=== PATIENT | female | born 1945 | race Caucasian/White ===

== ENCOUNTER → 2017-03-25 | Outpatient (CLI) | payer OTHER ==
[2017-03-25 14:17] LABS: ALB/GLOB RATIO 1.2 (0.9-2); ALT/SGPT 29 U/L (12-78); AST/SGOT 18 U/L (15-37); BLOOD UREA NITROGEN 23 mg/dl (7-18); BUN/CREATININE RATIO 19.1 (10-20); CARBON DIOXIDE 30 mmol/L (21-32); CHLORIDE 103 mmol/L (98-107); CHOLESTEROL 184 mg/dl (0-200); GLUCOSE 128 mg/dl (70-99); MAGNESIUM 2.3 mg/dl (1.8-2.4); SODIUM 141 mmol/L (136-145); TRIGLYCERIDES 92 mg/dl (0-150); VERY LOW DENSITY LIPOPROT CALC 18 mg/dl
[2017-03-25 14:21] LABS: ALKALINE PHOSPHATASE 36 U/L (45-117); CALCIUM 10.7 mg/dl (8.5-10.1); CHOLESTEROL/HDL RATIO 2.7; HDL CHOLESTEROL 68 mg/dl; LDL CHOLESTEROL CALCULATED 98 mg/dl
[2017-03-25 14:25] LABS: ESTIMATED AVERAGE GLUCOSE 140 mg/dl; HA1C FLAG Normal (Normal)
== END | disposition home or self-care (01) ==
LOC: C.LABMFLN 08:35
PROVIDERS: ATTEND Family Medicine
DX: Z00.00 Encounter for general adult medical examination without abnormal findings (principal); E11.9 Type 2 diabetes mellitus without complications; R35.0 Frequency of micturition; E78.5 Hyperlipidemia, unspecified; E55.9 Vitamin D deficiency, unspecified; E83.42 Hypomagnesemia

== ENCOUNTER → 2017-08-18 | Outpatient (CLI) | payer OTHER, MEDICARE ==
--- NOTE | 2017-08-18 13:09 | MAMMOGRAPHY REPORT ---
BILATERAL DIGITAL SCREENING MAMMOGRAM WITH CAD: 08/18/2017 CLINICAL HISTORY: Routine screening examination. TECHNIQUE: Bilateral CC, MLO and repeat right CC view with the nipple in profile were obtained. Cur rent study was also evaluated with a Computer Aided Detection (CAD) system. COMPARISON: Comparison is made to exams dated: 08/14/2015 mammogram, 08/15/2016 mammogram, 08/11/2014 m ammogram - [facility], 01/12/2013 mammogram - [facility], 3 mammogram - [facility], and 12/06/2011 mammogram - [facility]. BREAST COMPOSITION: There are scattered areas of fibroglandular density in both breasts. FINDINGS: A linear scar marker overlies the upper inner quadrant of the left breast, and 3 circular m ole markers project over the right breast. There are a few benign calcifications scattered bilateral ly. No new suspicious mass, architectural distortion or cluster of microcalcifications is seen. IMPRESSION: ACR BI-RADS CATEGORY 1: NEGATIVE There is no mammographic evidence of malignancy. A 1 year screening mammogram is recommended. The pa tient will receive written notification of the results. Approximately 10% of breast cancers are not detected with mammography. A negative mammographic report should not delay biopsy if a clinically suggestive mass is present. Amanda Muhammad M.D. ay/:08/18/2017 10:37:34 Social Research Assistant: Janelle Sinha RT(R)(M), [facility] letter sent: Normal 1/2 BI-RADS Code: ACR BI-RADS Category 1: Negative
== END | disposition home or self-care (01) ==
LOC: C.MAMM 09:20
PROVIDERS: ATTEND Surgery
DX: Z12.31 Encounter for screening mammogram for malignant neoplasm of breast (principal)

== ENCOUNTER → 2017-09-29 | Outpatient (CLI) | payer OTHER, MEDICARE ==
[2017-09-29 13:19] LABS: ESTIMATED AVERAGE GLUCOSE 146 mg/dl; HA1C FLAG Normal (Normal)
[2017-09-29 13:36] LABS: ALT/SGPT 22 U/L (12-78); BLOOD UREA NITROGEN 19 mg/dl (7-18); CALCIUM 9.4 mg/dl (8.5-10.1); CARBON DIOXIDE 28 mmol/L (21-32); CHLORIDE 104 mmol/L (98-107); CHOLESTEROL 172 mg/dl (0-200); CREATININE 1.04 mg/dl (0.60-1.20); GLUCOSE 128 mg/dl (70-99); MAGNESIUM 1.9 mg/dl (1.8-2.4); SODIUM 139 mmol/L (136-145); TRIGLYCERIDES 93 mg/dl (0-150); VERY LOW DENSITY LIPOPROT CALC 19 mg/dl
[2017-09-29 13:44] LABS: ALB/GLOB RATIO 0.9 (0.9-2); ALKALINE PHOSPHATASE 34 U/L (45-117); AST/SGOT 19 U/L (15-37); CHOLESTEROL/HDL RATIO 2.8; HDL CHOLESTEROL 61 mg/dl; LDL CHOLESTEROL CALCULATED 92 mg/dl
== END | disposition home or self-care (01) ==
LOC: C.LABMFLN 07:56
PROVIDERS: ATTEND Family Medicine
DX: E11.9 Type 2 diabetes mellitus without complications (principal); E05.00 Thyrotoxicosis with diffuse goiter without thyrotoxic crisis or storm; F32.9 Major depressive disorder, single episode, unspecified; E78.5 Hyperlipidemia, unspecified; E55.9 Vitamin D deficiency, unspecified; E83.42 Hypomagnesemia

== ENCOUNTER → 2017-10-08 | Outpatient (CLI) | payer OTHER, MEDICARE ==
[2017-10-08 18:22] LABS: THYROID STIMULATING HORMONE 2.14 uIu/ml (0.300-4.500)
== END | disposition home or self-care (01) ==
LOC: C.LABMFLN 10:50
PROVIDERS: ATTEND Family Medicine
DX: E05.00 Thyrotoxicosis with diffuse goiter without thyrotoxic crisis or storm (principal)

== ENCOUNTER → 2017-10-22 | Outpatient (CLI) | payer OTHER ==
--- NOTE | 2017-10-22 12:06 | EXERCISE STRESS ECHO ---
*NOTICE TO RECEIVING REPUBLICAN AGENCY This information is strictly Confidential and protected under [place] law. [place] law prohibits you from making any further disclosure of this information unless further disclosure is expressly permitted by the written consent of the person to whom it pertains or is authorized by law. A general authorization for the release of medical or other information is not sufficient for this purpose. Hospital accepts no responsibility if the information is made available to any other person, INCLUDING THE PATIENT. Interpretation Summary * This was a normal stress echocardiogram. * The stress echocardiogram is negative for inducible ischemia. * The ST segment changes following exercise are suggestive but not diagnostic of myocardial ischemia. Resting echocardiogram with mild concentric left ventricular hypertrophy and class 1 left ventricular diastolic dysfunction. Trace mitral regurgitation. Trace tricuspid regurgitation. Trace pulmonic regurgitation. Small circumferential pericardial effusion without evidence of cardiac tamponade. * -- Conclusions -- * Aortic valve sclerosis mild, without significant aortic valvular stenosis. Procedure Details * ECHOEX, CPT #[id number] * ECHO DOPPLER, CPT #[id number] * ECHO COLOR FLOW, CPT #[id number] * The study was technically difficult with many images being suboptimal in quality. * A contrast injection of Definity was performed to improve assessment of LV function. * Contrast was injected into an intravenous site in the left arm. * One vial of Definity ultrasound contrast was diluted in normal saline to a total volume of 10 ml. A total of '5' ml of solution was administered during imaging. * Lot # [id number] of Definity utilized for procedure. * Expiration date 11/17. * The attending nurse who injected the contrast agent was REYMUNDO GARCIA RN. Left Ventricle * The left ventricle is normal in size. * There is mild concentric left ventricular hypertrophy. * Ejection Fraction = 65-70%. * Left ventricular systolic function is normal. * A full diastolic examination was done with clinical findings of Class I diastolic dysfunction. * Resting wall motion: Normal. Stress wall motion: Appropriate increase in Left ventricular systolic function and decrease in cavity size. No stress induced segmental wall motion abnormalities. * The left ventricular ejection fraction increases normally with stress. The left ventricular end-systolic cavity size reduces post-stress (normal response). The left ventricular wall motion with stress is normal. Right Ventricle * The right ventricle is normal in size and function. Atria * The left atrial size is normal. * Right atrial size is normal. Mitral Valve * There is mild mitral annular calcification. * There is no mitral valve stenosis. * There is trace mitral regurgitation. Tricuspid Valve * The tricuspid valve is not well visualized. * There is no tricuspid stenosis. * There is trace tricuspid regurgitation. * Right ventricular systolic pressure is normal. Aortic Valve * The aortic valve is trileaflet. * The aortic valve opens well. * Aortic valve sclerosis mild, without significant aortic valvular stenosis. * No hemodynamically significant valvular aortic stenosis. * No aortic regurgitation is present. Pulmonic Valve * The pulmonary valve is inadequately visualized, but the Doppler data is adequate for interpretation. * Pulmonic stenosis is absent. * Trace pulmonic valvular regurgitation. Great Vessels * The aortic root is normal size. Pericardium * Small pericardial effusion. * There are no echocardiographic indications of cardiac tamponade. Stress Parameters * The baseline ECG displays normal sinus rhythm. * The baseline ECG displays normal ST segments. * 0.3 - 0.7 mm horizontal to upsloping inferolateral ST depressions. * Rest heart rate was '66' BPM. * Rest blood pressure was '121/70' * Maximum heart rate achieved was 127 bpm. * Maximum heart rate was 85 % of maximum age-predicted heart rate. * Maximum blood pressure was '173/56' * Total exercise time was '4:42' * Maximum exercise MET level achieved was '6.60' METS * Maximum treadmill speed was '2.50' miles per hour. * Maximum treadmill elevation was '12.00'% grade. * Exercise was terminated due to 'SOB' * The patient exhibited dyspnea during exercise. * Normal blood pressure response to exercise. * Exercise was stopped due to dyspnea. MMode 2D Measurements and Calculations IVSd 1.3 cm IVSs 2.5 cm LVIDd 4.3 cm LVIDs 2.8 cm LVPWd 1.3 cm LVPWs 1.5 cm IVS/LVPW 0.98 FS 36.6 % EDV(Teich) 84.8 ml ESV(Teich) 28.3 ml EF(Teich) 66.6 % EDV(cubed) 81.6 ml ESV(cubed) 20.8 ml EF(cubed) 74.5 % % IVS thick 97.1 % % LVPW thick 15.9 % LV mass(C)d 203.9 grams LV mass(C)dI 117.5 grams/m\S\2 LV mass(C)s 235.7 grams LV mass(C)sI 135.8 grams/m\S\2 SV(Teich) 56.5 ml SI(Teich) 32.6 ml/m\S\2 SV(cubed) 60.8 ml SI(cubed) 35.0 ml/m\S\2 Ao root diam 3.7 cm Ao root area 10.6 cm\S\2 ACS 1.5 cm LA dimension 3.3 cm asc Aorta Diam 3.2 cm LA/Ao 0.89 LVOT diam 1.9 cm LVOT area 2.8 cm\S\2 LVAd ap4 20.4 cm\S\2 LVLd ap4 6.9 cm EDV(MOD-sp4) 49.3 ml EDV(sp4-el) 50.9 ml LVAs ap4 10.5 cm\S\2 LVLs ap4 5.4 cm ESV(MOD-sp4) 17.0 ml ESV(sp4-el) 17.2 ml EF(MOD-sp4) 65.4 % EF(sp4-el) 66.3 % LVAd ap2 14.3 cm\S\2 LVLd ap2 6.0 cm EDV(MOD-sp2) 29.6 ml EDV(sp2-el) 28.9 ml LVAs ap2 8.0 cm\S\2 LVLs ap2 5.1 cm ESV(MOD-sp2) 10.3 ml ESV(sp2-el) 10.6 ml EF(MOD-sp2) 65.3 % EF(sp2-el) 63.3 % LVLd %diff -15.36 % EDV(MOD-bp) 40.9 ml LVLs %diff -7.15 % ESV(MOD-bp) 13.8 ml EF(MOD-bp) 66.3 % SV(MOD-sp4) 32.2 ml SI(MOD-sp4) 18.6 ml/m\S\2 SV(MOD-sp2) 19.3 ml SI(MOD-sp2) 11.1 ml/m\S\2 SV(MOD-bp) 27.2 ml SI(MOD-bp) 15.6 ml/m\S\2 SV(sp4-el) 33.8 ml SI(sp4-el) 19.5 ml/m\S\2 SV(sp2-el) 18.3 ml SI(sp2-el) 10.6 ml/m\S\2 Doppler Measurements and Calculations MV E max vance 90.1 cm/sec MV A max vance 104.6 cm/sec MV E/A 0.86 MV dec time 0.37 sec Ao V2 max 160.5 cm/sec Ao max PG 10.3 mmHg Ao max PG (full) 6.8 mmHg EDWARD(V,A) 1.6 cm\S\2 DEWARD(V,D) 1.6 cm\S\2 LV V1 max PG 3.5 mmHg LV V1 max 93.8 cm/sec PA V2 max 89.0 cm/sec PA max PG 3.2 mmHg PI end-d vance 105.3 cm/sec TR max vance 228.6 cm/sec
== END | disposition home or self-care (01) ==
LOC: C.CPL 09:13
PROVIDERS: ATTEND Family Medicine
DX: R06.09 Other forms of dyspnea (principal)

== ENCOUNTER → 2017-11-12 | Outpatient (CLI) | payer OTHER ==
--- NOTE | 2017-11-12 11:00 | DIAGNOSTIC IMAGING REPORT ---
CT SCAN OF THE CHEST WITHOUT IV CONTRAST CLINICAL HISTORY: Pulmonary nodules. COMPARISON STUDY: No priors. TECHNIQUE: CT scan of the thorax was performed from the thoracic inlet to the upper abdomen. Images are reviewed in the axial, sagittal, and coronal planes. IV contrast was not administered for this examination. A dose lowering technique was utilized adhering to the principles of ALARA. CT DOSE: 232.12 mGycm FINDINGS: Thyroid: Imaged portions of the thyroid gland are normal in size and attenuation. Thoracic aorta: There is atherosclerotic calcification of the thoracic aorta, which is normal in caliber and demonstrates 4-vessel variant arch anatomy. Heart: The heart is enlarged and there is a small to moderate pericardial effusion. The coronary arteries are densely calcified. The pulmonary trunk is dilated, measuring 3.6 cm in diameter. This suggests pulmonary artery hypertension. Lungs and pleural spaces: There is no airspace consolidation or pleural effusion. Linear atelectasis versus scarring is present at both lung bases. No concerning pulmonary lesion is seen. A large calcified granuloma is present at the right lung base. The trachea and central airways are clear. Mediastinum: There are scattered subcentimeter mediastinal lymph nodes, some of which contain coarse calcifications. Nicole: Not well assessed without IV contrast. There are small calcified right hilar nodes. Axillae: There is no axillary lymphadenopathy. Upper abdomen: Cholecystectomy clips are noted. Central intrahepatic biliary ductal dilatation is likely on a postoperative basis. There are calcified hepatic and splenic granulomas. A tiny hiatal hernia is observed. Skeletal structures: The skeletal structures are osteopenic. No lytic or blastic bony lesions are seen. IMPRESSION: 1. There is no airspace consolidation or pleural effusion. 2. No concerning pulmonary lesion is seen. 3. Cardiomegaly noting a small to moderate pericardial effusion. 4. There is evidence of remote granulomas infection, including a right lower lobe granuloma, calcification containing mediastinal and hilar lymph nodes, as well as calcified hepatic and splenic granulomas. 5. Additional findings as above. Electronically signed by: Rico Sharp M.D. 11/12/2017 10:59 AM Dictated Date/Time: 11/12/2017 10:53 AM
== END | disposition home or self-care (01) ==
LOC: C.CTS 10:33
PROVIDERS: ATTEND Family Medicine
DX: R91.8 Other nonspecific abnormal finding of lung field (principal)

== ENCOUNTER → 2018-04-01 | Outpatient (CLI) | payer OTHER ==
[2018-04-01 13:13] LABS: BASO % 0.8 %; BASO ABS # 0.04 K/uL (0-0.2); EOS % 3.2 %; EOS ABS # 0.17 K/uL (0-0.5); HEMATOCRIT 40.1 % (37-47); IG# 0.01 K/uL (0.00-0.02); LYMPH % 21.8 %; LYMPH ABS # 1.16 K/uL (1.2-3.4); MEAN CELL VOLUME 94.1 fL (80-100); MEAN CORPUSCULAR HEMOGLOBIN 30.5 pg (25-34); MEAN CORPUSCULAR HGB CONC 32.4 g/dl (32-36); MEAN PLATELET VOLUME 9.5 fL (7.4-10.4); MONO % 10.1 %; MONO ABS # 0.54 K/uL (0.11-0.59); NEUT % 63.9 %; NEUT ABS # 3.41 K/uL (1.4-6.5); PLATELET COUNT 389 K/uL (130-400); RED CELL DISTRIBUTION WIDTH CV 13.6 % (11.5-14.5); RED CELL DISTRIBUTION WIDTH SD 46.8 fL (36.4-46.3); WHITE BLOOD COUNT 5.33 K/uL (4.8-10.8)
[2018-04-01 13:47] LABS: HEMOGLOBIN A1C 6.7 % (4.5-5.6)
[2018-04-01 14:11] LABS: ALBUMIN 3.8 gm/dl (3.4-5.0); ALT/SGPT 29 U/L (12-78); AST/SGOT 30 U/L (15-37); BLOOD UREA NITROGEN 15 mg/dl (7-18); CALCIUM 10.1 mg/dl (8.5-10.1); CARBON DIOXIDE 29 mmol/L (21-32); CREATININE 1.15 mg/dl (0.60-1.20); GLUCOSE 130 mg/dl (70-99); POTASSIUM 3.7 mmol/L (3.5-5.1); SODIUM 137 mmol/L (136-145)
[2018-04-01 14:24] LABS: ALKALINE PHOSPHATASE 38 U/L (45-117); CHOLESTEROL 170 mg/dl (0-200); LDL CHOLESTEROL CALCULATED 97 mg/dl
== END | disposition home or self-care (01) ==
LOC: C.LABMFLN 09:22
PROVIDERS: ATTEND Family Medicine
DX: E11.9 Type 2 diabetes mellitus without complications (principal); J45.909 Unspecified asthma, uncomplicated; E05.00 Thyrotoxicosis with diffuse goiter without thyrotoxic crisis or storm; E78.5 Hyperlipidemia, unspecified; E55.9 Vitamin D deficiency, unspecified; E83.42 Hypomagnesemia; R05 Cough; R06.09 Other forms of dyspnea

== ENCOUNTER → 2018-04-02 | Outpatient (CLI) | payer OTHER ==
[2018-04-02 14:16] LABS: CREATININE RANDOM URINE 89.8 mg/dl
== END | disposition home or self-care (01) ==
LOC: C.LABMFLN 17:53
PROVIDERS: ATTEND Family Medicine
DX: E11.9 Type 2 diabetes mellitus without complications (principal); J45.909 Unspecified asthma, uncomplicated; E05.00 Thyrotoxicosis with diffuse goiter without thyrotoxic crisis or storm; E78.5 Hyperlipidemia, unspecified; E55.9 Vitamin D deficiency, unspecified; E83.42 Hypomagnesemia; R05 Cough

== ENCOUNTER → 2018-04-03 | Outpatient (CLI) | payer OTHER | END | disposition home or self-care (01) | LOC: C.LABMFLN 11:03 | PROVIDERS: ATTEND Family Medicine | DX: R35.0 Frequency of micturition (principal) ==

== ENCOUNTER 2020-06-29 10:43 | Inpatient (IN) ==
[2020-06-29] MEDS ORDERED: MAGNESIUM SULFATE / D5W 1 GM/100 ML BAG IV SCH (12:06)
[2020-06-29] MEDS ORDERED: ALBUTEROL HFA 8 GM INHALER INH ONE (12:06)
[2020-06-29] MEDS ORDERED: SODIUM CHLORIDE 0.9% 1000ML 1,000 ML IV ONE (12:06)
[2020-06-29 12:18] LABS: Basophils # (auto) 0.01 K/uL (0-0.2); Basophils % (auto) 0.1 %; Eosinophils # (auto) 0.03 K/uL (0-0.5); Eosinophils % (auto) 0.4 %; Hematocrit (blood only) 37.5 % (37-47); Hemoglobin 12.4 g/dL (12.0-16.0); Immature Granulocytes # (auto) 0.03 K/uL (0.00-0.02); Immature Granulocytes % (auto) 0.4 %; Lymphocytes # (auto) 0.72 K/uL (1.2-3.4); Lymphocytes % (auto) 9.7 %; Mean Corpuscular Hemoglobin 30.4 pg (25-34); Mean Corpuscular Hgb Conc 33.1 g/dL (32-36); Mean Corpuscular Volume 91.9 fL (80-100); Mean Platelet Volume 10.1 fL (7.4-10.4); Monocytes # (auto) 0.41 K/uL (0.11-0.59); Monocytes % (auto) 5.5 %; Neutrophils # (auto) 6.21 K/uL (1.4-6.5); Neutrophils % (auto) 83.9 %; Platelet Count 399 K/uL (130-400); RDW Standard Deviation 47.7 fL (36.4-46.3); Red Blood Count 4.08 M/uL (4.2-5.4); White Blood Count 7.41 K/uL (4.8-10.8)
[2020-06-29 12:25] LABS: Albumin Level 3.1 gm/dl (3.4-5.0); BUN Creatinine Ratio 18.8 (10-20); C Reactive Protein 16.4 mg/dl (0-0.29); Calcium 9.6 mg/dl (8.5-10.1); Est GFR (African American) 51.4; Est GFR (Non-African American) 44.4; Potassium 3.8 mmol/L (3.5-5.1); Prothrombin Time 10.5 Seconds (9.0-12.0)
[2020-06-29 12:33] LABS: Albumin Globulin Ratio 0.6 (0.9-2); Bilirubin,Total 0.5 mg/dl (0.2-1); Ferritin 385.2 ng/ml (8-388); Total Protein 8.1 gm/dl (6.4-8.2); Troponin I 0.283 ng/ml (0-0.045)
[2020-06-29] MEDS ORDERED: ASPIRIN 81 MG CHEW PO STA (12:35)
[2020-06-29 12:40] LABS: D Dimer 570 ug/L FEU (0-500)
--- NOTE | 2020-06-29 12:45 | Emergency Department Note ---
Impression & Plan Hypoxia, COVID-19, Non-ST elevation [place] (NSTEMI), Weakness ED Provider Note Provider: Santos Farley MD DATE OF SERVICE: 06/29/2020 CHIEF COMPLAINT: Shortness of breath, weakness, fatigue HISTORY OF PRESENT ILLNESS: Patient is a 74-year-old female with a past medical history of well-controlled diabetes, hyperlipidemia, asthma, distant tobacco use, sleep apnea utilizing CPAP at night presenting here today via EMS complaining of weakness fatigue. Patient states she is felt unsteady on her feet but is not really fallen. Denies chest pain. Productive cough reported. Patient states she was seen by her primary doctor on the and tested and was positive for coronavirus. Patient states multi members of her family are positive for coronavirus. Patient denies any recent travel or leg swelling. Patient states that she feels somewhat dehydrated and is thirsty but water tastes bad. Did have a little bit of Cheerios and water today. Denies any nausea or abdominal pain. Some diarrhea is intermittently reported. Hypoxic on room air to the 80s no normal oxygen requirement. Denies feeling significantly wheezy. Patient's 1 relative is hospitalized at [facility] to receive conva lescent plasma. REVIEW OF SYSTEMS: A total of 10 review of systems was obtained and negative except as stated above in the HPI. PAST MEDICAL HISTORY: As noted above MEDICATIONS: Reviewed medication list thanks SOCIAL HISTORY: Lives at home, former smoker, PHYSICAL EXAM: GENERAL: alert and oriented in no acute distress on stretcher Head: normocephalic and atraumatic EYES: No injection, discharge or icterus. NECK: Trachea midline. Supple. ENT: Mucous membranes pink and moist. Pharynx with slight erythema LUNGS: Airway patent. No retractions. HEART: Regular rate and rhythm. No chest wall tenderness ABDOMEN: Soft and non-tender, without guarding or rebound. SKIN: Acyanotic, warm, dry, without rashes EXTREMITIES: Without swelling, tenderness or deformity NEUROLOGICAL: No focal deficits. No aphasia. No facial droop or slurred speech. EK bpm in normal sinus rhythm without PVC or PAC. There is some baseline artifact in V4. No evidence of barring that acute ST elevation or depression. Normal intervals. CONTINUOUS CARDIAC MONITORING: was ordered and showed a heart rate of 62 bpm in normal sinus rhythm Patient's hypertension was referred to the hospitalist HOSPITAL COURSE: 1241 Patient was first seen and H&P performed. 1311 Patient was updated via phone. Discussed plan for admission. Will discuss with the hospitalist. Patient asked I updated her son via phone which was completed. Patient's laboratory studies and imaging reviewed. Differential includes Infection, dehydration, metabolic abnormality, hypo/hyperglycemia, electrolyte disturbance, anemia, hypoxia, cardiac sources, intracerebral event, toxicologic, neurologic, as well as other pathologies. IMPRESSION/MEDICAL DECISION MAKING: Patient presents complaint of weakness. Recent diagnosis of coronavirus. Now hypoxic on room air requiring oxygen. Patient states she is just very very w eak. Basic labs were completed including inflammatory markers associated with coronavirus including d-dimer, ferritin, and LDH. No significant leukocytosis or lymphopenia is noted. No anemia or thrombocytosis or thrombocytopenia is noted. Creatinine fairly similar to baseline. Given some IV fluids here. Slight elevation of AST but no ALT or bilirubin elevation. C-reactive protein is elevated troponin is elevated 0.283. Patient again denies any chest pain. Lipase not elevated. I doubt acute hepatitis or pancreatitis. Doubt acute intra-abdominal surgical process. Lower suspicion this represents acute PE although d-dimer is slightly elevated 570 believe this is likely in the setting of acute coronavirus infection. In any event given the positive troponin patient was given aspirin and discussed with hospitalist team empiric anticoagulation with Lovenox at this time. 1 mg/kg of empiric Lovenox was ordered. A lactate and blood cultures were also ordered. Lactate not significa ntly elevated. Patient given additional aspirin, IV fluids, some magnesium intravenously as well as albuterol for any respiratory support. DIAGNOSIS: Hypoxia, COVID-19 infection, NSTEMI, weakness DISPOSITION: Hospitalist will evaluate Patient was agreeable with this plan. Critical Care I have personally spent 42 minutes of critical care time in the direct managemen t of this patient. This includes bedside care, interpretation of diagnostic studies, and testing, discussion with consultants, patient, and family members, and other required patient management activities. These 42 minutes is in excess of all separately billable procedures. Past Med/Surg History Medical History (Updated 06/29/20 @ 14:59 by Marii Quinn MD) GERD (gastroesophageal reflux disease) (Acute) Graves disease (Acute) Hyperlipidemia (Acute) Hypomagnesemia (Acute) Moderate obstructive sleep apnea (Acute) Multinodular goiter Osteoporosis (Acute) Pulmonary nodules (Acute) Restless legs syndrome (Acute) Type 2 diabetes mellitus (Acute) Urinary urgency (Resolved) Vitamin D deficiency (Acute) Surgical History (Updated 06/29/20 @ 14:59 by Marii Quinn MD) History of cholecystectomy History of corneal transplant No pertinent past surgical history Family History (Updated 10/05/19 @ 07:00 by Dinora Stevens MA) Father Asthma Heart disease Diabetes Hemangioma Glaucoma Mother Stroke Social History (Updated 04/04/20 @ 14:35 by Aria Johnson PA-C) Smoking Status: Former smoker Tobacco Type: Cigarettes Hx Alcohol Use: Yes Hx Substance Use: No Preferred Language: Hebrew Visual Impairment: No Limitations Hearing Ability: Normal marital status: Current Living Situation: Spouse current occupational status: retired Feels Safe at Home: Yes Dental Care, Regularly: Yes Allergies Allergies Allergy/AdvReac Type Severity Reaction Status Date / Time codeine Allergy Verified 06/29/20 11:48 sulfamethoxazole Allergy Verified 06/29/20 11:48 [From Bactrim] trimethoprim [From Bactrim] Allergy Verified 06/29/20 11:48 Home Meds Home Medications Medication Instructions Recorded Confirmed oxygen-air delivery systems #1 10/06/19 10/06/19 acetaminophen [Tylenol Extra 1,000 mg PO Q6H PRN 06/29/20 06/29/20 Strength] bupropion HCl 75 mg PO QAM 06/29/20 06/29/20 cholecalciferol (vitamin D3) 2,000 units PO QAM 06/29/20 06/29/20 clonazepam [Klonopin] 0.5 mg PO TID PRN 06/29/20 06/29/20 escitalopram oxalate [Lexapro] 20 mg PO QAM 06/29/20 06/29/20 fenofibrate 54 mg PO QAM 06/29/20 06/29/20 [id number] 1 puffs INH QAM 06/29/20 06/29/20 [Trelegy Ellipta] loratadine [Allergy Relief 10 mg PO QAM 06/29/20 06/29/20 (loratadine)] magnesium oxide 0 mg PO QAM 06/29/20 06/29/20 meloxicam [Mobic] 15 mg PO QAM 06/29/20 06/29/20 metronidazole [MetroCream] 1 appln TOP DAILY 06/29/20 06/29/20 mirabegron [Myrbetriq] 50 mg PO QAM 06/29/20 06/29/20 montelukast [Singulair] 10 mg PO QPM 06/29/20 06/29/20 oxybutynin chloride 5 mg PO QAM 06/29/20 06/29/20 pantoprazole [Protonix] 40 mg PO QAM 06/29/20 06/29/20 vitamin B complex [B 1 tab PO QAM 06/29/20 06/29/20 Complex-Vitamin B12] Previous Rx's Medication Instructions Recorded albuterol sulfate 90 mcg/actuation 2 puffs INH QID PRN #18 gm 05/24/19 aerosol inhaler metformin 500 mg tablet 500 mg PO BID #180 tab 03/16/20 atorvastatin 80 mg tablet 80 mg PO QPM #90 tab 04/15/20 Results & Data (ED) Vital Signs Vital Signs - 24 hr 06/29/20 11:00 06/29/20 11:08 06/29/20 11:30 Temperature 37.2 C Temperature Source Oral Pulse Rate 60 63 61 Pulse Rate from SpO2 Sensor 63 Pulse Rhythm Regular Respiratory Rate 20 20 28 H Respiratory Effort / Characteristics Non-Labored Spontaneous Respiratory Depth Normal Respiratory Pattern Regular Blood Pressure 123/70 123/70 121/70 Blood Pressure Mean 87 85 83 Pulse Oximetry 96 91 Oxygen Delivery Method Nasal Cannula Oxygen Flow Rate Sepsis Recent Fever Within 48 Hours No Sepsis New/Unexplained Change in Mental Status No Sepsis Action Taken by Nursing No Action Required Oxygen Flow Rate - Titration 5 Pulse Oximetry Post Tiitration 96 06/29/20 12:42 06/29/20 13:30 06/29/20 14:00 Temperature Temperature Source Pulse Rate 64 62 62 Pulse Rate from SpO2 Sensor 64 62 62 Pulse Rhythm Respiratory Rate 24 26 H 24 Respiratory Effort / Characteristics Respiratory Depth Respiratory Pattern Blood Pressure 130/65 115/96 125/69 Blood Pressure Mean 90 102 83 Pulse Oximetry 95 98 96 Oxygen Delivery Method Nasal Cannula Nasal Cannula Nasal Cannula Oxygen Flow Rate 5 5 5 Sepsis Recent Fever Within 48 Hours Sepsis New/Unexplained Change in Mental Status Sepsis Action Taken by Nursing Oxygen Flow Rate - Titration Pulse Oximetry Post Tiitration 06/29/20 14:30 07/30/20 15:00 06/29/20 15:30 Temperature Temperature Source Pulse Rate 66 64 63 Pulse Rate from SpO2 Sensor 66 64 63 Pulse Rhythm Respiratory Rate 31 H 23 31 H Respiratory Effort / Characteristics Respiratory Depth Respiratory Pattern Blood Pressure 116/96 129/76 127/72 Blood Pressure Mean 107 91 94 Pulse Oximetry 97 95 97 Oxygen Delivery Method Nasal Cannula Nasal Cannula Nasal Cannula Oxygen Flow Rate 5 5 5 Sepsis Recent Fever Within 48 Hours Sepsis New/Unexplained Change in Mental Status Sepsis Action Taken by Nursing Oxygen Flow Rate - Titration Pulse Oximetry Post Tiitration 06/29/20 16:00 06/29/20 16:30 06/29/20 17:00 Temperature Temperature Source Pulse Rate 63 64 64 Pulse Rate from SpO2 Sensor 63 64 64 Pulse Rhythm Respiratory Rate 26 H 19 19 Respiratory Effort / Characteristics Respiratory Depth Respiratory Pattern Blood Pressure 124/70 128/76 153/76 H Blood Pressure Mean 94 93 104 Pulse Oximetry 96 97 98 Oxygen Delivery Method Nasal Cannula Nasal Cannula Nasal Cannula Oxygen Flow Rate 5 5 5 Sepsis Recent Fever Within 48 Hours Sepsis New/Unexplained Change in Mental Status Sepsis Action Taken by Nursing Oxygen Flow Rate - Titration Pulse Oximetry Post Tiitration 06/29/20 17:30 06/29/20 17:39 Temperature Temperature Source Pulse Rate 65 65 Pulse Rate from SpO2 Sensor 65 Pulse Rhythm Respiratory Rate 24 24 Respiratory Effort / Characteristics Respiratory Depth Respiratory Pattern Blood Pressure 138/76 138/76 Blood Pressure Mean 96 Pulse Oximetry 98 98 Oxygen Delivery Method Nasal Cannula Room Air Oxygen Flow Rate 5 Sepsis Recent Fever Within 48 Hours Sepsis New/Unexplained Change in Mental Status Sepsis Action Taken by Nursing Oxygen Flow Rate - Titration Pulse Oximetry Post Tiitration Laboratory Data Result diagrams: 06/29/20 11:30 06/29/20 11:30 Lab Results 06/29/20 06/29/20 06/29/20 Range/Units 11:30 11:30 11:30 WBC 7.41 (4.8-10.8) K/uL RBC 4.08 L (4.2-5.4) M/uL Hgb 12.4 (12.0-16.0) g/dL Hct 37.5 (37-47) % MCV 91.9 (80-100) fL MCH 30.4 (25-34) pg MCHC 33.1 (32-36) g/dL RDW Std Deviation 47.7 H (36.4-46.3) fL RDW Coeff of Ambreen 14.0 (11.5-14.5) % Plt Count 399 (130-400) K/uL MPV 10.1 (7.4-10.4) fL Immature Gran % (Auto) 0.4 % Neut % (Auto) 83.9 % Lymph % (Auto) 9.7 % [place] % (Auto) 5.5 % Eos % (Auto) 0.4 % Baso % (Auto) 0.1 % Neut # (Auto) 6.21 (1.4-6.5) K/uL Lymph # (Auto) 0.72 L (1.2-3.4) K/uL [place] # (Auto) 0.41 (0.11-0.59) K/uL Eos # (Auto) 0.03 (0-0.5) K/uL Baso # (Auto) 0.01 (0-0.2) K/uL Immature Gran # (Auto) 0.03 H (0.00-0.02) K/uL PT 10.5 (9.0-12.0) Seconds INR 1.0 (0.9-1.1) D-Dimer 570 H* (0-500) ug/L FEU Sodium 134 L (136-145) mmol/L Potassium 3.8 (3.5-5.1) mmol/L Chloride 103 (98-107) mmol/L Carbon Dioxide 24 (21-32) mmol/L Anion Gap 7.0 (3-11) BUN 23 H (7-18) mg/dl Creatinine 1.21 H (0.6-1.2) mg/dl Est Cr Clr Drug Dosing 41.0 ml/min Est GFR ( Amer) 51.4 Est GFR (Non-Af Amer) 44.4 BUN/Creatinine Ratio 18.8 (10-20) Glucose 109 H (70-99) mg/dl Lactate (0.4-2.0) mmol/L Calcium 9.6 (8.5-10.1) mg/dl Ferritin 385.2 (8-388) ng/ml Total Bilirubin 0.5 (0.2-1) mg/dl AST 64 H (15-37) U/L ALT 46 (12-78) U/L Alkaline Phosphatase 37 L (45-117) U/L Lactate Dehydrogenase (84-246) U/L Troponin I 0.283 H* (0-0.045) ng/ml C-Reactive Protein 16.40 H (0-0.29) mg/dl Total Protein 8.1 (6.4-8.2) gm/dl Albumin 3.1 L (3.4-5.0) gm/dl Globulin 5.0 H (2.5-4.0) gm/dl Albumin/Globulin Ratio 0.6 L (0.9-2) Lipase 149 (73-393) U/L Procalcitonin (0-0.5) ng/ml Urine Color Urine Appearance (Clear) Urine pH (4.5-7.5) Ur Specific [place] (1.000-1.030) Urine Protein (Negative) Urine Glucose (UA) (Negative) Urine Ketones (Negative) Urine Blood (Negative) Urine Nitrite (Negative) Urine Bilirubin (Negative) Urine Urobilinogen (Negative) Ur Leukocyte Esterase (Negative) Urine RBC (0-4) /hpf Urine WBC (0-5) /hpf Ur Epithelial Cells (0-5) /lpf Ur Renal Epithelial Cell (0-5) /lpf Urine Bacteria (Negative) 06/29/20 06/29/20 06/29/20 Range/Units 11:30 11:30 12:30 WBC (4.8-10.8) K/uL RBC (4.2-5.4) M/uL Hgb (12.0-16.0) g/dL Hct (37-47) % MCV (80-100) fL MCH (25-34) pg MCHC (32-36) g/dL RDW Std Deviation (36.4-46.3) fL RDW Coeff of [place]reen (11.5-14.5) % Plt Count (130-400) K/uL MPV (7.4-10.4) fL Immature Gran % (Auto) % Neut % (Auto) % Lymph % (Auto) % [place] % (Auto) % Eos % (Auto) % Baso % (Auto) % Neut # (Auto) (1.4-6.5) K/uL Lymph # (Auto) (1.2-3.4) K/uL [place] # (Auto) (0.11-0.59) K/uL Eos # (Auto) (0-0.5) K/uL Baso # (Auto) (0-0.2) K/uL Immature Gran # (Auto) (0.00-0.02) K/uL PT (9.0-12.0) Seconds INR (0.9-1.1) D-Dimer (0-500) ug/L FEU Sodium (136-145) mmol/L Potassium (3.5-5.1) mmol/L Chloride (98-107) mmol/L Carbon Dioxide (21-32) mmol/L Anion Gap (3-11) BUN (7-18) mg/dl Creatinine (0.6-1.2) mg/dl Est Cr Clr Drug Dosing ml/min Est GFR ( Amer) Est GFR (Non-Af Amer) BUN/Creatinine Ratio (10-20) Glucose (70-99) mg/dl Lactate (0.4-2.0) mmol/L Calcium (8.5-10.1) mg/dl Ferritin (8-388) ng/ml Total Bilirubin (0.2-1) mg/dl AST (15-37) U/L ALT (12-78) U/L Alkaline Phosphatase (45-117) U/L Lactate Dehydrogenase 365 H (84-246) U/L Troponin I (0-0.045) ng/ml C-Reactive Protein (0-0.29) mg/dl Total Protein (6.4-8.2) gm/dl Albumin (3.4-5.0) gm/dl Globulin (2.5-4.0) gm/dl Albumin/Globulin Ratio (0.9-2) Lipase (73-393) U/L Procalcitonin < 0.05 (0-0.5) ng/ml Urine Color Yellow Urine Appearance Clear (Clear) Urine pH 5.5 (4.5-7.5) Ur Specific [place] 1.009 (1.000-1.030) Urine Protein Negative (Negative) Urine Glucose (UA) Negative (Negative) Urine Ketones Negative (Negative) Urine Blood Negative (Negative) Urine Nitrite Negative (Negative) Urine Bilirubin Negative (Negative) Urine Urobilinogen Negative (Negative) Ur Leukocyte Esterase 1+ H (Negative) Urine RBC 0-4 (0-4) /hpf Urine WBC 10-30 H (0-5) /hpf Ur Epithelial Cells 0-5 (0-5) /lpf Ur Renal Epithelial Cell 0-5 (0-5) /lpf Urine Bacteria 4+ H (Negative) 06/29/20 Range/Units 12:40 WBC (4.8-10.8) K/uL RBC (4.2-5.4) M/uL Hgb (12.0-16.0) g/dL Hct (37-47) % MCV (80-100) fL MCH (25-34) pg MCHC (32-36) g/dL RDW Std Deviation (36.4-46.3) fL RDW Coeff of [place] (11.5-14.5) % Plt Count (130-400) K/uL MPV (7.4-10.4) fL Immature Gran % (Auto) % Neut % (Auto) % Lymph % (Auto) % [place] % (Auto) % Eos % (Auto) % Baso % (Auto) % Neut # (Auto) (1.4-6.5) K/uL Lymph # (Auto) (1.2-3.4) K/uL [place] # (Auto) (0.11-0.59) K/uL Eos # (Auto) (0-0.5) K/uL Baso # (Auto) (0-0.2) K/uL Immature Gran # (Auto) (0.00-0.02) K/uL PT (9.0-12.0) Seconds INR (0.9-1.1) D-Dimer (0-500) ug/L FEU Sodium (136-145) mmol/L Potassium (3.5-5.1) mmol/L Chloride (98-107) mmol/L Carbon Dioxide (21-32) mmol/L Anion Gap (3-11) BUN (7-18) mg/dl Creatinine (0.6-1.2) mg/dl Est Cr Clr Drug Dosing ml/min Est GFR ( Amer) Est GFR (Non-Af Amer) BUN/Creatinine Ratio (10-20) Glucose (70-99) mg/dl Lactate 1.8 (0.4-2.0) mmol/L Calcium (8.5-10.1) mg/dl Ferritin (8-388) ng/ml Total Bilirubin (0.2-1) mg/dl AST (15-37) U/L ALT (12-78) U/L Alkaline Phosphatase (45-117) U/L Lactate Dehydrogenase (84-246) U/L Troponin I (0-0.045) ng/ml C-Reactive Protein (0-0.29) mg/dl Total Protein (6.4-8.2) gm/dl Albumin (3.4-5.0) gm/dl Globulin (2.5-4.0) gm/dl Albumin/Globulin Ratio (0.9-2) Lipase (73-393) U/L Procalcitonin (0-0.5) ng/ml Urine Color Urine Appearance (Clear) Urine pH (4.5-7.5) Ur Specific [place] (1.000-1.030) Urine Protein (Negative) Urine Glucose (UA) (Negative) Urine Ketones (Negative) Urine Blood (Negative) Urine Nitrite (Negative) Urine Bilirubin (Negative) Urine Urobilinogen (Negative) Ur Leukocyte Esterase (Negative) Urine RBC (0-4) /hpf Urine WBC (0-5) /hpf Ur Epithelial Cells (0-5) /lpf Ur Renal Epithelial Cell (0-5) /lpf Urine Bacteria (Negative) Administered Medications Dexamethasone (Decadron) 6 mg PO DAILY DONTE Stop: 07/29/20 14:59 Last Admin: 06/29/20 17:15 Dose: 6 mg Documented by: [id number] Enoxaparin Sodium (Lovenox) 80 mg SQ Q12H DONTE; Protocol Stop: 07/29/20 13:59 Last Admin: 06/29/20 14:43 Dose: 80 mg Documented by: [id number] Discontinued Medications Albuterol (Ventolin Hfa) 4 puffs INH NOW ONE Stop: 06/29/20 12:07 Last Admin: 06/29/20 12:25 Dose: 4 puffs Documented by: [id number] Aspirin (Aspirin Chew) 324 mg PO NOW STA Stop: 06/29/20 12:36 Last Admin: 06/29/20 12:56 Dose: 324 mg Documented by: [id number] Sodium Chloride (Nss 1000ml) 1,000 mls @ 999 mls/hr IV .Q1H1M ONE Stop: 06/29/20 13:06 Last Infusion: 06/29/20 13:32 Dose: 0 mls/hr Documented by: [id number] Admin: 06/29/20 12:25 Dose: 999 mls/hr Documented by: [id number] Magnesium Sulfate/Dextrose (Magnesium Sulfate / D5w) 1 gm in 100 mls @ 400 mls/hr IV Q15M DONTE Stop: 06/29/20 12:20 Last Infusion: 06/29/20 12:56 Dose: 0 mls/hr Documented by: [id number] Admin: 06/29/20 12:26 Dose: 400 mls/hr Documented by: [id number] Remdesivir 200 mg/ Sodium (Chloride) 250 mls @ 125 mls/hr IV 1600 ONE; Protocol Stop: 06/29/20 17:59 Last Admin: 06/29/20 17:17 Dose: 125 mls/hr Documented by: [id number] Discharge Plan Visit Data Chief Complaint: Shortness of Breath/Dyspnea ED Provider: Santos Farley Discharge Problem: Hypoxia, COVID-19, Non-ST elevation [place] (NSTEMI), Weakness Patient Disposition: Admitted As Inpatient Condition: Fair Discharge Instructions Interventions: ED Discharge Assessment Last Done: 06/29/20 17:39 Forms Stand Alone Forms: [place] Prescriptions Prescriptions: No Action metformin 500 mg tablet 500 mg PO BID Qty: 180 RF: 3 atorvastatin 80 mg tablet 80 mg PO QPM Qty: 90 RF: 0 (DME) oxygen-air delivery systems device See Dose Instructions .ROUTE .MEDSUPPLY Qty: 1 RF: 0 albuterol sulfate [Ventolin HFA] 90 mcg/actuation HFA aerosol inhaler 2 puffs INH QID PRN (Reason: shortness of breath or wheezing) Qty: 18 RF: 3 magnesium oxide 400 mg magnesium Capsule 0 mg PO QAM RF: 0 meloxicam [Mobic] 15 mg tablet 15 mg PO QAM RF: 0 clonazepam [Klonopin] 0.5 mg tablet 0.5 mg PO TID PRN (Reason: restless leg syndrome) RF: 0 pantoprazole [Protonix] 40 mg tablet,delayed release (DR/EC) 40 mg PO QAM RF: 0 metronidazole [MetroCream] 0.75 % cream 1 appln TOP DAILY RF: 0 bupropion HCl 75 mg tablet 75 mg PO QAM RF: 0 vitamin B complex [B Complex-Vitamin B12] tablet 1 tab PO QAM RF: 0 montelukast [Singulair] 10 mg tablet 10 mg PO QPM RF: 0 oxybutynin chloride 5 mg tablet 5 mg PO QAM RF: 0 loratadine [Allergy Relief (loratadine)] 10 mg tablet 10 mg PO QAM RF: 0 escitalopram oxalate [Lexapro] 20 mg tablet 20 mg PO QAM RF: 0 cholecalciferol (vitamin D3) 2,000 unit capsule 2,000 units PO QAM RF: 0 fenofibrate 54 mg tablet 54 mg PO QAM RF: 0 Myrbetriq 50 mg tablet extended release 24 hr 50 mg PO QAM RF: 0 Trelegy Ellipta 100-62.5-25 mcg blister with device 1 puffs INH QAM RF: 0 acetaminophen [Tylenol Extra Strength] 500 mg Tablet 1,000 mg PO Q6H PRN (Reason: Pain) RF: 0 Referrals Referrals: Rico Arevalo MD [Primary Care Provider] -
--- NOTE | 2020-06-29 12:54 | XRay Report ---
XR chest 1V portable HISTORY: 74 years-old Female sob acute shortness of breath COMPARISON: Chest and rib radiographs 11/28/2018 TECHNIQUE: Portable AP view of the chest FINDINGS: Cardiac silhouette is enlarged. Pulmonary vascular congestion with interstitial coarsening. Trace ple ural effusions. There is no pneumothorax. Minimal bibasilar opacities. Degenerative changes of the [place] and spine. IMPRESSION: 1. Cardiomegaly with pulmonary vascular congestion and bilateral reticular opacities suggestive of pu lmonary edema. Multifocal pneumonitis could appear similarly. 2. Trace pleural effusions. ACT 112: Negative or not required by law. The above report was generated using voice recognition software. It may contain grammatical, syntax o r spelling errors. Electronically signed by: León Diggs M.D. 06/29/2020 12:53 PM
[2020-06-29 13:00] LABS: Appearance Urine Clear (Clear); Bilirubin Urine Negative (Negative); Blood Urine Negative (Negative); Color Urine Yellow; Glucose Urine UA Negative (Negative); Ketones Urine Negative (Negative); Leukocyte Esterase Urine 1+ (Negative); Nitrite Urine Negative (Negative); Protein Urine Negative (Negative); Specific Gravity Urine 1.009 (1.000-1.030); Urobilinogen Urine Negative (Negative); pH Urine 5.5 (4.5-7.5)
[2020-06-29 13:10] LABS: Bacteria Urine 4+ (Negative); Epithelial Cell Urine 0-5 /lpf (0-5)
[2020-06-29 13:11] LABS: RBC Urine 0-4 /hpf (0-4); Renal Epithelial Cells Urine 0-5 /lpf (0-5)
[2020-06-29] MEDS ORDERED: ENOXAPARIN 1 MG/KG SQ ONE (13:52)
--- NOTE | 2020-06-29 14:05 | History & Physical Report ---
Date of Service June 29, 2020 Assessment & Plan (1) COVID-19: Diagnosed with COVID-19 on 06/21 as an outpatient. Now here with development of acute respiratory failure with hypoxia. Markers of inflammation are modestly elevated and troponin is positive which may be a poor prognostic indicator Given that she is requiring 5 L nasal cannula with her respiratory failure, qualifies as having severe COVID -Admit to PCU -Discussed case with pulmonary service-okay to start Remdesivir x5-day course- this may not be as effective as she is at the seventh day of her illness currently, however I feel it is worth the potential benefit -Begin dexamethasone 6 mg p.o. once daily x10-day course -Continue supplemental O2 to keep pulse ox greater than 92%-she is okay with CPAP if needed or high flow nasal cannula, but does not want intubation at any point -Consider IV Lasix in the morning if oxygenation worsens overnight given that she has trace pleural effusions and pulmonary vascular congestion although I feel this is mostly noncardiogenic -Follow chest x-ray in the morning -Follow COVID labs to include CBC, CMP, CRP, LDH, ferritin, d-dimer -Tylenol as needed for fevers or headache (2) Hypoxia: As noted above, secondary to COVID Chest x-ray with bilateral diffuse pulmonary infiltrates, procalcitonin is negative-do not think she has bacterial pneumonia -Supplemental O2 as above and treating with dexamethasone and antiviral as above -Consider IV Lasix as above (3) Elevated troponin: Troponin mildly elevated at 0.28 on admission, she has no chest pain or history of CAD Likely secondary to hypoxia and demand ischemia from COVID ECG is without ischemic changes -Trend serial troponin -Started on Lovenox full therapeutic dosing for now especially as patients with COVID are at increased risk for thrombotic events and she may be having an NSTEMI -If troponin does not go up significantly, would likely decrease Lovenox back to DVT prophylaxis dosing in the setting of COVID -Cannot get an echocardiogram as she is positive for COVID (4) Asthma: With a history of underlying mild intermittent asthma -Make her albuterol inhaler 2 puffs 4 times daily scheduled -Giving dexamethasone -Supplemental O2 -Continue home inhaled corticosteroid/LABA/LAMA (5) Anxiety: Continue home clonazepam, Lexapro, and Wellbutrin (6) Type 2 diabetes mellitus: Patient reports she has prediabetes, however hemoglobin A1c is in the diabetic range -Now getting corticosteroids here which will likely cause hyperglycemia -Accu-Cheks q. before meals and at bedtime Insulin sliding scale -May need to add on Lantus -Check hemoglobin A1c in the morning (7) Moderate obstructive sleep apnea: Ordered her CPAP for at nighttime-she is not clear if her setting at home- we will start with 8 cm H2O (8) Restless legs syndrome: Stable -Continue home clonazepam as needed (9) Multinodular goiter: Is not on thyroid hormone replacement at this point and is being monitored by PCP TSH in 03/2020 was normal at 2.23 (10) Allergic rhinitis: Continue Singulair (11) Depression: Continue Lexapro, Wellbutrin as above (12) GERD (gastroesophageal reflux disease): Continue PPI daily (13) Hyperlipidemia: Continue statin (14) Osteoporosis: Noted Continue vitamin D (15) DVT prophylaxis: Lovenox therapeutic dosing, SCDs Disposition-admit to PCU, expected least a 2 midnight stay History of Present Illness Chief Complaint: Shortness of breath, COVID-19+ Primary Care Provider: Rico Arevalo MD This patient is a 74-year-old female with a history of asthma with COPD, DM 2, GERD,hyperlipidemia, SUDHAKAR on CPAP, RLS, multinodular thyroid goiter, environmental allergies/allergic rhinitis, overactive bladder, osteoporosis, depression/anxiety, and recent diagnosis of COVID-19 on 06/21 who presents to the ER with worsening shortness of breath and noted a pulse ox at home of 87-88%. She began with symptoms of COVID 7 days ago when she developed a frontal headache and thought she had a sinus infection. She then had body aches all over and a few days of diarrhea which is now all resolved. She continues to have low appetite and fatigue, but has been forcing herself to eat despite a loss of taste. Her headaches are now gone. She denies ever having any fevers at home, but did have chills yet her temperature was always normal on 2 different thermometers. She also developed a cough that was minimally productive but did not really feel short of breath. Her daughter is a nurse who encouraged her to come in today when her oxygen levels were getting lower. She denies any chest pain at all. The patient knows that she got COVID from her sister and [id number] whom she was spending a lot of time with lately and then they also are COVID positive. Her daughter is also now testing positive, as well as 3 of the 5 women from her knitting group that she attended last week before she knew that she had COVID. In the ER, she was found to be with a pulse ox of 87% on room air and was placed on 5 L nasal cannula to bring her pulse ox up to the mid high 90s. She felt much improved after this. A chest x-ray demonstrated cardiomegaly with pulmonary vascular congestion and bilateral reticular opacities suggestive of pulmonary edema or multifocal pneumonitis. There was also trace pleural effusions bilaterally. She had some lymphopenia on her CBC, a mildly elevated d-dimer, was mildly hyponatremic with a mildly elevated creatinine at 1.21 above her baseline, AST was slightly elevated at 64, LDH was elevated at 365, CRP was quite elevated at 16.4, and a procalcitonin was normal. Her troponin was mildly elevated at 0.283. Her ECG was without any ischemic changes She will be admitted to the hospital for acute respiratory failure with hypoxia, elevated troponin in the setting of COVID-19. Allergies Allergy/AdvReac Type Severity Reaction Status Date / Time codeine Allergy Verified 06/29/20 11:48 sulfamethoxazole Allergy Verified 06/29/20 11:48 [From Bactrim] trimethoprim [From Bactrim] Allergy Verified 06/29/20 11:48 Home Medications Home Medications Medication Instructions Recorded Confirmed Type albuterol sulfate 90 mcg/actuation 2 puffs INH QID PRN #18 gm 05/24/19 06/29/20 Rx aerosol inhaler oxygen-air delivery systems #1 10/06/19 10/06/19 History metformin 500 mg tablet 500 mg PO BID #180 tab 03/16/20 06/29/20 Rx atorvastatin 80 mg tablet 80 mg PO QPM #90 tab 04/15/20 06/29/20 Rx acetaminophen [Tylenol Extra 1,000 mg PO Q6H PRN 06/29/20 06/29/20 History Strength] bupropion HCl 75 mg PO QAM 06/29/20 06/29/20 History cholecalciferol (vitamin D3) 2,000 units PO QAM 06/29/20 06/29/20 History clonazepam [Klonopin] 0.5 mg PO TID PRN 06/29/20 06/29/20 History escitalopram oxalate [Lexapro] 20 mg PO QAM 06/29/20 06/29/20 History fenofibrate 54 mg PO QAM 06/29/20 06/29/20 History [id number] 1 puffs INH QAM 06/29/20 06/29/20 History [Trelegy Ellipta] loratadine [Allergy Relief 10 mg PO QAM 06/29/20 06/29/20 History (loratadine)] magnesium oxide 0 mg PO QAM 06/29/20 06/29/20 History meloxicam [Mobic] 15 mg PO QAM 06/29/20 06/29/20 History metronidazole [MetroCream] 1 appln TOP DAILY 06/29/20 06/29/20 History mirabegron [Myrbetriq] 50 mg PO QAM 06/29/20 06/29/20 History montelukast [Singulair] 10 mg PO QPM 06/29/20 06/29/20 History oxybutynin chloride 5 mg PO QAM 06/29/20 06/29/20 History pantoprazole [Protonix] 40 mg PO QAM 06/29/20 06/29/20 History vitamin B complex [B 1 tab PO QAM 06/29/20 06/29/20 History Complex-Vitamin B12] Past Med/Surg History Medical History GERD (gastroesophageal reflux disease) (Acute) Graves disease (Acute) Hyperlipidemia (Acute) Hypomagnesemia (Acute) Moderate obstructive sleep apnea (Acute) Multinodular goiter Osteoporosis (Acute) Pulmonary nodules (Acute) Restless legs syndrome (Acute) Type 2 diabetes mellitus (Acute) Urinary urgency (Resolved) Vitamin D deficiency (Acute) Surgical History History of cholecystectomy History of corneal transplant Family History Father Asthma Heart disease Diabetes Hemangioma Glaucoma Mother Stroke Social History (Updated 06/29/20 @ 22:26 by Marii Quinn MD) Smoking Status: Former smoker Tobacco Type: Cigarettes Age Quit Using Tobacco: 51; Years Smoked: 20; Second Hand Exposure: No; Do You Dip or Chew Tobacco: No; Tobacco Cessation Education Requested by Patient: No Hx Alcohol Use: No Hx Substance Use: No Preferred Language: Yi Communication Ability: Effective Visual Impairment: No Limitations Hearing Ability: Normal Beliefs That Will Affect Care: None marital status: Current Living Situation: Spouse current occupational status: retired Other Information That Helps Us Care for You: No Feels Safe at Home: Yes Safety Concerns: Feels Safe At This Time Dental Care, Regularly: Yes Review of Systems Review of Systems: All systems reviewed & are unremarkable except as noted in HPI & below Physical Exam Constitutional: WD/WN, vitals as above Eyes: PERRL, conjunctivae normal, anicteric sclerae ENMT: external ear and nose normal, oropharynx normal Neck: trachea midline, no thyromegaly Respiratory: normal respiratory effort (On 5 L nasal cannula) and + cough (With deep inspiration); no labored breathing and not tachypneic Auscultation: + crackles (Mild at the bases); no rhonchi and no wheezes Cardiovascular: RRR, no murmur, no edema Chest (Breasts): Chest: normal inspection of chest Gastrointestinal (Abdomen): normal bowel sounds, soft, nontender, no hepatosplenomegaly Musculoskeletal: Extremities: extremities normal to inspection; no cyanosis and no clubbing Skin: no rashes, warm and dry Neurologic: moves all extremities and awake; no focal motor deficits Psychiatric: A+Ox3, euthymic affect Lymphatic: no lymphedema Results & Data Results & Data ([facility]) Vital Signs (Past 12 Hours) Vital Signs Temp Pulse Resp BP Pulse Ox 06/29/20 13:30 62 26 H 115/96 98 06/29/20 12:42 64 24 130/65 95 06/29/20 11:30 61 28 H 121/70 06/29/20 11:08 63 20 123/70 91 06/29/20 11:00 37.2 C 60 20 123/70 96 Laboratory Results 06/29/20 06/29/20 06/29/20 Range/Units 12:40 12:30 11:30 WBC (4.8-10.8) K/uL RBC (4.2-5.4) M/uL Hgb (12.0-16.0) g/dL Hct (37-47) % MCV (80-100) fL MCH (25-34) pg MCHC (32-36) g/dL RDW Std Deviation (36.4-46.3) fL RDW Coeff of Ambreen (11.5-14.5) % Plt Count (130-400) K/uL MPV (7.4-10.4) fL Immature Gran % (Auto) % Neut % (Auto) % Lymph % (Auto) % Bond % (Auto) % Eos % (Auto) % Baso % (Auto) % Neut # (Auto) (1.4-6.5) K/uL Lymph # (Auto) (1.2-3.4) K/uL Bond # (Auto) (0.11-0.59) K/uL Eos # (Auto) (0-0.5) K/uL Baso # (Auto) (0-0.2) K/uL Immature Gran # (Auto) (0.00-0.02) K/uL PT (9.0-12.0) Seconds INR (0.9-1.1) D-Dimer (0-500) ug/L FEU Sodium (136-145) mmol/L Potassium (3.5-5.1) mmol/L Chloride (98-107) mmol/L Carbon Dioxide (21-32) mmol/L Anion Gap (3-11) BUN (7-18) mg/dl Creatinine (0.6-1.2) mg/dl Est Cr Clr Drug Dosing ml/min Est GFR ( Amer) Est GFR (Non-Af Amer) BUN/Creatinine Ratio (10-20) Glucose (70-99) mg/dl Lactate 1.8 (0.4-2.0) mmol/L Calcium (8.5-10.1) mg/dl Ferritin (8-388) ng/ml Total Bilirubin (0.2-1) mg/dl AST (15-37) U/L ALT (12-78) U/L Alkaline Phosphatase (45-117) U/L Lactate Dehydrogenase 365 H (84-246) U/L Troponin I (0-0.045) ng/ml C-Reactive Protein (0-0.29) mg/dl Total Protein (6.4-8.2) gm/dl Albumin (3.4-5.0) gm/dl Globulin (2.5-4.0) gm/dl Albumin/Globulin Ratio (0.9-2) Lipase (73-393) U/L Procalcitonin (0-0.5) ng/ml Urine Color Yellow Urine Appearance Clear (Clear) Urine pH 5.5 (4.5-7.5) Ur Specific Adin 1.009 (1.000-1.030) Urine Protein Negative (Negative) Urine Glucose (UA) Negative (Negative) Urine Ketones Negative (Negative) Urine Blood Negative (Negative) Urine Nitrite Negative (Negative) Urine Bilirubin Negative (Negative) Urine Urobilinogen Negative (Negative) Ur Leukocyte Esterase 1+ H (Negative) Urine RBC 0-4 (0-4) /hpf Urine WBC 10-30 H (0-5) /hpf Ur Epithelial Cells 0-5 (0-5) /lpf Ur Renal Epithelial Cell 0-5 (0-5) /lpf Urine Bacteria 4+ H (Negative) 06/29/20 06/29/20 06/29/20 Range/Units 11:30 11:30 11:30 WBC (4.8-10.8) K/uL RBC (4.2-5.4) M/uL Hgb (12.0-16.0) g/dL Hct (37-47) % MCV (80-100) fL MCH (25-34) pg MCHC (32-36) g/dL RDW Std Deviation (36.4-46.3) fL RDW Coeff of Ambreen (11.5-14.5) % Plt Count (130-400) K/uL MPV (7.4-10.4) fL Immature Gran % (Auto) % Neut % (Auto) % Lymph % (Auto) % Bond % (Auto) % Eos % (Auto) % Baso % (Auto) % Neut # (Auto) (1.4-6.5) K/uL Lymph # (Auto) (1.2-3.4) K/uL Bond # (Auto) (0.11-0.59) K/uL Eos # (Auto) (0-0.5) K/uL Baso # (Auto) (0-0.2) K/uL Immature Gran # (Auto) (0.00-0.02) K/uL PT 10.5 (9.0-12.0) Seconds INR 1.0 (0.9-1.1) D-Dimer 570 H* (0-500) ug/L FEU Sodium 134 L (136-145) mmol/L Potassium 3.8 (3.5-5.1) mmol/L Chloride 103 (98-107) mmol/L Carbon Dioxide 24 (21-32) mmol/L Anion Gap 7.0 (3-11) BUN 23 H (7-18) mg/dl Creatinine 1.21 H (0.6-1.2) mg/dl Est Cr Clr Drug Dosing 41.0 ml/min Est GFR ( Amer) 51.4 Est GFR (Non-Af Amer) 44.4 BUN/Creatinine Ratio 18.8 (10-20) Glucose 109 H (70-99) mg/dl Lactate (0.4-2.0) mmol/L Calcium 9.6 (8.5-10.1) mg/dl Ferritin 385.2 (8-388) ng/ml Total Bilirubin 0.5 (0.2-1) mg/dl AST 64 H (15-37) U/L ALT 46 (12-78) U/L Alkaline Phosphatase 37 L (45-117) U/L Lactate Dehydrogenase (84-246) U/L Troponin I 0.283 H* (0-0.045) ng/ml C-Reactive Protein 16.40 H (0-0.29) mg/dl Total Protein 8.1 (6.4-8.2) gm/dl Albumin 3.1 L (3.4-5.0) gm/dl Globulin 5.0 H (2.5-4.0) gm/dl Albumin/Globulin Ratio 0.6 L (0.9-2) Lipase 149 (73-393) U/L Procalcitonin < 0.05 (0-0.5) ng/ml Urine Color Urine Appearance (Clear) Urine pH (4.5-7.5) Ur Specific Adin (1.000-1.030) Urine Protein (Negative) Urine Glucose (UA) (Negative) Urine Ketones (Negative) Urine Blood (Negative) Urine Nitrite (Negative) Urine Bilirubin (Negative) Urine Urobilinogen (Negative) Ur Leukocyte Esterase (Negative) Urine RBC (0-4) /hpf Urine WBC (0-5) /hpf Ur Epithelial Cells (0-5) /lpf Ur Renal Epithelial Cell (0-5) /lpf Urine Bacteria (Negative) 06/29/ Range/Units 11:30 WBC 7.41 (4.8-10.8) K/uL RBC 4.08 L (4.2-5.4) M/uL Hgb 12.4 (12.0-16.0) g/dL Hct 37.5 (37-47) % MCV 91.9 (80-100) fL MCH 30.4 (25-34) pg MCHC 33.1 (32-36) g/dL RDW Std Deviation 47.7 H (36.4-46.3) fL RDW Coeff of Ambreen 14.0 (11.5-14.5) % Plt Count 399 (130-400) K/uL MPV 10.1 (7.4-10.4) fL Immature Gran % (Auto) 0.4 % Neut % (Auto) 83.9 % Lymph % (Auto) 9.7 % Bond % (Auto) 5.5 % Eos % (Auto) 0.4 % Baso % (Auto) 0.1 % Neut # (Auto) 6.21 (1.4-6.5) K/uL Lymph # (Auto) 0.72 L (1.2-3.4) K/uL Bond # (Auto) 0.41 (0.11-0.59) K/uL Eos # (Auto) 0.03 (0-0.5) K/uL Baso # (Auto) 0.01 (0-0.2) K/uL Immature Gran # (Auto) 0.03 H (0.00-0.02) K/uL PT (9.0-12.0) Seconds INR (0.9-1.1) D-Dimer (0-500) ug/L FEU Sodium (136-145) mmol/L Potassium (3.5-5.1) mmol/L Chloride (98-107) mmol/L Carbon Dioxide (21-32) mmol/L Anion Gap (3-11) BUN (7-18) mg/dl Creatinine (0.6-1.2) mg/dl Est Cr Clr Drug Dosing ml/min Est GFR ( Amer) Est GFR (Non-Af Amer) BUN/Creatinine Ratio (10-20) Glucose (70-99) mg/dl Lactate (0.4-2.0) mmol/L Calcium (8.5-10.1) mg/dl Ferritin (8-388) ng/ml Total Bilirubin (0.2-1) mg/dl AST (15-37) U/L ALT (12-78) U/L Alkaline Phosphatase (45-117) U/L Lactate Dehydrogenase (84-246) U/L Troponin I (0-0.045) ng/ml C-Reactive Protein (0-0.29) mg/dl Total Protein (6.4-8.2) gm/dl Albumin (3.4-5.0) gm/dl Globulin (2.5-4.0) gm/dl Albumin/Globulin Ratio (0.9-2) Lipase (73-393) U/L Procalcitonin (0-0.5) ng/ml Urine Color Urine Appearance (Clear) Urine pH (4.5-7.5) Ur Specific Adin (1.000-1.030) Urine Protein (Negative) Urine Glucose (UA) (Negative) Urine Ketones (Negative) Urine Blood (Negative) Urine Nitrite (Negative) Urine Bilirubin (Negative) Urine Urobilinogen (Negative) Ur Leukocyte Esterase (Negative) Urine RBC (0-4) /hpf Urine WBC (0-5) /hpf Ur Epithelial Cells (0-5) /lpf Ur Renal Epithelial Cell (0-5) /lpf Urine Bacteria (Negative) Diagnostic Findings Chest x-ray image personally reviewed by me and agree with the following report: XR chest 1V portable HISTORY: 74 years-old Female sob acute shortness of breath COMPARISON: Chest and rib radiographs 11/28/2018 TECHNIQUE: Portable AP view of the chest FINDINGS: Cardiac silhouette is enlarged. Pulmonary vascular congestion with interstitial coarsening. Trace pleural effusions. There is no pneumothorax. Minimal bibasilar opacities. Degenerative changes of the shoulders and spine. IMPRESSION: 1. Cardiomegaly with pulmonary vascular congestion and bilateral reticular opacities suggestive of pulmonary edema. Multifocal pneumonitis could appear similarly. 2. Trace pleural effusions. ECG Additional Comments: ECG with normal sinus rhythm with left axis deviation, no ischemic changes Code Status & VTE Plan Code Status DNR/DNI VTE Prophylaxis Plan VTE Prophylaxis will be ordered: Yes PG Care Time/CCT Total # of Minutes Spent Total Time Spent with Patient: Total time spent is greater than 50% in coordination of care (as documented) at patient's floor/unit and/or counseling patient: Coding Level of Care Code 34544 Initial Inpt Care Lvl 3 Diagnoses COVID-19 U07.1 Hypoxia R09.02 Elevated troponin R79.89 Asthma J45.909 Anxiety F41.9 Type 2 diabetes mellitus E11.9 Moderate obstructive sleep apnea G47.33 Restless legs syndrome G25.81 Multinodular goiter E04.2 Allergic rhinitis J30.9 Depression F32.9 GERD (gastroesophageal reflux disease) K21.9 Hyperlipidemia E78.5 Osteoporosis M81.0 DVT prophylaxis Z29.9
[2020-06-29] MEDS: ENOXAPARIN 80 MG/0.8 ML SYR SQ SCH (14:43)
[2020-06-29] MEDS ORDERED: REMDESIVIR 200 mg: Day 1 IV ONE (16:00)
--- NOTE | 2020-06-29 16:18 | Electrocardiogram Report ---
Test Reason : Blood Pressure : / mmHG Vent. Rate : 061 BPM Atrial Rate : 061 BPM P-R Int : 154 ms QRS Dur : 076 ms QT Int : 396 ms P-R-T Axes : 038 -27 006 degrees QTc Int : 398 ms Poor data quality, interpretation may be adversely affected Normal sinus rhythm Left axis deviation Borderline ECG When compared with ECG of 01-NOV-2019 10:41, No significant change Confirmed by David Pryor ([id number]) on 06/29/2020 4:18:49 PM Referred By: REFERRED SELF Confirmed By:David Pryor
[2020-06-29] MEDS: dexAMETHasone 4 MG TAB PO SCH (17:15)
[2020-06-29] MEDS ORDERED: NSS 30mL Flush, Days 1-5 IV ONE ×2 (18:00→19:15)
[2020-06-29] MEDS ORDERED: CARBOHYDRATES FOR HYPOGLYCEMIA PO PRN (18:44)
[2020-06-29] MEDS ORDERED: ACETAMINOPHEN 500 MG TAB PO PRN (18:44)
[2020-06-29] MEDS ORDERED: ONDANSETRON INJ 2 MG/ML 2 ML VIAL IV PRN (18:44)
[2020-06-29] MEDS ORDERED: DEXTROSE 50% 50 ML SYRINGE IV PRN (18:44)
[2020-06-29] MEDS ORDERED: GLUCOSE 10 TABS/TUBE PO PRN (18:44)
[2020-06-29] MEDS ORDERED: GLUCOSE 40% GEL 15 GM TUBE PO PRN (18:44)
[2020-06-29] MEDS ORDERED: GLUCAGON FOR INJ 1 MG VIAL SQ PRN (18:44)
[2020-06-29] MEDS ORDERED: POLYETHYLENE (MIRALAX) 17 GM PACK PO PRN (18:44)
[2020-06-29] MEDS ORDERED: ACETAMINOPHEN 325 MG TAB PO PRN (18:44)
[2020-06-29] MEDS: ALBUTEROL HFA 8 GM INHALER INH SCH ×2 (19:51→20:20)
[2020-06-29] MEDS: INSULIN ASPART 100 UNITS/ML 3 ML PEN SC SCH ×2 (20:36→20:58)
[2020-06-29] MEDS: ATORVASTATIN 40 MG TAB PO SCH (20:58)
[2020-06-29] MEDS: MONTELUKAST SODIUM 10 MG TABLET PO SCH (20:59)
[2020-06-30] MEDS: FENOFIBRATE - ORDER AWAITING ACTION SCH ×3 (00:44→13:56)
[2020-06-30] MEDS: ENOXAPARIN 80 MG/0.8 ML SYR SQ SCH (04:16)
[2020-06-30 07:02] LABS: Basophils # (auto) 0.01 K/uL (0-0.2); Basophils % (auto) 0.2 %; Hematocrit (blood only) 35.8 % (37-47); Hemoglobin 11.7 g/dL (12.0-16.0); Immature Granulocytes # (auto) 0.02 K/uL (0.00-0.02); Immature Granulocytes % (auto) 0.3 %; Lymphocytes # (auto) 0.46 K/uL (1.2-3.4); Lymphocytes % (auto) 7.1 %; Mean Corpuscular Hemoglobin 29.7 pg (25-34); Mean Corpuscular Hgb Conc 32.7 g/dL (32-36); Mean Corpuscular Volume 90.9 fL (80-100); Mean Platelet Volume 9.4 fL (7.4-10.4); Monocytes # (auto) 0.24 K/uL (0.11-0.59); Monocytes % (auto) 3.7 %; Neutrophils # (auto) 5.74 K/uL (1.4-6.5); Neutrophils % (auto) 88.7 %; Platelet Count 428 K/uL (130-400); RDW Standard Deviation 47.1 fL (36.4-46.3); Red Blood Count 3.94 M/uL (4.2-5.4); White Blood Count 6.47 K/uL (4.8-10.8)
[2020-06-30 07:26] LABS: D Dimer 600 ug/L FEU (0-500)
[2020-06-30] MEDS: ALBUTEROL HFA 8 GM INHALER INH SCH ×4 (07:29→20:10)
[2020-06-30 07:32] LABS: Albumin Globulin Ratio 0.5 (0.9-2); Albumin Level 2.5 gm/dl (3.4-5.0); BUN Creatinine Ratio 22.3 (10-20); Bilirubin,Total 0.5 mg/dl (0.2-1); Calcium 9.1 mg/dl (8.5-10.1); Creatinine Clr Calc Pharmacy 54.5 ml/min; Est GFR (African American) 77.7; Globulin 4.9 gm/dl (2.5-4.0); Potassium 4.2 mmol/L (3.5-5.1); Total Protein 7.4 gm/dl (6.4-8.2)
[2020-06-30 07:37] LABS: C Reactive Protein 20.3 mg/dl (0-0.29); Ferritin 384.8 ng/ml (8-388)
[2020-06-30 08:03] LABS: Estimated Average Glucose 166 mg/dl; Hemoglobin A1C 7.4 % (4.5-5.6)
[2020-06-30] MEDS: UMECLIDINIUM/VILANTEROL 62.5/25MCG 7 PUFFS/INHALER INH SCH (08:05)
[2020-06-30] MEDS: FLUTICASONE FUROATE 100MCG 14 PUFFS/INHALER INH SCH (08:05)
[2020-06-30] MEDS: MAGNESIUM OXIDE 400 MG TAB PO SCH (08:07)
[2020-06-30] MEDS: OXYBUTYNIN CHLORIDE 5 MG TAB PO SCH (08:07)
[2020-06-30] MEDS: VITAMIN B COMPLEX TAB PO SCH (08:07)
[2020-06-30] MEDS: buPROPion HCl 75 MG TABLET PO SCH (08:07)
[2020-06-30] MEDS: MELOXICAM 7.5 MG TAB PO SCH (08:07)
[2020-06-30] MEDS: ESCITALOPRAM OXALATE 20 MG TAB PO SCH (08:07)
[2020-06-30] MEDS: PANTOprazole 40 MG TAB PO SCH (08:07)
[2020-06-30] MEDS: CHOLECALCIFEROL 1,000 UNITS 25 MCG TAB PO SCH (08:07)
[2020-06-30] MEDS: LORATADINE 10 MG TAB PO SCH (08:07)
[2020-06-30] MEDS: MIRABEGRON ER 25 MG TAB PO SCH (08:08)
--- NOTE | 2020-06-30 08:29 | Hospitalist Progress Note ---
Date of Service June 30, 2020 Assessment & Plan (1) COVID-19: Diagnosed with COVID-19 on 06/21 as an outpatient. Now here with development of acute respiratory failure with hypoxia. Markers of inflammation are modestly elevated and troponin is positive which may be a poor prognostic indicator Given that she is requiring 5 L nasal cannula with her respiratory failure, qualifies as having severe COVID -Dr Quinn discussed case with pulmonary service- started Remdesivir x5-day course-(this may not be as effective as she is at the seventh day of her illness) - dexamethasone 6 mg p.o. once daily x10-day course - supplemental O2 to keep pulse ox greater than 92%-she is okay with CPAP if needed or high flow nasal cannula, but does not want intubation at any point -Follow COVID labs to include CBC, CMP, CRP, LDH, ferritin, d-dimer -Tylenol as needed for fevers or headache (2) Hypoxia: acute reiratory failure with hypoxia, secondary to COVID Chest x-ray with bilateral diffuse pulmonary infiltrates, procalcitonin is negative-do not think she has bacterial pneumonia (3) Elevated troponin: Troponin mildly elevated at 0.28-> 0.178, she has no chest pain or history of CAD Likely secondary to hypoxia and demand ischemia plus consider myocardia inflamation from COVID ECG is without ischemic changes -Started on Lovenox full therapeutic dosing for now especially as patients with COVID are at increased risk for thrombotic events and she may be having an NSTEMI -Cannot get an echocardiogram as she is positive for COVID (4) Asthma: With a history of underlying mild intermittent asthma -Make her albuterol inhaler 2 puffs 4 times daily scheduled -Giving dexamethasone -Supplemental O2 -Continue home inhaled corticosteroid/LABA/LAMA (5) Anxiety: Continue home clonazepam, Lexapro, and Wellbutrin (6) Type 2 diabetes mellitus: hemoglobin A1c is in the diabetic range-7.4, typically only on metformin -Accu-Cheks q. before meals and at bedtime Insulin sliding scale - (7) Moderate obstructive sleep apnea: Ordered her CPAP for at nighttime-she is not clear if her setting at home- we will start with 8 cm H2O (8) Restless legs syndrome: Stable -Continue home clonazepam as needed (9) Multinodular goiter: Is not on thyroid hormone replacement at this point and is being monitored by PCP TSH in 03/2020 was normal at 2.23 (10) Allergic rhinitis: Continue Singulair (11) Depression: Continue Lexapro, Wellbutrin as above (12) GERD (gastroesophageal reflux disease): Continue PPI daily (13) Hyperlipidemia: Continue statin (14) Osteoporosis: Noted Continue vitamin D (15) DVT prophylaxis: Lovenox therapeutic dosing, SCDs Disposition-admit to PCU, expected least a 2 midnight stay Admission and Anticipated Discharge Date Admission Date: June 29, 2020 Subjective Patient was seen in airborne isolation room she says she is feeling better than yesterday she still feeling short of breath and has no taste or appetite. Patient denies further diarrhea. Patient is on 2 L of oxygen. She exhibited no coughing during my visit Review of Systems Review of Systems: Mild distress and fatigue no headache, blurry or double vision no speech or swallowing issues complains of loss of taste no chest pain, pressure or palpitations shortness of breath, complains of nonproductive cough no abdominal pain, nausea or vomiting, diarrhea or constipation no dysuria, hematuria or frequency no focal joint pain or swelling no back pain, CVA tenderness or radicular pain no bruising, bleeding or rashes no focal signs of weakness or numbness or altered sensation no complaints or anxiety or depression Physical Exam Physical Exam: The patient appeared well compensated Vital signs as documented. Oxygen supplemented with 2 L Per pulmonary exam she appeared with unlabored breathing talking in full sentences Neurologic exam is alert and oriented, no focal loss of strength or sensation Skin is without bruises or rashes Psychologically is without concerns for anxiety or depression Results & Data Results & Data ([facility]) Vital Signs (Past 12 Hours) Vital Signs Temp Pulse Resp BP Pulse Ox 06/30/20 07:30 61 16 83 L 06/30/20 04:26 97.5 F L 60 20 116/67 93 06/29/20 22:28 98.6 F 74 18 117/66 93 PG Care Time/CCT Total # of Minutes Spent Total Time Spent with Patient: Total time spent is greater than 50% in coordination of care (as documented) at patient's floor/unit and/or counseling patient: Coding Level of Care Code 42966 Subseq Hosp Care Lvl 3 Diagnoses COVID-19 U07.1 Hypoxia R09.02 Elevated troponin R79.89 Asthma J45.909 Anxiety F41.9 Type 2 diabetes mellitus E11.9 Moderate obstructive sleep apnea G47.33 Restless legs syndrome G25.81 Multinodular goiter E04.2 Allergic rhinitis J30.9 Depression F32.9 GERD (gastroesophageal reflux disease) K21.9 Hyperlipidemia E78.5 Osteoporosis M81.0 DVT prophylaxis Z29.9
[2020-06-30] MEDS: INSULIN ASPART 100 UNITS/ML 3 ML PEN SC SCH ×4 (08:42→21:14)
[2020-06-30] MEDS ORDERED: NON-FORMULARY MEDICATION (Fluticasone-Umeclidin-Vilanter [Trelegy Ellipta] 1 PUFFS) INH SCH (09:00)
--- NOTE | 2020-06-30 09:34 | XRay Report ---
XR chest 1V portable CLINICAL HISTORY: f/u PNA,COVID COMPARISON STUDY: 06/29/2020 FINDINGS: No significant change compared to the prior study. Bilateral interstitial infiltrative chandler ges are considered stable. Diaphragms are smooth. Costophrenic angles are sharp. Mild stable cardiome kai. IMPRESSION: Diffuse bilateral stable interstitial change. Mild stable cardiomegaly. ACT 112: Negative or not required by law. The above report was generated using voice recognition software. It may contain grammatical, syntax or spelling errors. Electronically signed by: Javy Salas M.D. 06/30/2020 9:32 AM
[2020-06-30] MEDS: dexAMETHasone 4 MG TAB PO SCH (11:20)
[2020-06-30] MEDS: ENOXAPARIN INJ 30 MG/0.3 ML SYR SQ SCH (17:23)
[2020-06-30] MEDS: REMDESIVIR 100mg: Days 2-5 IV SCH (17:23)
[2020-06-30] MEDS: NSS 30mL Flush, Days 1-5 IV SCH (18:28)
[2020-06-30] MEDS: MONTELUKAST SODIUM 10 MG TABLET PO SCH (20:58)
[2020-06-30] MEDS: ATORVASTATIN 40 MG TAB PO SCH (20:58)
[2020-07-01] MEDS: FENOFIBRATE - ORDER AWAITING ACTION SCH ×3 (01:19→16:44)
[2020-07-01] MEDS: ENOXAPARIN INJ 30 MG/0.3 ML SYR SQ SCH ×2 (05:45→17:13)
[2020-07-01 07:33] LABS: Creatinine Clr Calc Pharmacy 61.2 ml/min; Est GFR (African American) 90.2; Est GFR (Non-African American) 77.8
[2020-07-01] MEDS: ALBUTEROL HFA 8 GM INHALER INH SCH ×4 (07:39→19:32)
[2020-07-01] MEDS: OXYBUTYNIN CHLORIDE 5 MG TAB PO SCH (08:24)
[2020-07-01] MEDS: buPROPion HCl 75 MG TABLET PO SCH (08:24)
[2020-07-01] MEDS: MIRABEGRON ER 25 MG TAB PO SCH (08:24)
[2020-07-01] MEDS: MAGNESIUM OXIDE 400 MG TAB PO SCH (08:24)
[2020-07-01] MEDS: CHOLECALCIFEROL 1,000 UNITS 25 MCG TAB PO SCH (08:24)
[2020-07-01] MEDS: ESCITALOPRAM OXALATE 20 MG TAB PO SCH (08:24)
[2020-07-01] MEDS: LORATADINE 10 MG TAB PO SCH (08:24)
[2020-07-01] MEDS: MELOXICAM 7.5 MG TAB PO SCH (08:24)
[2020-07-01] MEDS: VITAMIN B COMPLEX TAB PO SCH (08:24)
[2020-07-01] MEDS: PANTOprazole 40 MG TAB PO SCH (08:24)
[2020-07-01] MEDS: FLUTICASONE FUROATE 100MCG 14 PUFFS/INHALER INH SCH (08:25)
[2020-07-01] MEDS: UMECLIDINIUM/VILANTEROL 62.5/25MCG 7 PUFFS/INHALER INH SCH (08:25)
[2020-07-01] MEDS: INSULIN ASPART 100 UNITS/ML 3 ML PEN SC SCH ×4 (09:12→21:17)
[2020-07-01] MEDS: dexAMETHasone 4 MG TAB PO SCH (11:56)
[2020-07-01] MEDS: clonazePAM 0.5 MG TAB PO PRN ×2 (11:56→21:49)
[2020-07-01] MEDS: REMDESIVIR 100mg: Days 2-5 IV SCH (17:14)
[2020-07-01] MEDS: NSS 30mL Flush, Days 1-5 IV SCH (17:15)
--- NOTE | 2020-07-01 19:06 | Hospitalist Progress Note ---
Date of Service July 01, 2020 Assessment & Plan (1) COVID-19: Diagnosed with COVID-19 on 06/21 as an outpatient. Now here with development of acute respiratory failure with hypoxia. Markers of inflammation were modestly elevated and troponin was positive she is requiring 4L nasal cannula with her respiratory failure, qualifies as having severe COVID -Dr Quinn discussed case with pulmonary service- started Remdesivir - dexamethasone 6 mg p.o. once daily x10-day course - supplemental O2 to keep pulse ox greater than 92%-she is okay with CPAP if needed or high flow nasal cannula, but does not want intubation at any point -Tylenol as needed for fevers or headache (2) Hypoxia: acute reiratory failure with hypoxia, secondary to COVID Chest x-ray with bilateral diffuse pulmonary infiltrates, procalcitonin is negative- (3) Elevated troponin: Troponin mildly elevated at 0.28-> 0.178, she has no chest pain or history of CAD Likely secondary to hypoxia and demand ischemia plus consider myocardia inflamation from COVID ECG is without ischemic changes -no suspect of nstemi as no trend of troponin, reduced lovenox to bid dose -Cannot get an echocardiogram as she is positive for COVID (4) Asthma: With a history of underlying mild intermittent asthma -Make her albuterol inhaler 2 puffs 4 times daily scheduled -Giving dexamethasone -Supplemental O2 -Continue home inhaled corticosteroid/LABA/LAMA (5) Anxiety: Continue home clonazepam, Lexapro, and Wellbutrin (6) Type 2 diabetes mellitus: hemoglobin A1c is in the diabetic range-7.4, typically only on metformin -Accu-Cheks q. before meals and at bedtime Insulin sliding scale - (7) Moderate obstructive sleep apnea: Ordered her CPAP for at nighttime (8) Restless legs syndrome: Stable -Continue home clonazepam as needed (9) Multinodular goiter: Is not on thyroid hormone replacement at this point and is being monitored by PCP TSH in 03/2020 was normal at 2.23 (10) Allergic rhinitis: Continue Singulair (11) Depression: Continue Lexapro, Wellbutrin as above (12) GERD (gastroesophageal reflux disease): Continue PPI daily (13) Hyperlipidemia: Continue statin (14) Osteoporosis: Noted Continue vitamin D (15) DVT prophylaxis: Lovenox therapeutic dosing, SCDs Disposition-admit to PCU,airborne isolation Admission and Anticipated Discharge Date Admission Date: June 29, 2020 Subjective Patient remains in airborne isolation room she says she continues to feel improved. she remains short of breath and has some return of her taste. Patient denies further diarrhea. Patient is on 4 L of oxygen. She exhibited no coughing during my visit Review of Systems Review of Systems: Mild distress and fatigue no headache, blurry or double vision no speech or swallowing issues complains of loss of taste no chest pain, pressure or palpitations shortness of breath, complains of nonproductive cough no abdominal pain, nausea or vomiting, diarrhea or constipation no dysuria, hematuria or frequency no focal joint pain or swelling no back pain, CVA tenderness or radicular pain no bruising, bleeding or rashes no focal signs of weakness or numbness or altered sensation no complaints or anxiety or depression Physical Exam Physical Exam: The patient appeared well compensated Vital signs as documented. Oxygen supplemented with 2 L Per pulmonary exam she appeared with unlabored breathing talking in full sentences right lung has some rhonchi, left is clear cardiac is regular Neurologic exam is alert and oriented, no focal loss of strength or sensation Skin is without bruises or rashes Psychologically is without concerns for anxiety or depression Results & Data Results & Data ([facility]) Vital Signs (Past 12 Hours) Vital Signs Temp Pulse Resp BP Pulse Ox 07/01/20 16:47 98.8 F 70 14 154/79 H 94 07/01/20 15:29 76 18 94 07/01/20 11:54 98.1 F 65 14 155/78 H 96 07/01/20 11:01 67 18 96 07/01/20 08:32 97.7 F 71 14 131/73 95 07/01/20 07:39 70 18 94 PG Care Time/CCT Total # of Minutes Spent Total Time Spent with Patient: Total time spent is greater than 50% in coordination of care (as documented) at patient's floor/unit and/or counseling patient: Coding Level of Care Code 77354 Subseq Hosp Care Lvl 3 Diagnoses COVID-19 U07.1 Hypoxia R09.02 Elevated troponin R79.89 Asthma J45.909 Anxiety F41.9 Type 2 diabetes mellitus E11.9 Moderate obstructive sleep apnea G47.33 Restless legs syndrome G25.81 Multinodular goiter E04.2 Allergic rhinitis J30.9 Depression F32.9 GERD (gastroesophageal reflux disease) K21.9 Hyperlipidemia E78.5 Osteoporosis M81.0 DVT prophylaxis Z29.9
[2020-07-01] MEDS: MONTELUKAST SODIUM 10 MG TABLET PO SCH (20:59)
[2020-07-01] MEDS: ATORVASTATIN 40 MG TAB PO SCH (20:59)
[2020-07-02] MEDS: FENOFIBRATE - ORDER AWAITING ACTION SCH ×3 (01:37→16:06)
[2020-07-02] MEDS ORDERED: METOPROLOL TARTRATE 1 MG/ML VIAL IV STA ×3 (03:30→03:38)
[2020-07-02] MEDS ORDERED: METOPROLOL TARTRATE 1 MG/ML VIAL IV ONE ×2 (03:32→03:38)
[2020-07-02] MEDS ORDERED: dilTIAZem HCl 5 MG/ML 5 ML VIAL IV STA ×2 (03:49→04:14)
[2020-07-02] MEDS ORDERED: dilTIAZem HCl 5 MG/ML 5 ML VIAL IV ONE (03:54)
[2020-07-02] MEDS ORDERED: dilTIAZem HCL 30 MG TAB PO ONE ×2 (03:55→10:00)
--- NOTE | 2020-07-02 04:55 | Communication Note ---
Date of Service: July 02, 2020 Paged by RN about pt going into Afib overnight around 0330. HR 150s-170s, BP 112/78. Confirmed by EKG. Per chart review this appears to be new onset Afib. IV Lopressor q5min x3 was administered with HR improvement into 130s. IV Diltiazem 10 mg + PO Diltiazem 30mg administered next with an additional IV 10 mg given 15 min later with HR improvement into 90s, rate controlled but still in Afib. Good BP maintained throughout. Pt not on AC. CHADS-VASC calculated at 3pts. HAS-BLED calculated at 1pt for age>65. Decision made to start AC with Lovenox SQ 1mg/kg. Above was discussed with attending, Dr. Hussein. Will continue to monitor overnight. Resident Activity Tracking Resident Involvement: Resident Care Provided Care Provided: Adult Hospital Medicine
[2020-07-02] MEDS: ENOXAPARIN 80 MG/0.8 ML SYR SQ SCH ×2 (05:12→17:47)
[2020-07-02] MEDS: ALBUTEROL HFA 8 GM INHALER INH SCH ×4 (07:12→20:07)
--- NOTE | 2020-07-02 07:41 | Hospitalist Progress Note ---
Date of Service July 02, 2020 Assessment & Plan (1) Atrial fibrillation: pt developed new onset afib overnight early in am 07/02, she was given metoprolol and then diltiazem with good rate control but not return to sinus rhythm, did convert after po metoprolol tartrate and check echo ( once cpovid is treated) and troponin, initially did have minor troponin elevation but was felt secondary to covid will increase metopolol dose in the pm of 07/02 (2) COVID-19: Diagnosed with COVID-19 on 06/21 as an outpatient. Now here with development of acute respiratory failure with hypoxia. Markers of inflammation were modestly elevated and troponin was positive she is requiring 3L nasal cannula with her respiratory failure, qualifies as having severe COVID -Dr Quinn discussed case with pulmonary service- started Remdesivir - dexamethasone 6 mg p.o. once daily x10-day course - supplemental O2 to keep pulse ox greater than 92%-she is okay with CPAP if needed or high flow nasal cannula, but does not want intubation at any point -Tylenol as needed for fevers or headache (3) Hypoxia: acute reiratory failure with hypoxia, secondary to COVID Chest x-ray with bilateral diffuse pulmonary infiltrates, procalcitonin was negative- (4) Elevated troponin: Troponin mildly elevated at 0.28-> 0.178, she has no chest pain or history of CAD Likely secondary to hypoxia and demand ischemia plus consider myocardia inflamation from COVID ECG was without ischemic changes -no suspect of nstemi as no trend of troponin, reduced lovenox to bid dose -Cannot get an echocardiogram as she is positive for COVID (5) Asthma: With a history of underlying mild intermittent asthma -Make her albuterol inhaler 2 puffs 4 times daily scheduled -Giving dexamethasone -Supplemental O2 -Continue home inhaled corticosteroid/LABA/LAMA (6) Anxiety: Continue home clonazepam, Lexapro, and Wellbutrin (7) Type 2 diabetes mellitus: hemoglobin A1c is in the diabetic range-7.4, typically only on metformin -Accu-Cheks q. before meals and at bedtime Insulin sliding scale - (8) Moderate obstructive sleep apnea: Ordered her CPAP for at nighttime (9) Restless legs syndrome: Stable -Continue home clonazepam as needed (10) Multinodular goiter: Is not on thyroid hormone replacement at this point and is being monitored by PCP TSH in 03/2020 was normal at 2.23 (11) Allergic rhinitis: Continue Singulair (12) Depression: Continue Lexapro, Wellbutrin as above (13) GERD (gastroesophageal reflux disease): Continue PPI daily (14) Hyperlipidemia: Continue statin (15) Osteoporosis: Noted Continue vitamin D (16) DVT prophylaxis: Lovenox therapeutic dosing, SCDs Disposition-admit to PCU,airborne isolation Admission and Anticipated Discharge Date Admission Date: June 29, 2020 Subjective Patient remains in airborne isolation room she says she continues to feel improved. she developed afib rvr overnight she was without distress, she did have 5 mg metoprolol iv x 3 without success then diltiazem bolus' and was given metoprolol tartrate 12.5 mg po due to lower blood pressure and eventually converted to nsr mid morning, she has been bradycardic since Review of Systems Review of Systems: Mild distress and fatigue no headache, blurry or double vision no speech or swallowing issues complains of loss of taste no chest pain, pressure or sensation of palpitations shortness of breath, complains of nonproductive cough no abdominal pain, nausea or vomiting, diarrhea or constipation no dysuria, hematuria or frequency no focal joint pain or swelling no back pain, CVA tenderness or radicular pain no bruising, bleeding or rashes no focal signs of weakness or numbness or altered sensation no complaints or anxiety or depression Physical Exam Physical Exam: The patient appeared well compensated Vital signs as documented. Oxygen supplemented with 2 L Per pulmonary exam she appeared with unlabored breathing talking in full sentences right lung has some rhonchi, left is clear cardiac is regular Neurologic exam is alert and oriented, no focal loss of strength or sensation Skin is without bruises or rashes Psychologically is without concerns for anxiety or depression Results & Data Results & Data ([facility]) Vital Signs (Past 12 Hours) Vital Signs Temp Pulse Pulse Resp BP BP Pulse Ox 07/02/20 04:23 95 H 20 102/62 91 07/02/20 04:11 113 H 20 112/73 91 07/02/20 04:05 97 H 20 111/69 91 07/02/20 03:53 144 H 106/55 L 90 07/02/20 03:50 140 H 109/68 07/02/20 03:45 138 H 109/68 07/02/20 03:36 155 H 112/78 07/02/20 03:19 98.4 F 134 H 20 115/58 L 91 07/02/20 03:11 62 16 94 07/02/20 00:32 97.3 F L 57 L 18 117/57 L 93 07/01/20 22:00 64 16 93 07/01/20 19:42 98.4 F 69 20 158/74 H 92 PG Care Time/CCT Total # of Minutes Spent Total Time Spent with Patient: Total time spent is greater than 50% in coordina tion of care (as documented) at patient's floor/unit and/or counseling patient: Coding Level of Care Code 56661 Subseq Hosp Care Lvl 3 Diagnoses Atrial fibrillation I48.91 COVID-19 U07.1 Hypoxia R09.02 Elevated troponin R79.89 Asthma J45.909 Anxiety F41.9 Type 2 diabetes mellitus E11.9 Moderate obstructive sleep apnea G47.33 Restless legs syndrome G25.81 Multinodular goiter E04.2 Allergic rhinitis J30.9 Depression F32.9 GERD (gastroesophageal reflux disease) K21.9 Hyperlipidemia E78.5 Osteoporosis M81.0 DVT prophylaxis Z29.9
[2020-07-02] MEDS: UMECLIDINIUM/VILANTEROL 62.5/25MCG 7 PUFFS/INHALER INH SCH (08:17)
[2020-07-02] MEDS: FLUTICASONE FUROATE 100MCG 14 PUFFS/INHALER INH SCH (08:18)
[2020-07-02] MEDS: OXYBUTYNIN CHLORIDE 5 MG TAB PO SCH (08:19)
[2020-07-02] MEDS: dexAMETHasone 4 MG TAB PO SCH (08:19)
[2020-07-02] MEDS: ESCITALOPRAM OXALATE 20 MG TAB PO SCH (08:19)
[2020-07-02] MEDS: LORATADINE 10 MG TAB PO SCH (08:19)
[2020-07-02] MEDS: VITAMIN B COMPLEX TAB PO SCH (08:20)
[2020-07-02] MEDS: MIRABEGRON ER 25 MG TAB PO SCH (08:20)
[2020-07-02] MEDS: MAGNESIUM OXIDE 400 MG TAB PO SCH (08:20)
[2020-07-02] MEDS: PANTOprazole 40 MG TAB PO SCH (08:20)
[2020-07-02] MEDS: MELOXICAM 7.5 MG TAB PO SCH (08:20)
[2020-07-02] MEDS: CHOLECALCIFEROL 1,000 UNITS 25 MCG TAB PO SCH (08:21)
[2020-07-02] MEDS: buPROPion HCl 75 MG TABLET PO SCH (08:21)
[2020-07-02 08:43] LABS: Albumin Level 2.7 gm/dl (3.4-5.0); BUN Creatinine Ratio 22.3 (10-20); Calcium 9.5 mg/dl (8.5-10.1); Creatinine Clr Calc Pharmacy 45.8 ml/min; Est GFR (African American) 63.2; Est GFR (Non-African American) 54.5; Magnesium 1.9 mg/dl (1.8-2.4); Potassium 4.5 mmol/L (3.5-5.1)
[2020-07-02 08:46] LABS: Albumin Globulin Ratio 0.6 (0.9-2); Bilirubin,Total 0.4 mg/dl (0.2-1); Globulin 4.9 gm/dl (2.5-4.0); Total Protein 7.6 gm/dl (6.4-8.2)
[2020-07-02 08:52] LABS: Echinocytes 1+; Hematocrit (blood only) 37.5 % (37-47); Hemoglobin 12.3 g/dL (12.0-16.0); Immature Granulocytes # (auto) 0.05 K/uL (0.00-0.02); Immature Granulocytes % (auto) 0.4 %; Lymphocytes # (auto) 1.06 K/uL (1.2-3.4); Lymphocytes % (auto) 7.9 %; Mean Corpuscular Hemoglobin 30.1 pg (25-34); Mean Corpuscular Hgb Conc 32.8 g/dL (32-36); Mean Corpuscular Volume 91.7 fL (80-100); Mean Platelet Volume 9.7 fL (7.4-10.4); Monocytes # (auto) 0.67 K/uL (0.11-0.59); Neutrophils # (auto) 11.62 K/uL (1.4-6.5); Neutrophils % (auto) 86.7 %; Ovalocytes 1+; Platelet Count 663 K/uL (130-400); RDW Coefficient of Variation 14.1 % (11.5-14.5); RDW Standard Deviation 47.5 fL (36.4-46.3); Red Blood Count 4.09 M/uL (4.2-5.4)
[2020-07-02] MEDS ORDERED: METOPROLOL TARTRATE 25 MG TAB PO SCH (09:00)
[2020-07-02] MEDS: INSULIN ASPART 100 UNITS/ML 3 ML PEN SC SCH ×4 (09:14→20:16)
--- NOTE | 2020-07-02 13:24 | Electrocardiogram Report ---
Test Reason : Blood Pressure : / mmHG Vent. Rate : 163 BPM Atrial Rate : 174 BPM P-R Int : 000 ms QRS Dur : 074 ms QT Int : 270 ms P-R-T Axes : 000 -42 191 degrees QTc Int : 444 ms Atrial fibrillation with rapid ventricular response with premature ventricular or aberrantly conducte d complexes Left axis deviation Abnormal ECG When compared with ECG of 29-JUN-2020 11:04, Significant changes have occurred Confirmed by Lisandro Gallo ([id number]) on 07/02/2020 1:24:17 PM Referred By: REFERRED SELF Confirmed By:Lisandro Gallo
--- NOTE | 2020-07-02 13:24 | Electrocardiogram Report ---
Test Reason : Blood Pressure : / mmHG Vent. Rate : 109 BPM Atrial Rate : 131 BPM P-R Int : 000 ms QRS Dur : 072 ms QT Int : 350 ms P-R-T Axes : 000 -28 -16 degrees QTc Int : 471 ms Atrial fibrillation with rapid ventricular response with premature ventricular or aberrantly conducte d complexes Nonspecific ST abnormality Abnormal ECG When compared with ECG of 02-JUL-2020 03:14, (unconfirmed) Vent. rate has decreased BY [address] less depressed in Lateral leads T wave inversion no longer evident in Anterolateral leads Confirmed by Lisandro Gallo ([id number]) on 07/02/2020 1:24:29 PM Referred By: REFERRED SELF Confirmed By:Lisandro Gallo
[2020-07-02] MEDS: REMDESIVIR 100mg: Days 2-5 IV SCH (17:48)
[2020-07-02] MEDS: NSS 30mL Flush, Days 1-5 IV SCH (19:55)
[2020-07-02] MEDS: METOPROLOL TARTRATE 25 MG TAB PO SCH (19:56)
[2020-07-02] MEDS: MONTELUKAST SODIUM 10 MG TABLET PO SCH (19:57)
[2020-07-02] MEDS: ATORVASTATIN 40 MG TAB PO SCH (19:57)
[2020-07-02] MEDS: clonazePAM 0.5 MG TAB PO PRN (20:53)
[2020-07-03] MEDS: FENOFIBRATE - ORDER AWAITING ACTION SCH (01:04)
[2020-07-03] MEDS: ENOXAPARIN 80 MG/0.8 ML SYR SQ SCH ×2 (05:33→17:08)
[2020-07-03] MEDS: ALBUTEROL HFA 8 GM INHALER INH SCH (07:20)
[2020-07-03] MEDS: FLUTICASONE FUROATE 100MCG 14 PUFFS/INHALER INH SCH (07:56)
[2020-07-03] MEDS: PANTOprazole 40 MG TAB PO SCH (07:57)
[2020-07-03] MEDS: UMECLIDINIUM/VILANTEROL 62.5/25MCG 7 PUFFS/INHALER INH SCH (07:57)
[2020-07-03] MEDS: MELOXICAM 7.5 MG TAB PO SCH (07:58)
[2020-07-03] MEDS: dexAMETHasone 4 MG TAB PO SCH (07:58)
[2020-07-03] MEDS: LORATADINE 10 MG TAB PO SCH (07:58)
[2020-07-03] MEDS: MAGNESIUM OXIDE 400 MG TAB PO SCH (07:58)
[2020-07-03] MEDS: CHOLECALCIFEROL 1,000 UNITS 25 MCG TAB PO SCH (07:58)
[2020-07-03] MEDS: METOPROLOL TARTRATE 25 MG TAB PO SCH ×2 (07:59→20:23)
[2020-07-03] MEDS: MIRABEGRON ER 25 MG TAB PO SCH (07:59)
[2020-07-03] MEDS: buPROPion HCl 75 MG TABLET PO SCH (07:59)
[2020-07-03] MEDS: VITAMIN B COMPLEX TAB PO SCH (07:59)
[2020-07-03] MEDS: OXYBUTYNIN CHLORIDE 5 MG TAB PO SCH (07:59)
[2020-07-03] MEDS: ESCITALOPRAM OXALATE 20 MG TAB PO SCH (07:59)
[2020-07-03 08:24] LABS: Alanine Aminotransferase 44 U/L (12-78); Aspartate Aminotransferase 35 U/L (15-37)
[2020-07-03] MEDS: INSULIN ASPART 100 UNITS/ML 3 ML PEN SC SCH ×4 (09:46→20:56)
[2020-07-03] MEDS ORDERED: ALBUTEROL HFA 8 GM INHALER INH PRN (10:10)
--- NOTE | 2020-07-03 15:46 | Hospitalist Progress Note ---
Date of Service July 03, 2020 Assessment & Plan (1) COVID-19: Diagnosed with COVID-19 on 06/21 as an outpatient. Now here with development of acute respiratory failure with hypoxia. Markers of inflammation were modestly elevated and troponin was positive she was requiring 4L nasal cannula with her respiratory failure, and qualified as having severe COVID -Dr Quinn discussed case with pulmonary service- started Remdesivir last dose 07/03/20 at 1759 - dexamethasone 6 mg p.o. once daily x10-day course last day 07/08/20 - supplemental O2 to keep pulse ox greater than 92%, I did a trial of room air oxygen while I visited 07/03 and she was no lower than 92% on room air -she typically wears CPAP at night -Tylenol as needed for fevers or headache (2) Atrial fibrillation: pt developed new onset afib overnight early in am 07/02, she was given meto prolol and then diltiazem with good rate control but not return to sinus rhythm, did convert after po metoprolol tartrate , initially did have minor troponin elevation but was felt secondary to covid given bradycardia will decrease metoprolol to 12.5 bid (3) Hypoxia: resolved acute respiratory failure with hypoxia, secondary to COVID Chest x-ray with bilateral diffuse pulmonary infiltrates, procalcitonin was negative- (4) Elevated troponin: Troponin mildly elevated at 0.28-> 0.178, she has no chest pain or history of CAD Likely secondary to hypoxia and demand ischemia plus consider myocardia inflamation from COVID ECG was without ischemic changes -no suspect of nstemi as no trend of troponin, reduced lovenox to bid dose -Cannot get an echocardiogram as she is positive for COVID (5) Asthma: With a history of underlying mild intermittent asthma -Make her albuterol inhaler 2 puffs 4 times daily scheduled -Giving dexamethasone complete 10 day course -Supplemental O2 -Continue home inhaled corticosteroid/LABA/LAMA (6) Anxiety: Continue home clonazepam, Lexapro, and Wellbutrin (7) Type 2 diabetes mellitus: hemoglobin A1c is in the diabetic range-7.4, typically only on metformin -Accu-Cheks q. before meals and at bedtime Insulin sliding scale - (8) Moderate obstructive sleep apnea: Ordered her CPAP for at nighttime (9) Restless legs syndrome: Stable -Continue home clonazepam as needed (10) Multinodular goiter: Is not on thyroid hormone replacement at this point and is being monitored by PCP TSH in 03/2020 was normal at 2.23 (11) Allergic rhinitis: Continue Singulair (12) Depression: Continue Lexapro, Wellbutrin as above (13) GERD (gastroesophageal reflux disease): Continue PPI daily (14) Hyperlipidemia: Continue statin (15) Osteoporosis: Noted Continue vitamin D (16) DVT prophylaxis: Lovenox , SCDs Disposition-admit to PCU,airborne isolation Admission and Anticipated Discharge Date Admission Date: June 29, 2020 Subjective Patient remains in airborne isolation room she says she continues to feel improved. she developed afib rvr overnight 07/01-, she was without distress, she did have 5 mg metoprolol iv x 3 without success then diltiazem bolus' and was given metoprolol tartrate 12.5 mg po due to lower blood pressure and eventually converted to nsr mid morning of 07/02, she has been bradycardic since, will reduce dose of metoprolol 07/03 Review of Systems Review of Systems: Mild distress and fatigue no headache, blurry or double vision no speech or swallowing issues complains of loss of taste no chest pain, pressure or sensation of palpitations shortness of breath, continues with nonproductive cough no abdominal pain, nausea or vomiting, diarrhea or constipation no dysuria, hematuria or frequency no focal joint pain or swelling no back pain, CVA tenderness or radicular pain no bruising, bleeding or rashes no focal signs of weakness or numbness or altered sensation no complaints or anxiety or depression Physical Exam Physical Exam: The patient appeared well compensated Vital signs as documented. Oxygen supplemented with 2 L Per pulmonary exam she appeared with unlabored breathing talking in full sentences right lung continues with some rhonchi, left is clear cardiac is regular Neurologic exam is alert and oriented, no focal loss of strength or sensation Skin is without bruises or rashes Psychologically is without concerns for anxiety or depression Results & Data Results & Data ([facility]) Vital Signs (Past 12 Hours) Vital Signs Temp Pulse Pulse Resp BP Pulse Ox 07/03/20 15:24 99.0 F 67 20 150/70 H 90 07/03/20 12:14 98.1 F 58 L 18 147/76 H 94 07/03/20 08:00 98.2 F 56 L 18 134/67 96 07/03/20 07:21 53 L 20 95 07/03/20 04:00 97.5 F L 65 18 129/78 96 PG Care Time/CCT Total # of Minutes Spent Total Time Spent with Patient: Total time spent is greater than 50% in coordination of care (as documented) at patient's floor/unit and/or counseling patient: Coding Level of Care Code 96780 Subseq Hosp Care Lvl 3 Diagnoses COVID-19 U07.1 Atrial fibrillation I48.91 Hypoxia R09.02 Elevated troponin R79.89 Asthma J45.909 Anxiety F41.9 Type 2 diabetes mellitus E11.9 Moderate obstructive sleep apnea G47.33 Restless legs syndrome G25.81 Multinodular goiter E04.2 Allergic rhinitis J30.9 Depression F32.9 GERD (gastroesophageal reflux disease) K21.9 Hyperlipidemia E78.5 Osteoporosis M81.0 DVT prophylaxis Z29.9
[2020-07-03] MEDS: REMDESIVIR 100mg: Days 2-5 IV SCH ×2 (17:07→17:40)
[2020-07-03] MEDS: NSS 30mL Flush, Days 1-5 IV SCH (18:45)
[2020-07-03] MEDS: ATORVASTATIN 40 MG TAB PO SCH (20:23)
[2020-07-03] MEDS: clonazePAM 0.5 MG TAB PO PRN (20:24)
[2020-07-03] MEDS: MONTELUKAST SODIUM 10 MG TABLET PO SCH (20:26)
[2020-07-04] MEDS: FENOFIBRATE - ORDER AWAITING ACTION SCH ×5 (02:40→23:51)
[2020-07-04] MEDS: ENOXAPARIN 80 MG/0.8 ML SYR SQ SCH ×2 (05:06→20:18)
[2020-07-04] MEDS ORDERED: dilTIAZem HCl 5 MG/ML 5 ML VIAL IV STA (05:22)
[2020-07-04] MEDS ORDERED: dilTIAZem HCL 30 MG TAB PO ONE (05:23)
[2020-07-04] MEDS ORDERED: dilTIAZem HCl 5 MG/ML 5 ML VIAL IV ONE (05:25)
[2020-07-04 07:05] LABS: Alanine Aminotransferase 41 U/L (12-78); Aspartate Aminotransferase 30 U/L (15-37)
[2020-07-04] MEDS: FLUTICASONE FUROATE 100MCG 14 PUFFS/INHALER INH SCH (08:13)
[2020-07-04] MEDS: UMECLIDINIUM/VILANTEROL 62.5/25MCG 7 PUFFS/INHALER INH SCH (08:13)
[2020-07-04] MEDS: dexAMETHasone 4 MG TAB PO SCH (08:14)
[2020-07-04] MEDS: buPROPion HCl 75 MG TABLET PO SCH (08:14)
[2020-07-04] MEDS: ESCITALOPRAM OXALATE 20 MG TAB PO SCH (08:14)
[2020-07-04] MEDS: MIRABEGRON ER 25 MG TAB PO SCH (08:14)
[2020-07-04] MEDS: LORATADINE 10 MG TAB PO SCH (08:15)
[2020-07-04] MEDS: METOPROLOL TARTRATE 25 MG TAB PO SCH ×2 (08:15→20:19)
[2020-07-04] MEDS: MELOXICAM 7.5 MG TAB PO SCH (08:15)
[2020-07-04] MEDS: VITAMIN B COMPLEX TAB PO SCH (08:15)
[2020-07-04] MEDS: PANTOprazole 40 MG TAB PO SCH (08:15)
[2020-07-04] MEDS: MAGNESIUM OXIDE 400 MG TAB PO SCH (08:15)
[2020-07-04] MEDS: OXYBUTYNIN CHLORIDE 5 MG TAB PO SCH (08:15)
[2020-07-04] MEDS: CHOLECALCIFEROL 1,000 UNITS 25 MCG TAB PO SCH (08:16)
[2020-07-04] MEDS: INSULIN ASPART 100 UNITS/ML 3 ML PEN SC SCH ×4 (09:13→20:31)
[2020-07-04 09:24] LABS: BUN Creatinine Ratio 27.4 (10-20); Creatinine Clr Calc Pharmacy 56.1 ml/min; Est GFR (African American) 81.1; Magnesium 1.8 mg/dl (1.8-2.4); Potassium 4.4 mmol/L (3.5-5.1)
[2020-07-04] MEDS ORDERED: MAGNESIUM SULFATE / D5W 1 GM/100 ML BAG IV ONE (10:45)
--- NOTE | 2020-07-04 12:27 | Hospitalist Progress Note ---
Date of Service July 04, 2020 Assessment & Plan (1) COVID-19: Diagnosed with COVID-19 on 06/21 as an outpatient. Now here with development of acute respiratory failure with hypoxia. Markers of inflammation were modestly elevated and troponin was positive she was requiring 4L nasal cannula with her respiratory failure, and qualified as having severe COVID -Dr Quinn discussed case with pulmonary service- has now completed a 5 day course of Remdesivir - continue dexamethasone 6 mg p.o. once daily x10-day course last day 07/08/20 -is now weaned off O2 to RA and much improved, remains afebrile, has good appetite, no N/V/D, surinder po Overall improved (2) Atrial fibrillation: Pt developed new onset afib overnight early in am 07/02, she was given metoprolol and then diltiazem with good rate control and did convert after po metoprolol tartrate initially did have minor troponin elevation but was felt secondary to covid Then, had another 3-4 hours of Rapid Afib in early AM 07/04 with rates 120-200 bpm. Only symptom was chest burning but remained stable. Converted spontaneously back to 50bpm -is currently on metoprolol 25mg po bid -consulted Cardiology-appreciate recs---> Tachy-mary syndrome, start digoxin, continue same metoprolol, may need pacemaker this admission if continues to have paroxysms of A. fib-otherwise, may need one at some point in the future -Continue to monitor on telemetry -Eventually needs an echocardiogram to check for cardiomyopathy, but her COVID- 19 precludes that at this time -Continue therapeutic Lovenox while inpatient in case of need for pacemaker, but her co-pay for Eliquis as an outpatient would be $0 as per therapeutic case manager-patient is agreeable to starting Eliquis as opposed to warfarin (3) Hypoxia: resolved acute respiratory failure with hypoxia, secondary to COVID Chest x-ray with bilateral diffuse pulmonary infiltrates, procalcitonin was negative (4) Elevated troponin: Troponin mildly elevated at 0.28-> 0.178, she has no chest pain or history of CAD Likely secondary to hypoxia and demand ischemia plus consider myocardia inflamation from COVID ECG was without ischemic changes -no suspect of nstemi as no trend of troponin -Cannot get an echocardiogram as she is positive for COVID (5) Asthma: With a history of underlying mild intermittent asthma -Continue albuterol inhaler 2 puffs 4 times daily scheduled -Giving dexamethasone complete 10 day course -Continue home inhaled corticosteroid/LABA/LAMA (6) Anxiety: Continue home clonazepam, Lexapro, and Wellbutrin (7) Type 2 diabetes mellitus: hemoglobin A1c is in the diabetic range-7.4, typically only on metformin -Accu-Cheks q. before meals and at bedtime Insulin sliding scale-using modest amounts of insulin (8) Moderate obstructive sleep apnea: Continue CPAP for at nighttime (9) Restless legs syndrome: Stable -Continue home clonazepam as needed (10) Multinodular goiter: Is not on thyroid hormone replacement at this point and is being monitored by PCP TSH in 03/2020 was normal at 2.23 -Recheck TSH today given onset of rapid A. fib (11) Allergic rhinitis: Continue Singulair (12) Depression: Continue Lexapro, Wellbutrin as above (13) GERD (gastroesophageal reflux disease): Continue PPI daily (14) Hyperlipidemia: Continue statin (15) Osteoporosis: Noted Continue vitamin D (16) DVT prophylaxis: Lovenox , SCDs Disposition-continued stay on PCU for rapid atrial fibrillation, COVID,airborne isolation Admission and Anticipated Discharge Date Admission Date: June 29, 2020 Subjective Pt reports overall feeling much improved today. Denies any SOB or cough, no headaches or fevers. She had rapid atrial fib again overnight from about 0330 to 0700 at times into the 200 bpm range. She reports she was sleeping when it came on and had no idea until the RN came and woke her up to check on her. After she woke up she felt a burning in her chest that then went away when she converted back to NSR. When in sinus rhythm, her HR is consistently 50. ROS: as above, denies N/V, no constipation or diarrhea, has a good appetite Review of Systems Review of Systems: All systems reviewed & are unremarkable except as noted in HPI & below Physical Exam Constitutional: WD/WN, vitals as above Eyes: + anicteric sclerae Neck: trachea midline, no thyromegaly Respiratory: normal respiratory effort (on room air) and + cough (with deep inspiration) Auscultation: + crackles (only at right base); no rhonchi and no wheezes Cardiovascular: Rate/Rhythm: regular rhythm and + bradycardic Heart Sounds: no murmur Extremities: no calf tenderness and no edema Chest (Breasts): Chest: normal inspection of chest Gastrointestinal (Abdomen): normal bowel sounds, soft, nontender, no hepatosplenomegaly Musculoskeletal: Extremities: extremities normal to inspection; no cyanosis and no clubbing Skin: no rashes, warm and dry Neurologic: moves all extremities and awake; no focal motor deficits Psychiatric: A+Ox3, euthymic affect Lymphatic: no lymphedema Results & Data Results & Data ([facility]) Vital Signs (Past 12 Hours) Vital Signs Temp Pulse Pulse Pulse Resp BP Pulse Ox 07/04/20 11:49 36.7 C 54 L 18 129/74 91 07/04/20 07:21 36.6 C 94 H 18 101/64 93 07/04/20 04:00 36.4 C L 117 H 18 127/96 93 07/04/20 03:11 59 L 18 91 Laboratory Results 07/04/20 07/04/20 07/04/20 Range/Units 11:46 07:21 06:12 Sodium (136-145) mmol/L Potassium (3.5-5.1) mmol/L Chloride (98-107) mmol/L Carbon Dioxide (21-32) mmol/L Anion Gap (3-11) BUN (7-18) mg/dl Creatinine (0.6-1.2) mg/dl Est Cr Clr Drug Dosing ml/min Est GFR ( Amer) Est GFR (Non-Af Amer) BUN/Creatinine Ratio (10-20) Glucose (70-99) mg/dl POC Glucose 171 H 143 H (70-99) mg/dl Calcium (8.5-10.1) mg/dl Magnesium (1.8-2.4) mg/dl AST 30 (15-37) U/L ALT 41 (12-78) U/L TSH 07/04/20 07/04/20 07/03/20 Range/Units 06:10 06:10 20:15 Sodium 140 (136-145) mmol/L Potassium 4.4 (3.5-5.1) mmol/L Chloride 105 (98-107) mmol/L Carbon Dioxide 29 (21-32) mmol/L Anion Gap 6.0 (3-11) BUN 23 H (7-18) mg/dl Creatinine 0.83 (0.6-1.2) mg/dl Est Cr Clr Drug Dosing 56.1 ml/min Est GFR ( Amer) 81.1 Est GFR (Non-Af Amer) 70.0 BUN/Creatinine Ratio 27.4 H (10-20) Glucose 165 H (70-99) mg/dl POC Glucose 261 H (70-99) mg/dl Calcium 9.0 (8.5-10.1) mg/dl Magnesium 1.8 (1.8-2.4) mg/dl AST (15-37) U/L ALT (12-78) U/L TSH Pending 07/03/20 Range/Units 16:31 Sodium (136-145) mmol/L Potassium (3.5-5.1) mmol/L Chloride (98-107) mmol/L Carbon Dioxide (21-32) mmol/L Anion Gap (3-11) BUN (7-18) mg/dl Creatinine (0.6-1.2) mg/dl Est Cr Clr Drug Dosing ml/min Est GFR ( Amer) Est GFR (Non-Af Amer) BUN/Creatinine Ratio (10-20) Glucose (70-99) mg/dl POC Glucose 209 H (70-99) mg/dl Calcium (8.5-10.1) mg/dl Magnesium (1.8-2.4) mg/dl AST (15-37) U/L ALT (12-78) U/L TSH PG Care Time/CCT Total # of Minutes Spent Total Time Spent with Patient: Total time spent is greater than 50% in coordination of care (as documented) at patient's floor/unit and/or counseling patient: Coding Level of Care Code 39741 Subseq Hosp Care Lvl 3 Diagnoses COVID-19 U07.1 Atrial fibrillation I48.91 Hypoxia R09.02 Elevated troponin R79.89 Asthma J45.909 Anxiety F41.9 Type 2 diabetes mellitus E11.9 Moderate obstructive sleep apnea G47.33 Restless legs syndrome G25.81 Multinodular goiter E04.2 Allergic rhinitis J30.9 Depression F32.9 GERD (gastroesophageal reflux disease) K21.9 Hyperlipidemia E78.5 Osteoporosis M81.0 DVT prophylaxis Z29.9
[2020-07-04] MEDS ORDERED: DIGOXIN 0.25 MG TAB PO ONE (13:00)
--- NOTE | 2020-07-04 16:31 | Cardiology Consultation ---
Date of Consultation July 04, 2020 Assessment & Plan (1) Atrial fibrillation: The patient's atrial fibrillation likely stems from her advanced age, history of obstructive sleep apnea and current pulmonary infection. I do not have any assessment of her cardiac structure to know if she has concomitant valvular heart disease. Fortunately, she has few symptoms associated with her atrial fibrillation despite high ventricular rates. There is no documented history of prior episodes of atrial fibrillation. She may have less atrial fibrillation once her infection improves. Her case is complicated by high ventricular rates in atrial fibrillation and relative bradycardia in sinus rhythm. There may come a time where pacemaker is indicated for tachy-mary syndrome. Currently, I think adding digoxin to her medical regimen may have some efficacy. I will continue her on beta-blockade. We can monitor her heart rates and symptoms. Hopefully, she will have less atrial fibrillation as her clinical condition improves in any decision regarding a pacemaker may be deferred to the outpatient setting in that situation. She will continue on systemic anticoagulation with Lovenox while an inpatient and transition to Eliquis once discharged. History of Present Illness Reason for Consultation: Atrial fibrillation Requesting Physician: [place] Attending Physician: Marii Quinn MD History of Present Illness the patient is a 74-year-old woman without a known history of cardiovascular disease who was admitted for respiratory failure due to Covid 19. the patient had tested positive for virus on an outpatient basis and was convalescing at home when she began to notice some worsening dyspnea and hypoxia. Her initial assessment suggest an element of respiratory compromise and she did have pulmonary infiltrates on x-ray. She was admitted isolation and started on aggressive therapy. Two nights ago she had an episode of atrial fibrillation with associated high ventricular rates. This resolved spontaneously. She was started on beta-blockade and continued on systemic anticoagulation which initially had been initiated for prevention of thrombosis associated with novel menjivar virus. Patient had another episode of atrial fibrillation last evening lasting a few hours. This also was associated with high ventricular rates. She spontaneously converted again this morning to sinus rhythm. My interview with the patient took place over the telephone in order to reduce additional exposure to Covid 19. the patient was initially unaware of any arrhythmia. She did not report symptoms of palpitations or rapid heartbeat. She has not feel any specific change in her respiratory status or other symptoms. In fact, she was notified by the nursing staff that her rhythm had changed. On the 2nd evening she felt as if she had some slight burning in the chest associated with her atrial fibrillation. Prior to her current infection she was an active individual who did not participate in regular exercise, but did not have limitations associated with activity. She did report some mild chest discomfort while at ascending stairs. This is not appear to be new and seems quite chronic. It is also quite rare and not limiting. She has not repo rt other symptoms of chest discomfort, palpitations, dizziness or lightheadedness or breathing difficulty. Allergies Allergy/AdvReac Type Severity Reaction Status Date / Time codeine Allergy Verified 06/29/20 11:48 sulfamethoxazole Allergy Verified 06/29/20 11:48 [From Bactrim] trimethoprim [From Bactrim] Allergy Verified 06/29/20 11:48 Home Medications Home Medications Medication Instructions Recorded Confirmed Type albuterol sulfate 90 mcg/actuation 2 puffs INH QID PRN #18 gm 05/24/19 06/29/20 Rx aerosol inhaler oxygen-air delivery systems #1 10/06/19 10/06/19 History metformin 500 mg tablet 500 mg PO BID #180 tab 03/16/20 06/29/20 Rx atorvastatin 80 mg tablet 80 mg PO QPM #90 tab 04/15/20 06/29/20 Rx acetaminophen [Tylenol Extra 1,000 mg PO Q6H PRN 06/29/20 06/29/20 History Strength] bupropion HCl 75 mg PO QAM 06/29/20 06/29/20 History cholecalciferol (vitamin D3) 2,000 units PO QAM 06/29/20 06/29/20 History clonazepam [Klonopin] 0.5 mg PO TID PRN 06/29/20 06/29/20 History escitalopram oxalate [Lexapro] 20 mg PO QAM 06/29/20 06/29/20 History fenofibrate 54 mg PO QAM 06/29/20 06/29/20 History ksvxnsvjexh-herrdivqa-nbtqaamu 1 puffs INH QAM 06/29/20 06/29/20 History [Trelegy Ellipta] loratadine [Allergy Relief 10 mg PO QAM 06/29/20 06/29/20 History (loratadine)] magnesium oxide 0 mg PO QAM 06/29/20 06/29/20 History meloxicam [Mobic] 15 mg PO QAM 06/29/20 06/29/20 History metronidazole [MetroCream] 1 appln TOP DAILY 06/29/20 06/29/20 History mirabegron [Myrbetriq] 50 mg PO QAM 06/29/20 06/29/20 History montelukast [Singulair] 10 mg PO QPM 06/29/20 06/29/20 History oxybutynin chloride 5 mg PO QAM 06/29/20 06/29/20 History pantoprazole [Protonix] 40 mg PO QAM 06/29/20 06/29/20 History vitamin B complex [B 1 tab PO QAM 06/29/20 06/29/20 History Complex-Vitamin B12] Patient History Medical History GERD (gastroesophageal reflux disease) (Acute) Graves disease (Acute) Hyperlipidemia (Acute) Hypomagnesemia (Acute) Moderate obstructive sleep apnea (Acute) Multinodular goiter Osteoporosis (Acute) Pulmonary nodules (Acute) Restless legs syndrome (Acute) Type 2 diabetes mellitus (Acute) Urinary urgency (Resolved) Vitamin D deficiency (Acute) Surgical History History of cholecystectomy History of corneal transplant Family History Father Asthma Heart disease Diabetes Hemangioma Glaucoma Mother Stroke Social History Smoking Status: Former smoker Tobacco Type: Cigarettes Age Quit Using Tobacco: 51; Years Smoked: 20; Second Hand Exposure: No; Do You Dip or Chew Tobacco: No; Tobacco Cessation Education Requested by Patient: No Hx Alcohol Use: No Hx Substance Use: No Preferred Language: Bulgarian Communication Ability: Effective Visual Impairment: No Limitations Hearing Ability: Normal Beliefs That Will Affect Care: None marital status: Current Living Situation: Spouse current occupational status: retired Other Information That Helps Us Care for You: No Feels Safe at Home: Yes Safety Concerns: Feels Safe At This Time Dental Care, Regularly: Yes Review of Systems Review of Systems: All systems reviewed & are unremarkable except as noted in HPI & below Physical Exam Physical Exam: Examination was not performed in person as the patient is currently in respiratory isolation. Results & Data ([facility]) Vital Signs (Past 12 Hours) Vital Signs Temp Pulse Pulse Resp BP Pulse Ox 07/04/20 13:38 54 L 07/04/20 11:49 36.7 C 54 L 18 129/74 91 07/04/20 07:21 36.6 C 94 H 18 101/64 93 Laboratory Results Abnormal Lab Results 07/03/20 07/03/20 07/04/20 16:31 20:15 06:10 Sodium 140 Potassium 4.4 Chloride 105 Carbon Dioxide 29 Anion Gap 6.0 BUN 23 H Creatinine 0.83 Est Cr Clr Drug Dosing 56.1 Est GFR ( Amer) 81.1 Est GFR (Non-Af Amer) 70.0 BUN/Creatinine Ratio 27.4 H Glucose 165 H POC Glucose 209 H 261 H Calcium 9.0 Magnesium 1.8 AST ALT TSH 07/04/20 07/04/20 07/04/20 06:10 06:12 07:21 Sodium Potassium Chloride Carbon Dioxide Anion Gap BUN Creatinine Est Cr Clr Drug Dosing Est GFR ( Amer) Est GFR (Non-Af Amer) BUN/Creatinine Ratio Glucose POC Glucose 143 H Calcium Magnesium AST 30 ALT 41 TSH 0.945 07/04/20 11:46 Sodium Potassium Chloride Carbon Dioxide Anion Gap BUN Creatinine Est Cr Clr Drug Dosing Est GFR ( Amer) Est GFR (Non-Af Amer) BUN/Creatinine Ratio Glucose POC Glucose 171 H Calcium Magnesium AST ALT TSH PG Care Time/CCT Total # of Minutes Spent Total Time Spent with Patient: Total time spent is greater than 50% in coordination of care (as documented) at patient's floor/unit and/or counseling patient: Coding Level of Care Code 91727 Initial Inpt Care Lvl 2 Diagnoses Atrial fibrillation I48.91
[2020-07-04] MEDS: clonazePAM 0.5 MG TAB PO PRN (20:15)
[2020-07-04] MEDS: ATORVASTATIN 40 MG TAB PO SCH (20:19)
[2020-07-04] MEDS: MONTELUKAST SODIUM 10 MG TABLET PO SCH (20:19)
[2020-07-05] MEDS ORDERED: dilTIAZem HCL 30 MG TAB PO ONE (06:02)
[2020-07-05] MEDS ORDERED: dilTIAZem HCl 5 MG/ML 5 ML VIAL IV STA (06:02)
[2020-07-05 07:22] LABS: Basophils # (auto) 0.01 K/uL (0-0.2); Basophils % (auto) 0.1 %; Eosinophils # (auto) 0.02 K/uL (0-0.5); Eosinophils % (auto) 0.2 %; Hematocrit (blood only) 37.7 % (37-47); Hemoglobin 12.3 g/dL (12.0-16.0); Immature Granulocytes # (auto) 0.17 K/uL (0.00-0.02); Immature Granulocytes % (auto) 1.5 %; Lymphocytes # (auto) 0.97 K/uL (1.2-3.4); Lymphocytes % (auto) 8.6 %; Mean Corpuscular Hemoglobin 29.4 pg (25-34); Mean Corpuscular Hgb Conc 32.6 g/dL (32-36); Mean Corpuscular Volume 90.2 fL (80-100); Mean Platelet Volume 9.6 fL (7.4-10.4); Monocytes # (auto) 0.95 K/uL (0.11-0.59); Monocytes % (auto) 8.5 %; Neutrophils # (auto) 9.11 K/uL (1.4-6.5); Neutrophils % (auto) 81.1 %; Platelet Count 610 K/uL (130-400); RDW Coefficient of Variation 13.8 % (11.5-14.5); RDW Standard Deviation 45.7 fL (36.4-46.3); Red Blood Count 4.18 M/uL (4.2-5.4); White Blood Count 11.23 K/uL (4.8-10.8)
[2020-07-05 07:38] LABS: D Dimer 560 ug/L FEU (0-500)
[2020-07-05 07:46] LABS: Albumin Level 2.5 gm/dl (3.4-5.0); BUN Creatinine Ratio 25.7 (10-20); Bilirubin Direct 0.2 mg/dl (0-0.2); Calcium 8.8 mg/dl (8.5-10.1); Creatinine Clr Calc Pharmacy 50.7 ml/min; Est GFR (African American) 71.6; Est GFR (Non-African American) 61.8; Magnesium 2.2 mg/dl (1.8-2.4); Potassium 4.8 mmol/L (3.5-5.1)
[2020-07-05 07:49] LABS: Bilirubin,Total 0.6 mg/dl (0.2-1); C Reactive Protein 1.59 mg/dl (0-0.29); Ferritin 243.2 ng/ml (8-388); Total Protein 6.8 gm/dl (6.4-8.2)
[2020-07-05] MEDS: METOPROLOL TARTRATE 25 MG TAB PO SCH (07:52)
[2020-07-05] MEDS: PANTOprazole 40 MG TAB PO SCH (07:52)
[2020-07-05] MEDS: VITAMIN B COMPLEX TAB PO SCH (07:53)
[2020-07-05] MEDS: MELOXICAM 7.5 MG TAB PO SCH (07:53)
[2020-07-05] MEDS: CHOLECALCIFEROL 1,000 UNITS 25 MCG TAB PO SCH (07:53)
[2020-07-05] MEDS: buPROPion HCl 75 MG TABLET PO SCH (07:53)
[2020-07-05] MEDS: LORATADINE 10 MG TAB PO SCH (07:53)
[2020-07-05] MEDS: OXYBUTYNIN CHLORIDE 5 MG TAB PO SCH (07:54)
[2020-07-05] MEDS: ESCITALOPRAM OXALATE 20 MG TAB PO SCH (07:54)
[2020-07-05] MEDS: MIRABEGRON ER 25 MG TAB PO SCH (07:54)
[2020-07-05] MEDS: MAGNESIUM OXIDE 400 MG TAB PO SCH (07:54)
[2020-07-05] MEDS: dexAMETHasone 4 MG TAB PO SCH (07:54)
[2020-07-05] MEDS: FENOFIBRATE - ORDER AWAITING ACTION SCH ×2 (07:55→17:30)
[2020-07-05] MEDS: UMECLIDINIUM/VILANTEROL 62.5/25MCG 7 PUFFS/INHALER INH SCH (07:55)
[2020-07-05] MEDS: ENOXAPARIN 80 MG/0.8 ML SYR SQ SCH ×2 (07:55→22:19)
[2020-07-05] MEDS: FLUTICASONE FUROATE 100MCG 14 PUFFS/INHALER INH SCH (07:55)
[2020-07-05] MEDS: INSULIN ASPART 100 UNITS/ML 3 ML PEN SC SCH ×4 (08:24→22:33)
[2020-07-05] MEDS ORDERED: DIGOXIN 0.125 MG TAB PO ONE (09:05)
[2020-07-05] MEDS ORDERED: METOPROLOL TARTRATE 1 MG/ML VIAL IV STA (09:14)
[2020-07-05] MEDS ORDERED: METOPROLOL TARTRATE 25 MG TAB PO STA (09:14)
[2020-07-05] MEDS: DIGOXIN 0.25 MG TAB PO SCH (17:30)
[2020-07-05] MEDS: clonazePAM 0.5 MG TAB PO PRN (22:19)
[2020-07-05] MEDS: METOPROLOL TARTRATE 50 MG TAB PO SCH (22:19)
[2020-07-05] MEDS: MONTELUKAST SODIUM 10 MG TABLET PO SCH (22:19)
[2020-07-05] MEDS: ATORVASTATIN 40 MG TAB PO SCH (22:20)
--- NOTE | 2020-07-05 22:52 | Hospitalist Progress Note ---
Date of Service July 05, 2020 Assessment & Plan (1) COVID-19: Diagnosed with COVID-19 on 06/21 as an outpatient. Now here with development of acute respiratory failure with hypoxia. Markers of inflammation were modestly elevated and troponin was positive she was requiring 4L nasal cannula with her respiratory failure, and qualified as having severe COVID -Dr Quinn discussed case with pulmonary service- has now completed a 5 day course of Remdesivir - continue dexamethasone 6 mg p.o. once daily x10-day course last day 07/08/20 -is now weaned off O2 to RA and much improved, remains afebrile, has good appetite, no N/V/D, surinder po Overall improved stable for discharge from COVID perspective, keep one more day to monitor HR with paroxysmal afib, sick sinus syndrome (2) Atrial fibrillation: Pt developed new onset afib overnight early in am 07/02, she was given metoprolol and then diltiazem with good rate control and did convert after po metoprolol tartrate initially did have minor troponin elevation but was felt secondary to covid Then, had another 3-4 hours of Rapid Afib in early AM 07/04 with rates 120-200 bpm. Only symptom was chest burning but remained stable. Converted spontaneously back to 50bpm -is currently on metoprolol 25mg po bid -consulted Cardiology-appreciate recs---> Tachy-mary syndrome, start digoxin, continue same metoprolol will need close follow up with Dr Baig, consider pacemaker in near future -Continue to monitor on telemetry -Eventually needs an echocardiogram to check for cardiomyopathy, but her COVID- 19 precludes that at this time -Continue therapeutic Lovenox while inpatient in case of need for pacemaker, but her co-pay for Eliquis as an outpatient would be $0 as per window caser-patient is agreeable to starting Eliquis as opposed to warfarin (3) Hypoxia: resolved acute respiratory failure with hypoxia, secondary to COVID Chest x-ray with bilateral diffuse pulmonary infiltrates, procalcitonin was negative (4) Elevated troponin: Troponin mildly elevated at 0.28-> 0.178, she has no chest pain or history of CAD Likely secondary to hypoxia and demand ischemia plus consider myocardia inflamation from COVID ECG was without ischemic changes -no suspect of nstemi as no trend of troponin -Cannot get an echocardiogram as she is positive for COVID (5) Asthma: With a history of underlying mild intermittent asthma -Continue albuterol inhaler 2 puffs 4 times daily scheduled -Giving dexamethasone complete 10 day course -Continue home inhaled corticosteroid/LABA/LAMA (6) Anxiety: Continue home clonazepam, Lexapro, and Wellbutrin (7) Type 2 diabetes mellitus: hemoglobin A1c is in the diabetic range-7.4, typically only on metformin -Accu-Cheks q. before meals and at bedtime Insulin sliding scale-using modest amounts of insulin (8) Moderate obstructive sleep apnea: Continue CPAP for at nighttime (9) Restless legs syndrome: Stable -Continue home clonazepam as needed (10) Multinodular goiter: Is not on thyroid hormone replacement at this point and is being monitored by PCP TSH in 03/2020 was normal at 2.23 -Recheck TSH today given onset of rapid A. fib (11) Allergic rhinitis: Continue Singulair (12) Depression: Continue Lexapro, Wellbutrin as above (13) GERD (gastroesophageal reflux disease): Continue PPI daily (14) Hyperlipidemia: Continue statin (15) Osteoporosis: Noted Continue vitamin D Admission and Anticipated Discharge Date Admission Date: June 29, 2020 Subjective could not see patient today because negative pressure on room failed and maintenance working on fixing could not even go into the anteroom reviewed chart reviewed labs, D dimer going down d/w Dr. Baig, he is giving another dose of Digoxin for afib she was in afib with RVR this morning then down to 50's when she converted to sinus rhythm per Dr. Baig, can hold on pacemaker during admission, may need to consider as outpatient she is stable on room air per RN who was able to see her this morning, she has been doing well, breathing better, no complaints hope to d/c tomorrow Review of Systems Review of Systems: Other (unable to speak with patient, could not enter the room) Physical Exam Physical Exam: could not examine patient today because negative pressure malfunctioned Results & Data Results & Data ([facility]) Vital Signs (Past 12 Hours) Vital Signs Temp Pulse Pulse Resp BP Pulse Ox 07/05/20 21:00 37.1 C 57 L 16 145/78 H 91 07/05/20 17:42 36.6 C 63 20 141/67 H 89 L 07/05/20 17:30 63 07/05/20 12:00 36.5 C 52 L 18 145/67 H 88 L Laboratory Results Laboratory Results - last 24 hr 07/05/20 07/05/20 07/05/20 07:02 07:02 07:02 WBC 11.23 H RBC 4.18 L Hgb 12.3 Hct 37.7 MCV 90.2 MCH 29.4 MCHC 32.6 RDW Std Deviation 45.7 RDW Coeff of Ambreen 13.8 Plt Count 610 H MPV 9.6 Immature Gran % (Auto) 1.5 Neut % (Auto) 81.1 Lymph % (Auto) 8.6 Lea % (Auto) 8.5 Eos % (Auto) 0.2 Baso % (Auto) 0.1 Neut # (Auto) 9.11 H Lymph # (Auto) 0.97 L Lea # (Auto) 0.95 H Eos # (Auto) 0.02 Baso # (Auto) 0.01 Immature Gran # (Auto) 0.17 H D-Dimer 560 H* Sodium 139 Potassium 4.8 Chloride 104 Carbon Dioxide 30 Anion Gap 5.0 BUN 24 H Creatinine 0.92 Est Cr Clr Drug Dosing 50.7 Est GFR ( Amer) 71.6 Est GFR (Non-Af Amer) 61.8 BUN/Creatinine Ratio 25.7 H Glucose 176 H POC Glucose Calcium 8.8 Magnesium 2.2 Ferritin 243.2 Total Bilirubin 0.6 Direct Bilirubin 0.2 AST 18 ALT 41 Alkaline Phosphatase 37 L Lactate Dehydrogenase Total Creatine Kinase 55 C-Reactive Protein 1.59 H Total Protein 6.8 Albumin 2.5 L 07/05/20 07/05/20 07:02 07:28 WBC RBC Hgb Hct MCV MCH MCHC RDW Std Deviation RDW Coeff of Ambreen Plt Count MPV Immature Gran % (Auto) Neut % (Auto) Lymph % (Auto) Lea % (Auto) Eos % (Auto) Baso % (Auto) Neut # (Auto) Lymph # (Auto) Lea # (Auto) Eos # (Auto) Baso # (Auto) Immature Gran # (Auto) D-Dimer Sodium Potassium Chloride Carbon Dioxide Anion Gap BUN Creatinine Est Cr Clr Drug Dosing Est GFR ( Amer) Est GFR (Non-Af Amer) BUN/Creatinine Ratio Glucose POC Glucose 161 H Calcium Magnesium Ferritin Total Bilirubin Direct Bilirubin AST ALT Alkaline Phosphatase Lactate Dehydrogenase 285 H Total Creatine Kinase C-Reactive Protein Total Protein Albumin Medications Administered Current Inpatient Medications Acetaminophen (Tylenol) 650 mg PO Q4H PRN PRN Reason: Pain or Fever Stop: 07/29/20 18:43 Last Admin: 06/29/20 20:13 Dose: 650 mg Documented by: Albuterol (Ventolin Hfa) 2 puffs INH QIDR PRN PRN Reason: Shortness Of Breath Or Wheezing Stop: 07/30/20 18:59 Atorvastatin Calcium (Lipitor) 80 mg PO QPM DONTE Stop: 07/29/20 20:59 Last Admin: 07/05/20 22:20 Dose: 80 mg Documented by: Bupropion HCl (Wellbutrin) 75 mg PO QAM DONTE Stop: 07/30/20 08:59 Last Admin: 07/05/20 07:53 Dose: 75 mg Documented by: Clonazepam (Klonopin) 0.5 mg PO TID PRN PRN Reason: restless leg syndrome Stop: 07/29/20 18:43 Last Admin: 07/05/20 22:19 Dose: 0.5 mg Documented by: Dexamethasone (Decadron) 6 mg PO DAILY [facility] Stop: 07/29/20 14:59 Last Admin: 07/05/20 07:54 Dose: 6 mg Documented by: Dextrose (Dextrose 50%) 25 - 50 ml IV UD PRN; Protocol PRN Reason: Hypoglycemia Protocol Stop: 07/29/20 18:43 Digoxin (Lanoxin) 0.25 mg PO DAILY@1600 [facility] Stop: 08/04/20 15:59 Last Admin: 07/05/20 17:30 Dose: 0.25 mg Documented by: Enoxaparin Sodium (Lovenox) 70 mg SQ Q12H DONTE Stop: 08/01/20 04:44 Last Admin: 07/05/20 22:19 Dose: 70 mg Documented by: Escitalopram Oxalate (Lexapro Tab) 20 mg PO QAM DONTE Stop: 07/30/20 08:59 Last Admin: 07/05/20 07:54 Dose: 20 mg Documented by: Fluticasone Furoate (Arnuity Ellipta 100mcg) 1 puffs INH DAILY DONTE Stop: 07/30/20 08:59 Last Admin: 07/05/20 07:55 Dose: 1 puffs Documented by: Glucagon (Glucagen) 1 mg SQ UD PRN; Protocol PRN Reason: Hypoglycemia Protocol Stop: 07/29/20 18:43 Glucose (Dex4 Glucose) 4 - 8 tabs PO UD PRN; Protocol PRN Reason: Hypoglycemia Protocol Stop: 07/29/20 18:43 Glucose (Glucose 40%) 15 - 30 gm PO UD PRN; Protocol PRN Reason: Hypoglycemia Protocol Stop: 07/29/20 18:43 Insulin Aspart (Novolog Flexpen) 0 units SC ACHS [facility] Stop: 07/29/20 18:59 Last Admin: 07/05/20 22:33 Dose: 5 units Documented by: Loratadine (Claritin) [facility] [place] Stop: 07/30/20 08:59 Last Admin: 07/05/20 07:53 Dose: 10 mg Documented by: Magnesium Oxide (Mag-Ox) 400 mg PO QAM [facility] Stop: 07/30/20 08:59 Last Admin: 07/05/20 07:54 Dose: 400 mg Documented by: Meloxicam (Mobic) 15 [facility] [place] Stop: 07/30/20 08:59 Last Admin: 07/05/20 07:53 Dose: 15 mg Documented by: Metoprolol Tartrate (Lopressor) 50 mg PO BID [facility] Stop: 08/04/20 20:59 Last Admin: 07/05/20 22:19 Dose: 50 mg Documented by: Mirabegron (Myrbetriq Er) 50 mg PO QAM [facility] Stop: 07/30/20 08:59 Last Admin: 07/05/20 07:54 Dose: 50 mg Documented by: Miscellaneous (Order Awaiting Action) 1 ea N/A QS [facility] Stop: 07/30/20 00:00 Last Admin: 07/05/20 17:30 Dose: Not Given Documented by: Miscellaneous (Order Awaiting Action) 1 ea N/A QS [facility] Stop: 07/30/20 00:00 Last Admin: 07/05/20 17:30 Dose: Not Given Documented by: Miscellaneous (Carbohydrates For Hypoglycemia) 15 - 30 gm PO UD PRN PRN Reason: Hypoglycemia Protocol Stop: 07/29/20 18:43 Montelukast Sodium (Singulair) 10 mg PO QPM [facility] Stop: 07/29/20 20:59 Last Admin: 07/05/20 22:19 Dose: 10 mg Documented by: Ondansetron HCl (Zofran) 4 mg IV Q6H PRN PRN Reason: Nausea Stop: 07/29/20 18:43 Oxybutynin Chloride (Ditropan) 5 mg [facility] [place] Stop: 07/30/20 08:59 Last Admin: 07/05/20 07:54 Dose: 5 mg Documented by: Pantoprazole Sodium (Protonix) 40 mg [facility] [place] Stop: 07/30/20 08:59 Last Admin: 07/05/20 07:52 Dose: 40 mg Documented by: Polyethylene Glycol (Miralax Powder Packet) 17 gm PO DAILY PRN PRN Reason: Constipation Stop: 07/29/20 18:43 Umeclidinium/Vilanterol (Anoro Ellipta 62.5/25 Mcg Inh) 1 puffs INH DAILY [facility] Stop: 07/30/20 08:59 Last Admin: 07/05/20 07:55 Dose: 1 puffs Documented by: Vitamin B Complex (Vitamin B Complex) 1 tab PO [facility] Stop: 07/30/20 08:59 Last Admin: 07/05/20 07:53 Dose: 1 tab Documented by: Vitamin D (Vitamin D3) 2,000 units PO [facility] Stop: 07/30/20 08:59 Last Admin: 07/05/20 07:53 Dose: 2,000 units Documented by: PG Care Time/CCT Total # of Minutes Spent Total Time Spent: 20 Total Time Spent with Patient: Total time spent is greater than 50% in coordination of care (as documented) at patient's floor/unit and/or counseling patient: reviewed chart, discussed with Dr. Baig, reviewed telemetry strips could not examine or talk with patient because negative pressure malfunctioned, not allowed to enter room all afternoon and evening Coding Level of Care Code 44560 Subseq Hosp Care Lvl 1 Diagnoses COVID-19 U07.1 Atrial fibrillation I48.91 Hypoxia R09.02 Elevated troponin R79.89 Asthma J45.909 Anxiety F41.9 Type 2 diabetes mellitus E11.9 Moderate obstructive sleep apnea G47.33 Restless legs syndrome G25.81 Multinodular goiter E04.2 Allergic rhinitis J30.9 Depression F32.9 GERD (gastroesophageal reflux disease) K21.9 Hyperlipidemia E78.5 Osteoporosis M81.0
[2020-07-06 07:36] LABS: Hematocrit (blood only) 37.8 % (37-47); Hemoglobin 12.5 g/dL (12.0-16.0); Mean Corpuscular Hemoglobin 30.2 pg (25-34); Mean Corpuscular Hgb Conc 33.1 g/dL (32-36); Mean Corpuscular Volume 91.3 fL (80-100); Mean Platelet Volume 9.7 fL (7.4-10.4); Platelet Count 631 K/uL (130-400); RDW Coefficient of Variation 13.8 % (11.5-14.5); RDW Standard Deviation 45.9 fL (36.4-46.3); Red Blood Count 4.14 M/uL (4.2-5.4); White Blood Count 12.62 K/uL (4.8-10.8)
[2020-07-06] MEDS: FENOFIBRATE - ORDER AWAITING ACTION SCH ×2 (08:03→17:05)
[2020-07-06] MEDS: ENOXAPARIN 80 MG/0.8 ML SYR SQ SCH (08:04)
[2020-07-06] MEDS: UMECLIDINIUM/VILANTEROL 62.5/25MCG 7 PUFFS/INHALER INH SCH (08:06)
[2020-07-06] MEDS: FLUTICASONE FUROATE 100MCG 14 PUFFS/INHALER INH SCH (08:06)
[2020-07-06] MEDS: LORATADINE 10 MG TAB PO SCH (08:07)
[2020-07-06] MEDS: OXYBUTYNIN CHLORIDE 5 MG TAB PO SCH (08:07)
[2020-07-06] MEDS: METOPROLOL TARTRATE 50 MG TAB PO SCH (08:07)
[2020-07-06] MEDS: MAGNESIUM OXIDE 400 MG TAB PO SCH (08:07)
[2020-07-06] MEDS: PANTOprazole 40 MG TAB PO SCH (08:08)
[2020-07-06] MEDS: CHOLECALCIFEROL 1,000 UNITS 25 MCG TAB PO SCH (08:08)
[2020-07-06] MEDS: ESCITALOPRAM OXALATE 20 MG TAB PO SCH (08:08)
[2020-07-06] MEDS: buPROPion HCl 75 MG TABLET PO SCH (08:08)
[2020-07-06] MEDS: VITAMIN B COMPLEX TAB PO SCH (08:08)
[2020-07-06] MEDS: MELOXICAM 7.5 MG TAB PO SCH (08:08)
[2020-07-06] MEDS: dexAMETHasone 4 MG TAB PO SCH (08:08)
[2020-07-06] MEDS: MIRABEGRON ER 25 MG TAB PO SCH (08:08)
[2020-07-06] MEDS: INSULIN ASPART 100 UNITS/ML 3 ML PEN SC SCH ×3 (08:57→17:05)
--- NOTE | 2020-07-06 16:36 | Discharge Summary ---
Date of Service July 06, 2020 Admission HPI Per Admitting Provider This patient is a 74-year-old female with a history of asthma with COPD, DM 2, GERD,hyperlipidemia, SUDHAKAR on CPAP, RLS, multinodular thyroid goiter, environmental allergies/allergic rhinitis, overactive bladder, osteoporosis, depression/anxiety, and recent diagnosis of COVID-19 on 06/21 who presents to the ER with worsening shortness of breath and noted a pulse ox at home of 87-88%. She began with symptoms of COVID 7 days ago when she developed a frontal headache and thought she had a sinus infection. She then had body aches all over and a few days of diarrhea which is now all resolved. She continues to have low appetite and fatigue, but has been forcing herself to eat despite a loss of taste. Her headaches are now gone. She denies ever having any fevers at home, but did have chills yet her temperature was always normal on 2 different thermometers. She also developed a cough that was minimally productive but did not really feel short of breath. Her daughter is a nurse who encouraged her to come in today when her oxygen levels were getting lower. She denies any chest pain at all. The patient knows that she got COVID from her sister and [id number] whom she was spending a lot of time with lately and then they also are COVID positive. Her daughter is also now testing positive, as well as 3 of the 5 women from her knitting group that she attended last week before she knew that she had COVID. In the ER, she was found to be with a pulse ox of 87% on room air and was placed on 5 L nasal cannula to bring her pulse ox up to the mid high 90s. She felt much improved after this. A chest x-ray demonstrated cardiomegaly with pulmonary vascular congestion and bilateral reticular opacities suggestive of pulmonary edema or multifocal pneumonitis. There was also trace pleural effusions bilaterally. She had some lymphopenia on her CBC, a mildly elevated d-dimer, was mildly hyponatremic with a mildly elevated creatinine at 1.21 above her baseline, AST was slightly elevated at 64, LDH was elevated at 365, CRP was quite elevated at 16.4, and a procalcitonin was normal. Her troponin was mildly elevated at 0.283. Her ECG was without any ischemic changes She will be admitted to the hospital for acute respiratory failure with hypoxia, elevated troponin in the setting of COVID-19. Principal Diagnosis COVID 19 infection with acute hypoxic respiratory failure Discharge Exam Constitutional WD/WN, vitals as above Eyes PERRL, conjunctivae normal, anicteric sclerae ENMT external ear and nose normal, oropharynx normal Neck trachea midline, no thyromegaly Respiratory normal respiratory effort, lungs clear to auscultation Cardiovascular Rate/Rhythm: regular rhythm and + bradycardic (50's) Heart Sounds: normal S1 and normal S2; no murmur Vessels: no JVD Extremities: normal capillary refill; no edema Gastrointestinal (Abdomen) normal bowel sounds, soft, nontender, no hepatosplenomegaly Musculoskeletal no cyanosis or clubbing, extremities motor strength 5/5 Skin no rashes, warm and dry Neurologic patellar DTR's 2+ bilat, sensation intact and PERRL, EOMI, accommodation nl, no face palsy, no dysarthria Psychiatric A+Ox3, euthymic affect Lymphatic no cervical or axillary lymphadenopathy Discharge Data Allergies Allergy/AdvReac Type Severity Reaction Status Date / Time codeine Allergy Verified 06/29/20 11:48 sulfamethoxazole Allergy Verified 06/29/20 11:48 [From Bactrim] trimethoprim [From Bactrim] Allergy Verified 06/29/20 11:48 Consultations 06/29/20 13:35 ED Decision to Admit Stat 07/04/20 08:24 Consult Cardiology Routine Hospital Course (1) COVID-19: Diagnosed with COVID-19 on 06/21 as an outpatient. Now here with development of acute respiratory failure with hypoxia. Markers of inflammation were modestly elevated and troponin was positive she was requiring 4L nasal cannula with her respiratory failure, and qualified as having severe COVID -Dr Quinn discussed case with pulmonary service- has now completed a 5 day course of Remdesivir - continue dexamethasone 6 mg p.o. once daily, 7 days completed here, discharge on 3 more days of 6mg daily -is now weaned off O2 to RA for several days and much improved, remains afebrile, has good appetite, no N/V/D, surinder po Overall improved and stable for discharge to home (2) Atrial fibrillation: Pt developed new onset afib overnight early in am 8/2, she was given metoprolol and then diltiazem with good rate control and did convert after po metoprolol tartrate initially did have minor troponin elevation but was felt secondary to covid Then, had another 3-4 hours of Rapid Afib in early AM 07/04 with rates 120-200 bpm. Only symptom was chest burning but remained stable. Converted spontaneously back to 50bpm -is currently on metoprolol 25mg po bid, will continue this on discharge -consulted Cardiology-appreciate recs---> Tachy-mary syndrome, start digoxin, titrated dose up to 250mcg daily follow up with Dr. Baig in next few weeks for rate/rhythm check, echocardiogram will consider pacemaker in the future for tachy mary syndrome on discharge, Eliquis 5mg BID, Metoprolol tartrate 25mg BID and Digoxin 250mcg daily (3) Hypoxia: resolved acute respiratory failure with hypoxia, secondary to COVID Chest x-ray with bilateral diffuse pulmonary infiltrates, procalcitonin was negative (4) Elevated troponin: Troponin mildly elevated at 0.28-> 0.178, she has no chest pain or history of CAD Likely secondary to hypoxia and demand ischemia plus consider myocardia inflamation from COVID ECG was without ischemic changes -no suspect of nstemi as no trend of troponin -Cannot get an echocardiogram as she is positive for COVID (5) Asthma: With a history of underlying mild intermittent asthma -Continue albuterol inhaler 2 puffs 4 times daily scheduled -Giving dexamethasone complete 10 day course -Continue home inhaled corticosteroid/LABA/LAMA (6) Anxiety: Continue home clonazepam, Lexapro, and Wellbutrin (7) Type 2 diabetes mellitus: hemoglobin A1c is in the diabetic range-7.4, typically only on metformin -Accu-Cheks q. before meals and at bedtime Insulin sliding scale-using modest amounts of insulin (8) Moderate obstructive sleep apnea: Continue CPAP for at nighttime (9) Restless legs syndrome: Stable -Continue home clonazepam as needed (10) Multinodular goiter: Is not on thyroid hormone replacement at this point and is being monitored by PCP TSH in 03/2020 was normal at 2.23 -Recheck TSH today given onset of rapid A. fib (11) Allergic rhinitis: Continue Singulair (12) Depression: Continue Lexapro, Wellbutrin as above (13) GERD (gastroesophageal reflux disease): Continue PPI daily (14) Hyperlipidemia: Continue statin (15) Osteoporosis: Noted Continue vitamin D Total Time Total Time Spent Total Time Spent (In Minutes): 35 minutes Total Time Includes: Examination of the Patient, Discharge Planning, Medication Reconciliation, Communication With Other Providers (Dr. Baig) and Other (long discussion with patient's son about discharge plans) Discharge Plan Discharge Items Patient Disposition: Home - Self-Care Reason For Visit: COVID-19, ACUTE RESP FAILURE Discharge Diagnosis: COVID 19 Acute hypoxia Paroxysmal atrial fibrillation with intermittent bradycardia Condition on Discharge: Fair Goals: complete treatment of COVID 19 with Dexamethasone get rest, stay well hydrated and well nourished follow up with Dr. Baig in 3-4 weeks Activity: Per Instructions section Driving/Machine Use: Resume 3 days after discharge Weightbearing: Full weightbearing Non-emergency contact: Primary Care Provider Call non-emergency contact if: you have any medication questions, your symptoms worsen and you have a fever Follow-up/Referrals: Rico Arevalo MD [Primary Care Provider] - 07/11/20 11:30 am Diet: Carb Consistent or DM2 and Heart Healthy Addtl Attending Provider Instructions: Medications: - ELIQUIS: 5mg twice a day, this is for anticoagulation/stroke prevention with atrial fibrillation - METOPROLOL: 25mg twice a day for rate control with atrial fibrillation - DIGOXIN: 250mcg daily for rate control with atrial fibrillation - DEXAMETHASONE: 6mg daily for three more days to complete treatment for COVID 19 COVID 19 infection with acute hypoxic respiratory failure recovering well, completed 5 days of Rendisvimir, finish 10 days total of Dexamethasone, 3 more days needed recommend that you continue to quarantine in your home for 7 more days Atrial fibrillation paroxysmal, new onset when you are in sinus rhythm your heart rate is slow, in the 50-60 range will treat with Digoxin and lopressor please take Eliquis twice a day for stroke prevention Dr. Baig with [facility] cardiology would like to evaluate you for possible pacemaker in the future, follow up in 3-4 weeks if you have symptoms of afib such as palpitations, burning chest pain, light headedness and your pulse is fast, return to the ED if they don't go away in 1-2 hours would sit down / lay down and wait for symptoms to go away you have had some intermittent runs of atrial fibrillation while here but they resolve spontaneously Pending Studies at Discharge: No Stand-Alone Forms: [facility], Smoking Cessation Medications and DC Order Prescriptions: New digoxin 250 mcg (0.25 mg) Tablet 0.25 mg PO DAILY@1600 30 Days Qty: 30 RF: 1 Eliquis 5 mg tablet 5 mg PO BID Qty: 60 RF: 3 metoprolol tartrate 25 mg tablet 25 mg PO Q12H Qty: 60 RF: 3 Continued metformin 500 mg tablet 500 mg PO BID Qty: 180 RF: 3 atorvastatin 80 mg tablet 80 mg PO QPM Qty: 90 RF: 0 (DME) oxygen-air delivery systems device See Dose Instructions .ROUTE .MEDSUPPLY Qty: 1 RF: 0 albuterol sulfate [Ventolin HFA] 90 mcg/actuation HFA aerosol inhaler 2 puffs INH QID PRN (Reason: shortness of breath or wheezing) Qty: 18 RF: 3 magnesium oxide 400 mg magnesium Capsule 0 mg PO QAM RF: 0 pantoprazole [Protonix] 40 mg tablet,delayed release (DR/EC) 40 mg PO QAM RF: 0 metronidazole [MetroCream] 0.75 % cream 1 appln TOP DAILY RF: 0 vitamin B complex [B Complex-Vitamin B12] tablet 1 tab PO QAM RF: 0 montelukast [Singulair] 10 mg tablet 10 mg PO QPM RF: 0 oxybutynin chloride 5 mg tablet 5 mg PO QAM RF: 0 loratadine [Allergy Relief (loratadine)] 10 mg tablet 10 mg PO QAM RF: 0 escitalopram oxalate [Lexapro] 20 mg tablet 20 mg PO QAM RF: 0 cholecalciferol (vitamin D3) 2,000 unit capsule 2,000 units PO QAM RF: 0 fenofibrate 54 mg tablet 54 mg PO QAM RF: 0 Myrbetriq 50 mg tablet extended release 24 hr 50 mg PO QAM RF: 0 Trelegy Ellipta 100-62.5-25 mcg blister with device 1 puffs INH QAM RF: 0 acetaminophen [Tylenol Extra Strength] 500 mg Tablet 1,000 mg PO Q6H PRN (Reason: Pain) RF: 0 No Action clonazepam [Klonopin] 0.5 mg tablet 0.5 mg PO DAILY PRN (Reason: restless leg syndrome) RF: 0 bupropion HCl 75 mg tablet 75 mg PO QAM Qty: 30 RF: 0 Discharge Orders: Discharge Order (Routine); Ordered 07/06/20 Ordered By: Davin Wilhelm/Other Patient Handouts: Managing Type 2 Diabetes, Managing Diabetes: The A1C Test, Diabetes: Meal Planning, A1C Admission Data Admit Date/Time: 06/29/20 14:56 Attending Provider: Davin Calloway Admit Provider: Marii Quinn Primary Care Provider: Rico Arevalo Other Providers: Marii Quinn ; Haider Baig Other Interventions: Discharge Summary Assessment (RN) Last Done: 07/06/20 14:54 Coding Level of Care Code D/C Day Management >30 mins Diagnoses COVID-19 U07.1 Atrial fibrillation I48.91 Hypoxia R09.02 Elevated troponin R79.89 Asthma J45.909 Anxiety F41.9 Type 2 diabetes mellitus E11.9 Moderate obstructive sleep apnea G47.33 Restless legs syndrome G25.81 Multinodular goiter E04.2 Allergic rhinitis J30.9 Depression F32.9 GERD (gastroesophageal reflux disease) K21.9 Hyperlipidemia E78.5 Osteoporosis M81.0
[2020-07-06] MEDS: DIGOXIN 0.25 MG TAB PO SCH (17:04)
--- NOTE | 2020-07-06 17:44 | Cardiology Progress Note ---
Date of Service July 06, 2020 Assessment & Plan (1) Atrial fibrillation: While she continues to have paroxysmal episodes of atrial fibrillation, the overall duration of her episodes appears to be shortening. She does not have symptoms and appears the most these episodes occur while she is sleeping. I would agree with discharge. I think she may continue to have some episodes of atrial fibrillation but will become more aware of the pattern in frequency over time. She seems to tolerate the arrhythmia quite well despite high heart rates at times. Whether this will continue to improve as her infection improves is also unclear. I will make arrangements to see her in the outpatient setting. We did discuss symptoms of which to be aware and which would require urgent evaluation. I agree with her systemic anticoagulation with Eliquis. Admission and Anticipated Discharge Date Admission Date: June 29, 2020 Subjective I spoke with the patient over the phone due to restrictions regarding her viral infection. She certainly feeling better now and is anticipated to be discharged today. Her breathing has improved. She has not noticed any palpitations. She has not report dizziness or lightheadedness or symptoms of chest pain. Review of Systems Review of Systems: Per HPI Physical Exam Physical Exam: not performed due to her current viral infection. Results & Data ([facility]) Vital Signs (Past 12 Hours) Vital Signs Temp Pulse Pulse Pulse Resp BP Pulse Ox 07/06/20 17:04 65 07/06/20 14:54 36.5 C 117 H 52 L 20 151/75 H 89 L 07/06/20 12:47 36.5 C 52 L 20 151/75 H 89 L 07/06/20 08:00 36.6 C 42 L 20 125/65 88 L Laboratory Results Abnormal Lab Results 07/05/20 07/05/20 07/05/20 11:59 17:28 22:05 WBC RBC Hgb Hct MCV MCH MCHC RDW Std Deviation RDW Coeff of Ambreen Plt Count MPV POC Glucose 175 H 282 H 279 H 07/06/20 07/06/20 07/06/20 07:00 07:58 12:16 WBC 12.62 H RBC 4.14 L Hgb 12.5 Hct 37.8 MCV 91.3 MCH 30.2 MCHC 33.1 RDW Std Deviation 45.9 RDW Coeff of Ambreen 13.8 Plt Count 631 H MPV 9.7 POC Glucose 164 H 201 H 07/06/20 16:51 WBC RBC Hgb Hct MCV MCH MCHC RDW Std Deviation RDW Coeff of Ambreen Plt Count MPV POC Glucose 263 H PG Care Time/CCT Total # of Minutes Spent Total Time Spent with Patient: Total time spent is greater than 50% in coordination of care (as documented) at patient's floor/unit and/or counseling patient: Coding Level of Care Code 96498 Subseq Obs Care Lvl 2 Diagnoses Atrial fibrillation I48.91
== END 2020-07-06 18:28 | disposition home or self-care (01) | DRG 177 ==
LOC: ED 10:43 → 2S 14:56 → SUATTDRO 14:56 → 2S 17:39

== ENCOUNTER 2023-05-15 10:07 | Observation (INO) ==
[2023-05-15] MEDS ORDERED: ASPIRIN 81 MG CHEW ONE (11:56)
--- NOTE | 2023-05-15 12:03 | History & Physical Bridge Note ---
Date of Service May 15, 2023 History & Physical Bridge Note I have examined the patient, reviewed the History & Physical and in the interval since the performance of the History & Physical I have noted the following changes of clinical significance: no changes noted
--- NOTE | 2023-05-15 12:04 | Pre Anesthesia Assessment ---
Date of Service May 15, 2023 Pre Sedation Assessment Vital Signs Temp Pulse Resp BP Pulse Ox O2 Del Method 05/15/23 10:27 36.7 C 53 L 18 137/71 97 Room Air Cardiovascular + regular rhythm and + bradycardic Respiratory + respiratory effort normal Pre-Sedation Airway Assessment Smoking Status: Never smoker Hx Sleep Apnea: Yes (cpap) Hx Difficult Intubation: No Short, Thick Neck: No Thyromental Distance: > or= 3.5 Finger Breadths Oral Cavity: + WNL Mallampati Class: III ASA: ASA3 NPO Status Date of Last Intake of Fluids: 05/15/23 Time of Last Intake of Fluids: 07:00 Date of Last Intake of Solid Food: 05/14/23 Time of Last Intake of Solid Foods: 18:00 Procedure Planning Contraindications for Sedation: none Current Medications Reviewed: Yes Notes The planned sedation has been discussed with the patient. Informed Consent was obtained. I have identified the patient, determined the appropriateness of sedation and have assessed the patient immediately prior to the procedure. All medicine(s) and interventions are by my order.
[2023-05-15] MEDS ORDERED: MIDAZOLAM HCL 1 MG/ML 2ML VIAL ONE (12:14)
[2023-05-15] MEDS ORDERED: niCARdipine HCL INJ 2.5 MG/ML 10 ML AMP ONE (12:14)
[2023-05-15] MEDS ORDERED: NITROGLYCERIN/D5W 100MCG/ML 20ML SYR ONE (12:14)
[2023-05-15] MEDS ORDERED: fentaNYL citrate PF 100 MCG/2 ML VIAL ONE (12:14)
[2023-05-15] MEDS ORDERED: HEPARIN (PORCINE) 1000 UNIT/ML 10 ML (CATH LAB USE ONLY) ONE (12:14)
--- NOTE | 2023-05-15 13:40 | Cardiac Catheterization ---
[facility] Data: Braid Cutter Cardiac Status Clinical evaluation leading to the procedure Diagnostic Physicians Name: Greg Baig MD Closure Device Recommendations: PCI without planned CABG Cardiac Cath Procedure Full Procedure Date May 15, 2023 Pre-Procedure Diagnosis Pre-Procedure Diagnosis: Cardiothoracic Symptom AUC Score AUC Score: 7 Post-Procedure Diagnosis Post-Procedure Diagnosis: Moderate CAD Procedure(s) Performed Procedure(s) Performed: Coronary Angiography, Left Heart Cath and Right Heart Cath Labor Relations Supervisor Greg Baig MD Ore Dryer(s) none Estimated Blood Loss Estimated Blood Loss: 12cc Medication(s) Medication(s): Fentanyl, Heparin, Lidocaine 1%, Nicardipine, Nitroglycerin and Versed Summary of Findings Procedure performed: Right heart catheterization, left heart catheterization, coronary angiography Staff water manager: Greg Baig MD Indication: The patient is a 77-year-old woman with persistent dyspnea on exertion. Noninvasive testing has not been revealing. Based on the persistent and worsening nature of her symptoms she was advised to consider right and left heart catheterization. Procedure in detail: The patient was informed of the risks benefits and alternatives to the intended procedure, he understood such and wished to proceed. She was taken to the cardiac catheterization suite in a fasting state. Conscious sedation was administered per protocol and the patient was monitored electrocardiographically throughout today's procedure. The antecubital vein was initially used for advancement of a balloontipped PA catheter. Pressure measurements were obtained and hemodynamics calculated prior to removal of this catheter. The right wrist area was prepped and draped in usual sterile fashion. This area was anesthetized using subcutaneous administration of a lidocaine solution. The right radial artery was then accessed using Seldinger technique, and a arterial sheath was placed at this site over a guidewire. The sheath was used to facilitate passage of the cardiac catheter for images were obtained in multiple orthogonal views prior to removal of the catheter. Unfortunately, there was an obstruction in the proximal right subclavian artery. A wire and catheter could not be advanced at that site. The site was subsequently abandoned. The left radial artery was subsequently prepped and draped in usual sterile fashion. Left radial artery was then accessed using Seldinger technique and sheath was placed over guidewire at the site. This sheath was used to facilitate passage of the cardiac catheter for coronary angiogram was then obtained in multiple orthogonal views prior to removal of the catheter. At the conclusion of the procedure the sheath was removed and hemostasis was achieved at the access site using manual pressure. The patient tolerated procedure well, there were no immediate complications. Equipment used: 6 Bur[place]ian balloontipped PA catheter, 5 [place] Gilbert 4 Findings Thermodilution cardiac output 4.7 L/min Coronary angiography Left main: Left main was normal in size and caliber. There were luminal irregularities. However it did bifurcated normally into the left anterior descending and left circumflex artery. No obstructive lesions Left anterior descending colon left anterior descending did reach the apex. It produced a large first diagonal branch and several additional diminutive diagonal branches. There were luminal irregularities and approximately 30% narrowing subsequent to D1. However, no obstructive lesions. Left circumflex: Left circumflex was a nondominant vessel. It produced a large first OM system. Had a large ongoing AV groove vessel with some diminutive OM branches. No obstructive lesions in this vessel Right coronary artery: The right coronary artery had luminal irregularities throughout its course. There was a discrete 70% stenosis in its very proximal portion. 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 Normal pulmonary and intracardiac pressures Normal cardiac output Right dominant coronary system Discrete proximal right coronary lesion of unclear severity Plan: Invasive evaluation of the proximal right coronary Hemodynamics Rest Ao:: 120/49 mmHg Final Ao: 112/60 mmHg LV: 117/0 mmHg Left ventricular end-diastolic pressure 4 mmHg RA: Mean 3 mmHg RV: 29/0 mmHg PA: 29/8 mmHg with a mean of 17 mmHg PW: 6 mmHg Recommendations Recommendations: PCI without planned CABG Specimens Specimens: None Contrast (mls) 80 Procedural Complication(s) None Disposition PCU I attest to the content of the Intraoperative Record and any orders documented therein. Any exceptions are noted below. [facility] Card Cath Procedure Codes Cardiac Catheterization Procedure 1: Cardiovascular Cath Procedures: 86940 Coronaries & LHC (+/-LV) & RHC Moderate Sedation Procedure 1: Sedation/Anesthesia: 76444 Mod Sedation by the same physician;Init15 Min Child Age 5 & Up Procedure 2: Sedation/Anesthesia: 70245 Mod Sedation by the same physician; Ea [id number] Minutes PG Care Time/CCT Total # of Minutes Spent Total Time Spent with Patient: Total time spent is greater than 50% in coordination of care (as documented) at patient's floor/unit and/or counseling patient:
[2023-05-15 14:10] LABS: iSTAT Arterial Blood Gas HCO3 27 meg/L (19-24); iSTAT Arterial Blood Gas pCO2 53 mmHg (35-46); iSTAT Arterial Blood Gas pH 7.32 (7.35-7.45); iSTAT Arterial Blood Gas pO2 35 mmHg (80-95); iSTAT Carbon Dioxide 29 mmol/L (24-31); iSTAT Hematocrit 36 % (37-47); iSTAT Hemoglobin 12.2 g/dl (12.0-16.0); iSTAT Potassium 4.1 mmol/L (3.3-5.0); iSTAT Sodium 142 mmol/L (135-144)
[2023-05-15 14:11] LABS: iSTAT Arterial Blood Gas HCO3 26 meg/L (19-24); iSTAT Arterial Blood Gas pCO2 51 mmHg (35-46); iSTAT Arterial Blood Gas pH 7.32 (7.35-7.45); iSTAT Arterial Blood Gas pO2 114 mmHg (80-95); iSTAT Carbon Dioxide 28 mmol/L (24-31); iSTAT Hematocrit 36 % (37-47); iSTAT Hemoglobin 12.2 g/dl (12.0-16.0); iSTAT Potassium 4.1 mmol/L (3.3-5.0); iSTAT Sodium 142 mmol/L (135-144)
[2023-05-15] MEDS ORDERED: LORazepam 0.5 MG TAB PO PRN (16:31)
[2023-05-15] MEDS ORDERED: ALBUTEROL HFA 8 GM INHALER INH PRN (16:31)
[2023-05-15] MEDS ORDERED: Nursing to Pharmacy Communication SCH (18:00)
[2023-05-15] MEDS ORDERED: ACETAMINOPHEN 325 MG TAB ONE (18:19)
[2023-05-15] MEDS: SODIUM CHLORIDE 0.9% 1000ML 1,000 ML IV SCH (20:30)
[2023-05-15] MEDS: FLECAINIDE ACETATE 100 MG TABLET PO SCH (20:33)
[2023-05-15] MEDS: MAGNESIUM OXIDE 400 MG TAB PO SCH (20:35)
[2023-05-15] MEDS: METOPROLOL TARTRATE 25 MG TAB PO SCH (20:35)
[2023-05-15] MEDS ORDERED: ATORVASTATIN 40 MG TAB PO SCH (21:00)
[2023-05-15] MEDS ORDERED: MONTELUKAST SODIUM 10 MG TABLET PO SCH (21:00)
[2023-05-16] MEDS: ACETAMINOPHEN 325 MG TAB PO PRN ×2 (03:30→11:03)
[2023-05-16] MEDS ORDERED: MIDAZOLAM HCL 1 MG/ML 2ML VIAL ONE (08:10)
[2023-05-16] MEDS ORDERED: niCARdipine HCL INJ 2.5 MG/ML 10 ML AMP ONE (08:10)
[2023-05-16] MEDS ORDERED: HEPARIN (PORCINE) 1000 UNIT/ML 10 ML (CATH LAB USE ONLY) ONE (08:10)
[2023-05-16] MEDS ORDERED: NITROGLYCERIN/D5W 100MCG/ML 20ML SYR ONE (08:10)
[2023-05-16] MEDS ORDERED: fentaNYL citrate PF 100 MCG/2 ML VIAL ONE (08:10)
[2023-05-16 08:11] LABS: BUN Creatinine Ratio 18.9 (10-20); Calcium 8.4 mg/dl (8.6-10.3); Creatinine Clr Calc Pharmacy 50.1 ml/min; Est GFR (Non-African American) 62.1 ml/min; Potassium 4.1 mmol/L (3.5-5.1)
[2023-05-16] MEDS ORDERED: buPROPion XL 300 MG TABCR PO SCH (09:00)
[2023-05-16] MEDS ORDERED: LOSARTAN POTASSIUM 50 MG TAB PO SCH (09:00)
[2023-05-16] MEDS ORDERED: buPROPion XL 150 MG TABCR PO SCH (09:00)
[2023-05-16] MEDS ORDERED: PANTOprazole 40 MG TAB PO SCH (09:00)
[2023-05-16] MEDS ORDERED: UMECLIDINIUM/VILANTEROL 62.5/25MCG 7 PUFFS/INHALER INH SCH (09:00)
[2023-05-16] MEDS ORDERED: FLUTICASONE FUROATE 200MCG 14 PUFFS/INHALER INH SCH (09:00)
[2023-05-16] MEDS ORDERED: [UNRECOGNIZED DRUG - REMARK] SCH (09:00)
[2023-05-16] MEDS ORDERED: NON-FORMULARY MEDICATION (Fluticasone-Umeclidin-Vilanter [Trelegy Ellipta] 200-62.5-25 mcg INH SCH (09:00)
[2023-05-16] MEDS ORDERED: ESCITALOPRAM OXALATE 20 MG TAB PO SCH (09:00)
--- NOTE | 2023-05-16 09:50 | Pre Anesthesia Assessment ---
Date of Service May 16, 2023 Pre Sedation Assessment Vital Signs Temp Pulse Pulse Resp BP BP Pulse Ox 05/16/23 07:56 62 16 143/82 H 91 05/16/23 07:00 05/16/23 04:21 57 L 169/67 H 05/16/23 03:10 36.9 C 55 L 18 185/74 H 91 05/15/23 22:45 59 L 05/15/23 22:40 36.9 C 60 16 173/55 H 91 05/15/23 19:15 37.0 C 65 18 173/62 H 92 05/15/23 18:30 65 05/15/23 17:56 36.9 C 65 19 174/97 H 94 05/15/23 17:56 05/15/23 17:15 57 L 14 146/82 H 93 05/15/23 16:44 58 L 14 142/83 H 93 05/15/23 16:30 57 L 14 127/80 93 05/15/23 16:15 59 L 14 145/83 H 93 05/15/23 16:00 56 L 14 143/73 H 93 05/15/23 15:45 57 L 14 152/96 H 93 05/15/23 15:45 56 L 14 151/85 H 93 05/15/23 15:30 57 L 14 152/96 H 93 05/15/23 15:15 55 L 14 113/92 93 05/15/23 15:00 56 L 14 140/82 93 05/15/23 14:45 56 L 14 123/99 93 05/15/23 14:30 55 L 14 141/85 H 91 05/15/23 14:20 54 L 14 141/85 H 91 05/15/23 10:27 36.7 C 53 L 18 137/71 97 Pulse Ox O2 Del Method O2 Del Method 05/16/23 07:56 Room Air 05/16/23 07:00 Room Air 05/16/23 04:21 05/16/23 03:10 Room Air 05/15/23 22:45 05/15/23 22:40 Room Air 05/15/23 19:15 Room Air 05/15/23 18:30 05/15/23 17:56 Room Air 05/15/23 17:56 94 Room Air 05/15/23 17:15 Room Air 05/15/23 16:44 Room Air 06/15/23 16:30 Room Air 05/15/23 16:15 Room Air 05/15/23 16:00 Room Air 05/15/23 15:45 Room Air 05/15/23 15:45 Room Air 05/15/23 15:30 Room Air 05/15/23 15:15 Room Air 05/15/23 15:00 Room Air 05/15/23 14:45 Room Air 05/15/23 14:30 Room Air 05/15/23 14:20 Room Air 05/15/23 10:27 Room Air Cardiovascular RRR, no murmur, no edema Respiratory normal respiratory effort, lungs clear to auscultation Pre-Sedation Airway Assessment Smoking Status: Never smoker Hx Sleep Apnea: Yes Hx Difficult Intubation: No Short, Thick Neck: No Thyromental Distance: < 3.5 Finger Breadths Oral Cavity: + Dental Abnormalities Mallampati Class: III ASA: ASA2 NPO Status Date of Last Intake of Fluids: 05/15/23 Time of Last Intake of Fluids: 21:00 Date of Last Intake of Solid Food: 05/16/23 Time of Last Intake of Solid Foods: 17:00 Notes The planned sedation has been discussed with the patient. Informed Consent was obtained. I have identified the patient, determined the appropriateness of sedation and have assessed the patient immediately prior to the procedure. All medicine(s) and interventions are by my order.
--- NOTE | 2023-05-16 09:54 | Post Anesthesia Assessment ---
Date of Service May 16, 2023 Post Sedation Assessment Vital Signs Temp Pulse Pulse Resp BP BP Pulse Ox 05/16/23 07:56 62 16 143/82 H 91 05/16/23 07:00 05/16/23 04:21 57 L 169/67 H 05/16/23 03:10 36.9 C 55 L 18 185/74 H 91 05/15/23 22:45 59 L 05/15/23 22:40 36.9 C 60 16 173/55 H 91 05/15/23 19:15 37.0 C 65 18 173/62 H 92 05/15/23 18:30 65 05/15/23 17:56 36.9 C 65 19 174/97 H 94 05/15/23 17:56 05/15/23 17:15 57 L 14 146/82 H 93 05/15/23 16:44 58 L 14 142/83 H 93 05/15/23 16:30 57 L 14 127/80 93 05/15/23 16:15 59 L 14 145/83 H 93 05/15/23 16:00 56 L 14 143/73 H 93 05/15/23 15:45 57 L 14 152/96 H 93 05/15/23 15:45 56 L 14 151/85 H 93 05/15/23 15:30 57 L 14 152/96 H 93 05/15/23 15:15 55 L 14 113/92 93 05/15/23 15:00 56 L 14 140/82 93 05/15/23 14:45 56 L 14 123/99 93 05/15/23 14:30 55 L 14 141/85 H 91 05/15/23 14:20 54 L 14 141/85 H 91 05/15/23 10:27 36.7 C 53 L 18 137/71 97 Pulse Ox O2 Del Method O2 Del Method 05/16/23 07:56 Room Air 05/16/23 07:00 Room Air 05/16/23 04:21 05/16/23 03:10 Room Air 05/15/23 22:45 05/15/23 22:40 Room Air 05/15/23 19:15 Room Air 05/15/23 18:30 05/15/23 17:56 Room Air 05/15/23 17:56 94 Room Air 05/15/23 17:15 Room Air 05/15/23 16:44 Room Air 06/15/23 16:30 Room Air 05/15/23 16:15 Room Air 05/15/23 16:00 Room Air 05/15/23 15:45 Room Air 05/15/23 15:45 Room Air 05/15/23 15:30 Room Air 05/15/23 15:15 Room Air 05/15/23 15:00 Room Air 05/15/23 14:45 Room Air 05/15/23 14:30 Room Air 05/15/23 14:20 Room Air 05/15/23 10:27 Room Air Recovery Score Activity: Moves 4 extremities Respiration: Deep Breath/Cough Circulation: +/-20% PreAnes Value Consciousness: Fully Awake Oxygen Saturation: > 92% On Room Air Post Anesthesia Score: 10 Discharge Sedation Level of Care: Fast Track Phase II Post Sedation Plan On clinical assessment, the patient appears to have tolerated the sedation without complications. Patient is recovering as anticipated. Patient will continue to be monitored by nursing and may be discharged when sedation discharge criteria are met per below protocol. Upon Completions of procedure up to 15 minutes continue every 5 minute vital signs and the P.A.R. score; then discharge to a Phase I or Fast Track to Phase II per the following guidelines: * Discharge Patient to appropriate Phase II area if PAR is 8 or greater or return to pre- procedure baseline. The post - procedure orders will be as directed. * If PAR score is less than 8 or not return to pre-procedure baseline then patient will follow Phase I monitoring till PAR is reached for Phase II. The Phase I may be done in procedure room or may call to secure a Phase I area. * If naloxone or flumazenil are used for reversal, hold in Phase I for continued monitoring from when last reversal dose was given for a minimum of 60 minutes or longer pending the nurse and/or physician discretion of patient condition before discharge to Phase II. Please call the Sedation Physician to re-evaluate and complete post-note for discharge to Phase II area. Do NOT discharge from procedure sedation or Phase 1 until post- sedation evaluation note is complete by procedure /sedation MD Sedation Discharge Instructions to be given to the patient at discharge to home. [facility] Procedure Codes (Charges) Indication for Procedure Indication for procedure: SOB angiographically moderate to borderline severe RCA stenosis Sedation/Anesthesia Procedure 1: Sedation/Anesthesia: 75287 Mod Sedation by the same physician;Init15 Min Child Age 5 & Up (initial 15 min. start 0844) Total Sedation Time (minutes): 56 Procedure 2: Sedation/Anesthesia: 91920 Mod Sedation by the same physician; Ea [id number] Minutes (additional 41 min, end 0940) Total Sedation Time (minutes): 56
[2023-05-16] MEDS: METOPROLOL TARTRATE 25 MG TAB PO SCH (11:02)
[2023-05-16] MEDS: MAGNESIUM OXIDE 400 MG TAB PO SCH (11:03)
[2023-05-16] MEDS: FLECAINIDE ACETATE 100 MG TABLET PO SCH (11:04)
[2023-05-16] MEDS: SODIUM CHLORIDE 0.9% 1000ML 1,000 ML IV SCH (11:06)
--- NOTE | 2023-05-16 16:58 | Cardiac Catheterization ---
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 Anginal equivalent)) Anginal Classification: CCS III Heart Failure: No Cardiogenic Shock within 24 Hours: No Cardiac Arrest within 24 Hours: No Imaging Studies Past 6 Months: Yes (Coronary angiography yesterday) Stress Studies Past 6 Months: No Coronary Anatomy Dominant: Right RCA (% Stenosis): Proximal (50 to 70%, moderate calcification) Diagnostic Physicians Name: Migue Ugalde MD, PhD Closure Device Percutaneous Entry Location: Femoral Closure Device: Angio-Seal Recommendations: PCI without planned CABG Cardiac Cath Procedure Full Procedure Date May 16, 2023 Pre-Procedure Diagnosis Pre-Procedure Diagnosis: Cardiothoracic Symptom AUC Score AUC Score: 7 Post-Procedure Diagnosis Post-Procedure Diagnosis: Moderate CAD Procedure(s) Performed Procedure(s) Performed: Ultrasound Guided Vascular Access and Fractional Flow [place] Supervisor Migue Ugalde MD, PhD Federal Appellate Clerk(s) none Estimated Blood Loss Estimated Blood Loss: 5 mL Medication(s) Medication(s): Fentanyl, Heparin, Lidocaine 1% and Versed Summary of Findings Brief description: Patient was brought to the cardiac catheterization suite where she was shaved and prepped in a sterile fashion. Sedated using IV Versed and fentanyl. Soft tissues of the right groin were anesthetized using 10 mils of 1% Xylocaine. Using the ultrasound for guidance (image saved), the right femoral artery was accessed and a 5 Dutch femoral artery sheath was placed. We then advanced a 0.035 J-tip wire but has significant difficulty. Fluoroscopy suggested iliac and distal aortic atherosclerosis. We were able to advance the 035 wire further and exchanged the 5 Dutch femoral sheath for a 6 Dutch Manjula 23 cm sheath. We advanced all catheters over a J-wire. We attempted to cannulate the right coronary artery selectively in order to perform IFR analysis of the RCA. The ostium of the RCA was fairly calcified and there was significant tortuosity in the aorta making cannulation very difficult. We attempted cannulation using a 5 Dutch JR4, 6 Dutch JR 3.5 guide catheter, 6 Dutch 3 DRC guide catheter, 6 Dutch AR-1 guide catheter, and a 6 Dutch multipurpose guide catheter. We also attempted a 6 Dutch right coronary bypass guide catheter. We were best able to approximate the ostium using the 6 Dutch JR 3.5 guide catheter and we advanced a Omni wire for the IFR through this guide catheter and tried to advance it distally in the RCA in order to allow the guide catheter to be advanced over the wire to the ostium. However, the guidewire would go a short distance in the proximal RCA but then we could not advance the guide catheter without the guidewire pulling out of the RCA. A fluoroscopic view from the ROJAS position demonstrated that the right coronary ostium arose anteriorly but immediately took an upward and sharp posterior direction. We did not have any posterior guide catheters available. Given the totality of these findings in combination with yesterday's difficulties it was decided to forego further attempts at this time. Therefore, all catheters were removed. Limited right femoral artery angiography was performed to evaluate for closure. The findings were favorable and therefore the femoral artery sheath was exchanged for a 6 Dutch Angio-Seal closure device. This was deployed in the recommended fashion. We obtained immediate hemostasis and the patient remained hemodynamically stable. This ended the case. Findings: 1. Cine angiography was not performed. Fluoroscopy revealed difficult coronary anatomy with regard to its takeoff and course. Angiographically borderline proximal RCA stenosis with significant calcification is noted. Mechanical difficulties secondary to aortic atherosclerosis and significant calcification at the ostium of the RCA. Summary: 1. Failed attempt at IFR analysis of RCA. Since the patient does not have angina in the RCA lesion is angiographically borderline with significant technical difficulties I would recommend she have stress MPI imaging. If that suggests inferior ischemia then referral to a tertiary center where they have a larger menu of catheters, wires, and adjuvant therapies (atherectomy devices) which would facilitate PCI of this difficult RCA. Would also optimize her medical therapy for secondary prevention of coronary disease and provide significant antianginal regimen which may relieve her symptoms (shortness of breath). If it does not resolve her shortness of breath then it may be that her shortness of breath is not secondary to this borderline lesion. Hemodynamics Rest Ao:: 161/83 mmHg Final Ao: 167/76 mmHg LV: Not performed Recommendations Recommendations: PCI without planned CABG Specimens Specimens: None Radiation Exposure (mGy) 1317 mGy, fluoroscopy time 21.3 minutes Contrast (mls) 90 mL Anesthesia 2 mg IV Versed, 50 mcg IV fentanyl. Start time 0844, stop time 0940 Procedural Complication(s) None Disposition PCU I attest to the content of the Intraoperative Record and any orders documented therein. Any exceptions are noted below. [facility] Card Cath Procedure Codes Cardiac Catheterization Procedure 1: Cardiovascular Cath Procedures: 10476 (Doppler) Pressure Wire Therapeutic Services & Ancillary Procedure 1: Cardiovascular Tx and Anc Procedures: 35668 Ultrasonic Guidance Vascular Access Moderate Sedation Procedure 1: Sedation/Anesthesia: 54072 Mod Sedation by the same physician;Init15 Min Child Age 5 & Up (Initial 15 min, start 0844) Procedure 2: Sedation/Anesthesia: 08422 Mod Sedation by the same physician; Ea [id number] Minutes (Additional 41 min, stop time 0940) PG Care Time/CCT Total # of Minutes Spent Total Time Spent with Patient: Total time spent is greater than 50% in coordination of care (as documented) at patient's floor/unit and/or counseling patient:
--- NOTE | 2023-05-16 17:14 | Discharge Summary ---
Date of Service May 16, 2023 Discharge Data Allergies Allergy/AdvReac Type Severity Reaction Status Date / Time codeine Allergy Intermediate Vomiting & Verified 05/15/23 10:59 hallucinations sulfamethoxazole Allergy Intermediate Rash Verified 05/15/23 10:59 [From Bactrim] trimethoprim [From Bactrim] Allergy Intermediate Rash Verified 05/15/23 10:59 Procedures Performed Operation Date: 05/16/23 08:00 Actual Procedures s Cineradiography w/Routine Exam - Migue Ugalde MD, PhD s Ultrasound Vascular Access - Migue Ugalde MD, PhD p Placement Art Occlusive Device - Migue Ugalde MD, PhD Ordered Studies 05/15/23 06:34 CL Cath Imgs for PACS use only Routine 05/16/23 07:05 CL Cath Imgs for PACS use only Routine Discharge Plan Discharge Items Patient Disposition: Home - Self-Care Reason For Visit: DYSPNEA Discharge Diagnosis: coronary artery disease Condition on Discharge: Good Activity: Per Instructions section Activity Comment: No vigorous use of the wrists/hands for 7 days Lifting: No more than 10 pounds Lifting Comment: No lifting >10# or straining for 7 days Bathing: No limitations Driving/Machine Use: Resume 1 day after discharge Non-emergency contact: Grid Inspector Call non-emergency contact if: you have any medication questions and your symptoms worsen Follow-up/Referrals: Rico Arevalo MD [Primary Care Provider] - Diet: Carb Consistent or DM2 and Heart Healthy Addtl Attending Provider Instructions: Do not resume metformin until Friday 05/18 re-start isisorbit (already have at home) Pending Studies at Discharge: No Stand-Alone Forms: [facility], Smoking Cessation Medications and DC Order Prescriptions: New amlodipine 2.5 mg tablet 2.5 mg PO DAILY Qty: 30 3RF Continued albuterol sulfate [Ventolin HFA] 90 mcg/actuation HFA aerosol inhaler 2 puff INH QID PRN (Reason: shortness of breath or wheezing) Qty: 18 5RF Rx Instructions: Please substitute least expensive albuterol inhaler. metformin 500 mg tablet 500 mg PO BID Qty: 200 3RF escitalopram oxalate [Lexapro] 20 mg tablet 20 mg PO QAM Qty: 90 3RF bupropion HCl 300 mg tablet extended release 24 hr 300 mg PO QAM Qty: 90 3RF atorvastatin 80 mg tablet 80 mg PO QPM Qty: 90 3RF montelukast [Singulair] 10 mg tablet 10 mg PO QPM Qty: 90 3RF (DME) OneTouch Ultra Test Strip See Rx Instructions .Route Qty: 100 4RF Rx Instructions: onetouch ultra in vitro strip; check sugars once a day; DX E11.9 pantoprazole [Protonix] 40 mg tablet,delayed release (DR/EC) 40 mg PO QAM Qty: 90 3RF Eliquis 5 mg tablet 5 mg PO BID Qty: 180 3RF fenofibrate 54 mg tablet 54 mg PO QAM Qty: 90 3RF losartan 50 mg tablet 50 mg PO DAILY Qty: 90 3RF ibandronate 150 mg tablet 150 mg PO MONTHLY Qty: 3 3RF Rx Instructions: as directed. nitroglycerin 0.4 mg tablet, sublingual 0.4 mg sublingual Q5M PRN (Reason: chest pain) Qty: 25 0RF Rx Instructions: do not exceed 3 doses per episode lorazepam 0.5 mg tablet 0.5 mg PO BID PRN (Reason: anxiety or restless legs) Qty: 60 2RF Patient Comments: Per daughter she takes every night at bedtime Rx Instructions: Per daughter she takes evry night at bedtime metoprolol tartrate 25 mg tablet 25 mg PO BID magnesium oxide 400 mg magnesium capsule 400 mg PO BID Rx Instructions: per daughter she takes once a day Trelegy Ellipta 200-62.5-25 mcg blister with device 1 inh inhalation DAILY Qty: 60 5RF Rx Instructions: rinse mouth and gargle after usage flecainide 50 mg tablet 100 mg PO Q12H Qty: 60 2RF vitamin B complex [B Complex-Vitamin B12] tablet 1 tab PO QAM loratadine [Allergy Relief (loratadine)] 10 mg tablet 10 mg PO QAM oxycodone 5 mg tablet 5 mg PO Q8H PRN (Reason: pain) Qty: 29 0RF bupropion HCl 150 mg Tablet Extended Release 24 Hr 150 mg PO QAM Rx Instructions: take with bupropion 300mg Discharge Orders: Discharge Order (Routine); Ordered 05/16/23 Ordered By: Greg Wilhelm/Other Patient Handouts: Coronary Angiography, Having Cardiac Catheterization Admission Data Admit Date/Time: 05/15/23 16:28 Attending Provider: Greg Baig Admit Provider: Greg Baig Primary Care Provider: Rico Arevalo Other Interventions: Discharge Summary Assessment (RN) Last Done: 05/16/23 16:11 Coding Diagnoses
[2023-05-17] MEDS ORDERED: FENOFIBRATE NANOCRYSTALLIZED 48 MG TABLET PO SCH (09:00)
== END 2023-05-16 16:30 | disposition home or self-care (01) ==
LOC: CC 10:07 → 2S 10:07

== ENCOUNTER 2025-01-07 08:54 | Inpatient (IN) ==
--- NOTE | 2025-01-07 09:24 | Emergency Department Note ---
Impression & Plan Fracture of proximal phalanx of digit of left hand, Atrial flutter with rapid ventricular response, Acute hypoxic respiratory failure ED Provider Note NAME: PRANAY HYMAN AGE: 79 SEX: F : 1945 ARRIVES VIA: Walk-In INFORMANT: Patient, ED PROVIDER(S): Dafne Ferrer MD CHIEF COMPLAINT: Ground-level fall, trauma alert HPI: This is a 79-year-old female senting after a fall. Patient is a current trauma alert. She had fallen yesterday morning. She tripped going up the stairs and think she may have fallen into a closet that was wooden. She notes pain in her head, left hand and left rib cage. She notes she does have A-fib and takes Eliquis for this. No LOC is noted. ROS: See above HPI for pertinent positives & negatives. A total of 10 systems reviewed and were otherwise negative. PAST MEDICAL HISTORY: See Below PAST SURGICAL HISTORY: See Below FAMILY HISTORY: See Below SOCIAL HISTORY: See Below HOME MEDICATIONS: See Below ALLERGIES: See Below VITALS: See Below PHYSICAL EXAMINATION: General: resting comfortably in no acute distress Head: Normocephalic, left forehead hematoma/ecchymosis Eyes: Normal inspection, extraocular muscles intact Ear, nose, throat: Normal external exam Neck: Normal range of motion Respiratory: lungs clear to auscultation bilaterally Cardiovascular: Regular rate/rhythm, no murmur, left posterior chest wall tender to palpation GI: soft, nontender, no guarding or rebound, lower right buttock linear abrasion with slight ecchymosis, Extremities: nontender, moves all extremities Neuro: The patient awake and alert, appropriately conversive, no focal deficits, symmetric faces Skin: Warm, dry, and intact MEDICAL DECISION MAKING: This is a 79-year-old female presenting after a fall. Patient is current trauma alert we will do CT of the head, C-spine, chest abdomen pelvis due to numerous injuries. Patient does have significant ecchymosis per the x-ray of the left hand. Will do chest x-ray as well -Primary survey reveals no abnormalities, airway breathing and circulation are all intact, secondary survey does reveal the facial hematoma/ecchymosis as well as left posterior chest wall tenderness and right buttock linear abrasion with slight ecchymosis - chest x-ray read as mild CHF by radiology -Pelvic x-ray reveals no osseous fracture. Hand x-ray does reveal a possible fifth digit proximal phalanx fracture, will splint this -CT of the head, neck, chest abdomen pelvis are all reassuring without large fractures. There is a possible trace hemorrhage in the left groin -Otherwise patient continues to be in A-fib with RVR with slight hypoxia between 86 and 92 percent. -Patient given 2 doses of IV diltiazem without improvement of a flutter -Added on a pressure panel which is positive at this time for coronavirus OC 43. -Bloodwork is reviewed showing no significant leukocytosis, anemia, electrolyte or creatinine abnormality -Patient admitted for A-fib with RVR, hypoxia secondary to upper respiratory infection Differential diagnosis: Intracranial hemorrhage, cervical spine fracture, splenic/liver laceration, bowel perforation, rib fracture, hemothorax Independent History obtained from: [facility] interpreted by me: ECG: ECG independently interpreted by me with atrial flutter at a rate of 104, left axis deviation, normal QRS, normal QTc, no ST segment elevations consistent with STEMI criteria Cardiac Monitoring: An order was placed for continuous cardiac monitoring. The monitor shows a rate of 107 with atrial flutter rhythm. Critical Care Note: I have personally spent 45 minutes of critical care time in the direct management of this patient. This includes bedside care, interpretation of diagnostic studies, and testing, discussion with consultants, patient, and family members, and other required patient management activities. This 45 minutes is in excess of all separately billable procedures. Past Med/Surg History Problem List (Updated 01/07/25 @ 17:22 by Dafne Ferrer MD) Acute hypoxic respiratory failure (Acute) Atrial flutter with rapid ventricular response (Acute) Fracture of proximal phalanx of digit of left hand (Acute) Asymptomatic bacteriuria Fracture of proximal phalanx of digit of left hand Paroxysmal atrial fibrillation with RVR Acute renal insufficiency Prepatellar bursitis Mild cognitive disorder Fatigue Iron deficiency anemia Dysuria Abnormal urine odor Pericardial effusion Lung nodules PAD (peripheral artery disease) Hypertension S/P coronary artery stent placement Blood loss anemia CAD (coronary atherosclerotic disease) Memory loss Hypomagnesemia Paroxysmal atrial fibrillation Osteoporosis Vitamin D deficiency (Acute) Back pain, chronic (Acute) Asthma (Acute) Allergic rhinitis (Acute) Osteoarthritis of right knee Microalbuminuria Depression (Acute) Anxiety (Acute) Atrial fibrillation (Acute) Multinodular goiter Type 2 diabetes mellitus (Acute) NIDDM GERD (gastroesophageal reflux disease) (Acute) Graves disease (Acute) Euthyroid per 01/31/21 thyroid studies -- no medications/issues currently, under surveillance by PCP Hyperlipidemia (Acute) Moderate obstructive sleep apnea (Acute) CPAP Pulmonary nodules (Acute) Restless legs syndrome (Acute) Medical History (Updated 01/07/25 @ 17:22 by Dafne Ferrer MD) Meningioma Pseudoaneurysm of left femoral artery Left groin mass Abdominal distension Diaphoresis Chest discomfort Dyspnea on exertion Abnormal thyroid blood test Cough Close exposure to 2019-nCoV Conjunctivitis Close exposure to 2019-nCoV Cough productive of purulent sputum History of COVID-19 Dx 05/2020 (treated inpatient at [facility]) Asthma Well controlled Closed fracture of right distal fibula Thyroid nodule Osteoporosis Surgical History Hx of cardiac cath 06/05/2023 H/O laminectomy (~1991) cervical laminectomy. full rom S/P right knee arthroscopy History of esophagogastroduodenoscopy (EGD) History of colonoscopy History of cholecystectomy History of corneal transplant R/L Family History Father Diabetes Heart disease Hemangioma Glaucoma Asthma Mother Stroke Other No family history of adverse response to anesthesia Social History Smoking Status: Former smoker Tobacco Type: Cigarettes Age Started Using Tobacco: 16; Age Quit Using Tobacco: 51; packs per day: 1; Second Hand Exposure: No; Do You Dip or Chew Tobacco: No; Hx Alcohol Use: Yes Hx Substance Use: No Preferred Language: Chadian Communication Ability: Effective Visual Impairment: No Limitations Hearing Ability: Normal 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 Beliefs That Will Affect Care: None marital status: Current Living Situation: Spouse current occupational status: retired Feels Safe at Home: Yes Dental Care, Regularly: Yes Seatbelt Use: always Assistive Devices: CPAP Allergies Allergies Allergy/AdvReac Type Severity Reaction Status Date / Time codeine Allergy Intermediate Vomiting & Verified 01/07/25 12:09 hallucinations sulfamethoxazole Allergy Intermediate Rash Verified 01/07/25 12:09 [From Bactrim] trimethoprim [From Bactrim] Allergy Intermediate Rash Verified 01/07/25 12:09 Home Meds Home Medications Medication Instructions Recorded Confirmed loratadine 10 mg tablet (Allergy 10 mg PO QAM 06/29/20 01/07/25 Relief (loratadine)) clopidogrel 75 mg tablet 75 mg PO DAILY 06/09/23 01/07/25 magnesium oxide 400 mg PO DAILY 06/19/23 01/07/25 ferrous sulfate 325 mg (65 mg 650 mg PO DAILY 10/14/23 01/07/25 iron) tablet isosorbide mononitrate 30 mg 0 mg PO QAM 01/07/25 01/07/25 tablet,extended release 24 hr pantoprazole 40 mg tablet,delayed 0 mg PO QAM 01/07/25 01/07/25 release (Protonix) vitamin B complex 1 tab PO QAM 01/07/25 01/07/25 Previous Rx's Medication Instructions Recorded nitroglycerin 0.4 mg sublingual 0.4 mg sublingual Q5M PRN chest 04/29/23 tablet pain #25 tabs amlodipine 2.5 mg tablet 2.5 mg PO DAILY #90 tabs 01/19/24 albuterol sulfate 90 mcg/actuation 2 puff inhalation QID PRN 01/27/24 aerosol inhaler (Ventolin HFA) shortness of breath or wheezing #18 grams apixaban 5 mg tablet (Eliquis) 5 mg PO BID #180 tabs 03/25/24 fenofibrate 54 mg tablet 54 mg PO QAM #90 tabs 03/29/24 mirabegron 50 mg tablet,extended 50 mg PO QAM #90 tabs 05/28/24 release 24 hr (Myrbetriq) rosuvastatin 40 mg tablet (Crestor) 40 mg PO DAILY #90 tabs 07/13/24 escitalopram oxalate 20 mg tablet 20 mg PO QAM #90 tabs 07/16/24 (Lexapro) bupropion HCl 300 mg 24 hr tablet, 300 mg PO QAM #90 tabs 07/19/24 extended release metformin 500 mg tablet 500 mg PO BID #200 tabs 08/04/24 fluticasone fur. 200 mcg-umeclid 1 inh inhalation DAILY #180 ea 08/31/24 62.5 mcg-vilant 25 mcg inhalat.powder (Trelegy Ellipta) losartan 50 mg tablet 50 mg PO DAILY #90 tabs 09/14/24 ibandronate 150 mg tablet 150 mg PO MONTHLY #3 tabs 09/24/24 montelukast 10 mg tablet 10 mg PO QPM #90 tabs 10/27/24 (Singulair) Auto Titrating CPAP #1 ea 11/15/24 metoprolol tartrate 50 mg tablet 50 mg PO BID #180 tabs 11/22/24 lorazepam 0.5 mg tablet 0.5 mg PO TID PRN anxiety or 11/25/24 restless legs #90 tabs blood sugar diagnostic (Accu-Chek #100 ea 12/04/24 Sandy Plus test strips) blood sugar diagnostic (OneTouch #100 ea 12/28/24 Ultra Test strips) Results & Data (ED) Vital Signs Vital Signs - 24 hr 01/07/25 08:55 01/07/25 09:20 01/07/25 09:20 Temperature 36.6 C 37.5 C Temperature Source Temporal Artery Scan Pulse Rate 111 H 134 H Pulse Rate [Right Finger] 124 H Pulse Strength [Right Carotid] Normal Respiratory Rate 18 28 H 24 Respiratory Effort / Characteristics Non-Labored Spontaneous Splinting (from pain) Respiratory Depth Normal Respiratory Pattern Regular Blood Pressure 137/72 110/85 Blood Pressure [Right Arm] 110/85 Blood Pressure Mean 93 Blood Pressure Mean [Right Arm] 93 Blood Pressure Position [Right Arm] Pulse Oximetry 89 L 88 L 90 Oxygen Delivery Method Room Air Room Air Room Air Oxygen Flow Rate 0 Sepsis Recent Fever Within 48 Hours No Sepsis New/Unexplained Change in Mental Status N/A Sepsis Action Taken by Nursing No Action Required Pulse Oximetry Post Tiitration 01/07/25 09:20 01/07/25 09:22 01/07/25 09:44 Temperature Temperature Source Pulse Rate 137 H Pulse Rate [Right Finger] Pulse Strength [Right Carotid] Respiratory Rate Respiratory Effort / Characteristics Respiratory Depth Respiratory Pattern Blood Pressure Blood Pressure [Right Arm] Blood Pressure Mean Blood Pressure Mean [Right Arm] Blood Pressure Position [Right Arm] Pulse Oximetry 88 L 88 L Oxygen Delivery Method Room Air Nasal Cannula Oxygen Flow Rate 2 Sepsis Recent Fever Within 48 Hours Sepsis New/Unexplained Change in Mental Status Sepsis Action Taken by Nursing Pulse Oximetry Post Tiitration 94 01/07/25 09:48 01/07/25 10:08 01/07/25 10:20 Temperature Temperature Source Pulse Rate Pulse Rate [Right Finger] 116 H 112 H 126 H Pulse Strength [Right Carotid] Respiratory Rate 20 24 24 Respiratory Effort / Characteristics Non-Labored Spontaneous Non-Labored Spontaneous Non-Labored Spontaneous Respiratory Depth Normal Normal Normal Respiratory Pattern Regular Regular Regular Blood Pressure Blood Pressure [Right Arm] 135/87 108/82 135/102 H Blood Pressure Mean Blood Pressure Mean [Right Arm] 103 90 113 Blood Pressure Position [Right Arm] Pulse Oximetry 94 94 94 Oxygen Delivery Method Nasal Cannula Nasal Cannula Nasal Cannula Oxygen Flow Rate 2 2 2 Sepsis Recent Fever Within 48 Hours Sepsis New/Unexplained Change in Mental Status Sepsis Action Taken by Nursing Pulse Oximetry Post Tiitration 01/07/25 10:30 01/07/25 12:07 01/07/25 13:17 Temperature Temperature Source Pulse Rate 100 H Pulse Rate [Right Finger] 118 H 106 H Pulse Strength [Right Carotid] Respiratory Rate 30 H 17 Respiratory Effort / Characteristics Non-Labored Spontaneous Respiratory Depth Normal Respiratory Pattern Regular Blood Pressure Blood Pressure [Right Arm] 132/95 118/76 Blood Pressure Mean Blood Pressure Mean [Right Arm] 107 90 Blood Pressure Position [Right Arm] Semi-fowlers Pulse Oximetry 94 91 Oxygen Delivery Method Nasal Cannula Room Air Oxygen Flow Rate 2 Sepsis Recent Fever Within 48 Hours Sepsis New/Unexplained Change in Mental Status Sepsis Action Taken by Nursing Pulse Oximetry Post Tiitration 01/07/25 13:23 01/07/25 14:00 Temperature Temperature Source Pulse Rate Pulse Rate [Right Finger] 103 H 105 H Pulse Strength [Right Carotid] Respiratory Rate 24 18 Respiratory Effort / Characteristics Respiratory Depth Respiratory Pattern Blood Pressure Blood Pressure [Right Arm] 117/83 116/73 Blood Pressure Mean Blood Pressure Mean [Right Arm] 94 87 Blood Pressure Position [Right Arm] Semi-fowlers Semi-fowlers Pulse Oximetry 91 90 Oxygen Delivery Method Nasal Cannula Room Air Oxygen Flow Rate 1 Sepsis Recent Fever Within 48 Hours Sepsis New/Unexplained Change in Mental Status Sepsis Action Taken by Nursing Pulse Oximetry Post Tiitration Laboratory Data 01/07/25 09:26 01/07/25 09:26 Lab Results 01/07/25 01/07/25 01/07/25 Range/Units 09:26 12:19 14:23 WBC 6.97 (4.8-10.8) K/ul RBC 3.55 L (4.20-5.40) M/uL Hgb 10.7 L (12.0-16.0) g/dl Hct 33.0 L (37.0-47.0) % MCV 93.0 (80.0-100.0) fL MCH 30.1 (25.0-34.0) pg MCHC 32.4 (32.0-36.0) g/dL RDW Std Deviation 46.9 H (36.4-46.3) fL RDW Coeff of Ambreen 13.7 (11.5-14.5) % Plt Count 319 (130-400) K/uL MPV 9.5 (9.4-12.4) fL Immature Gran % (Auto) 0.3 % Neut % (Auto) 79.0 % Lymph % (Auto) 12.3 % [place] % (Auto) 6.7 % Eos % (Auto) 1.3 % Baso % (Auto) 0.4 % Neut # (Auto) 5.50 (1.40-6.50) K/uL Lymph # (Auto) 0.86 L (1.20-3.40) K/uL [place] # (Auto) 0.47 (0.11-0.59) K/uL Eos # (Auto) 0.09 (0.00-0.50) K/uL Baso # (Auto) 0.03 (0.00-0.20) K/uL Immature Gran # (Auto) 0.02 (0.01-0.20) K/uL PT 12.2 H (9.0-12.0) Seconds INR 1.1 (0.9-1.1) APTT 30 (21-31) Seconds PTT Ratio 1.1 Sodium 139 (136-145) mmol/L Potassium 3.8 (3.5-5.1) mmol/L Chloride 105 (98-107) mmol/L Carbon Dioxide 27 (21-32) mmol/L Anion Gap 7 (3-11) BUN 21 (6-23) mg/dl Creatinine 1.00 (0.6-1.2) mg/dl Est Cr Clr Drug Dosing 43.2 ml/min eGFR 57.66 BUN/Creatinine Ratio 21.0 H (10-20) Glucose 162 H (70-99(Fasting)) mg/dl Calcium 10.0 (8.6-10.3) mg/dl Magnesium 1.5 L (1.7-2.4) mg/dl Total Bilirubin 0.4 (0.2-1.0) mg/dl AST 11 L (13-39) U/L ALT 9 (7-52) U/L Alkaline Phosphatase 23 L (34-104) U/L Total Protein 6.8 (6.0-8.3) gm/dl Albumin 3.8 (3.4-5.0) gm/dl Globulin 3.0 (2.5-4.0) gm/dl Albumin/Globulin Ratio 1.3 (0.9-2) Lipase 18 (11-82) U/L Urine Color Yellow Urine Appearance Clear (Clear) Urine pH 7.0 (4.5-7.5) Ur Specific [place] 1.029 (1.000-1.030) Urine Protein Negative (Negative) Urine Glucose (UA) Negative (Negative) Urine Ketones Negative (Negative) Urine Blood Negative (Negative) Urine Nitrite Positive A (Negative) Urine Bilirubin Negative (Negative) Urine Urobilinogen Negative (Negative) Ur Leukocyte Esterase 2+ H (Negative) Urine WBC (Auto) 21-50 H (0-5) /hpf Urine RBC (Auto) 0-2 (0-2) /hpf U Hyaline Cast (Auto) 0-2 (0-2) /lpf U Epithel Cells (Auto) 0-2 (0-2) /hpf Urine Bacteria (Auto) 4+ H (None Seen) Adenovirus (PCR) Not Detected (NotDetected) B. pertussis DNA (PCR) Not Detected (NotDetected) B.parapertussis DNA PCR Not Detected (NotDetected) C. pneumoniae DNA (PCR) Not Detected (NotDetected) Coronavirus OC43 (PCR) DETECTED A (NotDetected) Coronavirus HKU1 (PCR) Not Detected (NotDetected) Coronavirus 229E (PCR) Not Detected (NotDetected) SARS-CoV-2 (PCR) Not Detected (NotDetected) Coronavirus NL63 (PCR) Not Detected (NotDetected) Human Metapneumovir PCR Not Detected (NotDetected) Influenza Type A (PCR) Not Detected (NotDetected) Influenza Type B (PCR) Not Detected (NotDetected) M. pneumoniae (PCR) Not Detected (NotDetected) Parainfluenza 1 (PCR) Not Detected (NotDetected) Parainfluenza 2 (PCR) Not Detected (NotDetected) Parainfluenza 3 (PCR) Not Detected (NotDetected) Parainfluenza 4 (PCR) Not Detected (NotDetected) RSV (PCR) Not Detected (NotDetected) Entero/Rhino (PCR) Not Detected (NotDetected) Administered Medications Magnesium Sulfate/Dextrose (Magnesium Sulfate / D5w) 1 gm in 100 mls @ 50 mls/hr IV Q2H DONTE Stop: 01/07/25 18:14 Last Admin: 01/07/25 16:28 Dose: 50 mls/hr Documented By: Infusion: 01/07/25 16:28 Dose: Infused Documented By: Admin: 01/07/25 14:40 Dose: 50 mls/hr Documented By: TABATHA Discontinued Medications Diltiazem HCl (Diltiazem Hcl 5 Mg/Ml 5 Ml Vial) 10 mg IV NOW STA Stop: 01/07/25 12:20 Last Admin: 01/07/25 12:23 Dose: 10 mg Documented By: TABATHA Co-signed By: PAUL Diltiazem HCl (Diltiazem Hcl 5 Mg/Ml 5 Ml Vial) 10 mg IV NOW STA Stop: 01/07/25 13:21 Last Admin: 01/07/25 13:24 Dose: 10 mg Documented By: TABATHA Co-signed By: PAUL Ioversol (Optiray 320 100ml) 94 ml IV ONCE ONE Stop: 01/07/25 10:10 Last Admin: 01/07/25 10:10 Dose: 94 ml Documented By: JEROME Metoprolol Tartrate (Metoprolol Tartrate 1 Mg/Ml Vial) 5 mg IV NOW STA Stop: 01/07/25 15:42 Last Admin: 01/07/25 15:51 Dose: 5 mg Documented By: SAVANA Imaging Data Radiologist's Impression: Chest X-Ray 01/07/25 09:10 XR chest 1V portable CLINICAL HISTORY: Hypoxic . Fall. COMPARISON STUDY: 08/06/2024 FINDINGS: There is stable prominent cardiomegaly with mild pulmonary vascular congestion. There are mitral valvular calcifications. There is mild pulmonary interstitial prominence. No lobar consolidation or pleural effusion. No pneumothorax. No grossly displaced rib fracture seen. IMPRESSION: Mild CHF. ACT 112: Negative or not required by law. Electronically signed by: Pranav Stephenson M.D. 01/07/2025 9:47 AM Pelvis X-Ray 01/07/25 09:10 XR pelvis 1-2V routine CLINICAL HISTORY: fall COMPARISON: CT of the abdomen and pelvis May 10, 2023. FINDINGS: Sacroiliac joints and symphysis pubis are intact. There are no fractures within the pelvis or hips. Hip joint spaces are preserved. There is left hip osteophytosis. There are no osseous lesions. IMPRESSION: No fractures within the pelvis or hips. ACT 112: Negative or not required by law. Electronically signed by: Gorge Penny M.D. 01/07/2025 10:11 AM Abdomen/Pelvis CT 01/07/25 09:19 CT OF THE ABDOMEN AND PELVIS WITH CONTRAST CLINICAL HISTORY: Trauma, R buttocks lac/ecchymosis COMPARISON STUDY: CT of the abdomen and pelvis May 10, 2023. Pelvis radiograph performed earlier today. TECHNIQUE: Following IV administration of 94 mL of Optiray, axial images of the abdomen and pelvis were obtained from the lung bases to the proximal femurs. Images were reviewed in the axial, sagittal, and coronal planes. IV contrast was administered without complication. Automated exposure control was utilized for the study. A dose lowering technique was utilized adhering to the principles of ALARA. FINDINGS: No hemoperitoneum or pneumoperitoneum is present. There is no evidence for traumatic injury to the liver, spleen, adrenal glands, kidneys or pancreas multiple water attenuation renal lesions represent cysts. Several subcentimeter renal lesions are too small to characterize. Biliary ductal dilatation is similar to prior exam and likely related to cholecystectomy. Extensive aortoiliac atherosclerotic plaque is again noted. There is colonic diverticulosis. No evidence for acute diverticulitis. There is no evidence for a bowel obstruction. The bladder is mildly distended. Minimal linear hyperdensity within the left groin on image 212 is present. This may reflect trace hemorrhage. No acute fractures within the lumbar spine, pelvis or hips are identified. Chest CT will be reported separately. Mild cortical irregularity of the S3 vertebral bodies likely chronic. IMPRESSION: 1. No evidence for traumatic injury to the solid abdominal viscera. 2. Small linear hyperdensity within the left groin. This may reflect trace hemorrhage. No active extravasation. No large hematoma. ACT 112: Negative or not required by law. Electronically signed by: Gorge Penny M.D. 01/07/2025 11:[address] 01/07/25 09:19 CT cervical spine wo con CT DOSE: 2966.05 mGy.cm CLINICAL HISTORY: 79 years-old Female with Trauma, L facial trauma. Acute head and neck injury status post trauma COMPARISON: CT chest enhanced exams of same day, chest CT 08/24/2024, CT cervical spine 05/10/2023 TECHNIQUE: Multiple axial CT images of the cervical spine were obtained without contrast. A dose lowering technique was utilized adhering to the principles of ALARA. FINDINGS: Alignment of the cervical spine is anatomic. Vertebral body heights are maintained. No acute cervical spine fracture or subluxation is present. There is no prevertebral edema. Facet joints are intact. A lucent lesion within the C3 vertebral body is unchanged and likely benign. Moderate multilevel degenerative changes within the cervical spine are present. Minimal superior endplate compression of less than 20% with sclerosis involves the T2 vertebral body with similar appearance of the inferior endplate of C7. These findings are unchanged from the 08/24/2024 exam. The cervical soft tissues appear unremarkable. The visualized lung apices appear clear. IMPRESSION: 1. No acute cervical spine fracture or subluxation. 2. Unchanged appearance of the mild chronic C7 and T2 compression deformities. ACT 112: Negative or not required by law. The above report was generated using voice recognition software. It may contain grammatical, syntax or spelling errors. Electronically signed by: Fly Diggs M.D. 01/07/2025 10:[address] 01/07/25 09:[address] WITH CONTRAST HISTORY: Trauma, L rib cage pain TECHNIQUE: Multiaxial CT images of the chest were performed following the IV administration of cc of Optiray. A dose lowering technique was utilized adhering to the principles of ALARA. COMPARISON STUDY: 08/24/2024 FINDINGS: There is no pulmonary contusion, pleural effusion, or pneumothorax. No mediastinal hematoma. No evidence of thoracic aortic injury. No pericardial effusion. There are diffuse coronary artery and aortic calcifications. There are a few stable old bilateral rib fractures. Stable mild height loss at a few upper thoracic vertebral bodies. No acute osseous finding seen. IMPRESSION: No acute injury seen in the chest. Otherwise as described. ACT 112: Negative or not required by law. Electronically signed by: Pranav Stephenson M.D. 01/07/2025 10:[address] 01/07/25 09:19 CT head/brain wo con CLINICAL HISTORY: 79 years-old Female with Trauma, L facial trauma. Acute head trauma status post fall TECHNIQUE: Multiple axial CT images of the head were obtained without contrast. A dose lowering technique was utilized adhering to the principles of ALARA. COMPARISON: CT cervical spine of same day, head CT 05/10/2023 FINDINGS: No acute intracranial hemorrhage, midline shift or mass effect is present. The ventricular system is unremarkable. The basal cisterns are patent. A calcified extra-axial lesion adjacent to the left frontal lobe is unchanged suggesting a benign meningioma measuring 12 mm without significant mass effect. No extra- axial collections are present. There are no findings to suggest acute dural sinus thrombosis or acute territorial infarct. No significant calvarial abnormalities are present. Visualized portions of the sinuses and mastoid air cells are clear. Small left frontal scalp, forehead and supraorbital contusions. IMPRESSION: 1. Unchanged appearance of the brain without acute intracranial abnormality identified. 2. No acute calvarial fracture. 3. Small left scalp/facial contusions. ACT 112: Negative or not required by law. The above report was generated using voice recognition software. It may contain grammatical, syntax or spelling errors. Electronically signed by: Fly Diggs M.D. 01/07/2025 10:25 AM Hand X-Ray 01/07/25 09:25 XR hand LT 2V CLINICAL HISTORY: trauma COMPARISON: None FINDINGS: There are moderate scattered degenerative changes. There is chronic lateral subluxation of the first CMC joint. There is a possible nondisplaced fracture versus artifact base of the fifth proximal phalanx. No other acute fracture or dislocation seen. IMPRESSION: Artifact versus nondisplaced fracture fifth proximal phalanx base. No other acute fracture seen. ACT 112: Negative or not required by law. Electronically signed by: rPanav Stephenson M.D. 01/07/2025 10:25 AM Discharge Plan Visit Data Chief Complaint: Trauma Stated Complaint: FELL, LT RIB PAIN, LT HAND EDEMA/PAIN, [facility] Provider: Dafne Ferrer Discharge Problem: Fracture of proximal phalanx of digit of left hand, Atrial flutter with rapid ventricular response, Acute hypoxic respiratory failure Patient Disposition: Admitted As Inpatient Discharge Instructions Interventions: ED Discharge Assessment Last Done: 01/07/25 17:13
[2025-01-07 09:45] LABS: Basophils # (auto) 0.03 K/uL (0.00-0.20); Basophils % (auto) 0.4 %; Eosinophils # (auto) 0.09 K/uL (0.00-0.50); Eosinophils % (auto) 1.3 %; Hemoglobin 10.7 g/dl (12.0-16.0); Immature Granulocytes # (auto) 0.02 K/uL (0.01-0.20); Immature Granulocytes % (auto) 0.3 %; Lymphocytes # (auto) 0.86 K/uL (1.20-3.40); Lymphocytes % (auto) 12.3 %; Mean Corpuscular Hemoglobin 30.1 pg (25.0-34.0); Mean Corpuscular Hgb Conc 32.4 g/dL (32.0-36.0); Mean Platelet Volume 9.5 fL (9.4-12.4); Monocytes # (auto) 0.47 K/uL (0.11-0.59); Monocytes % (auto) 6.7 %; Platelet Count 319 K/uL (130-400); RDW Coefficient of Variation 13.7 % (11.5-14.5); RDW Standard Deviation 46.9 fL (36.4-46.3); Red Blood Count 3.55 M/uL (4.20-5.40); White Blood Count 6.97 K/ul (4.8-10.8)
--- NOTE | 2025-01-07 09:48 | XRay Report ---
XR chest 1V portable CLINICAL HISTORY: Hypoxic . Fall. COMPARISON STUDY: 08/06/2024 FINDINGS: There is stable prominent cardiomegaly with mild pulmonary vascular congestion. There are m itral valvular calcifications. There is mild pulmonary interstitial prominence. No lobar consolidatio n or pleural effusion. No pneumothorax. No grossly displaced rib fracture seen. IMPRESSION: Mild CHF. ACT 112: Negative or not required by law. Electronically signed by: Pranav Stephenson M.D. 01/07/2025 9:47 AM
[2025-01-07 10:07] LABS: Albumin Globulin Ratio 1.3 (0.9-2); Albumin Level 3.8 gm/dl (3.4-5.0); Bilirubin,Total 0.4 mg/dl (0.2-1.0); Creatinine Clr Calc Pharmacy 43.2 ml/min; Potassium 3.8 mmol/L (3.5-5.1); Total Protein 6.8 gm/dl (6.0-8.3)
--- OUTSIDE RECORDS SUMMARY | 2025-01-07 10:08 | External Medical Summary | Summary of Care ---
Author Name Unknown Organization [facility] Address [address] [place] [address] Phone [phone] Care Team Providers Care Consulting Application Engineer Name Role Phone Rico Arevalo MD Primary Care Provider [phone] Reason for Visit * Reason Onset Date Comments Referral Requested by Specialist 12/30/2024 Podiatry Referral Request Encounter Details Date Type Department Care Team ([facility] st Contact Info) Description 12/30/2024 Telephone Podiatry, [facility] [address] [place] [address] Fabi Nuñez DPM [address] [place] [address] Referral Requested by Specialist (Podiatry... Allergies Active Allergy Reactions Criticality Noted Date Comments Sulfamethoxazole-Trimethopr im 06/05/2023 Codeine 06/05/2023 vomiting and hallucinations Propoxyphene Napsylate 04/12/2003 Sulfamethoxazole High 01/07/2023 Other reaction(s): Rash documented as of this encounter (statuses as of 12/30/2024) Medications MULTIVITAMINS OR CAPS Take 1 Capsule by mouth in the morning. 0 3 Active METFORMIN HCL 500 MG PO TABS Take 1 Tablet by mouth 2 times a day with morning and evening meals. Active ESCITALOPRAM OXALATE 20 MG PO TABS Take 1 Tablet by mouth in the morning. Active PANTOPRAZOLE SODIUM 40 MG PO TBEC Take 1 Tablet by mouth in the morning. Active LORATADINE 10 MG PO TABS Take 1 Tablet by mouth in the morning. Active cholecalciferol (VITAMIN D3) 400 UNIT TABS Take 1 Tablet by mouth in the morning. Active fluticasone (FLONASE) 50 MCG/ACT nasal spray Administer 1 [place] into nostril in the morning. Active Magnesium Oxide 400 (240 Mg) MG Tablet Take 1 Tablet by mouth every evening. Active montelukast (SINGULAIR) 10 MG Tablet Take 1 Tablet by mouth at bedtime. Active Fluticasone-Umec lidin-Vilant 100-62.5-25 MCG/ACT Aerosol Powder Breath Activated Inhale 1 Puff by mouth in the morning. Active Mirabegron ER 50 MG Oral Tablet Extended Release 24 Hour Take 1 Tablet by mouth in the morning. Active Eliquis 5 MG Oral Tablet 2 Active buPROPion HCl ER (XL) 300 MG Oral Tablet Extended Release 24 Hour (Wellbutrin XL) Take 1 Tablet by mouth in the morning. 2 Active Fluorometholone 0.1 % Ophthalmic Suspension Instill 1 Drop into both eyes in the morning. 2 Active Losartan Potassium 50 MG Oral Tablet Take 1 Tablet by mouth in the morning. 2 Active LORazepam 0.5 MG Oral Tablet (Ativan) 1 Tablet 3 times a day as needed for Anxiety, Sleep or Other (restless leg). 3 Active Ibandronate Sodium 150 MG Oral Tablet (Boniva) Take 1 Tablet by mouth every 30 days. 2 Active Nitroglycerin 0.4 MG Sublingual Tablet Sublingual (Nitrostat) Place 1 Tablet under the tongue every 5 minutes as needed for Pain, Chest. 3 Active amLODIPine Besylate 2.5 MG Oral Tablet (Norvasc) Take 1 Tablet by mouth in the morning. Active Acetaminophen 325 MG Oral Tablet Take 1 Tablet by mouth every 6 hours as needed. Active pramipexole 0.0625 MG OR Tablet Take 1 Tablet by mouth at bedtime. Pt started 06/25/2023 for restless leg 0.125mg Active Vitamin B Complex Oral Tablet Take 1 Tablet by mouth in the morning. Active Fenofibrate 54 MG Oral Tablet (Lofibra) Take 1 Tablet by mouth in the morning. Active Isosorbide Mononitrate ER 30 MG Oral Tablet Extended Release 24 Hour (Imdur) Take 1 Tablet by mouth in the morning. Active Albuterol Sulfate HFA 108 (90 Base) MCG/ACT Inhalation Aerosol Solution Inhale 2 Puffs by mouth every 6 hours as needed. Active Rosuvastatin Calcium 40 MG Oral Tablet (Crestor) Take 1 Tablet by mouth every afternoon. 3 Active Clopidogrel Bisulfate 75 MG Oral Tablet (Plavix)Indicati ons:A-fib (HCC) Take 1 Tablet by mouth in the morning. 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 CAD (coronary artery disease) 06/20/2023 Paroxysmal atrial fibrillation 06/20/2023 Type 2 diabetes mellitus 06/20/2023 Status post primary angioplasty with coronary st ent 06/20/2023 Stage 3a chronic kidney disease 06/20/2023 group home current use of anticoagulant therapy 0 06/20/2023 Chronic asthma 06/20/2023 SUDHAKAR on CPAP 11/06/2015 Atypical ductal hyperplasia of breast 09/22/2013 Breast calcification, left 08/30/2013 Rosacea 04/28/2003 Actinic keratosis 04/12/2003 documented as of this encounter (statuses as of 12/30/2024) Resolved Problems Problem Noted Date Diagnosed Date Resolved Date CR (acute kidney injury) 06/20/2023 Encounter for examination fo r normal comparison and control in clinical research program 05/25/2018 07/03/2020 Overview (03/19/2021): DO NOT DELETE [facility] DETECT Study: Project # [id number], Cotton Ginner: Pranav Gray, PhD. SUMMARY: Goal: Establish test characteristics (sensitivity, specificity, PPV, NPV) of a circulating tumor DNA (ctDNA)-based test for cancer. Hypothesis: Circulating tumor DNA (ctDNA) and elevated protein biomarkers (together, the marker panel) can be detected in asymptomatic individuals with early cancer. Specific Aim 1: Determine the prevalence of a positive marker panel test in a prospective clinical cohort of 10,000 asymptomatic women ages 65 to 75 years. Specific Aim 2: Determine the sensitivity, specificity, positive predictive value (PPV) and negative predictive value (NPV) of a marker panel test to identify histologically proven cancers that develop within 5-years of the marker panel evaluation. CONTACTS: During normal business hours, contact study staff at ; after hours Cotton Ginner via the [facility] hospital picking belt operator . Please contact study team before resolving/deleting from patients problem list. Study phone number: [phone]. Diagnosis changed due to Research Module. Go to [employer] for study details. Encounter for examination fo r normal comparison and control in clinical research program 05/25/2018 08/01/2022 Overview (03/19/2021): DO NOT DELETE - [facility] Study: Project # [id number], Cotton Ginner: Ishaan Novoa, MS, MPH. SUMMARY: Goal: Establish test characteristics (sensitivity, specificity, PPV, NPV) of a circulating tumor DNA (ctDNA)-based test for cancer. - Hypothesis: Circulating tumor DNA (ctDNA) and elevated protein biomarkers (together, the marker panel) can be detected in asymptomatic individuals with early cancer. - Specific Aim 1: Determine the prevalence of a positive marker panel test in a prospective clinical cohort of 10,000 asymptomatic women ages 65 to 75 years. - Specific Aim 2: Determine the sensitivity, specificity, positive predictive value (PPV) and negative predictive value (NPV) of a marker panel test to identify histologically proven cancers that develop within 5-years of the marker panel evaluation. - CONTACTS: During normal business hours, contact study staff at ; after hours Cotton Ginner via the [facility] hospital picking belt operator . - Please contact study team before resolving/deleting from patients problem list. Study phone number: [phone]. Diagnosis changed due to Research Module. Go to [employer] for study details. documented as of this encounter (statuses as of 12/30/2024) Immunizations Name Administration Dates Next Due COVID-19 mRNA, LNP-s, No Pre serve, 2-Dose Series (PacketFront) 02/06/2021,01/09/2021 documented as of this encounter Social History Tobacco Use Types Packs/Day Years Used Date Smoking Tobacco: Former Cigarettes 0.5 40 1 - 09/02/1997 Smokeless Tobacco: Never Alcohol Use Standard Drinks/Week Comments Yes 0 (1 standard drink = 0.6 oz pur e alcohol) rarely Comments No Sex and Gender Information Value Date Recorded Sex Assigned at Not on file Legal Sex Female 5:44 AM EST Gender Identity Not on file Sexual Orientation Not on file 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 Answer Date of Assessment Author No 06/05/2023 11:47 PM Zuleyma Rivera RN * Are you blind or do you have serious difficulty seeing, even when wearing glasses? Answer Date of Assessment Author No 06/05/2023 11:47 PM SOPHIAT Zuleyma Obando RN * Do you have serious difficulty walking or climbing stairs? (5 years old or older) Answer Date of Assessment Author No 06/20/2023 1:02 PM EDT Claudia Ford RN * Do you have difficulty dressing or bathing? (5 years old or older) Answer Date of Assessment Author No 06/05/2023 11:47 PM SOPHIAT Zuleyma Obando RN * Because of a physical, mental, or emotional condition, do you have difficulty doing errands alone such as visiting a doctors office or shopping? (15 years old or older) Answer Date of Assessment Author No 06/05/2023 11:47 PM Zuleyma Rivera RN documented as of this encounter Mental Status * Because of a physical, mental, or emotional condition, do you have serious difficulty concentrating, remembering, or making decisions? (5 years old or older) Answer Entry Date Author No 06/05/2023 11:47 PM Zuleyma Rivera RN documented in this encounter Miscellaneous Notes * Telephone Encounter - Neda Barillas OSA - 12/30/2024 9:20 AM EST Podiatry referral request was faxed to PCP. documented in this encounter Plan of Treatment Upcoming Encounters Date Type Department Care Team (Late st Contact Info) Description 03/15/2025 11:00 AM EDT Office Visit Podiatry, [facility] [address] [address] Fabi Nuñez, [place] [address] [id number] Health Maintenance Due Date Last Done Comments Depression Screening 1957 Albumin/Creatinine Ratio 1964 Diabetic Eye Exam 1964 Diabetic Foot Exam 1964 Hepatitis C Screening 1963 DTap/Tdap Vaccines (1 - Tdap) 1965 Hepatitis B Vaccine (2 of 3 - 19+ 3-dose series) 07/08/2011 06/10/2011 DXA Scan 02/11/2023 02/12/2016, 03/03/2002 *SPIROMETRY ONCE FOR ASTHMA-ADULT 06/23/2023 HbA1c 12/21/2023 06/20/2023, 06/06/2023 GFR 02/27/2024 08/29/2023, 06/01, 06/19/2023, Additional history exists CKD PHOS USE SMARTSET 13955 06/05/2024 06/05/2023 COVID-19 Vaccine ( season) 2024 2022, 05/14/2022, 12/03/2021, Additional history exists Influenza Vaccine (FLU shot) (#1) 2024 08/01/2020, 09/10/2019 CKD HGB USE SMARTSET 99380 08/29/202408/29, 08/29/2023, 06/20/2023, Additional history exists Zoster Vaccines Completed 07/28/2020, 0208/2020, 09/20/2010 Pneumococcal Vaccine: 50+ Years Completed 08/01/2023, 04/03/2018, 09/16/2014, Additional history exists HPV (Gardasil) Vaccine Aged Out No lo nger eligible based on patient's age to complete this topic MENINGOCOCCAL (MENACTRA/MENVEO) Aged Out No longer eligible based on patient's age to complete this topic documented as of this encounter Medical Devices Implanted Type [employer] Intern Device Identifier Shelf Expiration Date Model / Serial / Lot Stent Danielle Xd Mr [id number] - [id number] Implanted:Qty: 1 on 06/05/2023 by Pro Abdalla MD at [facility] [employer] [id number] 05/07/2024 [id number] 300 / / [id number] Stent Danielle Xd Mr [id number] - [id number] Implanted:Qty: 1 on 06/05/2023 by Pro Abdalla MD at [facility] [place] [facility] [employer] [id number] 06/09/2024 [id number] 300 / / [id number] documented as of this encounter Advance Directives * Full Code (Latest Code Status on File) Date Activated Date Inactivated Comments 06/19/2023 10:02 PM 06/20/2023 8:04 PM This order reflects the patients wishes and were consensually agreed upon. Question Answer Comments Discussion of Advance Directives occurred with: Patient * Full Code Date Activated Date Inactivated Comments 06/05/2023 2:41 PM 06/06/2023 7:28 PM This order ref lects the patients wishes and were consensually agreed upon. Question Answer Comments Discussion of Advance Direct ana occurred with: Not Discussed due to patient's condition Does the patient have a Living Will? No Does the patient have Health Care Power of [employer] Labourer? No Care Teams Consulting Application Engineer Relationship Specialty Start Date End Date Rico Arevalo MD [address] [place] [address] PCP - General Family Medicine 12/13/24 documented as of this encounter
[2025-01-07] MEDS: OPTIRAY 320 100ml IV ONE (10:10)
--- NOTE | 2025-01-07 10:12 | XRay Report ---
XR pelvis 1-2V routine CLINICAL HISTORY: fall COMPARISON: CT of the abdomen and pelvis May 10, 2023. FINDINGS: Sacroiliac joints and symphysis pubis are intact. There are no fractures within the pelvis or hips. Hip joint spaces are preserved. There is left hip osteophytosis. There are no osseous lesio ns. IMPRESSION: No fractures within the pelvis or hips. ACT 112: Negative or not required by law. Electronically signed by: Gorge Penny M.D. 01/07/2025 10:11 AM
[2025-01-07 10:16] LABS: INR 1.1 (0.9-1.1); Partial Thromboplastin Ratio 1.1; Partial Thromboplastin Time 30 Seconds (21-31); Prothrombin Time 12.2 Seconds (9.0-12.0)
--- NOTE | 2025-01-07 10:25 | CT Scan Report ---
CT cervical spine wo con CT DOSE: 2966.05 mGy.cm CLINICAL HISTORY: 79 years-old Female with Trauma, L facial trauma. Acute head and neck injury statu s post trauma COMPARISON: CT chest enhanced exams of same day, chest CT 08/24/2024, CT cervical spine 05/10/2023 TECHNIQUE: Multiple axial CT images of the cervical spine were obtained without contrast. A dose low ering technique was utilized adhering to the principles of ALARA. FINDINGS: Alignment of the cervical spine is anatomic. Vertebral body heights are maintained. No acut e cervical spine fracture or subluxation is present. There is no prevertebral edema. Facet joints are intact. A lucent lesion within the C3 vertebral body is unchanged and likely benign. Moderate multil evel degenerative changes within the cervical spine are present. Minimal superior endplate compressio n of less than 20% with sclerosis involves the T2 vertebral body with similar appearance of the infer ior endplate of C7. These findings are unchanged from the 08/24/2024 exam. The cervical soft tissues appear unremarkable. The visualized lung apices appear clear. IMPRESSION: 1. No acute cervical spine fracture or subluxation. 2. Unchanged appearance of the mild chronic C7 and T2 compression deformities. ACT 112: Negative or not required by law. The above report was generated using voice recognition software. It may contain grammatical, syntax o r spelling errors. Electronically signed by: Fly Diggs M.D. 01/07/2025 10:22 AM
--- NOTE | 2025-01-07 10:26 | XRay Report ---
XR hand LT 2V CLINICAL HISTORY: trauma COMPARISON: None FINDINGS: There are moderate scattered degenerative changes. There is chronic lateral subluxation of the first CMC joint. There is a possible nondisplaced fracture versus artifact base of the fifth pro ximal phalanx. No other acute fracture or dislocation seen. IMPRESSION: Artifact versus nondisplaced fracture fifth proximal phalanx base. No other acute fractur e seen. ACT 112: Negative or not required by law. Electronically signed by: Pranav Stephenson M.D. 01/07/2025 10:25 AM
--- NOTE | 2025-01-07 10:27 | CT Scan Report ---
CT head/brain wo con CLINICAL HISTORY: 79 years-old Female with Trauma, L facial trauma. Acute head trauma status post fa ll TECHNIQUE: Multiple axial CT images of the head were obtained without contrast. A dose lowering tech nique was utilized adhering to the principles of ALARA. COMPARISON: CT cervical spine of same day, head CT 05/10/2023 FINDINGS: No acute intracranial hemorrhage, midline shift or mass effect is present. The ventricular system is unremarkable. The basal cisterns are patent. A calcified extra-axial lesion adjacent to the left fron joshua lobe is unchanged suggesting a benign meningioma measuring 12 mm without significant mass effect. No extra-axial collections are present. There are no findings to suggest acute dural sinus thrombosi s or acute territorial infarct. No significant calvarial abnormalities are present. Visualized portio ns of the sinuses and mastoid air cells are clear. Small left frontal scalp, forehead and supraorbita l contusions. IMPRESSION: 1. Unchanged appearance of the brain without acute intracranial abnormality identified. 2. No acute calvarial fracture. 3. Small left scalp/facial contusions. ACT 112: Negative or not required by law. The above report was generated using voice recognition software. It may contain grammatical, syntax o r spelling errors. Electronically signed by: Fly Diggs M.D. 01/07/2025 10:25 AM
--- NOTE | 2025-01-07 10:34 | CT Scan Report ---
CHEST CT WITH CONTRAST HISTORY: Trauma, L rib cage pain TECHNIQUE: Multiaxial CT images of the chest were performed following the IV administration of cc of Optiray. A dose lowering technique was utilized adhering to the principles of ALARA. COMPARISON STUDY: 08/24/2024 FINDINGS: There is no pulmonary contusion, pleural effusion, or pneumothorax. No mediastinal hematoma . No evidence of thoracic aortic injury. No pericardial effusion. There are diffuse coronary artery a nd aortic calcifications. There are a few stable old bilateral rib fractures. Stable mild height loss at a few upper thoracic vertebral bodies. No acute osseous finding seen. IMPRESSION: No acute injury seen in the chest. Otherwise as described. ACT 112: Negative or not required by law. Electronically signed by: Pranav Stephenson M.D. 01/07/2025 10:31 AM
--- NOTE | 2025-01-07 11:08 | CT Scan Report ---
CT OF THE ABDOMEN AND PELVIS WITH CONTRAST CLINICAL HISTORY: Trauma, R buttocks lac/ecchymosis COMPARISON STUDY: CT of the abdomen and pelvis May 10, 2023. Pelvis radiograph performed earlier to day. TECHNIQUE: Following IV administration of 94 mL of Optiray, axial images of the abdomen and pelvis we re obtained from the lung bases to the proximal femurs. Images were reviewed in the axial, sagittal, and coronal planes. IV contrast was administered without complication. Automated exposure control wa s utilized for the study. A dose lowering technique was utilized adhering to the principles of ALARA . FINDINGS: No hemoperitoneum or pneumoperitoneum is present. There is no evidence for traumatic injury to the liver, spleen, adrenal glands, kidneys or pancreas multiple water attenuation renal lesions r epresent cysts. Several subcentimeter renal lesions are too small to characterize. Biliary ductal dil atation is similar to prior exam and likely related to cholecystectomy. Extensive aortoiliac atherosc lerotic plaque is again noted. There is colonic diverticulosis. No evidence for acute diverticulitis. There is no evidence for a bowel obstruction. The bladder is mildly distended. Minimal linear hyperd ensity within the left groin on image 212 is present. This may reflect trace hemorrhage. No acute fra ctures within the lumbar spine, pelvis or hips are identified. Chest CT will be reported separately. Mild cortical irregularity of the S3 vertebral bodies likely chronic. IMPRESSION: 1. No evidence for traumatic injury to the solid abdominal viscera. 2. Small linear hyperdensity within the left groin. This may reflect trace hemorrhage. No active extr avasation. No large hematoma. ACT 112: Negative or not required by law. Electronically signed by: Gorge Penny M.D. 01/07/2025 11:07 AM
[2025-01-07] MEDS: dilTIAZem HCl 5 MG/ML 5 ML VIAL IV STA ×2 (12:23→13:24)
[2025-01-07 12:52] LABS: Appearance Urine Clear (Clear); Bacteria Urine Automated 4+ (None Seen); Bilirubin Urine Negative (Negative); Blood Urine Negative (Negative); Cast Urine Automated 0-2 /lpf (0-2); Color Urine Yellow; Epithelial Cell Urine Auto 0-2 /hpf (0-2); Glucose Urine UA Negative (Negative); Ketones Urine Negative (Negative); Leukocyte Esterase Urine 2+ (Negative); Nitrite Urine Positive (Negative); Protein Urine Negative (Negative); RBC Urine Automated 0-2 /hpf (0-2); Specific Gravity Urine 1.029 (1.000-1.030); Urobilinogen Urine Negative (Negative); WBC Urine Automated 21-50 /hpf (0-5)
--- NOTE | 2025-01-07 13:36 | Electrocardiogram Report ---
Test Reason : Blood Pressure : */* mmHG Vent. Rate : 104 BPM Atrial Rate : 277 BPM P-R Int : * ms QRS Dur : 92 ms QT Int : 352 ms P-R-T Axes : * -35 11 degrees QTcB Int : 462 ms Atrial flutter with variable A-V block with premature ventricular or aberrantly conducted complexes Left axis deviation Diffuse Minor Nonspecific T wave abnormality Abnormal ECG When compared with ECG of 10-May-2023 12:35, Atrial flutter has replaced Sinus rhythm Vent. rate has increased by 46 bpm Confirmed by David Pryor ([id number]) on 01/07/2025 1:36:14 PM Referred By: REFERRED SELF Confirmed By: David Pryor
[2025-01-07 13:50] LABS: Magnesium 1.5 mg/dl (1.7-2.4)
[2025-01-07] MEDS: MAGNESIUM SULFATE / D5W 1 GM/100 ML BAG IV SCH (14:40)
--- NOTE | 2025-01-07 15:18 | History & Physical Report ---
Date of Service January 07, 2025 Assessment & Plan (1) Paroxysmal atrial fibrillation with RVR: Plan: Acute/stable - Admit to PCU - Diabetic diet ordered - Vitals per unit protocol - Medicated with diltiazem 10mg IV x2 in ED - Rate up to 118 bpm, BP now 139/91 - Give a dose of IV lopressor 5mg x1 - Resume eliquis 5mg bid - Resume oral lopressor at higher dose of 75mg BID - Monitor rate and BP, may need to titrate dose higher based on response - Replete magnesium as noted below, goal to keep mg >2.0 and k+ >4.0 - Update echo, check TSH with reflex FT4 (2) Hypoxia: Plan: Acute - Suspect multifactorial in setting of rib contusion from fall/mild CHF/?chronic underlying lung disease - CXR and CT reviewed - mild PVC and cardiomegaly noted, may benefit from a small dose of IV lasix - H/o asthma - Resume trelegy inhaler - Continue supplemental O2 with goal pulse ox >90% - Add incentive spirometry use q1 hour while awake (3) Hypomagnesemia: Plan: Acute - Mag level 1.5 - Mag sulfate 2g IV ordered - Repeat Mag level in AM and increase supplementation to Mag Ox 400mg BID (previously taking once daily) (4) Fracture of proximal phalanx of digit of left hand: Plan: Acute/traumatic - Splint to be applied to left 5th digit - Recommend f/u imaging in 4 weeks to reassess healing - APAP as needed for pain (5) Asymptomatic bacteriuria: Plan: - Previously has yielded growth of E. coli - No current symptoms to suggest acute UTI, no fever or leukocytosis, no symptoms - Defer abx therapy Plan Chronic stable medical problems: 1. HTN - chronic, hold amlodipine to allow for increase in lopressor as above. continue losartan 50mg daily 2. CAD s/p RCA PCI x2 - chronic/continue plavix, imdur, and rosuvastatin 3. NIAY - can resume FeSO4, but would reduce dose to 325mg daily given not absorbed at higher dose of 650mg daily 4. Osteoporosis- hold ibandronate as it is NF in hosp. can resume upon d/c 5. NIDDM - Continue metformin. diabetic diet ordered. no need for BSG checks. Last a1c 7.3% 6. GERD - continue pantoprazole 7. SUDHAKAR - continue cpap at hs 8. Depression/anxiety - continue lexapro CBC, BMP and mag has been ordered for tomorrow AM. Above plan of care has been d/w Dr. Frye who has also seen and evaluated this patient. Further orders will be implemented as clinically warranted. History of Present Illness Chief Complaint: Status post fall Primary Care Provider: Rico Arevalo MD Heidi is a 79 yo F with a pmhx of CAD s/p PCI to RCA x2, most recent in May 2023, as well as paroxysmal afib, chronic ASTUDILLO, ?asthma with former h/o smoking 1ppd x15 yrs wtih continued smoke exposure from her who presents to the ER today following a fall that she sustained in her home on 01/06 in AM. She reports that she was coming upstairs from the basement when she heard the phone ring, her shoe got stuck/caught and she fell forward to the left, striking her head off of the corner of a piece of furniture. She also attempted to brace her fall, hit her left hand and left chest wall. She delayed coming in to be evaluated because she stated "I'm that type of person." She denies headache, blurred vision, or neurologic symptoms of focal weakness, numbness or tingling. She has a h/o afib since 2019 that has been paroxysmal. According to cardiology's last note in March 2024, she follows with EP at [facility] and is managed with Lopressor 50mg BID and Eliquis. There has been some consideration for antiarrhythmic therapy versus ablation if her afib burden worsens. She also endorse ASTUDILLO that has been present for many months. She has a h/o [id number] smoking cigarettes and then quit (35 yrs ago), however, her continues to smoke. She also reports some left sided rib pain that is worse with deep breaths. In the ER, she was brought in as a trauma alert. Her panscans came back WNL with exception of a small displaced left pinky fx distal PIP joint. Old rib fx noted but nothing acute. EKG noted afib at 104 bpm but rate is variable and jumps up to 130s at rest. She has been medicated with diltiazem 10mg IV x2 but her rate is still uncontrolled. She took her metoprolol this AM. Her magnesium came back at 1.5, potassium 3.8. Resp biofire is pending. She denies URI sx, but is having hypoxia with sats 88-89% on room air for which she was placed on supplemental O2. She has been referred to hospital medicine team for admission for further care. Allergies Allergy/AdvReac Type Severity Reaction Status Date / Time codeine Allergy Intermediate Vomiting & Verified 01/14/25 09:10 hallucinations sulfamethoxazole Allergy Intermediate Rash Verified 01/14/25 09:10 [From Bactrim] trimethoprim [From Bactrim] Allergy Intermediate Rash Verified 01/14/25 09:10 Home Medications Medication Instructions Recorded Confirmed Type loratadine 10 mg tablet (Allergy 10 mg PO QAM 06/29/20 01/14/25 History Relief (loratadine)) nitroglycerin 0.4 mg sublingual 0.4 mg sublingual Q5M PRN chest 04/29/23 01/14/25 Rx tablet pain #25 tabs clopidogrel 75 mg tablet 75 mg PO DAILY 06/09/23 01/14/25 History albuterol sulfate 90 mcg/actuation 2 puff inhalation QID PRN 01/27/24 01/14/25 Rx aerosol inhaler (Ventolin HFA) shortness of breath or wheezing #18 grams apixaban 5 mg tablet (Eliquis) 5 mg PO BID #180 tabs 03/25/24 01/14/25 Rx fenofibrate 54 mg tablet 54 mg PO QAM #90 tabs 03/29/24 01/14/25 Rx mirabegron 50 mg tablet,extended 50 mg PO QAM #90 tabs 05/28/24 01/14/25 Rx release 24 hr (Myrbetriq) rosuvastatin 40 mg tablet (Crestor) 40 mg PO DAILY #90 tabs 07/13/24 01/14/25 Rx bupropion HCl 300 mg 24 hr tablet, 300 mg PO QAM #90 tabs 07/19/24 01/14/25 Rx extended release metformin 500 mg tablet 500 mg PO BID #200 tabs 08/04/24 01/14/25 Rx fluticasone fur. 200 mcg-umeclid 1 inh inhalation DAILY #180 ea 08/31/24 01/14/25 Rx 62.5 mcg-vilant 25 mcg inhalat.powder (Trelegy Ellipta) losartan 50 mg tablet 50 mg PO DAILY #90 tabs 09/14/24 01/14/25 Rx ibandronate 150 mg tablet 150 mg PO MONTHLY #3 tabs 09/24/24 01/14/25 Rx montelukast 10 mg tablet 10 mg PO QPM #90 tabs 10/27/24 01/14/25 Rx (Singulair) Auto Titrating CPAP #1 ea 11/15/24 01/14/25 Rx metoprolol tartrate 50 mg tablet 50 mg PO BID #180 tabs 11/22/24 01/14/25 Rx lorazepam 0.5 mg tablet 0.5 mg PO TID PRN anxiety or 11/25/24 01/14/25 Rx restless legs #90 tabs blood sugar diagnostic (Accu-Chek #100 ea 12/04/24 01/14/25 Rx Sandy Plus test strips) blood sugar diagnostic (OneTouch #100 ea 12/28/24 01/14/25 Rx Ultra Test strips) isosorbide mononitrate 30 mg 0 mg PO QAM 01/07/25 01/14/25 History tablet,extended release 24 hr pantoprazole 40 mg tablet,delayed 0 mg PO QAM 01/07/25 01/14/25 History release (Protonix) vitamin B complex 1 tab PO QAM 01/07/25 01/14/25 History amlodipine 2.5 mg tablet 2.5 mg PO DAILY #90 tabs 01/10/25 01/14/25 Rx amiodarone 200 mg tablet 200 mg PO BID 30 days #60 tabs 01/11/25 01/14/25 Rx amiodarone 200 mg tablet 400 mg (2 x 200 mg) PO BID #15 tabs 01/11/25 01/14/25 Rx ascorbic acid (vitamin C) 500 mg mg PO 01/14/25 01/14/25 History capsule ferrous sulfate 325 mg (65 mg 325 mg PO DAILY #90 tabs 01/14/25 01/14/25 Rx iron) tablet magnesium glycinate 120 mg (1.0169 x 118 mg magnesium) 01/14/25 01/14/25 Rx PO HS #30 caps pramipexole 0.25 mg tablet 0.25 mg PO QPM #60 tabs 01/14/25 01/14/25 Rx venlafaxine 37.5 mg 37.5 mg PO DAILY #30 caps 01/14/25 01/14/25 Rx capsule,extended release 24 hr (Effexor XR) Past Med/Surg History Problem List Atrial flutter with rapid ventricular response (Acute) Asymptomatic bacteriuria Fracture of proximal phalanx of digit of left hand Paroxysmal atrial fibrillation with RVR Mild cognitive disorder Iron deficiency anemia Pericardial effusion Lung nodules PAD (peripheral artery disease) Hypertension S/P coronary artery stent placement CAD (coronary atherosclerotic disease) Memory loss Hypomagnesemia Paroxysmal atrial fibrillation Osteoporosis Vitamin D deficiency (Acute) Back pain, chronic (Acute) Asthma (Acute) Allergic rhinitis (Acute) Osteoarthritis of right knee Microalbuminuria Depression (Acute) Anxiety (Acute) Multinodular goiter Type 2 diabetes mellitus (Acute) NIDDM GERD (gastroesophageal reflux disease) (Acute) Graves disease (Acute) Euthyroid per 01/31/21 thyroid studies -- no medications/issues currently, under surveillance by PCP Hyperlipidemia (Acute) Moderate obstructive sleep apnea (Acute) CPAP Pulmonary nodules (Acute) Restless legs syndrome (Acute) Medical History Meningioma Pseudoaneurysm of left femoral artery Left groin mass Abdominal distension Diaphoresis Chest discomfort Dyspnea on exertion Abnormal thyroid blood test Cough Close exposure to 2019-nCoV Conjunctivitis Close exposure to 2019-nCoV Cough productive of purulent sputum History of COVID-19 Dx 05/2020 (treated inpatient at [facility]) Asthma Well controlled Closed fracture of right distal fibula Thyroid nodule Osteoporosis Surgical History Hx of cardiac cath 06/05/2023 H/O laminectomy (~1991) cervical laminectomy. full rom S/P right knee arthroscopy History of esophagogastroduodenoscopy (EGD) History of colonoscopy History of cholecystectomy History of corneal transplant R/L Family History Father Diabetes Heart disease Hemangioma Glaucoma Asthma Mother Stroke Other No family history of adverse response to anesthesia Social History Smoking Status: Former smoker Tobacco Type: Cigarettes Age Started Using Tobacco: 16; Age Quit Using Tobacco: 51; packs per day: 1; Second Hand Exposure: No; Do You Dip or Chew Tobacco: No; Hx Alcohol Use: No Hx Substance Use: No Preferred Language: Panamanian Communication Ability: Effective Visual Impairment: No Limitations Hearing Ability: Normal Resaw Carriage Operator Required: No Beliefs That Will Affect Care: None marital status: Current Living Situation: Alone and Spouse current occupational status: retired Feels Safe at Home: Yes Dental Care, Regularly: Yes Seatbelt Use: always Assistive Devices: Cane and Walker Review of Systems 2 Review of Systems: All systems reviewed and are unremarkable except as noted in HPI and below. Denies fever, chills, fatigue, headache, nasal congestion, sore throat, cough, chest pain, palpitations, orthopnea, PND, abdominal pain, n/v/d, constipation, dysuria, hematuria, frequency, back pain, joint pain or swelling, easy bruising or bleeding, skin lesions or rashes. Physical Exam 2 Physical Exam: GENERAL: 79 yo well-nourished elderly WF. Awake, alert and oriented x3. No distress. EYES: EOMI. PERRLA. Anicteric. HENT: Left frontal scalp laceration with surrounding ecchymosis. Moist mucous membranes. LUNGS: Scant crackles RLL otherwise CTA. No accessory muscle use. CARDIOVASCULAR: Irregular rate and rhythm ABDOMEN: Soft, non-tender and non-distended. No palpable masses. Bowel sounds normoactive x 4 quad. EXTREMITIES: Left 5th digit with swelling, ecchymosis and TTP. No b/l LE edema. Non-tender. Peripheral pulses +2/4. NEUROLOGIC: No focal neurological deficits. CN II-XII grossly intact. PSYCHIATRIC: Cooperative. Appropriate mood and affect. SKIN: Warm, dry, intact. No rashes or lesions. Results & Data Results & Data Vital Signs (Past 12 Hours) Vital Signs Temp Pulse Pulse Resp BP BP Pulse Ox 01/07/25 14:00 105 H 18 116/73 90 01/07/25 13:23 103 H 24 117/83 91 01/07/25 13:17 100 H 01/07/25 12:07 106 H 17 118/76 91 01/07/25 10:30 118 H 30 H 132/95 94 01/07/25 10:20 126 H 24 135/102 H 94 01/07/25 10:08 112 H 24 108/82 94 01/07/25 09:48 116 H 20 135/87 94 01/07/25 09:44 88 L 01/07/25 09:22 137 H 01/07/25 09:20 88 L 01/07/25 09:20 124 H 24 110/85 90 01/07/25 09:20 37.5 C 134 H 28 H 110/85 88 L 01/07/25 08:55 36.6 C 111 H 18 137/72 89 L O2 Del Method O2 Flow Rate 01/07/25 14:00 Room Air 01/07/25 13:23 Nasal Cannula 1 01/07/25 13:17 01/07/25 12:07 Room Air 01/07/25 10:30 Nasal Cannula 2 01/07/25 10:20 Nasal Cannula 2 01/07/25 10:08 Nasal Cannula 2 01/07/25 09:48 Nasal Cannula 2 01/07/25 09:44 Nasal Cannula 2 01/07/25 09:22 01/07/25 09:20 Room Air 01/07/25 09:20 Room Air 01/07/25 09:20 Room Air 0 01/07/25 08:55 Room Air Laboratory Results 01/07/25 09:26 01/07/25 09:26 Mag = 1.5 Diagnostic Findings Chest X-Ray 01/07/25 09:10 XR chest 1V portable CLINICAL HISTORY: Hypoxic . Fall. COMPARISON STUDY: 08/06/2024 FINDINGS: There is stable prominent cardiomegaly with mild pulmonary vascular congestion. There are mitral valvular calcifications. There is mild pulmonary interstitial prominence. No lobar consolidation or pleural effusion. No pneumothorax. No grossly displaced rib fracture seen. IMPRESSION: Mild CHF. ACT 112: Negative or not required by law. Electronically signed by: Pranav Stephenson M.D. 01/07/2025 9:47 AM Pelvis X-Ray 01/07/25 09:10 XR pelvis 1-2V routine CLINICAL HISTORY: fall COMPARISON: CT of the abdomen and pelvis May 10, 2023. FINDINGS: Sacroiliac joints and symphysis pubis are intact. There are no fractures within the pelvis or hips. Hip joint spaces are preserved. There is left hip osteophytosis. There are no osseous lesions. IMPRESSION: No fractures within the pelvis or hips. ACT 112: Negative or not required by law. Electronically signed by: Gorge Penny M.D. 01/07/2025 10:11 AM Abdomen/Pelvis CT 01/07/25 09:19 CT OF THE ABDOMEN AND PELVIS WITH CONTRAST CLINICAL HISTORY: Trauma, R buttocks lac/ecchymosis COMPARISON STUDY: CT of the abdomen and pelvis May 10, 2023. Pelvis radiograph performed earlier today. TECHNIQUE: Following IV administration of 94 mL of Optiray, axial images of the abdomen and pelvis were obtained from the lung bases to the proximal femurs. Images were reviewed in the axial, sagittal, and coronal planes. IV contrast was administered without complication. Automated exposure control was utilized for the study. A dose lowering technique was utilized adhering to the principles of ALARA. FINDINGS: No hemoperitoneum or pneumoperitoneum is present. There is no evidence for traumatic injury to the liver, spleen, adrenal glands, kidneys or pancreas multiple water attenuation renal lesions represent cysts. Several subcentimeter renal lesions are too small to characterize. Biliary ductal dilatation is similar to prior exam and likely related to cholecystectomy. Extensive aortoiliac atherosclerotic plaque is again noted. There is colonic diverticulosis. No evidence for acute diverticulitis. There is no evidence for a bowel obstruction. The bladder is mildly distended. Minimal linear hyperdensity within the left groin on image 212 is present. This may reflect trace hemorrhage. No acute fractures within the lumbar spine, pelvis or hips are identified. Chest CT will be reported separately. Mild cortical irregularity of the S3 vertebral bodies likely chronic. IMPRESSION: 1. No evidence for traumatic injury to the solid abdominal viscera. 2. Small linear hyperdensity within the left groin. This may reflect trace hemorrhage. No active extravasation. No large hematoma. ACT 112: Negative or not required by law. Electronically signed by: Gorge Penny M.D. 01/07/2025 11:[address] 01/07/25 09:19 CT cervical spine wo con CT DOSE: 2966.05 mGy.cm CLINICAL HISTORY: 79 years-old Female with Trauma, L facial trauma. Acute head and neck injury status post trauma COMPARISON: CT chest enhanced exams of same day, chest CT 08/24/2024, CT cervical spine 05/10/2023 TECHNIQUE: Multiple axial CT images of the cervical spine were obtained without contrast. A dose lowering technique was utilized adhering to the principles of ALARA. FINDINGS: Alignment of the cervical spine is anatomic. Vertebral body heights are maintained. No acute cervical spine fracture or subluxation is present. There is no prevertebral edema. Facet joints are intact. A lucent lesion within the C3 vertebral body is unchanged and likely benign. Moderate multilevel degenerative changes within the cervical spine are present. Minimal superior endplate compression of less than 20% with sclerosis involves the T2 vertebral body with similar appearance of the inferior endplate of C7. These findings are unchanged from the 08/24/2024 exam. The cervical soft tissues appear unremarkable. The visualized lung apices appear clear. IMPRESSION: 1. No acute cervical spine fracture or subluxation. 2. Unchanged appearance of the mild chronic C7 and T2 compression deformities. ACT 112: Negative or not required by law. The above report was generated using voice recognition software. It may contain grammatical, syntax or spelling errors. Electronically signed by: Fly Diggs M.D. 01/07/2025 10:[address] 01/07/25 09:[address] WITH CONTRAST HISTORY: Trauma, L rib cage pain TECHNIQUE: Multiaxial CT images of the chest were performed following the IV administration of cc of Optiray. A dose lowering technique was utilized adhering to the principles of ALARA. COMPARISON STUDY: 08/24/2024 FINDINGS: There is no pulmonary contusion, pleural effusion, or pneumothorax. No mediastinal hematoma. No evidence of thoracic aortic injury. No pericardial effusion. There are diffuse coronary artery and aortic calcifications. There are a few stable old bilateral rib fractures. Stable mild height loss at a few upper thoracic vertebral bodies. No acute osseous finding seen. IMPRESSION: No acute injury seen in the chest. Otherwise as described. ACT 112: Negative or not required by law. Electronically signed by: Pranav Stephenson M.D. 01/07/2025 10:[address] 01/07/25 09:19 CT head/brain wo con CLINICAL HISTORY: 79 years-old Female with Trauma, L facial trauma. Acute head trauma status post fall TECHNIQUE: Multiple axial CT images of the head were obtained without contrast. A dose lowering technique was utilized adhering to the principles of ALARA. COMPARISON: CT cervical spine of same day, head CT 05/10/2023 FINDINGS: No acute intracranial hemorrhage, midline shift or mass effect is present. The ventricular system is unremarkable. The basal cisterns are patent. A calcified extra-axial lesion adjacent to the left frontal lobe is unchanged suggesting a benign meningioma measuring 12 mm without significant mass effect. No extra- axial collections are present. There are no findings to suggest acute dural sinus thrombosis or acute territorial infarct. No significant calvarial abnormalities are present. Visualized portions of the sinuses and mastoid air cells are clear. Small left frontal scalp, forehead and supraorbital contusions. IMPRESSION: 1. Unchanged appearance of the brain without acute intracranial abnormality identified. 2. No acute calvarial fracture. 3. Small left scalp/facial contusions. ACT 112: Negative or not required by law. The above report was generated using voice recognition software. It may contain grammatical, syntax or spelling errors. Electronically signed by: Fly Diggs M.D. 01/07/2025 10:25 AM Hand X-Ray 01/07/25 09:25 XR hand LT 2V CLINICAL HISTORY: trauma COMPARISON: None FINDINGS: There are moderate scattered degenerative changes. There is chronic lateral subluxation of the first CMC joint. There is a possible nondisplaced fracture versus artifact base of the fifth proximal phalanx. No other acute fracture or dislocation seen. IMPRESSION: Artifact versus nondisplaced fracture fifth proximal phalanx base. No other acute fracture seen. ACT 112: Negative or not required by law. Electronically signed by: Pranav Stephenson M.D. 01/07/2025 10:25 AM ECG Additional Comments: EKG - Afib w/ rate of 104 bpm Code Status & VTE Plan Code Status DNR/DNI - discussed with patient Supervising Physician Co-Signing Physician Notes I personally saw and examined the patient. I independently reviewed the labs, EKG, imaging, problem list, medication list, past medical history and family history. I verified all samuel points and agree with Belen Smith PA-C with the following exceptions and/or additions: 79 year old female presents to the ER following a fall. Tripped while walking upstairs. O/E Alert & orientated x3, HS irregular rhythm, increased rate, no murmurs, Bibasal crackles, left 5th digit in splint, left frontal scalp ecchymosis A/P Paroxysmal atrial fibrillation - replete magnesium, increase metoprolol, continue Eliquis, TTE, TSH Hypoxia - no respiratory distress, suspect poor inspiratory effort in setting a. fib PG Care Time/CCT Total # of Minutes Spent Total Time Spent with Patient: Total time spent is greater than 50% in coordination of care (as documented) at patient's floor/unit and/or counseling patient: 77 minutes Coding Level of Care Code 42229 INT INP/OBS CARE 3/75MIN Diagnoses Paroxysmal atrial fibrillation with RVR I48.0 Hypoxia R09.02 Hypomagnesemia E83.42 Fracture of proximal phalanx of digit of left hand S62.619A Asymptomatic bacteriuria R82.71
[2025-01-07 15:50] LABS: Adenovirus PCR Not Detected (NotDetected); Bordetella parapertussis PCR Not Detected (NotDetected); Bordetella pertussis PCR Not Detected (NotDetected); Chlamydia pneumoniae PCR Not Detected (NotDetected); Coronavirus 229E PCR Not Detected (NotDetected); Coronavirus CoV-2 (COVID19)PCR Not Detected (NotDetected); Coronavirus HKU1 PCR Not Detected (NotDetected); Coronavirus NL63 PCR Not Detected (NotDetected); Coronavirus OC43PCR DETECTED (NotDetected); Human Metapneumovirus PCR Not Detected (NotDetected); Influenza A PCR Not Detected (NotDetected); Influenza B PCR Not Detected (NotDetected); Mycoplasma pneumoniae PCR Not Detected (NotDetected); Parainfluenza Virus 1 PCR Not Detected (NotDetected); Parainfluenza Virus 2 PCR Not Detected (NotDetected); Parainfluenza Virus 3 PCR Not Detected (NotDetected); Parainfluenza Virus 4 PCR Not Detected (NotDetected); Respiratory Syncytial VirusPCR Not Detected (NotDetected); Rhinovirus/Enterovirus PCR Not Detected (NotDetected)
[2025-01-07] MEDS: METOPROLOL TARTRATE 1 MG/ML VIAL IV STA (15:51)
[2025-01-07] MEDS ORDERED: MAGNESIUM HYDROXIDE SUSP 30 ML UDC PO PRN (17:13)
[2025-01-07] MEDS ORDERED: ONDANSETRON INJ 2 MG/ML 2 ML VIAL IV PRN (17:13)
[2025-01-07] MEDS ORDERED: LORazepam 0.5 MG TAB PO PRN (17:13)
[2025-01-07] MEDS ORDERED: ALUMINUM/MAGNESIUM SUSP 30 ML UDC PO PRN (17:13)
[2025-01-07] MEDS: ACETAMINOPHEN 325 MG TAB PO PRN (17:51)
[2025-01-07 17:54] LABS: Thyroid Stimulating Hormone 2.789 uIu/ml (0.300-4.500)
[2025-01-07] MEDS ORDERED: DEXTROSE 50% 50 ML SYRINGE IV PRN (18:30)
[2025-01-07] MEDS ORDERED: GLUCOSE 10 TAB/TUBE PO PRN (18:30)
[2025-01-07] MEDS ORDERED: GLUCAGON FOR INJ 1 MG VIAL SQ PRN (18:30)
[2025-01-07] MEDS ORDERED: GLUCOSE 40% GEL 15 GM TUBE PO PRN (18:30)
[2025-01-07] MEDS ORDERED: CARBOHYDRATES FOR HYPOGLYCEMIA PO PRN (18:30)
[2025-01-07] MEDS: INSULIN ASPART PER UNIT CHARGE SC SCH (20:45)
[2025-01-07] MEDS ORDERED: metFORMIN HCL 500 MG TAB PO SCH (21:00)
[2025-01-07] MEDS: METOPROLOL TARTRATE 50 MG TAB PO SCH (21:32)
[2025-01-07] MEDS: MONTELUKAST SODIUM 10 MG TABLET PO SCH (21:32)
[2025-01-07] MEDS: APIXABAN 5 MG TABLET PO SCH (21:32)
[2025-01-08 06:48] LABS: Basophils # (auto) 0.03 K/uL (0.00-0.20); Basophils % (auto) 0.5 %; Eosinophils # (auto) 0.17 K/uL (0.00-0.50); Eosinophils % (auto) 2.6 %; Hematocrit (blood only) 35.2 % (37.0-47.0); Hemoglobin 11.5 g/dl (12.0-16.0); Immature Granulocytes # (auto) 0.04 K/uL (0.01-0.20); Immature Granulocytes % (auto) 0.6 %; Lymphocytes # (auto) 0.72 K/uL (1.20-3.40); Lymphocytes % (auto) 10.9 %; Mean Corpuscular Hemoglobin 29.6 pg (25.0-34.0); Mean Corpuscular Hgb Conc 32.7 g/dL (32.0-36.0); Mean Corpuscular Volume 90.7 fL (80.0-100.0); Mean Platelet Volume 9.3 fL (9.4-12.4); Monocytes # (auto) 0.47 K/uL (0.11-0.59); Monocytes % (auto) 7.1 %; Neutrophils # (auto) 5.18 K/uL (1.40-6.50); Neutrophils % (auto) 78.3 %; Platelet Count 328 K/uL (130-400); RDW Coefficient of Variation 13.7 % (11.5-14.5); RDW Standard Deviation 45.6 fL (36.4-46.3); Red Blood Count 3.88 M/uL (4.20-5.40); White Blood Count 6.61 K/ul (4.8-10.8)
[2025-01-08 06:53] LABS: BUN Creatinine Ratio 16.7 (10-20); Calcium 9.5 mg/dl (8.6-10.3); Creatinine Clr Calc Pharmacy 48.3 ml/min; Magnesium 1.7 mg/dl (1.7-2.4); Potassium 3.9 mmol/L (3.5-5.1)
--- NOTE | 2025-01-08 07:41 | Hospitalist Progress Note ---
Date of Service January 08, 2025 Assessment & Plan (1) Paroxysmal atrial fibrillation with RVR: Plan: Acute/stable, on Eliquis 5mg BID - Metoprolol tartrate at higher dose of 75mg BID, still elevated HR to 130s - Started on diltiazem drip per protocol: 5mg at 125cc/hr initially -> 10mg in PM 01/08/25 - if continues to remain elevated, will increase to 15mg drip. Consider amiodarone with cardio consult if still not managed - Replete magnesium and K+, goal to keep Mg >2.0 and k+ >4.0 - TSH within normal limits - Echocardiogram 04/23/24 showing LVEF >70%, severe atrial dilation; echo ordered (2) Hypoxia: Plan: Acute - Suspect multifactorial in setting of rib contusion from fall/mild CHF; echo ordered - CXR and CT reviewed - mild PVC and cardiomegaly noted, may benefit from a small dose of IV lasix - Hx asthma, continue trelegy inhaler - Tolerating 1L NC with goal pulse ox >90%, consider room air if continues to tolerate - Incentive spirometry use q1 hour while awake (3) Hypomagnesemia: Plan: Acute - Mag level 1.5 ->1.7, mag sulfate 2g given - Repeat Mag level in AM, increasing to Mag Ox 400mg BID up from daily - K+ repletion to >4.0 (4) Fracture of proximal phalanx of digit of left hand: Plan: Acute/traumatic - Splint to be applied to left 5th digit - Recommend f/u imaging in 4 weeks to reassess healing - APAP as needed for pain (5) Asymptomatic bacteriuria: Plan: - Previously has yielded growth of E. coli - No current symptoms to suggest acute UTI, no fever or leukocytosis, no symptoms - Defer abx therapy Plan Chronic stable medical problems: 1. HTN - chronic, hold amlodipine to allow for increase in lopressor as above. continue losartan 50mg daily 2. CAD s/p RCA PCI x2 - chronic/continue plavix, imdur, and rosuvastatin 3. NIYA - can resume FeSO4, but would reduce dose to 325mg daily given not absorbed at higher dose of 650mg daily 4. Osteoporosis- hold ibandronate as it is NF in hosp. can resume upon d/c 5. NIDDM - Continue metformin. diabetic diet ordered. no need for BSG checks. Last a1c 7.3% 6. GERD - continue pantoprazole 7. SUDHAKAR - continue cpap at hs 8. Depression/anxiety - continue lexapro Dispo: tele Diet: VTE: Eliquis Admission and Anticipated Discharge Date Admission Date: January 07, 2025 Supervising Physician Co-Signing Physician Notes Attending attestation Pt seen and examined in concert with Dr. Gant. In agreement with the documented findings as noted in the resident documentation with any exceptions or additions as noted here. No acute complaints at time of bedside evaluation. On direct inqury, denies any urinary symptoms including suprapubic TTP, dysuria, frequency, hesitancy, retetention. AAOx3. On examination, S1/S2 nl IRR no MCG. CTAB. Abd NT/ND BS+ve. No TTP to direct suprapubic palpation. VS as noted. HR 120s Hgb 11.5, WBC 6.61, Cr 0.90 Atrial fibrillation with RVR, asymptomatic at rest - no response to increased PO metoprolol dose, 2x dilt 10mg and 1x lopressor 5mg. Agree w/ start dilt drip, uptitrate and monitor tele closely. Replete Mg, K Fracture, left 5th digit - splinting Asymptomatic bacteriuria - no symptoms presently. Defer therapy. Follow up final UCx Else see resident documentation as noted. Shari Gordon was seen and evaluated at bedside this AM, appearing and feeling well in no discomfort. Endorses rushing up stairs at her home when she feels that one of her feet got caught on a step, causing her to fall head-first into a piece of furniture. Endorses bleeding, but denies any loss of consciousness. Notes current L frontal head pain, as well as L chest wall and L pinky pain. Denies any current palpitation, lightheadedness, dizziness, neck pain, SOB, palpitations, chest pain, or abdominal pain. Currently on fall precautions so she has not tried to stand on her own yet, but hasn't had any symptoms upon standing to use bathroom. Endorses no urinary symptoms aside from smelling funny. Review of Systems Review of Systems: per HPI Physical Exam Physical Exam: General: A&Ox3, in no acute apparent distress HEENT: EOM intact, PERRL b/l - 3cm left frontal scalp laceration with dried blood and surrounding ecchymosis. Moist mucous membranes. Respiratory: clear to auscultation b/l, no wheeze/rales/ rhonchi CV: Irregularly irregular rhythm, tachycardic, no m/r/g GI/Abd: +BS, abdomen soft, non-tender, non-distended Ext: Left 5th digit with swelling, ecchymosis and tenderness to palpation; 5/5 strength in all extremities - No b/l LE edema, non-tender to calf pa lpation, peripheral pulses +2 Neuro: no facial droop, speech intact, no focal neurological deficits. CN II-XII grossly intact. Skin: Warm, dry, intact. No rashes or lesions. Results & Data Results & Data Vital Signs (Past 12 Hours) Vital Signs Temp Pulse Pulse Resp BP Pulse Ox O2 Del Method 01/08/25 07:21 122 H 01/08/25 02:50 36.7 C 111 H 20 136/90 94 Nasal Cannula 01/07/25 23:00 36.8 C 110 H 18 120/84 95 Room Air 01/07/25 21:55 119 H Resident Activity Tracking Resident Involvement: Resident Care Provided Care Provided: Adult Hospital Medicine
[2025-01-08] MEDS: ROSUVASTATIN CALCIUM 20 MG TAB PO SCH (08:19)
[2025-01-08] MEDS: LORATADINE 10 MG TAB PO SCH (08:19)
[2025-01-08] MEDS: MAGNESIUM OXIDE 400 MG TAB PO SCH ×2 (08:19→21:48)
[2025-01-08] MEDS: ISOSORBIDE MONO EXTENDED REL 30 MG TABCR PO SCH (08:19)
[2025-01-08] MEDS: ESCITALOPRAM OXALATE 20 MG TAB PO SCH (08:19)
[2025-01-08] MEDS: LOSARTAN POTASSIUM 50 MG TAB PO SCH (08:20)
[2025-01-08] MEDS: buPROPion XL 300 MG TABCR PO SCH (08:20)
[2025-01-08] MEDS: CLOPIDOGREL BISULFATE 75 MG TAB PO SCH (08:20)
[2025-01-08] MEDS: PANTOprazole 40 MG TAB PO SCH (08:20)
[2025-01-08] MEDS: FLUTICASONE FUROATE 200MCG 14 PUFFS/INHALER INH SCH (08:21)
[2025-01-08] MEDS: UMECLIDINIUM/VILANTEROL 62.5/25MCG 7 PUFFS/INHALER INH SCH (08:21)
[2025-01-08] MEDS: FENOFIBRATE NANOCRYSTALLIZED 48 MG TABLET PO SCH (08:22)
[2025-01-08] MEDS ORDERED: NON-FORMULARY MEDICATION (Fluticasone-Umeclidin-Vilanter [Trelegy Ellipta] 200-62.5-25 mcg INH SCH (09:00)
[2025-01-08] MEDS: STAT IV Infusion **Titration per Protocol STA (12:25)
[2025-01-08] MEDS: dilTIAZem HCl 5 MG/ML 5 ML VIAL IV STA (12:26)
[2025-01-08] MEDS: dilTIAZem HCL 125 MG in DEXTROSE 5% 100 ML IV SCH (12:27)
[2025-01-08] MEDS: POTASSIUM CHLORIDE 10 MEQ TABCR PO SCH (17:50)
--- NOTE | 2025-01-08 18:04 | XCELERA ---
[id number] [id number]
[2025-01-09 01:07] LABS: BUN Creatinine Ratio 20.4 (10-20); Calcium 9.6 mg/dl (8.6-10.3); Creatinine Clr Calc Pharmacy 42.2 ml/min; Magnesium 1.6 mg/dl (1.7-2.4); Potassium 3.7 mmol/L (3.5-5.1)
--- NOTE | 2025-01-09 01:33 | Communication Note ---
Date of Service: January 09, 2025 Notified by RN that patient had abrupt transition from A-fib with rate in the 80s to a junctional rhythm with rate of 45 bpm. Patient evaluated at bedside, noted that she briefly felt mild SOB but was otherwise asymptomatic and HD stable. Dilt drip and Metoprolol put on hold. Checked electrolytes, K+ 3.7, Mag 1.6 - repleted. Serial monitoring showed eventual conversion to sinus rhythm with PACs, rate in the 60s, BP remained stable. Cardiology consult placed d/t suspicion for possible tachy-mary syndrome.
[2025-01-09] MEDS: POTASSIUM CHLORIDE CRTAB 20 MEQ TABCR PO STA (01:52)
[2025-01-09] MEDS: MAGNESIUM SULFATE / D5W 1 GM/100 ML BAG IV SCH (01:52)
[2025-01-09 06:21] LABS: Hematocrit (blood only) 35.4 % (37.0-47.0); Hemoglobin 11.6 g/dl (12.0-16.0); Mean Corpuscular Hemoglobin 29.7 pg (25.0-34.0); Mean Corpuscular Hgb Conc 32.8 g/dL (32.0-36.0); Mean Corpuscular Volume 90.8 fL (80.0-100.0); Mean Platelet Volume 9.2 fL (9.4-12.4); Platelet Count 323 K/uL (130-400); RDW Coefficient of Variation 13.5 % (11.5-14.5); RDW Standard Deviation 44.3 fL (36.4-46.3); White Blood Count 6.33 K/ul (4.8-10.8)
[2025-01-09 06:52] LABS: BUN Creatinine Ratio 18.8 (10-20); Calcium 9.9 mg/dl (8.6-10.3); Creatinine Clr Calc Pharmacy 43.4 ml/min; Magnesium 2.4 mg/dl (1.7-2.4)
[2025-01-09] MEDS ORDERED: MAGNESIUM SULFATE / D5W 1 GM/100 ML BAG IV SCH (07:00)
--- NOTE | 2025-01-09 07:08 | Hospitalist Progress Note ---
Date of Service January 09, 2025 Assessment & Plan (1) Paroxysmal atrial fibrillation with RVR: Plan: Acute/stable, on Eliquis 5mg BID - Metoprolol & diltiazem were put on hold overnight due to bradycardia in 40s for about 20min - cardiology has been consulted, in the meantime will resume home dose metoprolol tartrate 50mg BID - EKG on 01/09/25 NSR in 60s -> back into afib 110-120s HR around noon, deferring further management until seen by cardiology Dr. Singh - mag 2.4, K 4.0, goal to keep Mg >2.0 and k+ >4.0 - TSH within normal limits - Echo 01/08/25 showing LVEF 60-65%, no wall motion abnormalities, moderate concentric LVH, severe Left atrial dilation, moderate mitral annular calcifications, mild pulmonary HTN, small pericardial effusion with no tamponade; prior echocardiogram 04/23/24 showing LVEF >70%, severe atrial dilation (2) Hypoxia: Plan: Acute, resolving - Suspect multifactorial in setting of rib contusion from fall/mild CHF; see echo results above - CXR and CT reviewed - mild PVC and cardiomegaly noted, may benefit from a small dose of IV lasix - Hx asthma, continue trelegy inhaler - Tolerating 1L NC with goal pulse ox >90%, consider room air if continues to tolerate - continuing to use incentive spirometry q1 hour while awake (3) Hypomagnesemia: Plan: Acute - Mag repletion to >2.0: 1.7 -> 2.4 - K+ repletion to >4.0: 4.0 (4) Fracture of proximal phalanx of digit of left hand: Plan: Acute/traumatic - Splint to be applied to left 5th digit - Recommend f/u imaging in 4 weeks to reassess healing - APAP as needed for pain (5) Asymptomatic bacteriuria: Plan: - Previously has yielded growth of E. coli - No current symptoms to suggest acute UTI, no fever or leukocytosis, no symptoms - Defer abx therapy Plan Chronic stable medical problems: 1. HTN - chronic, hold amlodipine to allow for increase in lopressor as above. continue losartan 50mg daily 2. CAD s/p RCA PCI x2 - chronic/continue plavix, imdur, and rosuvastatin 3. NIYA - can resume FeSO4, but would reduce dose to 325mg daily given not absorbed at higher dose of 650mg daily 4. Osteoporosis- hold ibandronate as it is NF in hosp. can resume upon d/c 5. NIDDM - Continue metformin. diabetic diet ordered. no need for BSG checks. Last a1c 7.3% 6. GERD - continue pantoprazole 7. SUDHAKAR - continue cpap at hs 8. Depression/anxiety - continue lexapro Dispo: tele Diet: VTE: Eliquis Admission and Anticipated Discharge Date Admission Date: January 07, 2025 Supervising Physician Co-Signing Physician Notes I personally examined the patient and verified samuel points of history and exam, discussed case, and agree with decision making and plan documented by Dr. Gant. Patient with short conversion to NSR overnight, heart rate dropped to 40s, diltiazem drip and metoprolol held. Patient returned to atrial fibrillation, was restarted on metoprolol tartrate 50 mg BID. Patient appears comfortable, family at bedside, on exam diffuse bruising of superior left side of face, lungs clear b/l to auscultation, irregularly irregular rate and rhythm, no acute distress. She remains asymptomatic for atrial fibrillation and bacteriuria. Cardiology consulted. Shari Gordon was seen and evaluated at bedside this AM, appearing and feeling well in no discomfort. Overnight notes mild SOB, pulse was recorded in 40s around midnight for about 20min but once rate was back up to 60-80s she felt better. Otherwise feels well, denies any current palpitations, lightheadedness, dizziness, neck pain, SOB, chest pain, or abdominal pain. Continues to be on fall precautions but was up to use bathroom without any of the above symptoms. Has been eating and tolerating fluids well. Informed her that her diltiazem and metoprolol were put on hold due to the drop in HR overnight, discussed with on-call visual merchandising coordinator and advised to put back on home metoprolol dose for now. Review of Systems Review of Systems: per HPI Physical Exam Physical Exam: General: A&Ox3, in no acute apparent distress HEENT: EOM intact, PERRL b/l - 3cm left frontal scalp laceration with dried blood and surrounding ecchymosis, decreased from day prior. Moist mucous membranes. Respiratory: clear to auscultation b/l, no wheeze/rales/ rhonchi CV: RRR, +s1/s2, no m/r/g GI/Abd: +BS, abdomen soft, non-tender, non-distended Ext: Left 5th digit with swelling, ecchymosis and tenderness to palpation; 5/5 strength in all extremities - No b/l LE edema, non-tender to calf pa lpation, peripheral pulses +2 Neuro: no facial droop, speech intact, no focal neurological deficits. CN II-XII grossly intact. Skin: Warm, dry, intact. No rashes or lesions. Results & Data Results & Data Vital Signs (Past 12 Hours) Vital Signs Temp Pulse Resp BP BP Pulse Ox O2 Del Method 01/09/25 03:20 37.2 C 70 18 130/75 94 Nasal Cannula 01/09/25 00:42 44 L 18 126/70 93 Nasal Cannula 01/08/25 23:04 37.1 C 95 H 18 108/66 94 Nasal Cannula 01/08/25 20:00 Nasal Cannula O2 Flow Rate 01/09/25 03:20 2.0 01/09/25 00:42 2 01/08/25 23:04 2.0 01/08/25 20:00 2 Resident Activity Tracking Resident Involvement: Resident Care Provided Care Provided: Adult Hospital Medicine
[2025-01-09] MEDS: METOPROLOL TARTRATE 50 MG TAB PO SCH ×2 (13:36→20:54)
--- NOTE | 2025-01-09 17:24 | Cardiology Consultation ---
Date of Consultation January 09, 2025 Assessment & Plan (1) Atrial flutter with rapid ventricular response: (2) Paroxysmal atrial fibrillation with RVR: (3) Pericardial effusion: (4) CAD (coronary atherosclerotic disease): (5) S/P coronary artery stent placement: (6) PAD (peripheral artery disease): (7) Hyperlipidemia: (8) Hypertension: Plan ASSESSMENT/PLAN: 1. Paroxysmal atrial fibrillation/flutter: Known to have atrial fibrillation and also what now appears to be atrial flutter. Asymptomatic. Had spontaneously converted during this hospital stay only to resume this afternoon. We discussed treatment strategies. Has been [place] by Dr. Curry of [place] [facility] [place] had discussed in the past antiarrhythmic therapy versus A-fib ablation. More recently he recommended ongoing rate control strategy per family. Given that she is asymptomatic, rate control strategy seems reasonable. Increase metoprolol to 100 mg twice daily. We also discussed antiarrhythmic therapy and ablation as options. If rate control strategy is insufficient, we will reconsider antiarrhythmic therapy. Patient and family members present were agreeable for rate control strategy. Continue anticoagulation for stroke risk reduction. 2. CAD s/p RCA PCI x 2 (and atherectomy): Continue Plavix 75 mg daily while on Eliquis 5 mg twice daily. Has had GI intolerance to aspirin in the past and feels much better with Plavix. If Plavix needs to be held for procedure, would use aspirin 81 mg once daily in its place throughout the perioperative period. Recommend antiplatelet therapy without interruption indefinitely. Continue high intensity statin therapy, nitrate therapy, ARB, and beta-hanna. 911 for angina that does not resolve within 5 minutes of nitroglycerin. 3. Peripheral arterial disease: Significant right femoral artery and right internal iliac artery disease noted on CT imaging at [facility]. 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 Follows with [facility]. 4. Dyslipidemia: Continue high intensity statin therapy with rosuvastatin. LDL currently well-controlled. LDL was not at goal with atorvastatin. Mediterranean diet. Cardiovascular exercise as able. 5. Hypertension: Blood pressure mostly normotensive. Continue current plan as above. 6. Pericardial effusion: Chronic and stable. 7. Junctional bradycardia: Occurred while on oral beta-hanna and intravenous diltiazem drip. Increasing beta-hanna as above. If has ongoing issues with tachycardia/bradycardia, we discussed potential for pacemaker in the future. Would not resume diltiazem drip at this point. 8. Disposition: Cardiology will continue to follow. Plan of care communicated with primary hospitalist Dr. Rodriguez. Thank you for allowing me to participate in the care of your patient. Please call for any other questions or concerns. Sincerely, Chance Singh M.D. History of Present Illness Reason for Consultation: afib rvr Requesting Physician: Dr. Russ Attending Physician: Effie Rodriguez, DO History of Present Illness Mrs. James is a very pleasant 78-year-old woman with a history of CAD s/p RCA PCI, paroxysmal atrial fibrillation, hypertension, dyslipidemia, type 2 diabetes, and asthma. She has experienced dyspnea on exertion, limiting daily activities in 2022. She underwent cardiac catheterization demonstrating RCA CAD. Attempts for further investigation at [facility] were unsuccessful. She was referred to [facility] given high calcium burden and possibility of atherectomy. Dr. Abdalla performed RCA atherectomy and PCI x2 on 06/05/2023. Left femoral artery developed pseudoaneurysm, requiring thrombin injection at [facility] [place] 06/20/2023. She has had the following studies/procedures: 1. Stress echo 10/15/2022: Nondiagnostic due to failure to achieve target heart rate. Normal LV size, wall thickness, and systolic function. EF 58%. No significant valvular abnormality. 2. Pharmacologic nuclear stress 11/19/2022: Negative for ischemia. Very mild and small fixed defect likely artifact given normal wall motion. LVEF 79%. 3. Cardiac cath 05/15/2023 [facility] (Dr. Baig): Left main luminal irregularities. LAD 30%. RCA proximal 70%. Catheters were unable to be passed through the right subclavian artery. Left heart catheterization performed via the left radial artery. LVEDP 4. PA 8/17. PCWP 6. RV 29/0. Mean RA 3. 4. Cardiac cath 05/16/2023 [facility] (Dr. Ugalde): Attempted FFR of RCA. Performed via the right femoral artery. Difficulty advancing J-tip wire. Fluoroscopy suggested iliac and distal aortic atherosclerosis. Eventually, wires were able to be sufficiently advanced however cannulation of the RCA was difficult. Once engaged, guidewire could not be sufficiently advanced beyond RCA lesion. 5. Cardiac cath 06/05/2023 [facility] (Dr. Abdalla): Performed via left femoral artery. Proximal RCA 90%. Rotational atherectomy performed and then PCI with 2 overlapping 3 x 16 mm and 3 x 32 mm Synergy BERNARDO. Mid to proximal segment postdilated with 3.25 mm NC. Complicated by left femoral artery pseudoaneurysm. 6. CT abdomen/pelvis 06/19/2023 [facility]: Proximal left femoral artery pseudoaneurysm. Severe atherosclerosis with severe stenosis of the proximal right femoral artery and near occlusion of the mid right femoral artery and proximal right internal iliac artery. 7. Left femoral arterial duplex 06/19/2023 [facility]: 4.7 cm x 3.9 cm pseudoaneurysm arising from left femoral artery. 8. Pseudoaneurysm thrombin injection 06/20/2023 [facility]: Successful. 9. Echo 07/29/2023 [facility]: Normal LV size. EF > 70%. Normal wall motion. Moderate LVH. Moderate left atrial dilation. Sclerotic aortic valve without significant stenosis. RVSP 38. Small pericardial effusion. No significant change from 10/15/2022. 10. Echo 01/08/2025 [facility]: Normal LV size, wall motion, systolic function. EF 60-65%. Moderate LVH. Severe left atrial dilation. Moderate MAC. Mild MR. RVSP 39. Small pericardial effusion without echocardiographic evidence of tamponade physiology. She was hospitalized on 01/07/2025 after a mechanical fall. She tripped while walking up the stairs. She was noted to be in A-fib with RVR. She was given intravenous diltiazem, including a diltiazem drip. She also had received intravenous metoprolol and was continued on oral metoprolol but with increased dose of 75 mg twice daily. Overnight, she had a 3-second conversion pause at 0002 AM today and then junctional bradycardia for 20 to 30 minutes and then sinus rhythm. Atrial fibrillation began again on 01/09/2025 at 12:01 PM. She remained completely asymptomatic while in A-fib with RVR and noted no difference when she converted or reverted back to A-fib. She has dyspnea on exertion with more strenuous activities which is chronic and stable. She denies palpitations, chest pain, syncope, near syncope. She had vomiting and diarrhea 2 weeks ago but this has since subsided and she believes that she has been rehydrated. There has been issues with progressively worsening memory. She has been seen at [facility] by electrophysiology, Dr. Curry. Her and family present recall that because she was in sinus rhythm at that time, continued rate control strategy was recommended. Review of systems: As above. Family history: Father had CAD diagnosed in his 60s. Social history: She quit smoking approximately 51 years of age after approximately 30 pack years. Occasional alcohol. No drugs. She is and lives at home with her , You. She has 2 children (Kandice Quiros - nurse). Her son, Javy, and [id number], Kasey (ER nurse at [employer] [place] accompanied her at the bedside. Kandice YOUNG (moved to [place]) participated via speaker phone. Allergies Allergy/AdvReac Type Severity Reaction Status Date / Time codeine Allergy Intermediate Vomiting & Verified 01/07/25 12:09 hallucinations sulfamethoxazole Allergy Intermediate Rash Verified 01/07/25 12:09 [From Bactrim] trimethoprim [From Bactrim] Allergy Intermediate Rash Verified 01/07/25 12:09 Home Medications Medication Instructions Recorded Confirmed Type loratadine 10 mg tablet (Allergy 10 mg PO QAM 06/29/20 01/07/25 History Relief (loratadine)) nitroglycerin 0.4 mg sublingual 0.4 mg sublingual Q5M PRN chest 04/29/23 01/07/25 Rx tablet pain #25 tabs clopidogrel 75 mg tablet 75 mg PO DAILY 06/09/23 01/07/25 History magnesium oxide 400 mg PO DAILY 06/19/23 01/07/25 History ferrous sulfate 325 mg (65 mg 650 mg PO DAILY 10/14/23 01/07/25 History iron) tablet amlodipine 2.5 mg tablet 2.5 mg PO DAILY #90 tabs 01/19/24 01/07/25 Rx albuterol sulfate 90 mcg/actuation 2 puff inhalation QID PRN 01/27/24 01/07/25 Rx aerosol inhaler (Ventolin HFA) shortness of breath or wheezing #18 grams apixaban 5 mg tablet (Eliquis) 5 mg PO BID #180 tabs 03/25/24 01/07/25 Rx fenofibrate 54 mg tablet 54 mg PO QAM #90 tabs 03/29/24 01/07/25 Rx mirabegron 50 mg tablet,extended 50 mg PO QAM #90 tabs 05/28/24 01/07/25 Rx release 24 hr (Myrbetriq) rosuvastatin 40 mg tablet (Crestor) 40 mg PO DAILY #90 tabs 07/13/24 01/07/25 Rx escitalopram oxalate 20 mg tablet 20 mg PO QAM #90 tabs 07/16/24 01/07/25 Rx (Lexapro) bupropion HCl 300 mg 24 hr tablet, 300 mg PO QAM #90 tabs 07/19/24 01/07/25 Rx extended release metformin 500 mg tablet 500 mg PO BID #200 tabs 08/04/24 01/07/25 Rx fluticasone fur. 200 mcg-umeclid 1 inh inhalation DAILY #180 ea 08/31/24 01/07/25 Rx 62.5 mcg-vilant 25 mcg inhalat.powder (Trelegy Ellipta) losartan 50 mg tablet 50 mg PO DAILY #90 tabs 09/14/24 01/07/25 Rx ibandronate 150 mg tablet 150 mg PO MONTHLY #3 tabs 09/24/24 01/07/25 Rx montelukast 10 mg tablet 10 mg PO QPM #90 tabs 10/27/24 01/07/25 Rx (Singulair) Auto Titrating CPAP #1 ea 11/15/24 11/15/24 Rx metoprolol tartrate 50 mg tablet 50 mg PO BID #180 tabs 11/22/24 01/07/25 Rx lorazepam 0.5 mg tablet 0.5 mg PO TID PRN anxiety or 11/25/24 01/07/25 Rx restless legs #90 tabs blood sugar diagnostic (Accu-Chek #100 ea 12/04/24 Rx Sandy Plus test strips) blood sugar diagnostic (OneTouch #100 ea 12/28/24 Rx Ultra Test strips) isosorbide mononitrate 30 mg 0 mg PO QAM 01/07/25 01/07/25 History tablet,extended release 24 hr pantoprazole 40 mg tablet,delayed 0 mg PO QAM 01/07/25 01/07/25 History release (Protonix) vitamin B complex 1 tab PO QAM 01/07/25 01/07/25 History Problem List Atrial flutter with rapid ventricular response (Acute) Asymptomatic bacteriuria Fracture of proximal phalanx of digit of left hand Paroxysmal atrial fibrillation with RVR Mild cognitive disorder Iron deficiency anemia Pericardial effusion Lung nodules PAD (peripheral artery disease) Hypertension S/P coronary artery stent placement CAD (coronary atherosclerotic disease) Memory loss Hypomagnesemia Paroxysmal atrial fibrillation Osteoporosis Vitamin D deficiency (Acute) Back pain, chronic (Acute) Asthma (Acute) Allergic rhinitis (Acute) Osteoarthritis of right knee Microalbuminuria Depression (Acute) Anxiety (Acute) Multinodular goiter Type 2 diabetes mellitus (Acute) NIDDM GERD (gastroesophageal reflux disease) (Acute) Graves disease (Acute) Euthyroid per 01/31/21 thyroid studies -- no medications/issues currently, under surveillance by PCP Hyperlipidemia (Acute) Moderate obstructive sleep apnea (Acute) CPAP Pulmonary nodules (Acute) Restless legs syndrome (Acute) Patient History Medical History Meningioma Pseudoaneurysm of left femoral artery Left groin mass Abdominal distension Diaphoresis Chest discomfort Dyspnea on exertion Abnormal thyroid blood test Cough Close exposure to 2019-nCoV Conjunctivitis Close exposure to 2019-nCoV Cough productive of purulent sputum History of COVID-19 Dx 05/2020 (treated inpatient at [facility]) Asthma Well controlled Closed fracture of right distal fibula Thyroid nodule Osteoporosis Surgical History Hx of cardiac cath 06/05/2023 H/O laminectomy (~1991) cervical laminectomy. full rom S/P right knee arthroscopy History of esophagogastroduodenoscopy (EGD) History of colonoscopy History of cholecystectomy History of corneal transplant R/L Family History Father Diabetes Heart disease Hemangioma Glaucoma Asthma Mother Stroke Other No family history of adverse response to anesthesia Social History Smoking Status: Former smoker Tobacco Type: Cigarettes Age Started Using Tobacco: 16; Age Quit Using Tobacco: 51; packs per day: 1; Second Hand Exposure: No; Do You Dip or Chew Tobacco: No; Hx Alcohol Use: No Hx Substance Use: No Preferred Language: Rwandan Communication Ability: Effective Visual Impairment: No Limitations Hearing Ability: Normal Digital Print Operator Required: No Beliefs That Will Affect Care: None marital status: Current Living Situation: Alone and Spouse current occupational status: retired Other Information That Helps Us Care for You: No Feels Safe at Home: Yes Safety Concerns: Feels Safe At This Time Dental Care, Regularly: Yes Seatbelt Use: always Assistive Devices: Walker Physical Exam Physical Exam: Gen.: No acute distress. Alert. HEENT: Anicteric sclera. Neck: No JVD. Cardiac: Irregularly irregular and tachycardic. Normal S1-S2. 1/6 systolic ejection murmur. No rubs or gallops. Pulmonary: Clear to auscultation bilaterally without wheezes, rales, or rhonchi. Abdomen: Soft, nontender, nondistended, with normoactive bowel sounds. No bruits noted. Extremities: 2+ radial pulses bilaterally. No edema or cyanosis. Results & Data Vital Signs (Past 12 Hours) Vital Signs Temp Pulse Pulse Resp BP Pulse Ox Pulse Ox 01/09/25 17:00 01/09/25 14:59 37.4 C 104 H 18 125/81 91 01/09/25 12:32 95 01/09/25 12:01 120 H 01/09/25 10:53 36.8 C 67 17 135/77 94 01/09/25 08:36 01/09/25 07:27 36.9 C 73 17 150/58 H 94 01/09/25 07:00 70 Pulse Ox Pulse Ox Pulse Ox O2 Del Method O2 Del Method O2 Flow Rate O2 Flow Rate 01/09/25 17:00 92 Room Air 01/09/25 14:59 Room Air 01/09/25 12:32 92 88 L 2 01/09/25 12:01 01/09/25 10:53 Nasal Cannula 2.0 01/09/25 08:36 Nasal Cannula 2 01/09/25 07:27 Nasal Cannula 2.0 01/09/25 07:00 O2 Flow Rate O2 Flow Rate 01/09/25 17:00 01/09/25 14:59 01/09/25 12:32 2 0 01/09/25 12:01 01/09/25 10:53 01/09/25 08:36 01/09/25 07:27 01/09/25 07:00 Laboratory Results Laboratory Results - last 24 hr 01/08/25 01/09/25 01/09/25 20:35 00:29 05:51 WBC 6.33 RBC 3.90 L Hgb 11.6 L Hct 35.4 L MCV 90.8 MCH 29.7 MCHC 32.8 RDW Std Deviation 44.3 RDW Coeff of Ambreen 13.5 Plt Count 323 MPV 9.2 L Sodium 134 L 137 Potassium 3.7 4.0 Chloride 103 102 Carbon Dioxide 29 27 Anion Gap 2 L 8 BUN 21 19 Creatinine 1.03 1.01 Est Cr Clr Drug Dosing 42.2 43.4 eGFR 55.65 56.98 BUN/Creatinine Ratio 20.4 H 18.8 Glucose 157 H 141 H POC Glucose 102 H Calcium 9.6 9.9 Magnesium 1.6 L 2.4 01/09/25 01/09/25 01/09/25 07:29 11:35 16:21 WBC RBC Hgb Hct MCV MCH MCHC RDW Std Deviation RDW Coeff of Ambreen Plt Count MPV Sodium Potassium Chloride Carbon Dioxide Anion Gap BUN Creatinine Est Cr Clr Drug Dosing eGFR BUN/Creatinine Ratio Glucose POC Glucose 143 H 110 H 105 H Calcium Magnesium Diagnostic Findings On 01/09/2025, chart, labs reviewed. Labs demonstrated mild anemia (stable), normal TSH, nonelevated transaminase levels, normal magnesium, stable renal function, normal potassium. Telemetry personally reviewed as summarized above in HPI. History and physical report reviewed. Echo report reviewed as noted above in HPI. ECGs personally reviewed: ECG 01/07/2025 at 10:10 AM: Atrial flutter at 104 bpm. ECG 01/08/2025 at 7:50 AM: Atrial flutter 116 bpm. ECG 01/09/2025 at 0013: Junctional bradycardia 45 bpm. ECG 01/09/2025 at 1:18 AM: Sinus rhythm with PACs in a bigeminal pattern 60 bpm. ECG 01/09/2025 at 11:51 AM: Sinus rhythm 69 bpm ECG 01/09/2025 at 12:29 PM: Atrial flutter [address] chest 01/07/2025: No acute injury in the chest per radiology. Medications Administered Current Inpatient Medications Acetaminophen (Acetaminophen 325 Mg Tab) 650 mg PO Q4H PRN PRN Reason: Pain or Fever Stop: 02/06/25 17:12 Last Admin: 01/07/25 17:51 Dose: 650 mg Al Hydrox/Mg Hydrox/Simethicone (Aluminum/Magnesium Susp 30 Ml Udc) 15 ml PO Q4H PRN PRN Reason: Dyspepsia Stop: 02/06/25 17:12 Apixaban (Apixaban 5 Mg Tablet) 5 mg PO BID [facility] Stop: 02/06/25 20:59 Last Admin: 01/09/25 08:25 Dose: 5 mg Bupropion HCl (Bupropion Xl 300 Mg Tabcr) 300 mg PO QAM [facility] Stop: 02/07/25 08:59 Last Admin: 01/09/25 08:24 Dose: 300 mg Clopidogrel Bisulfate (Clopidogrel Bisulfate 75 Mg Tab) 75 mg PO DAILY [facility] Stop: 02/07/25 08:59 Last Admin: 01/09/25 08:24 Dose: 75 mg Dextrose (Dextrose 50% 50 Ml Syringe) 25 - 50 ml IV UD PRN; Protocol PRN Reason: Hypoglycemia Protocol Stop: 02/06/25 18:29 Escitalopram Oxalate (Escitalopram Oxalate 20 Mg Tab) 20 mg PO QAM [facility] Stop: 02/07/25 08:59 Last Admin: 01/09/25 08:25 Dose: 20 mg Fenofibrate (Fenofibrate Nanocrystallized 48 Mg Tablet) 48 mg PO QAM [facility] Stop: 02/07/25 08:59 Last Admin: 01/09/25 08:25 Dose: 48 mg Fluticasone Furoate (Fluticasone Furoate 200mcg 14 Puffs/Inhaler) 1 puffs INH DAILY [facility] Stop: 02/07/25 08:59 Last Admin: 01/09/25 08:27 Dose: 1 puffs Glucagon (Glucagon For Inj 1 Mg Vial) 1 mg SQ UD PRN; Protocol PRN Reason: Hypoglycemia Protocol Stop: 02/06/25 18:29 Glucose (Glucose 40% Gel 15 Gm Tube) 15 - 30 gm PO UD PRN; Protocol PRN Reason: Hypoglycemia Protocol Stop: 02/06/25 18:29 Glucose (Glucose 10 Tab/Tube) 4 - 8 tab PO UD PRN; Protocol PRN Reason: Hypoglycemia Protocol Stop: 02/06/25 18:29 Diltiazem HCl 125 mg/ Dextrose 125 mls @ 0 mls/hr IV .Q0M DONTE; Protocol Stop: 02/07/25 11:44 Last Titration: 01/08/25 23:37 Dose: 0 mg/hr, 0 mls/hr Insulin Aspart (Insulin Aspart Per Unit Charge) 0 units SC ACHS [facility] Stop: 02/06/25 20:59 Last Admin: 01/09/25 17:08 Dose: 4 units Isosorbide Mononitrate (Isosorbide [place] Extended Rel 30 Mg Tabcr) 30 mg PO QAM [facility] Stop: 02/07/25 08:59 Last Admin: 01/09/25 08:24 Dose: 30 mg Loratadine (Loratadine 10 Mg Tab) 10 mg PO QAM [facility] Stop: 02/07/25 08:59 Last Admin: 01/09/25 08:23 Dose: 10 mg Lorazepam (Lorazepam 0.5 Mg Tab) 0.5 mg PO TID PRN PRN Reason: anxiety or restless legs Stop: 02/06/25 17:12 Losartan Potassium (Losartan Potassium 50 Mg Tab) 50 mg PO DAILY [facility] Stop: 02/07/25 08:59 Last Admin: 01/09/25 08:24 Dose: 50 mg Magnesium Hydroxide (Magnesium Hydroxide Susp 30 Ml Udc) 30 ml PO Q12H PRN PRN Reason: Constipation Stop: 02/06/25 17:12 Magnesium Oxide (Magnesium Oxide 400 Mg Tab) 400 mg PO BID [facility] Stop: 02/07/25 20:59 Last Admin: 01/09/25 08:24 Dose: 400 mg Metoprolol Tartrate (Metoprolol Tartrate 100 Mg Tab) 100 mg PO BID [facility] Stop: 02/08/25 20:59 Miscellaneous (Ibandronate--Order Awaiting Action) 1 each N/A QS [facility] Stop: 02/07/25 00:00 Last Admin: 01/09/25 12:39 Dose: Not Given Miscellaneous (Carbohydrates For Hypoglycemia ) 15 - 30 gm PO UD PRN PRN Reason: Hypoglycemia Treatment Stop: 02/06/25 18:29 Montelukast Sodium (Montelukast Sodium 10 Mg Tablet) 10 mg PO QPM [facility] Stop: 02/06/25 20:59 Last Admin: 01/08/25 21:48 Dose: 10 mg Ondansetron HCl (Ondansetron Inj 2 Mg/Ml 2 Ml Vial) 4 mg IV Q6H PRN PRN Reason: Nausea Stop: 02/06/25 17:12 Pantoprazole Sodium (Pantoprazole 40 Mg Tab) 40 mg PO QAM [facility] Stop: 02/07/25 08:59 Last Admin: 01/09/25 08:24 Dose: 40 mg Potassium Chloride (Potassium Chloride 10 Meq Tabcr) 10 meq PO DAILY [facility] Stop: 02/07/25 16:59 Last Admin: 01/09/25 08:29 Dose: 10 meq Rosuvastatin Calcium (Rosuvastatin Calcium 20 Mg Tab) 40 mg PO DAILY [facility] Stop: 02/07/25 08:59 Last Admin: 01/09/25 08:23 Dose: 40 mg Umeclidinium/Vilanterol (Umeclidinium/Vilanterol 62.5/25mcg 7 Puffs/Inhaler) 1 puffs INH DAILY [facility] Stop: 02/07/25 08:59 Last Admin: 01/09/25 08:27 Dose: 1 puffs PG Care Time/CCT Total # of Minutes Spent Total Time Spent with Patient: Total time spent is greater than 50% in coordination of care (as documented) at patient's floor/unit and/or counseling patient: Coding Level of Care Code 64130 INT INP/OBS CARE 3/75MIN Diagnoses Atrial flutter with rapid ventricular response I48.92 Paroxysmal atrial fibrillation with RVR I48.0 Pericardial effusion I31.39 CAD (coronary atherosclerotic disease) I25.10 S/P coronary artery stent placement Z95.5 PAD (peripheral artery disease) I73.9 Hyperlipidemia E78.5 Hypertension I10
[2025-01-10 07:10] LABS: Hematocrit (blood only) 36.4 % (37.0-47.0); Hemoglobin 11.8 g/dl (12.0-16.0); Mean Corpuscular Hemoglobin 29.7 pg (25.0-34.0); Mean Corpuscular Hgb Conc 32.4 g/dL (32.0-36.0); Mean Corpuscular Volume 91.7 fL (80.0-100.0); Mean Platelet Volume 9.3 fL (9.4-12.4); Platelet Count 363 K/uL (130-400); RDW Coefficient of Variation 13.1 % (11.5-14.5); RDW Standard Deviation 44.1 fL (36.4-46.3); Red Blood Count 3.97 M/uL (4.20-5.40); White Blood Count 6.83 K/ul (4.8-10.8)
[2025-01-10 07:28] LABS: BUN Creatinine Ratio 18.2 (10-20); Creatinine Clr Calc Pharmacy 40.4 ml/min; Magnesium 1.7 mg/dl (1.7-2.4)
[2025-01-10] MEDS: MAGNESIUM SULFATE / D5W 1 GM/100 ML BAG IV ONE (09:04)
[2025-01-10] MEDS: METOPROLOL TARTRATE 100 MG TAB PO SCH (09:05)
--- NOTE | 2025-01-10 10:54 | Hospitalist Progress Note ---
Date of Service January 10, 2025 Assessment & Plan (1) Paroxysmal atrial fibrillation with RVR: Plan: Acute/stable, on Eliquis 5mg BID - Has been on metoprolol tartrate 100mg BID since yesterday evening 01/09/25, rate slightly better controlled compared to prior, mainly 90s - low 100s and some transient bumps 120-130 Adding metoprolol 50mg tonight at 9pm for additional rate control, will reassess need for rhythm control tomorrow 01/11/25 unless consistently <110 Cardiology following, appreciate recs - mag 1.7, K 4.0, goal to keep Mg >2.0 and k+ >4.0 given 1bag of mag IV Encouraged to continue walking around floor as tolerated Echo 01/08/25 showing LVEF 60-65%, no wall motion abnormalities, moderate concentric LVH, severe Left atrial dilation, moderate mitral annular calcifications, mild pulmonary HTN, small pericardial effusion with no tamponade; prior echocardiogram 04/23/24 showing LVEF >70%, severe atrial dilation (2) Hypoxia: Plan: Acute, resolving - Suspect multifactorial in setting of rib contusion from fall/mild CHF; see echo results above - CXR and CT reviewed - mild PVC and cardiomegaly noted, may benefit from a small dose of IV lasix - Hx asthma, continue trelegy inhaler On room air now, satting low-mid 90s without desats when ambulating today 01/10/25 continuing to use incentive spirometry q1 hour while awake Two-step test prior to discharge (3) Hypomagnesemia: Plan: Acute - Mag repletion to >2.0: 1.7 -> given 1bag - K+ repletion to >4.0: 4.0, daily 10meq KCl tabs (4) Fracture of proximal phalanx of digit of left hand: Plan: Acute/traumatic - Splint to be applied to left 5th digit - Recommend f/u imaging in 4 weeks to reassess healing - APAP as needed for pain (5) Asymptomatic bacteriuria: Plan: - Previously has yielded growth of E. coli - No current symptoms to suggest acute UTI, no fever or leukocytosis, no symptoms - Defer abx therapy Plan Chronic stable medical problems: 1. HTN - chronic, hold amlodipine to allow for increase in lopressor as above. continue losartan 50mg daily 2. CAD s/p RCA PCI x2 - chronic/continue plavix, imdur, and rosuvastatin 3. NIYA - can resume FeSO4, but would reduce dose to 325mg daily given not absorbed at higher dose of 650mg daily 4. Osteoporosis- hold ibandronate as it is NF in hosp. can resume upon d/c 5. NIDDM - Continue metformin. diabetic diet ordered. no need for BSG checks. Last a1c 7.3% 6. GERD - continue pantoprazole 7. SUDHAKAR - continue cpap at hs 8. Depression/anxiety - continue lexapro Dispo: tele Diet: DM2 VTE: Eliquis Admission and Anticipated Discharge Date Admission Date: January 07, 2025 Supervising Physician Co-Signing Physician Notes I personally examined the patient and verified all samuel points of history and exam, discussed case, and agree with decision making with Dr Gant Feeling okay. Discussed ongoing management of A-fib. Vitals noted, in general she is awake and alert pleasant no distress. HEENT normocephalic atraumatic mucous membranes moist. Breathing unlabored no accessory muscle use good effort. Skin without rashes pallor or icterus. A-fib predominantly low 100s on monitor with some bursting to [id number]. A-fib/RVRseems to be improving some. Continue current dosing metoprolol given that it was just started yesterday and follow. Encouraged activity. Hopefully home soon. Anticoagulated. Otherwise as above. Shari Gordon was seen and evaluated at bedside this AM, appearing and feeling well in no discomfort. Denies any concerning symptoms overnight, slept well. Currently on room air, satting low-mid 90s. States PT saw her yesterday and she did well, was able to walk around the floor without O2 supplementation without SOB or lightheadedness, however during OT she went down to 88% when ambulating, 2L NC added with O2 back up to 92%. PT is recommending home health services once stable for discharge, to continue acute PT/OT rehab while inpatient. Rates have been variable between 80-120 for the last 12hrs, cardiology following. Review of Systems Review of Systems: per HPI Physical Exam Physical Exam: General: A&Ox3, in no acute apparent distress, on room air HEENT: EOM intact, PERRL b/l, anicteric sclerae - 2cm left frontal scalp laceration with dried blood and surrounding ecchymosis, continues to decrease in area. Moist mucous membranes. Respiratory: clear to auscultation b/l, no wheeze/rales/ rhonchi CV: RRR, +s1/s2, no m/r/g GI/Abd: +BS, abdomen soft, non-tender, non-distended Ext: Left 5th digit splinted; 5/5 strength in all extremities - No b/l LE edema, non-tender to calf pa lpation, peripheral pulses +2 Neuro: no facial droop, speech intact, no focal neurological deficits. CN II-XII grossly intact. Skin: Warm, dry, intact. No rashes or lesions aside from scalp laceration Results & Data Results & Data Vital Signs (Past 12 Hours) Vital Signs Temp Pulse Pulse Resp BP BP Pulse Ox 01/10/25 07:08 37.1 C 107 H 18 149/92 H 90 01/10/25 03:31 36.7 C 102 H 17 128/90 92 01/09/25 23:35 93 H 01/09/25 23:10 36.8 C 118 H 16 125/67 90 01/09/25 22:59 O2 Del Method 01/10/25 07:08 Room Air 01/10/25 03:31 Room Air 01/09/25 23:35 01/09/25 23:10 Room Air 01/09/25 22:59 Room Air Resident Activity Tracking Resident Involvement: Resident Care Provided Care Provided: Adult Hospital Medicine
--- NOTE | 2025-01-10 16:45 | Billing Data ---
Date of Service January 10, 2025 Coding Level of Care Code 63792 SUB INP/OBS CARE MIN
--- NOTE | 2025-01-10 18:42 | Cardiology Progress Note ---
Date of Service January 10, 2025 Assessment & Plan (1) Atrial flutter with rapid ventricular response: (2) Paroxysmal atrial fibrillation with RVR: (3) Pericardial effusion: (4) CAD (coronary atherosclerotic disease): (5) S/P coronary artery stent placement: (6) PAD (peripheral artery disease): (7) Hyperlipidemia: (8) Hypertension: Plan ASSESSMENT/PLAN: 1. Paroxysmal atrial fibrillation/flutter: Previously known to have paroxysmal atrial fibrillation but atrial flutter noted this hospital stay. Asymptomatic and converted today without patient knowing. Unfortunately, rate was not adequately controlled with escalated doses of beta-hanna and with mild sinus b radycardia while in sinus, more aggressive rate control strategy seems limited, unless pacemaker is placed. Even with pacemaker, no guarantee that adequate rate control can be achieved. Given atrial flutter is more difficult to rate control, recommend rhythm control. Message sent to primary hospitalist, Dr. Bustamante, to discuss discontinuation of Lexapro to enable amiodarone. If okay, would start loading with amiodarone 400 mg twice daily for 8 days and reduce metoprolol to 50 mg twice daily. Continue anticoagulation for stroke risk reduction. 2. CAD s/p RCA PCI x 2 (and atherectomy): Continue Plavix 75 mg daily while on Eliquis 5 mg twice daily. Has had GI intolerance to aspirin in the past and feels much better with Plavix. If Plavix needs to be held for procedure, would use aspirin 81 mg once daily in its place throughout the perioperative period. Recommend antiplatelet therapy without interruption indefinitely. Continue high intensity statin therapy, nitrate therapy, ARB, and beta-hanna. 911 for angina that does not resolve within 5 minutes of nitroglycerin. 3. Peripheral arterial disease: Significant right femoral artery and right internal iliac artery disease noted on CT imaging at [facility]. 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 Follows with [facility]. 4. Dyslipidemia: Continue high intensity statin therapy with rosuvastatin. LDL currently well-controlled. LDL was not at goal with atorvastatin. Mediterranean diet. Cardiovascular exercise as able. 5. Hypertension: Blood pressure mostly normotensive. As above. 6. Pericardial effusion: Chronic and stable. 7. Junctional bradycardia: Occurred while on oral beta-hanna and intravenous diltiazem drip. Would not resume diltiazem drip at this point. No further issues noted on telemetry in this regard. 8. Disposition: Cardiology will continue to follow. Plan of care communicated with primary hospitalist, Dr. Bustamante. Admission and Anticipated Discharge Date Admission Date: January 07, 2025 Subjective Patient seen this afternoon. Atrial fibrillation converted to sinus at 1549 today. Rhythm was then sinus bradycardia in the 50s to normal sinus rhythm in the 60s. While in atrial flutter, heart rate was not adequately controlled. She denies chest pain, shortness of breath, syncope, near syncope, palpitations, or edema. She did not notice any difference whether she was in atrial flutter with rapid ventricular sponsor or sinus rhythm as she was this afternoon after converting. She was alone in her hospital room. Physical Exam Physical Exam: Gen.: No acute distress. Alert. HEENT: Anicteric sclera. Neck: No JVD. Cardiac: Regular near 60 bpm. Normal S1-S2. 1/6 systolic ejection murmur. No rubs or gallops. Pulmonary: Clear to auscultation bilaterally without wheezes, rales, or rhonchi. Abdomen: Soft, nontender, nondistended, with normoactive bowel sounds. No bruits noted. Extremities: 2+ radial pulses bilaterally. No edema or cyanosis. Results & Data Vital Signs (Past 12 Hours) Vital Signs Temp Pulse Pulse Pulse Pulse Pulse Resp 01/10/25 15:11 37.2 C 88 16 01/10/25 12:15 107 H 93 H 87 01/10/25 11:05 37.2 C 96 H 18 01/10/25 08:00 108 H 01/10/25 07:08 37.1 C 107 H 18 Resp Resp Resp BP Pulse Ox Pulse Ox Pulse Ox 01/10/25 15:11 127/75 90 01/10/25 12:15 16 16 16 94 95 01/10/25 11:05 106/79 92 01/10/25 08:00 01/10/25 07:08 149/92 H 90 Pulse Ox O2 Del Method 01/10/25 15:11 Room Air 01/10/25 12:15 92 01/10/25 11:05 Room Air 01/10/25 08:00 01/10/25 07:08 Room Air Laboratory Results Laboratory Results - last 24 hr 01/09/25 01/10/25 01/10/25 20:28 06:36 07:11 WBC 6.83 RBC 3.97 L Hgb 11.8 L Hct 36.4 L MCV 91.7 MCH 29.7 MCHC 32.4 RDW Std Deviation 44.1 RDW Coeff of Ambreen 13.1 Plt Count 363 MPV 9.3 L Sodium 137 Potassium 4.0 Chloride 103 Carbon Dioxide 26 Anion Gap 8 BUN 18 Creatinine 0.99 Est Cr Clr Drug Dosing 40.4 eGFR 58.36 BUN/Creatinine Ratio 18.2 Glucose 123 H POC Glucose 124 H 123 H Calcium 10.0 Magnesium 1.7 01/10/25 01/10/25 11:04 15:59 WBC RBC Hgb Hct MCV MCH MCHC RDW Std Deviation RDW Coeff of Ambreen Plt Count MPV Sodium Potassium Chloride Carbon Dioxide Anion Gap BUN Creatinine Est Cr Clr Drug Dosing eGFR BUN/Creatinine Ratio Glucose POC Glucose 105 H 124 H Calcium Magnesium Diagnostic Findings Telemetry personally reviewed: Atrial flutter with rapid ventricular response up to the 130s that converted to sinus rhythm at 1549 on 01/10/2025. While in sinus, heart rate 50s to low 60s. Labs reviewed and notable for mild anemia, normal potassium, stable renal function, normal magnesium. Medications Administered Current Inpatient Medications Acetaminophen (Acetaminophen 325 Mg Tab) 650 mg PO Q4H PRN PRN Reason: Pain or Fever Stop: 02/06/25 17:12 Last Admin: 01/07/25 17:51 Dose: 650 mg Al Hydrox/Mg Hydrox/Simethicone (Aluminum/Magnesium Susp 30 Ml Udc) 15 ml PO Q4H PRN PRN Reason: Dyspepsia Stop: 02/06/25 17:12 Apixaban (Apixaban 5 Mg Tablet) 5 mg PO BID [facility] Stop: 02/06/25 20:59 Last Admin: 01/10/25 09:05 Dose: 5 mg Bupropion HCl (Bupropion Xl 300 Mg Tabcr) 300 mg PO QAM DONTE Stop: 02/07/25 08:59 Last Admin: 01/10/25 09:05 Dose: 300 mg Clopidogrel Bisulfate (Clopidogrel Bisulfate 75 Mg Tab) 75 mg PO DAILY DONTE Stop: 02/07/25 08:59 Last Admin: 01/10/25 09:05 Dose: 75 mg Dextrose (Dextrose 50% 50 Ml Syringe) 25 - 50 ml IV UD PRN; Protocol PRN Reason: Hypoglycemia Protocol Stop: 02/06/25 18:29 Escitalopram Oxalate (Escitalopram Oxalate 20 Mg Tab) [facility] Stop: 02/07/25 08:59 Last Admin: 01/10/25 09:06 Dose: 20 mg Fenofibrate (Fenofibrate Nanocrystallized 48 Mg Tablet) 48 mg PO QAM [facility] Stop: 02/07/25 08:59 Last Admin: 01/10/25 09:06 Dose: 48 mg Fluticasone Furoate (Fluticasone Furoate 200mcg 14 Puffs/Inhaler) 1 puffs INH DAILY DONTE Stop: 02/07/25 08:59 Last Admin: 01/10/25 09:05 Dose: 1 puffs Glucagon (Glucagon For Inj 1 Mg Vial) 1 mg SQ UD PRN; Protocol PRN Reason: Hypoglycemia Protocol Stop: 02/06/25 18:29 Glucose (Glucose 40% Gel 15 Gm Tube) 15 - 30 gm PO UD PRN; Protocol PRN Reason: Hypoglycemia Protocol Stop: 02/06/25 18:29 Glucose (Glucose 10 Tab/Tube) 4 - 8 tab PO UD PRN; Protocol PRN Reason: Hypoglycemia Protocol Stop: 02/06/25 18:29 Insulin Aspart (Insulin Aspart Per Unit Charge) 0 units SC [facility] Stop: 02/06/25 20:59 Last Admin: 01/10/25 17:51 Dose: 5 units Isosorbide Mononitrate (Isosorbide [place] Extended Rel 30 Mg Tabcr) 30 mg PO QAM [facility] Stop: 02/07/25 08:59 Last Admin: 01/10/25 09:05 Dose: 30 mg Loratadine (Loratadine 10 Mg Tab) 10 mg PO QAM [facility] Stop: 02/07/25 08:59 Last Admin: 01/10/25 09:05 Dose: 10 mg Lorazepam (Lorazepam 0.5 Mg Tab) 0.5 mg PO TID PRN PRN Reason: anxiety or restless legs Stop: 02/06/25 17:12 Losartan Potassium (Losartan Potassium 50 Mg Tab) 50 mg PO DAILY [facility] Stop: 02/07/25 08:59 Last Admin: 01/10/25 09:05 Dose: 50 mg Magnesium Hydroxide (Magnesium Hydroxide Susp 30 Ml Udc) 30 ml PO Q12H PRN PRN Reason: Constipation Stop: 02/06/25 17:12 Magnesium Oxide (Magnesium Oxide 400 Mg Tab) 400 mg PO BID DONTE Stop: 02/07/25 20:59 Last Admin: 01/10/25 09:05 Dose: 400 mg Metoprolol Tartrate (Metoprolol Tartrate 100 Mg Tab) 100 mg PO BID DONTE Stop: 02/09/25 08:59 Last Admin: 01/10/25 09:05 Dose: 100 mg Miscellaneous (Ibandronate--Order Awaiting Action) 1 each N/A QS DONTE Stop: 02/07/25 00:00 Last Admin: 01/10/25 17:15 Dose: Not Given Miscellaneous (Carbohydrates For Hypoglycemia ) 15 - 30 gm PO UD PRN PRN Reason: Hypoglycemia Treatment Stop: 02/06/25 18:29 Montelukast Sodium (Montelukast Sodium 10 Mg Tablet) 10 mg PO QPM DONTE Stop: 02/06/25 20:59 Last Admin: 01/09/25 20:54 Dose: 10 mg Ondansetron HCl (Ondansetron Inj 2 Mg/Ml 2 Ml Vial) 4 mg IV Q6H PRN PRN Reason: Nausea Stop: 02/06/25 17:12 Pantoprazole Sodium (Pantoprazole 40 Mg Tab) 40 mg PO QAM DONTE Stop: 02/07/25 08:59 Last Admin: 01/10/25 09:05 Dose: 40 mg Potassium Chloride (Potassium Chloride 10 Meq Tabcr) 10 meq PO DAILY DONTE Stop: 02/07/25 16:59 Last Admin: 01/10/25 09:05 Dose: 10 meq Rosuvastatin Calcium (Rosuvastatin Calcium 20 Mg Tab) 40 mg PO DAILY DONTE Stop: 02/07/25 08:59 Last Admin: 01/10/25 09:04 Dose: 40 mg Umeclidinium/Vilanterol (Umeclidinium/Vilanterol 62.5/25mcg 7 Puffs/Inhaler) 1 puffs INH DAILY DONTE Stop: 02/07/25 08:59 Last Admin: 01/10/25 09:05 Dose: 1 puffs PG Care Time/CCT Total # of Minutes Spent Total Time Spent with Patient: Total time spent is greater than 50% in coordination of care (as documented) at patient's floor/unit and/or counseling patient: Coding Level of Care Code 64518 SUB INP/OBS CARE 350MIN Diagnoses Atrial flutter with rapid ventricular response I48.92 Paroxysmal atrial fibrillation with RVR I48.0 Pericardial effusion I31.39 CAD (coronary atherosclerotic disease) I25.10 S/P coronary artery stent placement Z95.5 PAD (peripheral artery disease) I73.9 Hyperlipidemia E78.5 Hypertension I10
[2025-01-10] MEDS: AMIODARONE 200 MG TAB PO SCH (20:56)
[2025-01-10] MEDS: METOPROLOL TARTRATE 50 MG TAB PO SCH (20:56)
--- NOTE | 2025-01-11 06:09 | Electrocardiogram Report ---
Test Reason : Blood Pressure : */* mmHG Vent. Rate : 116 BPM Atrial Rate : * BPM P-R Int : * ms QRS Dur : 82 ms QT Int : 328 ms P-R-T Axes : * 34 36 degrees QTcB Int : 455 ms Atrial flutter with rapid ventricular response Nonspecific ST abnormality Abnormal ECG When compared with ECG of 07-Jan-2025 10:10, QRS axis Shifted right Confirmed by Zohaib Singh ([id number] on 01/11/2025 6:09:17 AM Referred By: REFERRED SELF Confirmed By: Zohaib Singh
--- NOTE | 2025-01-11 06:42 | Hospitalist Progress Note ---
Date of Service January 11, 2025 Assessment & Plan (1) Paroxysmal atrial fibrillation with RVR: Plan: Acute/stable, on Eliquis 5mg BID - Has been on metoprolol tartrate 100mg BID since yesterday evening 01/09/25, rate slightly better controlled compared to prior, mainly 90s - low 100s and some transient bumps 120-130 Adding metoprolol 50mg tonight at 9pm for additional rate control, will reassess need for rhythm control tomorrow 01/11/25 unless consistently <110 Cardiology following, appreciate recs - mag 1.7, K 4.0, goal to keep Mg >2.0 and k+ >4.0 given 1bag of mag IV Encouraged to continue walking around floor as tolerated Echo 01/08/25 showing LVEF 60-65%, no wall motion abnormalities, moderate concentric LVH, severe Left atrial dilation, moderate mitral annular calcifications, mild pulmonary HTN, small pericardial effusion with no tamponade; prior echocardiogram 04/23/24 showing LVEF >70%, severe atrial dilation (2) Hypoxia: Plan: Acute, resolving - Suspect multifactorial in setting of rib contusion from fall/mild CHF; see echo results above - CXR and CT reviewed - mild PVC and cardiomegaly noted, may benefit from a small dose of IV lasix - Hx asthma, continue trelegy inhaler On room air now, satting low-mid 90s without desats when ambulating today 01/10/25 continuing to use incentive spirometry q1 hour while awake Two-step test prior to discharge (3) Hypomagnesemia: Plan: Acute - Mag repletion to >2.0: 1.7 -> given 1bag - K+ repletion to >4.0: 4.0, daily 10meq KCl tabs (4) Fracture of proximal phalanx of digit of left hand: Plan: Acute/traumatic - Splint to be applied to left 5th digit - Recommend f/u imaging in 4 weeks to reassess healing - APAP as needed for pain (5) Asymptomatic bacteriuria: Plan: - Previously has yielded growth of E. coli - No current symptoms to suggest acute UTI, no fever or leukocytosis, no symptoms - Defer abx therapy Plan Chronic stable medical problems: 1. HTN - chronic, hold amlodipine to allow for increase in lopressor as above. continue losartan 50mg daily 2. CAD s/p RCA PCI x2 - chronic/continue plavix, imdur, and rosuvastatin 3. NIYA - can resume FeSO4, but would reduce dose to 325mg daily given not absorbed at higher dose of 650mg daily 4. Osteoporosis- hold ibandronate as it is NF in hosp. can resume upon d/c 5. NIDDM - Continue metformin. diabetic diet ordered. no need for BSG checks. Last a1c 7.3% 6. GERD - continue pantoprazole 7. SUDHAKAR - continue cpap at hs 8. Depression/anxiety - continue lexapro Dispo: tele Diet: DM2 VTE: Eliquis Admission and Anticipated Discharge Date Admission Date: January 07, 2025 Shari Gordon was seen and evaluated at bedside this AM, _ Review of Systems Review of Systems: per HPI Physical Exam Physical Exam: General: A&Ox3, in no acute apparent distress, on room air HEENT: EOM intact, PERRL b/l, anicteric sclerae - 2cm left frontal scalp laceration with dried blood and surrounding ecchymosis, continues to decrease in area. Moist mucous membranes. Respiratory: clear to auscultation b/l, no wheeze/rales/ rhonchi CV: RRR, +s1/s2, no m/r/g GI/Abd: +BS, abdomen soft, non-tender, non-distended Ext: Left 5th digit splinted; 5/5 strength in all extremities - No b/l LE edema, non-tender to calf pa lpation, peripheral pulses +2 Neuro: no facial droop, speech intact, no focal neurological deficits. CN II-XII grossly intact. Skin: Warm, dry, intact. No rashes or lesions aside from scalp laceration Results & Data Results & Data Vital Signs (Past 12 Hours) Vital Signs Temp Pulse Pulse Resp BP BP Pulse Ox 01/11/25 02:59 36.8 C 66 16 127/73 90 01/11/25 00:27 62 01/10/25 23:26 36.6 C 63 17 109/61 94 01/10/25 19:38 36.7 C 65 19 111/66 95 O2 Del Method 01/11/25 02:59 Room Air 01/11/25 00:27 01/10/25 23:26 Room Air 01/10/25 19:38 Room Air
[2025-01-11 07:18] VITALS: RESP 18; O2SAT 91
[2025-01-11 07:45] LABS: Hemoglobin 11.5 g/dl (12.0-16.0); Mean Corpuscular Hemoglobin 29.4 pg (25.0-34.0); Mean Corpuscular Hgb Conc 31.9 g/dL (32.0-36.0); Mean Corpuscular Volume 92.1 fL (80.0-100.0); Mean Platelet Volume 9.4 fL (9.4-12.4); Platelet Count 399 K/uL (130-400); RDW Coefficient of Variation 13.5 % (11.5-14.5); RDW Standard Deviation 45.5 fL (36.4-46.3); Red Blood Count 3.91 M/uL (4.20-5.40); White Blood Count 5.28 K/ul (4.8-10.8)
[2025-01-11 07:57] LABS: BUN Creatinine Ratio 22.4 (10-20); Creatinine Clr Calc Pharmacy 37.4 ml/min; Magnesium 1.9 mg/dl (1.7-2.4); Potassium 4.2 mmol/L (3.5-5.1)
--- NOTE | 2025-01-11 10:46 | Cardiology Progress Note ---
Date of Service January 11, 2025 Assessment & Plan (1) Atrial flutter with rapid ventricular response: (2) Paroxysmal atrial fibrillation with RVR: (3) Pericardial effusion: (4) CAD (coronary atherosclerotic disease): (5) S/P coronary artery stent placement: (6) PAD (peripheral artery disease): (7) Hyperlipidemia: (8) Hypertension: Plan ASSESSMENT/PLAN: 1. Paroxysmal atrial fibrillation/flutter: Previously known to have paroxysmal atrial fibrillation but atrial flutter noted this hospital stay. Has been spontaneously converting. Rate has not been adequately controlled despite escalating beta-hanna and when in sinus, was noted to be in the upper 50s to lower 60s, likely limiting more aggressive beta-blockade. Continue amiodarone 400 mg twice daily for a total of 8 days and then reduce to 200 mg daily. Continue anticoagulation for stroke risk reduction. Monitor CBC, renal function. Monitor transaminase levels and TSH with periodic ECG while on amiodarone. Lexapro discontinued due to concern for prolonged QT while on amiodarone. 2. CAD s/p RCA PCI x 2 (and atherectomy): Continue Plavix 75 mg daily while on Eliquis 5 mg twice daily. Has had GI intolerance to aspirin in the past and feels much better with Plavix. If Plavix needs to be held for procedure, would use aspirin 81 mg once daily in its place throughout the perioperative period. Recommend antiplatelet therapy without interruption indefinitely. Continue high intensity statin therapy, nitrate therapy, ARB, and beta-hanna. 911 for angina that does not resolve within 5 minutes of nitroglycerin. 3. Peripheral arterial disease: Significant right femoral artery and right int ernal iliac artery disease noted on CT imaging at [facility] [place]. 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 Follows with [facility]. 4. Dyslipidemia: Continue high intensity statin therapy with rosuvastatin. LDL currently well-controlled. LDL was not at goal with atorvastatin. Mediterranean diet. Cardiovascular exercise as able. 5. Hypertension: Blood pressure mostly normotensive. As above. 6. Pericardial effusion: Chronic and stable. 7. Junctional bradycardia: Occurred while on oral beta-hanna and intravenous diltiazem drip. Would not resume diltiazem drip at this point. No further issues noted on telemetry in this regard. 8. Disposition: Can be discharged from a cardiology perspective. She already has follow-up within the next 2 weeks and should keep that appointment. ECG at that appointment. Plan of care discussed with primary hospitalist, Dr. Bustamante. Notified patient's daughter with patient's permission, Kandice, to update her in regards to the amiodarone and Lexapro. Any questions were answered. Admission and Anticipated Discharge Date Admission Date: January 07, 2025 Subjective Patient was seen this morning. She developed atrial flutter again this morning at approximately 8:35 AM. It is with rapid ventricular response. She recalls feeling intermittent palpitations earlier but none currently despite still being in atrial flutter. She denies chest pain, shortness of breath, syncope, near syncope, edema, or bleeding. She was unaccompanied. Physical Exam Physical Exam: Gen.: No acute distress. Alert. HEENT: Anicteric sclera. Neck: No JVD. Cardiac: Irregularly irregular. Tachycardic. Normal S1-S2. 1/6 systolic ejection murmur. No rubs or gallops. Pulmonary: Clear to auscultation bilaterally without wheezes, rales, or rhonchi. Abdomen: Soft, nontender, nondistended, with normoactive bowel sounds. No bruits noted. Extremities: 2+ radial pulses bilaterally. No edema or cyanosis. Results & Data Vital Signs (Past 12 Hours) Vital Signs Temp Pulse Pulse Resp BP BP Pulse Ox 01/11/25 07:17 37.0 C 64 18 133/76 91 01/11/25 02:59 36.8 C 66 16 127/73 90 01/11/25 00:27 62 01/10/25 23:26 36.6 C 63 17 109/61 94 O2 Del Method 01/11/25 07:17 Room Air 01/11/25 02:59 Room Air 01/11/25 00:27 01/10/25 23:26 Room Air Laboratory Results Laboratory Results - last 24 hr 01/10/25 01/10/25 01/10/25 11:04 15:59 20:28 WBC RBC Hgb Hct MCV MCH MCHC RDW Std Deviation RDW Coeff of Ambreen Plt Count MPV Sodium Potassium Chloride Carbon Dioxide Anion Gap BUN Creatinine Est Cr Clr Drug Dosing eGFR BUN/Creatinine Ratio Glucose POC Glucose 105 H 124 H 116 H Calcium Magnesium 01/11/25 01/11/25 06:33 07:16 WBC 5.28 RBC 3.91 L Hgb 11.5 L Hct 36.0 L MCV 92.1 MCH 29.4 MCHC 31.9 L RDW Std Deviation 45.5 RDW Coeff of Ambreen 13.5 Plt Count 399 MPV 9.4 Sodium 138 Potassium 4.2 Chloride 102 Carbon Dioxide 29 Anion Gap 7 BUN 24 H Creatinine 1.07 Est Cr Clr Drug Dosing 37.4 eGFR 53.17 BUN/Creatinine Ratio 22.4 H Glucose 117 H POC Glucose 122 H Calcium 10.0 Magnesium 1.9 Diagnostic Findings Labs reviewed and notable for stable renal function, normal potassium, mild anemia. Telemetry personally reviewed: Currently in atrial flutter. Had been in sinus rhythm until approximately 8:35 AM this morning. Medications Administered Current Inpatient Medications Acetaminophen (Acetaminophen 325 Mg Tab) 650 mg PO Q4H PRN PRN Reason: Pain or Fever Stop: 02/06/25 17:12 Last Admin: 01/07/25 17:51 Dose: 650 mg Al Hydrox/Mg Hydrox/Simethicone (Aluminum/Magnesium Susp 30 Ml Udc) 15 ml PO Q4H PRN PRN Reason: Dyspepsia Stop: 02/06/25 17:12 Amiodarone HCl (Amiodarone 200 Mg Tab) 400 mg PO BID [facility] Stop: 02/09/25 20:59 Last Admin: 01/11/25 08:54 Dose: 400 mg Apixaban (Apixaban 5 Mg Tablet) 5 mg PO BID DONTE Stop: 02/06/25 20:59 Last Admin: 01/11/25 08:53 Dose: 5 mg Bupropion HCl (Bupropion Xl 300 Mg Tabcr) 300 mg PO QAM DONTE Stop: 02/07/25 08:59 Last Admin: 01/11/25 08:54 Dose: 300 mg Clopidogrel Bisulfate (Clopidogrel Bisulfate 75 Mg Tab) 75 mg PO DAILY [facility] Stop: 02/07/25 08:59 Last Admin: 01/11/25 08:54 Dose: 75 mg Dextrose (Dextrose 50% 50 Ml Syringe) 25 - 50 ml IV UD PRN; Protocol PRN Reason: Hypoglycemia Protocol Stop: 02/06/25 18:29 Fenofibrate (Fenofibrate Nanocrystallized 48 Mg Tablet) 48 mg PO QAM DONTE Stop: 02/07/25 08:59 Last Admin: 01/11/25 08:54 Dose: 48 mg Fluticasone Furoate (Fluticasone Furoate 200mcg 14 Puffs/Inhaler) 1 puffs INH DAILY DONTE Stop: 02/07/25 08:59 Last Admin: 01/11/25 08:57 Dose: 1 puffs Glucagon (Glucagon For Inj 1 Mg Vial) 1 mg SQ UD PRN; Protocol PRN Reason: Hypoglycemia Protocol Stop: 02/06/25 18:29 Glucose (Glucose 40% Gel 15 Gm Tube) 15 - 30 gm PO UD PRN; Protocol PRN Reason: Hypoglycemia Protocol Stop: 02/06/25 18:29 Glucose (Glucose 10 Tab/Tube) 4 - 8 tab PO UD PRN; Protocol PRN Reason: Hypoglycemia Protocol Stop: 02/06/25 18:29 Insulin Aspart (Insulin Aspart Per Unit Charge) 0 units SC ACHS DONTE Stop: 02/06/25 20:59 Last Admin: 01/11/25 09:01 Dose: 4 units Isosorbide Mononitrate (Isosorbide [place] Extended Rel 30 Mg Tabcr) 30 mg PO QAM DONTE Stop: 02/07/25 08:59 Last Admin: 01/11/25 08:54 Dose: 30 mg Loratadine (Loratadine 10 Mg Tab) 10 mg PO QAM DONTE Stop: 02/07/25 08:59 Last Admin: 01/11/25 08:53 Dose: 10 mg Lorazepam (Lorazepam 0.5 Mg Tab) 0.5 mg PO TID PRN PRN Reason: anxiety or restless legs Stop: 02/06/25 17:12 Losartan Potassium (Losartan Potassium 50 Mg Tab) 50 mg PO DAILY DONTE Stop: 02/07/25 08:59 Last Admin: 01/11/25 08:54 Dose: 50 mg Magnesium Hydroxide (Magnesium Hydroxide Susp 30 Ml Udc) 30 ml PO Q12H PRN PRN Reason: Constipation Stop: 02/06/25 17:12 Magnesium Oxide (Magnesium Oxide 400 Mg Tab) 400 mg PO BID DONTE Stop: 02/07/25 20:59 Last Admin: 01/11/25 08:55 Dose: 400 mg Metoprolol Tartrate (Metoprolol Tartrate 50 Mg Tab) 50 mg PO BID DONTE Stop: 02/09/25 20:59 Last Admin: 01/11/25 08:54 Dose: 50 mg Miscellaneous (Ibandronate--Order Awaiting Action) 1 each N/A QS DONTE Stop: 02/07/25 00:00 Last Admin: 01/11/25 08:59 Dose: Not Given Miscellaneous (Carbohydrates For Hypoglycemia ) 15 - 30 gm PO UD PRN PRN Reason: Hypoglycemia Treatment Stop: 02/06/25 18:29 Montelukast Sodium (Montelukast Sodium 10 Mg Tablet) 10 mg PO QPM DONTE Stop: 02/06/25 20:59 Last Admin: 01/10/25 20:57 Dose: 10 mg Ondansetron HCl (Ondansetron Inj 2 Mg/Ml 2 Ml Vial) 4 mg IV Q6H PRN PRN Reason: Nausea Stop: 02/06/25 17:12 Pantoprazole Sodium (Pantoprazole 40 Mg Tab) 40 mg PO QAM [facility] Stop: 02/07/25 08:59 Last Admin: 01/11/25 08:54 Dose: 40 mg Potassium Chloride (Potassium Chloride 10 Meq Tabcr) 10 meq PO DAILY DONTE Stop: 02/07/25 16:59 Last Admin: 01/11/25 09:01 Dose: 10 meq Rosuvastatin Calcium (Rosuvastatin Calcium 20 Mg Tab) 40 mg PO DAILY DONTE Stop: 02/07/25 08:59 Last Admin: 01/11/25 08:53 Dose: 40 mg Umeclidinium/Vilanterol (Umeclidinium/Vilanterol 62.5/25mcg 7 Puffs/Inhaler) 1 puffs INH DAILY DONTE Stop: 02/07/25 08:59 Last Admin: 01/11/25 08:56 Dose: 1 puffs PG Care Time/CCT Total # of Minutes Spent Total Time Spent with Patient: Total time spent is greater than 50% in coordination of care (as documented) at patient's floor/unit and/or counseling patient: Coding Level of Care Code 74119 SUB INP/OBS CARE 3/50MIN Diagnoses Atrial flutter with rapid ventricular response I48.92 Paroxysmal atrial fibrillation with RVR I48.0 Pericardial effusion I31.39 CAD (coronary atherosclerotic disease) I25.10 S/P coronary artery stent placement Z95.5 PAD (peripheral artery disease) I73.9 Hyperlipidemia E78.5 Hypertension I10
[2025-01-11 11:39] VITALS: PULSE 78; TEMP 98.8
[2025-01-11 14:25] VITALS: BP 109/61
--- NOTE | 2025-01-11 17:05 | Discharge Summary ---
Date of Service January 11, 2025 Admission HPI Per Admitting Provider Heidi is a 79 yo F with a pmhx of CAD s/p PCI to RCA x2, most recent in May 2023, as well as paroxysmal afib, chronic ASTUDILLO, ?asthma with former h/o smoking 1ppd x15 yrs wtih continued smoke exposure from her who presents to the ER today following a fall that she sustained in her home on 26 in AM. She reports that she was coming upstairs from the basement when she heard the phone ring, her shoe got stuck/caught and she fell forward to the left, striking her head off of the corner of a piece of furniture. She also attempted to brace her fall, hit her left hand and left chest wall. She delayed coming in to be evaluated because she stated "I'm that type of person." She denies headache, blurred vision, or neurologic symptoms of focal weakness, numbness or tingling. She has a h/o afib since 2019 that has been paroxysmal. According to cardiology's last note in March 2024, she [place] [facility] [place] and is managed with Lopressor 50mg BID and Eliquis. There has been some consideration for antiarrhythmic therapy versus ablation if her afib burden worsens. She also endorse ASTUDILLO that has been present for many months. She has a h/o [id number] smoking cigarettes and then quit (35 yrs ago), however, her continues to smoke. She also reports some left sided rib pain that is worse with deep breaths. In the ER, she was brought in as a trauma alert. Her panscans came back WNL with exception of a small displaced left pinky fx distal PIP joint. Old rib fx noted but nothing acute. EKG noted afib at 104 bpm but rate is variable and jumps up to 130s at rest. She has been medicated with diltiazem 10mg IV x2 but her rate is still uncontrolled. She took her metoprolol this AM. Her magnesium came back at 1.5, potassium 3.8. Resp biofire is pending. She denies URI sx, but is having hypoxia with sats 88-89% on room air for which she was placed on supplemental O2. She has been referred to hospital medicine team for admission for further care. Admission Exam Per Admitting Provider GENERAL: 79 yo well-nourished elderly WF. Awake, alert and oriented x3. No distress. EYES: EOMI. PERRLA. Anicteric. HENT: Left frontal scalp laceration with surrounding ecchymosis. Moist mucous membranes. LUNGS: Scant crackles RLL otherwise CTA. No accessory muscle use. CARDIOVASCULAR: Irregular rate and rhythm ABDOMEN: Soft, non-tender and non-distended. No palpable masses. Bowel sounds normoactive x 4 quad. EXTREMITIES: Left 5th digit with swelling, ecchymosis and TTP. No b/l LE edema. Non-tender. Peripheral pulses +2/4. NEUROLOGIC: No focal neurological deficits. CN II-XII grossly intact. PSYCHIATRIC: Cooperative. Appropriate mood and affect. SKIN: Warm, dry, intact. No rashes or lesions. Principal Diagnosis atrial fibrillation with RVR Discharge Exam General: A&Ox3, in no acute apparent distress, on room air HEENT: EOM intact, PERRL b/l, anicteric sclerae - 2cm left frontal scalp laceration with dried blood and surrounding ecchymosis, continues to decrease in area, mild tenderness to palpation. Moist mucous membranes. Respiratory: clear to auscultation b/l, no wheeze/rales/ rhonchi CV: RRR, +s1/s2, no m/r/g GI/Abd: +BS, abdomen soft, non-tender, non-distended Ext: Left 5th digit splinted; 5/5 strength in all extremities - No b/l LE edema, non-tender to calf palpation, peripheral pulses +2 Neuro: no facial droop, speech intact, no focal neurological deficits. CN II-XII grossly intact. Skin: Warm, dry, intact. No rashes or lesions aside from scalp laceration Discharge Data Allergies Allergy/AdvReac Type Severity Reaction Status Date / Time codeine Allergy Intermediate Vomiting & Verified 01/07/25 12:09 hallucinations sulfamethoxazole Allergy Intermediate Rash Verified 01/07/25 12:09 [From Bactrim] trimethoprim [From Bactrim] Allergy Intermediate Rash Verified 01/07/25 12:09 Consultations 01/07/25 13:26 ED Decision to Admit Stat 01/09/25 00:26 Consult Cardiology Routine Ordered Studies 01/07/25 09:19 CT abd pelvis IV con only Stat CT cervical spine wo con Stat CT chest diagnostic w con Stat CT head/brain wo con Stat Hospital Course (1) Paroxysmal atrial fibrillation with RVR: Acute/stable, on Eliquis 5mg BID Started on amiodarone 400mg BID, to continue for 7 days starting tomorrow 01/12/25 and then decrease to 200mg BID thereafter Additionally take metoprolol tartrate 50mg BID Echo 01/08/25 showing LVEF 60-65%, no wall motion abnormalities, moderate concentric LVH, severe Left atrial dilation, moderate mitral annular calcifications, mild pulmonary HTN, small pericardial effusion with no tamponad e; prior echocardiogram 04/23/24 showing LVEF >70%, severe atrial dilation (2) Hypoxia: Acute, resolving - Suspect multifactorial in setting of rib contusion from fall/mild CHF; see echo results above - CXR and CT reviewed - mild PVC and cardiomegaly noted, may benefit from a small dose of IV lasix - Hx asthma, continue trelegy inhaler On room air now, satting low-mid 90s without desats when ambulating today 01/11/25 continuing to use incentive spirometry q1 hour while awake Two-step test prior to discharge (3) Hypomagnesemia: Acute - Mag repletion to >2.0: 1.7 -> given 1bag - K+ repletion to >4.0: 4.0, daily 10meq KCl tabs (4) Fracture of proximal phalanx of digit of left hand: Acute/traumatic - Splint to be applied to left 5th digit - Recommend f/u imaging in 4 weeks to reassess healing - APAP as needed for pain (5) Asymptomatic bacteriuria: - Previously has yielded growth of E. coli - No current symptoms to suggest acute UTI, no fever or leukocytosis, no symptoms - Defer abx therapy Plan Chronic stable medical problems: 1. HTN - chronic, hold amlodipine to allow for increase in lopressor as above. continue losartan 50mg daily 2. CAD s/p RCA PCI x2 - chronic/continue plavix, imdur, and rosuvastatin 3. NIYA - can resume FeSO4, but would reduce dose to 325mg daily given not absorbed at higher dose of 650mg daily 4. Osteoporosis- hold ibandronate as it is NF in hosp. can resume upon d/c 5. NIDDM - Continue metformin. diabetic diet ordered. no need for BSG checks. Last a1c 7.3% 6. GERD - continue pantoprazole 7. SUDHAKAR - continue cpap at hs 8. Depression/anxiety - continue lexapro Dispo: tele Diet: DM2 VTE: Eliquis Total Time Total Time Spent Total Time Spent (In Minutes): <30 Discharge Plan Discharge Items Patient Disposition: Home - Home Health Services Reason For Visit: FALL, AFIB W/ RVR Discharge Diagnosis: afib/aflutter w/ RVR Activity: Per Instructions section Non-emergency contact: Primary Care Provider and Preforming Machine Operator Call non-emergency contact if: your symptoms worsen and your pain is not controlled Follow-up/Referrals: Rico Arevalo MD [Primary Care Provider] - 01/14/25 9:00 am (Hospital follow up scheduled on 01/14/25 at 9:00 with PCP office) Diet: Carb Consistent or DM2 Addtl Attending Provider Instructions: You were evaluated and treated at [facility] for symptomatic atrial fibrillation with RVR and possibly related fall resulting in head trauma. Thankfully imaging of your head shows no indication of intracranial bleed or injury, but you did sustain a laceration to your L forehead which has been healing well. We have been ensuring you are oxygenating adequately, and have improved over the past few days to not require any supplemental oxygen, even when walking around the floor. We have additionally been repleting any electrolytes that have been deficient, such as potassium and magnesium. We had some difficulty keeping your heart rate controlled, as we tried incr easing metoprolol, adding diltiazem drip, and eventually Dr. Singh's suggestion of adding amiodarone 400mg BID while on metoprolol 50mg BID so far has kept your rates well managed mainly in 60s-70s. Please continue this regimen: amiodarone 400mg BID for 8 days, then 200mg BID thereafter; remain on metoprolol tartrate 50mg BID. Continue your Eliquis (apixaban) 5mg BID. Because amiodarone has properties that can cause QT-prolongation, we have opted to hold your Lexapro (also a QT-prolonging agent) at this time so that your heart doesn't go into a potentially dangerous arrhythmia. Once we reduce your amiodarone dosage to 200mg after the initial 8 days, we can reconsider adding your Lexapro back at a low dose at the discretion of your emergency response technician and PCP/psychiatrist. Thank you for allowing us to participate in your care. Pending Studies at Discharge: No Stand-Alone Forms: [facility], Smoking Cessation Medications and DC Order Prescriptions: New amiodarone 200 mg Tablet 400 mg PO BID Qty: 15 0RF Rx Instructions: Please take 400mg (2 tablets) twice daily dosing for a total of 8 days: 1 more PM dose and then twice a day for 7 more days once out of the hospital amiodarone 200 mg tablet 200 mg PO BID 30 Days Qty: 60 0RF Rx Instructions: PLEASE DO NOT START THIS RX--200mg (1 tablet) twice daily-- only AFTER you finish your initial 8 days of the 400mg twice daily dosing Continued albuterol sulfate [Ventolin HFA] 90 mcg/actuation HFA aerosol inhaler 2 puff INH QID PRN (Reason: shortness of breath or wheezing) Qty: 18 5RF Rx Instructions: Please substitute least expensive albuterol inhaler. Eliquis 5 mg tablet 5 mg PO BID Qty: 180 3RF fenofibrate 54 mg tablet 54 mg PO QAM Qty: 90 3RF Myrbetriq 50 mg tablet extended release 24 hr 50 mg PO QAM Qty: 90 3RF rosuvastatin [Crestor] 40 mg tablet 40 mg PO DAILY Qty: 90 3RF bupropion HCl 300 mg tablet extended release 24 hr 300 mg PO QAM Qty: 90 3RF metformin 500 mg tablet 500 mg PO BID Qty: 200 3RF Trelegy Ellipta 200-62.5-25 mcg blister with device 1 inh inhalation DAILY Qty: 180 3RF Rx Instructions: rinse mouth and gargle after usage losartan 50 mg tablet 50 mg PO DAILY Qty: 90 3RF ibandronate 150 mg tablet 150 mg PO MONTHLY Qty: 3 3RF Rx Instructions: as directed. montelukast [Singulair] 10 mg tablet 10 mg PO QPM Qty: 90 3RF metoprolol tartrate 50 mg tablet 50 mg PO BID Qty: 180 3RF lorazepam 0.5 mg tablet 0.5 mg PO TID PRN (Reason: anxiety or restless legs) Qty: 90 0RF Patient Comments: Per daughter she takes every night at bedtime (DME) Accu-Chek Sandy Plus test strp Strip See Rx Instructions .Route Qty: 100 3RF Rx Instructions: check once daily As directed DX:E11.9 (DME) OneTouch Ultra Test Strip See Rx Instructions .Route Qty: 100 4RF Rx Instructions: onetouch ultra in vitro strip; check sugars once a day; DX E11.9 amlodipine 2.5 mg tablet 2.5 mg PO DAILY Qty: 90 3RF nitroglycerin 0.4 mg tablet, sublingual 0.4 mg sublingual Q5M PRN (Reason: chest pain) Qty: 25 0RF Rx Instructions: do not exceed 3 doses per episode ferrous sulfate 325 mg (65 mg iron) tablet 650 mg PO DAILY magnesium oxide 400 mg magnesium capsule 400 mg PO DAILY Rx Instructions: per daughter she takes once a day clopidogrel 75 mg tablet 75 mg PO DAILY (DME) Auto Titrating CPAP Misc See Rx Instructions .Route Qty: 1 0RF Rx Instructions: 4- 15 pressure loratadine [Allergy Relief (loratadine)] 10 mg tablet 10 mg PO QAM vitamin B complex Tablet 1 tab PO QAM isosorbide mononitrate 30 mg tablet extended release 24 hr 0 mg PO QAM Rx Instructions: Per caregiver, they are unsure of this medication. Original Directions: 30mg by mouth QAM pantoprazole [Protonix] 40 mg tablet,delayed release (DR/EC) 0 mg PO QAM Rx Instructions: Per caregiver, they are unsure of this medication. Original Directions: 40mg by mouth QAM Discontinued escitalopram oxalate [Lexapro] 20 mg tablet 20 mg PO QAM Qty: 90 3RF Discharge Orders: Discharge Order (Routine); Ordered 01/11/25 Ordered By: Ramone Wilhelm/Other Patient Handouts: AFib Dc, AFib Admission Data Admit Date/Time: 01/07/25 15:06 Attending Provider: Sixto Bustamante Admit Provider: Rm Frye Primary Care Provider: Rico Arevalo Other Providers: Rm Frye; Hugo Hicks; Dvaid Pryor; Lisandro Gallo; Migue Ugalde; Bill Kline; Erick Posada Jr; Zohaib Singh; Neda Mc; Amanda Castillo; Greg Love; Greg Baig; Rafita Mccloud; Aria Forrest; Mark Soni; Ana Guerrier; Mark Benton; Dav Magallanes; [facility] Other Interventions: Discharge Summary Assessment (RN) Last Done: 01/11/25 14:24 Supervising Physician Co-Signing Physician Notes I personally examined the patient and verified all samuel points of history and exam, discussed case, and agree with decision making with Dr Gant feels fine and would like to go home. Vitals noted, in general she is awake and alert pleasant no distress. HEENT normocephalic atraumatic mucous membranes moist. Breathing unlabored no accessory muscle use good effort. Skin without rashes pallor or icterus. was in sinus - back to fib - but rates overall better A-fib/RVRimproving on amio. safe for home with metop/amio. close outpt follow up Resident Activity Tracking Resident Involvement: Resident Care Provided Care Provided: Adult Hospital Medicine
--- NOTE | 2025-01-11 17:52 | Billing Data ---
Date of Service January 11, 2025 Coding Level of Care Code 77653 IN/OBS DISCH 30 MIN/LESS
--- NOTE | 2025-01-12 05:31 | Electrocardiogram Report ---
Test Reason : Blood Pressure : */* mmHG Vent. Rate : 45 BPM Atrial Rate : * BPM P-R Int : * ms QRS Dur : 84 ms QT Int : 336 ms P-R-T Axes : * -49 0 degrees QTcB Int : 290 ms Junctional bradycardia Left axis deviation Nonspecific ST and T wave abnormality Abnormal ECG When compared with ECG of 08-Jan-2025 07:50, Junctional bradycardia has replaced Atrial flutter Confirmed by Zohaib Singh ([id number]) on 01/12/2025 5:31:06 AM Referred By: REFERRED SELF Confirmed By: Zohaib Singh
--- NOTE | 2025-01-12 05:32 | Electrocardiogram Report ---
Test Reason : Blood Pressure : */* mmHG Vent. Rate : 69 BPM Atrial Rate : 69 BPM P-R Int : 184 ms QRS Dur : 82 ms QT Int : 434 ms P-R-T Axes : 62 -41 6 degrees QTcB Int : 465 ms Normal sinus rhythm Left axis deviation Abnormal ECG When compared with ECG of 09-Jan-2025 01:18, Premature atrial complexes are no longer Present Confirmed by Zohaib Singh ([id number]) on 01/12/2025 5:32:04 AM Referred By: REFERRED SELF Confirmed By: Zohaib Singh
--- NOTE | 2025-01-12 05:32 | Electrocardiogram Report ---
Test Reason : Blood Pressure : */* mmHG Vent. Rate : 120 BPM Atrial Rate : * BPM P-R Int : * ms QRS Dur : 88 ms QT Int : 342 ms P-R-T Axes : * -44 20 degrees QTcB Int : 483 ms Atrial flutter Left axis deviation Nonspecific ST abnormality Prolonged QT Abnormal ECG When compared with ECG of 09-Jan-2025 11:51, Atrial flutter has replaced Sinus rhythm Vent. rate has increased by 51 bpm Confirmed by Zohaib Singh ([id number]) on 01/12/2025 5:32:42 AM Referred By: REFERRED SELF Confirmed By: Zohaib Singh
--- NOTE | 2025-01-12 05:32 | Electrocardiogram Report ---
Test Reason : Blood Pressure : */* mmHG Vent. Rate : 60 BPM Atrial Rate : 60 BPM P-R Int : 200 ms QRS Dur : 86 ms QT Int : 448 ms P-R-T Axes : 49 -53 12 degrees QTcB Int : 448 ms Sinus rhythm with Premature atrial complexes in a pattern of bigeminy Left axis deviation Abnormal ECG When compared with ECG of 09-Jan-2025 00:13, Sinus rhythm has replaced Junctional rhythm Confirmed by Zohaib Singh ([id number]) on 01/12/2025 5:31:48 AM Referred By: REFERRED SELF Confirmed By: Zohaib Singh
--- NOTE | 2025-01-12 05:33 | Electrocardiogram Report ---
Test Reason : Blood Pressure : */* mmHG Vent. Rate : 66 BPM Atrial Rate : 66 BPM P-R Int : 196 ms QRS Dur : 82 ms QT Int : 442 ms P-R-T Axes : 47 -40 10 degrees QTcB Int : 463 ms Normal sinus rhythm Left axis deviation Abnormal ECG When compared with ECG of 09-Jan-2025 12:29, Sinus rhythm has replaced Atrial flutter Vent. rate has decreased by 54 bpm Confirmed by Zohaib Singh ([id number]) on 01/12/2025 5:33:00 AM Referred By: REFERRED SELF Confirmed By: Zohaib Singh
--- NOTE | 2025-01-13 07:48 | Coding Query ---
To promote full compliance with coding requirements relating to patient care, provider participation is requested in all cases of magnetic tape composer operator uncertainty. Please assist us with the question(s) below: Coding Question(s): The diagnosis below was documented in the ER, then subsequently fell off all further documentation. Please indicate if it is still a possible diagnosis or ruled out. Physician's Response(s): ACUTE HYPOXIC RESPIRATORY FAILURE (regarding Acute Respiratory Failure specificity, documented in the ER, then documented as Acute Hypoxia in the rest of chart) ( x ) Diagnosed and POA ( ) Diagnosed and not POA ( ) Ruled out ( ) Other (please specify) MTDD
--- NOTE | 2025-01-13 07:50 | Coding Query ---
To promote full compliance with coding requirements relating to patient care, physician participation is requested in all cases of mica miner blasting uncertainty. Please assist us with the question(s) below: Coding Question(s): It was noted throughout the record that the patient has/is suspected to have osteoporosis. According to coding guidelines "a code for osteoporotic fracture, and not a traumatic fracture, should be used for any patient with known osteoporosis who suffers a fracture, even if the patient had a minor fall or trauma, if that fall or trauma would not usually break a normal, healthy bone." Please indicate below the type of fracture: Physician's Response(s): ( ) Osteoporotic fracture of proximal phalanx of digit of left hand ( x) Traumatic fracture of proximal phalanx of digit of left hand ( ) Other, please specify MTDD
--- NOTE | 2025-01-13 07:52 | Coding Query ---
CONGESTIVE HEART FAILURE To Promote full compliance with coding requirements relating to patient care, physician participation is requested in all cases of clinical nursing intern uncertainty. Please assist us with the following questions. A diagnosis of Congestive Heart Failure is documented in the patient's medical record under Acute Hypoxia with documentation of, "Suspect multifactorial in setting of rib contusion from fall/mild CHF". To accurately code this diagnosis and to compare patient severity, we ask that you specify the type of heart failure by placing an X within the parenthesis (x). SYSTOLIC HEART FAILURE ( ) Acute ( ) Chronic ( ) Acute on Chronic ( ) Rheumatic ( ) Unknown DIASTOLIC HEART FAILURE (x ) Acute ( ) Chronic ( ) Acute on Chronic ( ) Rheumatic ( ) Unknown COMBINED SYSTOLIC AND DIASTOLIC HEART FAILURE ( ) Acute ( ) Chronic ( ) Acute on Chronic ( ) Rheumatic ( ) Unknown Was the CHF Present On Admission? Please check the appropriate box: (x ) Present on Admission ( ) Not Present On Admission ( ) Clinically undetermined Thank you Remedios OLIVA
== END 2025-01-11 15:54 | disposition home health service (06) | DRG 308 ==
LOC: ED 08:54 → SUATTDRO 15:06 → EDINP 15:06 → 2S 17:13
DX: Z79.01 Long term (current) use of anticoagulants; I48.0 Paroxysmal atrial fibrillation; Z87.891 Personal history of nicotine dependence; Z77.22 Contact with and (suspected) exposure to environmental tobacco smoke (acute) (chronic); F32.A Depression, unspecified; S62.617A Displaced fracture of proximal phalanx of left little finger, initial encounter for closed fracture; G47.33 Obstructive sleep apnea (adult) (pediatric); Z88.5 Allergy status to narcotic agent; K21.9 Gastro-esophageal reflux disease without esophagitis; E78.5 Hyperlipidemia, unspecified; Z88.2 Allergy status to sulfonamides; M81.0 Age-related osteoporosis without current pathological fracture; J45.909 Unspecified asthma, uncomplicated; Z95.5 Presence of coronary angioplasty implant and graft; F41.9 Anxiety disorder, unspecified; Z79.02 Long term (current) use of antithrombotics/antiplatelets; W10.9XXA Fall (on) (from) unspecified stairs and steps, initial encounter; J96.01 Acute respiratory failure with hypoxia; E11.51 Type 2 diabetes mellitus with diabetic peripheral angiopathy without gangrene; Z79.51 Long term (current) use of inhaled steroids; I25.10 Atherosclerotic heart disease of native coronary artery without angina pectoris; I48.92 Unspecified atrial flutter; I11.0 Hypertensive heart disease with heart failure; I50.31 Acute diastolic (congestive) heart failure; Z83.3 Family history of diabetes mellitus; R82.71 Bacteriuria; Z66 Do not resuscitate; S20.20XA Contusion of thorax, unspecified, initial encounter; I31.39 Other pericardial effusion (noninflammatory); S01.81XA Laceration without foreign body of other part of head, initial encounter; Z88.1 Allergy status to other antibiotic agents; Z79.84 Long term (current) use of oral hypoglycemic drugs; D50.9 Iron deficiency anemia, unspecified; E83.42 Hypomagnesemia; Y99.8 Other external cause status; Z79.899 Other long term (current) drug therapy; Z82.5 Family history of asthma and other chronic lower respiratory diseases; Y92.009 Unspecified place in unspecified non-institutional (private) residence as the place of occurrence of the external cause

== ENCOUNTER 2025-01-20 13:37 | Inpatient (IN) ==
--- NOTE | 2025-01-20 14:12 | Emergency Department Note ---
Impression & Plan Recurrent falls, Hematoma of scalp, CR (acute kidney injury), Hypoxia ED Provider Note HISTORY OF PRESENT ILLNESS: Patient is a 79-year-old female presenting with recurrent falls. Patient reports her last fall was yesterday. Reports that she was standing at her dresser when she reached down to get something out of the bottom drawer and lost her balance and fell to the right, striking the right side of her head. Denies loss of consciousness. She states that a week ago she fell and suffered a black eye. Denies loss of consciousness without fall. Reports that she is now walking with a walker at home but states she still unsteady on her feet. Denies any chest pain, shortness of breath or lightheadedness prior to the fall. She reports she is always short of breath, but no worse than normal. She had medications changed by her sap director 2 days ago with starting amiodarone and decreasing her metoprolol. Reports she has been doing well since this change. She has a 30-day heart monitor on per her sap director. She is on Eliquis for history of A-fib. Tetanus is up-to-date. Patient does complain of a dull headache. Denies any numbness or tingling or weakness in her extremities. She does report her vision seems "fuzzy" but states that her glasses broke on her first fall and she has been using an old prescription. ROS: as above PHYSICAL EXAM: Constitutional: Patient appears in no acute distress. HENT: Head: Normocephalic. Old appearing ecchymosis to the right periorbital region. Scabbed over laceration to the left upper forehead. Patient has yellow and green appearing bruising to the right upper forehead. Eyes: EOMI, PERRL Mouth/Throat: Mucous membranes moist. Neck: Trachea midline. Neck supple. No midline cervical spine tenderness to palpation. Cardiovascular: RRR, No murmurs, rubs or gallops. Intact distal pulses. Pulmonary/Chest: No respiratory distress. Breath sounds clear and equal bilaterally. No wheezes or rales. No chest wall tenderness to palpation. P atient does appear to have old appearing ecchymosis to her left breast region. Abdominal: Abdomen soft, no tenderness, rebound or guarding. Musculoskeletal: No edema, tenderness or deformity noted. Skin: Warm and dry. No rash, erythema, pallor or cyanosis Psychiatric: Appropriate mood and affect for situation. Neurological: Alert and keenly responsive. CN II-XII grossly intact, moving all extremities equally and fully. MDM: - Vitals signs showed hypertension - History obtained via patient. History as above. - Chronic conditions affecting care: GERD; Graves disease; DM-2; anxiety/depression; paroxysmal Afib; HTN; HLD - Differential diagnoses include, but are not limited to: CVA; intracranial hemorrhage; ACS; dysrhythmia; electrolyte abnormality; dehydration; pneumonia; UTI - Order placed for continuous cardiac monitoring. At this time, monitor showed rate of 78 bpm with normal sinus rhythm, per my interpretation. - External medical records reviewed. Primary care visit note dated 01/14/2025 was reviewed. Patient was seen for a follow-up appointment for hospital admission. - EKG image interpreted by myself showed normal sinus rhythm. Rate 71 bpm. QT 396. No acute ischemic changes. However, lateral leads shows significant artifact. - Laboratory workup interpreted by myself showed normal WBC; elevated INR (1.4); normal electrolytes; CR (Cr 1.33); normal troponin; normal lipase - CXR image reviewed by myself was negative for pneumonia, per my interpretation. - CT head wo contrast negative for acute intracranial pathology. Noted to have bilateral frontal scalp hematomas. - CT cervical spine wo contrast for acute pathology. - Discussion was had with case hardener about patient's case and need for admission - Hospitalist consulted for admission - Patient admitted to [facility] for further evaluation and management. ASSESSMENT AND PLAN: Diagnosis: recurrent falls; scalp hematomas; CR; hypoxia Plan: admit Past Med/Surg History Problem List (Updated 01/20/25 @ 18:37 by Diamond Zepeda MD) Hypoxia (Acute) CR (acute kidney injury) (Acute) Hematoma of scalp (Acute) Recurrent falls (Acute) Sinus bradycardia Atrial flutter with rapid ventricular response (Acute) Asymptomatic bacteriuria Fracture of proximal phalanx of digit of left hand Paroxysmal atrial fibrillation with RVR Mild cognitive disorder Iron deficiency anemia Pericardial effusion Lung nodules PAD (peripheral artery disease) Hypertension S/P coronary artery stent placement CAD (coronary atherosclerotic disease) Memory loss Hypomagnesemia Paroxysmal atrial fibrillation Osteoporosis Vitamin D deficiency (Acute) Back pain, chronic (Acute) Asthma (Acute) Allergic rhinitis (Acute) Osteoarthritis of right knee Microalbuminuria Depression (Acute) Anxiety (Acute) Multinodular goiter Type 2 diabetes mellitus (Acute) NIDDM GERD (gastroesophageal reflux disease) (Acute) Graves disease (Acute) Euthyroid per 01/31/21 thyroid studies -- no medications/issues currently, under surveillance by PCP Hyperlipidemia (Acute) Moderate obstructive sleep apnea (Acute) CPAP Pulmonary nodules (Acute) Restless legs syndrome (Acute) Medical History Meningioma Pseudoaneurysm of left femoral artery Left groin mass Abdominal distension Diaphoresis Chest discomfort Dyspnea on exertion Abnormal thyroid blood test Cough Close exposure to 2019-nCoV Conjunctivitis Close exposure to 2019-nCoV Cough productive of purulent sputum History of COVID-19 Asthma Closed fracture of right distal fibula Thyroid nodule Osteoporosis Surgical History Hx of cardiac cath H/O laminectomy (~1991) S/P right knee arthroscopy History of esophagogastroduodenoscopy (EGD) History of colonoscopy History of cholecystectomy History of corneal transplant Family History Father Diabetes Heart disease Hemangioma Glaucoma Asthma Mother Stroke Other No family history of adverse response to anesthesia Social History Smoking Status: Never smoker Tobacco Type: Cigarettes Age Started Using Tobacco: 16; Age Quit Using Tobacco: 51; packs per day: 1; Second Hand Exposure: No; Do You Dip or Chew Tobacco: No; Hx Alcohol Use: No Hx Substance Use: No Preferred Language: Armenian Communication Ability: Effective Visual Impairment: No Limitations Hearing Ability: Normal Accounts Receivable Associate Required: No Beliefs That Will Affect Care: None marital status: Current Living Situation: Alone and Spouse current occupational status: retired Feels Safe at Home: Yes Dental Care, Regularly: Yes Seatbelt Use: always Assistive Devices: Cane and Walker Allergies Allergies Allergy/AdvReac Type Severity Reaction Status Date / Time codeine Allergy Intermediate Vomiting & Verified 01/20/25 17:30 hallucinations sulfamethoxazole Allergy Intermediate Rash Verified 01/20/25 17:30 [From Bactrim] trimethoprim [From Bactrim] Allergy Intermediate Rash Verified 01/20/25 17:30 Home Meds Home Medications Medication Instructions Recorded Confirmed loratadine 10 mg tablet (Allergy 10 mg PO QAM 06/29/20 01/20/25 Relief (loratadine)) clopidogrel 75 mg tablet 75 mg PO DAILY 06/09/23 01/20/25 isosorbide mononitrate 30 mg 30 mg PO QAM 01/07/25 01/20/25 tablet,extended release 24 hr pantoprazole 40 mg tablet,delayed 40 mg PO QAM 01/07/25 01/20/25 release (Protonix) vitamin B complex 1 tab PO QAM 01/07/25 01/20/25 ascorbic acid (vitamin C) 500 mg 500 mg PO DAILY 01/14/25 01/20/25 capsule amiodarone 200 mg tablet 0 mg PO DAILY 01/20/25 01/20/25 magnesium oxide 400 mg PO DAILY 01/20/25 01/20/25 Previous Rx's Medication Instructions Recorded nitroglycerin 0.4 mg sublingual 0.4 mg sublingual Q5M PRN chest 04/29/23 tablet pain #25 tabs albuterol sulfate 90 mcg/actuation 2 puff inhalation QID PRN 01/27/24 aerosol inhaler (Ventolin HFA) shortness of breath or wheezing #18 grams apixaban 5 mg tablet (Eliquis) 5 mg PO BID #180 tabs 03/25/24 fenofibrate 54 mg tablet 54 mg PO QAM #90 tabs 03/29/24 mirabegron 50 mg tablet,extended 50 mg PO QAM #90 tabs 05/28/24 release 24 hr (Myrbetriq) rosuvastatin 40 mg tablet (Crestor) 40 mg PO DAILY #90 tabs 07/13/24 bupropion HCl 300 mg 24 hr tablet, 300 mg PO QAM #90 tabs 07/19/24 extended release metformin 500 mg tablet 500 mg PO BID #200 tabs 08/04/24 fluticasone fur. 200 mcg-umeclid 1 inh inhalation DAILY #180 ea 08/31/24 62.5 mcg-vilant 25 mcg inhalat.powder (Trelegy Ellipta) losartan 50 mg tablet 50 mg PO DAILY #90 tabs 09/14/24 ibandronate 150 mg tablet 150 mg PO MONTHLY #3 tabs 09/24/24 montelukast 10 mg tablet 10 mg PO QPM #90 tabs 10/27/24 (Singulair) Auto Titrating CPAP #1 ea 11/15/24 lorazepam 0.5 mg tablet 0.5 mg PO TID PRN anxiety or 11/25/24 restless legs #90 tabs blood sugar diagnostic (Accu-Chek #100 ea 12/04/24 Sandy Plus test strips) blood sugar diagnostic (OneTouch #100 ea 12/28/24 Ultra Test strips) amlodipine 2.5 mg tablet 2.5 mg PO DAILY #90 tabs 01/10/25 ferrous sulfate 325 mg (65 mg 325 mg PO DAILY #90 tabs 01/14/25 iron) tablet pramipexole 0.25 mg tablet 0.25 mg PO QPM #60 tabs 01/14/25 venlafaxine 37.5 mg 37.5 mg PO DAILY #30 caps 01/14/25 capsule,extended release 24 hr (Effexor XR) Results & Data (ED) Vital Signs Vital Signs - 24 hr 01/20/25 13:38 01/20/25 13:38 01/20/25 13:51 Temperature 36.6 C Temperature Source Temporal Artery Scan Pulse Rate - Lying Pulse Rate - Sitting Pulse Rate - Standing Pulse Rate 71 Pulse Rate [Exercises] Pulse Rate [Recovery] Pulse Rate [Resting] Pulse Rate [Right Brachial] 70 Pulse Rhythm [Right Brachial] Regular Pulse Strength [Right Brachial] Normal Respiratory Rate 22 17 Respiratory Rate [Exercises] Respiratory Rate [Recovery] Respiratory Rate [Resting] Respiratory Effort / Characteristics Non-Labored Non-Labored Spontaneous Respiratory Depth Normal Normal Respiratory Pattern Regular Blood Pressure - Lying Blood Pressure - Sitting Blood Pressure- Standing Blood Pressure 166/117 H Blood Pressure [Left Calf] 131/74 Blood Pressure Mean 133 Blood Pressure Mean [Left Calf] 93 Blood Pressure Position [Left Calf] Lying Pulse Oximetry 94 94 93 Pulse Oximetry [Exercises] Pulse Oximetry [Recovery] Pulse Oximetry [Resting] Oxygen Delivery Method Room Air Room Air Room Air Sepsis Recent Fever Within 48 Hours No Sepsis New/Unexplained Change in Mental Status No Sepsis Action Taken by Nursing No Action Required 01/20/25 14:09 01/20/25 15:38 01/20/25 15:57 Temperature Temperature Source Pulse Rate - Lying Pulse Rate - Sitting Pulse Rate - Standing Pulse Rate 71 Pulse Rate [Exercises] Pulse Rate [Recovery] Pulse Rate [Resting] Pulse Rate [Right Brachial] 73 Pulse Rhythm [Right Brachial] Regular Pulse Strength [Right Brachial] Normal Respiratory Rate 16 Respiratory Rate [Exercises] Respiratory Rate [Recovery] Respiratory Rate [Resting] Respiratory Effort / Characteristics Non-Labored Respiratory Depth Normal Respiratory Pattern Regular Blood Pressure - Lying Blood Pressure - Sitting Blood Pressure- Standing Blood Pressure Blood Pressure [Left Calf] 129/85 Blood Pressure Mean Blood Pressure Mean [Left Calf] 99 Blood Pressure Position [Left Calf] Lying Pulse Oximetry 94 92 Pulse Oximetry [Exercises] Pulse Oximetry [Recovery] Pulse Oximetry [Resting] Oxygen Delivery Method Room Air Room Air Sepsis Recent Fever Within 48 Hours Sepsis New/Unexplained Change in Mental Status Sepsis Action Taken by Nursing 01/20/25 17:00 01/20/25 17:21 01/20/25 17:31 Temperature Temperature Source Pulse Rate - Lying 73 Pulse Rate - Sitting 75 Pulse Rate - Standing 82 Pulse Rate Pulse Rate [Exercises] 75 Pulse Rate [Recovery] 75 Pulse Rate [Resting] 76 Pulse Rate [Right Brachial] 72 Pulse Rhythm [Right Brachial] Regular Pulse Strength [Right Brachial] Normal Respiratory Rate 19 Respiratory Rate [Exercises] 24 Respiratory Rate [Recovery] 24 Respiratory Rate [Resting] 18 Respiratory Effort / Characteristics Non-Labored Respiratory Depth Normal Respiratory Pattern Regular Blood Pressure - Lying 132/72 Blood Pressure - Sitting 127/84 Blood Pressure- Standing 119/75 Blood Pressure Blood Pressure [Left Calf] 130/76 Blood Pressure Mean Blood Pressure Mean [Left Calf] 94 Blood Pressure Position [Left Calf] Lying Pulse Oximetry 95 Pulse Oximetry [Exercises] 89 L Pulse Oximetry [Recovery] 90 Pulse Oximetry [Resting] 93 Oxygen Delivery Method Room Air Room Air Sepsis Recent Fever Within 48 Hours Sepsis New/Unexplained Change in Mental Status Sepsis Action Taken by Nursing Laboratory Data 01/20/25 15:36 01/20/25 15:36 Lab Results 01/20/25 Range/Units 15:36 WBC 7.67 (4.8-10.8) K/ul RBC 4.19 L (4.20-5.40) M/uL Hgb 12.4 (12.0-16.0) g/dl Hct 38.3 (37.0-47.0) % MCV 91.4 (80.0-100.0) fL MCH 29.6 (25.0-34.0) pg MCHC 32.4 (32.0-36.0) g/dL RDW Std Deviation 46.6 H (36.4-46.3) fL RDW Coeff of Ambreen 14.0 (11.5-14.5) % Plt Count 431 H (130-400) K/uL MPV 9.0 L (9.4-12.4) fL Immature Gran % (Auto) 0.5 % Neut % (Auto) 73.4 % Lymph % (Auto) 16.3 % [place] % (Auto) 6.9 % Eos % (Auto) 2.2 % Baso % (Auto) 0.7 % Neut # (Auto) 5.63 (1.40-6.50) K/uL Lymph # (Auto) 1.25 (1.20-3.40) K/uL [place] # (Auto) 0.53 (0.11-0.59) K/uL Eos # (Auto) 0.17 (0.00-0.50) K/uL Baso # (Auto) 0.05 (0.00-0.20) K/uL Immature Gran # (Auto) 0.04 (0.01-0.20) K/uL PT 14.3 H (9.0-12.0) Seconds INR 1.4 H (0.9-1.1) Sodium 138 (136-145) mmol/L Potassium 3.8 (3.5-5.1) mmol/L Chloride 102 (98-107) mmol/L Carbon Dioxide 27 (21-32) mmol/L Anion Gap 9 (3-11) BUN 23 (6-23) mg/dl Creatinine 1.33 H (0.6-1.2) mg/dl Est Cr Clr Drug Dosing Not Reportable eGFR 40.95 BUN/Creatinine Ratio 17.3 (10-20) Glucose 96 (70-99(Fasting)) mg/dl Calcium 9.7 (8.6-10.3) mg/dl Total Bilirubin 0.5 (0.2-1.0) mg/dl AST 15 (13-39) U/L ALT 10 (7-52) U/L Alkaline Phosphatase 31 L (34-104) U/L Troponin I High Sens 8.4 (0-14) pg/ml Total Protein 7.7 (6.0-8.3) gm/dl Albumin 4.4 (3.4-5.0) gm/dl Globulin 3.3 (2.5-4.0) gm/dl Albumin/Globulin Ratio 1.3 (0.9-2) Lipase 19 (11-82) U/L Imaging Data Radiologist's Impression: Cervical Spine CT 01/20/25 14:09 EXAM: CT Cervical Spine Without Intravenous Contrast INDICATION: Fall TECHNIQUE: Axial computed tomography images of the cervical spine without intravenous contrast. Sagittal and coronal reformatted images were created and reviewed. This CT exam was performed using one or more of the following dose reduction techniques: automated exposure control, adjustment of the mA and/or kV according to patient size, and/or use of iterative reconstruction technique. COMPARISON: No relevant prior studies available. FINDINGS: Limitations: None. Vertebrae: There is diffuse mild facet arthrosis, spondylosis and moderate uncal spurring. No fracture. There is grade 1 degenerative anterolisthesis of C2 on C3. Stable lucent lesion left C3. Discs/spinal canal/neural foramina: Diffuse moderate to space narrowing relatively sparing C2-C3. There is osteophyte disc complex with moderate canal and left foraminal stenosis at C3-C4, C4-C5 and C5-C6. There is multilevel moderate to severe foraminal stenosis. Soft tissues: No significant abnormality noted. Vasculature: There is atherosclerotic calcification of the cervical internal carotid arteries. Lung apices: No significant abnormality noted. IMPRESSION: Diffuse moderate degenerative changes. No fracture. ACT 112: Negative or not required by law. Electronically signed by Mable Hodges 01-20-2025 4:55 PM Chest X-Ray 01/20/25 14:09 XR chest 1V portable CLINICAL HISTORY: left chest wall pain s/p fall COMPARISON STUDY: 01/07/2025 FINDINGS: Single view portable chest demonstrates a diminished pulmonary vascular congestion. There is no displaced rib fracture identified. There is persistent left basilar discoid atelectasis or scarring. The heart remains enlarged. The right lung is clear. IMPRESSION: No acute process. ACT 112: Negative or not required by law. Electronically signed by: Mimi Copeland M.D. 01/20/2025 2:[address] 01/20/25 14:09 EXAM: CT Head Without Intravenous Contrast INDICATION: Trauma TECHNIQUE: Axial computed tomography images of the head/brain without intravenous contrast. Sagittal and/or coronal reformats are provided. Sagittal and coronal reformatted images were created and reviewed. This CT exam was performed using one or more of the following dose reduction techniques: automated exposure control, adjustment of the mA and/or kV according to patient size, and/or use of iterative reconstruction technique. COMPARISON: 01/07/2025 FINDINGS: Limitations: None. Brain and extra-axial spaces: There is age appropriate cortical atrophy and chronic ischemic periventricular white matter hypodensity. No acute infarct, hemorrhage or mass noted. Stable calcified left perisylvian meningioma without edema. Bones/joints: No acute changes. Soft tissues: There are small bilateral frontal scalp hematomas right greater than left. Vasculature: No acute abnormality noted. Sinuses: No layering fluid in the visualized portions of the paranasal sinuses. Mastoid air cells: No mastoid effusion. Orbits: No significant abnormality noted. IMPRESSION: 1. Cerebral atrophy. No acute changes. 2. There are small bilateral frontal scalp hematomas right greater than left. ACT 112: Negative or not required by law. Electronically signed by Mable Hodges 01-20-2025 4:31 PM Discharge Plan Visit Data Chief Complaint: Head Injury, Minor Stated Complaint: FELL, HIT LT SIDE OF HEAD ED Provider: Diamond Zepeda Discharge Problem: Recurrent falls, Hematoma of scalp, CR (acute kidney injury), Hypoxia Forms Stand Alone Forms: [facility] [employer] Prescriptions Prescriptions: No Action albuterol sulfate [Ventolin HFA] 90 mcg/actuation HFA aerosol inhaler 2 puff INH QID PRN (Reason: shortness of breath or wheezing) Qty: 18 5RF Rx Instructions: Please substitute least expensive albuterol inhaler. Eliquis 5 mg tablet 5 mg PO BID Qty: 180 3RF fenofibrate 54 mg tablet 54 mg PO QAM Qty: 90 3RF Myrbetriq 50 mg tablet extended release 24 hr 50 mg PO QAM Qty: 90 3RF rosuvastatin [Crestor] 40 mg tablet 40 mg PO DAILY Qty: 90 3RF bupropion HCl 300 mg tablet extended release 24 hr 300 mg PO QAM Qty: 90 3RF metformin 500 mg tablet 500 mg PO BID Qty: 200 3RF Trelegy Ellipta 200-62.5-25 mcg blister with device 1 inh inhalation DAILY Qty: 180 3RF Rx Instructions: rinse mouth and gargle after usage losartan 50 mg tablet 50 mg PO DAILY Qty: 90 3RF ibandronate 150 mg tablet 150 mg PO MONTHLY Qty: 3 3RF Rx Instructions: as directed. montelukast [Singulair] 10 mg tablet 10 mg PO QPM Qty: 90 3RF lorazepam 0.5 mg tablet 0.5 mg PO TID PRN (Reason: anxiety or restless legs) Qty: 90 0RF Patient Comments: Per daughter she takes every night at bedtime (DME) Accu-Chek Sandy Plus test strp Strip See Rx Instructions .Route Qty: 100 3RF Rx Instructions: check once daily As directed DX:E11.9 (DME) OneTouch Ultra Test Strip See Rx Instructions .Route Qty: 100 4RF Rx Instructions: onetouch ultra in vitro strip; check sugars once a day; DX E11.9 amlodipine 2.5 mg tablet 2.5 mg PO DAILY Qty: 90 3RF nitroglycerin 0.4 mg tablet, sublingual 0.4 mg sublingual Q5M PRN (Reason: chest pain) Qty: 25 0RF Rx Instructions: do not exceed 3 doses per episode clopidogrel 75 mg tablet 75 mg PO DAILY (DME) Auto Titrating CPAP Misc See Rx Instructions .Route Qty: 1 0RF Rx Instructions: 4- 15 pressure ascorbic acid (vitamin C) 500 mg capsule 500 mg PO DAILY pramipexole 0.25 mg tablet 0.25 mg PO QPM Qty: 60 5RF Rx Instructions: administer 1 hour before leg restlessness starts venlafaxine [Effexor XR] 37.5 mg capsule,extended release 24hr 37.5 mg PO DAILY Qty: 30 2RF ferrous sulfate 325 mg (65 mg iron) tablet 325 mg PO DAILY Qty: 90 1RF loratadine [Allergy Relief (loratadine)] 10 mg tablet 10 mg PO QAM vitamin B complex Tablet 1 tab PO QAM isosorbide mononitrate 30 mg tablet extended release 24 hr 30 mg PO QAM pantoprazole [Protonix] 40 mg tablet,delayed release (DR/EC) 40 mg PO QAM magnesium oxide 400 mg magnesium Tablet 400 mg PO DAILY amiodarone 200 mg tablet 0 mg PO DAILY Rx Instructions: Per pharmacy there was an error in filling this medication. Patient picked up 200mg by mouth daily but it should've been dispensed as 200mg by mouth twice daily. Per spouse the patient should've been taking it as on the bottle. Referrals Referrals: Rico Arevalo MD [Primary Care Provider] -
--- NOTE | 2025-01-20 14:37 | XRay Report ---
XR chest 1V portable CLINICAL HISTORY: left chest wall pain s/p fall COMPARISON STUDY: 01/07/2025 FINDINGS: Single view portable chest demonstrates a diminished pulmonary vascular congestion. There i s no displaced rib fracture identified. There is persistent left basilar discoid atelectasis or scarr ing. The heart remains enlarged. The right lung is clear. IMPRESSION: No acute process. ACT 112: Negative or not required by law. Electronically signed by: Mimi Copeland M.D. 01/20/2025 2:36 PM
[2025-01-20 15:51] LABS: Basophils # (auto) 0.05 K/uL (0.00-0.20); Basophils % (auto) 0.7 %; Eosinophils # (auto) 0.17 K/uL (0.00-0.50); Eosinophils % (auto) 2.2 %; Hematocrit (blood only) 38.3 % (37.0-47.0); Hemoglobin 12.4 g/dl (12.0-16.0); Immature Granulocytes # (auto) 0.04 K/uL (0.01-0.20); Immature Granulocytes % (auto) 0.5 %; Lymphocytes # (auto) 1.25 K/uL (1.20-3.40); Lymphocytes % (auto) 16.3 %; Mean Corpuscular Hemoglobin 29.6 pg (25.0-34.0); Mean Corpuscular Hgb Conc 32.4 g/dL (32.0-36.0); Mean Corpuscular Volume 91.4 fL (80.0-100.0); Monocytes # (auto) 0.53 K/uL (0.11-0.59); Monocytes % (auto) 6.9 %; Neutrophils # (auto) 5.63 K/uL (1.40-6.50); Neutrophils % (auto) 73.4 %; Platelet Count 431 K/uL (130-400); RDW Standard Deviation 46.6 fL (36.4-46.3); Red Blood Count 4.19 M/uL (4.20-5.40); White Blood Count 7.67 K/ul (4.8-10.8)
[2025-01-20 16:08] LABS: Alanine Aminotransferase 10 U/L (7-52); Albumin Globulin Ratio 1.3 (0.9-2); Albumin Level 4.4 gm/dl (3.4-5.0); Alkaline Phosphatase 31 U/L (34-104); Anion Gap 9 (3-11); Aspartate Aminotransferase 15 U/L (13-39); BUN Creatinine Ratio 17.3 (10-20); Bilirubin,Total 0.5 mg/dl (0.2-1.0); Blood Urea Nitrogen 23 mg/dl (6-23); Calcium 9.7 mg/dl (8.6-10.3); Carbon Dioxide 27 mmol/L (21-32); Chloride 102 mmol/L (98-107); Globulin 3.3 gm/dl (2.5-4.0); Glucose 96 mg/dl (70-99(Fasting)); Lipase 19 U/L (11-82); Potassium 3.8 mmol/L (3.5-5.1); Sodium 138 mmol/L (136-145); Total Protein 7.7 gm/dl (6.0-8.3)
[2025-01-20 16:14] LABS: Troponin I High Sensitivity 8.4 pg/ml (0-14)
--- NOTE | 2025-01-20 16:16 | Electrocardiogram Report ---
Test Reason : Blood Pressure : */* mmHG Vent. Rate : 71 BPM Atrial Rate : 71 BPM P-R Int : 194 ms QRS Dur : 88 ms QT Int : 396 ms P-R-T Axes : 46 -30 72 degrees QTcB Int : 430 ms Normal sinus rhythm with sinus arrhythmia Left axis deviation Abnormal ECG When compared with ECG of 10-Jan-2025 19:03, ST now depressed in Lateral leads T wave inversion now evident in Anterolateral leads Confirmed by Greg Baig ([id number]) on 01/20/2025 4:16:17 PM Referred By: Rico Arevalo Confirmed By: Greg Baig
[2025-01-20 16:20] LABS: INR 1.4 (0.9-1.1); Prothrombin Time 14.3 Seconds (9.0-12.0)
--- NOTE | 2025-01-20 16:31 | CT Scan Report ---
EXAM: CT Head Without Intravenous Contrast INDICATION: Trauma TECHNIQUE: Axial computed tomography images of the head/brain without intravenous contrast. Sagittal and/or coronal reformats are provided. Sagittal and coronal reformatted images were created and reviewed. This CT exam was performed using one or more of the following dose reduction techniques: automated exposure control, adjustment of the mA and/or kV according to patient size, and/or use of iterative reconstruction technique. COMPARISON: 01/07/2025 FINDINGS: Limitations: None. Brain and extra-axial spaces: There is age appropriate cortical atrophy and chronic ischemic periventricular white matter hypodensity. No acute infarct, hemorrhage or mass noted. Stable calcified left perisylvian meningioma without edema. Bones/joints: No acute changes. Soft tissues: There are small bilateral frontal scalp hematomas right greater than left. Vasculature: No acute abnormality noted. Sinuses: No layering fluid in the visualized portions of the paranasal sinuses. Mastoid air cells: No mastoid effusion. Orbits: No significant abnormality noted. IMPRESSION: 1. Cerebral atrophy. No acute changes. 2. There are small bilateral frontal scalp hematomas right greater than left. ACT 112: Negative or not required by law. Electronically signed by Mable Hodges 01-20-2025 4:31 PM
--- NOTE | 2025-01-20 17:08 | CT Scan Report ---
EXAM: CT Cervical Spine Without Intravenous Contrast INDICATION: Fall TECHNIQUE: Axial computed tomography images of the cervical spine without intravenous contrast. Sagittal and coronal reformatted images were created and reviewed. This CT exam was performed using one or more of the following dose reduction techniques: automated exposure control, adjustment of the mA and/or kV according to patient size, and/or use of iterative reconstruction technique. COMPARISON: No relevant prior studies available. FINDINGS: Limitations: None. Vertebrae: There is diffuse mild facet arthrosis, spondylosis and moderate uncal spurring. No fracture. There is grade 1 degenerative anterolisthesis of C2 on C3. Stable lucent lesion left C3. Discs/spinal canal/neural foramina: Diffuse moderate to space narrowing relatively sparing C2-C3. There is osteophyte disc complex with moderate canal and left foraminal stenosis at C3-C4, C4-C5 and C5-C6. There is multilevel moderate to severe foraminal stenosis. Soft tissues: No significant abnormality noted. Vasculature: There is atherosclerotic calcification of the cervical internal carotid arteries. Lung apices: No significant abnormality noted. IMPRESSION: Diffuse moderate degenerative changes. No fracture. ACT 112: Negative or not required by law. Electronically signed by Mable Hodges 01-20-2025 4:55 PM
--- NOTE | 2025-01-20 18:09 | History & Physical Report ---
Date of Service January 20, 2025 Assessment & Plan (1) Hypoxia: (2) Recurrent falls: (3) Hematoma of scalp: (4) Constipation: Plan Patient is a 79-year-old female with a past medical history of CAD s/p PCI to RCA x 2 (most recent May 2023), paroxysmal A-fib on Eliquis, asthma, smoking history. She was recently hospitalized 01/07 to 01/11 for A-fib with RVR, hypoxia, and a fall. She did well with PT/OT and was discharged home. She presented to the ED 01/20 due to recurrent falls. She is being admitted for ambulatory dysfunction with PT/OT evals. #Hypoxia Oxygen noted to be 89% on room air with ambulation in ED History of asthma - Continue home inhalers CXR negative Incentive spirometry biofire and BNP ordered oxygen as needed; wean as tolerated possible that this is her new baseline - consider repeat 2 step oxygen test prior to discharge (appears previous did not qualify for home oxygen) #Ambulatory dysfunction/falls head CT showed small bilateral frontal scalp, right greater than left Cervical spine CT negative acute changes Recommend extensive discussion with patient and her family prior to discharge about discontinuing and long-term setting with recurrent falls - will continue for now (patient thinking about it) Uses walker at baseline PT/OT consulted fall precautions was discharged with PT recently - was to come 01/21 noted fracture proximal phalanx of digit of left hand during fall 01/07 - to have follow-up imaging 4 weeks after #constipation no BM since recent hospitalization low concern for obstruction - no pain, n/v Miralax + colace scheduled CR increased from 1.07 to 1.33 - does not meet criteria for CR, trend BMP, promote oral hydration Chronic stable diagnoses: A-fibcontinue Eliquis and, metoprolol, and amiodarone; 30-day Holter monitor in place HTNcontinue amlodipine and losartan CAD s/p stents x 2continue Plavix, Imdur, rosuvastatin Iron deficiency anemiacontinue iron supplement Osteoporosishold ibandronate as NF [id number] metformin, diabetic diet, defer BSG checks, most recent A1c 7.3% GERDcontinue PPI OSAcontinue CPAP at bedtime Depression/anxietycontinue Lexapro VTE ppx: Eliquis Diet: T2DM Dispo: med/telemetry with hypoxia possible dc home 2/21 if cleared by pt/ot Admission and Anticipated Discharge Date Admission Date: 01/20/25 History of Present Illness Chief Complaint: head injury Primary Care Provider: Rico Arevalo MD Patient is a 79-year-old female with a past medical history of CAD s/p PCI to RCA x 2 (most recent May 2023), paroxysmal A-fib on Eliquis, asthma, smoking history. She was recently hospitalized 01/07 to 01/11 for A-fib with RVR, hypoxia, and a fall. She did well with PT/OT and was discharged home. She presented to the ED 01/20 due to recurrent falls. She is being admitted for ambulatory dysfunction with PT/OT el. Patient seen at bedside. She stated that she fell 2 weeks ago prior to admission resulting in her left pinky fracture. At home yesterday she fell again hitting her head on the floor resulting in some ecchymosis of her eye. She stated she falls because she loses her balance, she denies tripping over anything and denies syncopal episode. She denies chest pain, heart palpitations, dizziness, lightheadedness, dyspnea prior to falls. During recent admission she was discharged with home health PT/OT which was supposed to come to her house tomorrow 01/21. Patient's oxygen was noted to drop to 88% on room air during ambulation in the ED requiring an admission. She stated that she has dyspnea on exertion however it is unchanged from her chronic baseline. She does endorse a new cough for approximately 1 week with clear mucus production, along with rhinorrhea. Patient also mentioned that she has not had a bowel movement since recent admission, roughly 10 days ago. She has been taking MiraLAX every day at home. She does still have flatulence. Patient denies headache, dizziness, sore throat, chest pain, abdominal pain, nausea, vomiting, diarrhea. She was a former smoker (1 pack/day x 15 years). She does not use oxygen at baseline. CPAP chest. She did take her home medications this morning. She wishes to be DNR/DNI. She has a 30-day Holter monitor in place. Her left pinky fracture is doing well, Denies numbness or significant pain. Patient was on amiodarone 400 Mg twice daily for 7 days. Transition to 200 twice daily on 01/20. Discussed potential for discontinuing Eliquis with recurrent falls. Patient is going to think about it. Allergies Allergy/AdvReac Type Severity Reaction Status Date / Time codeine Allergy Intermediate Vomiting & Verified 01/20/25 17:30 hallucinations sulfamethoxazole Allergy Intermediate Rash Verified 01/20/25 17:30 [From Bactrim] trimethoprim [From Bactrim] Allergy Intermediate Rash Verified 01/20/25 17:30 Home Medications Medication Instructions Recorded Confirmed Type loratadine 10 mg tablet (Allergy 10 mg PO QAM 06/29/20 01/20/25 History Relief (loratadine)) nitroglycerin 0.4 mg sublingual 0.4 mg sublingual Q5M PRN chest 04/29/23 01/20/25 Rx tablet pain #25 tabs clopidogrel 75 mg tablet 75 mg PO DAILY 06/09/23 01/20/25 History albuterol sulfate 90 mcg/actuation 2 puff inhalation QID PRN 01/27/24 01/20/25 Rx aerosol inhaler (Ventolin HFA) shortness of breath or wheezing #18 grams apixaban 5 mg tablet (Eliquis) 5 mg PO BID #180 tabs 03/25/24 01/20/25 Rx fenofibrate 54 mg tablet 54 mg PO QAM #90 tabs 03/29/24 01/20/25 Rx mirabegron 50 mg tablet,extended 50 mg PO QAM #90 tabs 05/28/24 01/20/25 Rx release 24 hr (Myrbetriq) rosuvastatin 40 mg tablet (Crestor) 40 mg PO DAILY #90 tabs 07/13/24 01/20/25 Rx bupropion HCl 300 mg 24 hr tablet, 300 mg PO QAM #90 tabs 07/19/24 01/20/25 Rx extended release metformin 500 mg tablet 500 mg PO BID #200 tabs 08/04/24 01/20/25 Rx fluticasone fur. 200 mcg-umeclid 1 inh inhalation DAILY #180 ea 08/31/24 01/20/25 Rx 62.5 mcg-vilant 25 mcg inhalat.powder (Trelegy Ellipta) losartan 50 mg tablet 50 mg PO DAILY #90 tabs 09/14/24 01/20/25 Rx ibandronate 150 mg tablet 150 mg PO MONTHLY #3 tabs 09/24/24 01/20/25 Rx montelukast 10 mg tablet 10 mg PO QPM #90 tabs 10/27/24 01/20/25 Rx (Singulair) Auto Titrating CPAP #1 ea 11/15/24 01/18/25 Rx lorazepam 0.5 mg tablet 0.5 mg PO TID PRN anxiety or 11/25/24 01/20/25 Rx restless legs #90 tabs blood sugar diagnostic (Accu-Chek #100 ea 12/04/24 01/18/25 Rx Sandy Plus test strips) blood sugar diagnostic (OneTouch #100 ea 12/28/24 01/18/25 Rx Ultra Test strips) isosorbide mononitrate 30 mg 30 mg PO QAM 01/07/25 01/20/25 History tablet,extended release 24 hr pantoprazole 40 mg tablet,delayed 40 mg PO QAM 01/07/25 01/20/25 History release (Protonix) vitamin B complex 1 tab PO QAM 01/07/25 01/20/25 History amlodipine 2.5 mg tablet 2.5 mg PO DAILY #90 tabs 01/10/25 01/20/25 Rx ascorbic acid (vitamin C) 500 mg 500 mg PO DAILY 01/14/25 01/20/25 History capsule ferrous sulfate 325 mg (65 mg 325 mg PO DAILY #90 tabs 01/14/25 01/20/25 Rx iron) tablet pramipexole 0.25 mg tablet 0.25 mg PO QPM #60 tabs 01/14/25 01/20/25 Rx venlafaxine 37.5 mg 37.5 mg PO DAILY #30 caps 01/14/25 01/20/25 Rx capsule,extended release 24 hr (Effexor XR) amiodarone 200 mg tablet 0 mg PO DAILY 01/20/25 01/20/25 History magnesium oxide 400 mg PO DAILY 01/20/25 01/20/25 History Past Med/Surg History Problem List (Updated 01/21/25 @ 13:31 by Greg Baig MD) Mitral regurgitation Constipation Hypoxia (Acute) CR (acute kidney injury) (Acute) Hematoma of scalp (Acute) Recurrent falls (Acute) Sinus bradycardia Atrial flutter with rapid ventricular response (Acute) Asymptomatic bacteriuria Fracture of proximal phalanx of digit of left hand Paroxysmal atrial fibrillation with RVR Mild cognitive disorder Iron deficiency anemia Pericardial effusion Lung nodules PAD (peripheral artery disease) Hypertension S/P coronary artery stent placement CAD (coronary atherosclerotic disease) Memory loss Hypomagnesemia Paroxysmal atrial fibrillation Osteoporosis Vitamin D deficiency (Acute) Back pain, chronic (Acute) Asthma (Acute) Allergic rhinitis (Acute) Osteoarthritis of right knee Microalbuminuria Depression (Acute) Anxiety (Acute) Multinodular goiter Type 2 diabetes mellitus (Acute) NIDDM GERD (gastroesophageal reflux disease) (Acute) Graves disease (Acute) Euthyroid per 01/31/21 thyroid studies -- no medications/issues currently, under surveillance by PCP Hyperlipidemia (Acute) Moderate obstructive sleep apnea (Acute) CPAP Pulmonary nodules (Acute) Restless legs syndrome (Acute) Medical History Meningioma Pseudoaneurysm of left femoral artery Left groin mass Abdominal distension Diaphoresis Chest discomfort Dyspnea on exertion Abnormal thyroid blood test Cough Close exposure to 2019-nCoV Conjunctivitis Close exposure to 2019-nCoV Cough productive of purulent sputum History of COVID-19 Asthma Closed fracture of right distal fibula Thyroid nodule Osteoporosis Surgical History Hx of cardiac cath H/O laminectomy (~1991) S/P right knee arthroscopy History of esophagogastroduodenoscopy (EGD) History of colonoscopy History of cholecystectomy History of corneal transplant Family History Father Diabetes Heart disease Hemangioma Glaucoma Asthma Mother Stroke Other No family history of adverse response to anesthesia Social History Smoking Status: Never smoker Tobacco Type: Cigarettes Age Started Using Tobacco: 16; Age Quit Using Tobacco: 51; packs per day: 1; Second Hand Exposure: No; Do You Dip or Chew Tobacco: No; Hx Alcohol Use: No Hx Substance Use: No Preferred Language: Hungarian Communication Ability: Effective Visual Impairment: No Limitations Hearing Ability: Normal Die Tripper Required: No Beliefs That Will Affect Care: None marital status: Current Living Situation: Spouse current occupational status: retired Feels Safe at Home: Yes Safety Concerns: Feels Safe At This Time Dental Care, Regularly: Yes Seatbelt Use: always Assistive Devices: Walker Review of Systems Review of Systems: see HPI Physical Exam Physical Exam: The patient is awake, alert and oriented 3, well developed and well nourished, normocephalic, in no acute distress. Non-toxic appearing. HEENT- EOMI, mucous membranes moist. Hearing grossly intact. Ecchymosis To l eft eye and right forehead. Heart-normal S1 and S2. No murmurs, rubs or gallops. Lungs-clear bilaterally, no respiratory distress, no accessory muscle use. Abdomen-normal bowel sounds and soft. No ascites noted. Non-tender. Extremities- no clubbing, cyanosis, or edema. Rheumatologic-normal range of motion. Psychiatric-normal affect. Results & Data Results & Data Vital Signs (Past 12 Hours) Vital Signs Temp Pulse Pulse Pulse Pulse Pulse Resp 01/20/25 17:31 75 75 76 01/20/25 15:57 71 01/20/25 15:38 73 16 01/20/25 14:09 01/20/25 13:51 36.6 C 71 17 01/20/25 13:38 01/20/25 13:38 70 22 Resp Resp Resp BP BP Pulse Ox Pulse Ox 01/20/25 17:31 24 24 18 89 L 01/20/25 15:57 01/20/25 15:38 129/85 92 01/20/25 14:09 94 01/20/25 13:51 166/117 H 93 01/20/25 13:38 94 01/20/25 13:38 131/74 94 Pulse Ox Pulse Ox O2 Del Method 01/20/25 17:31 90 93 Room Air 01/20/25 15:57 01/20/25 15:38 Room Air 01/20/25 14:09 Room Air 01/20/25 13:51 Room Air 01/20/25 13:38 Room Air 01/20/25 13:38 Room Air Laboratory Results Reviewed CBC, PT/INR, CMP, troponin, mag Diagnostic Findings Reviewed head CT, CXR, cervical spine CT Medications Administered EDnone ECG Additional Comments: NSR however significant artifact Code Status & VTE Plan Code Status DNR/DNI VTE Prophylaxis Plan VTE Prophylaxis will be ordered: Yes Supervising Physician Co-Signing Physician Notes I personally saw and examined the patient. I independently reviewed the labs, E KG, imaging, problem list, medication list, past medical history and family history. I verified all samuel points and agree with Nancy Friend PA-C with the following exceptions and/or additions: 71-year-old female presents to the ER presents to the ER due to recurrent falls. Noted to be hypoxic in the emergency room. Chest x-ray negative. No shortness of breath. O/E HS increased rate, irregular rhythm, no murmurs, Chest CTAB, Abdo SNT, no pedal edema A/P A. fib RVR - Possibly contributed towards hypoxia. Patient converted to A-fib with RVR in the emergency room, patient asymptomatic. EKG taken confirming this. Magnesium added and subsequently returned on 1.5, mag sulfate 2 g IV ordered. Since patient was recently on an IV amiodarone drip and subsequently weaning down p.o. amiodarone, currently on 200 mg p.o. BID discussed case with cardiology (Dr. Singh). Recommended no change to amiodarone at this time and holding morning Eliquis for potential switch to heparin and possible need for p acemaker for tachybradycardia syndrome. Consult cardiology placed. If she remains with a heart rate of 140 bpm overnight this is not a problem, do not treat with metoprolol as this has caused bradycardia when she converts to normal sinus rhythm which she is likely to do overnight. PG Care Time/CCT Total # of Minutes Spent Total Time Spent with Patient: Total time spent is greater than 50% in coordination of care (as documented) at patient's floor/unit and/or counseling patient: Coding Level of Care Code 73461 INT INP/OBS CARE 3/75MIN Diagnoses Hypoxia R09.02 Recurrent falls R29.6 Hematoma of scalp S00.03XA Constipation K59.00
[2025-01-20] MEDS: POLYETHYLENE (MIRALAX) 17 GM PACK PO STA (18:50)
[2025-01-20 19:10] LABS: Adenovirus PCR Not Detected (NotDetected); Bordetella parapertussis PCR Not Detected (NotDetected); Bordetella pertussis PCR Not Detected (NotDetected); Chlamydia pneumoniae PCR Not Detected (NotDetected); Coronavirus 229E PCR Not Detected (NotDetected); Coronavirus CoV-2 (COVID19)PCR Not Detected (NotDetected); Coronavirus HKU1 PCR Not Detected (NotDetected); Coronavirus NL63 PCR Not Detected (NotDetected); Coronavirus OC43PCR Not Detected (NotDetected); Human Metapneumovirus PCR Not Detected (NotDetected); Influenza A PCR Not Detected (NotDetected); Influenza B PCR Not Detected (NotDetected); Mycoplasma pneumoniae PCR Not Detected (NotDetected); Parainfluenza Virus 1 PCR Not Detected (NotDetected); Parainfluenza Virus 2 PCR Not Detected (NotDetected); Parainfluenza Virus 3 PCR Not Detected (NotDetected); Parainfluenza Virus 4 PCR Not Detected (NotDetected); Respiratory Syncytial VirusPCR Not Detected (NotDetected); Rhinovirus/Enterovirus PCR Not Detected (NotDetected)
[2025-01-20] MEDS ORDERED: NITROGLYCERIN SL 0.4 MG/TAB TAB SL PRN (21:18)
[2025-01-20] MEDS ORDERED: ALBUTEROL HFA 8 GM INHALER INH PRN (21:18)
[2025-01-20] MEDS ORDERED: ONDANSETRON INJ 2 MG/ML 2 ML VIAL IV PRN (21:18)
[2025-01-20] MEDS: DOCUSATE SODIUM 100 MG CAP PO SCH (22:00)
[2025-01-20] MEDS: MONTELUKAST SODIUM 10 MG TABLET PO SCH (22:00)
[2025-01-20] MEDS: APIXABAN 5 MG TABLET PO SCH (22:00)
[2025-01-20] MEDS: PRAMIPEXOLE DIHYDROCHLO 0.25 MG TAB PO SCH (22:00)
[2025-01-20 22:01] LABS: Magnesium 1.5 mg/dl (1.7-2.4)
--- NOTE | 2025-01-20 22:12 | Communication Note ---
Date of Service: January 20, 2025 Patient converted to A-fib with RVR in the emergency room, patient asymptomatic. EKG taken confirming this. Magnesium added and subsequently returned on 1.5, mag sulfate 2 g IV ordered. Since patient was recently on an IV amiodarone drip and subsequently weaning down p.o. amiodarone, currently on 200 mg p.o. BID discussed case with cardiology (Dr. Singh). Recommended no change to amiodarone at this time and holding morning Eliquis for potential switch to heparin and possible need for pacemaker for tachybradycardia syndrome. Consult cardiology placed. If she remains with a heart rate of 140 bpm overnight this is not a problem, do not treat with metoprolol as this has caused bradycardia when she converts to normal sinus rhythm which she is likely to do overnight.
[2025-01-20] MEDS: POTASSIUM CHLORIDE CRTAB 20 MEQ TABCR PO STA (23:02)
[2025-01-20] MEDS: AMIODARONE 200 MG TAB PO SCH (23:02)
[2025-01-20] MEDS: MAGNESIUM SULFATE / D5W 1 GM/100 ML BAG IV SCH (23:10)
[2025-01-21 07:22] LABS: Basophils # (auto) 0.05 K/uL (0.00-0.20); Basophils % (auto) 0.6 %; Eosinophils # (auto) 0.18 K/uL (0.00-0.50); Eosinophils % (auto) 2.3 %; Hematocrit (blood only) 38.8 % (37.0-47.0); Hemoglobin 12.6 g/dl (12.0-16.0); Immature Granulocytes # (auto) 0.03 K/uL (0.01-0.20); Immature Granulocytes % (auto) 0.4 %; Lymphocytes # (auto) 1.11 K/uL (1.20-3.40); Lymphocytes % (auto) 14.3 %; Mean Corpuscular Hemoglobin 30.3 pg (25.0-34.0); Mean Corpuscular Hgb Conc 32.5 g/dL (32.0-36.0); Mean Corpuscular Volume 93.3 fL (80.0-100.0); Mean Platelet Volume 9.2 fL (9.4-12.4); Monocytes # (auto) 0.57 K/uL (0.11-0.59); Monocytes % (auto) 7.4 %; Neutrophils # (auto) 5.81 K/uL (1.40-6.50); Platelet Count 416 K/uL (130-400); RDW Coefficient of Variation 14.1 % (11.5-14.5); RDW Standard Deviation 47.8 fL (36.4-46.3); Red Blood Count 4.16 M/uL (4.20-5.40); White Blood Count 7.75 K/ul (4.8-10.8)
[2025-01-21 07:39] LABS: BUN Creatinine Ratio 15.4 (10-20); Calcium 9.4 mg/dl (8.6-10.3); Creatinine Clr Calc Pharmacy 37.8 ml/min; Magnesium 1.9 mg/dl (1.7-2.4); Potassium 4.3 mmol/L (3.5-5.1)
[2025-01-21 07:49] LABS: INR 1.1 (0.9-1.1); Partial Thromboplastin Time 27 Seconds (21-31); Prothrombin Time 12.2 Seconds (9.0-12.0)
[2025-01-21] MEDS: LOSARTAN POTASSIUM 50 MG TAB PO SCH (08:10)
[2025-01-21] MEDS: MAGNESIUM OXIDE 400 MG TAB PO SCH (08:11)
[2025-01-21] MEDS: FERROUS SULFATE 325 MG TAB PO SCH (08:11)
[2025-01-21] MEDS: VENLAFAXINE HCL XR 37.5 MG CAPXR PO SCH (08:11)
[2025-01-21] MEDS: CLOPIDOGREL BISULFATE 75 MG TAB PO SCH (08:11)
[2025-01-21] MEDS: VIBEGRON 75 MG TAB PO SCH (08:11)
[2025-01-21] MEDS: LORATADINE 10 MG TAB PO SCH (08:11)
[2025-01-21] MEDS: ISOSORBIDE MONO EXTENDED REL 30 MG TABCR PO SCH (08:11)
[2025-01-21] MEDS: ROSUVASTATIN CALCIUM 20 MG TAB PO SCH (08:11)
[2025-01-21] MEDS: amLODIPine BESYLATE 5 MG TAB PO SCH (08:12)
[2025-01-21] MEDS: PANTOprazole 40 MG TAB PO SCH (08:12)
[2025-01-21] MEDS: buPROPion XL 300 MG TABCR PO SCH (08:12)
[2025-01-21] MEDS: FLUTICASONE FUROATE 200MCG 14 PUFFS/INHALER INH SCH (08:12)
[2025-01-21] MEDS: ASCORBIC ACID 500 MG TAB PO SCH (08:12)
[2025-01-21] MEDS: metFORMIN HCL 500 MG TAB PO SCH (08:12)
[2025-01-21] MEDS: UMECLIDINIUM/VILANTEROL 62.5/25MCG 7 PUFFS/INHALER INH SCH (08:13)
[2025-01-21] MEDS: POLYETHYLENE (MIRALAX) 17 GM PACK PO SCH (08:18)
[2025-01-21 08:34] LABS: ANTI-Xa, UFH(UnfractionatedHep > 1.50 IU/ml (0.3-0.7)
[2025-01-21] MEDS ORDERED: AMIODARONE 200 MG TAB PO SCH (09:00)
[2025-01-21] MEDS ORDERED: NON-FORMULARY MEDICATION (Fluticasone-Umeclidin-Vilanter [Trelegy Ellipta] 200-62.5-25 mcg INH SCH (09:00)
--- NOTE | 2025-01-21 11:42 | Hospitalist Progress Note ---
Date of Service January 21, 2025 Assessment & Plan (1) Hypoxia: Plan: -2nd to afib with RVR, possible tachy-mary syndrome -cardiology consulted -amiodarone PO for now -eliquis on hold and heparin drip, for possible pacemaker placement on Friday (2) Recurrent falls: Plan: -PT/OT consulted (3) Hematoma of scalp: Plan: -stable (4) Constipation: Plan: Miralax + colace scheduled Plan Patient is a 79-year-old female with a past medical history of CAD s/p PCI to RCA x 2 (most recent May 2023), paroxysmal A-fib on Eliquis, asthma, smoking history. She was recently hospitalized 01/07 to 01/11 for A-fib with RVR, hypoxia, and a fall. She did well with PT/OT and was discharged home. She presented to the ED 01/20 due to recurrent falls. She is being admitted for ambulatory dysfunction with PT/OT evals. Chronic stable diagnoses: A-fibcontinue Eliquis and, metoprolol, and amiodarone; 30-day Holter monitor in place HTNcontinue amlodipine and losartan CAD s/p stents x 2continue Plavix, Imdur, rosuvastatin Iron deficiency anemiacontinue iron supplement Osteoporosishold ibandronate as NF [id number] metformin, diabetic diet, defer BSG checks, most recent A1c 7.3% GERDcontinue PPI OSAcontinue CPAP at bedtime Depression/anxietycontinue Lexapro Dispo: med/telemetry with hypoxia Admission and Anticipated Discharge Date Admission Date: January 20, 2025 Subjective Pt resting in bed, no chest pain or SOB. Review of Systems Review of Systems: CONST: Negative for fever, body aches and chills. HENT: Negative for neck pain/stiffness, headache, congestion, sore throat, swelling. EYES: Negative for discharge/pain or vision changes. RESP: Negative for cough/hemoptysis and shortness of breath. CV: Negative chest pain, difficulty breathing, palpitations. ABD: Negative pain, nausea, vomiting. : Negative increase frequency, dysuria, blood in urine or stool. MUSC: Negative for muscle aches, edema. SKIN: Negative rash, lesions/sores. NEURO: Negative headache, dizziness, weakness. Physical Exam Physical Exam: GENERAL APPEARANCE NAD, activity normal for age, well developed/ well nourished, no cyanosis, pallor, or diaphoresis. EYES lids/conjunctiva normal. EARS/NOSE/THROAT Mucous membranes moist, nares normal, lips/teeth normal uvula midline without oral pharyngeal erythema, exudate or swelling TMs normal bilaterally. No lymphangitis/lymphedema. HEAD/NECK normocephalic atraumatic, no facial trauma, neck is supple. RESPIRATORY respiratory effort normal, speaks in full sentences, no tripod position, no accessory muscle use. Lungs clear to auscultation without rhonchi, wheezes, rales CARDIAC Regular rate and rhythm, no edema. ABDOMINAL Soft, ND/NT. No evidence of fluid wave. No pulsatile masses on exam, rebound tenderness, Norwood sign or pain over Mcburney's point. MUSCLES/EXTREMITIES No abnormal range of motion, no swelling. SKIN Warm, pink and dry. No rashes, dermatoses, petechiae or lesions. NEUROLOGICAL Speech is clear and appropriate. Normal level of consciousness. Gait and coordination are normal. 5/5 strength in all extremities. PSYCH Normal mood and affect. Judgement/competence is appropriate Results & Data Results & Data Vital Signs (Past 12 Hours) Vital Signs Temp Pulse Pulse Pulse Resp BP Pulse Ox 01/21/25 07:35 36.7 C 88 16 124/68 95 01/21/25 07:00 128 H 01/21/25 04:23 102 H 31 H 93 01/21/25 02:27 110 H 01/21/25 02:17 36.7 C 110 H 20 136/84 92 01/21/25 02:09 O2 Del Method O2 Flow Rate 01/21/25 07:35 Nasal Cannula 2 01/21/25 07:00 01/21/25 04:23 2 01/21/25 02:27 01/21/25 02:17 Nasal Cannula 2 01/21/25 02:09 Nasal Cannula 2 PG Care Time/CCT Total # of Minutes Spent Total Time Spent with Patient: Total time spent is greater than 50% in coordination of care (as documented) at patient's floor/unit and/or counseling patient: Coding Level of Care Code 23113 SUB INP/OBS CARE 2/35MIN Diagnoses Hypoxia R09.02 Recurrent falls R29.6 Hematoma of scalp S00.03XA Constipation K59.00
[2025-01-21 12:00] LABS: ANTI-Xa, UFH(UnfractionatedHep > 1.50 IU/ml (0.3-0.7)
--- NOTE | 2025-01-21 12:40 | Electrocardiogram Report ---
Test Reason : Blood Pressure : */* mmHG Vent. Rate : 120 BPM Atrial Rate : * BPM P-R Int : * ms QRS Dur : 94 ms QT Int : 338 ms P-R-T Axes : * -43 123 degrees QTcB Int : 477 ms Atrial fibrillation with rapid ventricular response Left axis deviation Pulmonary disease pattern Marked ST abnormality, possible lateral subendocardial injury Abnormal ECG When compared with ECG of 20-Jan-2025 15:11, Significant changes have occurred Confirmed by Greg Baig ([id number]) on 01/21/2025 12:40:13 PM Referred By: Rico Arevalo Confirmed By: rGeg Baig
--- NOTE | 2025-01-21 13:16 | Cardiology Consultation ---
Date of Consultation January 21, 2025 Assessment & Plan (1) Paroxysmal atrial fibrillation with RVR: (2) Pericardial effusion: (3) CAD (coronary atherosclerotic disease): (4) Mitral regurgitation: Plan 1. Atrial fibrillation: There are reports of atrial flutter, and I can see some concern for atrial flutter based on her current EKG, but most likely arrhythmia still atrial fibrillation. She has not had much success with the current strategy including amiodarone and metoprolol. She may have some symptoms associated with the arrhythmia, I think most of her symptoms are likely related to the poorly controlled ventricular rates. I think the long-term likelihood of maintaining sinus rhythm is quite small. I do not think she likely benefits from catheter-based therapy based on the size of her left atrium. I think we should transition to a rate control strategy. There has been some concerns about low heart rates at times when she is in sinus rhythm. 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 I recommended a pacemaker which will allow us to intensify her rate control. She should continue apixaban. 2. Coronary artery disease: Status post percutaneous intervention to the LAD. Maintained on Plavix for antiplatelet therapy. Eliquis as well. Noted to have peripheral vascular disease. Will continue aggressive secondary prevention with high-dose rosuvastatin 3. Mitral regurgitation: Mild on last echocardiogram 4. Pericardial effusion: Chronic. Small. No hemodynamic compromise. History of Present Illness Reason for Consultation: Atrial fibrillation Requesting Physician: Melva Attending Physician: Dayron Cortez MD History of Present Illness The patient is a 79-year-old woman with a long history of paroxysmal atrial fibrillation who presented to the hospital after suffering a fall at home. The patient states that she was bending over to get something out of a coding assistant her dresser when she fell forward and struck her head on the floor. She has had some difficulty with mobility recently. She generally ambulates with a walker at home. In the emergency room she was evaluated for any fractures and was discovered to have a contusion, but no fractures or intracranial hemorrhage. While in the emergency room undergoing on evaluation she developed atrial fibrillation with rapid ventricular response. She has been to the hospital primarily to address atrial fibrillation and mobility issues. Patient states that she has some vague sense of when she is in atrial fibrillation. She is not generally aware of any high heart rates. She does have a vague sense of palpitations on occasion. She is limited by mobility issues and dyspnea at times. She generally ambulates with a walker at home. She states that she is short of breath when doing routine activities around her house. She did not describe orthopnea. She has not had symptoms of chest discomfort. She has not had dizziness or lightheadedness and has not suffered syncope. She has a general sense of disequilibrium and difficulty with ambulation as a result. Her daughter was on the phone for today's interview and had some questions about breathing difficulties. She reports that her mother at times appears short of breath and "oneal". Allergies Allergy/AdvReac Type Severity Reaction Status Date / Time codeine Allergy Intermediate Vomiting & Verified 01/20/25 17:30 hallucinations sulfamethoxazole Allergy Intermediate Rash Verified 01/20/25 17:30 [From Bactrim] trimethoprim [From Bactrim] Allergy Intermediate Rash Verified 01/20/25 17:30 Home Medications Medication Instructions Recorded Confirmed Type loratadine 10 mg tablet (Allergy 10 mg PO QAM 06/29/20 01/20/25 History Relief (loratadine)) nitroglycerin 0.4 mg sublingual 0.4 mg sublingual Q5M PRN chest 04/29/23 01/20/25 Rx tablet pain #25 tabs clopidogrel 75 mg tablet 75 mg PO DAILY 06/09/23 01/20/25 History albuterol sulfate 90 mcg/actuation 2 puff inhalation QID PRN 01/27/24 01/20/25 Rx aerosol inhaler (Ventolin HFA) shortness of breath or wheezing #18 grams apixaban 5 mg tablet (Eliquis) 5 mg PO BID #180 tabs 03/25/24 01/20/25 Rx fenofibrate 54 mg tablet 54 mg PO QAM #90 tabs 03/29/24 01/20/25 Rx mirabegron 50 mg tablet,extended 50 mg PO QAM #90 tabs 05/28/24 01/20/25 Rx release 24 hr (Myrbetriq) rosuvastatin 40 mg tablet (Crestor) 40 mg PO DAILY #90 tabs 07/13/24 01/20/25 Rx bupropion HCl 300 mg 24 hr tablet, 300 mg PO QAM #90 tabs 07/19/24 01/20/25 Rx extended release metformin 500 mg tablet 500 mg PO BID #200 tabs 08/04/24 01/20/25 Rx fluticasone fur. 200 mcg-umeclid 1 inh inhalation DAILY #180 ea 08/31/24 01/20/25 Rx 62.5 mcg-vilant 25 mcg inhalat.powder (Trelegy Ellipta) losartan 50 mg tablet 50 mg PO DAILY #90 tabs 09/14/24 01/20/25 Rx ibandronate 150 mg tablet 150 mg PO MONTHLY #3 tabs 09/24/24 01/20/25 Rx montelukast 10 mg tablet 10 mg PO QPM #90 tabs 10/27/24 01/20/25 Rx (Singulair) Auto Titrating CPAP #1 ea 11/15/24 01/18/25 Rx lorazepam 0.5 mg tablet 0.5 mg PO TID PRN anxiety or 11/25/24 01/20/25 Rx restless legs #90 tabs blood sugar diagnostic (Accu-Chek #100 ea 12/04/24 01/18/25 Rx Sandy Plus test strips) blood sugar diagnostic (OneTouch #100 ea 12/28/24 01/18/25 Rx Ultra Test strips) isosorbide mononitrate 30 mg 30 mg PO QAM 01/07/25 01/20/25 History tablet,extended release 24 hr pantoprazole 40 mg tablet,delayed 40 mg PO QAM 01/07/25 01/20/25 History release (Protonix) vitamin B complex 1 tab PO QAM 01/07/25 01/20/25 History amlodipine 2.5 mg tablet 2.5 mg PO DAILY #90 tabs 01/10/25 01/20/25 Rx ascorbic acid (vitamin C) 500 mg 500 mg PO DAILY 01/14/25 01/20/25 History capsule ferrous sulfate 325 mg (65 mg 325 mg PO DAILY #90 tabs 01/14/25 01/20/25 Rx iron) tablet pramipexole 0.25 mg tablet 0.25 mg PO QPM #60 tabs 01/14/25 01/20/25 Rx venlafaxine 37.5 mg 37.5 mg PO DAILY #30 caps 01/14/25 01/20/25 Rx capsule,extended release 24 hr (Effexor XR) amiodarone 200 mg tablet 0 mg PO DAILY 01/20/25 01/20/25 History magnesium oxide 400 mg PO DAILY 01/20/25 01/20/25 History Patient History Medical History Meningioma Pseudoaneurysm of left femoral artery Left groin mass Abdominal distension Diaphoresis Chest discomfort Dyspnea on exertion Abnormal thyroid blood test Cough Close exposure to 2019-nCoV Conjunctivitis Close exposure to 2019nCoV Cough productive of purulent sputum History of COVID-19 Asthma Closed fracture of right distal fibula Thyroid nodule Osteoporosis Surgical History Hx of cardiac cath H/O laminectomy (~1991) S/P right knee arthroscopy History of esophagogastroduodenoscopy (EGD) History of colonoscopy History of cholecystectomy History of corneal transplant Family History Father Diabetes Heart disease Hemangioma Glaucoma Asthma Mother Stroke Other No family history of adverse response to anesthesia Social History Smoking Status: Never smoker Tobacco Type: Cigarettes Age Started Using Tobacco: 16; Age Quit Using Tobacco: 51; packs per day: 1; Second Hand Exposure: No; Do You Dip or Chew Tobacco: No; Hx Alcohol Use: No Hx Substance Use: No Preferred Language: Kenyan Communication Ability: Effective Visual Impairment: No Limitations Hearing Ability: Normal Clinical Research Spec Required: No Beliefs That Will Affect Care: None marital status: Current Living Situation: Spouse current occupational status: retired Feels Safe at Home: Yes Safety Concerns: Feels Safe At This Time Dental Care, Regularly: Yes Seatbelt Use: always Assistive Devices: Walker Review of Systems Review of Systems: Per HPI Physical Exam Physical Exam: She is alert and oriented x3. Mood affect appear normal. She answered all questions appropriately. HEENT: Sclerae are anicteric. Pupils are equal and reactive to light and accommodation. Extraocular movements were intact. Neuro: Cranial nerves intact Lungs: Lungs are clear to auscultation bilaterally. There are no rales wheezes or rhonchi. She has normal respiratory effort without use of accessory muscles. There is normal pulmonary excursion. Cardiac: The rhythm was irregular. S1 and S2 were normal. There are no murmurs on examination. The PMI was not markedly displaced on palpation. Extremities: Patient has bilateral radial pulses that are equal in intensity. There is no evidence cyanosis or clubbing. There was no evidence of significant peripheral edema bilaterally. Skin: There are no rashes noted on examination today. Results & Data Vital Signs (Past 12 Hours) Vital Signs Temp Pulse Pulse Pulse Resp BP Pulse Ox 01/21/25 11:43 37.2 C 98 H 17 114/60 95 01/21/25 07:35 36.7 C 88 16 124/68 95 01/21/25 07:00 128 H 01/21/25 04:23 102 H 31 H 93 01/21/25 02:27 110 H 01/21/25 02:17 36.7 C 110 H 20 136/84 92 01/21/25 02:09 O2 Del Method O2 Flow Rate 01/21/25 11:43 Nasal Cannula 2 01/21/25 07:35 Nasal Cannula 2 01/21/25 07:00 01/21/25 04:23 2 01/21/25 02:27 01/21/25 02:17 Nasal Cannula 2 01/21/25 02:09 Nasal Cannula 2 Laboratory Results Abnormal Lab Results 01/20/25 01/20/25 01/20/25 15:36 18:04 Unknown WBC 7.67 RBC 4.19 L Hgb 12.4 Hct 38.3 MCV 91.4 MCH 29.6 MCHC 32.4 RDW Std Deviation 46.6 H RDW Coeff of Ambreen 14.0 Plt Count 431 H MPV 9.0 L Immature Gran % (Auto) 0.5 Neut % (Auto) 73.4 Lymph % (Auto) 16.3 [place] % (Auto) 6.9 Eos % (Auto) 2.2 Baso % (Auto) 0.7 Neut # (Auto) 5.63 Lymph # (Auto) 1.25 [place] # (Auto) 0.53 Eos # (Auto) 0.17 Baso # (Auto) 0.05 Immature Gran # (Auto) 0.04 PT 14.3 H INR 1.4 H APTT PTT Ratio Heparin Anti-Xa, Unfract Sodium 138 Potassium 3.8 Chloride 102 Carbon Dioxide 27 Anion Gap 9 BUN 23 Creatinine 1.33 H Est Cr Clr Drug Dosing Not Reportable eGFR 40.95 BUN/Creatinine Ratio 17.3 Glucose 96 POC Glucose Calcium 9.7 Magnesium 1.5 L Total Bilirubin 0.5 AST 15 ALT 10 Alkaline Phosphatase 31 L Troponin I High Sens 8.4 B-Natriuretic Peptide 143 H Total Protein 7.7 Albumin 4.4 Globulin 3.3 Albumin/Globulin Ratio 1.3 Lipase 19 Adenovirus (PCR) Not Detected B. pertussis DNA (PCR) Not Detected B.parapertussis DNA PCR Not Detected C. pneumoniae DNA (PCR) Not Detected Coronavirus OC43 (PCR) Not Detected Coronavirus HKU1 (PCR) Not Detected Coronavirus 229E (PCR) Not Detected SARS-CoV-2 (PCR) Not Detected Coronavirus NL63 (PCR) Not Detected Human Metapneumovir PCR Not Detected Influenza Type A (PCR) Not Detected Influenza Type B (PCR) Not Detected M. pneumoniae (PCR) Not Detected Parainfluenza 1 (PCR) Not Detected Parainfluenza 2 (PCR) Not Detected Parainfluenza 3 (PCR) Not Detected Parainfluenza 4 (PCR) Not Detected RSV (PCR) Not Detected Entero/Rhino (PCR) Not Detected 01/21/25 01/21/25 01/21/25 06:58 08:08 11:04 WBC 7.75 RBC 4.16 L Hgb 12.6 Hct 38.8 MCV 93.3 MCH 30.3 MCHC 32.5 RDW Std Deviation 47.8 H RDW Coeff of Ambreen 14.1 Plt Count 416 H MPV 9.2 L Immature Gran % (Auto) 0.4 Neut % (Auto) 75.0 Lymph % (Auto) 14.3 [place] % (Auto) 7.4 Eos % (Auto) 2.3 Baso % (Auto) 0.6 Neut # (Auto) 5.81 Lymph # (Auto) 1.11 L [place] # (Auto) 0.57 Eos # (Auto) 0.18 Baso # (Auto) 0.05 Immature Gran # (Auto) 0.03 PT 12.2 H INR 1.1 APTT 27 PTT Ratio 1.0 Heparin Anti-Xa, Unfract > 1.50 H* > 1.50 H* Sodium 139 Potassium 4.3 Chloride 104 Carbon Dioxide 28 Anion Gap 7 BUN 18 Creatinine 1.17 Est Cr Clr Drug Dosing 37.8 eGFR 47.76 BUN/Creatinine Ratio 15.4 Glucose 139 H POC Glucose 129 H Calcium 9.4 Magnesium 1.9 Total Bilirubin AST ALT Alkaline Phosphatase Troponin I High Sens B-Natriuretic Peptide Total Protein Albumin Globulin Albumin/Globulin Ratio Lipase Adenovirus (PCR) B. pertussis DNA (PCR) B.parapertussis DNA PCR C. pneumoniae DNA (PCR) Coronavirus OC43 (PCR) Coronavirus HKU1 (PCR) Coronavirus 229E (PCR) SARS-CoV-2 (PCR) Coronavirus NL63 (PCR) Human Metapneumovir PCR Influenza Type A (PCR) Influenza Type B (PCR) M. pneumoniae (PCR) Parainfluenza 1 (PCR) Parainfluenza 2 (PCR) Parainfluenza 3 (PCR) Parainfluenza 4 (PCR) RSV (PCR) Entero/Rhino (PCR) 01/21/25 11:41 WBC RBC Hgb Hct MCV MCH MCHC RDW Std Deviation RDW Coeff of Ambreen Plt Count MPV Immature Gran % (Auto) Neut % (Auto) Lymph % (Auto) [place] % (Auto) Eos % (Auto) Baso % (Auto) Neut # (Auto) Lymph # (Auto) [place] # (Auto) Eos # (Auto) Baso # (Auto) Immature Gran # (Auto) PT INR APTT PTT Ratio Heparin Anti-Xa, Unfract Sodium Potassium Chloride Carbon Dioxide Anion Gap BUN Creatinine Est Cr Clr Drug Dosing eGFR BUN/Creatinine Ratio Glucose POC Glucose 131 H Calcium Magnesium Total Bilirubin AST ALT Alkaline Phosphatase Troponin I High Sens B-Natriuretic Peptide Total Protein Albumin Globulin Albumin/Globulin Ratio Lipase Adenovirus (PCR) B. pertussis DNA (PCR) B.parapertussis DNA PCR C. pneumoniae DNA (PCR) Coronavirus OC43 (PCR) Coronavirus HKU1 (PCR) Coronavirus 229E (PCR) SARS-CoV-2 (PCR) Coronavirus NL63 (PCR) Human Metapneumovir PCR Influenza Type A (PCR) Influenza Type B (PCR) M. pneumoniae (PCR) Parainfluenza 1 (PCR) Parainfluenza 2 (PCR) Parainfluenza 3 (PCR) Parainfluenza 4 (PCR) RSV (PCR) Entero/Rhino (PCR) Diagnostic Findings 1. Stress echo 10/15/2022: Nondiagnostic due to failure to achieve target heart rate. Normal LV size, wall thickness, and systolic function. EF 58%. No significant valvular abnormality. 2. Pharmacologic nuclear stress 11/19/2022: Negative for ischemia. Very mild and small fixed defect likely artifact given normal wall motion. LVEF 79%. 3. Cardiac cath 05/15/2023 [facility] (Dr. Baig): Left main luminal irregularities. LAD 30%. RCA proximal 70%. Catheters were unable to be passed through the right subclavian artery. Left heart catheterization performed via the left radial artery. LVEDP 4. PA 29/07/17. PCWP 6. RV 29/0. Mean RA 3. 4. Cardiac cath 05/16/2023 [facility] (Dr. Ugalde): Attempted FFR of RCA. Performed via the right femoral artery. Difficulty advancing J-tip wire. Fluoroscopy suggested iliac and distal aortic atherosclerosis. Eventually, wires were able to be sufficiently advanced however cannulation of the RCA was difficult. Once engaged, guidewire could not be sufficiently advanced beyond RCA lesion. 5. [place] [facility] [place] Performed via left femoral artery. Proximal RCA 90%. Rotational atherectomy performed and then PCI with 2 overlapping 3 x 16 mm and 3 x 32 mm Synergy BERNARDO. Mid to proximal segment postdilated with 3.25 mm NC. Complicated by left femoral artery pseudoaneurysm. 6. CT abdomen/pelvis 06[place]19[place] [facility] [place] Proximal left femoral artery pseudoaneurysm. Severe atherosclerosis with severe stenosis of the proximal right femoral artery and near occlusion of the mid right femoral artery and proximal right internal iliac artery. 7. Left femoral arterial duplex 06[place]19/20[place] [facility] [place] 4.7 cm x 3.9 cm pseudoaneurysm arising from left femoral artery. 8. Pseudoaneurysm thrombin [place] 06[place]20/20[place] [facility] [place] Successful. 9. Echo 07/29/2023 [facility]: Normal LV size. EF > 70%. Normal wall motion. Moderate LVH. Moderate left atrial dilation. Sclerotic aortic valve without significant stenosis. RVSP 38. Small pericardial effusion. No significant change from 10/15/2022. 10. Echo 01/08/2025 [facility]: Normal LV size, wall motion, systolic function. EF 60-65%. Moderate LVH. Severe left atrial dilation. Moderate MAC. Mild MR. RVSP 39. Small pericardial effusion without echocardiographic evidence of tamponade physiology. Head CT obtained at the time of admission did not reveal any acute fractures. Subcutaneous hematoma. Chest x-ray obtained this admission not reveal acute cardiopulmonary process ECG Additional Comments: Atrial fibrillation with rapid ventricular response. Nonspecific ST and T wave changes PG Care Time/CCT Total # of Minutes Spent Total Time Spent with Patient: Total time spent is greater than 50% in coordination of care (as documented) at patient's floor/unit and/or counseling patient: Coding Level of Care Code 61763 INT INP/OBS CARE 3/75MIN Diagnoses Paroxysmal atrial fibrillation with RVR I48.0 Pericardial effusion I31.39 CAD (coronary atherosclerotic disease) I25.10 Mitral regurgitation I34.0
[2025-01-21] MEDS: dilTIAZem HCL 30 MG TAB PO SCH (14:29)
[2025-01-21] MEDS: Heparin IV Adult Wt-Based Standard *NO* INITIAL Bolus Protocol IV ONE (14:54)
[2025-01-21] MEDS: HEPARIN 25000 UNIT/500 ML D5W 25,000 UNITS/500 ML BAG IV SCH (14:54)
[2025-01-21] MEDS: APIXABAN 5 MG TABLET PO SCH (20:49)
[2025-01-22 07:53] LABS: ANTI-Xa, UFH(UnfractionatedHep > 1.50 IU/ml (0.3-0.7)
--- NOTE | 2025-01-22 10:45 | Hospitalist Progress Note ---
Date of Service January 22, 2025 Assessment & Plan (1) Hypoxia: Plan: -2nd to afib with RVR, possible tachy-mary syndrome -cardiology consulted -cardizem PO -eliquis - pacemaker placement on Friday (2) Recurrent falls: Plan: -PT/OT consulted (3) Hematoma of scalp: Plan: -stable (4) Constipation: Plan: Miralax + colace scheduled Plan Patient is a 79-year-old female with a past medical history of CAD s/p PCI to RCA x 2 (most recent May 2023), paroxysmal A-fib on Eliquis, asthma, smoking history. She was recently hospitalized 01/07 to 01/11 for A-fib with RVR, hypoxia, and a fall. She did well with PT/OT and was discharged home. She presented to the ED 01/20 due to recurrent falls. She is being admitted for ambulatory dysfunction with PT/OT evals. Chronic stable diagnoses: HTNcontinue amlodipine and losartan CAD s/p stents x 2continue Plavix, Imdur, rosuvastatin Iron deficiency anemiacontinue iron supplement Osteoporosishold ibandronate as NF [id number] metformin, diabetic diet, defer BSG checks, most recent A1c 7.3% GERDcontinue PPI OSAcontinue CPAP at bedtime Depression/anxietycontinue Lexapro Admission and Anticipated Discharge Date Admission Date: January 20, 2025 Subjective Pt resting in bed, no chest pain or SOB. Review of Systems Review of Systems: CONST: Negative for fever, body aches and chills. HENT: Negative for neck pain/stiffness, headache, congestion, sore throat, swelling. EYES: Negative for discharge/pain or vision changes. RESP: Negative for cough/hemoptysis and shortness of breath. CV: Negative chest pain, difficulty breathing, palpitations. ABD: Negative pain, nausea, vomiting. : Negative increase frequency, dysuria, blood in urine or stool. MUSC: Negative for muscle aches, edema. SKIN: Negative rash, lesions/sores. NEURO: Negative headache, dizziness, weakness. Physical Exam Physical Exam: GENERAL APPEARANCE NAD, activity normal for age, well developed/ well nourished, no cyanosis, pallor, or diaphoresis. EYES lids/conjunctiva normal. EARS/NOSE/THROAT Mucous membranes moist, nares normal, lips/teeth normal uvula midline without oral pharyngeal erythema, exudate or swelling TMs normal bilaterally. No lymphangitis/lymphedema. HEAD/NECK normocephalic atraumatic, no facial trauma, neck is supple. RESPIRATORY respiratory effort normal, speaks in full sentences, no tripod position, no accessory muscle use. Lungs clear to auscultation without rhonchi, wheezes, rales CARDIAC Regular rate and rhythm, no edema. ABDOMINAL Soft, ND/NT. No evidence of fluid wave. No pulsatile masses on exam, rebound tenderness, Norwood sign or pain over Mcburney's point. MUSCLES/EXTREMITIES No abnormal range of motion, no swelling. SKIN Warm, pink and dry. No rashes, dermatoses, petechiae or lesions. NEUROLOGICAL Speech is clear and appropriate. Normal level of consciousness. Gait and coordination are normal. 5/5 strength in all extremities. PSYCH Normal mood and affect. Judgement/competence is appropriate Results & Data Results & Data Vital Signs (Past 12 Hours) Vital Signs Temp Pulse Pulse Resp BP BP Pulse Ox 01/22/25 10:17 36.3 C L 107 H 16 115/69 94 01/22/25 07:48 36.8 C 127 H 16 125/76 91 01/22/25 07:25 01/22/25 07:00 123 H 01/22/25 03:39 117 H 20 131/76 96 01/22/25 03:38 114 H 23 92 01/21/25 23:45 104 H 20 94 01/21/25 23:31 136 H O2 Del Method O2 Flow Rate 01/22/25 10:17 Nasal Cannula 2 01/22/25 07:48 Nasal Cannula 2 01/22/25 07:25 Nasal Cannula 2 01/22/25 07:00 01/22/25 03:39 CPAP 01/22/25 03:38 2 01/21/25 23:45 2 01/21/25 23:31 PG Care Time/CCT Total # of Minutes Spent Total Time Spent with Patient: Total time spent is greater than 50% in coordination of care (as documented) at patient's floor/unit and/or counseling patient: Coding Level of Care Code 46673 SUB INP/OBS CARE 2/35MIN Diagnoses Hypoxia R09.02 Recurrent falls R29.6 Hematoma of scalp S00.03XA Constipation K59.00
[2025-01-23 06:22] LABS: Basophils # (auto) 0.05 K/uL (0.00-0.20); Basophils % (auto) 0.4 %; Eosinophils # (auto) 0.23 K/uL (0.00-0.50); Eosinophils % (auto) 2.1 %; Hematocrit (blood only) 38.3 % (37.0-47.0); Hemoglobin 12.4 g/dl (12.0-16.0); Immature Granulocytes # (auto) 0.05 K/uL (0.01-0.20); Immature Granulocytes % (auto) 0.4 %; Lymphocytes # (auto) 1.11 K/uL (1.20-3.40); Lymphocytes % (auto) 9.9 %; Mean Corpuscular Hemoglobin 30.5 pg (25.0-34.0); Mean Corpuscular Hgb Conc 32.4 g/dL (32.0-36.0); Mean Corpuscular Volume 94.1 fL (80.0-100.0); Monocytes # (auto) 0.66 K/uL (0.11-0.59); Monocytes % (auto) 5.9 %; Neutrophils # (auto) 9.11 K/uL (1.40-6.50); Neutrophils % (auto) 81.3 %; Platelet Count 374 K/uL (130-400); RDW Coefficient of Variation 14.2 % (11.5-14.5); RDW Standard Deviation 48.7 fL (36.4-46.3); Red Blood Count 4.07 M/uL (4.20-5.40); White Blood Count 11.21 K/ul (4.8-10.8)
--- NOTE | 2025-01-23 11:14 | Hospitalist Progress Note ---
Date of Service January 23, 2025 Assessment & Plan (1) Hypoxia: Plan: -2nd to afib with RVR, possible tachy-mary syndrome -cardiology consulted -cardizem PO -eliquis -pacemaker placement on Friday01/24/25 (2) Recurrent falls: Plan: -PT/OT (3) Hematoma of scalp: Plan: -stable (4) Constipation: Plan: Miralax + colace scheduled (5) Type 2 diabetes mellitus: Plan: -con't metformin -RISS (6) Depression: Plan: -lexapro (7) CAD (coronary atherosclerotic disease): Plan: -continue Plavix, Imdur, rosuvastatin (8) Hypertension: Plan: continue amlodipine and losartan Plan Patient is a 79-year-old female with a past medical history of CAD s/p PCI to RCA x 2 (most recent May 2023), paroxysmal A-fib on Eliquis, asthma, smoking history. She was recently hospitalized 01/07 to 01/11 for A-fib with RVR, hypoxia, and a fall. She did well with PT/OT and was discharged home. She presented to the ED 01/20 due to recurrent falls. She is being admitted for ambulatory dysfunction with PT/OT evals. Admission and Anticipated Discharge Date Admission Date: January 20, 2025 Subjective Pt resting in bed, no chest pain or SOB. Review of Systems Review of Systems: CONST: Negative for fever, body aches and chills. HENT: Negative for neck pain/stiffness, headache, congestion, sore throat, swelling. EYES: Negative for discharge/pain or vision changes. RESP: Negative for cough/hemoptysis and shortness of breath. CV: Negative chest pain, difficulty breathing, palpitations. ABD: Negative pain, nausea, vomiting. : Negative increase frequency, dysuria, blood in urine or stool. MUSC: Negative for muscle aches, edema. SKIN: Negative rash, lesions/sores. NEURO: Negative headache, dizziness, weakness. Physical Exam Physical Exam: GENERAL APPEARANCE NAD, activity normal for age, well developed/ well nourished, no cyanosis, pallor, or diaphoresis. EYES lids/conjunctiva normal. EARS/NOSE/THROAT Mucous membranes moist, nares normal, lips/teeth normal uvula midline without oral pharyngeal erythema, exudate or swelling TMs normal bilaterally. No lymphangitis/lymphedema. HEAD/NECK normocephalic atraumatic, no facial trauma, neck is supple. RESPIRATORY respiratory effort normal, speaks in full sentences, no tripod position, no accessory muscle use. Lungs clear to auscultation without rhonchi, wheezes, rales CARDIAC Regular rate and rhythm, no edema. ABDOMINAL Soft, ND/NT. No evidence of fluid wave. No pulsatile masses on exam, rebound tenderness, [place] sign or pain over Mcburney's point. MUSCLES/EXTREMITIES No abnormal range of motion, no swelling. SKIN Warm, pink and dry. No rashes, dermatoses, petechiae or lesions. NEUROLOGICAL Speech is clear and appropriate. Normal level of consciousness. Gait and coordination are normal. 5/5 strength in all extremities. PSYCH Normal mood and affect. Judgement/competence is appropriate Results & Data Results & Data Vital Signs (Past 12 Hours) Vital Signs Temp Pulse Pulse Resp BP Pulse Ox O2 Del Method 01/23/25 07:59 36.9 C 119 H 16 126/69 93 Nasal Cannula 01/23/25 07:00 102 H 01/23/25 03:45 98 H 27 H 94 01/23/25 03:29 110 H 18 117/70 97 Room Air, CPAP 01/23/25 01:50 Nasal Cannula O2 Flow Rate 01/23/25 07:59 2 01/23/25 07:00 01/23/25 03:45 2 01/23/25 03:29 01/23/25 01:50 2 PG Care Time/CCT Total # of Minutes Spent Total Time Spent with Patient: Total time spent is greater than 50% in coordination of care (as documented) at patient's floor/unit and/or counseling patient: Coding Level of Care Code 99335 SUB INP/OBS CARE 2/35MIN Diagnoses Hypoxia R09.02 Recurrent falls R29.6 Hematoma of scalp S00.03XA Constipation K59.00 Type 2 diabetes mellitus E11.9 Depression F32.9 CAD (coronary atherosclerotic disease) I25.10 Hypertension I10
[2025-01-24] MEDS: ASPIRIN 81 MG ECTAB PO SCH (07:59)
--- NOTE | 2025-01-24 10:12 | Cardiology Progress Note ---
Date of Service January 24, 2025 Assessment & Plan (1) SSS (sick sinus syndrome): Plan She has classic tachybradycardia syndrome with difficulty controlling her rapid heart rate and bradycardia on rate control medications. A pacemaker would simplify management. This has been discussed with her and she is agreeable. I reviewed the indications, procedure, risks and alternatives of pacemaker implantation with her and she understands and agrees to proceed. We could not schedule it until tomorrow and our plan is midday tomorrow. Consent obtained. I also discussed sedation with her and she is agreeable. Consent obtained. Her son was present during the discussion. Her Eliquis has been on hold since yesterday morning, 48 hours is acceptable so I am not going to start anticoagulation. Admission and Anticipated Discharge Date Admission Date: January 20, 2025 Subjective Patient feels well in general, she has not been very active but has no specific cardiac complaints. No lightheadedness, dizziness, dyspnea on exertion. We were planning on putting a pacemaker in today and her Eliquis was held since yesterday morning, but we are not going to be able to do it today. Physical Exam Physical Exam: Constitutional: Alert, cooperative and in no distress. HEENT: Unremarkable Neck: No jugular venous distention, carotid pulses are irregular but otherwise normal and equal bilaterally without bruits. Pulmonary: Clear to auscultation bilaterally. Cardiac: Irregular rhythm with no murmur, gallop or rub. Abdomen: Soft, nontender with normal bowel sounds. Extremities: No edema. Distal pulses intact. Neurologic: No focal findings. Gait is steady. Skin: No rash, ecchymoses or petechiae. Results & Data Vital Signs (Past 12 Hours) Vital Signs Temp Pulse Pulse Resp BP Pulse Ox O2 Del Method 01/24/25 09:05 103 H 01/24/25 07:27 36.9 C 107 H 16 113/69 89 L Room Air 01/24/25 03:39 37.2 C 111 H 18 124/79 96 CPAP 01/24/25 03:25 110 H 32 H 96 01/23/25 23:36 36.9 C 110 H 20 122/63 95 Nasal Cannula 01/23/25 23:05 106 H 29 H 95 O2 Flow Rate 01/24/25 09:05 01/24/25 07:27 01/24/25 03:39 2 01/24/25 03:25 2 01/23/25 23:36 2 01/23/25 23:05 2 PG Care Time/CCT Total # of Minutes Spent Total Time Spent with Patient: Total time spent is greater than 50% in coordination of care (as documented) at patient's floor/unit and/or counseling patient: Coding Level of Care Code 87078 SUB INP/OBS CARE 2/35MIN Diagnoses SSS (sick sinus syndrome) I49.5
--- NOTE | 2025-01-24 12:04 | Hospitalist Progress Note ---
Date of Service January 24, 2025 Assessment & Plan (1) Hypoxia: (2) Recurrent falls: (3) Hematoma of scalp: (4) Constipation: (5) Type 2 diabetes mellitus: (6) Depression: (7) Hypertension: (8) CAD (coronary atherosclerotic disease): (9) Atrial fibrillation with rapid ventricular response: Plan #Atrial fibrillation with rapid ventricular rate Holding Eliquis prior to pacemaker insertion Continue diltiazem 30 mg p.o. Q6 hourly for rate control, plan to increase post pacemaker insertion #Hypoxia BNP low with no significant pulmonary edema on chest x-ray, remains hypoxic during her admission, will reassess following pacemaker insertion and improvement in heart rate control as we can increase her AV martha blocking agents following pacemaker insertion. Possibly this is her new baseline and may need 2 step prior to discharge. She is in no respiratory distress. #Ambulatory dysfunction/falls PT OT #constipation Date of last bowel movement recorded 01/23 Chronic stable diagnoses: HTN holding amlodipine, continue losartan (may need to hold this in addition) CAD s/p stents x 2continue Plavix, Imdur, rosuvastatin Iron deficiency anemiacontinue iron supplement Osteoporosishold ibandronate as NF [id number] metformin, diabetic diet, defer BSG checks, most recent A1c 7.3% GERDcontinue PPI OSAcontinue CPAP at bedtime Depression/anxietycontinue Lexapro VTE ppx: Holding prior to pacemaker insertion Diet: T2DM Dispo: Continue on med/tele Admission and Anticipated Discharge Date Admission Date: January 20, 2025 Subjective No chest pain, shortness of breath, dizziness, palpitations, presyncope. Plan is for pacemaker tomorrow and she appears to be ready for this. She remains hypoxic on 2 L/min O2 Physical Exam Respiratory: normal respiratory effort, lungs clear to auscultation Cardiovascular: Rate/Rhythm: regular rate and + irregularly irregular Results & Data Results & Data Vital Signs (Past 12 Hours) Vital Signs Temp Pulse Pulse Resp BP BP Pulse Ox 01/24/25 11:47 37.3 C 112 H 18 100/65 93 01/24/25 10:43 37.2 C 128 H 20 103/77 95 01/24/25 09:09 01/24/25 09:05 103 H 01/24/25 07:27 36.9 C 107 H 16 113/69 89 L 01/24/25 03:39 37.2 C 111 H 18 124/79 96 01/24/25 03:25 110 H 32 H 96 O2 Del Method O2 Flow Rate 01/24/25 11:47 Nasal Cannula 01/24/25 10:43 Nasal Cannula 01/24/25 09:09 Nasal Cannula 01/24/25 09:05 01/24/25 07:27 Room Air 01/24/25 03:39 CPAP 2 01/24/25 03:25 2 PG Care Time/CCT Total # of Minutes Spent Total Time Spent with Patient: Total time spent is greater than 50% in coordination of care (as documented) at patient's floor/unit and/or counseling patient: Coding Level of Care Code 51183 SUB INP/OBS CARE 2/35MIN Diagnoses Hypoxia R09.02 Recurrent falls R29.6 Hematoma of scalp S00.03XA Constipation K59.00 Type 2 diabetes mellitus E11.9 Depression F32.9 Hypertension I10 CAD (coronary atherosclerotic disease) I25.10 Atrial fibrillation with rapid ventricular response I48.91
[2025-01-24] MEDS: LORazepam 0.5 MG TAB PO PRN (21:27)
[2025-01-25] MEDS ORDERED: ceFAZolin 330 MG/ML 1 GM VIAL IV SCH (06:00)
--- NOTE | 2025-01-25 10:41 | Hospitalist Progress Note ---
Date of Service January 25, 2025 Assessment & Plan (1) Hypoxia: (2) Recurrent falls: (3) Hematoma of scalp: (4) Constipation: (5) Type 2 diabetes mellitus: (6) Depression: (7) Hypertension: (8) CAD (coronary atherosclerotic disease): (9) Atrial fibrillation with rapid ventricular response: Plan #Atrial fibrillation with rapid ventricular rate Holding Eliquis prior to pacemaker insertion Continue diltiazem 30 mg p.o. Q6 hourly for rate control, plan to increase post pacemaker insertion Converted to normal sinus rhythm 01/24 Pacemaker insertion planned for today #Hypoxia Appears resolved now back in normal sinus rhythm #Ambulatory dysfunction/falls PT/OT #constipation Date of last bowel movement recorded 01/24 Chronic stable diagnoses: HTN holding amlodipine, continue losartan (may need to hold this in addition) CAD s/p stents x 2continue Plavix, Imdur, rosuvastatin Iron deficiency anemiacontinue iron supplement Osteoporosishold ibandronate as NF [id number] metformin, diabetic diet, defer BSG checks, most recent A1c 7.3% GERDcontinue PPI OSAcontinue CPAP at bedtime Depression/anxietycontinue Lexapro VTE ppx: Holding prior to pacemaker insertion Diet: T2DM Dispo: Continue on med/tele Admission and Anticipated Discharge Date Admission Date: January 20, 2025 Anticipated date of discharge: 01/26/25 Subjective Patient converted to NSR around 16:42 last night No chest pain or shortness of breath. Awaiting pacemaker insertion later today. Physical Exam Respiratory: normal respiratory effort, lungs clear to auscultation Cardiovascular: Rate/Rhythm: regular rate and regular rhythm Results & Data Results & Data Vital Signs (Past 12 Hours) Vital Signs Temp Pulse Pulse Resp BP Pulse Ox O2 Del Method 01/25/25 07:55 71 118/67 01/25/25 07:30 Room Air 01/25/25 07:18 36.5 C 71 18 96/49 L 92 Room Air 01/25/25 07:00 68 01/25/25 03:09 36.6 C 105 H 18 139/77 92 Room Air 01/24/25 23:08 36.7 C 75 20 103/53 L 93 CPAP PG Care Time/CCT Total # of Minutes Spent Total Time Spent with Patient: Total time spent is greater than 50% in coordination of care (as documented) at patient's floor/unit and/or counseling patient: Coding Level of Care Code 01198 SUB INP/OBS CARE 235MIN Diagnoses Hypoxia R09.02 Recurrent falls R29.6 Hematoma of scalp S00.03XA Constipation K59.00 Type 2 diabetes mellitus E11.9 Depression F32.9 Hypertension I10 CAD (coronary atherosclerotic disease) I25.10 Atrial fibrillation with rapid ventricular response I48.91
[2025-01-25 10:45] LABS: Basophils # (auto) 0.04 K/uL (0.00-0.20); Basophils % (auto) 0.4 %; Eosinophils # (auto) 0.32 K/uL (0.00-0.50); Eosinophils % (auto) 3.4 %; Hematocrit (blood only) 33.8 % (37.0-47.0); Immature Granulocytes # (auto) 0.03 K/uL (0.01-0.20); Immature Granulocytes % (auto) 0.3 %; Lymphocytes # (auto) 0.86 K/uL (1.20-3.40); Lymphocytes % (auto) 9.2 %; Mean Corpuscular Hemoglobin 30.4 pg (25.0-34.0); Mean Corpuscular Hgb Conc 32.5 g/dL (32.0-36.0); Mean Corpuscular Volume 93.4 fL (80.0-100.0); Mean Platelet Volume 9.5 fL (9.4-12.4); Monocytes # (auto) 0.66 K/uL (0.11-0.59); Monocytes % (auto) 7.1 %; Neutrophils # (auto) 7.44 K/uL (1.40-6.50); Neutrophils % (auto) 79.6 %; Platelet Count 339 K/uL (130-400); RDW Coefficient of Variation 14.2 % (11.5-14.5); RDW Standard Deviation 48.6 fL (36.4-46.3); Red Blood Count 3.62 M/uL (4.20-5.40); White Blood Count 9.35 K/ul (4.8-10.8)
--- NOTE | 2025-01-25 13:07 | History & Physical Bridge Note ---
Date of Service January 25, 2025 History & Physical Bridge Note I have examined the patient, reviewed the History & Physical and in the interval since the performance of the History & Physical I have noted the following changes of clinical significance: no changes noted. I reviewed the indications, procedure, risks and alternatives with the patient, and answered all questions. Patient understands and agrees to the procedure. Consent obtained. I also reviewed the risks and use of sedation, patient understands and consent obtained.
--- NOTE | 2025-01-25 13:07 | Pre Anesthesia Assessment ---
Date of Service January 25, 2025 Pre Sedation Assessment Vital Signs Temp Pulse Pulse Resp BP BP Pulse Ox 01/25/25 11:55 70 18 93/67 L 93 01/25/25 11:30 36.8 C 70 18 110/69 93 01/25/25 07:55 71 118/67 01/25/25 07:30 01/25/25 07:18 36.5 C 71 18 96/49 L 92 01/25/25 07:00 68 01/25/25 03:09 36.6 C 105 H 18 139/77 92 01/24/25 23:08 36.7 C 75 20 103/53 L 93 01/24/25 22:33 72 01/24/25 22:23 72 25 H 93 01/24/25 19:53 37.0 C 77 20 132/67 94 01/24/25 15:41 36.9 C 105 H 16 101/71 93 01/24/25 13:55 117 H O2 Del Method O2 Flow Rate 01/25/25 11:55 Room Air 01/25/25 11:30 Room Air 01/25/25 07:55 01/25/25 07:30 Room Air 01/25/25 07:18 Room Air 01/25/25 07:00 01/25/25 03:09 Room Air 01/24/25 23:08 CPAP 01/24/25 22:33 01/24/25 22:23 2 01/24/25 19:53 Nasal Cannula 2 01/24/25 15:41 Nasal Cannula 2 01/24/25 13:55 Cardiovascular RRR, no murmur, no edema Respiratory normal respiratory effort, lungs clear to auscultation Pre-Sedation Airway Assessment Smoking Status: Never smoker Hx Sleep Apnea: Yes Hx Difficult Intubation: No Short, Thick Neck: No Thyromental Distance: > or= 3.5 Finger Breadths Oral Cavity: + Dentures Mallampati Class: III ASA: ASA3 NPO Status Date of Last Intake of Fluids: 01/24/25 Date of Last Intake of Solid Food: 01/24/25 Procedure Planning Contraindications for Sedation: none Current Medications Reviewed: Yes Notes The planned sedation has been discussed with the patient. Informed Consent was obtained. I have identified the patient, determined the appropriateness of sedation and have assessed the patient immediately prior to the procedure. All medicine(s) and interventions are by my order.
[2025-01-25] MEDS ORDERED: ACETAMINOPHEN 325 MG TAB PO PRN (14:52)
--- NOTE | 2025-01-25 14:52 | Electrophysiology Report ---
Date of Service January 25, 2025 Electrophysiology Procedure Electrophysiology Procedure Report Preoperative diagnosis: Tachybradycardia syndrome Postoperative diagnosis: Same Procedure: Dual-chamber left bundle branch pacemaker implantation Surgeon: Bill Kline MD Estimated blood loss: 20 cc Complications: None Disposition: Pump Erector Helper recovery Procedure details: After obtaining informed consent for the procedure, the patient was brought to the laboratory and prepped and draped in the standard sterile manner. The left prepectoral region was anesthetized with 1% lidocaine local anesthetic and left axillary venipuncture was performed by percutaneous technique and a guidewire placed through the left subclavian vein into the superior vena cava. The area was further infiltrated with 1% lidocaine local anesthetic and a 5 cm incision was made parallel to the left clavicle and 2 cm below it and carried down to the anterior pectoralis fascia. A pacemaker pocket was formed by blunt dissection anterior to the pectoralis fascia and a vancomycin-soaked sponge was placed in the pocket. A 9 [place] [employer] lead introducer was placed over the guidewire into the left subclavian vein, the dilator and guidewire were removed and a bipolar active fixation steroid tipped atrial lead was advanced through the introducer into the superior vena cava. A guidewire was placed through the introducer and the introducer was stripped from the lead and guidewire. A 7 [place] [employer] lead introducer was placed over the guidewire into the left subclavian vein, the dilator and guidewire were removed. A C315 His 02 septal sheath was advanced through the introducer over a guidewire and advanced into the right ventricular outflow tract. The guidewire and dilator were removed and the sheath was positioned in a mid septal location. A bipolar active fixation steroid tipped ventricular lead was advanced through the introducer and rotated to advance the screw into the septum. Septal penetration was confirmed by electrogram morphology. Pacing and sensing thresholds were evaluated in bipolar configuration and are noted on the data sheet. The septal sheath was stripped away from the lead. Using a curved stylette the atrial lead was positioned in the region of the atrial appendage and the screw extended fixing the lead in position. Pacing and sensing thresholds were evaluated in bipolar configuration and are recorded on the implant data sheet. Once the leads were in position they were attached to the anterior pectoralis fascia using 2 sutures of 2-0 silk around each lead collar. The vancomycin soaked sponge was removed from the pocket, hemostasis was obtained, the pacemaker was attached to the leads and placed in the pocket with the leads coiled beneath it. The incision was closed with a running double subcutaneous closure of 3-0 Vicryl absorbable suture, followed by running subcuticular skin closure of 4-0 Vicryl absorbable suture. Bacitracin ointment was placed on the incision and a dressing applied. [facility] [place] Electrophysiology codes Indication for Procedure (1) SSS (sick sinus syndrome): Pacing Procedure 1: Pacin Insert/Replace Pacer A & V PG Moderate Sedation Codes Moderate Sedation Codes Procedure 1: Sedation/Anesthesia: 50078 Mod Sedation by the same physician;Init15 Min Child Age 5 & Up Procedure 2: Sedation/Anesthesia: 88841 Mod Sedation by the same physician; Ea Additio nal15 Minutes
[2025-01-25] MEDS ORDERED: KETOROLAC TROMETHAMINE 10 MG TABLET PO PRN (14:54)
--- NOTE | 2025-01-25 15:23 | Post Anesthesia Assessment ---
Date of Service January 25, 2025 Post Sedation Assessment Vital Signs Temp Pulse Pulse Resp BP BP Pulse Ox 01/25/25 15:05 77 18 110/72 97 01/25/25 14:51 70 17 128/67 95 01/25/25 11:55 70 18 93/67 L 93 01/25/25 11:30 36.8 C 70 18 110/69 93 01/25/25 07:55 71 118/67 01/25/25 07:30 01/25/25 07:18 36.5 C 71 18 96/49 L 92 01/25/25 07:00 68 01/25/25 03:09 36.6 C 105 H 18 139/77 92 01/24/25 23:08 36.7 C 75 20 103/53 L 93 01/24/25 22:33 72 01/24/25 22:23 72 25 H 93 01/24/25 19:53 37.0 C 77 20 132/67 94 01/24/25 15:41 36.9 C 105 H 16 101/71 93 O2 Del Method O2 Flow Rate 01/25/25 15:05 Nasal Cannula 2 01/25/25 14:51 Nasal Cannula 2 01/25/25 11:55 Room Air 01/25/25 11:30 Room Air 01/25/25 07:55 01/25/25 07:30 Room Air 01/25/25 07:18 Room Air 01/25/25 07:00 01/25/25 03:09 Room Air 01/24/25 23:08 CPAP 01/24/25 22:33 01/24/25 22:23 2 01/24/25 19:53 Nasal Cannula 2 01/24/25 15:41 Nasal Cannula 2 Recovery Score Activity: Moves 4 extremities Respiration: Deep Breath/Cough Circulation: +/-20% PreAnes Value Consciousness: Fully Awake Oxygen Saturation: O2 needed for >90% Post Anesthesia Score: 9 Discharge Sedation Level of Care: Fast Track Phase II Post Sedation Plan On clinical assessment, the patient appears to have tolerated the sedation without complications. Patient is recovering as anticipated. Patient will continue to be monitored by nursing and may be discharged when sedation discharge criteria are met per below protocol. Upon Completions of procedure up to 15 minutes continue every 5 minute vital signs and the P.A.R. score; then discharge to a Phase I or Fast Track to Phase II per the following guidelines: * Discharge Patient to appropriate Phase II area if PAR is 8 or greater or return to pre- procedure baseline. The post - procedure orders will be as di rected. * If PAR score is less than 8 or not return to pre-procedure baseline then patient will follow Phase I monitoring till PAR is reached for Phase II. The Phase I may be done in procedure room or may call to secure a Phase I area. * If naloxone or flumazenil are used for reversal, hold in Phase I for continued monitoring from when last reversal dose was given for a minimum of 60 minutes or longer pending the nurse and/or physician discretion of patient condition before discharge to Phase II. Please call the Sedation Physician to re-evaluate and complete post-note for discharge to Phase II area. Do NOT discharge from procedure sedation or Phase 1 until post- sedation evaluation note is complete by procedure /sedation MD Sedation Discharge Instructions to be given to the patient at discharge to home.
[2025-01-25] MEDS: ceFAZolin 2000MG 2,000 MG/15 ML SYR IV SCH (15:44)
[2025-01-25] MEDS: VANCOMYCIN HCL 1000MG/20ML VIAL ONE (15:45)
[2025-01-25] MEDS: LIDOCAINE 1% LOCAL 20 ML VIAL ONE (15:45)
[2025-01-25] MEDS: fentaNYL citrate PF 100 MCG/2 ML VIAL ONE (15:46)
[2025-01-25] MEDS: WATER, STERILE FOR INJ 10 ML VIAL ONE (15:46)
[2025-01-25] MEDS: ceFAZolin 330 MG/ML 1 GM VIAL ONE (15:46)
[2025-01-25] MEDS: MIDAZOLAM HCL 5 MG/ML 1 ML VIAL ONE (15:46)
[2025-01-25] MEDS: METOPROLOL TARTRATE 25 MG TAB PO SCH (16:03)
--- NOTE | 2025-01-25 16:23 | Electrocardiogram Report ---
Test Reason : Blood Pressure : */* mmHG Vent. Rate : 68 BPM Atrial Rate : 68 BPM P-R Int : 190 ms QRS Dur : 88 ms QT Int : 432 ms P-R-T Axes : 46 -50 40 degrees QTcB Int : 459 ms Sinus rhythm atrial-paced complexes Left axis deviation Nonspecific T wave abnormality Abnormal ECG When compared with ECG of 20-Jan-2025 21:56, Sinus rhythm has replaced Atrial fibrillation Vent. rate has decreased by [address] less depressed in Lateral leads Nonspecific T wave abnormality now evident in Anterior leads T wave inversion no longer evident in Lateral leads Confirmed by Lisandro Gallo ([id number]) on 01/25/2025 4:22:48 PM Referred By: Rico Arevalo Confirmed By: Lisandro Gallo
[2025-01-25] MEDS: ACETAMINOPHEN 325 MG TAB PO PRN (23:46)
[2025-01-26 03:18] VITALS: RESP 20
[2025-01-26 07:14] LABS: Hematocrit (blood only) 33.2 % (37.0-47.0); Hemoglobin 10.8 g/dl (12.0-16.0); Mean Corpuscular Hemoglobin 30.1 pg (25.0-34.0); Mean Corpuscular Hgb Conc 32.5 g/dL (32.0-36.0); Mean Corpuscular Volume 92.5 fL (80.0-100.0); Mean Platelet Volume 9.5 fL (9.4-12.4); Platelet Count 313 K/uL (130-400); RDW Coefficient of Variation 13.8 % (11.5-14.5); RDW Standard Deviation 47.5 fL (36.4-46.3); Red Blood Count 3.59 M/uL (4.20-5.40); White Blood Count 7.49 K/ul (4.8-10.8)
[2025-01-26 07:29] LABS: BUN Creatinine Ratio 21.4 (10-20); Calcium 9.9 mg/dl (8.6-10.3); Creatinine Clr Calc Pharmacy 42.5 ml/min; Potassium 4.2 mmol/L (3.5-5.1)
--- NOTE | 2025-01-26 08:20 | Discharge Summary ---
Discharge Summary Date of Service January 26, 2025 Principal Dx & Hospital Course #1 = Principal Diagnosis (1) Hypoxia: (2) Recurrent falls: (3) Hematoma of scalp: (4) Constipation: (5) Type 2 diabetes mellitus: (6) Depression: (7) Hypertension: (8) CAD (coronary atherosclerotic disease): (9) Atrial fibrillation with rapid ventricular response: Gretel Gordon is a 79-year-old female who was admitted and treated for sick sinus syndrome/tachybradycardia syndrome with alternation between A-fib RVR and bradycardia during admission. She was seen by cardiology and underwent dual- chamber pacemaker placement on 01/25/2025. Clinically well following this with EKG confirming sinus rhythm atrial paced complexes. To do as outpatient: 1. Continue metoprolol 50 mg succinate twice daily, if well-tolerated can consolidate to 100 mg dosing as outpatient. Dose adjust/titrate as needed 2. Amlodipine held May add this back if needed for blood pressure control. Losartan was continued 3. Follow-up PCP, cardiology PT/OT evaluated admission. Doing well, recommended to return home. Chronic stable diagnoses: HTNamlodipine held, losartan continued CAD s/p stents x 2continue Plavix, Imdur, rosuvastatin Iron deficiency anemiacontinue iron supplement Osteoporosishold ibandronate as NF [id number] metformin, diabetic diet, defer BSG checks, most recent A1c 7.3% GERDcontinue PPI OSAcontinue CPAP at bedtime Depression/anxietycontinue Lexapro Admission HPI Per Admitting Provider Patient is a 79-year-old female with a past medical history of CAD s/p PCI to RCA x 2 (most recent May 2023), paroxysmal A-fib on Eliquis, asthma, smoking history. She was recently hospitalized 01/07 to 01/11 for A-fib with RVR, hypoxia, and a fall. She did well with PT/OT and was discharged home. She presented to the ED 01/20 due to recurrent falls. She is being admitted for ambulatory dysfunction with PT/OT evals. Patient seen at bedside. She stated that she fell 2 weeks ago prior to admission resulting in her left pinky fracture. At home yesterday she fell again hitting her head on the floor resulting in some ecchymosis of her eye. She stated she falls because she loses her balance, she denies tripping over anything and denies syncopal episode. She denies chest pain, heart palpitations, dizziness, lightheadedness, dyspnea prior to falls. During recent admission she was discharged with home health PT/OT which was supposed to come to her house tomorrow 01/21. Patient's oxygen was noted to drop to 88% on room air during ambulation in the ED requiring an admission. She stated that she has dyspnea on exertion however it is unchanged from her chronic baseline. She does endorse a new cough for approximately 1 week with clear mucus production, along with rhinorrhea. Patient also mentioned that she has not had a bowel movement since recent admission, roughly 10 days ago. She has been taking MiraLAX every day at home. She does still have flatulence. Patient denies headache, dizziness, sore throat, chest pain, abdominal pain, nausea, vomiting, diarrhea. She was a former smoker (1 pack/day x 15 years). She does not use oxygen at baseline. CPAP chest. She did take her home medications this morning. She wishes to be DNR/DNI. She has a 30-day Holter monitor in place. Her left pinky fracture is doing well, Denies numbness or significant pain. Patient was on amiodarone 400 Mg twice daily for 7 days. Transition to 200 twice daily on 01/20. Discussed potential for discontinuing Eliquis with recurrent falls. Patient is going to think about it. Discharge Exam General: A&Ox3. NAD. Cooperative. HEENT: Atraumatic, normocephalic. Pulm: CTAB A&P. -wheezes, -rales, -rhonchi. Symmetrical chest rise. No increased work of breathing. No respiratory distress. Cardiac: irir, rate 60s Radial pulses intact and symmetrical. Abdominal: Nontender, nondistended, soft. BS present. Discharge Plan Discharge Items Patient Disposition: Home - Home Health Services Reason For Visit: HYPOXIA, FALLS Discharge Diagnosis: Tachybradycardia syndrome s/p pacemaker placement Activity: Resume your previous activity Non-emergency contact: Primary Care Provider and [employer] Call non-emergency contact if: you have any medication questions, your symptoms worsen and your pain is not controlled Follow-up/Referrals: Rico Arevalo MD [Primary Care Provider] - Diet: Heart Healthy Addtl Attending Provider Instructions: You were seen in the hospital for a heart rhythm/rate alternating between A-fib with a rapid rate, and a very slow heart rate. This is called tachybradycardia syndrome, and sometimes called sick sinus syndrome. You were treated with a pacemaker. You are pacer was operating functionally on follow-up day of discharge. You have been prescribed metoprolol succinate. This helps control A-fib/high heart rates. Your low heart rate should not be a further problem as you are pacemaker is now functioning normally and will prevent low heart rates. Please take metoprolol succinate 50 mg by mouth twice daily. If you are doing well on this dose and it works well for both your heart rate and blood pressure, this could be consolidated to once daily dosing by your outpatient provider Your amlodipine has been held. If your blood pressure control remains good you may discontinue this medication. Your amiodarone has been discontinued. If you develop any new or worsening symptoms including fever, chills, sweats, chest pain, chest pressure, difficulty breathing, uncontrolled nausea/vomiting, rash, wheezing, passing out or nearly passing out, bleeding, black/bloody bowel movements, or other new or concerning symptoms please call your primary care physician, or call 911 for re-evaluation in the emergency department if you are very concerned. Pending Studies at Discharge: No Stand-Alone Forms: [facility], Smoking Cessation Medications and DC Order Prescriptions: New metoprolol succinate 50 mg tablet extended release 24 hr 50 mg PO BID Qty: 60 0RF Continued albuterol sulfate [Ventolin HFA] 90 mcg/actuation HFA aerosol inhaler 2 puff INH QID PRN (Reason: shortness of breath or wheezing) Qty: 18 5RF Rx Instructions: Please substitute least expensive albuterol inhaler. Eliquis 5 mg tablet 5 mg PO BID Qty: 180 3RF fenofibrate 54 mg tablet 54 mg PO QAM Qty: 90 3RF Myrbetriq 50 mg tablet extended release 24 hr 50 mg PO QAM Qty: 90 3RF rosuvastatin [Crestor] 40 mg tablet 40 mg PO DAILY Qty: 90 3RF bupropion HCl 300 mg tablet extended release 24 hr 300 mg PO QAM Qty: 90 3RF metformin 500 mg tablet 500 mg PO BID Qty: 200 3RF Trelegy Ellipta 200-62.5-25 mcg blister with device 1 inh inhalation DAILY Qty: 180 3RF Rx Instructions: rinse mouth and gargle after usage losartan 50 mg tablet 50 mg PO DAILY Qty: 90 3RF ibandronate 150 mg tablet 150 mg PO MONTHLY Qty: 3 3RF Rx Instructions: as directed. montelukast [Singulair] 10 mg tablet 10 mg PO QPM Qty: 90 3RF lorazepam 0.5 mg tablet 0.5 mg PO TID PRN (Reason: anxiety or restless legs) Qty: 90 0RF Patient Comments: Per daughter she takes every night at bedtime (DME) Accu-Chek Sandy Plus test strp Strip See Rx Instructions .Route Qty: 100 3RF Rx Instructions: check once daily As directed DX:E11.9 (DME) OneTouch Ultra Test Strip See Rx Instructions .Route Qty: 100 4RF Rx Instructions: onetouch ultra in vitro strip; check sugars once a day; DX E11.9 nitroglycerin 0.4 mg tablet, sublingual 0.4 mg sublingual Q5M PRN (Reason: chest pain) Qty: 25 0RF Rx Instructions: do not exceed 3 doses per episode clopidogrel 75 mg tablet 75 mg PO DAILY (DME) Auto Titrating CPAP Misc See Rx Instructions .Route Qty: 1 0RF Rx Instructions: 4- 15 pressure ascorbic acid (vitamin C) 500 mg capsule 500 mg PO DAILY pramipexole 0.25 mg tablet 0.25 mg PO QPM Qty: 60 5RF Rx Instructions: administer 1 hour before leg restlessness starts venlafaxine [Effexor XR] 37.5 mg capsule,extended release 24hr 37.5 mg PO DAILY Qty: 30 2RF ferrous sulfate 325 mg (65 mg iron) tablet 325 mg PO DAILY Qty: 90 1RF loratadine [Allergy Relief (loratadine)] 10 mg tablet 10 mg PO QAM vitamin B complex Tablet 1 tab PO QAM isosorbide mononitrate 30 mg tablet extended release 24 hr 30 mg PO QAM pantoprazole [Protonix] 40 mg tablet,delayed release (DR/EC) 40 mg PO QAM magnesium oxide 400 mg magnesium Tablet 400 mg PO DAILY Held amlodipine 2.5 mg tablet 2.5 mg PO DAILY Qty: 90 3RF Hold Instructions: Resume on 02/23/25. Discontinued amiodarone 200 mg tablet 0 mg PO DAILY Rx Instructions: Per pharmacy there was an error in filling this medication. Patient picked up 200mg by mouth daily but it should've been dispensed as 200mg by mouth twice daily. Per spouse the patient should've been taking it as on the bottle. Admission Data Admit Date/Time: 01/20/25 18:31 Attending Provider: Nhan Almaguer Admit Provider: Rm Frye Primary Care Provider: Rico Arevalo Other Providers: [facility]; Rm Frye; [facility] Stay Data Consultations 01/20/25 18:19 ED Decision to Admit Stat 01/20/25 22:07 Consult Cardiology Routine Procedures Performed Operation Date: 01/25/25 12:00 Actual Procedures p Pacer with A/V Leads (Dual) - Bill Kline MD Diagnostic Imagining Performed 01/20/25 14:09 CT cervical spine wo con Stat CT head/brain wo con Stat 01/25/25 06:45 EP Lab Images for PACS ONCE Discharge Instructions Given to Patient (Per Discharging Provider) You were seen in the hospital for a heart rhythm/rate alternating between A-fib with a rapid rate, and a very slow heart rate. This is called tachybradycardia syndrome, and sometimes called sick sinus syndrome. You were treated with a pacemaker. You are pacer was operating functionally on follow-up day of discharge. You have been prescribed metoprolol succinate. This helps control A-fib/high heart rates. Your low heart rate should not be a further problem as you are pacemaker is now functioning normally and will prevent low heart rates. Please take metoprolol succinate 50 mg by mouth twice daily. If you are doing well on this dose and it works well for both your heart rate and blood pressure, this could be consolidated to once daily dosing by your outpatient provider Your amlodipine has been held. If your blood pressure control remains good you may discontinue this medication. Your amiodarone has been discontinued. If you develop any new or worsening symptoms including fever, chills, sweats, chest pain, chest pressure, difficulty breathing, uncontrolled nausea/vomiting, rash, wheezing, passing out or nearly passing out, bleeding, black/bloody bowel movements, or other new or concerning symptoms please call your primary care physician, or call 911 for re-evaluation in the emergency department if you are very concerned. Total Time Total Time Spent Total Time Spent (In Minutes): Time spend day of discharge 35 minutes including direct patient care, documentation, review of labs and images, and coordination of care. Coding Level of Care Code 61533 INP/OBS DISCH >30 MIN Diagnoses Hypoxia R09.02 Recurrent falls R29.6 Hematoma of scalp S00.03XA Constipation K59.00 Type 2 diabetes mellitus E11.9 Depression F32.9 Hypertension I10 CAD (coronary atherosclerotic disease) I25.10 Atrial fibrillation with rapid ventricular response I48.91
--- NOTE | 2025-01-26 08:30 | XRay Report ---
XR chest 2V PA/lateral CLINICAL HISTORY: EXACT TIME ORDERED Evaluate for pneumothorax and l COMPARISON STUDY: 10/24/2021 FINDINGS: There is an interval left cardiac pacemaker. Stable cardiomegaly without pulmonary vascular congestion. There is interval stranding opacity in the lung bases. No pneumothorax. IMPRESSION: 1. No pneumothorax. 2. Likely atelectasis in the lung bases. Follow-up as clinically indicated. ACT 112: Negative or not required by law. Electronically signed by: Pranav Stephenson M.D. 01/26/2025 8:29 AM
[2025-01-26 09:22] VITALS: PULSE 63
--- NOTE | 2025-01-26 10:15 | Cardiology Progress Note ---
Date of Service January 26, 2025 Assessment & Plan (1) Status post placement of cardiac pacemaker: (2) Atrial flutter with rapid ventricular response: (3) Anticoagulant long-term use: Plan 1. Postop day #1: Her pacemaker is functioning very well, she does have some site swelling which is not too concerning and not unexpected as she was having oozing during surgery. Generally this will resolve by itself although I would hold anticoagulation for another day as she has maintained sinus rhythm for the most part. 2. Atrial flutter/fibrillation: She had about 20 minutes of atrial flutter this morning, that terminated spontaneously. She will need long-term anticoagulation but I would not start it this morning. Her heart rate was not terribly fast however I would increase her beta-hanna to 50 mg twice a day, I believe the plan was to discontinue amiodarone and see how she does with rate control. I do not think we need diltiazem as well. My recommendation therefore is to send her home only on metoprolol to tartrate 50 mg twice a day or metoprolol succinate 10 0 mg daily to make it easier. We can adjust rate control in the future and this device will give us good monitoring of her arrhythmia including heart rates. We can also turn on antitachycardia pacing to try to terminate the arrhythmia but we generally do not do that at implant. 3. Anticoagulation: Although ideally we would start anticoagulation as soon as we can, I would probably hold it for another day so that we do not have difficulty with further bleeding and hematoma formation. I would recommend starting Eliquis tomorrow morning. I am going to have her come into the office on Friday and we can evaluate the incision. Admission and Anticipated Discharge Date Admission Date: January 20, 2025 Subjective She is doing well postop day #1, she has no significant discomfort at her implant site (although does have some swelling and ecchymosis). No palpitations and no other cardiovascular symptoms. Physical Exam Physical Exam: The site is clean, there is some swelling which appears to be hematoma formation (there was some bleeding during the procedure and I did use Alicia to help clotting but she still had some bleeding after implant). There is no signific ant bleeding from the site although there was a little blood on the dressing. Dressing changed. Cardiac rhythm is regular with no rub Lungs are clear. Results & Data Vital Signs (Past 12 Hours) Vital Signs Temp Pulse Pulse Resp BP Pulse Ox O2 Del Method 01/26/25 08:21 63 01/26/25 07:05 36.9 C 61 20 123/71 91 Room Air 01/26/25 03:13 36.6 C 66 20 115/69 92 Room Air 01/26/25 02:35 61 33 H 93 01/25/25 23:48 36.3 C L 64 18 138/79 96 CPAP 01/25/25 22:35 83 18 96 01/25/25 22:29 65 O2 Flow Rate 01/26/25 08:21 01/26/25 07:05 01/26/25 03:13 01/26/25 02:35 2 01/25/25 23:48 01/25/25 22:35 2 01/25/25 22:29 Laboratory Results CBC 01/25/25 01/26/25 Range/Units 09:35 06:27 WBC 9.35 7.49 (4.8-10.8) K/ul RBC 3.62 L 3.59 L (4.20-5.40) M/uL Hgb 11.0 L 10.8 L (12.0-16.0) g/dl Hct 33.8 L 33.2 L (37.0-47.0) % Plt Count 339 313 (130-400) K/uL Neut # (Auto) 7.44 H (1.40-6.50) K/uL Lymph # (Auto) 0.86 L (1.20-3.40) K/uL [place] # (Auto) 0.66 H (0.11-0.59) K/uL Eos # (Auto) 0.32 (0.00-0.50) K/uL Baso # (Auto) 0.04 (0.00-0.20) K/uL Comprehensive Metabolic Panel 01/26/25 Range/Units 06:27 Sodium 135 L (136-145) mmol/L Potassium 4.2 (3.5-5.1) mmol/L Chloride 102 (98-107) mmol/L Carbon Dioxide 27 (21-32) mmol/L BUN 22 (6-23) mg/dl Creatinine 1.03 (0.6-1.2) mg/dl Glucose 105 H (70-99(Fasting)) mg/dl Calcium 9.9 (8.6-10.3) mg/dl Intake and Output 01/25/25 01/26/25 01/26/25 22:59 06:59 14:59 Other: # Unmeasured Voids 1 1 Weight 67.5 kg Weight Measurement Method Built in [facility] Diagnostic Findings Postop ECG: Intermittent atrial pacing, appropriate pacer function, she did have atrial fibrillation this morning although it was not recognized on telemetry. Telemetry: Atrial pacing and sinus rhythm, appropriate pacemaker function. Chest x-ray: Good lead position, no pneumothorax. Pacemaker evaluation: Excellent pacing and sensing characteristics. She had 20 minutes of atrial fibrillation identified by the device at around 5 AM today, the ventricular rate was well-controlled. PG Care Time/CCT Total # of Minutes Spent Total Time Spent with Patient: Total time spent is greater than 50% in coordination of care (as documented) at patient's floor/unit and/or counseling patient: Coding Level of Care Code 76968 Post Operative Follow-Up Diagnoses Status post placement of cardiac pacemaker Z95.0 Atrial flutter with rapid ventricular response I48.92 Anticoagulant long-term use Z79.01 CPT Codes Dual Lead Pacemaker System - [id number] ([id number])
[2025-01-26 11:09] VITALS: BP 144/70; TEMP 98.6; O2SAT 95
== END 2025-01-26 14:23 | disposition home health service (06) | DRG 982 ==
LOC: ED 13:37 → SUATTDRO 18:31 → EDINP 18:31 → 2N 21:19 → 2S 01-25 14:00

== ENCOUNTER 2025-03-10 19:16 | Inpatient (IN) ==
--- NOTE | 2025-03-10 19:36 | Emergency Department Note ---
Impression & Plan Recurrent falls, Shortness of breath, Cough, Rhinovirus infection, Enterovirus infection, Elevated brain natriuretic peptide (BNP) level, Ambulatory dysfunction, Hypomagnesemia ED Provider Note HISTORY OF PRESENT ILLNESS: Patient is a 79-year-old female presenting with recurrent falls and shortness of breath. Patient reports that she has fallen 3 times today. Reports she has been very unsteady on her feet and lost her balance 3 times today. Reports that she struck her head twice. Denies loss of consciousness. She is on Eliquis for history of A-fib and after recent pacemaker placement. Family at bedside reports the patient has increasing confusion today. They went to check on the patient and noted that she was very wheezy and sounded "very wet with her cough." Patient reports she has been feeling short of breath and having a cough for the last 3 to 4 days. Denies any recent sick contact exposures. Family reports the patient was just discharged from home health and home physical therapy even though her gait instability is not any better. Patient reports her tetanus is up-to-date. Patient denies any headache, change in vision, numbness or tingling or weakness in her extremities. Son presents to bedside and supplies further history. Reports the patient has actually fallen 4 times today per the patient's . Son reports the patient has been having significant worsening weakness over the last few days. Reports that she is also having intermittent episodes of confusion. He reports that patient had thought that he was his dad. ROS: as above PHYSICAL EXAM: Constitutional: Patient appears in no acute distress. HENT: Head: Normocephalic and atraumatic. Eyes: EOMI, PERRL Mouth/Throat: Mucous membranes moist. Neck: Trachea midline. Neck supple. No midline cervical spine tenderness to palpation. Cardiovascular: Tachycardic with irregularly irregular rhythm. No murmurs, rubs or gallops. Intact distal pulses. Pulmonary/Chest: No respiratory distress. Breath sounds clear and equal bilaterally. No wheezes or rales. No chest wall tenderness to palpation. Abdominal: Abdomen soft, no tenderness, rebound or guarding. Musculoskeletal: No edema, tenderness or deformity noted. Skin: Warm and dry. Abrasion overlying a hematoma to the right lateral elbow. Patient able to flex and extend at the elbow. Psychiatric: Appropriate mood and affect for situation. Neurological: Alert and keenly responsive. CN II-XII grossly intact, moving all extremities equally and fully. MDM: - Vitals signs showed tachycardia - History obtained via patient. History as above. - Chronic conditions affecting care: DM-2; depression/anxiety; HLD; GERD; HTN; CAD (s/p PCI); SSS (s/p pacemaker placement); Afib - Differential diagnoses include, but are not limited to: Intracranial hemorrhage; CVA; ACS; dysrhythmia; electrolyte abnormality; pneumonia; viral syndrome; UTI - Order placed for continuous cardiac monitoring. At this time, monitor showed rate of 110 bpm with irregular rhythm, per my interpretation. - External medical records reviewed. Wellness visit note dated was reviewed. Patient was seen for her Medicare annual wellness visit. Her venlafaxine was increased from 75 mg to 150 mg - EKG image interpreted by myself showed atrial fibrillation. Rate 105 bpm. QT 364. No acute ischemic changes noted have an incomplete right bundle branch block. - Laboratory workup interpreted by myself showed normal WBC; chronic anemia (Hgb 11.6); normal PT/INR; normal lactate; hypomagnesemia (Mg 1.2); normal troponin; elevated BNP (880); normal procalcitonin; elevated TSH (6.539) with normal T4 - Viral respiratory panel positive for rhinovirus/enterovirus infections - CXR image reviewed by myself is negative for pneumonia, per my interpretation. Radiology notes some slightly prominent interstitial markings of the lungs. - CT head wo contrast negative for intracranial pathology. Noted to have cerebral atrophy and periventricular white matter disease. - CT cervical spine wo contrast negative for acute injury. - Patient given 1g IV magnesium for electrolyte replacement. - UA ordered - Discussed results with patient and her son at bedside. They were in agreement that the patient is not safe to be discharged home given her gait instability. Patient is agreeable to potential rehab placement if evaluated by PT OT and that is the recommendation. - Discussion was had with onsite case manager about patient's case and need for admission - Hospitalist, Dr. Hussein, consulted for admission - Patient admitted to [facility] for further evaluation and management. ASSESSMENT AND PLAN: Diagnosis: Recurrent falls; shortness of breath; cough; hypomagnesemia; rhinovirus infection; enterovirus infection; elevated BNP; ambulatory dysfunction Plan: Admit Past Med/Surg History Problem List (Updated 03/10/25 @ 23:13 by Diamond Zepeda MD) Hypomagnesemia (Acute) Ambulatory dysfunction (Acute) Elevated brain natriuretic peptide (BNP) level (Acute) Enterovirus infection (Acute) Rhinovirus infection (Acute) Cough (Acute) Shortness of breath (Acute) Recurrent falls (Acute) TIA (transient ischemic attack) Urinary frequency Anticoagulant long-term use Status post placement of cardiac pacemaker Atrial fibrillation with rapid ventricular response SSS (sick sinus syndrome) Mitral regurgitation Constipation Hypoxia (Acute) Hematoma of scalp (Acute) Recurrent falls (Acute) Sinus bradycardia Atrial flutter with rapid ventricular response (Acute) Asymptomatic bacteriuria Fracture of proximal phalanx of digit of left hand Paroxysmal atrial fibrillation with RVR Mild cognitive disorder Iron deficiency anemia Lung nodules Hypertension S/P coronary artery stent placement CAD (coronary atherosclerotic disease) Memory loss Paroxysmal atrial fibrillation Osteoporosis Vitamin D deficiency (Acute) Back pain, chronic (Acute) Asthma (Acute) Allergic rhinitis (Acute) Osteoarthritis of right knee Microalbuminuria Depression (Acute) Anxiety (Acute) Multinodular goiter Type 2 diabetes mellitus (Acute) NIDDM GERD (gastroesophageal reflux disease) (Acute) Graves disease (Acute) Euthyroid per 01/31/21 thyroid studies -- no medications/issues currently, under surveillance by PCP Hyperlipidemia (Acute) Moderate obstructive sleep apnea (Acute) CPAP Pulmonary nodules (Acute) Restless legs syndrome (Acute) Medical History Pericardial effusion PAD (peripheral artery disease) Hypomagnesemia CR (acute kidney injury) Meningioma Pseudoaneurysm of left femoral artery Left groin mass Abdominal distension Diaphoresis Chest discomfort Dyspnea on exertion Abnormal thyroid blood test Cough Close exposure to 2019-nCoV Conjunctivitis Close exposure to 2019-nCoV Cough productive of purulent sputum History of COVID-19 Asthma Closed fracture of right distal fibula Thyroid nodule Osteoporosis Surgical History Hx of cardiac cath H/O laminectomy (~1991) S/P right knee arthroscopy History of esophagogastroduodenoscopy (EGD) History of colonoscopy History of cholecystectomy History of corneal transplant Family History Father Diabetes Heart disease Hemangioma Glaucoma Asthma Mother Stroke Other No family history of adverse response to anesthesia Social History (Updated 03/02/25 @ 08:40 by Rico Arevalo MD) Smoking Status: Never smoker Tobacco Type: Cigarettes Age Started Using Tobacco: 14; Age Quit Using Tobacco: 30; packs per day: 1; Second Hand Exposure: No; Do You Dip or Chew Tobacco: No; Hx Alcohol Use: No Hx Substance Use: No Preferred Language: Slovak Communication Ability: Effective Visual Impairment: No Limitations Hearing Ability: Normal Chisel Trimmer Required: No Beliefs That Will Affect Care: None marital status: Current Living Situation: Spouse current occupational status: retired Feels Safe at Home: Yes Dental Care, Regularly: Yes Seatbelt Use: always Assistive Devices: Walker Allergies Allergies Allergy/AdvReac Type Severity Reaction Status Date / Time codeine Allergy Intermediate Vomiting & Verified 03/02/25 08:05 hallucinations sulfamethoxazole Allergy Intermediate Rash Verified 03/02/25 08:05 [From Bactrim] trimethoprim [From Bactrim] Allergy Intermediate Rash Verified 03/02/25 08:05 Home Meds Home Medications Medication Instructions Recorded Confirmed loratadine 10 mg tablet (Allergy 10 mg PO QAM 06/29/20 03/10/25 Relief (loratadine)) clopidogrel 75 mg tablet 75 mg PO DAILY 06/09/23 03/10/25 isosorbide mononitrate 30 mg 30 mg PO QAM 01/07/25 03/10/25 tablet,extended release 24 hr pantoprazole 40 mg tablet,delayed 40 mg PO QAM 01/07/25 03/10/25 release (Protonix) vitamin B complex 1 tab PO QAM 01/07/25 03/10/25 ascorbic acid (vitamin C) 500 mg 500 mg PO DAILY 01/14/25 03/10/25 capsule magnesium oxide 400 mg PO DAILY 01/20/25 03/10/25 Previous Rx's Medication Instructions Recorded nitroglycerin 0.4 mg sublingual 0.4 mg sublingual Q5M PRN chest 04/29/23 tablet pain #25 tabs albuterol sulfate 90 mcg/actuation 2 puff inhalation QID PRN 01/27/24 aerosol inhaler (Ventolin HFA) shortness of breath or wheezing #18 grams fenofibrate 54 mg tablet 54 mg PO QAM #90 tabs 03/29/24 mirabegron 50 mg tablet,extended 50 mg PO QAM #90 tabs 05/28/24 release 24 hr (Myrbetriq) rosuvastatin 40 mg tablet (Crestor) 40 mg PO DAILY #90 tabs 07/13/24 bupropion HCl 300 mg 24 hr tablet, 300 mg PO QAM #90 tabs 07/19/24 extended release metformin 500 mg tablet 500 mg PO BID #200 tabs 08/04/24 fluticasone fur. 200 mcg-umeclid 1 inh inhalation DAILY #180 ea 08/31/24 62.5 mcg-vilant 25 mcg inhalat.powder (Trelegy Ellipta) losartan 50 mg tablet 50 mg PO DAILY #90 tabs 09/14/24 ibandronate 150 mg tablet 150 mg PO MONTHLY #3 tabs 09/24/24 montelukast 10 mg tablet 10 mg PO QPM #90 tabs 10/27/24 (Singulair) Auto Titrating CPAP #1 ea 11/15/24 blood sugar diagnostic (Accu-Chek #100 ea 12/04/24 Sandy Plus test strips) blood sugar diagnostic (OneTouch #100 ea 12/28/24 Ultra Test strips) ferrous sulfate 325 mg (65 mg 325 mg PO DAILY #90 tabs 01/14/25 iron) tablet pramipexole 0.25 mg tablet 0.25 mg PO QPM #60 tabs 01/14/25 apixaban 5 mg tablet (Eliquis) 5 mg PO BID #180 tabs 02/25/25 metoprolol succinate 100 mg 100 mg PO BID #60 tabs 02/25/25 tablet,extended release 24 hr lorazepam 0.5 mg tablet 0.5 mg PO TID PRN anxiety or 03/01/25 restless legs #90 tabs venlafaxine 150 mg 150 mg PO .QHS #30 caps 03/02/25 capsule,extended release 24 hr donepezil 5 mg tablet 5 mg PO DAILY #30 tabs 03/04/25 levothyroxine 25 mcg tablet 25 mcg PO DAILY #30 tabs 03/04/25 Results & Data (ED) Vital Signs Vital Signs - 24 hr 03/10/25 19:17 03/10/25 19:25 03/10/25 19:30 Temperature 36.6 C Temperature Source Temporal Artery Scan Pulse Rate 120 H 115 H Pulse Rate [Apical] 110 H Pulse Rhythm Pulse Rhythm [Apical] Irregular Respiratory Rate 18 14 Respiratory Effort / Characteristics Non-Labored Spontaneous Respiratory Depth Normal Normal Blood Pressure [Left Arm] 117/86 Blood Pressure Mean [Left Arm] 96 Blood Pressure Position Sitting Blood Pressure Position [Left Arm] Pulse Oximetry 94 92 Oxygen Delivery Method Room Air Room Air Sepsis Recent Fever Within 48 Hours No Sepsis New/Unexplained Change in Mental Status N/A Sepsis Action Taken by Nursing No Action Required 03/10/25 19:50 03/10/25 20:00 03/10/25 20:30 Temperature Temperature Source Pulse Rate 126 H Pulse Rate [Apical] 115 H 114 H Pulse Rhythm Irregular Pulse Rhythm [Apical] Irregular Respiratory Rate 25 H 18 20 Respiratory Effort / Characteristics Non-Labored Respiratory Depth Blood Pressure [Left Arm] 126/85 116/94 Blood Pressure Mean [Left Arm] 98 101 Blood Pressure Position Blood Pressure Position [Left Arm] Pulse Oximetry 92 92 91 Oxygen Delivery Method Room Air Room Air Room Air Sepsis Recent Fever Within 48 Hours Sepsis New/Unexplained Change in Mental Status Sepsis Action Taken by Nursing 03/10/25 22:00 03/10/25 23:00 03/10/25 23:04 Temperature Temperature Source Pulse Rate Pulse Rate [Apical] 118 H 118 H 115 H Pulse Rhythm Pulse Rhythm [Apical] Respiratory Rate 20 22 20 Respiratory Effort / Characteristics Respiratory Depth Blood Pressure [Left Arm] 129/100 133/105 H 122/88 Blood Pressure Mean [Left Arm] 109 114 99 Blood Pressure Position Blood Pressure Position [Left Arm] Sitting Pulse Oximetry 91 90 92 Oxygen Delivery Method Room Air Room Air Room Air Sepsis Recent Fever Within 48 Hours Sepsis New/Unexplained Change in Mental Status Sepsis Action Taken by Nursing 03/10/25 23:05 Temperature Temperature Source Pulse Rate Pulse Rate [Apical] Pulse Rhythm Pulse Rhythm [Apical] Respiratory Rate Respiratory Effort / Characteristics Respiratory Depth Blood Pressure [Left Arm] Blood Pressure Mean [Left Arm] Blood Pressure Position Blood Pressure Position [Left Arm] Pulse Oximetry 91 Oxygen Delivery Method Room Air Sepsis Recent Fever Within 48 Hours Sepsis New/Unexplained Change in Mental Status Sepsis Action Taken by Nursing Laboratory Data 03/10/25 20:17 03/10/25 20:17 Lab Results 03/10/25 03/10/25 03/10/25 Range/Units 19:41 19:49 20:17 WBC 9.08 (4.8-10.8) K/ul RBC 3.92 L (4.20-5.40) M/uL Hgb 11.6 L (12.0-16.0) g/dl Hct 36.8 L (37.0-47.0) % MCV 93.9 (80.0-100.0) fL MCH 29.6 (25.0-34.0) pg MCHC 31.5 L (32.0-36.0) g/dL RDW Std Deviation 50.0 H (36.4-46.3) fL RDW Coeff of Ambreen 14.5 (11.5-14.5) % Plt Count 364 (130-400) K/uL MPV 9.3 L (9.4-12.4) fL Immature Gran % (Auto) 0.2 % Neut % (Auto) 83.2 % Lymph % (Auto) 8.7 % [place] % (Auto) 5.6 % Eos % (Auto) 1.9 % Baso % (Auto) 0.4 % Neut # (Auto) 7.55 H (1.40-6.50) K/uL Lymph # (Auto) 0.79 L (1.20-3.40) K/uL [place] # (Auto) 0.51 (0.11-0.59) K/uL Eos # (Auto) 0.17 (0.00-0.50) K/uL Baso # (Auto) 0.04 (0.00-0.20) K/uL Immature Gran # (Auto) 0.02 (0.01-0.20) K/uL PT 11.9 (9.0-12.0) Seconds INR 1.1 (0.9-1.1) Sodium 138 (136-145) mmol/L Potassium 3.7 (3.5-5.1) mmol/L Chloride 103 (98-107) mmol/L Carbon Dioxide 29 (21-32) mmol/L Anion Gap 6 (3-11) BUN 22 (6-23) mg/dl Creatinine 1.03 (0.6-1.2) mg/dl Est Cr Clr Drug Dosing 42.3 ml/min eGFR 55.65 BUN/Creatinine Ratio 21.4 H (10-20) Glucose 133 H (70-99(Fasting)) mg/dl POC Glucose 126 H (70-99) mg/dl Lactate (0.4-2.0) mmol/L Calcium 9.6 (8.6-10.3) mg/dl Magnesium 1.2 L (1.7-2.4) mg/dl Total Bilirubin 0.6 (0.2-1.0) mg/dl AST 13 (13-39) U/L ALT 7 (7-52) U/L Alkaline Phosphatase 33 L (34-104) U/L Troponin I High Sens 5.7 (0-14) pg/ml B-Natriuretic Peptide 880 H (0-100) pg/ml Total Protein 7.7 (6.0-8.3) gm/dl Albumin 4.5 (3.4-5.0) gm/dl Globulin 3.2 (2.5-4.0) gm/dl Albumin/Globulin Ratio 1.4 (0.9-2) Procalcitonin < 0.02 (0-0.5) ng/ml TSH 6.539 H (0.300-4.500) uIu/ml Free T4 0.84 (0.61-1.60) ng/dl Adenovirus (PCR) Not Detected (NotDetected) B. pertussis DNA (PCR) Not Detected (NotDetected) B.parapertussis DNA PCR Not Detected (NotDetected) C. pneumoniae DNA (PCR) Not Detected (NotDetected) Coronavirus OC43 (PCR) Not Detected (NotDetected) Coronavirus HKU1 (PCR) Not Detected (NotDetected) Coronavirus 229E (PCR) Not Detected (NotDetected) SARS-CoV-2 (PCR) Not Detected (NotDetected) Coronavirus NL63 (PCR) Not Detected (NotDetected) Human Metapneumovir PCR Not Detected (NotDetected) Influenza Type A (PCR) Not Detected (NotDetected) Influenza Type B (PCR) Not Detected (NotDetected) M. pneumoniae (PCR) Not Detected (NotDetected) Parainfluenza 1 (PCR) Not Detected (NotDetected) Parainfluenza 2 (PCR) Not Detected (NotDetected) Parainfluenza 3 (PCR) Not Detected (NotDetected) Parainfluenza 4 (PCR) Not Detected (NotDetected) RSV (PCR) Not Detected (NotDetected) Entero/Rhino (PCR) DETECTED A (NotDetected) 03/10/25 Range/Units 20:37 WBC (4.8-10.8) K/ul RBC (4.20-5.40) M/uL Hgb (12.0-16.0) g/dl Hct (37.0-47.0) % MCV (80.0-100.0) fL MCH (25.0-34.0) pg MCHC (32.0-36.0) g/dL RDW Std Deviation (36.4-46.3) fL RDW Coeff of Ambreen (11.5-14.5) % Plt Count (130-400) K/uL MPV (9.4-12.4) fL Immature Gran % (Auto) % Neut % (Auto) % Lymph % (Auto) % [place] % (Auto) % Eos % (Auto) % Baso % (Auto) % Neut # (Auto) (1.40-6.50) K/uL Lymph # (Auto) (1.20-3.40) K/uL [place] # (Auto) (0.11-0.59) K/uL Eos # (Auto) (0.00-0.50) K/uL Baso # (Auto) (0.00-0.20) K/uL Immature Gran # (Auto) (0.01-0.20) K/uL PT (9.0-12.0) Seconds INR (0.9-1.1) Sodium (136-145) mmol/L Potassium (3.5-5.1) mmol/L Chloride (98-107) mmol/L Carbon Dioxide (21-32) mmol/L Anion Gap (3-11) BUN (6-23) mg/dl Creatinine (0.6-1.2) mg/dl Est Cr Clr Drug Dosing ml/min eGFR BUN/Creatinine Ratio (10-20) Glucose (70-99(Fasting)) mg/dl POC Glucose (70-99) mg/dl Lactate 1.1 (0.4-2.0) mmol/L Calcium (8.6-10.3) mg/dl Magnesium (1.7-2.4) mg/dl Total Bilirubin (0.2-1.0) mg/dl AST (13-39) U/L ALT (7-52) U/L Alkaline Phosphatase (34-104) U/L Troponin I High Sens (0-14) pg/ml B-Natriuretic Peptide (0-100) pg/ml Total Protein (6.0-8.3) gm/dl Albumin (3.4-5.0) gm/dl Globulin (2.5-4.0) gm/dl Albumin/Globulin Ratio (0.9-2) Procalcitonin (0-0.5) ng/ml TSH (0.300-4.500) uIu/ml Free T4 (0.61-1.60) ng/dl Adenovirus (PCR) (NotDetected) B. pertussis DNA (PCR) (NotDetected) B.parapertussis DNA PCR (NotDetected) C. pneumoniae DNA (PCR) (NotDetected) Coronavirus OC43 (PCR) (NotDetected) Coronavirus HKU1 (PCR) (NotDetected) Coronavirus 229E (PCR) (NotDetected) SARS-CoV-2 (PCR) (NotDetected) Coronavirus NL63 (PCR) (NotDetected) Human Metapneumovir PCR (NotDetected) Influenza Type A (PCR) (NotDetected) Influenza Type B (PCR) (NotDetected) M. pneumoniae (PCR) (NotDetected) Parainfluenza 1 (PCR) (NotDetected) Parainfluenza 2 (PCR) (NotDetected) Parainfluenza 3 (PCR) (NotDetected) Parainfluenza 4 (PCR) (NotDetected) RSV (PCR) (NotDetected) Entero/Rhino (PCR) (NotDetected) Administered Medications Discontinued Medications Magnesium Sulfate/Dextrose (Magnesium Sulfate / D5w) 1 gm in 100 mls @ 100 mls/hr IV NOW STA Stop: 03/10/25 22:04 Last Infusion: 03/10/25 22:58 Dose: Infused Documented By: Admin: 03/10/25 21:49 Dose: 100 mls/hr Documented By: MNS Imaging Data Radiologist's Impression: Cervical Spine CT 03/10/25 19:31 Exam(s): CT C SPINE EXAM: CT Cervical Spine Without Intravenous Contrast CLINICAL HISTORY: Reason for exam: fall from standing; on Eliquis. TECHNIQUE: Axial computed tomography images of the cervical spine without intravenous contrast. CTDI is 37.22 mGy and DLP is 1000.2 mGy-cm. Automated exposure control was utilized for the study. A dose lowering technique was utilized adhering to the principles of ALARA. COMPARISON: No relevant prior studies available. FINDINGS: Vertebrae: Mild narrowing and osteophytosis at the atlantodental joint. The odontoid process is intact. Mild to moderate multilevel degenerative disc disease and facet arthrosis throughout the cervical spine. There is 2 mm anterolisthesis of C2 on C3 due to degenerative facet arthrosis. No acute fracture or traumatic subluxation is seen. Probable previous left hemilaminectomy at C5. Soft tissues: Unremarkable. Vasculature: Severe calcification of the carotid bifurcation bilaterally. DISCS/SPINAL CANAL/NEURAL FORAMINA: C2-C3: Mild degenerative disc disease. No stenosis. C3-C4: Moderate degenerative disc disease. 4 mm posterior left side disc herniation narrowing the thecal sac to 6 mm and causing severe left neural foraminal narrowing. C4-C5: Mild degenerative disc disease. Broad-based posterior 2-3 mm disc bulge and/or disc marginal osteophyte formation narrowing the thecal sac to 7 mm. There is severe bilateral neural foraminal narrowing. C5-C6: Mild degenerative disc disease. 2 mm broad-based posterior disc bulge narrowing the thecal sac to 8 mm. C6-C7: Mild degenerative disc disease. Mild spinal stenosis measuring 9 mm. C7-T1: Mild degenerative disc disease. No stenosis. IMPRESSION: Moderate degenerative changes throughout the cervical spine as described above. No acute fracture or traumatic subluxation. There is multilevel spinal stenosis, greatest at C3-4. Electronically signed by: Santos Hussein MD 03/10/25 21:56 PM Chest X-Ray 03/10/25 19:31 Exam(s): XR CXR 1 VIEW EXAM: XR Chest, 1 View CLINICAL HISTORY: Reason for exam: weakness; cough. TECHNIQUE: Frontal view of the chest. COMPARISON: January 26, 2025 FINDINGS: Lungs: Slightly prominent interstitial markings in the lungs, exaggerated by body habitus and portable technique. No overt edema or acute focal infiltrate is identified. Pleural space: Unremarkable. No pneumothorax. Heart: Unremarkable. No cardiomegaly. Mediastinum: Unremarkable. Normal mediastinal contour. Bones/joints: Unremarkable. No acute fracture. Tubes, lines and devices: There is a pacing device in the left with the 20 to the right side of the heart. The cardiac silhouette is moderately enlarged. Probable mitral calcification. IMPRESSION: 1. There is a pacing device in the left with the 20 to the right side of the heart. The cardiac silhouette is moderately enlarged. Probable mitral calcification. 2. Slightly prominent interstitial markings in the lungs, exaggerated by body habitus and portable technique. No overt edema or acute focal infiltrate is identified. Electronically signed by: Santos Hussein MD 03/10/25 21:[address] 03/10/25 19:31 Exam(s): CT HEAD Without Contrast EXAM: CT Head Without Intravenous Contrast CLINICAL HISTORY: Reason for exam: fall from standing; on Eliquis. TECHNIQUE: Axial computed tomography images of the head/brain without intravenous contrast. CTDI is 37.22 mGy and DLP is 1000.2 mGy-cm. Automated exposure control was utilized for the study. A dose lowering technique was utilized adhering to the principles of ALARA. COMPARISON: January 20, 2025 FINDINGS: Brain: Calcified 1.2 cm extra-axial nodule in the left sylvian fissure consistent with old meningioma, unchanged. No significant mass-effect upon the brain. Mild cerebral atrophy and periventricular white matter low density consistent with chronic small vessel disease and/or senescent changes, unchanged. No acute large vessel infarct or intracranial hemorrhage is seen. Ventricles: Unremarkable. No ventriculomegaly. Bones/joints: Mild hyperostosis of the skull. No acute fracture. Soft tissues: Unremarkable. Sinuses: Unremarkable as visualized. No acute sinusitis. Mastoid air cells: Unremarkable as visualized. No mastoid effusion. IMPRESSION: Mild cerebral atrophy and periventricular white matter low density consistent with chronic small vessel disease and/or senescent changes, unchanged. No acute large vessel infarct or intracranial hemorrhage is seen. Electronically signed by: Santos Hussein MD 03/10/25 21:48 PM Discharge Plan Visit Data Chief Complaint: Altered Mental Status Stated Complaint: FALLS,CONFUSION,COUGH ED Provider: Diamond Zepeda Discharge Problem: Recurrent falls, Shortness of breath, Cough, Rhinovirus infection, Enterovirus infection, Elevated brain natriuretic peptide (BNP) level, Ambulatory dysfunction, Hypomagnesemia Forms Stand Alone Forms: My [facility] [employer] Prescriptions Prescriptions: No Action albuterol sulfate [Ventolin HFA] 90 mcg/actuation HFA aerosol inhaler 2 puff INH QID PRN (Reason: shortness of breath or wheezing) Qty: 18 5RF Rx Instructions: Please substitute least expensive albuterol inhaler. fenofibrate 54 mg tablet 54 mg PO QAM Qty: 90 3RF Myrbetriq 50 mg tablet extended release 24 hr 50 mg PO QAM Qty: 90 3RF rosuvastatin [Crestor] 40 mg tablet 40 mg PO DAILY Qty: 90 3RF bupropion HCl 300 mg tablet extended release 24 hr 300 mg PO QAM Qty: 90 3RF metformin 500 mg tablet 500 mg PO BID Qty: 200 3RF Trelegy Ellipta 200-62.5-25 mcg blister with device 1 inh inhalation DAILY Qty: 180 3RF Rx Instructions: rinse mouth and gargle after usage losartan 50 mg tablet 50 mg PO DAILY Qty: 90 3RF ibandronate 150 mg tablet 150 mg PO MONTHLY Qty: 3 3RF Rx Instructions: as directed. montelukast [Singulair] 10 mg tablet 10 mg PO QPM Qty: 90 3RF (DME) Accu-Chek Sandy Plus test strp Strip See Rx Instructions .Route Qty: 100 3RF Rx Instructions: check once daily As directed DX:E11.9 (DME) OneTouch Ultra Test Strip See Rx Instructions .Route Qty: 100 4RF Rx Instructions: onetouch ultra in vitro strip; check sugars once a day; DX E11.9 Eliquis 5 mg tablet 5 mg PO BID Qty: 180 3RF lorazepam 0.5 mg tablet 0.5 mg PO TID PRN (Reason: anxiety or restless legs) Qty: 90 0RF Patient Comments: Per daughter she takes every night at bedtime donepezil 5 mg tablet 5 mg PO DAILY Qty: 30 11RF Rx Instructions: take with breakfast levothyroxine 25 mcg tablet 25 mcg PO DAILY Qty: 30 5RF nitroglycerin 0.4 mg tablet, sublingual 0.4 mg sublingual Q5M PRN (Reason: chest pain) Qty: 25 0RF Rx Instructions: do not exceed 3 doses per episode clopidogrel 75 mg tablet 75 mg PO DAILY (DME) Auto Titrating CPAP Misc See Rx Instructions .Route Qty: 1 0RF Rx Instructions: 4- 15 pressure metoprolol succinate 100 mg tablet extended release 24 hr 100 mg PO BID Qty: 60 5RF venlafaxine 150 mg capsule,extended release 24hr 150 mg PO .QHS Qty: 30 11RF ascorbic acid (vitamin C) 500 mg capsule 500 mg PO DAILY pramipexole 0.25 mg tablet 0.25 mg PO QPM Qty: 60 5RF Rx Instructions: administer 1 hour before leg restlessness starts ferrous sulfate 325 mg (65 mg iron) tablet 325 mg PO DAILY Qty: 90 1RF loratadine [Allergy Relief (loratadine)] 10 mg tablet 10 mg PO QAM vitamin B complex Tablet 1 tab PO QAM isosorbide mononitrate 30 mg tablet extended release 24 hr 30 mg PO QAM pantoprazole [Protonix] 40 mg tablet,delayed release (DR/EC) 40 mg PO QAM magnesium oxide 400 mg magnesium Tablet 400 mg PO DAILY Referrals Referrals: Rico Arevalo MD [Primary Care Provider] -
[2025-03-10 20:50] LABS: Basophils # (auto) 0.04 K/uL (0.00-0.20); Basophils % (auto) 0.4 %; Eosinophils # (auto) 0.17 K/uL (0.00-0.50); Eosinophils % (auto) 1.9 %; Hematocrit (blood only) 36.8 % (37.0-47.0); Hemoglobin 11.6 g/dl (12.0-16.0); Immature Granulocytes # (auto) 0.02 K/uL (0.01-0.20); Immature Granulocytes % (auto) 0.2 %; Lymphocytes # (auto) 0.79 K/uL (1.20-3.40); Lymphocytes % (auto) 8.7 %; Mean Corpuscular Hemoglobin 29.6 pg (25.0-34.0); Mean Corpuscular Hgb Conc 31.5 g/dL (32.0-36.0); Mean Corpuscular Volume 93.9 fL (80.0-100.0); Mean Platelet Volume 9.3 fL (9.4-12.4); Monocytes # (auto) 0.51 K/uL (0.11-0.59); Monocytes % (auto) 5.6 %; Neutrophils # (auto) 7.55 K/uL (1.40-6.50); Neutrophils % (auto) 83.2 %; Platelet Count 364 K/uL (130-400); RDW Coefficient of Variation 14.5 % (11.5-14.5); Red Blood Count 3.92 M/uL (4.20-5.40); White Blood Count 9.08 K/ul (4.8-10.8)
[2025-03-10 20:51] LABS: Albumin Globulin Ratio 1.4 (0.9-2); Albumin Level 4.5 gm/dl (3.4-5.0); BUN Creatinine Ratio 21.4 (10-20); Bilirubin,Total 0.6 mg/dl (0.2-1.0); Calcium 9.6 mg/dl (8.6-10.3); Creatinine Clr Calc Pharmacy 42.3 ml/min; Globulin 3.2 gm/dl (2.5-4.0); Magnesium 1.2 mg/dl (1.7-2.4); Potassium 3.7 mmol/L (3.5-5.1); Total Protein 7.7 gm/dl (6.0-8.3)
[2025-03-10 20:58] LABS: Troponin I High Sensitivity 5.7 pg/ml (0-14)
[2025-03-10 21:00] LABS: INR 1.1 (0.9-1.1); Prothrombin Time 11.9 Seconds (9.0-12.0)
[2025-03-10 21:08] LABS: Thyroid Stimulating Hormone 6.539 uIu/ml (0.300-4.500)
[2025-03-10 21:15] LABS: Adenovirus PCR Not Detected (NotDetected); Bordetella parapertussis PCR Not Detected (NotDetected); Bordetella pertussis PCR Not Detected (NotDetected); Chlamydia pneumoniae PCR Not Detected (NotDetected); Coronavirus 229E PCR Not Detected (NotDetected); Coronavirus CoV-2 (COVID19)PCR Not Detected (NotDetected); Coronavirus HKU1 PCR Not Detected (NotDetected); Coronavirus NL63 PCR Not Detected (NotDetected); Coronavirus OC43PCR Not Detected (NotDetected); Human Metapneumovirus PCR Not Detected (NotDetected); Influenza A PCR Not Detected (NotDetected); Influenza B PCR Not Detected (NotDetected); Mycoplasma pneumoniae PCR Not Detected (NotDetected); Parainfluenza Virus 1 PCR Not Detected (NotDetected); Parainfluenza Virus 2 PCR Not Detected (NotDetected); Parainfluenza Virus 3 PCR Not Detected (NotDetected); Parainfluenza Virus 4 PCR Not Detected (NotDetected); Respiratory Syncytial VirusPCR Not Detected (NotDetected); Rhinovirus/Enterovirus PCR DETECTED (NotDetected)
--- NOTE | 2025-03-10 21:36 | XRay Report ---
Exam(s): XR CXR 1 VIEW EXAM: XR Chest, 1 View CLINICAL HISTORY: Reason for exam: weakness; cough. TECHNIQUE: Frontal view of the chest. COMPARISON: January 26, 2025 FINDINGS: Lungs: Slightly prominent interstitial markings in the lungs, exaggerated by body habitus and portable technique. No overt edema or acute focal infiltrate is identified. Pleural space: Unremarkable. No pneumothorax. Heart: Unremarkable. No cardiomegaly. Mediastinum: Unremarkable. Normal mediastinal contour. Bones/joints: Unremarkable. No acute fracture. Tubes, lines and devices: There is a pacing device in the left with the 20 to the right side of the heart. The cardiac silhouette is moderately enlarged. Probable mitral calcification. IMPRESSION: 1. There is a pacing device in the left with the 20 to the right side of the heart. The cardiac silhouette is moderately enlarged. Probable mitral calcification. 2. Slightly prominent interstitial markings in the lungs, exaggerated by body habitus and portable technique. No overt edema or acute focal infiltrate is identified. Electronically signed by: Santos Hussein MD 03/10/25 21:35 PM
[2025-03-10 21:45] LABS: T4 Free Thyroxine 0.84 ng/dl (0.61-1.60)
[2025-03-10] MEDS: MAGNESIUM SULFATE / D5W 1 GM/100 ML BAG IV STA (21:49)
--- NOTE | 2025-03-10 21:49 | CT Scan Report ---
Exam(s): CT HEAD Without Contrast EXAM: CT Head Without Intravenous Contrast CLINICAL HISTORY: Reason for exam: fall from standing; on Eliquis. TECHNIQUE: Axial computed tomography images of the head/brain without intravenous contrast. CTDI is 37.22 mGy and DLP is 1000.2 mGy-cm. Automated exposure control was utilized for the study. A dose lowering technique was utilized adhering to the principles of ALARA. COMPARISON: January 20, 2025 FINDINGS: Brain: Calcified 1.2 cm extra-axial nodule in the left sylvian fissure consistent with old meningioma, unchanged. No significant mass-effect upon the brain. Mild cerebral atrophy and periventricular white matter low density consistent with chronic small vessel disease and/or senescent changes, unchanged. No acute large vessel infarct or intracranial hemorrhage is seen. Ventricles: Unremarkable. No ventriculomegaly. Bones/joints: Mild hyperostosis of the skull. No acute fracture. Soft tissues: Unremarkable. Sinuses: Unremarkable as visualized. No acute sinusitis. Mastoid air cells: Unremarkable as visualized. No mastoid effusion. IMPRESSION: Mild cerebral atrophy and periventricular white matter low density consistent with chronic small vessel disease and/or senescent changes, unchanged. No acute large vessel infarct or intracranial hemorrhage is seen. Electronically signed by: Santos Hussein MD 03/10/25 21:48 PM
--- NOTE | 2025-03-10 21:57 | CT Scan Report ---
Exam(s): CT C SPINE EXAM: CT Cervical Spine Without Intravenous Contrast CLINICAL HISTORY: Reason for exam: fall from standing; on Eliquis. TECHNIQUE: Axial computed tomography images of the cervical spine without intravenous contrast. CTDI is 37.22 mGy and DLP is 1000.2 mGy-cm. Automated exposure control was utilized for the study. A dose lowering technique was utilized adhering to the principles of ALARA. COMPARISON: No relevant prior studies available. FINDINGS: Vertebrae: Mild narrowing and osteophytosis at the atlantodental joint. The odontoid process is intact. Mild to moderate multilevel degenerative disc disease and facet arthrosis throughout the cervical spine. There is 2 mm anterolisthesis of C2 on C3 due to degenerative facet arthrosis. No acute fracture or traumatic subluxation is seen. Probable previous left hemilaminectomy at C5. Soft tissues: Unremarkable. Vasculature: Severe calcification of the carotid bifurcation bilaterally. DISCS/SPINAL CANAL/NEURAL FORAMINA: C2-C3: Mild degenerative disc disease. No stenosis. C3-C4: Moderate degenerative disc disease. 4 mm posterior left side disc herniation narrowing the thecal sac to 6 mm and causing severe left neural foraminal narrowing. C4-C5: Mild degenerative disc disease. Broad-based posterior 2-3 mm disc bulge and/or disc marginal osteophyte formation narrowing the thecal sac to 7 mm. There is severe bilateral neural foraminal narrowing. C5-C6: Mild degenerative disc disease. 2 mm broad-based posterior disc bulge narrowing the thecal sac to 8 mm. C6-C7: Mild degenerative disc disease. Mild spinal stenosis measuring 9 mm. C7-T1: Mild degenerative disc disease. No stenosis. IMPRESSION: Moderate degenerative changes throughout the cervical spine as described above. No acute fracture or traumatic subluxation. There is multilevel spinal stenosis, greatest at C3-4. Electronically signed by: Santos Hussein MD 03/10/25 21:56 PM
[2025-03-10 23:19] LABS: Appearance Urine Clear (Clear); Bacteria Urine Automated None Seen (None Seen); Bilirubin Urine Negative (Negative); Blood Urine Negative (Negative); Color Urine Yellow; Epithelial Cell Urine Auto 0-2 /hpf (0-2); Glucose Urine UA Negative (Negative); Ketones Urine Negative (Negative); Leukocyte Esterase Urine 1+ (Negative); Nitrite Urine Negative (Negative); Protein Urine Trace (Negative); RBC Urine Automated 0-2 /hpf (0-2); Specific Gravity Urine 1.017 (1.000-1.030); Urobilinogen Urine Negative (Negative); WBC Urine Automated 0-5 /hpf (0-5)
--- NOTE | 2025-03-10 23:36 | History & Physical Report ---
Date of Service March 10, 2025 Assessment & Plan (1) Ambulatory dysfunction: (2) Confusion: (3) Enterovirus infection: (4) Asthma: (5) Atrial fibrillation with rapid ventricular response: (6) Hypertension: (7) CAD (coronary atherosclerotic disease): (8) Type 2 diabetes mellitus: Plan 79-year-old female with history of atrial fibrillation on Eliquis anticoagulation, hypertension, CAD, diabetes presenting with progressive confusion and ambulatory dysfunction, acutely worsening over the last 3 to 4 days. Patient with 4 falls prior to arrival with minor head trauma. Found to have enterovirus infection. #Ambulatory dysfunctionpatient with functional decline over the last month, acutely worsening over the last 3 to 4 days. Suspect enterovirus infection contributing to her acute decline. Patient did sustain 4 falls prior to arrival resulting in mild head trauma. She does have a cane and walker and uses them both occasionally. CT of the head with mild cerebral atrophy and periventricular white matter changes consistent with chronic small vessel disease. Unremarkable ventricles. Admit to medical with telemetry Maintain fall precautions PT/OT evaluation appreciated Neurochecks with [place] Coma Scale every 4 hourspatient with head trauma on Eliquis anticoagulation Warm compresses to right elbow hematoma Wound care and dressing changes daily and as needed #Confusionpatient with progressive confusion over the last month, acutely worsening over the last 3 to 4 days. Again, suspect that acute enterovirus infection is contributing to patient's confusion. Patient is scheduled to follow-up with neurology outpatient for additional workup of these matters including MRI/MRA brain. Son relays that they are considering a diagnosis of possible TIAs, possible Parkinson's disease. Normal B12 level of 633 on March 04, 2025 Aricept recently started by patient's PCP Continue Aricept 5 mg p.o. daily - Frequent orientation delirium prevention strategies Conservative management of enterovirus infection #Enterovirus infectionpatient reports some worsening cough. She is wheezing diffusely on physical exam. 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 She has followed up with cardiology and is overall doing well. She is compliant with her metoprolol as well as her apixaban Continue apixaban 5 mg p.o. twice daily Continue metoprolol 100 mg p.o. twice daily #Asthmapatient with diffuse wheezing present on exam. She does endorse some stable baseline shortness of breath but no worsening. Also with mild cough. Saturation = 91% on room air Supplemental oxygen as needed Continue home umeclidinium and vilanterol, fluticasone DuoNebs every 4 hours Xopenex nebs every 4 hours as needed Flutter valve #Coronary artery diseasestable, no chest pain Continue Plavix Continue Crestor #mental health Continue venlafaxine 150 mg Continue bupropion 300 mg p.o. every morning Continue Ativan 0.5 mg p.o. 3 times daily as needed for anxiety or restless legs. #Hyperlipidemia Continue Crestor 40 mg p.o. daily #Restless leg syndrome #Continue Mirapex 0.25 mg every afternoon #GERD Continue Protonix 40 mg p.o. every morning #Hypothyroidism Continue Synthroid History of Present Illness Chief Complaint: Confusion, gait instability, falls Primary Care Provider: Rico Arevalo MD Heidi James is a pleasant 71-year-old female with history of atrial fibrillation on Eliquis anticoagulation, peripheral arterial disease, hypertension, CAD, hyperlipidemia, diabetes and restless leg syndrome from home with 3 to 4 days of worsening confusion as well as gait instability and frequent falls. Patient's son is at bedside and provides ancillary history. He reports that patient has had increased forgetfulness, repeating conversations and brief episodes of confusion (for example, thought that her son was her today). These symptoms have been ongoing for the last week but have increased in frequency specifically over the last 3 to 4 days. She is scheduled to see Neurology for these issuesto have MRI/MRA on 03/14/2025 - concern for TIA vs Parkinson's? Patient has also had increased gait instability over the last 3 to 4 days. She has a cane and a walker at home but frequently does not use them. She has fallen 4 times today. She has hit her head on the floor at least twice and sustained a skin tear and a hematoma to her right arm. No loss of consciousness. No chest pain/palpitations/dizziness or lightheadedness preceding or following the fall. She reports that she simply "loses her balance" and feels occasionally that her legs give out beneath her. Patient has had some baseline gait instability which has been increasing over the last month but acutely worse over the last 3 to 4 days. She denies fever, chills, chest pain, palpitations. She has a mild cough and stable shortness of breath. She did have some nausea and vomiting 4 days ago which has since resolved. No additional complaints at this time In the ER she is afebrile, atrial fibrillation with elevated rate, presently 118 bpm Allergies Allergy/AdvReac Type Severity Reaction Status Date / Time codeine Allergy Intermediate Vomiting & Verified 03/02/25 08:05 hallucinations sulfamethoxazole Allergy Intermediate Rash Verified 03/02/25 08:05 [From Bactrim] trimethoprim [From Bactrim] Allergy Intermediate Rash Verified 03/02/25 08:05 Home Medications Medication Instructions Recorded Confirmed Type loratadine 10 mg tablet (Allergy 10 mg PO QAM 06/29/20 03/10/25 History Relief (loratadine)) nitroglycerin 0.4 mg sublingual 0.4 mg sublingual Q5M PRN chest 04/29/23 03/10/25 Rx tablet pain #25 tabs clopidogrel 75 mg tablet 75 mg PO DAILY 06/09/23 03/10/25 History albuterol sulfate 90 mcg/actuation 2 puff inhalation QID PRN 01/27/24 03/10/25 Rx aerosol inhaler (Ventolin HFA) shortness of breath or wheezing #18 grams fenofibrate 54 mg tablet 54 mg PO QAM #90 tabs 03/29/24 03/10/25 Rx mirabegron 50 mg tablet,extended 50 mg PO QAM #90 tabs 05/28/24 03/10/25 Rx release 24 hr (Myrbetriq) rosuvastatin 40 mg tablet (Crestor) 40 mg PO DAILY #90 tabs 07/13/24 03/10/25 Rx bupropion HCl 300 mg 24 hr tablet, 300 mg PO QAM #90 tabs 07/19/24 03/10/25 Rx extended release metformin 500 mg tablet 500 mg PO BID #200 tabs 08/04/24 03/10/25 Rx fluticasone fur. 200 mcg-umeclid 1 inh inhalation DAILY #180 ea 08/31/24 03/10/25 Rx 62.5 mcg-vilant 25 mcg inhalat.powder (Trelegy Ellipta) losartan 50 mg tablet 50 mg PO DAILY #90 tabs 09/14/24 03/10/25 Rx ibandronate 150 mg tablet 150 mg PO MONTHLY #3 tabs 09/24/24 03/10/25 Rx montelukast 10 mg tablet 10 mg PO QPM #90 tabs 10/27/24 03/10/25 Rx (Singulair) Auto Titrating CPAP #1 ea 11/15/24 03/10/25 Rx blood sugar diagnostic (Accu-Chek #100 ea 12/04/24 03/10/25 Rx Sandy Plus test strips) blood sugar diagnostic (OneTouch #100 ea 12/28/24 03/10/25 Rx Ultra Test strips) isosorbide mononitrate 30 mg 30 mg PO QAM 01/07/25 03/10/25 History tablet,extended release 24 hr pantoprazole 40 mg tablet,delayed 40 mg PO QAM 01/07/25 03/10/25 History release (Protonix) vitamin B complex 1 tab PO QAM 01/07/25 03/10/25 History ascorbic acid (vitamin C) 500 mg 500 mg PO DAILY 01/14/25 03/10/25 History capsule ferrous sulfate 325 mg (65 mg 325 mg PO DAILY #90 tabs 01/14/25 03/10/25 Rx iron) tablet pramipexole 0.25 mg tablet 0.25 mg PO QPM #60 tabs 01/14/25 03/10/25 Rx magnesium oxide 400 mg PO DAILY 01/20/25 03/10/25 History apixaban 5 mg tablet (Eliquis) 5 mg PO BID #180 tabs 02/25/25 03/10/25 Rx metoprolol succinate 100 mg 100 mg PO BID #60 tabs 02/25/25 03/10/25 Rx tablet,extended release 24 hr lorazepam 0.5 mg tablet 0.5 mg PO TID PRN anxiety or 03/01/25 03/10/25 Rx restless legs #90 tabs venlafaxine 150 mg 150 mg PO .QHS #30 caps 03/02/25 03/10/25 Rx capsule,extended release 24 hr donepezil 5 mg tablet 5 mg PO DAILY #30 tabs 03/04/25 03/10/25 Rx levothyroxine 25 mcg tablet 25 mcg PO DAILY #30 tabs 03/04/25 03/10/25 Rx Past Med/Surg History Problem List (Updated 03/11/25 @ 03:09 by Jeniffer Hussein DO) Confusion Hypomagnesemia (Acute) Ambulatory dysfunction (Acute) Elevated brain natriuretic peptide (BNP) level (Acute) Enterovirus infection (Acute) Rhinovirus infection (Acute) Cough (Acute) Shortness of breath (Acute) Recurrent falls (Acute) TIA (transient ischemic attack) Urinary frequency Anticoagulant long-term use Status post placement of cardiac pacemaker Atrial fibrillation with rapid ventricular response SSS (sick sinus syndrome) Mitral regurgitation Constipation Hypoxia (Acute) Hematoma of scalp (Acute) Recurrent falls (Acute) Sinus bradycardia Atrial flutter with rapid ventricular response (Acute) Asymptomatic bacteriuria Fracture of proximal phalanx of digit of left hand Paroxysmal atrial fibrillation with RVR Mild cognitive disorder Iron deficiency anemia Lung nodules Hypertension S/P coronary artery stent placement CAD (coronary atherosclerotic disease) Memory loss Paroxysmal atrial fibrillation Osteoporosis Vitamin D deficiency (Acute) Back pain, chronic (Acute) Asthma (Acute) Allergic rhinitis (Acute) Osteoarthritis of right knee Microalbuminuria Depression (Acute) Anxiety (Acute) Multinodular goiter Type 2 diabetes mellitus (Acute) NIDDM GERD (gastroesophageal reflux disease) (Acute) Graves disease (Acute) Euthyroid per 01/31/21 thyroid studies -- no medications/issues currently, under surveillance by PCP Hyperlipidemia (Acute) Moderate obstructive sleep apnea (Acute) CPAP Pulmonary nodules (Acute) Restless legs syndrome (Acute) Medical History Pericardial effusion PAD (peripheral artery disease) Hypomagnesemia CR (acute kidney injury) Meningioma Pseudoaneurysm of left femoral artery Left groin mass Abdominal distension Diaphoresis Chest discomfort Dyspnea on exertion Abnormal thyroid blood test Cough Close exposure to 2019-nCoV Conjunctivitis Close exposure to 2019-nCoV Cough productive of purulent sputum History of COVID-19 Dx 05/2020 (treated inpatient at [facility]) Asthma Well controlled Closed fracture of right distal fibula Thyroid nodule Osteoporosis Surgical History Hx of cardiac cath 06/05/2023 H/O laminectomy (~1991) cervical laminectomy. full rom S/P right knee arthroscopy History of esophagogastroduodenoscopy (EGD) History of colonoscopy History of cholecystectomy History of corneal transplant R/L Family History Father Diabetes Heart disease Hemangioma Glaucoma Asthma Mother Stroke Other No family history of adverse response to anesthesia Social History Smoking Status: Former smoker Tobacco Type: Cigarettes Age Started Using Tobacco: 14; Age Quit Using Tobacco: 30; packs per day: 1; Second Hand Exposure: No; Do You Dip or Chew Tobacco: No; Hx Alcohol Use: No Hx Substance Use: No Preferred Language: Cuban Communication Ability: Effective Visual Impairment: No Limitations Hearing Ability: Normal Lactation Specialist Required: No Beliefs That Will Affect Care: None marital status: Current Living Situation: Spouse current occupational status: retired Other Information That Helps Us Care for You: No Feels Safe at Home: Yes Safety Concerns: Feels Safe At This Time Dental Care, Regularly: Yes Seatbelt Use: always Assistive Devices: Cane, Glasses and Walker Assistive Devices Comment: cane and glasses with pt Review of Systems Review of Systems: All systems reviewed & are unremarkable except as noted in HPI & below Physical Exam Physical Exam: General: patient resting comfortably, NAD, non-toxic in appearance, AA&O x 3 Skin: Small skin tear to left knee, skin tear right arm/elbow with hematoma, dressing in place HEENT: NC/AT, PERRL, EOMI, anicteric sclera, conjunctiva without injection, external ear normal to inspection and nontender, nares patent, moist mucus membranes, dentition intact, no oropharyngeal lesions, neck supple, trachea midline, no LAD, no thyromegaly, no JVD Heart: +S1/S2, irregularly irregular, tachycardic, no m/r/g Lungs: equal air entry bilaterally, Diffuse end expiratory wheezing with rhonchi in the bilateral bases Abd: +BS, soft, NT/ND, no masses/organomegaly/ascites Ext: warm, 2+ pulses in UE/LE bilaterally, no clubbing/cyanosis or edema Neuro: nonfocal, patient AA&O x 3, speech intact, no facial droop, moving all extremities on command with equal strength 5/5 Results & Data Results & Data Vital Signs (Past 12 Hours) Vital Signs Temp Pulse Pulse Resp BP Pulse Ox O2 Del Method 03/10/25 23:05 91 Room Air 03/10/25 23:04 115 H 20 122/88 92 Room Air 03/10/25 23:00 118 H 22 133/105 H 90 Room Air 03/10/25 22:00 118 H 20 129/100 91 Room Air 03/10/25 20:30 114 H 20 116/94 91 Room Air 03/10/25 20:00 115 H 18 126/85 92 Room Air 03/10/25 19:50 126 H 25 H 92 Room Air 03/10/25 19:30 110 H 14 117/86 92 Room Air 03/10/25 19:25 115 H 03/10/25 19:17 36.6 C 120 H 18 94 Room Air Laboratory Results Laboratory Results WBC 9.08 K/ul (4.8-10.8) 03/10/25 20:17 RBC 3.92 M/uL (4.20-5.40) L 03/10/25 20:17 Hgb 11.6 g/dl (12.0-16.0) L 03/10/25 20:17 Hct 36.8 % (37.0-47.0) L 03/10/25 20:17 MCV 93.9 fL (80.0-100.0) 03/10/25 20:17 MCH 29.6 pg (25.0-34.0) 03/10/25 20:17 MCHC 31.5 g/dL (32.0-36.0) L 03/10/25 20:17 RDW Std Deviation 50.0 fL (36.4-46.3) H 03/10/25 20:17 RDW Coeff of Ambreen 14.5 % (11.5-14.5) 03/10/25 20:17 Plt Count 364 K/uL (130-400) 03/10/25 20:17 MPV 9.3 fL (9.4-12.4) L 03/10/25 20:17 Immature Gran % (Auto) 0.2 % 03/10/25 20:17 Neut % (Auto) 83.2 % 03/10/25 20:17 Lymph % (Auto) 8.7 % 03/10/25 20:17 [place] % (Auto) 5.6 % 03/10/25 20:17 Eos % (Auto) 1.9 % 03/10/25 20:17 Baso % (Auto) 0.4 % 03/10/25 20:17 Neut # (Auto) 7.55 K/uL (1.40-6.50) H 03/10/25 20:17 Lymph # (Auto) 0.79 K/uL (1.20-3.40) L 03/10/25 20:17 [place] # (Auto) 0.51 K/uL (0.11-0.59) 03/10/25 20:17 Eos # (Auto) 0.17 K/uL (0.00-0.50) 03/10/25 20:17 Baso # (Auto) 0.04 K/uL (0.00-0.20) 03/10/25 20:17 Immature Gran # (Auto) 0.02 K/uL (0.01-0.20) 03/10/25 20:17 PT 11.9 Seconds (9.0-12.0) 03/10/25 20:17 INR 1.1 (0.9-1.1) 03/10/25 20:17 Sodium 138 mmol/L (136-145) 03/10/25 20:17 Potassium 3.7 mmol/L (3.5-5.1) 03/10/25 20:17 Chloride 103 mmol/L (98-107) 03/10/25 20:17 Carbon Dioxide 29 mmol/L (21-32) 03/10/25 20:17 Anion Gap 6 (3-11) 03/10/25 20:17 BUN 22 mg/dl (6-23) 03/10/25 20:17 Creatinine 1.03 mg/dl (0.6-1.2) 03/10/25 20:17 Est Cr Clr Drug Dosing 42.3 ml/min 03/10/25 20:17 eGFR 55.65 03/10/25 20:17 BUN/Creatinine Ratio 21.4 (10-20) H 03/10/25 20:17 Glucose 133 mg/dl (70-99(Fasting)) H 03/10/25 20:17 POC Glucose 126 mg/dl (70-99) H 03/10/25 19:41 Lactate 1.1 mmol/L (0.4-2.0) 03/10/25 20:37 Calcium 9.6 mg/dl (8.6-10.3) 03/10/25 20:17 Magnesium 1.2 mg/dl (1.7-2.4) L 03/10/25 20:17 Total Bilirubin 0.6 mg/dl (0.2-1.0) 03/10/25 20:17 AST 13 U/L (13-39) 03/10/25 20:17 ALT 7 U/L (7-52) 03/10/25 20:17 Alkaline Phosphatase 33 U/L (34-104) L 03/10/25 20:17 Troponin I High Sens 5.7 pg/ml (0-14) 03/10/25 20:17 B-Natriuretic Peptide 880 pg/ml (0-100) H 03/10/25 20:17 Total Protein 7.7 gm/dl (6.0-8.3) 03/10/25 20:17 Albumin 4.5 gm/dl (3.4-5.0) 03/10/25 20:17 Globulin 3.2 gm/dl (2.5-4.0) 03/10/25 20:17 Albumin/Globulin Ratio 1.4 (0.9-2) 03/10/25 20:17 Procalcitonin < 0.02 ng/ml (0-0.5) 03/10/25 20:17 TSH 6.539 uIu/ml (0.300-4.500) H 03/10/25 20:17 Free T4 0.84 ng/dl (0.61-1.60) 03/10/25 20:17 Urine Color Yellow 03/10/25:57 Urine Appearance Clear (Clear) 03/10/25: Urine pH 7.0 (4.5-7.5) 03/10/25:57 Ur Specific [place] 1.017 (1.000-1.030) 03/10/25 22:57 Urine Protein Trace (Negative) H 03/10/25:57 Urine Glucose (UA) Negative (Negative) 03/10/25: Urine Ketones Negative (Negative) 03/10/25: Urine Blood Negative (Negative) 03/10/25: Urine Nitrite Negative (Negative) 03/10/25: Urine Bilirubin Negative (Negative) 03/10/25: Urine Urobilinogen Negative (Negative) 03/10/25 22:57 Ur Leukocyte Esterase 1+ (Negative) H 03/10/25 22:57 Urine WBC (Auto) 0-5 /hpf (0-5) 03/10/25 22:57 Urine RBC (Auto) 0-2 /hpf (0-2) 03/10/25 22:57 U Hyaline Cast (Auto) 3-5 /lpf (0-2) H 03/10/25 22:57 U Epithel Cells (Auto) 0-2 /hpf (0-2) 03/10/25 22:57 Urine Bacteria (Auto) None Seen (None Seen) 03/10/25 22:57 Adenovirus (PCR) Not Detected (NotDetected) 03/10/25 19:49 B. pertussis DNA (PCR) Not Detected (NotDetected) 03/10/25 19:49 B.parapertussis DNA PCR Not Detected (NotDetected) 03/10/25 19:49 C. pneumoniae DNA (PCR) Not Detected (NotDetected) 03/10/25 19:49 Coronavirus OC43 (PCR) Not Detected (NotDetected) 03/10/25 19:49 Coronavirus HKU1 (PCR) Not Detected (NotDetected) 03/10/25 19:49 Coronavirus 229E (PCR) Not Detected (NotDetected) 03/10/25 19:49 SARS-CoV-2 (PCR) Not Detected (NotDetected) 03/10/25 19:49 Coronavirus NL63 (PCR) Not Detected (NotDetected) 03/10/25 19:49 Human Metapneumovir PCR Not Detected (NotDetected) 03/10/25 19:49 Influenza Type A (PCR) Not Detected (NotDetected) 03/10/25 19:49 Influenza Type B (PCR) Not Detected (NotDetected) 03/10/25 19:49 M. pneumoniae (PCR) Not Detected (NotDetected) 03/10/25 19:49 Parainfluenza 1 (PCR) Not Detected (NotDetected) 03/10/25 19:49 Parainfluenza 2 (PCR) Not Detected (NotDetected) 03/10/25 19:49 Parainfluenza 3 (PCR) Not Detected (NotDetected) 03/10/25 19:49 Parainfluenza 4 (PCR) Not Detected (NotDetected) 03/10/25 19:49 RSV (PCR) Not Detected (NotDetected) 03/10/25 19:49 Entero/Rhino (PCR) DETECTED (NotDetected) A 03/10/25 19:[address] 03/10/25 19:31 Exam(s): CT C SPINE EXAM: CT Cervical Spine Without Intravenous Contrast CLINICAL HISTORY: Reason for exam: fall from standing; on Eliquis. TECHNIQUE: Axial computed tomography images of the cervical spine without intravenous contrast. CTDI is 37.22 mGy and DLP is 1000.2 mGy-cm. Automated exposure control was utilized for the study. A dose lowering technique was utilized adhering to the principles of ALARA. COMPARISON: No relevant prior studies available. FINDINGS: Vertebrae: Mild narrowing and osteophytosis at the atlantodental joint. The odontoid process is intact. Mild to moderate multilevel degenerative disc disease and facet arthrosis throughout the cervical spine. There is 2 mm anterolisthesis of C2 on C3 due to degenerative facet arthrosis. No acute fracture or traumatic subluxation is seen. Probable previous left hemilaminectomy at C5. Soft tissues: Unremarkable. Vasculature: Severe calcification of the carotid bifurcation bilaterally. DISCS/SPINAL CANAL/NEURAL FORAMINA: C2-C3: Mild degenerative disc disease. No stenosis. C3-C4: Moderate degenerative disc disease. 4 mm posterior left side disc herniation narrowing the thecal sac to 6 mm and causing severe left neural foraminal narrowing. C4-C5: Mild degenerative disc disease. Broad-based posterior 2-3 mm disc bulge and/or disc marginal osteophyte formation narrowing the thecal sac to 7 mm. There is severe bilateral neural foraminal narrowing. C5-C6: Mild degenerative disc disease. 2 mm broad-based posterior disc bulge narrowing the thecal sac to 8 mm. C6-C7: Mild degenerative disc disease. Mild spinal stenosis measuring 9 mm. C7-T1: Mild degenerative disc disease. No stenosis. IMPRESSION: Moderate degenerative changes throughout the cervical spine as described above. No acute fracture or traumatic subluxation. There is multilevel spinal stenosis, greatest at C3-4. Electronically signed by: Santos Hussein MD 03/10/25 21:56 PM Chest X-Ray 03/10/25 19:31 Exam(s): XR CXR 1 VIEW EXAM: XR Chest, 1 View CLINICAL HISTORY: Reason for exam: weakness; cough. TECHNIQUE: Frontal view of the chest. COMPARISON: January 26, 2025 FINDINGS: Lungs: Slightly prominent interstitial markings in the lungs, exaggerated by body habitus and portable technique. No overt edema or acute focal infiltrate is identified. Pleural space: Unremarkable. No pneumothorax. Heart: Unremarkable. No cardiomegaly. Mediastinum: Unremarkable. Normal mediastinal contour. Bones/joints: Unremarkable. No acute fracture. Tubes, lines and devices: There is a pacing device in the left with the 20 to the right side of the heart. The cardiac silhouette is moderately enlarged. Probable mitral calcification. IMPRESSION: 1. There is a pacing device in the left with the 20 to the right side of the heart. The cardiac silhouette is moderately enlarged. Probable mitral calcification. 2. Slightly prominent interstitial markings in the lungs, exaggerated by body habitus and portable technique. No overt edema or acute focal infiltrate is identified. Electronically signed by: Santos Hussein MD 03/10/25 21:[address] 03/10/25 19:31 Exam(s): CT HEAD Without Contrast EXAM: CT Head Without Intravenous Contrast CLINICAL HISTORY: Reason for exam: fall from standing; on Eliquis. TECHNIQUE: Axial computed tomography images of the head/brain without intravenous contrast. CTDI is 37.22 mGy and DLP is 1000.2 mGy-cm. Automated exposure control was utilized for the study. A dose lowering technique was utilized adhering to the principles of ALARA. COMPARISON: January 20, 2025 FINDINGS: Brain: Calcified 1.2 cm extra-axial nodule in the left sylvian fissure consistent with old meningioma, unchanged. No significant mass-effect upon the brain. Mild cerebral atrophy and periventricular white matter low density consistent with chronic small vessel disease and/or senescent changes, unchanged. No acute large vessel infarct or intracranial hemorrhage is seen. Ventricles: Unremarkable. No ventriculomegaly. Bones/joints: Mild hyperostosis of the skull. No acute fracture. Soft tissues: Unremarkable. Sinuses: Unremarkable as visualized. No acute sinusitis. Mastoid air cells: Unremarkable as visualized. No mastoid effusion. IMPRESSION: Mild cerebral atrophy and periventricular white matter low density consistent with chronic small vessel disease and/or senescent changes, unchanged. No acute large vessel infarct or intracranial hemorrhage is seen. Electronically signed by: Santos Hussein MD 03/10/25 21:48 PM PG Care Time/CCT Total # of Minutes Spent Total Time Spent with Patient: Total time spent is greater than 50% in coordination of care (as documented) at patient's floor/unit and/or counseling patient: Coding Level of Care Code 52255 INT INP/OBS CARE 3/75MIN Diagnoses Ambulatory dysfunction R26.2 Confusion R41.0 Enterovirus infection B34.1 Asthma J45.909 Atrial fibrillation with rapid ventricular response I48.91 Hypertension I10 CAD (coronary atherosclerotic disease) I25.10 Type 2 diabetes mellitus E11.9
[2025-03-11] MEDS: METOPROLOL SUCC 50MG EXT REL TAB PO STA (00:14)
[2025-03-11] MEDS: PRAMIPEXOLE DIHYDROCHLO 0.25 MG TAB PO STA (00:15)
[2025-03-11] MEDS: VENLAFAXINE HCL XR 150 MG CAPXR PO STA (00:15)
[2025-03-11] MEDS: APIXABAN 5 MG TABLET PO ONE (00:15)
[2025-03-11] MEDS ORDERED: LORazepam 0.5 MG TAB PO PRN (01:36)
[2025-03-11] MEDS ORDERED: ONDANSETRON INJ 2 MG/ML 2 ML VIAL IV PRN (01:36)
[2025-03-11] MEDS ORDERED: DOCUSATE SODIUM 100 MG CAP PO PRN (01:36)
[2025-03-11] MEDS ORDERED: LEVALBUTEROL HCL 0.63 MG/3 ML NEB NEB PRN ×2 (01:36→18:58)
[2025-03-11] MEDS: MAGNESIUM SULFATE / D5W 1 GM/100 ML BAG IV SCH (01:57)
[2025-03-11] MEDS: LACTATED RINGER'S 1,000 ML IV SCH (01:58)
[2025-03-11] MEDS: ALBUT/IPRATROP 3MG/0.5MG NEB 3 ML VIAL NEB SCH (02:07)
[2025-03-11] MEDS: LEVOTHYROXINE SODIUM 25 MCG TABLET PO SCH (05:47)
[2025-03-11 07:51] LABS: Hematocrit (blood only) 32.2 % (37.0-47.0); Hemoglobin 10.3 g/dl (12.0-16.0); Mean Corpuscular Hemoglobin 30.2 pg (25.0-34.0); Mean Corpuscular Volume 94.4 fL (80.0-100.0); Mean Platelet Volume 9.2 fL (9.4-12.4); Platelet Count 316 K/uL (130-400); RDW Coefficient of Variation 14.6 % (11.5-14.5); RDW Standard Deviation 50.1 fL (36.4-46.3); Red Blood Count 3.41 M/uL (4.20-5.40); White Blood Count 7.53 K/ul (4.8-10.8)
[2025-03-11] MEDS: UMECLIDINIUM/VILANTEROL 62.5/25MCG 7 PUFFS/INHALER INH SCH (08:09)
[2025-03-11] MEDS: FLUTICASONE FUROATE 200MCG 14 PUFFS/INHALER INH SCH (08:09)
[2025-03-11] MEDS: LOSARTAN POTASSIUM 50 MG TAB PO SCH (08:10)
[2025-03-11] MEDS: METOPROLOL SUCC 50MG EXT REL TAB PO SCH (08:10)
[2025-03-11] MEDS: DONEPEZIL HCL 5 MG TAB PO SCH (08:10)
[2025-03-11] MEDS: APIXABAN 5 MG TABLET PO SCH (08:10)
[2025-03-11] MEDS: guaiFENesin 600 MG TABCR PO SCH (08:10)
[2025-03-11] MEDS: ROSUVASTATIN CALCIUM 20 MG TAB PO SCH (08:10)
[2025-03-11] MEDS: ISOSORBIDE MONO EXTENDED REL 30 MG TABCR PO SCH (08:10)
[2025-03-11] MEDS: LORATADINE 10 MG TAB PO SCH (08:10)
[2025-03-11] MEDS: CLOPIDOGREL BISULFATE 75 MG TAB PO SCH (08:11)
[2025-03-11] MEDS: PANTOprazole 40 MG TAB PO SCH (08:11)
[2025-03-11] MEDS: buPROPion XL 300 MG TABCR PO SCH (08:11)
[2025-03-11 08:15] LABS: BUN Creatinine Ratio 17.2 (10-20); Calcium 9.1 mg/dl (8.6-10.3); Magnesium 2.1 mg/dl (1.7-2.4); Potassium 3.6 mmol/L (3.5-5.1)
[2025-03-11] MEDS ORDERED: NON-FORMULARY MEDICATION (Fluticasone-Umeclidin-Vilanter [Trelegy Ellipta] 200-62.5-25 mcg INH SCH (09:00)
--- NOTE | 2025-03-11 09:12 | Electrocardiogram Report ---
Test Reason : Blood Pressure : */* mmHG Vent. Rate : 105 BPM Atrial Rate : * BPM P-R Int : * ms QRS Dur : 94 ms QT Int : 364 ms P-R-T Axes : * -49 39 degrees QTcB Int : 481 ms Atrial fibrillation with rapid ventricular response Left axis deviation Incomplete right bundle branch block Abnormal ECG When compared with ECG of 25-Jan-2025 15:02, Atrial fibrillation has replaced Sinus rhythm Vent. rate has increased by 37 bpm Nonspecific T wave abnormality no longer evident in Anterior leads Confirmed by Zohaib Singh ([id number]) on 03/11/2025 9:11:49 AM Referred By: REFERRED SELF Confirmed By: Zohaib Singh
[2025-03-11 10:11] LABS: Appearance Urine Clear (Clear); Bilirubin Urine Negative (Negative); Blood Urine Negative (Negative); Color Urine Yellow; Glucose Urine UA Negative (Negative); Ketones Urine Negative (Negative); Leukocyte Esterase Urine Negative (Negative); Nitrite Urine Negative (Negative); Protein Urine Negative (Negative); Specific Gravity Urine 1.009 (1.000-1.030); Urobilinogen Urine Negative (Negative); pH Urine 7.5 (4.5-7.5)
--- NOTE | 2025-03-11 11:49 | Hospitalist Progress Note ---
Date of Service March 11, 2025 Assessment & Plan (1) Ambulatory dysfunction: (2) Confusion: (3) Enterovirus infection: (4) Asthma: (5) Atrial fibrillation with rapid ventricular response: (6) Hypertension: (7) CAD (coronary atherosclerotic disease): (8) Type 2 diabetes mellitus: Plan 79-year-old female with history of atrial fibrillation on Eliquis anticoagulation, hypertension, CAD, diabetes presenting with progressive confusion and ambulatory dysfunction, acutely worsening over the last 3 to 4 days. Patient with 4 falls prior to arrival with minor head trauma. Found to have enterovirus infection. #Ambulatory dysfunction #Acute metabolic encephalopathy, concern for underlying dementia patient with functional decline over the last month, acutely worsening over the last 3 to 4 days. Suspect enterovirus infection contributing to her acute decline. Patient did sustain 4 falls prior to arrival resulting in mild head trauma. She does have a cane and walker and uses them both occasionally. CT of the head with mild cerebral atrophy and periventricular white matter changes consistent with chronic small vessel disease. Unremarkable ventricles. -B12 is 633 on March 04, 2025 -TSH 6.539, free T4 0.84: Patient was started on levothyroxine 25 mcg p.o. daily approximately a week ago -Patient was started on Aricept 5 mg p.o. daily by her PCP -Outpatient carotid Dopplers from 03/08/2025 showed bilateral carotid atherosclerotic disease with calcified plaque seen mainly at the carotid bulb causing less than 50% stenosis and radiology recommended CTA/MRA for detailed luminal assessment. Check MRI/MRA of the head and neck: PCP had ordered this for outpatient which was scheduled for 03/14/2025: Family requesting to be done inpatient -Urinalysis is negative for infection - Delirium precautions - Check orthostatic vital signs #Enterovirus infection #Asthma patient reports some worsening cough. She is wheezing diffusely on physical exam. Chest x-ray with no evidence of pneumonia Tylenol as needed Flutter valve, incentive spirometry - Change DuoNebs to Xopenex nebs - Continue Singulair Continue home umeclidinium and vilanterol, fluticasone #Atrial fibrillation with RVR #Coronary artery disease status post RCA BERNARDO x 2 in May 2023 #History of tachycardia/bradycardia syndrome status post pacemaker in January 2025 #Essential hypertension patient recently had pacemaker placed in January 2025 for tachybradycardia syndrome. She has followed up with cardiology and is overall doing well. She is compliant with her metoprolol as well as her apixaban Continue apixaban 5 mg p.o. twice daily Continue metoprolol 100 mg p.o. twice daily - Continue Plavix and statin -Continue Imdur and losartan with hold parameters for orthostatic vital signs - Cardiology consulted for A-fib with RVR #Hypothyroidism -TSH 6.539, free T4 0.84 - Increase levothyroxine from 25 to 50 mcg p.o. daily # Anxiety and depression Continue venlafaxine 150 mg Continue bupropion 300 mg p.o. every morning Continue Ativan 0.5 mg p.o. 3 times daily as needed for anxiety or restless legs. #Restless leg syndrome #Continue Mirapex 0.25 mg every afternoon #GERD Continue Protonix 40 mg p.o. every morning #Hypothyroidism Continue Synthroid CODE STATUS: DNR/DNI DVT prophylaxis: Patient on apixaban Discharge planning based on PT/OT recommendations, cardiology consult and recommendations, MRI/MRI of the brain clinical improvement. Care plan discussed with patient, nursing staff and son updated at bedside with patient's permission Admission and Anticipated Discharge Date Admission Date: March 10, 2025 Subjective Patient seen and examined H&P reviewed Labs reviewed Radiology reviewed Telemetry reviewed: A-fib with RVR Patient's son and grandson at bedside Patient denies any headache, dizziness, lightheadedness, chest pain or shortness of breath She denies any fever, chills or urinary symptoms She does admit to getting forgetful which has been noticed by her family Patient states she has a cane and walker at home and she does not use them and has been falling She lives at home with her Physical Exam Physical Exam: General: No acute distress Psych: Awake and alert, oriented to place and person HEENT: Anicteric sclera, moist oral mucosa CVS: Irregular rate and rhythm, pacemaker palpable Lungs: Bilateral air entry, no wheezing noted Abdomen: Soft, nontender, no rebound, no guarding Ext: No lower extremity edema, no calf tenderness Neuro: No focal motor deficits noted Results & Data Results & Data Vital Signs (Past 12 Hours) Vital Signs Temp Pulse Pulse Resp BP Pulse Ox O2 Del Method 03/11/25 11:24 109 H 18 93 Room Air 03/11/25 10:53 36.7 C 20 95 Room Air 03/11/25 07:46 36.6 C 100 H 18 126/84 93 Room Air 03/11/25 07:36 114 H 18 90 Room Air 03/11/25 07:22 Room Air 03/11/25 06:13 100 H 03/11/25 03:49 36.2 C L 114 H 20 120/79 93 CPAP 03/11/25 02:15 22 91 03/11/25 02:10 18 88 L Room Air 03/11/25 02:08 Room Air 03/11/25 02:08 36.9 C 120 H 18 143/61 H 93 Room Air 03/11/25 01:40 105 H 03/11/25 01:36 36.9 C 120 H 18 143/81 H 93 Room Air 03/11/25 01:10 Room Air 03/11/25 01:00 105 H 20 138/95 92 Room Air 03/11/25 00:00 112 H 18 111/92 91 Room Air O2 Flow Rate 03/11/25 11:24 03/11/25 10:53 03/11/25 07:46 03/11/25 07:36 03/11/25 07:22 03/11/25 06:13 03/11/25 03:49 03/11/25 02:15 2 03/11/25 02:10 03/11/25 02:08 03/11/25 02:08 03/11/25 01:40 03/11/25 01:36 03/11/25 01:10 03/11/25 01:00 03/11/25 00:00 Laboratory Results Laboratory Results - last 24 hr 03/10/25 03/10/25 03/10/25 19:41 19:49 20:17 WBC 9.08 RBC 3.92 L Hgb 11.6 L Hct 36.8 L MCV 93.9 MCH 29.6 MCHC 31.5 L RDW Std Deviation 50.0 H RDW Coeff of Ambreen 14.5 Plt Count 364 MPV 9.3 L Immature Gran % (Auto) 0.2 Neut % (Auto) 83.2 Lymph % (Auto) 8.7 Benson % (Auto) 5.6 Eos % (Auto) 1.9 Baso % (Auto) 0.4 Neut # (Auto) 7.55 H Lymph # (Auto) 0.79 L Benson # (Auto) 0.51 Eos # (Auto) 0.17 Baso # (Auto) 0.04 Immature Gran # (Auto) 0.02 PT 11.9 INR 1.1 Sodium 138 Potassium 3.7 Chloride 103 Carbon Dioxide 29 Anion Gap 6 BUN 22 Creatinine 1.03 Est Cr Clr Drug Dosing 42.3 eGFR 55.65 BUN/Creatinine Ratio 21.4 H Glucose 133 H POC Glucose 126 H Estimat Average Glucose Hemoglobin A1c Lactate Calcium 9.6 Magnesium 1.2 L Total Bilirubin 0.6 AST 13 ALT 7 Alkaline Phosphatase 33 L Troponin I High Sens 5.7 B-Natriuretic Peptide 880 H Total Protein 7.7 Albumin 4.5 Globulin 3.2 Albumin/Globulin Ratio 1.4 Procalcitonin < 0.02 TSH 6.539 H Free T4 0.84 Urine Color Urine Appearance Urine pH Ur Specific Taft Urine Protein Urine Glucose (UA) Urine Ketones Urine Blood Urine Nitrite Urine Bilirubin Urine Urobilinogen Ur Leukocyte Esterase Urine WBC (Auto) Urine RBC (Auto) U Hyaline Cast (Auto) U Epithel Cells (Auto) Urine Bacteria (Auto) Adenovirus (PCR) Not Detected B. pertussis DNA (PCR) Not Detected B.parapertussis DNA PCR Not Detected C. pneumoniae DNA (PCR) Not Detected Coronavirus OC43 (PCR) Not Detected Coronavirus HKU1 (PCR) Not Detected Coronavirus 229E (PCR) Not Detected SARS-CoV-2 (PCR) Not Detected Coronavirus NL63 (PCR) Not Detected Human Metapneumovir PCR Not Detected Influenza Type A (PCR) Not Detected Influenza Type B (PCR) Not Detected M. pneumoniae (PCR) Not Detected Parainfluenza 1 (PCR) Not Detected Parainfluenza 2 (PCR) Not Detected Parainfluenza 3 (PCR) Not Detected Parainfluenza 4 (PCR) Not Detected RSV (PCR) Not Detected Entero/Rhino (PCR) DETECTED A 03/10/25 03/10/25 03/11/25 20:37 22:57 07:28 WBC 7.53 RBC 3.41 L Hgb 10.3 L Hct 32.2 L MCV 94.4 MCH 30.2 MCHC 32.0 RDW Std Deviation 50.1 H RDW Coeff of Ambreen 14.6 H Plt Count 316 MPV 9.2 L Immature Gran % (Auto) Neut % (Auto) Lymph % (Auto) Benson % (Auto) Eos % (Auto) Baso % (Auto) Neut # (Auto) Lymph # (Auto) Benson # (Auto) Eos # (Auto) Baso # (Auto) Immature Gran # (Auto) PT INR Sodium 138 Potassium 3.6 Chloride 103 Carbon Dioxide 30 Anion Gap 5 BUN 15 Creatinine 0.87 Est Cr Clr Drug Dosing 46.0 eGFR 68.15 BUN/Creatinine Ratio 17.2 Glucose 126 H POC Glucose Estimat Average Glucose Pending Hemoglobin A1c Pending Lactate 1.1 Calcium 9.1 Magnesium 2.1 Total Bilirubin AST ALT Alkaline Phosphatase Troponin I High Sens B-Natriuretic Peptide Total Protein Albumin Globulin Albumin/Globulin Ratio Procalcitonin TSH Free T4 Urine Color Yellow Urine Appearance Clear Urine pH 7.0 Ur Specific Taft 1.017 Urine Protein Trace H Urine Glucose (UA) Negative Urine Ketones Negative Urine Blood Negative Urine Nitrite Negative Urine Bilirubin Negative Urine Urobilinogen Negative Ur Leukocyte Esterase 1+ H Urine WBC (Auto) 0-5 Urine RBC (Auto) 0-2 U Hyaline Cast (Auto) 3-5 H U Epithel Cells (Auto) 0-2 Urine Bacteria (Auto) None Seen Adenovirus (PCR) B. pertussis DNA (PCR) B.parapertussis DNA PCR C. pneumoniae DNA (PCR) Coronavirus OC43 (PCR) Coronavirus HKU1 (PCR) Coronavirus 229E (PCR) SARS-CoV-2 (PCR) Coronavirus NL63 (PCR) Human Metapneumovir PCR Influenza Type A (PCR) Influenza Type B (PCR) M. pneumoniae (PCR) Parainfluenza 1 (PCR) Parainfluenza 2 (PCR) Parainfluenza 3 (PCR) Parainfluenza 4 (PCR) RSV (PCR) Entero/Rhino (PCR) 03/11/25 Unknown WBC RBC Hgb Hct MCV MCH MCHC RDW Std Deviation RDW Coeff of Ambreen Plt Count MPV Immature Gran % (Auto) Neut % (Auto) Lymph % (Auto) Benson % (Auto) Eos % (Auto) Baso % (Auto) Neut # (Auto) Lymph # (Auto) Benson # (Auto) Eos # (Auto) Baso # (Auto) Immature Gran # (Auto) PT INR Sodium Potassium Chloride Carbon Dioxide Anion Gap BUN Creatinine Est Cr Clr Drug Dosing eGFR BUN/Creatinine Ratio Glucose POC Glucose Estimat Average Glucose Hemoglobin A1c Lactate Calcium Magnesium Total Bilirubin AST ALT Alkaline Phosphatase Troponin I High Sens B-Natriuretic Peptide Total Protein Albumin Globulin Albumin/Globulin Ratio Procalcitonin TSH Free T4 Urine Color Yellow Urine Appearance Clear Urine pH 7.5 Ur Specific Taft 1.009 Urine Protein Negative Urine Glucose (UA) Negative Urine Ketones Negative Urine Blood Negative Urine Nitrite Negative Urine Bilirubin Negative Urine Urobilinogen Negative Ur Leukocyte Esterase Negative Urine WBC (Auto) Urine RBC (Auto) U Hyaline Cast (Auto) U Epithel Cells (Auto) Urine Bacteria (Auto) Adenovirus (PCR) B. pertussis DNA (PCR) B.parapertussis DNA PCR C. pneumoniae DNA (PCR) Coronavirus OC43 (PCR) Coronavirus HKU1 (PCR) Coronavirus 229E (PCR) SARS-CoV-2 (PCR) Coronavirus NL63 (PCR) Human Metapneumovir PCR Influenza Type A (PCR) Influenza Type B (PCR) M. pneumoniae (PCR) Parainfluenza 1 (PCR) Parainfluenza 2 (PCR) Parainfluenza 3 (PCR) Parainfluenza 4 (PCR) RSV (PCR) Entero/Rhino (PCR) Diagnostic Findings Cervical Spine CT 03/10/25 19:31 Exam(s): CT C SPINE EXAM: CT Cervical Spine Without Intravenous Contrast CLINICAL HISTORY: Reason for exam: fall from standing; on Eliquis. TECHNIQUE: Axial computed tomography images of the cervical spine without intravenous contrast. CTDI is 37.22 mGy and DLP is 1000.2 mGy-cm. Automated exposure control was utilized for the study. A dose lowering technique was utilized adhering to the principles of ALARA. COMPARISON: No relevant prior studies available. FINDINGS: Vertebrae: Mild narrowing and osteophytosis at the atlantodental joint. The odontoid process is intact. Mild to moderate multilevel degenerative disc disease and facet arthrosis throughout the cervical spine. There is 2 mm anterolisthesis of C2 on C3 due to degenerative facet arthrosis. No acute fracture or traumatic subluxation is seen. Probable previous left hemilaminectomy at C5. Soft tissues: Unremarkable. Vasculature: Severe calcification of the carotid bifurcation bilaterally. DISCS/SPINAL CANAL/NEURAL FORAMINA: C2-C3: Mild degenerative disc disease. No stenosis. C3-C4: Moderate degenerative disc disease. 4 mm posterior left side disc herniation narrowing the thecal sac to 6 mm and causing severe left neural foraminal narrowing. C4-C5: Mild degenerative disc disease. Broad-based posterior 2-3 mm disc bulge and/or disc marginal osteophyte formation narrowing the thecal sac to 7 mm. There is severe bilateral neural foraminal narrowing. C5-C6: Mild degenerative disc disease. 2 mm broad-based posterior disc bulge narrowing the thecal sac to 8 mm. C6-C7: Mild degenerative disc disease. Mild spinal stenosis measuring 9 mm. C7-T1: Mild degenerative disc disease. No stenosis. IMPRESSION: Moderate degenerative changes throughout the cervical spine as described above. No acute fracture or traumatic subluxation. There is multilevel spinal stenosis, greatest at C3-4. Electronically signed by: Santos Hussein MD 03/10/25 21:56 PM Chest X-Ray 03/10/25 19:31 Exam(s): XR CXR 1 VIEW EXAM: XR Chest, 1 View CLINICAL HISTORY: Reason for exam: weakness; cough. TECHNIQUE: Frontal view of the chest. COMPARISON: January 26, 2025 FINDINGS: Lungs: Slightly prominent interstitial markings in the lungs, exaggerated by body habitus and portable technique. No overt edema or acute focal infiltrate is identified. Pleural space: Unremarkable. No pneumothorax. Heart: Unremarkable. No cardiomegaly. Mediastinum: Unremarkable. Normal mediastinal contour. Bones/joints: Unremarkable. No acute fracture. Tubes, lines and devices: There is a pacing device in the left with the 20 to the right side of the heart. The cardiac silhouette is moderately enlarged. Probable mitral calcification. IMPRESSION: 1. There is a pacing device in the left with the 20 to the right side of the heart. The cardiac silhouette is moderately enlarged. Probable mitral calcification. 2. Slightly prominent interstitial markings in the lungs, exaggerated by body habitus and portable technique. No overt edema or acute focal infiltrate is identified. Electronically signed by: Santos Hussein MD 03/10/25 21:[address] 03/10/25 19:31 Exam(s): CT HEAD Without Contrast EXAM: CT Head Without Intravenous Contrast CLINICAL HISTORY: Reason for exam: fall from standing; on Eliquis. TECHNIQUE: Axial computed tomography images of the head/brain without intravenous contrast. CTDI is 37.22 mGy and DLP is 1000.2 mGy-cm. Automated exposure control was utilized for the study. A dose lowering technique was utilized adhering to the principles of ALARA. COMPARISON: January 20, 2025 FINDINGS: Brain: Calcified 1.2 cm extra-axial nodule in the left sylvian fissure consistent with old meningioma, unchanged. No significant mass-effect upon the brain. Mild cerebral atrophy and periventricular white matter low density consistent with chronic small vessel disease and/or senescent changes, unchanged. No acute large vessel infarct or intracranial hemorrhage is seen. Ventricles: Unremarkable. No ventriculomegaly. Bones/joints: Mild hyperostosis of the skull. No acute fracture. Soft tissues: Unremarkable. Sinuses: Unremarkable as visualized. No acute sinusitis. Mastoid air cells: Unremarkable as visualized. No mastoid effusion. IMPRESSION: Mild cerebral atrophy and periventricular white matter low density consistent with chronic small vessel disease and/or senescent changes, unchanged. No acute large vessel infarct or intracranial hemorrhage is seen. Electronically signed by: Santos Hussein MD 03/10/25 21:48 PM PG Care Time/CCT Total # of Minutes Spent Total Time Spent with Patient: Total time spent is greater than 50% in coordination of care (as documented) at patient's floor/unit and/or counseling patient: Coding Level of Care Code 15180 SUB INP/OBS CARE 3/50MIN Diagnoses Ambulatory dysfunction R26.2 Confusion R41.0 Enterovirus infection B34.1 Asthma J45.909 Atrial fibrillation with rapid ventricular response I48.91 Hypertension I10 CAD (coronary atherosclerotic disease) I25.10 Type 2 diabetes mellitus E11.9
[2025-03-11 11:58] LABS: Estimated Average Glucose 143 mg/dl; Hemoglobin A1C 6.6 % (4.5-5.6)
[2025-03-11] MEDS: GADOBUTROL 30ML VIAL IV ONE (14:35)
--- NOTE | 2025-03-11 14:59 | Magnetic Resonance Report ---
MRA OF THE INTRACRANIAL CIRCULATION WITHOUT CONTRAST CLINICAL HISTORY: falls, gait abnormalities COMPARISON STUDY: MRI of the brain February 14, 2023. Head CT March 10, 2023. CTA of the head October [id number]. TECHNIQUE: Utilizing a 1.5 Lakeisha magnet and 3-D [id number] technique, unenhanced MRA of the intra cranial circulation was obtained. FINDINGS: Please note that the MRI of the brain will be reported separately. This exam is mildly comp romised by artifact. The bilateral M1, M2, A1 and A2 segments are patent. No intracranial aneurysm is identified although sensitivity for detection of small aneurysms is diminished on this exam. The pos terior circulation is intact. No intracranial vessel occlusion is identified. IMPRESSION: Unremarkable MRA of the head. Mild motion artifact. ACT 112: Negative or not required by law. Electronically signed by: Gorge Penny M.D. 03/11/2025 2:57 PM
--- NOTE | 2025-03-11 15:01 | Magnetic Resonance Report ---
MR brain wo/w con CLINICAL HISTORY: falls, gait abnormalities, TIA VS CVA COMPARISON STUDY: Head CT yesterday and MRI of 02/14/2023 FINDINGS: There is motion artifact. No restricted diffusion seen to suggest acute infarction. There i s stable mild prominence of the ventricles mildly out of proportion to the sulci, cerebral atrophy ve rsus mild normal pressure hydrocephalus. No mass effect or midline shift. There is stable mild foci o f increased FLAIR signal intensity in the periventricular white matter which is nonspecific but usual ly represents chronic small vessel ischemic change. Stable small calcified meningioma adjacent to the left sylvian fissure. No abnormal enhancement seen in the brain. IMPRESSION: No evidence of acute infarction. Otherwise as described. ACT 112: Negative or not required by law. Electronically signed by: Pranav Stephenson M.D. 03/11/2025 3:00 PM
--- NOTE | 2025-03-11 15:06 | Magnetic Resonance Report ---
NECK MRA HISTORY: falls, gait abnormalities, abnormal carotid US TECHNIQUE: [id number] and gadolinium-enhanced MRA of the neck was performed both before and after the intravenous administration of contrast. All measurements were calculated based on NASCET criteri a. COMPARISON STUDY: Ultrasound of 03/08/2025 FINDINGS: There is motion artifact. There is narrowing of 50-70% proximal right internal carotid odell ry. There is possible mild narrowing of less than 50% proximal left internal carotid artery. No other significant narrowing or occlusion seen at the common or internal carotid or vertebral arteries bila terally. IMPRESSION: 1. 50-70% narrowing proximal right ICA. 2. Possible mild narrowing proximal left ICA. ACT 112: Negative or not required by law. Electronically signed by: Pranav Stephenson M.D. 03/11/2025 3:05 PM
--- NOTE | 2025-03-11 15:28 | Cardiology Consultation ---
Date of Consultation March 11, 2025 Assessment & Plan (1) Atrial fibrillation with rapid ventricular response: -Ventricular response remains elevated despite metoprolol succinate 100 Mg twice daily -Would add digoxin 0.25 Mg IV x 1 now, then repeat in 4 hours if necessary. -Could consider use of intravenous amiodarone for rate control. -Continue Eliquis as you are. (2) CAD (coronary atherosclerotic disease): -s/p RCA BERNARDO x 2, May 2023 -Continue medical management. 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 History of Present Illness Attending Physician: Ry Milligan MD History of Present Illness Mrs. James is a 79-year-old female admitted yesterday with confusion and ambulatory dysfunction. The patient was found to be in atrial fibrillation with a rapid ventricular spots, and therefore, this consultation was ordered. Of note, the patient typically follows with Drs. Singh in [facility] in the outpatient setting. The patient was in her usual state of health until approximately 3 to 4 days prior to presentation. She was noted to be confused and had difficulty with ambulation. She suffered 4 different falls on the day of presentation. She was brought to the emergency room by her family for further care. She was diagnosed with an enteroviral infection. She also demonstrated atrial fibrillation with a rapid ventricular response. The patient did have a dual-chamber pacemaker placed in January because of the tachycardia/bradycardia syndrome. Her atrial fibrillation has been difficult to control. She does carry history of coronary artery disease having undergone RCA BERNARDO x 2 in May 2023. Currently, patient is resting comfortably in bed without complaints. Allergies Allergy/AdvReac Type Severity Reaction Status Date / Time codeine Allergy Intermediate Vomiting & Verified 03/02/25 08:05 hallucinations sulfamethoxazole Allergy Intermediate Rash Verified 03/02/25 08:05 [From Bactrim] trimethoprim [From Bactrim] Allergy Intermediate Rash Verified 03/02/25 08:05 Home Medications Medication Instructions Recorded Confirmed Type loratadine 10 mg tablet (Allergy 10 mg PO QAM 06/29/20 03/10/25 History Relief (loratadine)) nitroglycerin 0.4 mg sublingual 0.4 mg sublingual Q5M PRN chest 04/29/23 03/10/25 Rx tablet pain #25 tabs clopidogrel 75 mg tablet 75 mg PO DAILY 06/09/23 03/10/25 History albuterol sulfate 90 mcg/actuation 2 puff inhalation QID PRN 01/27/24 03/10/25 Rx aerosol inhaler (Ventolin HFA) shortness of breath or wheezing #18 grams fenofibrate 54 mg tablet 54 mg PO QAM #90 tabs 03/29/24 03/10/25 Rx mirabegron 50 mg tablet,extended 50 mg PO QAM #90 tabs 05/28/24 03/10/25 Rx release 24 hr (Myrbetriq) rosuvastatin 40 mg tablet (Crestor) 40 mg PO DAILY #90 tabs 07/13/24 03/10/25 Rx bupropion HCl 300 mg 24 hr tablet, 300 mg PO QAM #90 tabs 07/19/24 03/10/25 Rx extended release metformin 500 mg tablet 500 mg PO BID #200 tabs 08/04/24 03/10/25 Rx fluticasone fur. 200 mcg-umeclid 1 inh inhalation DAILY #180 ea 08/31/24 03/10/25 Rx 62.5 mcg-vilant 25 mcg inhalat.powder (Trelegy Ellipta) losartan 50 mg tablet 50 mg PO DAILY #90 tabs 09/14/24 03/10/25 Rx ibandronate 150 mg tablet 150 mg PO MONTHLY #3 tabs 09/24/24 03/10/25 Rx montelukast 10 mg tablet 10 mg PO QPM #90 tabs 10/27/24 03/10/25 Rx (Singulair) Auto Titrating CPAP #1 ea 11/15/24 03/10/25 Rx blood sugar diagnostic (Accu-Chek #100 ea 12/04/24 03/10/25 Rx Sandy Plus test strips) blood sugar diagnostic (OneTouch #100 ea 12/28/24 03/10/25 Rx Ultra Test strips) isosorbide mononitrate 30 mg 30 mg PO QAM 01/07/25 03/10/25 History tablet,extended release 24 hr pantoprazole 40 mg tablet,delayed 40 mg PO QAM 01/07/25 03/10/25 History release (Protonix) vitamin B complex 1 tab PO QAM 01/07/25 03/10/25 History ascorbic acid (vitamin C) 500 mg 500 mg PO DAILY 01/14/25 03/10/25 History capsule ferrous sulfate 325 mg (65 mg 325 mg PO DAILY #90 tabs 01/14/25 03/10/25 Rx iron) tablet pramipexole 0.25 mg tablet 0.25 mg PO QPM #60 tabs 01/14/25 03/10/25 Rx magnesium oxide 400 mg PO DAILY 01/20/25 03/10/25 History apixaban 5 mg tablet (Eliquis) 5 mg PO BID #180 tabs 02/25/25 03/10/25 Rx metoprolol succinate 100 mg 100 mg PO BID #60 tabs 02/25/25 03/10/25 Rx tablet,extended release 24 hr lorazepam 0.5 mg tablet 0.5 mg PO TID PRN anxiety or 03/01/25 03/10/25 Rx restless legs #90 tabs venlafaxine 150 mg 150 mg PO .QHS #30 caps 03/02/25 03/10/25 Rx capsule,extended release 24 hr donepezil 5 mg tablet 5 mg PO DAILY #30 tabs 03/04/25 03/10/25 Rx levothyroxine 25 mcg tablet 25 mcg PO DAILY #30 tabs 03/04/25 03/10/25 Rx Patient History Medical History Pericardial effusion PAD (peripheral artery disease) Hypomagnesemia CR (acute kidney injury) Meningioma Pseudoaneurysm of left femoral artery Left groin mass Abdominal distension Diaphoresis Chest discomfort Dyspnea on exertion Abnormal thyroid blood test Cough Close exposure to 2018-nCoV Conjunctivitis Close exposure to 2019-nCoV Cough productive of purulent sputum History of COVID-19 Dx 05/2020 (treated inpatient at [facility]) Asthma Well controlled Closed fracture of right distal fibula Thyroid nodule Osteoporosis Surgical History Hx of cardiac cath 06/05/2023 H/O laminectomy (~1991) cervical laminectomy. full rom S/P right knee arthroscopy History of esophagogastroduodenoscopy (EGD) History of colonoscopy History of cholecystectomy History of corneal transplant R/L Family History Father Diabetes Heart disease Hemangioma Glaucoma Asthma Mother Stroke Other No family history of adverse response to anesthesia Social History Smoking Status: Former smoker Tobacco Type: Cigarettes Age Started Using Tobacco: 14; Age Quit Using Tobacco: 30; packs per day: 1; Second Hand Exposure: No; Do You Dip or Chew Tobacco: No; Hx Alcohol Use: No Hx Substance Use: No Preferred Language: Hebrew Communication Ability: Effective Visual Impairment: No Limitations Hearing Ability: Normal Information Security Manager Required: No Beliefs That Will Affect Care: None marital status: Current Living Situation: Spouse current occupational status: retired Feels Safe at Home: Yes Dental Care, Regularly: Yes Seatbelt Use: always Assistive Devices: Cane, Glasses and Walker Physical Exam Physical Exam: In general is well-developed well-nourished white female no acute distress. HEENT exam is negative. Neck is supple with full carotid upstrokes. No obvious bruits. Jugular venous pressure is flat at 90 degrees. There is no thyromegaly. Cardiovascular exam reveals an irregular regular rhythm with distant heart sounds. No obvious murmurs. Lungs are clear without rales, rhonchi, or wheezes. Chest reveals a palpable device in the left subclavicular region. Abdomen is soft without bruits. Extremities reveal intact radial pulse bilaterally. No peripheral edema. Results & Data Vital Signs (Past 12 Hours) Vital Signs Temp Pulse Pulse Resp BP Pulse Ox Pulse Ox 03/11/25 14:45 105 H 20 92 03/11/25 12:57 90 03/11/25 11:24 109 H 18 93 03/11/25 10:53 36.7 C 20 95 03/11/25 07:46 36.6 C 100 H 18 126/84 93 03/11/25 07:36 114 H 18 90 03/11/25 07:22 03/11/25 06:13 100 H 03/11/25 03:49 36.2 C L 114 H 20 120/79 93 O2 Del Method O2 Flow Rate 03/11/25 14:45 Room Air 03/11/25 12:57 0 03/11/25 11:24 Room Air 03/11/25 10:53 Room Air 03/11/25 07:46 Room Air 03/11/25 07:36 Room Air 03/11/25 07:22 Room Air 03/11/25 06:13 03/11/25 03:49 CPAP Laboratory Results CBC notes hemoglobin of 10.3, hematocrit 32.2, white count 7.5, platelet count 316,000. Electrolytes noted sodium 130, potassium 3.6, chloride 103, bicarb 30, BUN 15, creatinine 0.87, and a glucose of 126. Magnesium level is normal at 2.1. High-sensitivity troponin is 5.7. TSH is elevated 6.5 but free T4 is normal at 0.84. 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 PG Care Time/CCT Total # of Minutes Spent Total Time Spent with Patient: Total time spent is greater than 50% in coordination of care (as documented) at patient's floor/unit and/or counseling patient: Coding Level of Care Code 57846 INT INP/OBS CARE 3/75MIN Diagnoses Atrial fibrillation with rapid ventricular response I48.91 CAD (coronary atherosclerotic disease) I25.10 Status post placement of cardiac pacemaker Z95.0
[2025-03-11] MEDS: DIGOXIN 250 MCG in SYRINGE 9 ML IV STA (19:27)
[2025-03-11] MEDS: VENLAFAXINE HCL XR 150 MG CAPXR PO SCH (20:26)
[2025-03-11] MEDS: PRAMIPEXOLE DIHYDROCHLO 0.25 MG TAB PO SCH (20:26)
[2025-03-11] MEDS: MONTELUKAST SODIUM 10 MG TABLET PO SCH (20:26)
[2025-03-11] MEDS: MAGNESIUM OXIDE 400 MG TAB PO SCH (20:26)
[2025-03-11] MEDS: ACETAMINOPHEN 325 MG TAB PO PRN (22:34)
[2025-03-11] MEDS: LEVALBUTEROL HCL 0.63 MG/3 ML NEB NEB SCH (22:39)
[2025-03-12] MEDS: DIGOXIN 125 MCG in SYRINGE 9.5 ML IV STA (01:38)
[2025-03-12] MEDS: POTASSIUM CHLORIDE CRTAB 20 MEQ TABCR PO STA (01:38)
[2025-03-12] MEDS: LEVOTHYROXINE SODIUM 50 MCG TABLET PO SCH (06:10)
[2025-03-12] MEDS: POLYETHYLENE (MIRALAX) 17 GM PACK PO SCH (08:06)
[2025-03-12 08:23] LABS: Hematocrit (blood only) 37.2 % (37.0-47.0); Hemoglobin 11.7 g/dl (12.0-16.0); Mean Corpuscular Hemoglobin 29.9 pg (25.0-34.0); Mean Corpuscular Hgb Conc 31.5 g/dL (32.0-36.0); Mean Corpuscular Volume 95.1 fL (80.0-100.0); Mean Platelet Volume 9.1 fL (9.4-12.4); Platelet Count 336 K/uL (130-400); RDW Coefficient of Variation 14.6 % (11.5-14.5); RDW Standard Deviation 50.6 fL (36.4-46.3); Red Blood Count 3.91 M/uL (4.20-5.40); White Blood Count 6.11 K/ul (4.8-10.8)
[2025-03-12 08:37] LABS: BUN Creatinine Ratio 18.4 (10-20); Calcium 9.8 mg/dl (8.6-10.3); Creatinine Clr Calc Pharmacy 49.8 ml/min; Magnesium 1.7 mg/dl (1.7-2.4); Potassium 4.2 mmol/L (3.5-5.1)
[2025-03-12] MEDS: IRON SUCROSE 200 MG in SODIUM CHLORIDE 0.9% 100 ML IV SCH (09:38)
--- NOTE | 2025-03-12 10:04 | Hospitalist Progress Note ---
Date of Service March 12, 2025 Assessment & Plan (1) Ambulatory dysfunction: (2) Confusion: (3) Enterovirus infection: (4) Asthma: (5) Atrial fibrillation with rapid ventricular response: (6) Hypertension: (7) CAD (coronary atherosclerotic disease): (8) Type 2 diabetes mellitus: Plan 79-year-old female with history of atrial fibrillation on Eliquis anticoagulation, hypertension, CAD, diabetes presenting with progressive confusion and ambulatory dysfunction, acutely worsening over the last 3 to 4 days. Patient with 4 falls prior to arrival with minor head trauma. Found to have enterovirus infection. #Ambulatory dysfunction #Acute metabolic encephalopathy, concern for underlying dementia patient with functional decline over the last month, acutely worsening over the last 3 to 4 days. Suspect enterovirus infection contributing to her acute decline. Patient did sustain 4 falls prior to arrival resulting in mild head trauma. She does have a cane and walker and uses them both occasionally. CT of the head with mild cerebral atrophy and periventricular white matter changes consistent with chronic small vessel disease. Unremarkable ventricles. -B12 is 633 on March 04, 2025 -TSH 6.539, free T4 0.84: Patient was started on levothyroxine 25 mcg p.o. daily approximately a week ago -Patient was started on Aricept 5 mg p.o. daily by her PCP -Outpatient carotid Dopplers from 03/08/2025 showed bilateral carotid atherosclerotic disease with calcified plaque seen mainly at the carotid bulb causing less than 50% stenosis and radiology recommended CTA/MRA for detailed luminal assessment. -MRI of the brain shows no acute infarction, shows atrophy versus mild NPH: Neurology consulted, await energy consultant recommendations -Urinalysis is negative for infection - Delirium precautions - Monitor orthostatic vital signs #Right ICA stenosis Seen on MRA of the neck: 50 to 70% stenosis Vascular surgery consulted: Spoke with Dr. Rondon who recommended CTA of the neck and he will see patient in consultation on 03/14/2025 #Enterovirus infection #Asthma patient reports some worsening cough. She is wheezing diffusely on physical exam. Chest x-ray with no evidence of pneumonia Tylenol as needed Flutter valve, incentive spirometry - Change DuoNebs to Xopenex nebs - Continue Singulair Continue home umeclidinium and vilanterol, fluticasone #Atrial fibrillation with RVR #Coronary artery disease status post RCA BERNARDO x 2 in May 2023 #History of tachycardia/bradycardia syndrome status post pacemaker in January 2025 #Essential hypertension patient recently had pacemaker placed in January 2025 for tachybradycardia syndrome. She has followed up with cardiology and is overall doing well. She is compliant with her metoprolol as well as her apixaban Continue apixaban 5 mg p.o. twice daily Continue metoprolol 100 mg p.o. twice daily - Continue Plavix and statin -Continue Imdur with hold parameters for orthostatic vital signs -Hold losartan for now since blood pressure is low normal - Cardiology saw the patient and recommended IV digoxin which was given to the patient yesterday, heart rate has improved but still over 100: Await cardiology follow-up #Hypothyroidism -TSH 6.539, free T4 0.84 - Continue levothyroxine 50 mcg p.o. daily # Anxiety and depression Continue venlafaxine 150 mg Continue bupropion 300 mg p.o. every morning Continue Ativan 0.5 mg p.o. 3 times daily as needed for anxiety or restless legs. #Restless leg syndrome #Continue Mirapex 0.25 mg every afternoon #GERD Continue Protonix 40 mg p.o. every morning #Hypothyroidism Continue Synthroid CODE STATUS: DNR/DNI DVT prophylaxis: Patient on apixaban Discharge planning to acute rehab based on PT recommendations. Discharge likely in the next 48 to 72 hours based on cardiology follow-up, neurology consult and recommendations, vascular surgery consult and recommendations Care plan discussed with patient, nursing staff and patient's son Javy ([phone]) updated on the phone with patient's permission Admission and Anticipated Discharge Date Admission Date: March 10, 2025 Subjective Patient seen and examined Labs, telemetry and radiology reviewed Telemetry showing A-fib with ventricular response rate between 90-110 Patient received IV digoxin x 2 doses yesterday She denies any headache, dizziness, lightheadedness, chest pain or shortness of breath Physical Exam Physical Exam: General: No acute distress Psych: Awake and alert, oriented to place and person HEENT: Anicteric sclera, moist oral mucosa CVS: Irregular rate and rhythm, pacemaker palpable Lungs: Bilateral air entry, no wheezing noted Abdomen: Soft, nontender, no rebound, no guarding Ext: No lower extremity edema, no calf tenderness Neuro: No focal motor deficits noted Results & Data Results & Data Vital Signs (Past 12 Hours) Vital Signs Temp Pulse Pulse Pulse Resp BP Pulse Ox 03/12/25 07:55 36.6 C 96 H 16 123/77 99 03/12/25 07:28 89 18 90 03/12/25 07:08 03/12/25 05:45 101 H 03/12/25 03:42 116 H 24 93 03/12/25 03:14 36.2 C L 98 H 20 123/85 93 03/12/25 01:38 120 H 03/12/25 00:59 111 H 95/55 L 03/11/25 23:25 36.9 C 116 H 20 119/78 91 03/11/25 22:41 101 H 20 94 03/11/25 22:39 101 H 18 94 O2 Del Method O2 Flow Rate 03/12/25 07:55 Nebulizer 03/12/25 07:28 Room Air 03/12/25 07:08 Room Air 03/12/25 05:45 03/12/25 03:42 2 03/12/25 03:14 CPAP 03/12/25 01:38 03/12/25 00:59 03/11/25 23:25 CPAP 03/11/25 22:41 2 03/11/25 22:39 Room Air Laboratory Results Laboratory Results - last 24 hr 03/11/25 03/11/25 03/12/25 07:28 Unknown 08:04 WBC 6.11 RBC 3.91 L Hgb 11.7 L Hct 37.2 MCV 95.1 MCH 29.9 MCHC 31.5 L RDW Std Deviation 50.6 H RDW Coeff of Ambreen 14.6 H Plt Count 336 MPV 9.1 L Sodium 141 Potassium 4.2 Chloride 106 Carbon Dioxide 30 Anion Gap 5 BUN 16 Creatinine 0.87 Est Cr Clr Drug Dosing 49.8 eGFR 68.15 BUN/Creatinine Ratio 18.4 Glucose 141 H Estimat Average Glucose 143 Hemoglobin A1c 6.6 H Calcium 9.8 Magnesium 1.7 Iron 30 L TIBC 400 Transferrin 286 Transferrin % Sat 8 L Cortisol AM Sample 19.66 Urine Color Yellow Urine Appearance Clear Urine pH 7.5 Ur Specific Ho[place] 1.009 Urine Protein Negative Urine Glucose (UA) Negative Urine Ketones Negative Urine Blood Negative Urine Nitrite Negative Urine Bilirubin Negative Urine Urobilinogen Negative Ur Leukocyte Esterase Negative Diagnostic Findings Brain MRI 03/11/25 11:51 MR brain wo/w con CLINICAL HISTORY: falls, gait abnormalities, TIA VS CVA COMPARISON STUDY: Head CT yesterday and MRI of 02/14/2023 FINDINGS: There is motion artifact. No restricted diffusion seen to suggest acute infarction. There is stable mild prominence of the ventricles mildly out of proportion to the sulci, cerebral atrophy versus mild normal pressure hydrocephalus. No mass effect or midline shift. There is stable mild foci of increased FLAIR signal intensity in the periventricular white matter which is nonspecific but usually represents chronic small vessel ischemic change. Stable small calcified meningioma adjacent to the left sylvian fissure. No abnormal enhancement seen in the brain. IMPRESSION: No evidence of acute infarction. Otherwise as described. ACT 112: Negative or not required by law. Electronically signed by: Pranav Stephenson M.D. 03/11/2025 3:00 PM Head MRA 03/11/25 11:51 MRA OF THE INTRACRANIAL CIRCULATION WITHOUT CONTRAST CLINICAL HISTORY: falls, gait abnormalities COMPARISON STUDY: MRI of the brain February 14, 2023. Head CT March 10, 2023. CTA of the head October 11, 2020. TECHNIQUE: Utilizing a 1.5 Lakeisha magnet and 3-D [id number] technique, unenhanced MRA of the intracranial circulation was obtained. FINDINGS: Please note that the MRI of the brain will be reported separately. This exam is mildly compromised by artifact. The bilateral M1, M2, A1 and A2 segments are patent. No intracranial aneurysm is identified although sensitivity for detection of small aneurysms is diminished on this exam. The posterior circulation is intact. No intracranial vessel occlusion is identified. IMPRESSION: Unremarkable MRA of the head. Mild motion artifact. ACT 112: Negative or not required by law. Electronically signed by: Gorge Penny M.D. 03/11/2025 2:57 PM Neck MRA 03/11/25 11:51 NECK MRA HISTORY: falls, gait abnormalities, abnormal carotid US TECHNIQUE: [id number] and gadolinium-enhanced MRA of the neck was performed both before and after the intravenous administration of contrast. All measurements were calculated based on NASCET criteria. COMPARISON STUDY: Ultrasound of 03/08/2025 FINDINGS: There is motion artifact. There is narrowing of 50-70% proximal right internal carotid artery. There is possible mild narrowing of less than 50% proximal left internal carotid artery. No other significant narrowing or occlusion seen at the common or internal carotid or vertebral arteries bilaterally. IMPRESSION: 1. 50-70% narrowing proximal right ICA. 2. Possible mild narrowing proximal left ICA. ACT 112: Negative or not required by law. Electronically signed by: Pranav Stephenson M.D. 03/11/2025 3:05 PM PG Care Time/CCT Total # of Minutes Spent Total Time Spent with Patient: Total time spent is greater than 50% in coordination of care (as documented) at patient's floor/unit and/or counseling patient: Coding Level of Care Code 78356 SUB INP/OBS CARE 3/50MIN Diagnoses Ambulatory dysfunction R26.2 Confusion R41.0 Enterovirus infection B34.1 Asthma J45.909 Atrial fibrillation with rapid ventricular response I48.91 Hypertension I10 CAD (coronary atherosclerotic disease) I25.10 Type 2 diabetes mellitus E11.9
[2025-03-12] MEDS: MAGNESIUM SULFATE / D5W 1 GM/100 ML BAG IV SCH (10:09)
--- NOTE | 2025-03-12 10:58 | Neurology Consultation ---
Date of Consultation March 12, 2025 Assessment & Plan (1) Ambulatory dysfunction: (2) Recurrent falls: (3) Mild cognitive disorder: (4) Chronic cerebral ischemia: (5) Carotid stenosis, right: Plan This patient has a subacute history of generalized fatigue and sense of weakness with balance issues and recurrent falling. Etiology of the falling is likely multifactorial. Interestingly, she has quite normal strength in all individual muscles tested in the arms and legs both proximally and distally. When she walks, she is very cautious. Gait is somewhat narrow-based and not "glued to the floor" or "shuffling". Gait is worse with feet together or with eyes closed. 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 This would put her at great risk for falling. The patient has mild cognitive impairment by history although she functions fairly well on a routine basis. I suspect an early vascular dementia given her MRI with mild to moderate chronic small vessel ischemic disease and generalized atrophy. The specter of normal pressure hydrocephalus has been alluded to by radiology. After reviewing the films I am not convinced that this is consistent with normal pressure hydrocephalus. 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 In addition, she has no urinary incontinence and her gait is not typical of someone with NPH. 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 She also has a positive entero-/rhinovirus titer. This viral illness could be contributing to her sense of weakness and fatigue as well. I do not suspect a myopathy. Incidentally, the patient has a right carotid stenosis of 50 to 70% with no acute stroke. The patient has been on Plavix and rosuvastatin. The patient has restless leg syndrome stable on low-dose pramipexole. The patient has anxiety depression, fairly stable on venlafaxine and bupropion. Recommendations: 1. Continue clopidogrel 75 mg daily 2. I see no need for additional testing regarding a possible normal pressure hydrocephalus diagnosis. This should be done as an outpatient anyway. 3. If not already obtained CK, B12, Lyme antibody titer, aldolase. 4. Replace iron as you are doing 5. Adjust thyroid medication as needed. Until she is euthyroid, I would not evaluate her legs or weakness any further. An EMG and nerve conduction study could be done as an outpatient. 6. The carotid stenosis could be followed as an outpatient. There is no need for additional testing or treatment for this problem at this time. 7. Consider physical therapy for gait training and strengthening. She probably needs to continue to use a walker or 4 points of restraint as opposed to the cane alone. 8. Continue donepezil 5 mg in the evening for now. 9. She could be followed as an outpatient and see one of the neurology PAs in several weeks post discharge. Overall, I spent a total of 90 minutes with this case including review of records, review of CT and MRI films, direct evaluation of the patient at bedside, report generation, and discussion of the case with the patient and RN at bedside as well as Dr. Milligan, including differential diagnosis and treatment options. History of Present Illness Reason for Consultation: Patient is a 79-year-old who I was asked to see at the request of Dr. Milligan, for neurologic evaluation regarding abnormal MRI of the brain and other issues. Requesting Physician: Dr. Milligan Attending Physician: Ry Milligan MD History of Present Illness This patient has a history of several cardiac issues including persistent atrial fibrillation with rapid ventricular rate and tachybradycardia syndrome requiring pacemaker. She also has a history of hypertension and type 2 diabetes. These have been stable. She has been on clopidogrel 75 mg daily for several years. The patient has a history of mild cognitive impairment. A Mini-Mental Status Examination given March 02 of this year resulted in the patient obtaining 27 out of 30 points, missing 3 questions of orientation. She did get the 3 objects to remember several minutes later. Patient herself believes that she is forgetful with names only and still has a very good memory in general. She has been on donepezil 5 mg daily. Over the last 2 months she feels that she has had some increased weakness in her legs and fatigue with easy fatigability. She thinks her arms are relatively spared. Over the last week she has been falling. She does not get dizzy or lightheaded and will walk and suddenly lose her balance or her legs will buckle. She denies numbness in her feet. There is no history of urinary incontinence. She arrived to emergency room March 10 at 1917, with a temperature 36.6, pulse of 120 and irregular, respiratory rate 18, blood pressure 117/86, and O2 saturation 94%. On examination she was quite alert and responsive with no mental status changes. Neurologic examination was unremarkable for any focal deficit and neck was supple. CBC showed borderline anemia. CHEM profile showed a low magnesium and elevated BNP of 880. TSH was elevated at 6.5 and free T4 was 0.8. She was positive for entero-/rhinovirus. Lactate was 1.1. CT scan of the cervical spine showed multilevel spondylosis and spinal stenosis particularly at C3-4. She is post cervical spine laminectomy approximately 40 years ago. I do not have details regarding this. Chest x-ray showed a moderately enlarged heart with no other acute changes CT scan of the head showed mild atrophy and some mild small vessel ischemic disease. MR angiography of the neck revealed a 50 to 70% stenosis of the right internal carotid artery. The rest of the vessels were unremarkable. MR angiography of the head showed no intracranial or other vascular stenoses or anomalies. MRI of the brain showed mild to moderate generalized atrophy with mild to moderate old small vessel ischemic disease of nonspecific. I reviewed these films and I am not convinced that the ventricle enlargement is out of proportion to the amount of atrophy. To me this looks like hydrocephalus ex vacuo. Patient has complaint of pain or headache. Her vision is unremarkable. She feels the same now she did yesterday. Iron was low at 30 and transferrin was low at 8. There is mild anemia on CBC today and CHEM profile was largely unremarkable. Magnesium has been replaced and she is getting an iron infusion this morning. Patient has a history of restless leg syndrome helped with pramipexole 0.25 mg a day. She has anxiety depression helped with venlafaxine 150 mg daily and bupropion ER 300 mg daily. She has a history of recent onset thyroid disease Allergies Allergy/AdvReac Type Severity Reaction Status Date / Time codeine Allergy Intermediate Vomiting & Verified 03/02/25 08:05 hallucinations sulfamethoxazole Allergy Intermediate Rash Verified 03/02/25 08:05 [From Bactrim] trimethoprim [From Bactrim] Allergy Intermediate Rash Verified 03/02/25 08:05 Home Medications Medication Instructions Recorded Confirmed Type loratadine 10 mg tablet (Allergy 10 mg PO QAM 06/29/20 03/10/25 History Relief (loratadine)) nitroglycerin 0.4 mg sublingual 0.4 mg sublingual Q5M PRN chest 04/29/23 03/10/25 Rx tablet pain #25 tabs clopidogrel 75 mg tablet 75 mg PO DAILY 06/09/23 03/10/25 History albuterol sulfate 90 mcg/actuation 2 puff inhalation QID PRN 01/27/24 03/10/25 Rx aerosol inhaler (Ventolin HFA) shortness of breath or wheezing #18 grams fenofibrate 54 mg tablet 54 mg PO QAM #90 tabs 03/29/24 03/10/25 Rx mirabegron 50 mg tablet,extended 50 mg PO QAM #90 tabs 05/28/24 03/10/25 Rx release 24 hr (Myrbetriq) rosuvastatin 40 mg tablet (Crestor) 40 mg PO DAILY #90 tabs 07/13/24 03/10/25 Rx bupropion HCl 300 mg 24 hr tablet, 300 mg PO QAM #90 tabs 07/19/24 03/10/25 Rx extended release metformin 500 mg tablet 500 mg PO BID #200 tabs 08/04/24 03/10/25 Rx fluticasone fur. 200 mcg-umeclid 1 inh inhalation DAILY #180 ea 08/31/24 03/10/25 Rx 62.5 mcg-vilant 25 mcg inhalat.powder (Trelegy Ellipta) losartan 50 mg tablet 50 mg PO DAILY #90 tabs 09/14/24 03/10/25 Rx ibandronate 150 mg tablet 150 mg PO MONTHLY #3 tabs 09/24/24 03/10/25 Rx montelukast 10 mg tablet 10 mg PO QPM #90 tabs 10/27/24 03/10/25 Rx (Singulair) Auto Titrating CPAP #1 ea 11/15/24 03/10/25 Rx blood sugar diagnostic (Accu-Chek #100 ea 12/04/24 03/10/25 Rx Sandy Plus test strips) blood sugar diagnostic (OneTouch #100 ea 12/28/24 03/10/25 Rx Ultra Test strips) isosorbide mononitrate 30 mg 30 mg PO QAM 01/07/25 03/10/25 History tablet,extended release 24 hr pantoprazole 40 mg tablet,delayed 40 mg PO QAM 01/07/25 03/10/25 History release (Protonix) vitamin B complex 1 tab PO QAM 01/07/25 03/10/25 History ascorbic acid (vitamin C) 500 mg 500 mg PO DAILY 01/14/25 03/10/25 History capsule ferrous sulfate 325 mg (65 mg 325 mg PO DAILY #90 tabs 01/14/25 03/10/25 Rx iron) tablet pramipexole 0.25 mg tablet 0.25 mg PO QPM #60 tabs 01/14/25 03/10/25 Rx magnesium oxide 400 mg PO DAILY 01/20/25 03/10/25 History apixaban 5 mg tablet (Eliquis) 5 mg PO BID #180 tabs 02/25/25 03/10/25 Rx metoprolol succinate 100 mg 100 mg PO BID #60 tabs 02/25/25 03/10/25 Rx tablet,extended release 24 hr lorazepam 0.5 mg tablet 0.5 mg PO TID PRN anxiety or 03/01/25 03/10/25 Rx restless legs #90 tabs venlafaxine 150 mg 150 mg PO .QHS #30 caps 03/02/25 03/10/25 Rx capsule,extended release 24 hr donepezil 5 mg tablet 5 mg PO DAILY #30 tabs 03/04/25 03/10/25 Rx levothyroxine 25 mcg tablet 25 mcg PO DAILY #30 tabs 03/04/25 03/10/25 Rx Patient History Medical History Pericardial effusion PAD (peripheral artery disease) Hypomagnesemia CR (acute kidney injury) Meningioma Pseudoaneurysm of left femoral artery Left groin mass Abdominal distension Diaphoresis Chest discomfort Dyspnea on exertion Abnormal thyroid blood test Cough Close exposure to 2018-V Conjunctivitis Close exposure to 2018-V Cough productive of purulent sputum History of COVID-19 Dx 05/2020 (treated inpatient at [facility]) Asthma Well controlled Closed fracture of right distal fibula Thyroid nodule Osteoporosis Surgical History Hx of cardiac cath 06/05/2023 H/O laminectomy (~1991) cervical laminectomy. full rom S/P right knee arthroscopy History of esophagogastroduodenoscopy (EGD) History of colonoscopy History of cholecystectomy History of corneal transplant R/L Family History Father , age 82 of heart disease. Diabetes Heart disease Hemangioma Glaucoma Asthma Hypertension Mother , age 78 of a "massive" stroke Stroke Other No family history of adverse response to anesthesia Social History (Updated 03/12/25 @ 10:46 by Baljinder Hunt MD) Smoking Status: Former smoker Tobacco Type: Cigarettes Age Started Using Tobacco: 14; Age Quit Using Tobacco: 41; packs per day: 0.5; Second Hand Exposure: No; Do You Dip or Chew Tobacco: No; Hx Alcohol Use: No Hx Substance Use: No Preferred Language: Croatian Communication Ability: Effective Visual Impairment: No Limitations Hearing Ability: Normal Supervisory Training Specialist Required: No Beliefs That Will Affect Care: None marital status: Current Living Situation: Spouse current occupational status: retired 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 Feels Safe at Home: Yes Dental Care, Regularly: Yes Seatbelt Use: always Assistive Devices: Cane, CPAP, Glasses, Nebulizer and Walker Review of Systems Constitutional: + fatigue and + weakness; no fever Eyes: no diplopia, no eye pain and no worsening vision Ear, Nose, Mouth, Throat: no ear pain, no tinnitus, no hearing loss, no dizziness, no snoring, no hoarseness and no dysphagia Respiratory: no cough and no dyspnea Cardiovascular: no chest pain, no palpitations and no lightheadedness Gastrointestinal: no abdominal pain, no nausea and no vomiting Genitourinary: no dysuria, no urinary frequency and no urinary incontinence Musculoskeletal: no back pain, no neck pain, no radicular pain, no joint pain and no myalgia Integumentary: no rash and no lesions Neurologic: + gait abnormality, + localized weakness and + memory loss; no generalized weakness, no tingling, no numbness, no tremor(s), no abnormal movements, no headache(s), no abnormal speech and no confusion Psychiatric: + depression and + anxiety; no irritabil ity, no difficulty concentrating, no confusion and no hallucinations Endocrine: no fatigue and no flushing Hematologic / Lymphatic: no easy bleeding and no easy bruising Allergy / Immunological: no urticaria and no problem reported Exam (Neuro) Physical Exam: The patient is right-handed. The patient is awake, alert, and attentive. Speech is normal without any aphasia or dysarthria. Mentation and thought processes are intact, with full orientation and normal fund of knowledge. Mood and affect are normal and appropriate. Appearance and grooming are normal. Short and long-term memory are intact to conversation. Pupils are 4 mm bilaterally and reactive to light. Extraocular eye muscles are intact without nystagmus. Visual acuity and visual martins seem normal grossly to confrontation. There are no deficits to sensation in the face in all 3 distributions of the fifth cranial nerve bilaterally. Corneal reflexes are positive bilaterally. Facial strength and symmetry was normal bilaterally. Hearing seems intact grossly to voice and finger rub bilaterally. Palate moves well without asymmetry. There is normal sternocleidomastoid and trapezius strength bilaterally. Tongue is midline with good strength bilaterally. Neck has a full range of motion without discomfort. There are no cervical bruits bilaterally. There are no cranial or ocular bruits. Heart is without murmur. There is a regular rhythm and rate. Cervical, thoracic, and lumbar spine are nontender to palpation. Stance sitting up in bed with feet dangling is quite normal. She can stand on her own power but is a little shaky. When standing with feet together or with eyes closed her gait deteriorates quickly. Otherwise her gait is narrow-based and somewhat cautious with cautious turns. With outstretched arms there is no drift. There are no resting tremors. She has very mild action tremor bilaterally. There is no ataxia with finger to nose testing. There is good facility in the hands. No other abnormal involuntary movements are noted. Motor strength is 5/5 diffusely in the arms bilaterally including deltoids, biceps, triceps, brachioradialis, wrist flexors and extensors, silk screen operator, and intrinsic hand muscles. Motor strength is 5/5 diffusely in the legs bilaterally including hip flexors, quadriceps, hamstrings, gastrocnemius, tibialis anterior, tibialis posterior, and Peroneii muscles bilaterally. Toe extensors are normal and there is good bulk in the extensor digitorum brevis muscles bilaterally. There is no focal weakness in the limbs. The limbs have good tone without rigidity or spasticity. There is no atrophy noted in the muscles. Muscle bulk is normal, there is no tenderness to palpation, no myotonia to percussion, and no fasciculations seen. Sensory examination is remarkable for a stocking distribution pinprick loss to the mid lower legs bilaterally. Reflexes are 2/4 in the triceps and quadriceps tendons bilaterally. Reflexes are trace to 1/4 in the biceps, brachioradialis, and Achilles tendons bilaterally. Toes are downgoing with plantar stimulation bilaterally. Peripheral pulses are present and of normal quality distally in all 4 limbs. There is no peripheral edema noted in the limbs. Results & Data Vital Signs (Past 12 Hours) Vital Signs Temp Pulse Pulse Pulse Resp BP Pulse Ox 03/12/25 07:55 36.6 C 96 H 16 123/77 99 03/12/25 07:28 89 18 90 03/12/25 07:08 03/12/25 05:45 101 H 03/12/25 03:42 116 H 24 93 03/12/25 03:14 36.2 C L 98 H 20 123/85 93 03/12/25 01:38 120 H 03/12/25 00:59 111 H 95/55 L 03/11/25 23:25 36.9 C 116 H 20 119/78 91 03/11/25 22:41 101 H 20 94 03/11/25 22:39 101 H 18 94 O2 Del Method O2 Flow Rate 03/12/25 07:55 Nebulizer 03/12/25 07:28 Room Air 03/12/25 07:08 Room Air 03/12/25 05:45 03/12/25 03:42 2 03/12/25 03:14 CPAP 03/12/25 01:38 03/12/25 00:59 03/11/25 23:25 CPAP 03/11/25 22:41 2 03/11/25 22:39 Room Air PG Care Time/CCT Total # of Minutes Spent Total Time Spent with Patient: Total time spent is greater than 50% in coordination of care (as documented) at patient's floor/unit and/or counseling patient: Coding Level of Care Code 48633 INT INP/OBS CARE 3/75MIN Diagnoses Ambulatory dysfunction R26.2 Recurrent falls R29.6 Mild cognitive disorder F09 Chronic cerebral ischemia I67.82 Carotid stenosis, right I65.21 Time Spent (min) 90
[2025-03-12] MEDS: OPTIRAY 320 125ml IV ONE (10:59)
--- NOTE | 2025-03-12 11:32 | CT Scan Report ---
CT angio neck with con CLINICAL HISTORY: right ica stenosis, CTA recommended by Dr. CALLES. COMPARISON STUDY: MR angiography yesterday TECHNIQUE: Following the IV administration of 112 of Optiray, CT angiogram of the neck was performed from the aortic arch to the skull base. Images are reviewed in the axial, sagittal, and coronal plane s. 3-D MIPS images are created and assessed. IV contrast was administered without complication. All m easurements were calculated based on NASCET criteria. A dose lowering technique was utilized adherin g to the principles of ALARA. CT DOSE: 437.22 mGy.cm FINDINGS: There are scattered atherosclerotic calcifications. There are carotid bulb calcifications. There is 50-70% stenosis proximal right internal carotid artery. No other significant narrowing or oc clusion seen at the common or internal carotid arteries bilaterally. The left vertebral artery origin ates from the aortic arch, anatomic variant. No significant narrowing or occlusion seen at the verteb ral arteries bilaterally. There are severe diffuse findings of degenerative disc disease at the cervi nerissa spine. There is a small bone cyst at the C3 vertebral body. IMPRESSION: 1. 50-70% narrowing proximal right ICA. 2. No other significant arterial narrowing seen at the neck. ACT 112: Negative or not required by law. The above report was generated using voice recognition software. It may contain grammatical, syntax o r spelling errors. Electronically signed by: Pranav Stephenson M.D. 03/12/2025 11:30 AM
--- NOTE | 2025-03-12 11:52 | Cardiology Progress Note ---
Date of Service March 12, 2025 Assessment & Plan (1) Atrial fibrillation with rapid ventricular response: Plan: -Ventricular response remains elevated. -Some improvement yesterday with intravenous digoxin. -Would give an additional dose of digoxin 0.25 Mg IV now, and then repeat in 4 hours. -Would start oral digoxin at 0.125 Mg daily later today. -Continue metoprolol succinate. -Continue Eliquis as you are. -Could consider use of intravenous amiodarone for rate control. -She may eventually require an AV node ablation. (2) CAD (coronary atherosclerotic disease): Plan: -s/p RCA BERNARDO x , May 2023 -Continue medical management. 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 Admission and Anticipated Discharge Date Admission Date: March 10, 2025 Subjective The patient is resting comfortably in bed without complaints of chest pain or dyspnea. She does note an occasional palpitation. Physical Exam Physical Exam: In general is well-developed well-nourished white female no acute distress. HEENT exam is negative. Neck is supple with full carotid upstrokes. No obvious bruits. Jugular venous pressure is flat at 90 degrees. There is no thyromegal y. Cardiovascular exam reveals an irregular regular rhythm with distant heart sounds. No obvious murmurs. Lungs are clear without rales, rhonchi, or wheezes. Chest reveals a palpable device in the left subclavicular region. Abdomen is soft without bruits. Extremities reveal intact radial pulse bilaterally. No peripheral edema. 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 PG Care Time/CCT Total # of Minutes Spent Total Time Spent with Patient: Total time spent is greater than 50% in coordination of care (as documented) at patient's floor/unit and/or counseling patient: Coding Level of Care Code 74339 SUB INP/OBS CARE 3/50MIN Diagnoses Atrial fibrillation with rapid ventricular response I48.91 CAD (coronary atherosclerotic disease) I25.10 Status post placement of cardiac pacemaker Z95.0
[2025-03-12] MEDS: DIGOXIN 250 MCG in SYRINGE 9 ML IV SCH (12:44)
[2025-03-12] MEDS: SODIUM CHLORIDE 0.9% 500 ML IV SCH (14:25)
[2025-03-12] MEDS: SODIUM CHLORIDE 0.9% 250 ML IV ONE (15:02)
[2025-03-12] MEDS: SENNA 8.6 MG TAB PO SCH (20:50)
[2025-03-12] MEDS: MAGNESIUM OXIDE 400 MG TAB PO SCH (21:04)
[2025-03-13 06:38] LABS: BUN Creatinine Ratio 14.6 (10-20); Calcium 8.9 mg/dl (8.6-10.3); Creatinine Clr Calc Pharmacy 52.8 ml/min; Magnesium 1.7 mg/dl (1.7-2.4); Potassium 4.2 mmol/L (3.5-5.1)
[2025-03-13] MEDS ORDERED: LEVALBUTEROL HCL 0.63 MG/3 ML NEB NEB PRN (08:05)
[2025-03-13] MEDS: MAGNESIUM SULFATE / D5W 1 GM/100 ML BAG IV SCH (09:04)
--- NOTE | 2025-03-13 10:12 | Hospitalist Progress Note ---
Date of Service March 13, 2025 Assessment & Plan (1) Ambulatory dysfunction: (2) Confusion: (3) Enterovirus infection: (4) Asthma: (5) Atrial fibrillation with rapid ventricular response: (6) Hypertension: (7) CAD (coronary atherosclerotic disease): (8) Type 2 diabetes mellitus: Plan 79-year-old female with history of atrial fibrillation on Eliquis anticoagulation, hypertension, CAD, diabetes presenting with progressive confusion and ambulatory dysfunction, acutely worsening over the last 3 to 4 days. Patient with 4 falls prior to arrival with minor head trauma. Found to have enterovirus infection. #Ambulatory dysfunction #Acute metabolic encephalopathy, concern for underlying cognitive impairment patient with functional decline over the last month, acutely worsening over the last 3 to 4 days. Suspect enterovirus infection contributing to her acute decline. Patient did sustain 4 falls prior to arrival resulting in mild head trauma. She does have a cane and walker and uses them both occasionally. CT of the head with mild cerebral atrophy and periventricular white matter changes consistent with chronic small vessel disease. Unremarkable ventricles. -B12 is 633 on March 04, 2025 -TSH 6.539, free T4 0.84: Patient was started on levothyroxine 25 mcg p.o. daily approximately a week ago -Patient was started on Aricept 5 mg p.o. daily by her PCP -Outpatient carotid Dopplers from 03/08/2025 showed bilateral carotid atherosclerotic disease with calcified plaque seen mainly at the carotid bulb causing less than 50% stenosis and radiology recommended CTA/MRA for detailed luminal assessment. -MRI of the brain shows no acute infarction, shows atrophy versus mild NPH -Neurology saw the patient I did not feel any additional testing regarding possibility of normal pressure hydrocephalus and felt if this diagnosis was entertained this can be done as an outpatient anyways and recommended outpatient neurology follow-up. They recommended checking CK, B12, Lyme antibody titer and aldolase -CK is 44, B12 766, Lyme screening antibody test: Negative, aldolase sent: Results pending -Urinalysis is negative for infection - Delirium precautions - Monitor orthostatic vital signs #Right ICA stenosis Seen on MRA of the neck: 50 to 70% stenosis CT of the neck shows 50 to 70% stenosis Vascular surgery consulted, Dr. Calles to see patient tomorrow #Enterovirus infection #Asthma #Acute Bronchitis Chest x-ray on admission with no evidence of pneumonia and procalcitonin less than 0.02 -Patient now with yellow sputum production: Check sputum culture, start do xycycline 100 mg p.o. twice daily for acute bronchitis Tylenol as needed Flutter valve, incentive spirometry - Xopenex nebs as needed - Continue Singulair Continue home umeclidinium and vilanterol, fluticasone #Atrial fibrillation with RVR #Coronary artery disease status post RCA BERNARDO x 2 in May 2023 #History of tachycardia/bradycardia syndrome status post pacemaker in January 2025 #Essential hypertension Outpatient engine watchman Dr. Baig -Echocardiogram from 01/05/2025 shows EF of 60 to 65%, no regional wall motion abnormalities, moderate concentric LVH, severe left atrial dilatation, mild mitral regurgitation and indeterminate diastolic dysfunction. 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 She has followed up with cardiology and is overall doing well. She is compliant with her metoprolol as well as her apixaban Continue apixaban 5 mg p.o. twice daily Continue metoprolol succinate 100 mg p.o. twice daily - Continue Plavix and statin -Continue Imdur with hold parameters for orthostatic vital signs -Hold losartan for now since blood pressure is low normal - Cardiology following the patient: Patient has received IV digoxin and transition to oral digoxin per cardiology recommendations - Discussed with cardiology Dr. Gallo today: Initially Dr. Gallo recommended IV Cardizem but patient's blood pressure dropped and heart rate was in the 80s. At this point Dr. Gallo has recommended holding off on IV Cardizem infusion and will have Dr. Baig follow-up with patient regarding AV node ablation #Hypothyroidism -TSH 6.539, free T4 0.84 - Continue levothyroxine 50 mcg p.o. daily # Anxiety and depression Continue venlafaxine 150 mg Continue bupropion 300 mg p.o. every morning Continue Ativan 0.5 mg p.o. 3 times daily as needed for anxiety or restless legs. #Restless leg syndrome #Continue Mirapex 0.25 mg every afternoon #GERD Continue Protonix 40 mg p.o. every morning #Hypothyroidism Continue Synthroid CODE STATUS: DNR/DNI DVT prophylaxis: Patient on apixaban Discharge planning to acute rehab based on PT recommendations. Discharge likely in the next 48 to 72 hours based on cardiology follow-up regarding ablation, vascular surgery consult and recommendations Care plan discussed with patient, nursing staff and patient's son Javy ([phone]) updated on the phone with patient's permission Admission and Anticipated Discharge Date Admission Date: March 10, 2025 Subjective Patient resting comfortably She denies any chest pain or shortness of breath Overall feels much better She still has a cough but feels cough is improved and is now with yellow sputum She denies any fever, chills, nausea, vomiting, abdominal pain Physical Exam Physical Exam: General: No acute distress Psych: Awake and alert, oriented to place and person HEENT: Anicteric sclera, moist oral mucosa CVS: Irregular rate and rhythm, pacemaker palpable Lungs: Bilateral air entry, no wheezing noted Abdomen: Soft, nontender, no rebound, no guarding Ext: No lower extremity edema, no calf tenderness Neuro: No focal motor deficits noted Results & Data Results & Data Vital Signs (Past 12 Hours) Vital Signs Temp Pulse Pulse Resp BP Pulse Ox O2 Del Method 03/13/25 07:55 36.6 C 121 H 16 150/94 H 92 Room Air 03/13/25 07:20 79 18 91 Room Air 03/13/25 07:13 Room Air 03/13/25 06:00 94 H 03/13/25 03:32 37.0 C 111 H 18 123/64 92 Room Air 03/13/25 01:49 108 H 03/13/25 00:21 Room Air 03/12/25 23:19 36.5 C 116 H 18 138/86 93 Room Air 03/12/25 23:15 96 H 24 93 03/12/25 22:44 89 16 95 Room Air O2 Flow Rate 03/13/25 07:55 03/13/25 07:20 03/13/25 07:13 03/13/25 06:00 03/13/25 03:32 03/13/25 01:49 03/13/25 00:21 03/12/25 23:19 03/12/25 23:15 2 03/12/25 22:44 Laboratory Results Laboratory Results - last 24 hr 03/12/25 03/13/25 12:27 05:39 Sodium 140 Potassium 4.2 Chloride 108 H Carbon Dioxide 27 Anion Gap 5 BUN 12 Creatinine 0.82 Est Cr Clr Drug Dosing 52.8 eGFR 73.17 BUN/Creatinine Ratio 14.6 Glucose 106 H POC Glucose 117 H Calcium 8.9 Magnesium 1.7 Total Creatine Kinase 44 Aldolase Pending Vitamin B12 766 Lyme Disease Screen Negative Diagnostic Findings Neck CTA 03/12/25 10:19 CT angio neck with con CLINICAL HISTORY: right ica stenosis, CTA recommended by Dr. CALLES. COMPARISON STUDY: MR angiography yesterday TECHNIQUE: Following the IV administration of 112 of Optiray, CT angiogram of the neck was performed from the aortic arch to the skull base. Images are reviewed in the axial, sagittal, and coronal planes. 3-D MIPS images are created and assessed. IV contrast was administered without complication. All measurements were calculated based on NASCET criteria. A dose lowering technique was utilized adhering to the principles of ALARA. CT DOSE: 437.22 mGy.cm FINDINGS: There are scattered atherosclerotic calcifications. There are carotid bulb calcifications. There is 50-70% stenosis proximal right internal carotid artery. No other significant narrowing or occlusion seen at the common or internal carotid arteries bilaterally. The left vertebral artery originates from the aortic arch, anatomic variant. No significant narrowing or occlusion seen at the vertebral arteries bilaterally. There are severe diffuse findings of degenerative disc disease at the cervical spine. There is a small bone cyst at the C3 vertebral body. IMPRESSION: 1. 50-70% narrowing proximal right ICA. 2. No other significant arterial narrowing seen at the neck. ACT 112: Negative or not required by law. The above report was generated using voice recognition software. It may contain grammatical, syntax or spelling errors. Electronically signed by: Pranav Stephenson M.D. 03/12/2025 11:30 AM PG Care Time/CCT Total # of Minutes Spent Total Time Spent with Patient: Total time spent is greater than 50% in coordination of care (as documented) at patient's floor/unit and/or counseling patient: Coding Level of Care Code 15964 SUB INP/OBS CARE 3/50MIN Diagnoses Ambulatory dysfunction R26.2 Confusion R41.0 Enterovirus infection B34.1 Asthma J45.909 Atrial fibrillation with rapid ventricular response I48.91 Hypertension I10 CAD (coronary atherosclerotic disease) I25.10 Type 2 diabetes mellitus E11.9
--- NOTE | 2025-03-13 10:28 | Cardiology Progress Note ---
Date of Service March 13, 2025 Assessment & Plan (1) Atrial fibrillation with rapid ventricular response: Plan: -Ventricular response remains elevated. -Some improvement digoxin. -Would start intravenous diltiazem. -Continue metoprolol succinate. -Continue Eliquis. -She may eventually require an AV node ablation. (2) CAD (coronary atherosclerotic disease): Plan: -s/p RCA BERNARDO x , May 2023 -Continue medical management. 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 Admission and Anticipated Discharge Date Admission Date: March 10, 2025 Subjective The patient is resting comfortably in bed without complaints of chest pain or dyspnea. She does note an occasional palpitation. Physical Exam Physical Exam: In general is well-developed well-nourished white female no acute distress. HEENT exam is negative. Neck is supple with full carotid upstrokes. No obvious bruits. Jugular venous pressure is flat at 90 degrees. There is no thyromegaly. Cardiovascular exam reveals an irregular regular rhythm with distant heart sounds. No obvious murmurs. Lungs are clear without rales, rhonchi, or wheezes. Chest reveals a palpable device in the left subclavicular region. Abdomen is soft without bruits. Extremities reveal intact radial pulse bilaterally. No peripheral edema. Results & Data Vital Signs (Past 12 Hours) Vital Signs Temp Pulse Pulse Pulse Pulse Resp BP 03/13/25 07:56 133 H 116 H 121 H 150/94 H 03/13/25 07:55 36.6 C 121 H 16 150/94 H 03/13/25 07:20 79 18 03/13/25 07:13 03/13/25 06:00 94 H 03/13/25 03:32 37.0 C 111 H 18 123/64 03/13/25 01:49 108 H 03/13/25 00:21 03/12/25 23:19 36.5 C 116 H 18 138/86 03/12/25 23:15 96 H 24 03/12/25 22:44 89 16 Pulse Ox O2 Del Method O2 Flow Rate 03/13/25 07:56 03/13/25 07:55 92 Room Air 03/13/25 07:20 91 Room Air 03/13/25 07:13 Room Air 03/13/25 06:00 03/13/25 03:32 92 Room Air 03/13/25 01:49 03/13/25 00:21 Room Air 03/12/25 23:19 93 Room Air 03/12/25 23:15 93 2 03/12/25 22:44 95 Room Air Diagnostic Findings bandoleer straightener stamper notes atrial fibrillation with ventricular response varying from 90 to 120 bpm. PG Care Time/CCT Total # of Minutes Spent Total Time Spent with Patient: Total time spent is greater than 50% in coordination of care (as documented) at patient's floor/unit and/or counseling patient: Coding Level of Care Code 15031 SUB INP/OBS CARE 3/50MIN Diagnoses Atrial fibrillation with rapid ventricular response I48.91 CAD (coronary atherosclerotic disease) I25.10 Status post placement of cardiac pacemaker Z95.0
--- NOTE | 2025-03-13 11:38 | XRay Report ---
XR chest 2V PA/lateral CLINICAL HISTORY: cough COMPARISON STUDY: 03/10/2025 FINDINGS: Stable pacemaker. Stable mitral valvular calcifications. Stable prominent cardiomegaly with mild pulmonary vascular congestion. There is interval stranding opacity at the left lung base with p artial obscuration of the left hemidiaphragm. No pneumothorax. IMPRESSION: 1. CHF. 2. Atelectasis versus pneumonia left lung base. ACT 112: Negative or not required by law. Electronically signed by: Pranav Stephenson M.D. 03/13/2025 11:37 AM
[2025-03-13] MEDS: DOXYCYCLINE HYCLATE 100 MG CAP PO STA (14:44)
[2025-03-13] MEDS: DIGOXIN 0.125 MG TAB PO SCH (15:36)
[2025-03-13] MEDS: DOXYCYCLINE HYCLATE 100 MG CAP PO SCH (21:24)
[2025-03-14 07:58] LABS: Hematocrit (blood only) 35.4 % (37.0-47.0); Hemoglobin 11.1 g/dl (12.0-16.0); Mean Corpuscular Hemoglobin 29.5 pg (25.0-34.0); Mean Corpuscular Hgb Conc 31.4 g/dL (32.0-36.0); Mean Corpuscular Volume 94.1 fL (80.0-100.0); Mean Platelet Volume 9.4 fL (9.4-12.4); Platelet Count 342 K/uL (130-400); RDW Coefficient of Variation 14.5 % (11.5-14.5); RDW Standard Deviation 50.4 fL (36.4-46.3); Red Blood Count 3.76 M/uL (4.20-5.40); White Blood Count 6.93 K/ul (4.8-10.8)
[2025-03-14 08:15] LABS: BUN Creatinine Ratio 12.8 (10-20); Calcium 9.2 mg/dl (8.6-10.3); Creatinine Clr Calc Pharmacy 46.6 ml/min; Magnesium 1.8 mg/dl (1.7-2.4); Potassium 3.9 mmol/L (3.5-5.1)
[2025-03-14] MEDS: MAGNESIUM SULFATE / D5W 1 GM/100 ML BAG IV SCH (08:53)
[2025-03-14] MEDS: POTASSIUM CHLORIDE CRTAB 20 MEQ TABCR PO STA (08:54)
--- NOTE | 2025-03-14 09:25 | Consultation ---
Date of Consultation March 14, 2025 Assessment & Plan (1) Carotid stenosis, right: Pt with R ICAS approx 70% by CTA. SHe is asymptomatic from this. Recommend outpt f/u in office in 6 months with surveillance carotid US. Pt is agreeable. Office will call to schedule. History of Present Illness Reason for Consultation: ICAS Attending Physician: Ry Milligan MD History of Present Illness 79 yo f with hx of HTN, a fib, pacemaker, anemia, CAD, osteoporosis, depression, asthma, DMII, GERD, SUDHAKAR, restless legs syndrome, pulmonary nodules, multinodular goiter, hyperlipidemia, admitted after multiple falls at home, seen in consultation today for R ICAS. Pt states she cannot pinpoint why she has fallen at home, although she does admit poor balance. Denies dizziness, amaurosis, unilateral weakness numbness or tingling, facial droop, difficulty speaking, chest pain, palpitations, abd pain, SOB, N/V, rest pain, claudication, other complaints. CTA neck demonstrates approx 70% stenosis R ICA, less than 50% L ICA. Allergies Allergy/AdvReac Type Severity Reaction Status Date / Time codeine Allergy Intermediate Vomiting & Verified 03/02/25 08:05 hallucinations sulfamethoxazole Allergy Intermediate Rash Verified 03/02/25 08:05 [From Bactrim] trimethoprim [From Bactrim] Allergy Intermediate Rash Verified 03/02/25 08:05 Home Medications Medication Instructions Recorded Confirmed Type loratadine 10 mg tablet (Allergy 10 mg PO QAM 06/29/20 03/10/25 History Relief (loratadine)) nitroglycerin 0.4 mg sublingual 0.4 mg sublingual Q5M PRN chest 04/29/23 03/10/25 Rx tablet pain #25 tabs clopidogrel 75 mg tablet 75 mg PO DAILY 06/09/23 03/10/25 History albuterol sulfate 90 mcg/actuation 2 puff inhalation QID PRN 01/27/24 03/10/25 Rx aerosol inhaler (Ventolin HFA) shortness of breath or wheezing #18 grams fenofibrate 54 mg tablet 54 mg PO QAM #90 tabs 03/29/24 03/10/25 Rx mirabegron 50 mg tablet,extended 50 mg PO QAM #90 tabs 05/28/24 03/10/25 Rx release 24 hr (Myrbetriq) rosuvastatin 40 mg tablet (Crestor) 40 mg PO DAILY #90 tabs 07/13/24 03/10/25 Rx bupropion HCl 300 mg 24 hr tablet, 300 mg PO QAM #90 tabs 07/19/24 03/10/25 Rx extended release metformin 500 mg tablet 500 mg PO BID #200 tabs 08/04/24 03/10/25 Rx fluticasone fur. 200 mcg-umeclid 1 inh inhalation DAILY #180 ea 08/31/24 03/10/25 Rx 62.5 mcg-vilant 25 mcg inhalat.powder (Trelegy Ellipta) losartan 50 mg tablet 50 mg PO DAILY #90 tabs 09/14/24 03/10/25 Rx ibandronate 150 mg tablet 150 mg PO MONTHLY #3 tabs 09/24/24 03/10/25 Rx montelukast 10 mg tablet 10 mg PO QPM #90 tabs 10/27/24 03/10/25 Rx (Singulair) Auto Titrating CPAP #1 ea 11/15/24 03/10/25 Rx blood sugar diagnostic (Accu-Chek #100 ea 12/04/24 03/10/25 Rx Sandy Plus test strips) blood sugar diagnostic (OneTouch #100 ea 12/28/24 03/10/25 Rx Ultra Test strips) isosorbide mononitrate 30 mg 30 mg PO QAM 01/07/25 03/10/25 History tablet,extended release 24 hr pantoprazole 40 mg tablet,delayed 40 mg PO QAM 01/07/25 03/10/25 History release (Protonix) vitamin B complex 1 tab PO QAM 01/07/25 03/10/25 History ascorbic acid (vitamin C) 500 mg 500 mg PO DAILY 01/14/25 03/10/25 History capsule ferrous sulfate 325 mg (65 mg 325 mg PO DAILY #90 tabs 01/14/25 03/10/25 Rx iron) tablet pramipexole 0.25 mg tablet 0.25 mg PO QPM #60 tabs 01/14/25 03/10/25 Rx magnesium oxide 400 mg PO DAILY 01/20/25 03/10/25 History apixaban 5 mg tablet (Eliquis) 5 mg PO BID #180 tabs 02/25/25 03/10/25 Rx metoprolol succinate 100 mg 100 mg PO BID #60 tabs 02/25/25 03/10/25 Rx tablet,extended release 24 hr lorazepam 0.5 mg tablet 0.5 mg PO TID PRN anxiety or 03/01/25 03/10/25 Rx restless legs #90 tabs venlafaxine 150 mg 150 mg PO .QHS #30 caps 03/02/25 03/10/25 Rx capsule,extended release 24 hr donepezil 5 mg tablet 5 mg PO DAILY #30 tabs 03/04/25 03/10/25 Rx levothyroxine 25 mcg tablet 25 mcg PO DAILY #30 tabs 03/04/25 03/10/25 Rx Patient History Medical History Pericardial effusion PAD (peripheral artery disease) Hypomagnesemia CR (acute kidney injury) Meningioma Pseudoaneurysm of left femoral artery Left groin mass Abdominal distension Diaphoresis Chest discomfort Dyspnea on exertion Abnormal thyroid blood test Cough Close exposure to 2018-nCoV Conjunctivitis Close exposure to 2019-nCoV Cough productive of purulent sputum History of COVID-19 Dx 05/2020 (treated inpatient at [facility]) Asthma Well controlled Closed fracture of right distal fibula Thyroid nodule Osteoporosis Surgical History Hx of cardiac cath 06/05/2023 H/O laminectomy (~1991) cervical laminectomy. full rom S/P right knee arthroscopy History of esophagogastroduodenoscopy (EGD) History of colonoscopy History of cholecystectomy History of corneal transplant R/L Family History Father , age 82 of heart disease. Diabetes Heart disease Hemangioma Glaucoma Asthma Hypertension Mother , age 78 of a "massive" stroke Stroke Other No family history of adverse response to anesthesia Social History Smoking Status: Former smoker Tobacco Type: Cigarettes Age Started Using Tobacco: 14; Age Quit Using Tobacco: 41; packs per day: 0.5; Second Hand Exposure: No; Do You Dip or Chew Tobacco: No; Hx Alcohol Use: No Hx Substance Use: No Preferred Language: Maori Communication Ability: Effective Visual Impairment: No Limitations Hearing Ability: Normal Investment Underwriter Required: No Beliefs That Will Affect Care: None marital status: Current Living Situation: Spouse current occupational status: retired 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 Feels Safe at Home: Yes Dental Care, Regularly: Yes Seatbelt Use: always Assistive Devices: Cane, CPAP, Glasses, Nebulizer and Walker Review of Systems Review of Systems: All systems reviewed & are unremarkable except as noted in HPI & below Physical Exam Constitutional: WD/WN, vitals as above cooperative and comfortable; not in distress Neck: trachea midline Respiratory: normal respiratory effort, lungs clear to auscultation Auscultation: + diminished lung sounds Cardiovascular: Rate/Rhythm: + irregularly irregular Vessels: posterior tibial pulses present, dorsalis pedis pulses present and radial pulses present; + abnormal peripheral pulses Extremities: normal capillary refill Gastrointestinal (Abdomen): Inspection/Auscultation: abdomen normal to inspection and normal bowel sounds Percussion/Palpation: abdomen soft; abdomen nontender Musculoskeletal: no cyanosis or clubbing, extremities motor strength 5/5 Skin: no rashes, warm and dry Neurologic: moves all extremities and awake; no focal motor deficits and not confused Psychiatric: A+Ox3, euthymic affect Results & Data Vital Signs (Past 12 Hours) Vital Signs Temp Pulse Pulse Resp BP Pulse Ox O2 Del Method 03/14/25 07:58 36.4 C L 101 H 20 144/84 H 97 Nebulizer 03/14/25 07:24 106 H 20 90 Room Air 03/14/25 07:15 Room Air 03/14/25 06:00 87 03/14/25 03:44 36.6 C 99 H 18 134/87 91 Room Air 03/13/25 23:28 36.9 C 84 18 124/85 91 Room Air 03/13/25 22:45 98 H 19 94 03/13/25 22:34 Room Air 03/13/25 22:13 102 H 17 92 Room Air 03/13/25 21:55 101 H FiO2 03/14/25 07:58 03/14/25 07:24 03/14/25 07:15 03/14/25 06:00 03/14/25 03:44 03/13/25 23:28 03/13/25 22:45 21 03/13/25 22:34 03/13/25 22:13 03/13/25 21:55
--- NOTE | 2025-03-14 10:16 | Cardiology Progress Note ---
Date of Service March 14, 2025 Assessment & Plan (1) Atrial fibrillation with rapid ventricular response: Plan: She has persistent atrial fibrillation. Possibly permanent. Will continue with a rate control strategy as she seems as few symptoms associated with the arrhythmia itself. She did have some hypotension when intravenous diltiazem was started initially, but blood pressures have been elevated recently. Losartan on hold. I think the addition of diltiazem would be more appropriate especially in light of normal systolic function. Will start her on low-dose diltiazem today. Will discontinue digoxin. Will monitor her response. Continue systemic anticoagulation. (2) CAD (coronary atherosclerotic disease): Plan: -s/p RCA BERNARDO x 2, May 2023 -Continue medical management. 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 Normal device interrogation performed today. Attempts to pace terminate what initially appeared to be in atrial flutter were unsuccessful. Later evaluation suggested this is more consistent with an atrial fibrillation. Admission and Anticipated Discharge Date Admission Date: March 10, 2025 Subjective This morning the patient claims be feeling well. She did not report any sense of palpitation. She is been ambulatory with a walker. She denied any breathing difficulty. No chest pain. Review of Systems Review of Systems: Per HPI Physical Exam Physical Exam: She is alert and oriented x3. Mood affect appear normal. She seemed to answer questions appropriately but at times appeared confused. HEENT: Sclerae are anicteric. Pupils are equal and reactive to light and accommodation. Extraocular movements were intact. Neuro: Cranial nerves intact Lungs: Rhonchorous breath sounds, more on the left than the right. No expiratory wheezing. No rales. Normal respiratory effort. Cardiac: The rhythm was irregular. S1 and S2 were normal. There are no murm urs on examination. The PMI was not markedly displaced on palpation. Extremities: Patient has bilateral radial pulses that are equal in intensity. There is no evidence cyanosis or clubbing. Skin: There are no rashes noted on examination today. Results & Data Vital Signs (Past 12 Hours) Vital Signs Temp Pulse Pulse Resp BP Pulse Ox O2 Del Method 03/14/25 07:58 36.4 C L 101 H 20 144/84 H 97 Nebulizer 03/14/25 07:24 106 H 20 90 Room Air 03/14/25 07:15 Room Air 03/14/25 06:00 87 03/14/25 03:44 36.6 C 99 H 18 134/87 91 Room Air 03/13/25 23:28 36.9 C 84 18 124/85 91 Room Air 03/13/25 22:45 98 H 19 94 03/13/25 22:34 Room Air FiO2 03/14/25 07:58 03/14/25 07:24 03/14/25 07:15 03/14/25 06:00 03/14/25 03:44 03/13/25 23:28 03/13/25 22:45 21 03/13/25 22:34 Laboratory Results Abnormal Lab Results 03/14/25 06:58 WBC 6.93 RBC 3.76 L Hgb 11.1 L Hct 35.4 L MCV 94.1 MCH 29.5 MCHC 31.4 L RDW Std Deviation 50.4 H RDW Coeff of Ambreen 14.5 Plt Count 342 MPV 9.4 Sodium 139 Potassium 3.9 Chloride 108 H Carbon Dioxide 27 Anion Gap 4 BUN 11 Creatinine 0.86 Est Cr Clr Drug Dosing 46.6 eGFR 69.10 BUN/Creatinine Ratio 12.8 Glucose 126 H Calcium 9.2 Magnesium 1.8 PG Care Time/CCT Total # of Minutes Spent Total Time Spent with Patient: Total time spent is greater than 50% in coordination of care (as documented) at patient's floor/unit and/or counseling patient: Coding Level of Care Code 19856 SUB INP/OBS CARE 2/35MIN Diagnoses Atrial fibrillation with rapid ventricular response I48.91 CAD (coronary atherosclerotic disease) I25.10 Status post placement of cardiac pacemaker Z95.0 CPT Codes Dual Lead Pacemaker System - 15527 ([id number])
--- NOTE | 2025-03-14 10:45 | Hospitalist Progress Note ---
Date of Service March 14, 2025 Assessment & Plan (1) Ambulatory dysfunction: (2) Confusion: (3) Enterovirus infection: (4) Asthma: (5) Atrial fibrillation with rapid ventricular response: (6) Hypertension: (7) CAD (coronary atherosclerotic disease): (8) Type 2 diabetes mellitus: Plan 79-year-old female with history of atrial fibrillation on Eliquis anticoagulation, hypertension, CAD, diabetes presenting with progressive confusion and ambulatory dysfunction, acutely worsening over the last 3 to 4 days. Patient with 4 falls prior to arrival with minor head trauma. Found to have enterovirus infection. #Ambulatory dysfunction #Acute metabolic encephalopathy, concern for underlying cognitive impairment patient with functional decline over the last month, acutely worsening over the last 3 to 4 days. Suspect enterovirus infection contributing to her acute decline. Patient did sustain 4 falls prior to arrival resulting in mild head trauma. She does have a cane and walker and uses them both occasionally. CT of the head with mild cerebral atrophy and periventricular white matter changes consistent with chronic small vessel disease. Unremarkable ventricles. -B12 is 633 on March 04, 2025 -TSH 6.539, free T4 0.84: Patient was started on levothyroxine 25 mcg p.o. daily approximately a week ago -Patient was started on Aricept 5 mg p.o. daily by her PCP -Outpatient carotid Dopplers from 03/08/2025 showed bilateral carotid atherosclerotic disease with calcified plaque seen mainly at the carotid bulb causing less than 50% stenosis and radiology recommended CTA/MRA for detailed luminal assessment. -MRI of the brain shows no acute infarction, shows atrophy versus mild NPH -Neurology saw the patient I did not feel any additional testing regarding possibility of normal pressure hydrocephalus and felt if this diagnosis was entertained this can be done as an outpatient anyways and recommended outpatient neurology follow-up. They recommended checking CK, B12, Lyme antibody titer and aldolase -CK is 44, B12 766, Lyme screening antibody test: Negative, aldolase sent: Results pending -Urinalysis is negative for infection - Delirium precautions - Monitor orthostatic vital signs - Patient will need follow-up with neurology as outpatient on discharge #Right ICA stenosis Seen on MRA of the neck: 50 to 70% stenosis CT of the neck shows 50 to 70% stenosis Vascular surgery consulted, Dr. Rondon's team saw the patient, recommended no urgent or emergent intervention and for patient to follow-up in 6 months time with repeat carotid ultrasound prior to appointment for monitoring. #Enterovirus infection #Asthma #Acute Bronchitis Chest x-ray on admission with no evidence of pneumonia and procalcitonin less than 0.02 - Sputum cultures growing Staph aureus, sensitivities pending, continue doxycycline 100 mg p.o. twice daily (day 1) Tylenol as needed Flutter valve, incentive spirometry - Xopenex nebs as needed - Continue Singulair Continue home umeclidinium and vilanterol, fluticasone - Chest x-ray from 03/13/2025 shows possibility of pneumonia, patient lung exam is clear, she is not hypoxic, afebrile with normal procalcitonin. Will repeat chest x-ray as I doubt patient has pneumonia #Atrial fibrillation with RVR #Coronary artery disease status post RCA BERNARDO x 2 in May 2023 #History of tachycardia/bradycardia syndrome status post pacemaker in January 2025 #Essential hypertension Outpatient fulfillment representative Dr. Baig -Echocardiogram from 01/05/2025 shows EF of 60 to 65%, no regional wall motion abnormalities, moderate concentric LVH, severe left atrial dilatation, mild mitral regurgitation and indeterminate diastolic dysfunction. 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 She has followed up with cardiology and is overall doing well. She is compliant with her metoprolol as well as her apixaban Continue apixaban 5 mg p.o. twice daily Continue metoprolol succinate 100 mg p.o. twice daily - Continue Plavix and statin -Continue Imdur with hold parameters for orthostatic vital signs -Hold losartan since blood pressure is low normal after checking orthostatics: Patient will need losartan on discharge especially since cardiology started her on Cardizem p.o. - Cardiology following the patient: Patient has received IV digoxin and was transition to oral digoxin which was stopped today by cardiology. - Dr. Baig saw patient today, stopped digoxin and started patient on Cardizem 30 mg p.o. every 6 hours for better rate control. Await further cardiology recommendations #Hypothyroidism -TSH 6.539, free T4 0.84 - Continue levothyroxine 50 mcg p.o. daily # Anxiety and depression Continue venlafaxine 150 mg Continue bupropion 300 mg p.o. every morning Patient has not used any Ativan as needed since admission. Given cognitive impairment issues and recurrent falls, this is not a good medication for patient to be on and will stop oral Ativan. #Restless leg syndrome #Continue Mirapex 0.25 mg every afternoon #GERD Continue Protonix 40 mg p.o. every morning #Hypothyroidism Continue Synthroid CODE STATUS: DNR/DNI DVT prophylaxis: Patient on apixaban Discharge planning to acute rehab based on PT recommendations. Discharge likely in the next 24 hours based on cardiology recommendations Care plan discussed with patient, nursing staff and patient's son Javy ([phone]) updated at bedside with patient's permission Admission and Anticipated Discharge Date Admission Date: March 10, 2025 Subjective Patient seen and examined Labs reviewed Radiology reviewed Son Javy at bedside Patient states she feels much better today, improvement in her cough and sputum production. She is afebrile, denies any chest pain, shortness of breath. She is not requiring oxygen. Overall feels much better than admission. She denies any palpitations. Cardiology saw her and have started her on oral Cardizem for better heart rate control Physical Exam Physical Exam: General: No acute distress Psych: Awake and alert, oriented to place and person HEENT: Anicteric sclera, moist oral mucosa CVS: Irregular rate and rhythm, pacemaker palpable Lungs: Bilateral air entry, no wheezing noted Abdomen: Soft, nontender, no rebound, no guarding Ext: No lower extremity edema, no calf tenderness Neuro: No focal motor deficits noted Results & Data Results & Data Vital Signs (Past 12 Hours) Vital Signs Temp Pulse Pulse Resp BP Pulse Ox O2 Del Method 03/14/25 07:58 36.4 C L 101 H 20 144/84 H 97 Nebulizer 03/14/25 07:24 106 H 20 90 Room Air 03/14/25 07:15 Room Air 03/14/25 06:00 87 03/14/25 03:44 36.6 C 99 H 18 134/87 91 Room Air 03/13/25 23:28 36.9 C 84 18 124/85 91 Room Air 03/13/25 22:45 98 H 19 94 FiO2 03/14/25 07:58 03/14/25 07:24 03/14/25 07:15 03/14/25 06:00 03/14/25 03:44 03/13/25 23:28 03/13/25 22:45 21 Laboratory Results 03/13/25 13:21 Gram Stain - Final Sputum, Expectorated Sputum Culture - Preliminary Staphylococcus aureus 03/14/25 06:58 WBC 6.93 RBC 3.76 L Hgb 11.1 L Hct 35.4 L MCV 94.1 MCH 29.5 MCHC 31.4 L RDW Std Deviation 50.4 H RDW Coeff of Ambreen 14.5 Plt Count 342 MPV 9.4 Sodium 139 Potassium 3.9 Chloride 108 H Carbon Dioxide 27 Anion Gap 4 BUN 11 Creatinine 0.86 Est Cr Clr Drug Dosing 46.6 eGFR 69.10 BUN/Creatinine Ratio 12.8 Glucose 126 H Calcium 9.2 Magnesium 1.8 PG Care Time/CCT Total # of Minutes Spent Total Time Spent with Patient: Total time spent is greater than 50% in coordination of care (as documented) at patient's floor/unit and/or counseling patient: Coding Level of Care Code 75790 SUB INP/OBS CARE 3/50MIN Diagnoses Ambulatory dysfunction R26.2 Confusion R41.0 Enterovirus infection B34.1 Asthma J45.909 Atrial fibrillation with rapid ventricular response I48.91 Hypertension I10 CAD (coronary atherosclerotic disease) I25.10 Type 2 diabetes mellitus E11.9
[2025-03-14] MEDS: dilTIAZem HCL 30 MG TAB PO SCH (10:52)
--- NOTE | 2025-03-14 11:05 | Hospitalist Progress Note ---
Date of Service March 14, 2025 Assessment & Plan (1) Ambulatory dysfunction: (2) Confusion: (3) Enterovirus infection: (4) Asthma: (5) Atrial fibrillation with rapid ventricular response: (6) Hypertension: (7) CAD (coronary atherosclerotic disease): (8) Type 2 diabetes mellitus: Plan 79-year-old female with history of atrial fibrillation on Eliquis anticoagulation, hypertension, CAD, diabetes presenting with progressive confusion and ambulatory dysfunction, acutely worsening over the last 3 to 4 days. Patient with 4 falls prior to arrival with minor head trauma. Found to have enterovirus infection. #Ambulatory dysfunction #Acute metabolic encephalopathy, concern for underlying cognitive impairment patient with functional decline over the last month, acutely worsening over the last 3 to 4 days. Suspect enterovirus infection contributing to her acute decline. Patient did sustain 4 falls prior to arrival resulting in mild head trauma. She does have a cane and walker and uses them both occasionally. CT of the head with mild cerebral atrophy and periventricular white matter changes consistent with chronic small vessel disease. Unremarkable ventricles. -B12 is 633 on March 04, 2025 -TSH 6.539, free T4 0.84: Patient was started on levothyroxine 25 mcg p.o. daily approximately a week ago -Patient was started on Aricept 5 mg p.o. daily by her PCP -Outpatient carotid Dopplers from 03/08/2025 showed bilateral carotid atherosclerotic disease with calcified plaque seen mainly at the carotid bulb causing less than 50% stenosis and radiology recommended CTA/MRA for detailed luminal assessment. -MRI of the brain shows no acute infarction, shows atrophy versus mild NPH -Neurology saw the patient I did not feel any additional testing regarding possibility of normal pressure hydrocephalus and felt if this diagnosis was entertained this can be done as an outpatient anyways and recommended outpatient neurology follow-up. They recommended checking CK, B12, Lyme antibody titer and aldolase -CK is 44, B12 766, Lyme screening antibody test: Negative, aldolase sent: Results pending -Urinalysis is negative for infection - Delirium precautions - Monitor orthostatic vital signs #Right ICA stenosis Seen on MRA of the neck: 50 to 70% stenosis CT of the neck shows 50 to 70% stenosis Vascular surgery consulted, Dr. Rondon to see patient tomorrow #Enterovirus infection #Asthma #Acute Bronchitis Chest x-ray on admission with no evidence of pneumonia and procalcitonin less than 0.02 -Patient now with yellow sputum production: Check sputum culture, start do xycycline 100 mg p.o. twice daily for acute bronchitis Tylenol as needed Flutter valve, incentive spirometry - Xopenex nebs as needed - Continue Singulair Continue home umeclidinium and vilanterol, fluticasone #Atrial fibrillation with RVR #Coronary artery disease status post RCA BERNARDO x 2 in May 2023 #History of tachycardia/bradycardia syndrome status post pacemaker in January 2025 #Essential hypertension Outpatient ointment mill tender Dr. Baig -Echocardiogram from 01/05/2025 shows EF of 60 to 65%, no regional wall motion abnormalities, moderate concentric LVH, severe left atrial dilatation, mild mitral regurgitation and indeterminate diastolic dysfunction. 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 She has followed up with cardiology and is overall doing well. She is compliant with her metoprolol as well as her apixaban Continue apixaban 5 mg p.o. twice daily Continue metoprolol succinate 100 mg p.o. twice daily - Continue Plavix and statin -Continue Imdur with hold parameters for orthostatic vital signs -Hold losartan for now since blood pressure is low normal - Cardiology following the patient: Patient has received IV digoxin and transition to oral digoxin per cardiology recommendations - Discussed with cardiology Dr. Gallo today: Initially Dr. Gallo recommended IV Cardizem but patient's blood pressure dropped and heart rate was in the 80s. At this point Dr. Gallo has recommended holding off on IV Cardizem infusion and will have Dr. Baig follow-up with patient regarding AV node ablation #Hypothyroidism -TSH 6.539, free T4 0.84 - Continue levothyroxine 50 mcg p.o. daily # Anxiety and depression Continue venlafaxine 150 mg Continue bupropion 300 mg p.o. every morning Continue Ativan 0.5 mg p.o. 3 times daily as needed for anxiety or restless legs. #Restless leg syndrome #Continue Mirapex 0.25 mg every afternoon #GERD Continue Protonix 40 mg p.o. every morning #Hypothyroidism Continue Synthroid CODE STATUS: DNR/DNI DVT prophylaxis: Patient on apixaban Discharge planning to acute rehab based on PT recommendations. Discharge likely in the next 48 to 72 hours based on cardiology follow-up regarding ablation, vascular surgery consult and recommendations Care plan discussed with patient, nursing staff and patient's son Javy ([phone]) updated on the phone with patient's permission Admission and Anticipated Discharge Date Admission Date: March 10, 2025 Physical Exam Physical Exam: General: No acute distress Psych: Awake and alert, oriented to place and person HEENT: Anicteric sclera, moist oral mucosa CVS: Irregular rate and rhythm, pacemaker palpable Lungs: Bilateral air entry, no wheezing noted Abdomen: Soft, nontender, no rebound, no guarding Ext: No lower extremity edema, no calf tenderness Neuro: No focal motor deficits noted Results & Data Results & Data Vital Signs (Past 12 Hours) Vital Signs Temp Pulse Pulse Resp BP Pulse Ox O2 Del Method 03/14/25 07:58 36.4 C L 101 H 20 144/84 H 97 Nebulizer 03/14/25 07:24 106 H 20 90 Room Air 03/14/25 07:15 Room Air 03/14/25 06:00 87 03/14/25 03:44 36.6 C 99 H 18 134/87 91 Room Air 03/13/25 23:28 36.9 C 84 18 124/85 91 Room Air PG Care Time/CCT Total # of Minutes Spent Total Time Spent with Patient: Total time spent is greater than 50% in coordination of care (as documented) at patient's floor/unit and/or counseling patient: Coding Diagnoses Ambulatory dysfunction R26.2 Confusion R41.0 Enterovirus infection B34.1 Asthma J45.909 Atrial fibrillation with rapid ventricular response I48.91 Hypertension I10 CAD (coronary atherosclerotic disease) I25.10 Type 2 diabetes mellitus E11.9
--- NOTE | 2025-03-14 18:16 | Ultrasound Report ---
INDICATION: Pain and swelling. TECHNIQUE: Sonographic grayscale and color Doppler evaluation of the right elbow. COMPARISON: No relevant priors. FINDINGS/IMPRESSION: Complex fluid collection measuring 3.5 x 5.6 x 1.4 cm. No significantly increased blood flow. Findings favored to represent hematoma, less likely abscess. Follow-up as relevant. Electronically signed by Chance Telles 03-14-2025 6:16 PM
[2025-03-14] MEDS: MAGNESIUM OXIDE 400 MG TAB PO SCH (21:11)
[2025-03-15 07:38] LABS: Hematocrit (blood only) 36.1 % (37.0-47.0); Hemoglobin 11.5 g/dl (12.0-16.0); Mean Corpuscular Hemoglobin 29.8 pg (25.0-34.0); Mean Corpuscular Hgb Conc 31.9 g/dL (32.0-36.0); Mean Corpuscular Volume 93.5 fL (80.0-100.0); Mean Platelet Volume 9.2 fL (9.4-12.4); Platelet Count 350 K/uL (130-400); RDW Coefficient of Variation 14.6 % (11.5-14.5); RDW Standard Deviation 50.1 fL (36.4-46.3); Red Blood Count 3.86 M/uL (4.20-5.40); White Blood Count 6.91 K/ul (4.8-10.8)
[2025-03-15 07:55] LABS: Albumin Globulin Ratio 1.2 (0.9-2); Albumin Level 3.8 gm/dl (3.4-5.0); BUN Creatinine Ratio 14.3 (10-20); Bilirubin,Total 0.5 mg/dl (0.2-1.0); Calcium 9.3 mg/dl (8.6-10.3); Creatinine Clr Calc Pharmacy 47.7 ml/min; Globulin 3.2 gm/dl (2.5-4.0); Magnesium 1.8 mg/dl (1.7-2.4); Potassium 4.2 mmol/L (3.5-5.1)
--- NOTE | 2025-03-15 10:17 | Hospitalist Progress Note ---
Date of Service March 15, 2025 Assessment & Plan (1) Ambulatory dysfunction: Plan: patient with functional decline over the last month, acutely worsening over the last 3 to 4 days. Suspect enterovirus infection contributing to her acute decline. Patient did sustain 4 falls prior to arrival resulting in mild head trauma. She does have a cane and walker and uses them both occasionally. CT of the head with mild cerebral atrophy and periventricular white matter changes consistent with chronic small vessel disease. Unremarkable ventricles. -B12 is 633 on March 04, 2025 -TSH 6.539, free T4 0.84: Patient was started on levothyroxine 25 mcg p.o. daily approximately a week ago -Patient was started on Aricept 5 mg p.o. daily by her PCP -Outpatient carotid Dopplers from 03/08/2025 showed bilateral carotid atherosclerotic disease with calcified plaque seen mainly at the carotid bulb causing less than 50% stenosis and radiology recommended CTA/MRA for detailed luminal assessment. -MRI of the brain shows no acute infarction, shows atrophy versus mild NPH -Neurology saw the patient I did not feel any additional testing regarding possibility of normal pressure hydrocephalus and felt if this diagnosis was entertained this can be done as an outpatient anyways and recommended outpatient neurology follow-up. They recommended checking CK, B12, Lyme antibody titer and aldolase -CK is 44, B12 766, Lyme screening antibody test: Negative, aldolase sent: Results pending -Urinalysis is negative for infection - Delirium precautions - Monitor orthostatic vital signs - Patient will need follow-up with neurology as outpatient on discharge -Seen on MRA of the neck: 50 to 70% stenosis CT of the neck shows 50 to 70% stenosis Vascular surgery consulted, Dr. Rondon's team saw the patient, recommended no urgent or emergent intervention and for patient to follow-up in 6 months time with repeat carotid ultrasound prior to appointment for monitoring. (2) Confusion: (3) Enterovirus infection: Plan: Chest x-ray on admission with no evidence of pneumonia and procalcitonin less than 0.02 - Sputum cultures growing Staph aureus, sensitivities pending, continue doxycycline 100 mg p.o. twice daily (day 1) Tylenol as needed Flutter valve, incentive spirometry - Xopenex nebs as needed - Continue Singulair Continue home umeclidinium and vilanterol, fluticasone - Chest x-ray from 03/13/2025 shows possibility of pneumonia, patient lung exam is clear, she is not hypoxic, afebrile with normal procalcitonin (4) Asthma: (5) Atrial fibrillation with rapid ventricular response: Plan: -Echocardiogram from 01/05/2025 shows EF of 60 to 65%, no regional wall motion abnormalities, moderate concentric LVH, severe left atrial dilatation, mild mitral regurgitation and indeterminate diastolic dysfunction. 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 She has followed up with cardiology and is overall doing well. She is compliant with her metoprolol as well as her apixaban Continue apixaban 5 mg p.o. twice daily Continue metoprolol succinate 100 mg p.o. twice daily - Continue Plavix and statin -Continue Imdur with hold parameters for orthostatic vital signs -Hold losartan since blood pressure is low normal after checking orthostatics: Patient will need losartan on discharge especially since cardiology started her on Cardizem p.o. - Cardiology following the patient: Patient has received IV digoxin and was transition to oral digoxin which was stopped today by cardiology. - Dr. Baig saw patient, stopped digoxin and started patient on Cardizem 30 mg p.o. every 6 hours for better rate control. (6) Hypertension: (7) CAD (coronary atherosclerotic disease): (8) Type 2 diabetes mellitus: Plan 79-year-old female with history of atrial fibrillation on Eliquis anticoagulation, hypertension, CAD, diabetes presenting with progressive confusion and ambulatory dysfunction, acutely worsening over the last 3 to 4 days. Patient with 4 falls prior to arrival with minor head trauma. Found to have enterovirus infection. CODE STATUS: DNR/DNI DVT prophylaxis: Patient on apixaban Discharge planning to acute rehab based on PT recommendations. Awaiting authorization, spoke with case management. Admission and Anticipated Discharge Date Admission Date: March 10, 2025 Subjective No events overnight, pt resting comfortably in bed. Review of Systems Review of Systems: CONST: Negative for fever, body aches and chills. HENT: Negative for neck pain/stiffness, headache, congestion, sore throat, s welling. EYES: Negative for discharge/pain or vision changes. RESP: Negative for cough/hemoptysis and shortness of breath. CV: Negative chest pain, difficulty breathing, palpitations. ABD: Negative pain, nausea, vomiting. : Negative increase frequency, dysuria, blood in urine or stool. MUSC: Negative for muscle aches, edema. SKIN: Negative rash, lesions/sores. NEURO: Negative headache, dizziness, weakness. Physical Exam Physical Exam: GENERAL APPEARANCE NAD, activity normal for age, well developed/ well nourished, no cyanosis, pallor, or diaphoresis. EYES lids/conjunctiva normal. EARS/NOSE/THROAT Mucous membranes moist, nares normal, lips/teeth normal uvula midline without oral pharyngeal erythema, exudate or swelling TMs normal bilaterally. No lymphangitis/lymphedema. HEAD/NECK normocephalic atraumatic, no facial trauma, neck is supple. RESPIRATORY respiratory effort normal, speaks in full sentences, no tripod position, no accessory muscle use. Lungs clear to auscultation without rhonchi, wheezes, rales CARDIAC Regular rate and rhythm, no edema. ABDOMINAL Soft, ND/NT. No evidence of fluid wave. No pulsatile masses on exam, rebound tenderness, [place] sign or pain over Mcburney's point. MUSCLES/EXTREMITIES No abnormal range of motion, no swelling. SKIN Warm, pink and dry. No rashes, dermatoses, petechiae or lesions. NEUROLOGICAL Speech is clear and appropriate. Normal level of consciousness. Gait and coordination are normal. 5/5 strength in all extremities. PSYCH Normal mood and affect. Judgement/competence is appropriate Results & Data Results & Data Vital Signs (Past 12 Hours) Vital Signs Temp Pulse Pulse Resp BP Pulse Ox O2 Del Method 03/15/25 07:37 89 03/15/25 07:26 36.7 C 93 H 18 125/71 92 Room Air 03/15/25 07:17 99 H 18 94 Room Air 03/15/25 03:02 36.6 C 94 H 18 126/82 90 Room Air 03/14/25 22:59 36.6 C 115 H 18 142/89 H 91 Room Air 03/14/25 22:40 94 H 17 91 Room Air PG Care Time/CCT Total # of Minutes Spent Total Time Spent with Patient: Total time spent is greater than 50% in coordination of care (as documented) at patient's floor/unit and/or counseling patient: Coding Level of Care Code 45361 SUB INP/OBS CARE 2/35MIN Diagnoses Ambulatory dysfunction R26.2 Confusion R41.0 Enterovirus infection B34.1 Asthma J45.909 Atrial fibrillation with rapid ventricular response I48.91 Hypertension I10 CAD (coronary atherosclerotic disease) I25.10 Type 2 diabetes mellitus E11.9
--- NOTE | 2025-03-15 10:29 | XRay Report ---
XR chest 2V PA/lateral CLINICAL HISTORY: ?pneumonia COMPARISON STUDY: 03/13/2025 FINDINGS: Stable pacemaker. Stable cardiomegaly with mild pulmonary vascular congestion. There is per sistent but improved mild stranding opacity at the left lung base. No effusion or consolidation other smith. IMPRESSION: 1. Mild CHF. 2. Mild stranding opacity left lung base, improved. ACT 112: Negative or not required by law. Electronically signed by: Pranav Stephenson M.D. 03/15/2025 10:27 AM
--- NOTE | 2025-03-15 13:34 | Cardiology Progress Note ---
Date of Service March 15, 2025 Assessment & Plan (1) Atrial fibrillation with rapid ventricular response: Plan: She has persistent atrial fibrillation. Possibly permanent. Will continue with a rate control strategy as she seems as few symptoms associated with the arrhythmia itself. Diltiazem was started yesterday. She seems to be tolerating the current dose but we have yet to achieve adequate rate control. Will increase the diltiazem dose to 60 mg every 6 hours. Continue systemic anticoagulation. (2) CAD (coronary atherosclerotic disease): Plan: -s/p RCA BERNARDO x 2, May 2023 -Continue medical management. 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 Normal device interrogation performed today. Attempts to pace terminate what initially appeared to be in atrial flutter were unsuccessful. Later evaluation suggested this is more consistent with an atrial fibrillation. Admission and Anticipated Discharge Date Admission Date: March 10, 2025 Subjective This morning the patient clinically feeling well. She reports ambulating with a walker. She did not report any symptoms of dizziness or dyspnea. No sense of palpitations or chest pain currently. Review of Systems Review of Systems: Per HPI Physical Exam Physical Exam: She is alert and oriented x3. Mood affect appear normal. She seemed to answer questions appropriately. HEENT: Sclerae are anicteric. Pupils are equal and reactive to light and accommodation. Extraocular movements were intact. Neuro: Cranial nerves intact Lungs: Lungs are clear bilaterally. Normal respiratory effort. No rales. No expiratory wheezing. Cardiac: The rhythm was irregular. S1 and S2 were normal. There are no murmurs on examination. The PMI was not markedly displaced on palpation. Extremities: Patient has bilateral radial pulses that are equal in intensity. There is no evidence cyanosis or clubbing. No edema Skin: There are no rashes noted on examination today. Results & Data Vital Signs (Past 12 Hours) Vital Signs Temp Pulse Pulse Resp BP Pulse Ox O2 Del Method 03/15/25 11:11 36.8 C 103 H 18 119/76 93 Room Air 03/15/25 09:20 Room Air 03/15/25 07:37 89 03/15/25 07:26 36.7 C 93 H 18 125/71 92 Room Air 03/15/25 07:17 99 H 18 94 Room Air 03/15/25 03:02 36.6 C 94 H 18 126/82 90 Room Air Laboratory Results Abnormal Lab Results 03/15/25 06:50 WBC 6.91 RBC 3.86 L Hgb 11.5 L Hct 36.1 L MCV 93.5 MCH 29.8 MCHC 31.9 L RDW Std Deviation 50.1 H RDW Coeff of Ambreen 14.6 H Plt Count 350 MPV 9.2 L Sodium 139 Potassium 4.2 Chloride 107 Carbon Dioxide 27 Anion Gap 5 BUN 12 Creatinine 0.84 Est Cr Clr Drug Dosing 47.7 eGFR 71.08 BUN/Creatinine Ratio 14.3 Glucose 119 H Calcium 9.3 Magnesium 1.8 Total Bilirubin 0.5 AST 14 ALT 8 Alkaline Phosphatase 38 Total Protein 7.0 Albumin 3.8 Globulin 3.2 Albumin/Globulin Ratio 1.2 PG Care Time/CCT Total # of Minutes Spent Total Time Spent with Patient: Total time spent is greater than 50% in coordination of care (as documented) at patient's floor/unit and/or counseling patient: Coding Level of Care Code 76354 SUB INP/OBS CARE 2/35MIN Diagnoses Atrial fibrillation with rapid ventricular response I48.91 CAD (coronary atherosclerotic disease) I25.10 Status post placement of cardiac pacemaker Z95.0
[2025-03-15] MEDS: dilTIAZem HCl 60 MG TAB PO SCH (15:49)
--- NOTE | 2025-03-16 09:28 | Cardiology Progress Note ---
Date of Service March 16, 2025 Assessment & Plan (1) Atrial fibrillation with rapid ventricular response: Plan: She has persistent atrial fibrillation. Possibly permanent. She is demonstrated an improvement in overall rate control with higher doses of dil tiazem. Given her limited mobility and absence of associated symptoms, I think at this point we could settle on her current rate control regimen which is metoprolol succinate 100 mg twice daily and convert her to a single daily dose of diltiazem 240 mg. She should continue on her systemic anticoagulation. I will be satisfied if she is otherwise stable for discharge and she can follow-up in our clinic for continued management. (2) CAD (coronary atherosclerotic disease): Plan: -s/p RCA BERNARDO x 2, May 2023 -Continue medical management. 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 Normal device interrogation performed today. Attempts to pace terminate what initially appeared to be in atrial flutter were unsuccessful. Later evaluation suggested this is more consistent with an atrial fibrillation. Admission and Anticipated Discharge Date Admission Date: March 10, 2025 Subjective This morning patient clinically feeling well. She reports ambulating with a walker around the [place] yesterday. She denied associated dizziness or breathing difficulty. She is not been aware of any palpitations. No dizziness with changing positions either. Review of Systems Review of Systems: Per HPI Physical Exam Physical Exam: She is alert and oriented x3. Mood affect appear normal. She seemed to answer questions appropriately. HEENT: Sclerae are anicteric. Pupils are equal and reactive to light and accommodation. Extraocular movements were intact. Neuro: Cranial nerves intact Lungs: Lungs are clear bilaterally. Normal respiratory effort. No rales. No expiratory wheezing. Cardiac: The rhythm was irregular. S1 and S2 were normal. There are no murmurs on examination. The PMI was not markedly displaced on palpation. Extremities: Patient has bilateral radial pulses that are equal in intensity. There is no evidence cyanosis or clubbing. No edema Skin: There are no rashes noted on examination today. Results & Data Vital Signs (Past 12 Hours) Vital Signs Temp Pulse Pulse Resp BP Pulse Ox O2 Del Method 03/16/25 07:43 36.7 C 83 16 119/75 93 Room Air 03/16/25 07:09 64 03/16/25 06:57 102 H 18 93 Room Air 03/16/25 04:00 36.5 C 83 18 108/71 93 Room Air 03/16/25 00:00 36.8 C 87 18 114/74 91 Room Air 03/15/25 22:04 71 Laboratory Results Abnormal Lab Results 03/13/25 05:39 Aldolase 3.9 PG Care Time/CCT Total # of Minutes Spent Total Time Spent with Patient: Total time spent is greater than 50% in coordination of care (as documented) at patient's floor/unit and/or counseling patient: Coding Level of Care Code 79072 SUB INP/OBS CARE 2/35MIN Diagnoses Atrial fibrillation with rapid ventricular response I48.91 CAD (coronary atherosclerotic disease) I25.10 Status post placement of cardiac pacemaker Z95.0
--- NOTE | 2025-03-16 11:25 | Hospitalist Progress Note ---
Date of Service March 16, 2025 Assessment & Plan (1) Ambulatory dysfunction: Plan: patient with functional decline over the last month, acutely worsening over the last 3 to 4 days. Suspect enterovirus infection contributing to her acute decline. Patient did sustain 4 falls prior to arrival resulting in mild head trauma. She does have a cane and walker and uses them both occasionally. CT of the head with mild cerebral atrophy and periventricular white matter changes consistent with chronic small vessel disease. Unremarkable ventricles. -B12 is 633 on March 04, 2025 -TSH 6.539, free T4 0.84: Patient was started on levothyroxine 25 mcg p.o. daily approximately a week ago -Patient was started on Aricept 5 mg p.o. daily by her PCP -Outpatient carotid Dopplers from 03/08/2025 showed bilateral carotid atherosclerotic disease with calcified plaque seen mainly at the carotid bulb causing less than 50% stenosis and radiology recommended CTA/MRA for detailed luminal assessment. -MRI of the brain shows no acute infarction, shows atrophy versus mild NPH -Neurology saw the patient I did not feel any additional testing regarding possibility of normal pressure hydrocephalus and felt if this diagnosis was entertained this can be done as an outpatient anyways and recommended outpatient neurology follow-up. They recommended checking CK, B12, Lyme antibody titer and aldolase -CK is 44, B12 766, Lyme screening antibody test: Negative, aldolase sent: Results pending -Urinalysis is negative for infection - Delirium precautions - Monitor orthostatic vital signs - Patient will need follow-up with neurology as outpatient on discharge -Seen on MRA of the neck: 50 to 70% stenosis CT of the neck shows 50 to 70% stenosis Vascular surgery consulted, Dr. Rondon's team saw the patient, recommended no urgent or emergent intervention and for patient to follow-up in 6 months time with repeat carotid ultrasound prior to appointment for monitoring. (2) Confusion: (3) Enterovirus infection: Plan: Chest x-ray on admission with no evidence of pneumonia and procalcitonin less than 0.02 - Sputum cultures growing Staph aureus, sensitivities pending, continue doxycycline 100 mg p.o. twice daily (day 1) Tylenol as needed Flutter valve, incentive spirometry - Xopenex nebs as needed - Continue Singulair Continue home umeclidinium and vilanterol, fluticasone - Chest x-ray from 03/13/2025 shows possibility of pneumonia, patient lung exam is clear, she is not hypoxic, afebrile with normal procalcitonin (4) Asthma: (5) Atrial fibrillation with rapid ventricular response: Plan: -Echocardiogram from 01/05/2025 shows EF of 60 to 65%, no regional wall motion abnormalities, moderate concentric LVH, severe left atrial dilatation, mild mitral regurgitation and indeterminate diastolic dysfunction. 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 She has followed up with cardiology and is overall doing well. She is compliant with her metoprolol as well as her apixaban Continue apixaban 5 mg p.o. twice daily Continue metoprolol succinate 100 mg p.o. twice daily - Continue Plavix and statin -Continue Imdur with hold parameters for orthostatic vital signs -Hold losartan since blood pressure is low normal after checking orthostatics: Patient will need losartan on discharge especially since cardiology started her on Cardizem p.o. - Cardiology following the patient: Patient has received IV digoxin and was transition to oral digoxin which was stopped today by cardiology. - Dr. Baig saw patient, stopped digoxin and started patient on Cardizem 30 mg p.o. every 6 hours for better rate control. (6) Hypertension: (7) CAD (coronary atherosclerotic disease): (8) Type 2 diabetes mellitus: Plan 79-year-old female with history of atrial fibrillation on Eliquis anticoagulation, hypertension, CAD, diabetes presenting with progressive confusion and ambulatory dysfunction, acutely worsening over the last 3 to 4 days. Patient with 4 falls prior to arrival with minor head trauma. Found to have enterovirus infection. CODE STATUS: DNR/DNI DVT prophylaxis: Patient on apixaban Discharge planning to acute rehab based on PT recommendations. Awaiting authorization, spoke with case management. Admission and Anticipated Discharge Date Admission Date: March 10, 2025 Subjective No events overnight. Pt resting comfortably in bed. Review of Systems Review of Systems: CONST: Negative for fever, body aches and chills. HENT: Negative for neck pain/stiffness, headache, congestion, sore throat, s welling. EYES: Negative for discharge/pain or vision changes. RESP: Negative for cough/hemoptysis and shortness of breath. CV: Negative chest pain, difficulty breathing, palpitations. ABD: Negative pain, nausea, vomiting. : Negative increase frequency, dysuria, blood in urine or stool. MUSC: Negative for muscle aches, edema. SKIN: Negative rash, lesions/sores. NEURO: Negative headache, dizziness, weakness. Physical Exam Physical Exam: GENERAL APPEARANCE NAD, activity normal for age, well developed/ well nourished, no cyanosis, pallor, or diaphoresis. EYES lids/conjunctiva normal. EARS/NOSE/THROAT Mucous membranes moist, nares normal, lips/teeth normal uvula midline without oral pharyngeal erythema, exudate or swelling TMs normal bilaterally. No lymphangitis/lymphedema. HEAD/NECK normocephalic atraumatic, no facial trauma, neck is supple. RESPIRATORY respiratory effort normal, speaks in full sentences, no tripod position, no accessory muscle use. Lungs clear to auscultation without rhonchi, wheezes, rales CARDIAC Regular rate and rhythm, no edema. ABDOMINAL Soft, ND/NT. No evidence of fluid wave. No pulsatile masses on exam, rebound tenderness, Norwood sign or pain over Mcburney's point. MUSCLES/EXTREMITIES No abnormal range of motion, no swelling. SKIN Warm, pink and dry. No rashes, dermatoses, petechiae or lesions. NEUROLOGICAL Speech is clear and appropriate. Normal level of consciousness. Gait and coordination are normal. 5/5 strength in all extremities. PSYCH Normal mood and affect. Judgement/competence is appropriate Results & Data Results & Data Vital Signs (Past 12 Hours) Vital Signs Temp Pulse Pulse Resp BP Pulse Ox O2 Del Method 03/16/25 11:21 36.7 C 86 18 124/71 92 Room Air 03/16/25 08:10 Room Air 03/16/25 07:43 36.7 C 83 16 119/75 93 Room Air 03/16/25 07:09 64 03/16/25 06:57 102 H 18 93 Room Air 03/16/25 04:00 36.5 C 83 18 108/71 93 Room Air 03/16/25 00:00 36.8 C 87 18 114/74 91 Room Air PG Care Time/CCT Total # of Minutes Spent Total Time Spent with Patient: Total time spent is greater than 50% in coordination of care (as documented) at patient's floor/unit and/or counseling patient: Coding Level of Care Code 21315 SUB INP/OBS CARE 2/35MIN Diagnoses Ambulatory dysfunction R26.2 Confusion R41.0 Enterovirus infection B34.1 Asthma J45.909 Atrial fibrillation with rapid ventricular response I48.91 Hypertension I10 CAD (coronary atherosclerotic disease) I25.10 Type 2 diabetes mellitus E11.9
[2025-03-17 07:51] VITALS: TEMP 98.1
--- NOTE | 2025-03-17 09:12 | Hospitalist Progress Note ---
Date of Service March 17, 2025 Assessment & Plan (1) Ambulatory dysfunction: Plan: patient with functional decline over the last month, acutely worsening over the last 3 to 4 days. Suspect enterovirus infection contributing to her acute decline. Patient did sustain 4 falls prior to arrival resulting in mild head trauma. She does have a cane and walker and uses them both occasionally. CT of the head with mild cerebral atrophy and periventricular white matter changes consistent with chronic small vessel disease. Unremarkable ventricles. -B12 is 633 on March 04, 2025 -TSH 6.539, free T4 0.84: Patient was started on levothyroxine 25 mcg p.o. daily approximately a week ago -Patient was started on Aricept 5 mg p.o. daily by her PCP -Outpatient carotid Dopplers from 03/08/2025 showed bilateral carotid atherosclerotic disease with calcified plaque seen mainly at the carotid bulb causing less than 50% stenosis and radiology recommended CTA/MRA for detailed luminal assessment. -MRI of the brain shows no acute infarction, shows atrophy versus mild NPH -Neurology saw the patient I did not feel any additional testing regarding possibility of normal pressure hydrocephalus and felt if this diagnosis was entertained this can be done as an outpatient anyways and recommended outpatient neurology follow-up. They recommended checking CK, B12, Lyme antibody titer and aldolase -CK is 44, B12 766, Lyme screening antibody test: Negative, aldolase sent: Results pending -Urinalysis is negative for infection - Delirium precautions - Monitor orthostatic vital signs - Patient will need follow-up with neurology as outpatient on discharge -Seen on MRA of the neck: 50 to 70% stenosis CT of the neck shows 50 to 70% stenosis Vascular surgery consulted, Dr. Rondon's team saw the patient, recommended no urgent or emergent intervention and for patient to follow-up in 6 months time with repeat carotid ultrasound prior to appointment for monitoring. (2) Confusion: (3) Enterovirus infection: Plan: Chest x-ray on admission with no evidence of pneumonia and procalcitonin less than 0.02 - Sputum cultures growing Staph aureus, sensitivities pending, continue doxycycline 100 mg p.o. twice daily (day 1) Tylenol as needed Flutter valve, incentive spirometry - Xopenex nebs as needed - Continue Singulair Continue home umeclidinium and vilanterol, fluticasone - Chest x-ray from 03/13/2025 shows possibility of pneumonia, patient lung exam is clear, she is not hypoxic, afebrile with normal procalcitonin (4) Asthma: (5) Atrial fibrillation with rapid ventricular response: Plan: -Echocardiogram from 01/05/2025 shows EF of 60 to 65%, no regional wall motion abnormalities, moderate concentric LVH, severe left atrial dilatation, mild mitral regurgitation and indeterminate diastolic dysfunction. 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 She has followed up with cardiology and is overall doing well. She is compliant with her metoprolol as well as her apixaban Continue apixaban 5 mg p.o. twice daily Continue metoprolol succinate 100 mg p.o. twice daily - Continue Plavix and statin -Continue Imdur with hold parameters for orthostatic vital signs -Hold losartan since blood pressure is low normal after checking orthostatics: Patient will need losartan on discharge especially since cardiology started her on Cardizem p.o. - Cardiology following the patient: Patient has received IV digoxin and was transition to oral digoxin which was stopped today by cardiology. - Dr. Baig saw patient, stopped digoxin and started patient on Cardizem 30 mg p.o. every 6 hours for better rate control. (6) Hypertension: (7) CAD (coronary atherosclerotic disease): (8) Type 2 diabetes mellitus: Plan 79-year-old female with history of atrial fibrillation on Eliquis anticoagulation, hypertension, CAD, diabetes presenting with progressive confusion and ambulatory dysfunction, acutely worsening over the last 3 to 4 days. Patient with 4 falls prior to arrival with minor head trauma. Found to have enterovirus infection. CODE STATUS: DNR/DNI DVT prophylaxis: Patient on apixaban Discharge planning to acute rehab based on PT recommendations. Awaiting authorization, spoke with case management. Admission and Anticipated Discharge Date Admission Date: March 10, 2025 Subjective No events overnight. Pt resting comfortably in bed. Review of Systems Review of Systems: CONST: Negative for fever, body aches and chills. HENT: Negative for neck pain/stiffness, headache, congestion, sore throat, swelling. EYES: Negative for discharge/pain or vision changes. RESP: Negative for cough/hemoptysis and shortness of breath. CV: Negative chest pain, difficulty breathing, palpitations. ABD: Negative pain, nausea, vomiting. : Negative increase frequency, dysuria, blood in urine or stool. MUSC: Negative for muscle aches, edema. SKIN: Negative rash, lesions/sores. NEURO: Negative headache, dizziness, weakness. Physical Exam Physical Exam: GENERAL APPEARANCE NAD, activity normal for age, well developed/ well nourished, no cyanosis, pallor, or diaphoresis. EYES lids/conjunctiva normal. EARS/NOSE/THROAT Mucous membranes moist, nares normal, lips/teeth normal uvula midline without oral pharyngeal erythema, exudate or swelling TMs normal bilaterally. No lymphangitis/lymphedema. HEAD/NECK normocephalic atraumatic, no facial trauma, neck is supple. RESPIRATORY respiratory effort normal, speaks in full sentences, no tripod position, no accessory muscle use. Lungs clear to auscultation without rhonchi, wheezes, rales CARDIAC Regular rate and rhythm, no edema. ABDOMINAL Soft, ND/NT. No evidence of fluid wave. No pulsatile masses on exam, rebound tenderness, Norwood sign or pain over Mcburney's point. MUSCLES/EXTREMITIES No abnormal range of motion, no swelling. SKIN Warm, pink and dry. No rashes, dermatoses, petechiae or lesions. NEUROLOGICAL Speech is clear and appropriate. Normal level of consciousness. Gait and coordination are normal. 5/5 strength in all extremities. PSYCH Normal mood and affect. Judgement/competence is appropriate Results & Data Results & Data Vital Signs (Past 12 Hours) Vital Signs Temp Pulse Resp BP Pulse Ox O2 Del Method 03/17/25 07:58 Room Air 03/17/25 07:50 36.7 C 77 19 134/94 91 Room Air 03/17/25 07:18 69 18 93 Room Air 03/17/25 01:55 36.8 C 82 16 112/68 95 Room Air 03/16/25 23:32 36.9 C 74 17 119/81 93 Room Air 03/16/25 22:22 90 18 94 Room Air PG Care Time/CCT Total # of Minutes Spent Total Time Spent with Patient: Total time spent is greater than 50% in coordination of care (as documented) at patient's floor/unit and/or counseling patient: Coding Level of Care Code 44438 SUB INP/OBS CARE 2/35MIN Diagnoses Ambulatory dysfunction R26.2 Confusion R41.0 Enterovirus infection B34.1 Asthma J45.909 Atrial fibrillation with rapid ventricular response I48.91 Hypertension I10 CAD (coronary atherosclerotic disease) I25.10 Type 2 diabetes mellitus E11.9
[2025-03-17 11:50] VITALS: RESP 18
--- NOTE | 2025-03-17 14:00 | Discharge Summary ---
Discharge Summary Date of Service March 17, 2025 Principal Dx & Hospital Course #1 = Principal Diagnosis (1) Ambulatory dysfunction: patient with functional decline over the last month, acutely worsening over the last 3 to 4 days. Suspect enterovirus infection contributing to her acute decline. Patient did sustain 4 falls prior to arrival resulting in mild head trauma. She does have a cane and walker and uses them both occasionally. CT of the head with mild cerebral atrophy and periventricular white matter changes consistent with chronic small vessel disease. Unremarkable ventricles. -B12 is 633 on March 04, 2025 -TSH 6.539, free T4 0.84: Patient was started on levothyroxine 25 mcg p.o. daily approximately a week ago -Patient was started on Aricept 5 mg p.o. daily by her PCP -Outpatient carotid Dopplers from 03/08/2025 showed bilateral carotid atherosclerotic disease with calcified plaque seen mainly at the carotid bulb causing less than 50% stenosis and radiology recommended CTA/MRA for detailed luminal assessment. -MRI of the brain shows no acute infarction, shows atrophy versus mild NPH -Neurology saw the patient I did not feel any additional testing regarding possibility of normal pressure hydrocephalus and felt if this diagnosis was entertained this can be done as an outpatient anyways and recommended outpatient neurology follow-up. They recommended checking CK, B12, Lyme antibody titer and aldolase -CK is 44, B12 766, Lyme screening antibody test: Negative, aldolase sent: Results pending -Urinalysis is negative for infection - Delirium precautions - Monitor orthostatic vital signs - Patient will need follow-up with neurology as outpatient on discharge -Seen on MRA of the neck: 50 to 70% stenosis CT of the neck shows 50 to 70% stenosis Vascular surgery consulted, Dr. Rondon's team saw the patient, recommended no urgent or emergent intervention and for patient to follow-up in 6 months time with repeat carotid ultrasound prior to appointment for monitoring. (2) Confusion: (3) Enterovirus infection: Chest x-ray on admission with no evidence of pneumonia and procalcitonin less than 0.02 - Sputum cultures growing Staph aureus, sensitivities pending, continue doxycycline 100 mg p.o. twice daily (day 1) Tylenol as needed Flutter valve, incentive spirometry - Xopenex nebs as needed - Continue Singulair Continue home umeclidinium and vilanterol, fluticasone - Chest x-ray from 03/13/2025 shows possibility of pneumonia, patient lung exam is clear, she is not hypoxic, afebrile with normal procalcitonin (4) Asthma: (5) Atrial fibrillation with rapid ventricular response: -Echocardiogram from 01/05/2025 shows EF of 60 to 65%, no regional wall motion abnormalities, moderate concentric LVH, severe left atrial dilatation, mild mitral regurgitation and indeterminate diastolic dysfunction. 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 She has followed up with cardiology and is overall doing well. She is compliant with her metoprolol as well as her apixaban Continue apixaban 5 mg p.o. twice daily Continue metoprolol succinate 100 mg p.o. twice daily - Continue Plavix and statin -Continue Imdur with hold parameters for orthostatic vital signs -Hold losartan since blood pressure is low normal after checking orthostatics: Patient will need losartan on discharge especially since cardiology started her on Cardizem p.o. - Cardiology following the patient: Patient has received IV digoxin and was transition to oral digoxin which was stopped today by cardiology. - Dr. Baig saw patient, stopped digoxin and started patient on Cardizem 30 mg p.o. every 6 hours for better rate control. (6) Hypertension: (7) CAD (coronary atherosclerotic disease): (8) Type 2 diabetes mellitus: Plan 79-year-old female with history of atrial fibrillation on Eliquis anticoagulat ion, hypertension, CAD, diabetes presenting with progressive confusion and ambulatory dysfunction, acutely worsening over the last 3 to 4 days. Patient with 4 falls prior to arrival with minor head trauma. Found to have enterovirus infection. CODE STATUS: DNR/DNI DVT prophylaxis: Patient on apixaban Discharge planning to acute rehab based on PT recommendations. Awaiting authorization, spoke with case management. Admission HPI Per Admitting Provider Heidi James is a pleasant 71-year-old female with history of atrial fibrillation on Eliquis anticoagulation, peripheral arterial disease, hypertension, CAD, hyperlipidemia, diabetes and restless leg syndrome from home with 3 to 4 days of worsening confusion as well as gait instability and frequent falls. Patient's son is at bedside and provides ancillary history. He reports that patient has had increased forgetfulness, repeating conversations and brief episodes of confusion (for example, thought that her son was her today). These symptoms have been ongoing for the last week but have increased in frequency specifically over the last 3 to 4 days. She is scheduled to see Neurology for these issuesto have MRI/MRA on 03/14/2025 - concern for TIA vs Parkinson's? Patient has also had increased gait instability over the last 3 to 4 days. She has a cane and a walker at home but frequently does not use them. She has fallen 4 times today. She has hit her head on the floor at least twice and sustained a skin tear and a hematoma to her right arm. No loss of consciousness. No chest pain/palpitations/dizziness or lightheadedness preceding or following the fall. She reports that she simply "loses her balance" and feels occasionally that her legs give out beneath her. Patient has had some baseline gait instability which has been increasing over the last month but acutely worse over the last 3 to 4 days. She denies fever, chills, chest pain, palpitations. She has a mild cough and stable shortness of breath. She did have some nausea and vomiting 4 days ago which has since resolved. No additional complaints at this time In the ER she is afebrile, atrial fibrillation with elevated rate, presently 118 bpm Discharge Exam GENERAL APPEARANCE NAD, activity normal for age, well developed/ well nourished, no cyanosis, pallor, or diaphoresis. EYES lids/conjunctiva normal. EARS/NOSE/THROAT Mucous membranes moist, nares normal, lips/teeth normal uvula midline without oral pharyngeal erythema, exudate or swelling TMs normal bilaterally. No lymphangitis/lymphedema. HEAD/NECK normocephalic atraumatic, no facial trauma, neck is supple. RESPIRATORY respiratory effort normal, speaks in full sentences, no tripod position, no accessory muscle use. Lungs clear to auscultation without rhonchi, wheezes, rales CARDIAC Regular rate and rhythm, no edema. ABDOMINAL Soft, ND/NT. No evidence of fluid wave. No pulsatile masses on exam, rebound tenderness, Norwood sign or pain over Mcburney's point. MUSCLES/EXTREMITIES No abnormal range of motion, no swelling. SKIN Warm, pink and dry. No rashes, dermatoses, petechiae or lesions. NEUROLOGICAL Speech is clear and appropriate. Normal level of consciousness. Gait and coordination are normal. 5/5 strength in all extremities. PSYCH Normal mood and affect. Judgement/competence is appropriate Discharge Plan Discharge Items Patient Disposition: Home - Self-Care Reason For Visit: FALLS Discharge Diagnosis: UTI, delerium Activity: Resume your previous activity Non-emergency contact: Primary Care Provider Call non-emergency contact if: you have any medication questions Follow-up/Referrals: Baljinder Hunt MD [Physician] - Rico Arevalo MD [Primary Care Provider] - Greg Baig MD [Physician] - Gonzalo Rondon MD [Physician] - Diet: Carb Consistent or DM2 Addtl Attending Provider Instructions: Follow up with PMD Pending Studies at Discharge: No Stand-Alone Forms: My [employer], Smoking Cessation Medications and DC Order Prescriptions: New diltiazem HCl 60 mg Tablet 60 mg PO Q6H Qty: 90 0RF Continued albuterol sulfate [Ventolin HFA] 90 mcg/actuation HFA aerosol inhaler 2 puff INH QID PRN (Reason: shortness of breath or wheezing) Qty: 18 5RF Rx Instructions: Please substitute least expensive albuterol inhaler. fenofibrate 54 mg tablet 54 mg PO QAM Qty: 90 3RF Myrbetriq 50 mg tablet extended release 24 hr 50 mg PO QAM Qty: 90 3RF rosuvastatin [Crestor] 40 mg tablet 40 mg PO DAILY Qty: 90 3RF bupropion HCl 300 mg tablet extended release 24 hr 300 mg PO QAM Qty: 90 3RF metformin 500 mg tablet 500 mg PO BID Qty: 200 3RF Trelegy Ellipta 200-62.5-25 mcg blister with device 1 inh inhalation DAILY Qty: 180 3RF Rx Instructions: rinse mouth and gargle after usage losartan 50 mg tablet 50 mg PO DAILY Qty: 90 3RF ibandronate 150 mg tablet 150 mg PO MONTHLY Qty: 3 3RF Rx Instructions: as directed. montelukast [Singulair] 10 mg tablet 10 mg PO QPM Qty: 90 3RF (DME) Accu-Chek Sandy Plus test strp Strip See Rx Instructions .Route Qty: 100 3RF Rx Instructions: check once daily As directed DX:E11.9 (DME) OneTouch Ultra Test Strip See Rx Instructions .Route Qty: 100 4RF Rx Instructions: onetouch ultra in vitro strip; check sugars once a day; DX E11.9 Eliquis 5 mg tablet 5 mg PO BID Qty: 180 3RF lorazepam 0.5 mg tablet 0.5 mg PO TID PRN (Reason: anxiety or restless legs) Qty: 90 0RF Patient Comments: Per daughter she takes every night at bedtime donepezil 5 mg tablet 5 mg PO DAILY Qty: 30 11RF Rx Instructions: take with breakfast levothyroxine 25 mcg tablet 25 mcg PO DAILY Qty: 30 5RF nitroglycerin 0.4 mg tablet, sublingual 0.4 mg sublingual Q5M PRN (Reason: chest pain) Qty: 25 0RF Rx Instructions: do not exceed 3 doses per episode clopidogrel 75 mg tablet 75 mg PO DAILY (DME) Auto Titrating CPAP Misc See Rx Instructions .Route Qty: 1 0RF Rx Instructions: 4- 15 pressure metoprolol succinate 100 mg tablet extended release 24 hr 100 mg PO BID Qty: 60 5RF venlafaxine 150 mg capsule,extended release 24hr 150 mg PO .QHS Qty: 30 11RF ascorbic acid (vitamin C) 500 mg capsule 500 mg PO DAILY pramipexole 0.25 mg tablet 0.25 mg PO QPM Qty: 60 5RF Rx Instructions: administer 1 hour before leg restlessness starts ferrous sulfate 325 mg (65 mg iron) tablet 325 mg PO DAILY Qty: 90 1RF loratadine [Allergy Relief (loratadine)] 10 mg tablet 10 mg PO QAM vitamin B complex Tablet 1 tab PO QAM isosorbide mononitrate 30 mg tablet extended release 24 hr 30 mg PO QAM pantoprazole [Protonix] 40 mg tablet,delayed release (DR/EC) 40 mg PO QAM magnesium oxide 400 mg magnesium Tablet 400 mg PO DAILY Krames/Other Patient Handouts: A1C, Managing Type 2 Diabetes Admission Data Admit Date/Time: 03/10/25 23:46 Attending Provider: Dayron Cortez Admit Provider: Jeniffer Hussein Primary Care Provider: Rico Arevalo Other Providers: Jeniffer Hussein; Lisandro Gallo; Ne Adam; Baljinder Hunt; Gonzalo Rondon; [facility]; [facility] Hospital Stay Data Consultations 03/10/25 23:04 ED Decision to Admit Stat 03/11/25 12:37 Consult Cardiology Routine 03/12/25 08:19 Consult Neurology Routine 03/12/25 10:14 Consult Vascular Surgery Routine Diagnostic Imagining Performed 03/10/25 19:31 CT cervical spine wo con Stat CT head/brain wo con Stat 03/11/25 11:51 MR angio neck wo/w con Urgent MRI Angio Head [MR angio head wo con] Urgent MRI Brain [MR brain wo/w con] Urgent 03/12/25 10:19 CTA neck with con [CT angio neck with con] Routine 03/14/25 16:17 US arm [US extremity non-vascular ltd] Routine Pending Results Patient Have Any Pending Studies at Discharge: No Discharge Instructions Given to Patient (Per Discharging Provider) Follow up with PMD Total Time Total Time Spent Total Time Spent (In Minutes): 50 Coding Level of Care Code 80464 INP/OBS DISCH >30 MIN Diagnoses Ambulatory dysfunction R26.2 Confusion R41.0 Enterovirus infection B34.1 Asthma J45.909 Atrial fibrillation with rapid ventricular response I48.91 Hypertension I10 CAD (coronary atherosclerotic disease) I25.10 Type 2 diabetes mellitus E11.9
[2025-03-17 14:41] VITALS: BP 134/94
[2025-03-17 15:46] VITALS: O2SAT 98
[2025-03-17 18:03] VITALS: PULSE 105
== END 2025-03-17 18:16 | disposition home health service (06) | DRG 202 ==
LOC: ED 19:16 → 2W 23:46 → SUATTDRO 23:46 → 2W 03-11 01:10
DX: R29.6 Repeated falls; R26.9 Unspecified abnormalities of gait and mobility; G93.41 Metabolic encephalopathy; E83.42 Hypomagnesemia; I49.5 Sick sinus syndrome; I10 Essential (primary) hypertension; E78.5 Hyperlipidemia, unspecified; Z66 Do not resuscitate; J45.909 Unspecified asthma, uncomplicated; J20.9 Acute bronchitis, unspecified; J45.901 Unspecified asthma with (acute) exacerbation; Z95.0 Presence of cardiac pacemaker; D50.9 Iron deficiency anemia, unspecified; I25.10 Atherosclerotic heart disease of native coronary artery without angina pectoris; G25.81 Restless legs syndrome; Z88.2 Allergy status to sulfonamides; I67.82 Cerebral ischemia; Z88.5 Allergy status to narcotic agent; I65.21 Occlusion and stenosis of right carotid artery; E11.51 Type 2 diabetes mellitus with diabetic peripheral angiopathy without gangrene; K21.9 Gastro-esophageal reflux disease without esophagitis; Z95.5 Presence of coronary angioplasty implant and graft; Z79.02 Long term (current) use of antithrombotics/antiplatelets; I48.19 Other persistent atrial fibrillation; B34.8 Other viral infections of unspecified site; B34.1 Enterovirus infection, unspecified

== ENCOUNTER 2025-03-29 12:19 | Inpatient (IN) ==
--- NOTE | 2025-03-29 13:12 | Emergency Department Note ---
Impression & Plan Infection due to parainfluenza virus 3, Atrial flutter with rapid ventricular response, Hypomagnesemia ED Provider Note NAME: PRANAY HYMAN AGE: 79 SEX: F : 1945 ARRIVES VIA: Walk-In INFORMANT: Patient ED PROVIDER(S): Delonte Lemos MD CHIEF COMPLAINT: Congestion, weakness, confusion PLAN: Disposition: Admit MEDICAL DECISION MAKING: The patient is a 79-year-old woman with past medical history of atrial fibrillation on Eliquis, history of TIA, hypertension, hyperlipidemia, Graves' disease, SUDHAKAR on CPAP who presents to the emergency department via walk-in accompanied by her for evaluation of sinus congestion and cough with generalized weakness and malaise/disorientation over the past 24-48 hours. On presentation, the patient is in npo acute distress, afebrile with heart in the 110s-120s in atrial fibrillation, O2 89% on RA placed on 2L nasal cannula and vital signs otherwise stable. She appears clinically dry. She exhibits boggy nasal turbinates. EKG demonstrates atrial fibrillation with RVR without overt acute ischemia. Chest x-ray with interstitial opacities which are nonspecific and may be consistent with mild pulmonary edema versus infection per my preliminary review. WBC, H/H and platelets within normal limits. Chemistry without metabolic acidosis. Magnesium 1.3 with IV repletion provided. LFTs without significant abnormality. High sensitivity troponin 9.7, within normal limits. BNP is 650, nonspecific and in setting of patient's atrial fibrillation with RVR. TSH was normal limits. Procalcitonin was not elevated. UA without evidence of infection. Respiratory BioFire was positive for parainfluenza 3. Given the patient's mild hypoxia in the setting of parainfluenza infection the patient and her agree plan for admission for further management. IV diltiazem administered for rate control. Case was discussed with Dr. Vaughan, [facility] [place], [facility] hospital[place] service to evaluate the patient for admission. Further management per admitting team. Triage Nursing notes reviewed and agree them. Prior/external medical records reviewed Vital Signs: reviewed Differential diagnosis: Infection, dehydration, metabolic abnormality, hypo/hyperglycemia, electrolyte disturbance, anemia, hypoxia, cardiac sources, intracerebral event, toxicologic, neurologic, as well as other pathologies. ER treatment provided: See below. Diagnostics interpreted by me: ECG: Atrial fibrillation with RVR, 118 bpm, no ectopy, nonspecific ST abnormality, no overt ST elevation or depression, QTc 484, QRS 88. Cardiac Monitoring: An order for continuous cardiac monitoring was placed and demonstrated Atrial fibrillation with RVR, 118 bpm, no ectopy Laboratory studies: See below Imaging studies: See below Consultation(s): Case was discussed with Dr. Vaughan, [facility] hospital[place], who will evaluate the patient for admission. HPI: Per MDM. ROS: See above HPI for pertinent positives & negatives. A total of 10 systems reviewed and were otherwise negative. VITALS:See Below PHYSICAL EXAMINATION: GENERAL: Awake, alert, fatigued-appearing, in no distress HENT: Normocephalic, atraumatic. Boggy nasal turbinates. Oropharynx unremarkable. EYES: Normal conjunctiva. Sclera non-icteric. NECK: Supple. No nuchal rigidity. FROM. No JVD. RESPIRATORY: Clear to auscultation. CARDIAC: Tachycardic rate, irregular rhythm. Extremities warm and well perfused. Pulses equal. ABDOMEN: Soft, non-distended. No tenderness to palpation. No rebound or guarding. MUSCULOSKELETAL: Chest examination reveals no tenderness. The back is symmetrical on inspection without obvious abnormality. There is no CVA tenderness to palpation. No joint edema. LOWER EXTREMITIES: Calves are equal size bilaterally and non-tender. No edema. No discoloration. NEURO: Normal sensorium. No sensory or motor deficits noted. SKIN: No rash or jaundice noted. Delonte Lemos MD Past Med/Surg History Problem List (Updated 03/30/25 @ 11:25 by Hugo Hicks PA-C) (HFpEF) heart failure with preserved ejection fraction Hypomagnesemia (Acute) Infection due to parainfluenza virus 3 (Acute) Parainfluenza infection Opacity of lung on imaging study Recurrent UTI Carotid stenosis, right Chronic cerebral ischemia Confusion TIA (transient ischemic attack) Urinary frequency Anticoagulant long-term use Atrial fibrillation with rapid ventricular response SSS (sick sinus syndrome) Mitral regurgitation Constipation Hypoxia (Acute) Hematoma of scalp (Acute) Recurrent falls (Acute) Sinus bradycardia Atrial flutter with rapid ventricular response (Acute) Asymptomatic bacteriuria Fracture of proximal phalanx of digit of left hand Paroxysmal atrial fibrillation with RVR Iron deficiency anemia Lung nodules S/P coronary artery stent placement Memory loss Paroxysmal atrial fibrillation Osteoporosis Vitamin D deficiency (Acute) Back pain, chronic (Acute) Allergic rhinitis (Acute) Osteoarthritis of right knee Microalbuminuria Depression (Acute) Anxiety (Acute) Multinodular goiter Type 2 diabetes mellitus (Acute) NIDDM GERD (gastroesophageal reflux disease) (Acute) Graves disease (Acute) Euthyroid per 01/31/21 thyroid studies -- no medications/issues currently, under surveillance by PCP Hyperlipidemia (Acute) Moderate obstructive sleep apnea (Acute) CPAP Pulmonary nodules (Acute) Restless legs syndrome (Acute) Medical History Hypomagnesemia Ambulatory dysfunction Elevated brain natriuretic peptide (BNP) level Enterovirus infection Rhinovirus infection Cough Shortness of breath Recurrent falls Mild cognitive disorder CAD (coronary atherosclerotic disease) Hypertension Asthma Pericardial effusion PAD (peripheral artery disease) Hypomagnesemia CR (acute kidney injury) Meningioma Pseudoaneurysm of left femoral artery Left groin mass Abdominal distension Diaphoresis Chest discomfort Dyspnea on exertion Abnormal thyroid blood test Cough Close exposure to 2019-nCoV Conjunctivitis Close exposure to 2019-nCoV Cough productive of purulent sputum History of COVID-19 Dx 05/2020 (treated inpatient at [facility]) Asthma Well controlled Closed fracture of right distal fibula Thyroid nodule Osteoporosis Surgical History Status post placement of cardiac pacemaker Hx of cardiac cath 06/05/2023 H/O laminectomy (~1991) cervical laminectomy. full rom S/P right knee arthroscopy History of esophagogastroduodenoscopy (EGD) History of colonoscopy History of cholecystectomy History of corneal transplant R/L Family History Father , age 82 of heart disease. Diabetes Heart disease Hemangioma Glaucoma Asthma Hypertension Mother , age 78 of a "massive" stroke Stroke Other No family history of adverse response to anesthesia Social History Smoking Status: Former smoker Tobacco Type: Cigarettes Age Started Using Tobacco: 14; Age Quit Using Tobacco: 41; packs per day: 0.5; Second Hand Exposure: No; Do You Dip or Chew Tobacco: No; Hx Alcohol Use: No Hx Substance Use: No Preferred Language: Irish Communication Ability: Impaired Visual Impairment: No Limitations Hearing Ability: Normal Director Immunology Required: No Beliefs That Will Affect Care: None marital status: Current Living Situation: Spouse current occupational status: retired 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 Feels Safe at Home: Yes Dental Care, Regularly: Yes Seatbelt Use: always Assistive Devices: Cane, CPAP, Nebulizer and Walker Allergies Allergies Allergy/AdvReac Type Severity Reaction Status Date / Time sulfamethoxazole Allergy Intermediate Rash Verified 03/29/25 16:09 [From Bactrim] trimethoprim [From Bactrim] Allergy Intermediate Rash Verified 03/29/25 16:09 codeine AdvReac Intermediate Vomiting & Verified 03/29/25 16:09 hallucinations Home Meds Home Medications Medication Instructions Recorded Confirmed loratadine 10 mg tablet (Allergy 10 mg PO QAM 06/29/20 03/29/25 Relief (loratadine)) clopidogrel 75 mg tablet 75 mg PO DAILY 06/09/23 03/29/25 isosorbide mononitrate 30 mg 30 mg PO QAM 01/07/25 03/29/25 tablet,extended release 24 hr vitamin B complex 1 tab PO QAM 01/07/25 03/29/25 ascorbic acid (vitamin C) 500 mg 500 mg PO DAILY 01/14/25 03/29/25 capsule magnesium oxide 400 mg PO DAILY 01/20/25 03/29/25 levothyroxine 50 mcg tablet 50 mcg PO DAILYBB 03/29/25 03/29/25 mupirocin 2 % topical ointment 1 applic topical BID PRN SKIN 03/29/25 03/29/25 IRRITATIONS venlafaxine 150 mg 150 mg PO HS 03/29/25 03/29/25 capsule,extended release 24 hr Previous Rx's Medication Instructions Recorded nitroglycerin 0.4 mg sublingual 0.4 mg sublingual Q5M PRN chest 04/29/23 tablet pain #25 tabs albuterol sulfate 90 mcg/actuation 2 puff inhalation QID PRN 01/27/24 aerosol inhaler (Ventolin HFA) shortness of breath or wheezing #18 grams mirabegron 50 mg tablet,extended 50 mg PO QAM #90 tabs 05/28/24 release 24 hr (Myrbetriq) rosuvastatin 40 mg tablet (Crestor) 40 mg PO DAILY #90 tabs 07/13/24 bupropion HCl 300 mg 24 hr tablet, 300 mg PO QAM #90 tabs 07/19/24 extended release metformin 500 mg tablet 500 mg PO BID #200 tabs 08/04/24 fluticasone fur. 200 mcg-umeclid 1 inh inhalation DAILY #180 ea 08/31/24 62.5 mcg-vilant 25 mcg inhalat.powder (Trelegy Ellipta) losartan 50 mg tablet 50 mg PO DAILY #90 tabs 09/14/24 ibandronate 150 mg tablet 150 mg PO MONTHLY #3 tabs 09/24/24 montelukast 10 mg tablet 10 mg PO QPM #90 tabs 10/27/24 (Singulair) Auto Titrating CPAP #1 ea 11/15/24 blood sugar diagnostic (Accu-Chek #100 ea 12/04/24 Sandy Plus test strips) blood sugar diagnostic (OneTouch #100 ea 12/28/24 Ultra Test strips) ferrous sulfate 325 mg (65 mg 325 mg PO DAILY #90 tabs 01/14/25 iron) tablet pramipexole 0.25 mg tablet 0.25 mg PO QPM #60 tabs 01/14/25 apixaban 5 mg tablet (Eliquis) 5 mg PO BID #180 tabs 02/25/25 lorazepam 0.5 mg tablet 0.5 mg PO TID PRN anxiety or 03/01/25 restless legs #90 tabs donepezil 5 mg tablet 5 mg PO DAILY #30 tabs 03/04/25 fenofibrate 54 mg tablet 54 mg PO QAM #90 tabs 03/18/25 metoprolol succinate 100 mg 100 mg PO BID #60 tabs 03/18/25 tablet,extended release 24 hr pantoprazole 40 mg tablet,delayed 40 mg PO QAM #90 tabs 03/18/25 release (Protonix) diltiazem HCl 240 mg capsule,24 240 mg PO DAILY #30 caps 03/21/25 hr,extended release Results & Data (ED) Vital Signs Vital Signs - 24 hr 03/29/25 12:37 03/29/25 13:25 03/29/25 13:25 Temperature 36.8 C Temperature Source Temporal Artery Scan Pulse Rate 122 H Pulse Rate [Apical] Respiratory Rate 20 Respiratory Effort / Characteristics Non-Labored Spontaneous Respiratory Depth Normal Respiratory Pattern Blood Pressure 120/91 Blood Pressure [Right Arm] Blood Pressure Mean 100 Blood Pressure Mean [Right Arm] Blood Pressure Position Sitting Blood Pressure Position [Right Arm] Pulse Oximetry 90 88 L 95 Oxygen Delivery Method Room Air Room Air Nasal Cannula Oxygen Flow Rate 2 Sepsis Recent Fever Within 48 Hours No Sepsis New/Unexplained Change in Mental Status N/A Sepsis Action Taken by Nursing No Action Required Oxygen Flow Rate - Titration 2 Pulse Oximetry Post Tiitration 94 03/29/25 13:34 03/29/25 13:57 03/29/25 15:00 Temperature Temperature Source Pulse Rate 102 H Pulse Rate [Apical] 107 H 125 H Respiratory Rate 20 20 Respiratory Effort / Characteristics Non-Labored Spontaneous Non-Labored Spontaneous Respiratory Depth Normal Normal Respiratory Pattern Regular Regular Blood Pressure Blood Pressure [Right Arm] 151/97 H 136/96 Blood Pressure Mean Blood Pressure Mean [Right Arm] 115 109 Blood Pressure Position Blood Pressure Position [Right Arm] Sitting Sitting Pulse Oximetry 92 94 Oxygen Delivery Method Nasal Cannula Nasal Cannula Oxygen Flow Rate 2 3 Sepsis Recent Fever Within 48 Hours Sepsis New/Unexplained Change in Mental Status Sepsis Action Taken by Nursing Oxygen Flow Rate - Titration Pulse Oximetry Post Tiitration Laboratory Data Attestation: I reviewed the patient's lab results. 03/30/25 07:29 03/30/25 07:29 Lab Results 03/29/25 03/29/25 03/29/25 Range/Units 13:12 14:57 15:56 WBC 9.02 (4.8-10.8) K/ul RBC 4.31 (4.20-5.40) M/uL Hgb 13.3 (12.0-16.0) g/dl Hct 40.3 (37.0-47.0) % MCV 93.5 (80.0-100.0) fL MCH 30.9 (25.0-34.0) pg MCHC 33.0 (32.0-36.0) g/dL RDW Std Deviation 51.6 H (36.4-46.3) fL RDW Coeff of Ambreen 14.9 H (11.5-14.5) % Plt Count 306 (130-400) K/uL MPV 9.2 L (9.4-12.4) fL Immature Gran % (Auto) 0.4 % Neut % (Auto) 85.0 % Lymph % (Auto) 7.8 % [place] % (Auto) 5.8 % Eos % (Auto) 0.9 % Baso % (Auto) 0.1 % Neut # (Auto) 7.67 H (1.40-6.50) K/uL Lymph # (Auto) 0.70 L (1.20-3.40) K/uL [place] # (Auto) 0.52 (0.11-0.59) K/uL Eos # (Auto) 0.08 (0.00-0.50) K/uL Baso # (Auto) 0.01 (0.00-0.20) K/uL Immature Gran # (Auto) 0.04 (0.01-0.20) K/uL VBG pH 7.42 H (7.36-7.41) VBG pCO2 43 (38-50) mmHg VBG pO2 34 mmHg VBG HCO3 28 mmol/L VBG O2 Saturation < 60.0 % VBG Base Excess 2.9 mEq/L Sodium 135 L (136-145) mmol/L Potassium 4.0 (3.5-5.1) mmol/L Chloride 100 (98-107) mmol/L Carbon Dioxide 27 (21-32) mmol/L Anion Gap 8 (3-11) BUN 16 (6-23) mg/dl Creatinine 0.83 (0.6-1.2) mg/dl Est Cr Clr Drug Dosing Not Reportable eGFR 72.11 BUN/Creatinine Ratio 19.3 (10-20) Glucose 127 H (70-99(Fasting)) mg/dl Calcium 9.9 (8.6-10.3) mg/dl Phosphorus 3.1 (2.5-4.9) mg/dl Magnesium 1.3 L (1.7-2.4) mg/dl Total Bilirubin 0.5 (0.2-1.0) mg/dl AST 14 (13-39) U/L ALT 9 (7-52) U/L Alkaline Phosphatase 36 (34-104) U/L Troponin I High Sens 9.7 (0-14) pg/ml B-Natriuretic Peptide 650 H (0-100) pg/ml Total Protein 8.5 H (6.0-8.3) gm/dl Albumin 4.4 (3.4-5.0) gm/dl Globulin 4.1 H (2.5-4.0) gm/dl Albumin/Globulin Ratio 1.1 (0.9-2) Lipase 18 (11-82) U/L Procalcitonin 0.04 (0-0.5) ng/ml TSH 3.029 (0.300-4.500) uIu/ml Urine Color Yellow Urine Appearance Clear (Clear) Urine pH 7.5 (4.5-7.5) Ur Specific [place] 1.012 (1.000-1.030) Urine Protein Negative (Negative) Urine Glucose (UA) Negative (Negative) Urine Ketones Negative (Negative) Urine Blood Negative (Negative) Urine Nitrite Negative (Negative) Urine Bilirubin Negative (Negative) Urine Urobilinogen Negative (Negative) Ur Leukocyte Esterase Negative (Negative) Adenovirus (PCR) Not Detected (NotDetected) B. pertussis DNA (PCR) Not Detected (NotDetected) B.parapertussis DNA PCR Not Detected (NotDetected) C. pneumoniae DNA (PCR) Not Detected (NotDetected) Coronavirus OC43 (PCR) Not Detected (NotDetected) Coronavirus HKU1 (PCR) Not Detected (NotDetected) Coronavirus 229E (PCR) Not Detected (NotDetected) SARS-CoV-2 (PCR) Not Detected (NotDetected) Coronavirus NL63 (PCR) Not Detected (NotDetected) Human Metapneumovir PCR Not Detected (NotDetected) Influenza Type A (PCR) Not Detected (NotDetected) Influenza Type B (PCR) Not Detected (NotDetected) M. pneumoniae (PCR) Not Detected (NotDetected) Parainfluenza 1 (PCR) Not Detected (NotDetected) Parainfluenza 2 (PCR) Not Detected (NotDetected) Parainfluenza 3 (PCR) DETECTED A (NotDetected) Parainfluenza 4 (PCR) Not Detected (NotDetected) RSV (PCR) Not Detected (NotDetected) Entero/Rhino (PCR) Not Detected (NotDetected) Administered Medications Acetaminophen (Acetaminophen 325 Mg Tab) 650 mg PO Q4H PRN PRN Reason: pain/fever Stop: 04/28/25 16:37 Last Admin: 03/31/25 12:52 Dose: 650 mg Documented By: KAYLEY Apixaban (Apixaban 5 Mg Tablet) 5 mg PO BID DONTE Stop: 04/28/25 20:59 Last Admin: 03/31/25 08:11 Dose: 5 mg Documented By: Admin: 03/30/25 19:52 Dose: 5 mg Documented By: Admin: 03/30/25 09:13 Dose: 5 mg Documented By: Admin: 03/29/25 22:31 Dose: 5 mg Documented By: LMP Ascorbic Acid (Ascorbic Acid 500 Mg Tab) 500 mg PO DAILY DONTE Stop: 04/29/25 08:59 Last Admin: 03/31/25 08:10 Dose: 500 mg Documented By: Admin: 03/30/25 09:14 Dose: 500 mg Documented By: MS Bupropion HCl (Bupropion Xl 300 Mg Tabcr) 300 mg PO QAM DONTE Stop: 04/29/25 08:59 Last Admin: 03/31/25 08:11 Dose: 300 mg Documented By: Admin: 03/30/25 09:14 Dose: 300 mg Documented By: MS Clopidogrel Bisulfate (Clopidogrel Bisulfate 75 Mg Tab) 75 mg PO DAILY DONTE Stop: 04/29/25 08:59 Last Admin: 03/31/25 08:10 Dose: 75 mg Documented By: Admin: 03/30/25 09:14 Dose: 75 mg Documented By: MS Diltiazem HCl (Diltiazem Hcl 240 Mg Capcr) 240 mg PO DAILY DONTE Stop: 04/29/25 08:59 Last Admin: 03/31/25 08:11 Dose: 240 mg Documented By: Admin: 03/30/25 09:14 Dose: 240 mg Documented By: MS Donepezil HCl (Donepezil Hcl 5 Mg Tab) 5 mg PO DAILY DONTE Stop: 04/29/25 08:59 Last Admin: 03/31/25 08:10 Dose: 5 mg Documented By: Admin: 03/30/25 09:14 Dose: 5 mg Documented By: MS Fenofibrate (Fenofibrate Nanocrystallized 48 Mg Tablet) 48 mg PO QAM DONTE Stop: 04/29/25 08:59 Last Admin: 03/31/25 08:12 Dose: 48 mg Documented By: Admin: 03/30/25 09:14 Dose: 48 mg Documented By: MS Ferrous Sulfate (Ferrous Sulfate 325 Mg Tab) 325 mg PO DAILY DONTE Stop: 04/29/25 08:59 Last Admin: 03/31/25 08:10 Dose: 325 mg Documented By: Admin: 03/30/25 09:14 Dose: 325 mg Documented By: MS Fluticasone Furoate (Fluticasone Furoate 100mcg 14 Puffs/Inhaler) 1 puffs INH DAILY DONTE Stop: 04/29/25 08:59 Last Admin: 03/31/25 08:12 Dose: 1 puffs Documented By: Admin: 03/30/25 09:16 Dose: 1 puffs Documented By: Diltiazem HCl 125 mg/ Dextrose 125 mls @ 0 mls/hr IV .Q0M DONTE; Protocol Stop: 04/28/25 17:14 Last Admin: 03/31/25 13:10 Dose: Not Given Documented By: Titration: 03/31/25 11:30 Dose: Infused Documented By: KAYLEY Co-signed By: CRW Titration: 03/31/25 09:42 Dose: 0 mg/hr, 0 mls/hr Documented By: GG Co-signed By: MP Titration: 03/31/25 07:16 Dose: 5 mg/hr, 5 mls/hr Documented By: LMP Co-signed By: KAYLEY Admin: 03/30/25 23:34 Dose: 5 mg/hr, 5 mls/hr Documented By: LMP Co-signed By: MILLER Titration: 03/30/25 21:38 Dose: Infused Documented By: LMP Co-signed By: MILLER Titration: 03/30/25 20:15 Dose: 5 mg/hr, 5 mls/hr Documented By: LMP Co-signed By: MILLER Titration: 03/30/25 20:04 Dose: 10 mg/hr, 10 mls/hr Documented By: LMP Co-signed By: PRECIOUS Titration: 03/30/25 15:36 Dose: 0 mg/hr, 0 mls/hr Documented By: MS Co-signed By: FEDERICO Titration: 03/30/25 12:56 Dose: 5 mg/hr, 5 mls/hr Documented By: MS Co-signed By: FEDERICO Titration: 03/30/25 08:41 Dose: 10 mg/hr, 10 mls/hr Documented By: Co-signed By: FEDERICO Titration: 03/30/25 07:00 Dose: 10 mg/hr, 10 mls/hr Documented By: LEONORA Co-signed By: Admin: 03/30/25 02:38 Dose: 10 mg/hr, 10 mls/hr Documented By: LEONORA Co-signed By: DATangela Titration: 03/30/25 02:38 Dose: Infused Documented By: LMP Co-signed By: DAH Titration: 03/30/25 01:12 Dose: 10 mg/hr, 10 mls/hr Documented By: LEONORA Co-signed By: CLEMENTINA Titration: 03/29/25 19:55 Dose: 15 mg/hr, 15 mls/hr Documented By: SIRENA Co-signed By: JUAN Titration: 03/29/25 18:48 Dose: 10 mg/hr, 10 mls/hr Documented By: FUENTES Co-signed By: SIRENA Admin: 03/29/25 17:43 Dose: 5 mg/hr, 5 mls/hr Documented By: SIRENA Co-signed By: LAW Insulin Aspart (Insulin Aspart Per Unit Charge) 0 units SC ACHS DONTE Stop: 04/29/25 11:44 Last Admin: 03/31/25 11:39 Dose: 5 units Documented By: KAYLEY Co-signed By: MADDI Admin: 03/31/25 08:19 Dose: 4 units Documented By: KAYLEY Co-signed By: OPAL Admin: 03/30/25 20:45 Dose: Not Given Documented By: Admin: 03/30/25 17:06 Dose: 2 units Documented By: Co-signed By: FEDERICO Admin: 03/30/25 12:15 Dose: 3 units Documented By: Co-signed By: MARIVEL Isosorbide Mononitrate (Isosorbide [place] Extended Rel 30 Mg Tabcr) 30 mg PO QAM DONTE Stop: 04/29/25 08:59 Last Admin: 03/31/25 08:10 Dose: 30 mg Documented By: Admin: 03/30/25 09:14 Dose: 30 mg Documented By: Levothyroxine Sodium (Levothyroxine Sodium 50 Mcg Tablet) 50 mcg PO DAILYBB DONTE Stop: 04/29/25 06:29 Last Admin: 03/31/25 05:42 Dose: 50 mcg Documented By: Admin: 03/30/25 05:28 Dose: 50 mcg Documented By: LMP Loratadine (Loratadine 10 Mg Tab) 10 mg PO QAM DONTE Stop: 04/29/25 08:59 Last Admin: 03/31/25 08:10 Dose: 10 mg Documented By: Admin: 03/30/25 09:14 Dose: 10 mg Documented By: Losartan Potassium (Losartan Potassium 50 Mg Tab) 50 mg PO DAILY DONTE Stop: 04/29/25 08:59 Last Admin: 03/31/25 08:11 Dose: 50 mg Documented By: Admin: 03/30/25 09:14 Dose: 50 mg Documented By: Magnesium Oxide (Magnesium Oxide 400 Mg Tab) 400 mg PO DAILY DONTE Stop: 04/29/25 08:59 Last Admin: 03/31/25 08:20 Dose: 400 mg Documented By: Admin: 03/30/25 09:13 Dose: 400 mg Documented By: Metoprolol Succinate (Metoprolol Succ 50mg Ext Rel Tab) 100 mg PO BID DONTE Stop: 04/28/25 20:59 Last Admin: 03/31/25 08:11 Dose: 100 mg Documented By: Admin: 03/30/25 19:52 Dose: 100 mg Documented By: Admin: 03/30/25 09:14 Dose: 100 mg Documented By: Admin: 03/29/25 22:31 Dose: 100 mg Documented By: LEONORA Miscellaneous (Ibandronate 150 Mg Tablet--Order Awaiting Action) 1 each N/A QS ON LICENSE OF [facility] Stop: 04/29/25 00:00 Last Admin: 03/31/25 08:12 Dose: Not Given Documented By: Admin: 03/31/25 00:00 Dose: Not Given Documented By: Admin: 03/30/25 16:59 Dose: Not Given Documented By: Admin: 03/30/25 09:19 Dose: Not Given Documented By: Admin: 03/30/25 01:11 Dose: Not Given Documented By: LEONORA Montelukast Sodium (Montelukast Sodium 10 Mg Tablet) 10 mg PO QPM DONTE Stop: 04/28/25 20:59 Last Admin: 03/30/25 19:53 Dose: 10 mg Documented By: Admin: 03/29/25 22:30 Dose: 10 mg Documented By: LMP Pantoprazole Sodium (Pantoprazole 40 Mg Tab) 40 mg PO QAM DONTE Stop: 04/29/25 08:59 Last Admin: 03/31/25 08:10 Dose: 40 mg Documented By: Admin: 03/30/25 09:14 Dose: 40 mg Documented By: MS Pramipexole Dihydrochloride (Pramipexole Dihydrochlo 0.25 Mg Tab) 0.25 mg PO QPM DONTE Stop: 04/28/25 20:59 Last Admin: 03/30/25 19:52 Dose: 0.25 mg Documented By: Admin: 03/29/25 22:30 Dose: 0.25 mg Documented By: LMP Rosuvastatin Calcium (Rosuvastatin Calcium 20 Mg Tab) 40 mg PO DAILY DONTE Stop: 04/29/25 08:59 Last Admin: 03/31/25 08:10 Dose: 40 mg Documented By: Admin: 03/30/25 09:14 Dose: 40 mg Documented By: MS Umeclidinium/Vilanterol (Umeclidinium/Vilanterol 62.5/25mcg 7 Puffs/Inhaler) 1 puffs INH DAILY DONTE Stop: 04/29/25 08:59 Last Admin: 03/31/25 08:12 Dose: 1 puffs Documented By: Admin: 03/30/25 09:15 Dose: 1 puffs Documented By: MS Venlafaxine HCl (Venlafaxine Hcl Xr 150 Mg Capxr) 150 mg PO HS DONTE Stop: 04/28/25 20:59 Last Admin: 03/30/25 19:52 Dose: 150 mg Documented By: Admin: 03/29/25 22:30 Dose: 150 mg Documented By: LMP Vibegron (Vibegron 75 Mg Tab) 75 mg PO DAILY DONTE Stop: 04/29/25 08:59 Last Admin: 03/31/25 08:10 Dose: 75 mg Documented By: Admin: 03/30/25 09:14 Dose: 75 mg Documented By: MS Vitamin B Complex (Vitamin B Complex Tab) 1 tab PO QAM DONTE Stop: 04/29/25 08:59 Last Admin: 03/31/25 08:10 Dose: 1 tab Documented By: Admin: 03/30/25 09:14 Dose: 1 tab Documented By: MS Discontinued Medications Diltiazem HCl (Diltiazem Hcl 5 Mg/Ml 5 Ml Vial) 10 mg IV NOW STA Stop: 03/29/25 15:18 Last Admin: 03/29/25 15:32 Dose: 10 mg Documented By: LAW Co-signed By: SIRENA Furosemide (Furosemide 40 Mg/4 Ml Vial) 60 mg IV ONE ONE Stop: 03/30/25 11:27 Last Admin: 03/30/25 12:08 Dose: 60 mg Documented By: Sodium Chloride (Nss) 500 mls @ 999 mls/hr IV .Q31M ONE Stop: 03/29/25 13:40 Last Infusion: 03/29/25 13:56 Dose: Infused Documented By: Admin: 03/29/25 13:19 Dose: 999 mls/hr Documented By: FUENTES Acetaminophen (Ofirmev) 1,000 mg in 100 mls @ 400 mls/hr IV NOW STA Stop: 03/29/25 13:24 Last Admin: 03/29/25 13:19 Dose: Not Given Documented By: FUENTES Sodium Chloride (Nss) 500 mls @ 999 mls/hr IV .Q31M ONE Stop: 03/29/25 15:44 Last Infusion: 03/29/25 16:52 Dose: Infused Documented By: Admin: 03/29/25 15:32 Dose: 999 mls/hr Documented By: LAW Magnesium Sulfate/Dextrose (Magnesium Sulfate / D5w) 1 gm in 100 mls @ 100 mls/hr IV Q1H DONTE Stop: 03/29/25 17:13 Last Infusion: 03/29/25 17:46 Dose: Infused Documented By: Admin: 03/29/25 16:40 Dose: 100 mls/hr Documented By: Infusion: 03/29/25 16:36 Dose: Infused Documented By: Admin: 03/29/25 15:36 Dose: 100 mls/hr Documented By: LAW Ioversol (Optiray 320 125ml) 115 ml IV ONCE ONE Stop: 03/29/25 19:09 Last Admin: 03/29/25 19:08 Dose: 115 ml Documented By: GUILLERMO Potassium Chloride (Potassium Chloride Crtab 20 Meq Tabcr) 20 meq PO NOW ONE Stop: 03/30/25 11:28 Last Admin: 03/30/25 12:08 Dose: 20 meq Documented By: MS Imaging Data Radiologist's Impression: Chest X-Ray 03/29/25 12:56 XR chest 1V portable CLINICAL HISTORY: Chest pain, nonspecific COMPARISON STUDY: Chest CT January 07, 2025. Chest radiograph March 15, 2025. FINDINGS: Left subclavian pacer is in place. There is no pneumothorax or pleural effusion. Cardiomegaly with mild interstitial pulmonary edema. Right basilar densities favor atelectasis. Multiple old right-sided rib fractures are incidentally noted. IMPRESSION: 1. Cardiomegaly with mild interstitial pulmonary edema, similar to prior exam. 2. Right basilar densities suggestive of atelectasis. ACT 112: Negative or not required by law. Electronically signed by: Gorge Penny M.D. 03/29/2025 2:31 PM Discharge Plan Visit Data Chief Complaint: Cardiac Assessment Stated Complaint: SINUS INFECTION ED Provider: Delonte Lemos Discharge Problem: Infection due to parainfluenza virus 3, Atrial flutter with rapid ventricular response, Hypomagnesemia Patient Disposition: Admitted As Inpatient Condition: Fair Discharge Instructions Interventions: ED Discharge Assessment Last Done: 03/29/25 20:31
[2025-03-29] MEDS: ACETAMINOPHEN 1,000 MG/100 ML VIAL IV STA (13:19)
[2025-03-29] MEDS: SODIUM CHLORIDE 0.9% 500 ML IV ONE ×2 (13:19→15:32)
[2025-03-29 13:28] LABS: Base Excess VBG 2.9 mEq/L; HCO3 VBG 28 mmol/L; Oxygen Saturation VBG < 60.0 %; PCO2 VBG 43 mmHg (38-50); PO2 VBG 34 mmHg; pH VBG 7.42 (7.36-7.41)
[2025-03-29 13:36] LABS: Basophils # (auto) 0.01 K/uL (0.00-0.20); Basophils % (auto) 0.1 %; Eosinophils # (auto) 0.08 K/uL (0.00-0.50); Eosinophils % (auto) 0.9 %; Hematocrit (blood only) 40.3 % (37.0-47.0); Hemoglobin 13.3 g/dl (12.0-16.0); Immature Granulocytes # (auto) 0.04 K/uL (0.01-0.20); Immature Granulocytes % (auto) 0.4 %; Lymphocytes % (auto) 7.8 %; Mean Corpuscular Hemoglobin 30.9 pg (25.0-34.0); Mean Corpuscular Volume 93.5 fL (80.0-100.0); Mean Platelet Volume 9.2 fL (9.4-12.4); Monocytes # (auto) 0.52 K/uL (0.11-0.59); Monocytes % (auto) 5.8 %; Neutrophils # (auto) 7.67 K/uL (1.40-6.50); Platelet Count 306 K/uL (130-400); RDW Coefficient of Variation 14.9 % (11.5-14.5); RDW Standard Deviation 51.6 fL (36.4-46.3); Red Blood Count 4.31 M/uL (4.20-5.40); White Blood Count 9.02 K/ul (4.8-10.8)
[2025-03-29 13:56] LABS: Alanine Aminotransferase 9 U/L (7-52); Albumin Globulin Ratio 1.1 (0.9-2); Albumin Level 4.4 gm/dl (3.4-5.0); Alkaline Phosphatase 36 U/L (34-104); Anion Gap 8 (3-11); Aspartate Aminotransferase 14 U/L (13-39); BUN Creatinine Ratio 19.3 (10-20); Bilirubin,Total 0.5 mg/dl (0.2-1.0); Blood Urea Nitrogen 16 mg/dl (6-23); Calcium 9.9 mg/dl (8.6-10.3); Carbon Dioxide 27 mmol/L (21-32); Chloride 100 mmol/L (98-107); Globulin 4.1 gm/dl (2.5-4.0); Glucose 127 mg/dl (70-99(Fasting)); Lipase 18 U/L (11-82); Magnesium 1.3 mg/dl (1.7-2.4); Phosphorus 3.1 mg/dl (2.5-4.9); Sodium 135 mmol/L (136-145); Total Protein 8.5 gm/dl (6.0-8.3)
[2025-03-29 14:00] LABS: Troponin I High Sensitivity 9.7 pg/ml (0-14)
[2025-03-29 14:09] LABS: Thyroid Stimulating Hormone 3.029 uIu/ml (0.300-4.500)
--- NOTE | 2025-03-29 14:32 | XRay Report ---
XR chest 1V portable CLINICAL HISTORY: Chest pain, nonspecific COMPARISON STUDY: Chest CT January 07, 2025. Chest radiograph March 15, 2025. FINDINGS: Left subclavian pacer is in place. There is no pneumothorax or pleural effusion. Cardiomega ly with mild interstitial pulmonary edema. Right basilar densities favor atelectasis. Multiple old ri ght-sided rib fractures are incidentally noted. IMPRESSION: 1. Cardiomegaly with mild interstitial pulmonary edema, similar to prior exam. 2. Right basilar densities suggestive of atelectasis. ACT 112: Negative or not required by law. Electronically signed by: Gorge Penny M.D. 03/29/2025 2:31 PM
[2025-03-29 14:37] LABS: Adenovirus PCR Not Detected (NotDetected); Bordetella parapertussis PCR Not Detected (NotDetected); Bordetella pertussis PCR Not Detected (NotDetected); Chlamydia pneumoniae PCR Not Detected (NotDetected); Coronavirus 229E PCR Not Detected (NotDetected); Coronavirus CoV-2 (COVID19)PCR Not Detected (NotDetected); Coronavirus HKU1 PCR Not Detected (NotDetected); Coronavirus NL63 PCR Not Detected (NotDetected); Coronavirus OC43PCR Not Detected (NotDetected); Human Metapneumovirus PCR Not Detected (NotDetected); Influenza A PCR Not Detected (NotDetected); Influenza B PCR Not Detected (NotDetected); Mycoplasma pneumoniae PCR Not Detected (NotDetected); Parainfluenza Virus 1 PCR Not Detected (NotDetected); Parainfluenza Virus 2 PCR Not Detected (NotDetected); Parainfluenza Virus 3 PCR DETECTED (NotDetected); Parainfluenza Virus 4 PCR Not Detected (NotDetected); Respiratory Syncytial VirusPCR Not Detected (NotDetected); Rhinovirus/Enterovirus PCR Not Detected (NotDetected)
[2025-03-29] MEDS: dilTIAZem HCl 5 MG/ML 5 ML VIAL IV STA (15:32)
[2025-03-29] MEDS: MAGNESIUM SULFATE / D5W 1 GM/100 ML BAG IV SCH (15:36)
[2025-03-29 15:41] LABS: Appearance Urine Clear (Clear); Bilirubin Urine Negative (Negative); Blood Urine Negative (Negative); Color Urine Yellow; Glucose Urine UA Negative (Negative); Ketones Urine Negative (Negative); Leukocyte Esterase Urine Negative (Negative); Nitrite Urine Negative (Negative); Protein Urine Negative (Negative); Specific Gravity Urine 1.012 (1.000-1.030); Urobilinogen Urine Negative (Negative); pH Urine 7.5 (4.5-7.5)
[2025-03-29] MEDS ORDERED: LORazepam 0.5 MG TAB PO PRN (16:34)
[2025-03-29] MEDS ORDERED: MUPIROCIN 2% OINT 22 GM TUBE TOP PRN (16:34)
[2025-03-29] MEDS ORDERED: ALBUTEROL HFA 8 GM INHALER INH PRN (16:34)
[2025-03-29] MEDS ORDERED: NITROGLYCERIN SL 0.4 MG/TAB TAB SL PRN (16:34)
[2025-03-29] MEDS ORDERED: PHARMACY GLYCEMIC MGMT CONSULT PRN (16:37)
[2025-03-29] MEDS ORDERED: STAT IV Infusion **Titration per Protocol STA (17:12)
[2025-03-29] MEDS ORDERED: ALBUT/IPRATROP 3MG/0.5MG NEB 3 ML VIAL NEB PRN (17:13)
[2025-03-29] MEDS ORDERED: BENZONATATE 100 MG CAPSULE PO PRN (17:14)
--- NOTE | 2025-03-29 17:21 | History & Physical Report ---
Date of Service March 29, 2025 Assessment & Plan (1) Atrial fibrillation with rapid ventricular response: Plan: -give 10mg cardizem bolus -cardizem drip -pt on cardizem 240mg PO -metoprolol 100mg Qdaily -eliquis -echo -cardiology consulted (2) Parainfluenza infection: Plan: -supportive care -supplemental 02 -Tessalon (3) Type 2 diabetes mellitus: Plan: -Glycemic control as per pharmacy -metformin (4) GERD (gastroesophageal reflux disease): Plan: -protonix (5) Anxiety: Plan: -lorazepam (6) Depression: Plan: -venlafaxine (7) Hyperlipidemia: Plan: -crestor History of Present Illness Chief Complaint: SOB, generalized weakness, productive cough. Primary Care Provider: Rico Arevalo MD Pt is a 79 y/o female with pmh of DM, afib on eliquis, depression, anxiety, HLD, GERD, who presents with 3 days of progressive SOB, productive cough of yellow phelm, and generalized weakness. Pt denies any fevers or chest pain. Pt's labs show mg+ 1.3. Her HR was afib with RVR and she was given 10mg IV cardizem bolus with HR still in the low 120s. Pt was found to be parainfluenza +. Her CXR showed cardiomegaly with mild interstitial pulmonary edema, no infiltrates. Pt was hypoxic requiring 2LNC to maintain stats >92. She is being admitted for further treatment of afib with RVR and parainfluenza virus infection with hypoxia. Allergies Allergy/AdvReac Type Severity Reaction Status Date / Time sulfamethoxazole Allergy Intermediate Rash Verified 03/29/25 16:09 [From Bactrim] trimethoprim [From Bactrim] Allergy Intermediate Rash Verified 03/29/25 16:09 codeine AdvReac Intermediate Vomiting & Verified 03/29/25 16:09 hallucinations Home Medications Medication Instructions Recorded Confirmed Type loratadine 10 mg tablet (Allergy 10 mg PO QAM 06/29/20 03/29/25 History Relief (loratadine)) nitroglycerin 0.4 mg sublingual 0.4 mg sublingual Q5M PRN chest 04/29/23 03/29/25 Rx tablet pain #25 tabs clopidogrel 75 mg tablet 75 mg PO DAILY 06/09/23 03/29/25 History albuterol sulfate 90 mcg/actuation 2 puff inhalation QID PRN 01/27/24 03/29/25 Rx aerosol inhaler (Ventolin HFA) shortness of breath or wheezing #18 grams mirabegron 50 mg tablet,extended 50 mg PO QAM #90 tabs 05/28/24 03/29/25 Rx release 24 hr (Myrbetriq) rosuvastatin 40 mg tablet (Crestor) 40 mg PO DAILY #90 tabs 07/13/24 03/29/25 Rx bupropion HCl 300 mg 24 hr tablet, 300 mg PO QAM #90 tabs 07/19/24 03/29/25 Rx extended release metformin 500 mg tablet 500 mg PO BID #200 tabs 08/04/24 03/29/25 Rx fluticasone fur. 200 mcg-umeclid 1 inh inhalation DAILY #180 ea 08/31/24 03/29/25 Rx 62.5 mcg-vilant 25 mcg inhalat.powder (Trelegy Ellipta) losartan 50 mg tablet 50 mg PO DAILY #90 tabs 09/14/24 03/29/25 Rx ibandronate 150 mg tablet 150 mg PO MONTHLY #3 tabs 09/24/24 03/29/25 Rx montelukast 10 mg tablet 10 mg PO QPM #90 tabs 10/27/24 03/29/25 Rx (Singulair) Auto Titrating CPAP #1 ea 11/15/24 03/21/25 Rx blood sugar diagnostic (Accu-Chek #100 ea 12/04/24 03/21/25 Rx Sandy Plus test strips) blood sugar diagnostic (OneTouch #100 ea 12/28/24 03/21/25 Rx Ultra Test strips) isosorbide mononitrate 30 mg 30 mg PO QAM 01/07/25 03/29/25 History tablet,extended release 24 hr vitamin B complex 1 tab PO QAM 01/07/25 03/29/25 History ascorbic acid (vitamin C) 500 mg 500 mg PO DAILY 01/14/25 03/29/25 History capsule ferrous sulfate 325 mg (65 mg 325 mg PO DAILY #90 tabs 01/14/25 03/29/25 Rx iron) tablet pramipexole 0.25 mg tablet 0.25 mg PO QPM #60 tabs 01/14/25 03/29/25 Rx magnesium oxide 400 mg PO DAILY 01/20/25 03/29/25 History apixaban 5 mg tablet (Eliquis) 5 mg PO BID #180 tabs 02/25/25 03/29/25 Rx lorazepam 0.5 mg tablet 0.5 mg PO TID PRN anxiety or 03/01/25 03/29/25 Rx restless legs #90 tabs donepezil 5 mg tablet 5 mg PO DAILY #30 tabs 03/04/25 03/29/25 Rx fenofibrate 54 mg tablet 54 mg PO QAM #90 tabs 03/18/25 03/29/25 Rx metoprolol succinate 100 mg 100 mg PO BID #60 tabs 03/18/25 03/29/25 Rx tablet,extended release 24 hr pantoprazole 40 mg tablet,delayed 40 mg PO QAM #90 tabs 03/18/25 03/29/25 Rx release (Protonix) diltiazem HCl 240 mg capsule,24 240 mg PO DAILY #30 caps 03/21/25 03/29/25 Rx hr,extended release levothyroxine 50 mcg tablet 50 mcg PO DAILYBB 03/29/25 03/29/25 History mupirocin 2 % topical ointment 1 applic topical BID PRN SKIN 03/29/25 03/29/25 History IRRITATIONS venlafaxine 150 mg 150 mg PO HS 03/29/25 03/29/25 History capsule,extended release 24 hr Past Med/Surg History Problem List (Updated 03/29/25 @ 17:26 by Dayron Cortez MD) Parainfluenza infection Opacity of lung on imaging study Recurrent UTI Carotid stenosis, right Chronic cerebral ischemia Confusion TIA (transient ischemic attack) Urinary frequency Anticoagulant long-term use Atrial fibrillation with rapid ventricular response SSS (sick sinus syndrome) Mitral regurgitation Constipation Hypoxia (Acute) Hematoma of scalp (Acute) Recurrent falls (Acute) Sinus bradycardia Atrial flutter with rapid ventricular response (Acute) Asymptomatic bacteriuria Fracture of proximal phalanx of digit of left hand Paroxysmal atrial fibrillation with RVR Iron deficiency anemia Lung nodules S/P coronary artery stent placement Memory loss Paroxysmal atrial fibrillation Osteoporosis Vitamin D deficiency (Acute) Back pain, chronic (Acute) Allergic rhinitis (Acute) Osteoarthritis of right knee Microalbuminuria Depression (Acute) Anxiety (Acute) Multinodular goiter Type 2 diabetes mellitus (Acute) NIDDM GERD (gastroesophageal reflux disease) (Acute) Graves disease (Acute) Euthyroid per 01/31/21 thyroid studies -- no medications/issues currently, under surveillance by PCP Hyperlipidemia (Acute) Moderate obstructive sleep apnea (Acute) CPAP Pulmonary nodules (Acute) Restless legs syndrome (Acute) Medical History Pericardial effusion PAD (peripheral artery disease) Hypomagnesemia CR (acute kidney injury) Meningioma Pseudoaneurysm of left femoral artery Left groin mass Abdominal distension Diaphoresis Chest discomfort Dyspnea on exertion Abnormal thyroid blood test Cough Close exposure to 2019-nCoV Conjunctivitis Close exposure to 2019-nCoV Cough productive of purulent sputum History of COVID-19 Dx 05/2020 (treated inpatient at [facility]) Asthma Well controlled Closed fracture of right distal fibula Thyroid nodule Osteoporosis Surgical History Hx of cardiac cath 06/05/2023 H/O laminectomy (~1991) cervical laminectomy. full rom S/P right knee arthroscopy History of esophagogastroduodenoscopy (EGD) History of colonoscopy History of cholecystectomy History of corneal transplant R/L Family History Father , age 82 of heart disease. Diabetes Heart disease Hemangioma Glaucoma Asthma Hypertension Mother , age 78 of a "massive" stroke Stroke Other No family history of adverse response to anesthesia Social History Smoking Status: Former smoker Tobacco Type: Cigarettes Age Started Using Tobacco: 14; Age Quit Using Tobacco: 41; packs per day: 0.5; Second Hand Exposure: No; Do You Dip or Chew Tobacco: No; Hx Alcohol Use: No Hx Substance Use: No Preferred Language: Yoruba Communication Ability: Effective Visual Impairment: No Limitations Hearing Ability: Normal Heat Treat Inspector Required: No Beliefs That Will Affect Care: None marital status: Current Living Situation: Spouse current occupational status: retired 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 HENT: Negative for neck pain/stiffness, headache, congestion, sore throat, swelling. EYES: Negative for discharge/pain or vision changes. RESP: Negative for cough/hemoptysis and shortness of breath. CV: Negative chest pain, difficulty breathing, palpitations. ABD: Negative pain, nausea, vomiting. : Negative increase frequency, dysuria, blood in urine or stool. MUSC: Negative for muscle aches, edema. SKIN: Negative rash, lesions/sores. NEURO: Negative headache, dizziness, weakness. Physical Exam Physical Exam: GENERAL APPEARANCE NAD, activity normal for age, well developed/ well nourished, no cyanosis, pallor, or diaphoresis. EYES lids/conjunctiva normal. EARS/NOSE/THROAT Mucous membranes moist, nares normal, lips/teeth normal uvula midline without oral pharyngeal erythema, exudate or swelling TMs normal bilaterally. No lymphangitis/lymphedema. HEAD/NECK normocephalic atraumatic, no facial trauma, neck is supple. RESPIRATORY respiratory effort normal, speaks in full sentences, no tripod position, no accessory muscle use. Lungs clear to auscultation without rhonchi, wheezes, rales CARDIAC Regular rate and rhythm, no edema. ABDOMINAL Soft, ND/NT. No evidence of fluid wave. No pulsatile masses on exam, rebound tenderness, Norwood sign or pain over Mcburney's point. MUSCLES/EXTREMITIES No abnormal range of motion, no swelling. SKIN Warm, pink and dry. No rashes, dermatoses, petechiae or lesions. NEUROLOGICAL Speech is clear and appropriate. Normal level of consciousness. Gait and coordination are normal. 5/5 strength in all extremities. PSYCH Normal mood and affect. Judgement/competence is appropriate Results & Data Results & Data Vital Signs (Past 12 Hours) Vital Signs Temp Pulse Pulse Resp BP BP Pulse Ox 03/29/25 16:49 120 H 22 141/96 H 93 03/29/25 15:00 125 H 20 136/96 94 03/29/25 13:57 107 H 20 151/97 H 92 03/29/25 13:34 102 H 03/29/25 13:25 95 03/29/25 13:25 88 L 03/29/25 12:37 36.8 C 122 H 20 120/91 90 O2 Del Method O2 Flow Rate 03/29/25 16:49 Nasal Cannula 3 03/29/25 15:00 Nasal Cannula 3 03/29/25 13:57 Nasal Cannula 2 03/29/25 13:34 03/29/25 13:25 Nasal Cannula 2 03/29/25 13:25 Room Air 03/29/25 12:37 Room Air PG Care Time/CCT Total # of Minutes Spent Total Time Spent with Patient: Total time spent is greater than 50% in coordination of care (as documented) at patient's floor/unit and/or counseling patient: Coding Level of Care Code 87004 INT INP/OBS CARE 2/55MIN Diagnoses Atrial fibrillation with rapid ventricular response I48.91 Parainfluenza infection B34.8 Type 2 diabetes mellitus E11.9 GERD (gastroesophageal reflux disease) K21.9 Anxiety F41.9 Depression F32.9 Hyperlipidemia E78.5
[2025-03-29] MEDS: dilTIAZem HCL 125 MG in DEXTROSE 5% 100 ML IV SCH (17:43)
[2025-03-29] MEDS: OPTIRAY 320 125ml IV ONE (19:08)
[2025-03-29] MEDS ORDERED: CARBOHYDRATES FOR HYPOGLYCEMIA PO PRN (19:30)
[2025-03-29] MEDS ORDERED: GLUCOSE 40% GEL 15 GM TUBE PO PRN (19:30)
[2025-03-29] MEDS ORDERED: DEXTROSE 50% 50 ML SYRINGE IV PRN (19:30)
[2025-03-29] MEDS ORDERED: GLUCOSE 10 TAB/TUBE PO PRN (19:30)
[2025-03-29] MEDS ORDERED: GLUCAGON FOR INJ 1 MG VIAL SQ PRN (19:30)
--- NOTE | 2025-03-29 19:39 | CT Scan Report ---
Head CT without contrast CT angiogram of the neck CT angiogram of the brain with contrast Provided History: Weakness Comparison: None Technique: HEAD CT: Using multidetector thin collimation helical acquisition technique, axial, coronal and sagittal CT images from the skull base to the vertex were obtained without intravenous contrast. HEAD and NECK CTA: During rapid bolus intravenous injection of nonionic contrast material, axial images were obtained using thin collimation multidetector helical technique from the base of the neck through the of vertex of the head. This CT angiogram data was reconstructed at thin intervals with mild overlap. 3D reconstructions were obtained. The axial source images, multiplanar reformations, 3D reconstructions in both maximum intensity projection display and volume rendered models were reviewed. Dose reduction techniques were achieved by using automatic exposure control and/or adjustment of mA and/or kV according to patient size and/or use of iterative reconstruction technique. Findings: Head CT: There is no intracranial hemorrhage, mass effect, or midline shift. Davidson/white matter differentiation in both cerebral hemispheres is preserved. Ventricles are proportionate to the cerebral sulci. A rim calcified extra-axial density overlying the left frontal lobe measuring 8 mm may represent a meningioma. Head CTA demonstrates no aneurysm or stenosis of the major intracranial arteries. Neck CTA demonstrates calcification of the carotid bulbs bilaterally extending into the proximal ICA. No left ICA stenosis. At the proximal right ICA, there is a short segment of approximately 50 to 60% stenosis. The distal internal carotid arteries are widely patent. There is tortuosity of the distal internal carotid arteries. The origins of the great vessels from the aortic arch are patent. No mass is noted within the visualized portions of the cervical soft tissues or lung apices. Interstitial and alveolar pulmonary edema seen at the lung apices, right greater than left. Impression: 1. Head CTA demonstrates no aneurysm or stenosis of the major intracranial arteries 2. Neck CTA demonstrates atherosclerotic disease, on the right resulting in approximately 50 to 60% proximal ICA stenosis. The distal internal carotid arteries are tortuous and otherwise widely patent. 3. No intracranial hemorrhage on the noncontrast head CT. 4. Pulmonary edema seen at the lung apices. Electronically signed by Greg Enrique 03-29-2025 7:38 PM
[2025-03-29] MEDS ORDERED: metFORMIN HCL 500 MG TAB PO SCH (21:00)
[2025-03-29] MEDS: MONTELUKAST SODIUM 10 MG TABLET PO SCH (22:30)
[2025-03-29] MEDS: PRAMIPEXOLE DIHYDROCHLO 0.25 MG TAB PO SCH (22:30)
[2025-03-29] MEDS: VENLAFAXINE HCL XR 150 MG CAPXR PO SCH (22:30)
[2025-03-29] MEDS: APIXABAN 5 MG TABLET PO SCH (22:31)
[2025-03-29] MEDS: METOPROLOL SUCC 50MG EXT REL TAB PO SCH (22:31)
[2025-03-30] MEDS: LEVOTHYROXINE SODIUM 50 MCG TABLET PO SCH (05:28)
[2025-03-30 07:44] LABS: Hematocrit (blood only) 36.7 % (37.0-47.0); Hemoglobin 11.9 g/dl (12.0-16.0); Mean Corpuscular Hemoglobin 30.4 pg (25.0-34.0); Mean Corpuscular Hgb Conc 32.4 g/dL (32.0-36.0); Mean Corpuscular Volume 93.6 fL (80.0-100.0); Mean Platelet Volume 9.2 fL (9.4-12.4); Platelet Count 251 K/uL (130-400); RDW Coefficient of Variation 15.2 % (11.5-14.5); RDW Standard Deviation 52.2 fL (36.4-46.3); Red Blood Count 3.92 M/uL (4.20-5.40); White Blood Count 11.43 K/ul (4.8-10.8)
[2025-03-30 08:03] LABS: BUN Creatinine Ratio 18.8 (10-20); Magnesium 1.5 mg/dl (1.7-2.4); Potassium 3.7 mmol/L (3.5-5.1)
[2025-03-30] MEDS ORDERED: NON-FORMULARY MEDICATION (Fluticasone-Umeclidin-Vilanter [Trelegy Ellipta] 200-62.5-25 mcg INH SCH (09:00)
[2025-03-30] MEDS: MAGNESIUM OXIDE 400 MG TAB PO SCH (09:13)
[2025-03-30] MEDS: ISOSORBIDE MONO EXTENDED REL 30 MG TABCR PO SCH (09:14)
[2025-03-30] MEDS: DONEPEZIL HCL 5 MG TAB PO SCH (09:14)
[2025-03-30] MEDS: CLOPIDOGREL BISULFATE 75 MG TAB PO SCH (09:14)
[2025-03-30] MEDS: buPROPion XL 300 MG TABCR PO SCH (09:14)
[2025-03-30] MEDS: dilTIAZem HCL 240 MG CAPCR PO SCH (09:14)
[2025-03-30] MEDS: ASCORBIC ACID 500 MG TAB PO SCH (09:14)
[2025-03-30] MEDS: LORATADINE 10 MG TAB PO SCH (09:14)
[2025-03-30] MEDS: FERROUS SULFATE 325 MG TAB PO SCH (09:14)
[2025-03-30] MEDS: PANTOprazole 40 MG TAB PO SCH (09:14)
[2025-03-30] MEDS: FENOFIBRATE NANOCRYSTALLIZED 48 MG TABLET PO SCH (09:14)
[2025-03-30] MEDS: LOSARTAN POTASSIUM 50 MG TAB PO SCH (09:14)
[2025-03-30] MEDS: VIBEGRON 75 MG TAB PO SCH (09:14)
[2025-03-30] MEDS: ROSUVASTATIN CALCIUM 20 MG TAB PO SCH (09:14)
[2025-03-30] MEDS: VITAMIN B COMPLEX TAB PO SCH (09:14)
[2025-03-30] MEDS: UMECLIDINIUM/VILANTEROL 62.5/25MCG 7 PUFFS/INHALER INH SCH (09:15)
[2025-03-30] MEDS: FLUTICASONE FUROATE 100MCG 14 PUFFS/INHALER INH SCH (09:16)
--- NOTE | 2025-03-30 09:21 | Hospitalist Progress Note ---
Date of Service March 30, 2025 Assessment & Plan (1) Atrial fibrillation with rapid ventricular response: Plan: -given 10mg cardizem bolus in ER -cardizem drip -pt on cardizem 240mg PO -metoprolol 100mg Qdaily -eliquis -echo -cardiology consulted (2) Parainfluenza infection: Plan: -supportive care -supplemental 02 -Tessalon (3) Type 2 diabetes mellitus: Plan: -Glycemic control as per pharmacy -metformin (4) GERD (gastroesophageal reflux disease): Plan: -protonix (5) Anxiety: Plan: -lorazepam (6) Depression: Plan: -venlafaxine (7) Hyperlipidemia: Plan: -crestor Admission and Anticipated Discharge Date Admission Date: March 29, 2025 Subjective Pt had episode of AMS in ER last night. CT/CTA brain negative. Pt appears at baseline this am. Denies any complaints. Review of Systems Review of Systems: SOB, productive cough, CONST: Negative for fever, body aches and chills. HENT: Negative for neck pain/stiffness, headache, congestion, sore throat, swelling. EYES: Negative for discharge/pain or vision changes. RESP: Negative for cough/hemoptysis and shortness of breath. CV: Negative chest pain, difficulty breathing, palpitations. ABD: Negative pain, nausea, vomiting. : Negative increase frequency, dysuria, blood in urine or stool. MUSC: Negative for muscle aches, edema. SKIN: Negative rash, lesions/sores. NEURO: Negative headache, dizziness, weakness. Physical Exam Physical Exam: GENERAL APPEARANCE NAD, activity normal for age, well developed/ well nourished, no cyanosis, pallor, or diaphoresis. EYES lids/conjunctiva normal. EARS/NOSE/THROAT Mucous membranes moist, nares normal, lips/teeth normal uvula midline without oral pharyngeal erythema, exudate or swelling TMs normal bilaterally. No lymphangitis/lymphedema. HEAD/NECK normocephalic atraumatic, no facial trauma, neck is supple. RESPIRATORY respiratory effort normal, speaks in full sentences, no tripod position, no accessory muscle use. Lungs clear to auscultation without rhonchi, wheezes, rales CARDIAC Regular rate and rhythm, no edema. ABDOMINAL Soft, ND/NT. No evidence of fluid wave. No pulsatile masses on exam, rebound tenderness, Norwood sign or pain over Mcburney's point. MUSCLES/EXTREMITIES No abnormal range of motion, no swelling. SKIN Warm, pink and dry. No rashes, dermatoses, petechiae or lesions. NEUROLOGICAL Speech is clear and appropriate. Normal level of consciousness. Gait and coordination are normal. 5/5 strength in all extremities. PSYCH Normal mood and affect. Judgement/competence is appropriate Results & Data Results & Data Vital Signs (Past 12 Hours) Vital Signs Temp Pulse Pulse Pulse Resp BP BP 03/30/25 07:47 36.4 C L 76 28 H 125/70 03/30/25 03:12 36.6 C 100 H 19 136/95 03/30/25 00:00 110 H 03/29/25 22:09 37.4 C 124 H 36 H 146/89 H 03/29/25 22:00 Pulse Ox O2 Del Method O2 Flow Rate 03/30/25 07:47 93 Room Air 03/30/25 03:12 93 Nasal Cannula 03/30/25 00:00 03/29/25 22:09 92 Nasal Cannula 5 03/29/25 22:00 Nasal Cannula 5 PG Care Time/CCT Total # of Minutes Spent Total Time Spent with Patient: Total time spent is greater than 50% in coordination of care (as documented) at patient's floor/unit and/or counseling patient: Coding Level of Care Code 43492 SUB INP/OBS CARE 2/35MIN Diagnoses Atrial fibrillation with rapid ventricular response I48.91 Parainfluenza infection B34.8 Type 2 diabetes mellitus E11.9 GERD (gastroesophageal reflux disease) K21.9 Anxiety F41.9 Depression F32.9 Hyperlipidemia E78.5
--- NOTE | 2025-03-30 10:52 | Cardiology Consultation ---
Date of Consultation March 30, 2025 Assessment & Plan (1) Infection due to parainfluenza virus 3: (2) Atrial fibrillation with rapid ventricular response: (3) (HFpEF) heart failure with preserved ejection fraction: Plan Mrs. James is a 79-year-old female with a history of CAD s/p RCA PCI, Permanent Atrial Fibrillation, Atrial Flutter, Hypertension, Dyslipidemia, Type 2 Diabetes Mellitus, Asthma, and Tachy-Doyle Syndrome s/p Dual Chamber Pacemaker who presented to [facility] ER on 03/29/25 complaining of sinus congestion, cough, generalized weakness and malaise/disorientation over the preceding 24-48 hours. She tested positive for Parainfluenza Virus 3, she was atrial fibrillation with rates in the 110's 120's, and her CXR was consistent with mild pulmonary edema. Patient admitted to the PCU. Supportive treatment for parainfluenza virus, and she was placed on a Cardizem drip in addition to her Diltiazem CD 240 mg daily and Metoprolol Succinate ER 100 mg b.i.d. V-rate appears to be controlled in the 90's to low 100's according to her monitor tech. Patient does not recall the events leading up to or at the time of her admission, but she states she feels much better now than when she was admitted. She still has a cough but denies any fevers or chills. She did undergo CTA of her head and neck and a CT scan of her head because of neurologic symptoms -- these were unremarkable. Patient's high sensitivity troponin I level was normal at 9.7 pg/mL but her BNP is elevated at 650 pg/mL. She has a positive fluid balance of + 1490.6 mL. Echocardiogram has been completed but not read yet, LV systolic function appears to be normal with an LVEF of 60%. Recommend the followin. Continue Cardizem drip. 2. Continue Metoprolol Succinate ER 100 mg b.i.d.. 3. Continue Diltiazem CD 240 mg daily. 4. Continue Eliquis 5 mg b.i.d.. 5. Give a single dose of IV Lasix 60 mg. 6. Give a single dose of Potassium Chloride 20 mEq. 7. Correct hypomagnesemia. 8. Continue Imdur ER 30 mg daily. 9. Continue Losartan 50 mg daily. 10. Continue Rosuvastatin 40 mg. 11. Continue Plavix 75 mg daily. 12. Monitor I&O's. 13. Monitor daily body weights. 14. Low sodium diet. 15. Continue inhalers/nebulizers as directed. We will continue to follow her while hospitalized and following discharge. History of Present Illness Reason for Consultation: -- A-Fib with RVR. Requesting Physician: Dayron Cortez MD Attending Physician: Migue Ugalde MD History of Present Illness Mrs. James is a 79-year-old female with a history of CAD s/p RCA PCI, Permanent Atrial Fibrillation, Atrial Flutter, Hypertension, Dyslipidemia, Type 2 Diabetes Mellitus, Asthma, and Tachy-Doyle Syndrome s/p Dual Chamber Pacemaker who presented to [facility] ER on 03/29/25 complaining of sinus congestion, cough, generalized weakness and malaise/disorientation over the preceding 24-48 hours. She tested positive for Parainfluenza Virus 3, she was atrial fibrillation with rates in the 110's 120's, and her CXR was consistent with mild pulmonary edema. Patient admitted to the PCU. Supportive treatment for parainfluenza virus, and she was placed on a Cardizem drip in addition to her Diltiazem CD 240 mg daily and Metoprolol Succinate ER 100 mg b.i.d. V-rate appears to be controlled in the 90's to low 100's according to her monitor tech. Patient does not recall the events leading up to or at the time of her admission, but she states she feels much better now than when she was admitted. She still has a cough but denies any fevers or chills. She did undergo CTA of her head and neck and a CT scan of her head because of neurologic symptoms -- these were unremarkable. Patient's high sensitivity troponin I level was normal at 9.7 pg/mL but her BNP is elevated at 650 pg/mL. Echocardiogram has been completed but not read yet, LV systolic function appears to be normal with an LVEF of 60%. HISTORICAL BACKGROUND: She experienced dyspnea on exertion that was limiting her daily activities in 2022. She underwent cardiac catheterization demonstrating RCA CAD. Attempts for further investigation at [facility] were unsuccessful. She was referred to [facility] given her high calcium burden and possibility of atherectomy. Dr. Abdalla performed RCA Atherectomy and PCI x 2 on 06/05/2023. Left femoral artery developed pseudoaneurysm, requiring thrombin injection at [facility] on 06/20/2023. She was hospitalized on 01/07/2025 after a mechanical fall. She was noted to be in atrial flutter. She spontaneously converted to sinus rhythm at times during her hospital stay but continued to have paroxysmal atrial flutter with rapid ventricular response. She was asymptomatic. Given that she was not adequately rate controlled despite escalating doses of beta-hanna, and exhibited mild sinus bradycardia while in sinus rhythm, the decision was made to initiate rhythm control with amiodarone. Unfortunately, Amiodarone did not keep her in a normal sinus rhythm so it was ultimately discontinued in favor of a rate control/anticoagulation strategy. She has had the following studies/procedures: 1. Stress echo 10/15/2022: Nondiagnostic due to failure to achieve target heart rate. Normal LV size, wall thickness, and systolic function. EF 58%. No significant valvular abnormality. 2. Pharmacologic nuclear stress 11/19/2022: Negative for ischemia. Very mild and small fixed defect likely artifact given normal wall motion. LVEF 79%. 3. Cardiac cath 05/15/2023 [facility] (Dr. Baig): Left main luminal irregularities. LAD 30%. RCA proximal 70%. Catheters were unable to be passed through the right subclavian artery. Left heart catheterization performed via the left radial artery. LVEDP 4. PA 29/8/17. PCWP 6. RV 29/0. Mean RA 3. 4. Cardiac cath 05/16/2023 [facility] (Dr. Ugalde): Attempted FFR of RCA. Performed via the right femoral artery. Difficulty advancing J-tip wire. Fluoroscopy suggested iliac and distal aortic atherosclerosis. Eventually, wires were able to be sufficiently advanced however cannulation of the RCA was difficult. Once engaged, guidewire could not be sufficiently advanced beyond RCA lesion. 5. Cardiac cath 06/05/2023 [facility] (Dr. Abdalla): Performed via left femoral artery. Proximal RCA 90%. Rotational atherectomy performed and then PCI with 2 overlapp ing 3 x 16 mm and 3 x 32 mm Synergy BERNARDO. Mid to proximal segment postdilated with 3.25 mm NC. Complicated by left femoral artery pseudoaneurysm. 6. CT abdomen/pelvis 06/19/2023 [facility]: Proximal left femoral artery pseudoaneurysm. Severe atherosclerosis with severe stenosis of the proximal right femoral artery and near occlusion of the mid right femoral artery and proximal right internal iliac artery. 7. Left femoral arterial duplex 06/19/2023 [facility]: 4.7 cm x 3.9 cm pseudoaneurysm arising from left femoral artery. 8. Pseudoaneurysm thrombin injection 06/20/2023 [facility]: Successful. 9. Echo 07/29/2023 [facility]: Normal LV size. EF > 70%. Normal wall motion. Moderate LVH. Moderate left atrial dilation. Sclerotic aortic valve without significant stenosis. RVSP 38. Small pericardial effusion. No significant change from 10/15/2022. 10. Echo 01/08/2025 [facility]: Normal LV size, wall motion, systolic function. EF 60%-65%. Moderate LVH. Severe left atrial dilation. Moderate MAC. Mild MR. RVSP 39. Small pericardial effusion without echocardiographic evidence of tamponade physiology. Family history: Father had CAD diagnosed in his 60s. Social history: She quit smoking approximately 51 years of age after approximately 30 pack years. Occasional alcohol. No drugs. She is and lives at home with her , You. She has 2 children (Kandice Quiros - nurse; son Javy). Her [id number], Kasey (ER nurse at [employer] [facility] [employer]) has accompanied her in the past. Kandice YOUNG (moving to [place]) has accompanied her in the past. Allergies Allergy/AdvReac Type Severity Reaction Status Date / Time sulfamethoxazole Allergy Intermediate Rash Verified 03/29/25 16:09 [From Bactrim] trimethoprim [From Bactrim] Allergy Intermediate Rash Verified 03/29/25 16:09 codeine AdvReac Intermediate Vomiting & Verified 03/29/25 16:09 hallucinations Home Medications Medication Instructions Recorded Confirmed Type loratadine 10 mg tablet (Allergy 10 mg PO QAM 06/29/20 03/29/25 History Relief (loratadine)) nitroglycerin 0.4 mg sublingual 0.4 mg sublingual Q5M PRN chest 04/29/23 03/29/25 Rx tablet pain #25 tabs clopidogrel 75 mg tablet 75 mg PO DAILY 06/09/23 03/29/25 History albuterol sulfate 90 mcg/actuation 2 puff inhalation QID PRN 01/27/24 03/29/25 Rx aerosol inhaler (Ventolin HFA) shortness of breath or wheezing #18 grams mirabegron 50 mg tablet,extended 50 mg PO QAM #90 tabs 05/28/24 03/29/25 Rx release 24 hr (Myrbetriq) rosuvastatin 40 mg tablet (Crestor) 40 mg PO DAILY #90 tabs 07/13/24 03/29/25 Rx bupropion HCl 300 mg 24 hr tablet, 300 mg PO QAM #90 tabs 07/19/24 03/29/25 Rx extended release metformin 500 mg tablet 500 mg PO BID #200 tabs 08/04/24 03/29/25 Rx fluticasone fur. 200 mcg-umeclid 1 inh inhalation DAILY #180 ea 08/31/24 03/29/25 Rx 62.5 mcg-vilant 25 mcg inhalat.powder (Trelegy Ellipta) losartan 50 mg tablet 50 mg PO DAILY #90 tabs 09/14/24 03/29/25 Rx ibandronate 150 mg tablet 150 mg PO MONTHLY #3 tabs 09/24/24 03/29/25 Rx montelukast 10 mg tablet 10 mg PO QPM #90 tabs 10/27/24 03/29/25 Rx (Singulair) Auto Titrating CPAP #1 ea 11/15/24 03/21/25 Rx blood sugar diagnostic (Accu-Chek #100 ea 12/04/24 03/21/25 Rx Sandy Plus test strips) blood sugar diagnostic (OneTouch #100 ea 12/28/24 03/21/25 Rx Ultra Test strips) isosorbide mononitrate 30 mg 30 mg PO QAM 01/07/25 03/29/25 History tablet,extended release 24 hr vitamin B complex 1 tab PO QAM 01/07/25 03/29/25 History ascorbic acid (vitamin C) 500 mg 500 mg PO DAILY 01/14/25 03/29/25 History capsule ferrous sulfate 325 mg (65 mg 325 mg PO DAILY #90 tabs 01/14/25 03/29/25 Rx iron) tablet pramipexole 0.25 mg tablet 0.25 mg PO QPM #60 tabs 01/14/25 03/29/25 Rx magnesium oxide 400 mg PO DAILY 01/20/25 03/29/25 History apixaban 5 mg tablet (Eliquis) 5 mg PO BID #180 tabs 02/25/25 03/29/25 Rx lorazepam 0.5 mg tablet 0.5 mg PO TID PRN anxiety or 03/01/25 03/29/25 Rx restless legs #90 tabs donepezil 5 mg tablet 5 mg PO DAILY #30 tabs 03/04/25 03/29/25 Rx fenofibrate 54 mg tablet 54 mg PO QAM #90 tabs 03/18/25 03/29/25 Rx metoprolol succinate 100 mg 100 mg PO BID #60 tabs 03/18/25 03/29/25 Rx tablet,extended release 24 hr pantoprazole 40 mg tablet,delayed 40 mg PO QAM #90 tabs 03/18/25 03/29/25 Rx release (Protonix) diltiazem HCl 240 mg capsule,24 240 mg PO DAILY #30 caps 03/21/25 03/29/25 Rx hr,extended release levothyroxine 50 mcg tablet 50 mcg PO DAILYBB 03/29/25 03/29/25 History mupirocin 2 % topical ointment 1 applic topical BID PRN SKIN 03/29/25 03/29/25 History IRRITATIONS venlafaxine 150 mg 150 mg PO HS 03/29/25 03/29/25 History capsule,extended release 24 hr Patient History Medical History Hypomagnesemia Ambulatory dysfunction Elevated brain natriuretic peptide (BNP) level Enterovirus infection Rhinovirus infection Cough Shortness of breath Recurrent falls Mild cognitive disorder CAD (coronary atherosclerotic disease) Hypertension Asthma Pericardial effusion PAD (peripheral artery disease) Hypomagnesemia CR (acute kidney injury) Meningioma Pseudoaneurysm of left femoral artery Left groin mass Abdominal distension Diaphoresis Chest discomfort Dyspnea on exertion Abnormal thyroid blood test Cough Close exposure to 2018-V Conjunctivitis Close exposure to 2018-V Cough productive of purulent sputum History of COVID-19 Dx 05/2020 (treated inpatient at [facility]) Asthma Well controlled Closed fracture of right distal fibula Thyroid nodule Osteoporosis Surgical History Status post placement of cardiac pacemaker Hx of cardiac cath 06/05/2023 H/O laminectomy (~1991) cervical laminectomy. full rom S/P right knee arthroscopy History of esophagogastroduodenoscopy (EGD) History of colonoscopy History of cholecystectomy History of corneal transplant R/L Family History Father , age 82 of heart disease. Diabetes Heart disease Hemangioma Glaucoma Asthma Hypertension Mother , age 78 of a "massive" stroke Stroke Other No family history of adverse response to anesthesia Social History Smoking Status: Former smoker Tobacco Type: Cigarettes Age Started Using Tobacco: 14; Age Quit Using Tobacco: 41; packs per day: 0.5; Second Hand Exposure: No; Do You Dip or Chew Tobacco: No; Hx Alcohol Use: No Hx Substance Use: No Preferred Language: Sri Lankan Communication Ability: Effective Visual Impairment: No Limitations Hearing Ability: Normal Forklift Driver Required: No Beliefs That Will Affect Care: None marital status: Current Living Situation: Spouse current occupational status: retired 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 Physical Exam Physical Exam: Blood pressure is 125/70, pulse 96 bpm, irregularly irregular. She is tachypneic. GENERAL: Patient in no acute distress. HEENT: Head is atraumatic, normocephalic. EOM's intact. Facies symmetric. No perioral cyanosis. NECK: No JVD. JVP is elevated. Carotid upstrokes are + 2 bilaterally. CHEST/LUNGS: Crackles at bilateral bases, scattered wheeze. CVS: S1 and S2 are irregularly irregular with a grade 1/6 basal systolic murmur. No diastolic murmurs. No gallops, or rubs. PMI is nondisplaced. No lifts, heaves, or thrills. No abdominal aortic or renal bruits. ABDOMINAL EXAM: Bowel sounds are present. EXTREMITIES: No clubbing or cyanosis. No edema. NEUROLOGIC EXAM: Patient is awake, alert, and oriented. Pleasant and cooperative. Answers questions appropriately. Speech is clear. Results & Data Vital Signs (Past 12 Hours) Vital Signs Temp Pulse Pulse Pulse Resp BP BP 03/30/25 07:47 36.4 C L 76 28 H 125/70 03/30/25 03:12 36.6 C 100 H 19 136/95 03/30/25 00:00 110 H Pulse Ox O2 Del Method 03/30/25 07:47 93 Room Air 03/30/25 03:12 93 Nasal Cannula 03/30/25 00:00 Laboratory Results Laboratory Results - last 24 hr 03/29/25 03/29/25 03/29/25 13:12 14:57 15:56 WBC 9.02 RBC 4.31 Hgb 13.3 Hct 40.3 MCV 93.5 MCH 30.9 MCHC 33.0 RDW Std Deviation 51.6 H RDW Coeff of Ambreen 14.9 H Plt Count 306 MPV 9.2 L Immature Gran % (Auto) 0.4 Neut % (Auto) 85.0 Lymph % (Auto) 7.8 Ross % (Auto) 5.8 Eos % (Auto) 0.9 Baso % (Auto) 0.1 Neut # (Auto) 7.67 H Lymph # (Auto) 0.70 L Ross # (Auto) 0.52 Eos # (Auto) 0.08 Baso # (Auto) 0.01 Immature Gran # (Auto) 0.04 VBG pH 7.42 H VBG pCO2 43 VBG pO2 34 VBG HCO3 28 VBG O2 Saturation < 60.0 VBG Base Excess 2.9 Sodium 135 L Potassium 4.0 Chloride 100 Carbon Dioxide 27 Anion Gap 8 BUN 16 Creatinine 0.83 Est Cr Clr Drug Dosing Not Reportable eGFR 72.11 BUN/Creatinine Ratio 19.3 Glucose 127 H POC Glucose Calcium 9.9 Phosphorus 3.1 Magnesium 1.3 L Total Bilirubin 0.5 AST 14 ALT 9 Alkaline Phosphatase 36 Troponin I High Sens 9.7 B-Natriuretic Peptide 650 H Total Protein 8.5 H Albumin 4.4 Globulin 4.1 H Albumin/Globulin Ratio 1.1 Lipase 18 Procalcitonin 0.04 TSH 3.029 Urine Color Yellow Urine Appearance Clear Urine pH 7.5 Ur Specific Souris 1.012 Urine Protein Negative Urine Glucose (UA) Negative Urine Ketones Negative Urine Blood Negative Urine Nitrite Negative Urine Bilirubin Negative Urine Urobilinogen Negative Ur Leukocyte Esterase Negative Adenovirus (PCR) Not Detected B. pertussis DNA (PCR) Not Detected B.parapertussis DNA PCR Not Detected C. pneumoniae DNA (PCR) Not Detected Coronavirus OC43 (PCR) Not Detected Coronavirus HKU1 (PCR) Not Detected Coronavirus 229E (PCR) Not Detected SARS-CoV-2 (PCR) Not Detected Coronavirus NL63 (PCR) Not Detected Human Metapneumovir PCR Not Detected Influenza Type A (PCR) Not Detected Influenza Type B (PCR) Not Detected M. pneumoniae (PCR) Not Detected Parainfluenza 1 (PCR) Not Detected Parainfluenza 2 (PCR) Not Detected Parainfluenza 3 (PCR) DETECTED A Parainfluenza 4 (PCR) Not Detected RSV (PCR) Not Detected Entero/Rhino (PCR) Not Detected 03/29/25 03/30/25 03/30/25 18:36 07:29 07:35 WBC 11.43 H RBC 3.92 L Hgb 11.9 L Hct 36.7 L MCV 93.6 MCH 30.4 MCHC 32.4 RDW Std Deviation 52.2 H RDW Coeff of Ambreen 15.2 H Plt Count 251 MPV 9.2 L Immature Gran % (Auto) Neut % (Auto) Lymph % (Auto) Ross % (Auto) Eos % (Auto) Baso % (Auto) Neut # (Auto) Lymph # (Auto) Ross # (Auto) Eos # (Auto) Baso # (Auto) Immature Gran # (Auto) VBG pH VBG pCO2 VBG pO2 VBG HCO3 VBG O2 Saturation VBG Base Excess Sodium 134 L Potassium 3.7 Chloride 100 Carbon Dioxide 28 Anion Gap 6 BUN 13 Creatinine 0.69 Est Cr Clr Drug Dosing 58.0 eGFR 88.78 BUN/Creatinine Ratio 18.8 Glucose 140 H POC Glucose 151 H 139 H Calcium 9.0 Phosphorus Magnesium 1.5 L Total Bilirubin AST ALT Alkaline Phosphatase Troponin I High Sens B-Natriuretic Peptide Total Protein Albumin Globulin Albumin/Globulin Ratio Lipase Procalcitonin TSH Urine Color Urine Appearance Urine pH Ur Specific Souris Urine Protein Urine Glucose (UA) Urine Ketones Urine Blood Urine Nitrite Urine Bilirubin Urine Urobilinogen Ur Leukocyte Esterase Adenovirus (PCR) B. pertussis DNA (PCR) B.parapertussis DNA PCR C. pneumoniae DNA (PCR) Coronavirus OC43 (PCR) Coronavirus HKU1 (PCR) Coronavirus 229E (PCR) SARS-CoV-2 (PCR) Coronavirus NL63 (PCR) Human Metapneumovir PCR Influenza Type A (PCR) Influenza Type B (PCR) M. pneumoniae (PCR) Parainfluenza 1 (PCR) Parainfluenza 2 (PCR) Parainfluenza 3 (PCR) Parainfluenza 4 (PCR) RSV (PCR) Entero/Rhino (PCR) Diagnostic Findings CTA HEAD/NECK, CT SCAN HEAD 03/29/25: Head CT without contrast CT angiogram of the neck CT angiogram of the brain with contrast Provided History: Weakness Comparison: None Technique: HEAD CT: Using multidetector thin collimation helical acquisition technique, axial, coronal and sagittal CT images from the skull base to the vertex were obtained without intravenous contrast. HEAD and NECK CTA: During rapid bolus intravenous injection of nonionic contrast material, axial images were obtained using thin collimation multidetector helical technique from the base of the neck through the of vertex of the head. This CT angiogram data was reconstructed at thin intervals with mild overlap. 3D reconstructions were obtained. The axial source images, multiplanar reformations, 3D reconstructions in both maximum intensity projection display and volume rendered models were reviewed. Dose reduction techniques were achieved by using automatic exposure control and/or adjustment of mA and/or kV according to patient size and/or use of iterative reconstruction technique. Findings: Head CT: There is no intracranial hemorrhage, mass effect, or midline shift. Davidson/white matter differentiation in both cerebral hemispheres is preserved. Ventricles are proportionate to the cerebral sulci. A rim calcified extra-axial density overlying the left frontal lobe measuring 8 mm may represent a meningioma. Head CTA demonstrates no aneurysm or stenosis of the major intracranial arteries. Neck CTA demonstrates calcification of the carotid bulbs bilaterally extending into the proximal ICA. No left ICA stenosis. At the proximal right ICA, there is a short segment of approximately 50 to 60% stenosis. The distal internal carotid arteries are widely patent. There is tortuosity of the distal internal carotid arteries. The origins of the great vessels from the aortic arch are patent. No mass is noted within the visualized portions of the cervical soft tissues or lung apices. Interstitial and alveolar pulmonary edema seen at the lung apices, right greater than left. Impression: 1. Head CTA demonstrates no aneurysm or stenosis of the major intracranial arteries 2. Neck CTA demonstrates atherosclerotic disease, on the right resulting in approximately 50 to 60% proximal ICA stenosis. The distal internal carotid arteries are tortuous and otherwise widely patent. 3. No intracranial hemorrhage on the noncontrast head CT. 4. Pulmonary edema seen at the lung apices. CXR 03/29/25: FINDINGS: Left subclavian pacer is in place. There is no pneumothorax or pleural effusion. Cardiomegaly with mild interstitial pulmonary edema. Right basilar densities favor atelectasis. Multiple old right-sided rib fractures are incidentally noted. IMPRESSION: 1. Cardiomegaly with mild interstitial pulmonary edema, similar to prior exam. 2. Right basilar densities suggestive of atelectasis. Medications Administered Medication List Apixaban (Apixaban 5 Mg Tablet) 5 mg PO BID DONTE Stop: 04/28/25 20:59 Last Admin: 03/30/25 09:13 Dose: 5 mg Documented By: Admin: 03/29/25 22:31 Dose: 5 mg Documented By: LMP Ascorbic Acid (Ascorbic Acid 500 Mg Tab) 500 mg PO DAILY DONTE Stop: 04/29/25 08:59 Last Admin: 03/30/25 09:14 Dose: 500 mg Documented By: MS Bupropion HCl (Bupropion Xl 300 Mg Tabcr) 300 mg PO QAM DONTE Stop: 04/29/25 08:59 Last Admin: 03/30/25 09:14 Dose: 300 mg Documented By: MS Clopidogrel Bisulfate (Clopidogrel Bisulfate 75 Mg Tab) 75 mg PO DAILY DONTE Stop: 04/29/25 08:59 Last Admin: 03/30/25 09:14 Dose: 75 mg Documented By: MS Diltiazem HCl (Diltiazem Hcl 240 Mg Capcr) 240 mg PO DAILY DONTE Stop: 04/29/25 08:59 Last Admin: 03/30/25 09:14 Dose: 240 mg Documented By: MS Donepezil HCl (Donepezil Hcl 5 Mg Tab) 5 mg PO DAILY DONTE Stop: 04/29/25 08:59 Last Admin: 03/30/25 09:14 Dose: 5 mg Documented By: MS Fenofibrate (Fenofibrate Nanocrystallized 48 Mg Tablet) 48 mg PO QAM DONTE Stop: 04/29/25 08:59 Last Admin: 03/30/25 09:14 Dose: 48 mg Documented By: MS Ferrous Sulfate (Ferrous Sulfate 325 Mg Tab) 325 mg PO DAILY DONTE Stop: 04/29/25 08:59 Last Admin: 03/30/25 09:14 Dose: 325 mg Documented By: MS Fluticasone Furoate (Fluticasone Furoate 100mcg 14 Puffs/Inhaler) 1 puffs INH DAILY DONTE Stop: 04/29/25 08:59 Last Admin: 03/30/25 09:16 Dose: 1 puffs Documented By: MS Diltiazem HCl 125 mg/ Dextrose 125 mls @ 5 mls/hr IV .Q24H DONTE; Protocol Stop: 04/28/25 17:14 Last Titration: 03/30/25 08:41 Dose: 10 mg/hr, 10 mls/hr Documented By: Co-signed By: FEDERICO Titration: 03/30/25 07:00 Dose: 10 mg/hr, 10 mls/hr Documented By: LMP Co-signed By: Admin: 03/30/25 02:38 Dose: 10 mg/hr, 10 mls/hr Documented By: LMP Co-signed By: MARY Titration: 03/30/25 02:38 Dose: Infused Documented By: LMP Co-signed By: ROBH Titration: 03/30/25 01:12 Dose: 10 mg/hr, 10 mls/hr Documented By: LMP Co-signed By: SURIS Titration: 03/29/25 19:55 Dose: 15 mg/hr, 15 mls/hr Documented By: SIRENA Co-signed By: PJP Titration: 03/29/25 18:48 Dose: 10 mg/hr, 10 mls/hr Documented By: KR Co-signed By: SIRENA Admin: 03/29/25 17:43 Dose: 5 mg/hr, 5 mls/hr Documented By: SIRENA Co-signed By: LAW Isosorbide Mononitrate (Isosorbide Ross Extended Rel 30 Mg Tabcr) 30 mg PO QAM [facility] Stop: 04/29/25 08:59 Last Admin: 03/30/25 09:14 Dose: 30 mg Documented By: MS Levothyroxine Sodium (Levothyroxine Sodium 50 Mcg Tablet) 50 mcg PO DAILYBB [facility] Stop: 04/29/25 06:29 Last Admin: 03/30/25 05:28 Dose: 50 mcg Documented By: LMP Loratadine (Loratadine 10 Mg Tab) 10 mg PO QAM DONTE Stop: 04/29/25 08:59 Last Admin: 03/30/25 09:14 Dose: 10 mg Documented By: MS Losartan Potassium (Losartan Potassium 50 Mg Tab) 50 mg PO DAILY DONTE Stop: 04/29/25 08:59 Last Admin: 03/30/25 09:14 Dose: 50 mg Documented By: MS Magnesium Oxide (Magnesium Oxide 400 Mg Tab) 400 mg PO DAILY DONTE Stop: 04/29/25 08:59 Last Admin: 03/30/25 09:13 Dose: 400 mg Documented By: MS Metoprolol Succinate (Metoprolol Succ 50mg Ext Rel Tab) 100 mg PO BID DONET Stop: 04/28/25 20:59 Last Admin: 03/30/25 09:14 Dose: 100 mg Documented By: Admin: 03/29/25 22:31 Dose: 100 mg Documented By: LMP Miscellaneous (Ibandronate 150 Mg Tablet--Order Awaiting Action) 1 each N/A QS DONTE Stop: 04/29/25 00:00 Last Admin: 03/30/25 09:19 Dose: Not Given Documented By: Admin: 03/30/25 01:11 Dose: Not Given Documented By: LMP Montelukast Sodium (Montelukast Sodium 10 Mg Tablet) 10 mg PO QPM DONTE Stop: 04/28/25 20:59 Last Admin: 03/29/25 22:30 Dose: 10 mg Documented By: LMP Pantoprazole Sodium (Pantoprazole 40 Mg Tab) 40 mg PO QAM DONTE Stop: 04/29/25 08:59 Last Admin: 03/30/25 09:14 Dose: 40 mg Documented By: MS Pramipexole Dihydrochloride (Pramipexole Dihydrochlo 0.25 Mg Tab) 0.25 mg PO QPM DONTE Stop: 04/28/25 20:59 Last Admin: 03/29/25 22:30 Dose: 0.25 mg Documented By: LMP Rosuvastatin Calcium (Rosuvastatin Calcium 20 Mg Tab) 40 mg PO DAILY DONTE Stop: 04/29/25 08:59 Last Admin: 03/30/25 09:14 Dose: 40 mg Documented By: MS Umeclidinium/Vilanterol (Umeclidinium/Vilanterol 62.5/25mcg 7 Puffs/Inhaler) 1 puffs INH DAILY DONTE Stop: 04/29/25 08:59 Last Admin: 03/30/25 09:15 Dose: 1 puffs Documented By: MS Venlafaxine HCl (Venlafaxine Hcl Xr 150 Mg Capxr) 150 mg PO HS DONTE Stop: 04/28/25 20:59 Last Admin: 03/29/25 22:30 Dose: 150 mg Documented By: LMP Vibegron (Vibegron 75 Mg Tab) 75 mg PO DAILY DONTE Stop: 04/29/25 08:59 Last Admin: 03/30/25 09:14 Dose: 75 mg Documented By: MS Vitamin B Complex (Vitamin B Complex Tab) 1 tab PO QAM DONTE Stop: 04/29/25 08:59 Last Admin: 03/30/25 09:14 Dose: 1 tab Documented By: MS Discontinued Medications Diltiazem HCl (Diltiazem Hcl 5 Mg/Ml 5 Ml Vial) 10 mg IV NOW STA Stop: 03/29/25 15:18 Last Admin: 03/29/25 15:32 Dose: 10 mg Documented By: LAW Co-signed By: SIRENA Sodium Chloride (Nss) 500 mls @ 999 mls/hr IV .Q31M ONE Stop: 03/29/25 13:40 Last Infusion: 03/29/25 13:56 Dose: Infused Documented By: Admin: 03/29/25 13:19 Dose: 999 mls/hr Documented By: FUENTES Acetaminophen (Ofirmev) 1,000 mg in 100 mls @ 400 mls/hr IV NOW STA Stop: 03/29/25 13:24 Last Admin: 03/29/25 13:19 Dose: Not Given Documented By: FUENTES Sodium Chloride (Nss) 500 mls @ 999 mls/hr IV .Q31M ONE Stop: 03/29/25 15:44 Last Infusion: 03/29/25 16:52 Dose: Infused Documented By: Admin: 03/29/25 15:32 Dose: 999 mls/hr Documented By: LAW Magnesium Sulfate/Dextrose (Magnesium Sulfate / D5w) 1 gm in 100 mls @ 100 mls/hr IV Q1H DONTE Stop: 03/29/25 17:13 Last Infusion: 03/29/25 17:46 Dose: Infused Documented By: Admin: 03/29/25 16:40 Dose: 100 mls/hr Documented By: Infusion: 03/29/25 16:36 Dose: Infused Documented By: Admin: 03/29/25 15:36 Dose: 100 mls/hr Documented By: LAW Ioversol (Optiray 320 125ml) 115 ml IV ONCE ONE Stop: 03/29/25 19:09 Last Admin: 03/29/25 19:08 Dose: 115 ml Documented By: GUILLERMO PG Care Time/CCT Total # of Minutes Spent Total Time Spent with Patient: Total time spent is greater than 50% in coordination of care (as documented) at patient's floor/unit and/or counseling patient:46 Coding [place] [address] INT INP/OBS CARE 3/75MIN Patient Type Established History Comprehensive Exam Comprehensive Medical Decision Making High Complexity Diagnoses Infection due to parainfluenza virus 3 B34.8 Atrial fibrillation with rapid ventricular response I48.91 Acute heart failure with preserved ejection fraction I50.31 Heart failure chronicity: acute Time Spent (min) 80 (3) (HFpEF) heart failure with preserved ejection fraction Heart failure chronicity: acute Qualified Code(s): I50.31 - Acute diastolic (congestive) heart failure
--- NOTE | 2025-03-30 11:56 | Pharmacy Report ---
Pharmacy Glycemic Short Note 2 - Date of Service March 30, 2025 - Glycemic Short BSG Results (Last 24 hours): 03/29/25 03/29/25 03/30/25 13:12 18:36 07:29 Glucose 127 H 140 H POC Glucose 151 H 03/30/25 03/30/25 07:35 11:18 Glucose POC Glucose 139 H 209 H OUTPATIENT ANTIDIABETIC REGIMEN: * Metformin 500 mg PO BIDM HbA1c: * 6.6% (03/11/25) ASSESSMENT: * 79 yo F admitted on 03/29/25 secondary to Afib with RVR and positive parainfluenza 3 infection. Pharmacy has been consulted to assist with inpatient glycemic management. Patient is a Type 2 diabetic as an outpatient. Please refer to outpatient regimen and most recent HbA1c above. * Patient ordered T2DM diet. Currently receiving Cardizem drip. * During recent admissions, patient has required either PO antidiabetic meds or minor insulin doses, if any, for adequate control. Currently ordered Novolog, with correction factor only. Lunchtime BSG was high at 209 mg/dL. Given this and stress of current admission, will add a carb ratio to start at lunchtime. Will loosen correction factor since carb ratio being added. Continue to hold basal. PLAN FOR INPATIENT GLYCEMIC CONTROL: * Hold outpatient oral diabetes medications * Basal insulin * None * Bolus insulin * NovoLog per scale ACHS or Q6hrs while NPO * Goal Range: Low 110 mg/dL - High 140 mg/dL * Correction Factor: 40 mg/dL/unit * Nutritional / Prandial insulin per carb ratio of 1 unit per 15 grams CHO consumed
[2025-03-30] MEDS: POTASSIUM CHLORIDE CRTAB 20 MEQ TABCR PO ONE (12:08)
[2025-03-30] MEDS: FUROSEMIDE 40 MG/4 ML VIAL IV ONE (12:08)
[2025-03-30] MEDS: INSULIN ASPART PER UNIT CHARGE SC SCH (12:15)
[2025-03-30] MEDS ORDERED: INSULIN ASPART PER UNIT CHARGE SC SCH (21:30)
[2025-03-31 06:05] LABS: Appearance Urine Clear (Clear); Bacteria Urine Automated None Seen (None Seen); Bilirubin Urine Negative (Negative); Blood Urine Negative (Negative); Color Urine Dark Yellow; Epithelial Cell Urine Auto 0-2 /hpf (0-2); Glucose Urine UA Negative (Negative); Ketones Urine Negative (Negative); Leukocyte Esterase Urine Negative (Negative); Nitrite Urine Negative (Negative); Protein Urine Trace (Negative); RBC Urine Automated 0-2 /hpf (0-2); Specific Gravity Urine 1.021 (1.000-1.030); Urobilinogen Urine Negative (Negative); WBC Urine Automated 0-5 /hpf (0-5); pH Urine 5.5 (4.5-7.5)
--- NOTE | 2025-03-31 09:38 | Electrocardiogram Report ---
Test Reason : Blood Pressure : */* mmHG Vent. Rate : 118 BPM Atrial Rate : * BPM P-R Int : * ms QRS Dur : 88 ms QT Int : 346 ms P-R-T Axes : * -44 33 degrees QTcB Int : 484 ms Atrial fibrillation with rapid ventricular response Left axis deviation Nonspecific ST and T wave abnormality Abnormal ECG When compared with ECG of 10-Mar-2025 19:26, No significant change was found Confirmed by Migue Ugalde ([id number]) on 03/31/2025 9:37:46 AM Referred By: Confirmed By: Migue Ugalde
--- NOTE | 2025-03-31 09:51 | Hospitalist Progress Note ---
Date of Service March 31, 2025 Assessment & Plan (1) Atrial fibrillation with rapid ventricular response: Plan: -given 10mg cardizem bolus in ER -cardizem drip -pt on cardizem 240mg PO -metoprolol 100mg Qdaily -eliquis -echo -cardiology consult appreciated -titrate off drip as tolerated (2) Parainfluenza infection: Plan: -supportive care -supplemental 02 -Tessalon -mucinex (3) Type 2 diabetes mellitus: Plan: -Glycemic control as per pharmacy -metformin (4) GERD (gastroesophageal reflux disease): Plan: -protonix (5) Anxiety: Plan: -lorazepam (6) Depression: Plan: -venlafaxine (7) Hyperlipidemia: Plan: -crestor Admission and Anticipated Discharge Date Admission Date: March 29, 2025 Subjective No events overnight. Pt appears at baseline this am, no confusion noted. Review of Systems Review of Systems: SOB, productive cough, CONST: Negative for fever, body aches and chills. HENT: Negative for neck pain/stiffness, headache, congestion, sore throat, swelling. EYES: Negative for discharge/pain or vision changes. RESP: Negative for cough/hemoptysis and shortness of breath. CV: Negative chest pain, difficulty breathing, palpitations. ABD: Negative pain, nausea, vomiting. : Negative increase frequency, dysuria, blood in urine or stool. MUSC: Negative for muscle aches, edema. SKIN: Negative rash, lesions/sores. NEURO: Negative headache, dizziness, weakness. Physical Exam Physical Exam: GENERAL APPEARANCE NAD, activity normal for age, well developed/ well nourished, no cyanosis, pallor, or diaphoresis. EYES lids/conjunctiva normal. EARS/NOSE/THROAT Mucous membranes moist, nares normal, lips/teeth normal uvula midline without oral pharyngeal erythema, exudate or swelling TMs normal bilaterally. No lymphangitis/lymphedema. HEAD/NECK normocephalic atraumatic, no facial trauma, neck is supple. RESPIRATORY respiratory effort normal, speaks in full sentences, no tripod position, no accessory muscle use. Lungs clear to auscultation without rhonchi, wheezes, rales CARDIAC Regular rate and rhythm, no edema. ABDOMINAL Soft, ND/NT. No evidence of fluid wave. No pulsatile masses on exam, rebound tenderness, Norwood sign or pain over Mcburney's point. MUSCLES/EXTREMITIES No abnormal range of motion, no swelling. SKIN Warm, pink and dry. No rashes, dermatoses, petechiae or lesions. NEUROLOGICAL Speech is clear and appropriate. Normal level of consciousness. Gait and coordination are normal. 5/5 strength in all extremities. PSYCH Normal mood and affect. Judgement/competence is appropriate Results & Data Results & Data Vital Signs (Past 12 Hours) Vital Signs Temp Pulse Pulse Resp BP Pulse Ox O2 Del Method 03/31/25 07:21 108 H 03/31/25 07:04 36.4 C L 94 H 18 128/70 92 Nasal Cannula 03/31/25 03:19 36.8 C 77 16 114/86 93 Nasal Cannula 03/31/25 00:00 112 H 03/30/25 23:04 37.6 C H 97 H 19 132/79 93 Nasal Cannula O2 Flow Rate 03/31/25 07:21 03/31/25 07:04 5 03/31/25 03:19 03/31/25 00:00 03/30/25 23:04 PG Care Time/CCT Total # of Minutes Spent Total Time Spent with Patient: Total time spent is greater than 50% in coordination of care (as documented) at patient's floor/unit and/or counseling patient: Coding Level of Care Code 76988 SUB INP/OBS CARE 2/35MIN Diagnoses Atrial fibrillation with rapid ventricular response I48.91 Parainfluenza infection B34.8 Type 2 diabetes mellitus E11.9 GERD (gastroesophageal reflux disease) K21.9 Anxiety F41.9 Depression F32.9 Hyperlipidemia E78.5
--- NOTE | 2025-03-31 09:52 | Cardiology Progress Note ---
Date of Service March 31, 2025 Assessment & Plan (1) Infection due to parainfluenza virus 3: (2) Atrial fibrillation with rapid ventricular response: (3) (HFpEF) heart failure with preserved ejection fraction: Plan Mrs. James is a 79-year-old female with a history of CAD s/p RCA PCI, Permanent Atrial Fibrillation, Atrial Flutter, Hypertension, Dyslipidemia, Type 2 Diabetes Mellitus, Asthma, and Tachy-Doyle Syndrome s/p Dual Chamber Pacemaker who presented to [facility] [place] ER on 03/29/25 complaining of sinus congestion, cough, generalized weakness and malaise/disorientation over the preceding 24-48 hours. She tested positive for Parainfluenza Virus 3, she was atrial fibrillation with rates in the 110's 120's, and her CXR was consistent with mild pulmonary edema. Patient admitted to the PCU. Supportive treatment for parainfluenza virus, and she was placed on a Cardizem drip in addition to her Diltiazem CD 240 mg daily and Metoprolol Succinate ER 100 mg b.i.d. V-rate appears to be controlled in the 90's to low 100's according to her campus monitor. Patient continues to improve, using her incentive spirometer with a flutter valve which seems to be loosening up her cough. She denies any fever, chills, SOB, or chest pain. Echocardiogram showed normal LV systolic function with an LVEF of 55% to 60%. Recommend the followin. Stop Cardizem drip -- rate has been controlled. 2. Continue Metoprolol Succinate ER 100 mg b.i.d.. 3. Continue Diltiazem CD 240 mg daily. 4. Continue Eliquis 5 mg b.i.d.. 5. Correct hypomagnesemia. 6. Continue Imdur ER 30 mg daily. 7. Continue Losartan 50 mg daily. 8. Continue Rosuvastatin 40 mg. 9. Continue Plavix 75 mg daily. 10. Monitor I&O's. 11. Monitor daily body weights. 12. Low sodium diet. 13. Continue inhalers/nebulizers as directed. We will continue to follow her while hospitalized and following discharge. Admission and Anticipated Discharge Date Admission Date: March 29, 2025 Subjective Mrs. James continues to improve, using her incentive spirometer with a flutter valve which seems to be loosening up her cough. She denies any fever, chills, SOB, or chest pain. Review of Systems Review of Systems: -- As per HPI. Physical Exam 2 Physical Exam: Blood pressure is 128/70, pulse 98 bpm, irregularly irregular. She is tachypneic. GENERAL: Patient in no acute distress. HEENT: Head is atraumatic, normocephalic. EOM's intact. Facies symmetric. No perioral cyanosis. NECK: No JVD. JVP is not elevated. Carotid upstrokes are + 2 bilaterally. CHEST/LUNGS: Scattered wheezes. CVS: S1 and S2 are irregularly irregular with a grade 1/6 basal systolic murmur. No diastolic murmurs. No gallops, or rubs. PMI is nondisplaced. No lifts, heaves, or thrills. No abdominal aortic or renal bruits. ABDOMINAL EXAM: Bowel sounds are present. EXTREMITIES: No clubbing or cyanosis. No edema. NEUROLOGIC EXAM: Patient is awake, alert, and interactive. Pleasant and cooperative. Answers questions appropriately. Speech is clear. Results & Data Vital Signs (Past 12 Hours) Vital Signs Temp Pulse Pulse Resp BP Pulse Ox O2 Del Method 03/31/25 07:21 108 H 03/31/25 07:04 36.4 C L 94 H 18 128/70 92 Nasal Cannula 03/31/25 03:19 36.8 C 77 16 114/86 93 Nasal Cannula 03/31/25 00:00 112 H 03/30/25 23:04 37.6 C H 97 H 19 132/79 93 Nasal Cannula O2 Flow Rate 03/31/25 07:21 03/31/25 07:04 5 03/31/25 03:19 03/31/25 00:00 03/30/25 23:04 Laboratory Results Laboratory Results - last 24 hr 03/30/25 03/30/25 03/30/25 11:18 16:03 20:38 POC Glucose 209 H 141 H 129 H Urine Color Urine Appearance Urine pH Ur Specific [place] Urine Protein Urine Glucose (UA) Urine Ketones Urine Blood Urine Nitrite Urine Bilirubin Urine Urobilinogen Ur Leukocyte Esterase Urine WBC (Auto) Urine RBC (Auto) U Hyaline Cast (Auto) U Epithel Cells (Auto) Urine Bacteria (Auto) 03/31/25 03/31/25 07:03 Unknown POC Glucose 138 H Urine Color Dark Yellow Urine Appearance Clear Urine pH 5.5 Ur Specific [place] 1.021 Urine Protein Trace H Urine Glucose (UA) Negative Urine Ketones Negative Urine Blood Negative Urine Nitrite Negative Urine Bilirubin Negative Urine Urobilinogen Negative Ur Leukocyte Esterase Negative Urine WBC (Auto) 0-5 Urine RBC (Auto) 0-2 U Hyaline Cast (Auto) 3-5 H U Epithel Cells (Auto) 0-2 Urine Bacteria (Auto) None Seen Medications Administered Medication List Apixaban (Apixaban 5 Mg Tablet) 5 mg PO BID DONTE Stop: 04/28/25 20:59 Last Admin: 03/31/25 08:11 Dose: 5 mg Documented By: Admin: 03/30/25 19:52 Dose: 5 mg Documented By: Admin: 03/30/25 09:13 Dose: 5 mg Documented By: Admin: 03/29/25 22:31 Dose: 5 mg Documented By: LEONORA Ascorbic Acid (Ascorbic Acid 500 Mg Tab) 500 mg PO DAILY DONTE Stop: 04/29/25 08:59 Last Admin: 03/31/25 08:10 Dose: 500 mg Documented By: Admin: 03/30/25 09:14 Dose: 500 mg Documented By: Bupropion HCl (Bupropion Xl 300 Mg Tabcr) 300 mg PO QAM DONTE Stop: 04/29/25 08:59 Last Admin: 03/31/25 08:11 Dose: 300 mg Documented By: Admin: 03/30/25 09:14 Dose: 300 mg Documented By: MS Clopidogrel Bisulfate (Clopidogrel Bisulfate 75 Mg Tab) 75 mg PO DAILY DONTE Stop: 04/29/25 08:59 Last Admin: 03/31/25 08:10 Dose: 75 mg Documented By: Admin: 03/30/25 09:14 Dose: 75 mg Documented By: Diltiazem HCl (Diltiazem Hcl 240 Mg Capcr) 240 mg PO DAILY DONTE Stop: 04/29/25 08:59 Last Admin: 03/31/25 08:11 Dose: 240 mg Documented By: Admin: 03/30/25 09:14 Dose: 240 mg Documented By: Donepezil HCl (Donepezil Hcl 5 Mg Tab) 5 mg PO DAILY DONTE Stop: 04/29/25 08:59 Last Admin: 03/31/25 08:10 Dose: 5 mg Documented By: Admin: 03/30/25 09:14 Dose: 5 mg Documented By: MS Fenofibrate (Fenofibrate Nanocrystallized 48 Mg Tablet) 48 mg PO QAM [facility] Stop: 04/29/25 08:59 Last Admin: 03/31/25 08:12 Dose: 48 mg Documented By: Admin: 03/30/25 09:14 Dose: 48 mg Documented By: MS Ferrous Sulfate (Ferrous Sulfate 325 Mg Tab) 325 mg PO DAILY [facility] Stop: 04/29/25 08:59 Last Admin: 03/31/25 08:10 Dose: 325 mg Documented By: Admin: 03/30/25 09:14 Dose: 325 mg Documented By: MS Fluticasone Furoate (Fluticasone Furoate 100mcg 14 Puffs/Inhaler) 1 puffs INH DAILY [facility] Stop: 04/29/25 08:59 Last Admin: 03/31/25 08:12 Dose: 1 puffs Documented By: Admin: 03/30/25 09:16 Dose: 1 puffs Documented By: MS Diltiazem HCl 125 mg/ Dextrose 125 mls @ 0 mls/hr IV .Q0M DONTE; Protocol Stop: 04/28/25 17:14 Last Titration: 03/31/25 09:42 Dose: 0 mg/hr, 0 mls/hr Documented By: KAYLEY Co-signed By: BEATRIS Titration: 03/31/25 07:16 Dose: 5 mg/hr, 5 mls/hr Documented By: LMP Co-signed By: KAYLEY Admin: 03/30/25 23:34 Dose: 5 mg/hr, 5 mls/hr Documented By: LMP Co-signed By: MILLER Titration: 03/30/25 21:38 Dose: Infused Documented By: LMP Co-signed By: MILLER Titration: 03/30/25 20:15 Dose: 5 mg/hr, 5 mls/hr Documented By: LMP Co-signed By: MILLER Titration: 03/30/25 20:04 Dose: 10 mg/hr, 10 mls/hr Documented By: LMP Co-signed By: PRECIOUS Titration: 03/30/25 15:36 Dose: 0 mg/hr, 0 mls/hr Documented By: Co-signed By: FEDERICO Titration: 03/30/25 12:56 Dose: 5 mg/hr, 5 mls/hr Documented By: Co-signed By: FEDERICO Titration: 03/30/25 08:41 Dose: 10 mg/hr, 10 mls/hr Documented By: Co-signed By: FEDERICO Titration: 03/30/25 07:00 Dose: 10 mg/hr, 10 mls/hr Documented By: LEONORA Co-signed By: Admin: 03/30/25 02:38 Dose: 10 mg/hr, 10 mls/hr Documented By: LMP Co-signed By: MARY Titration: 03/30/25 02:38 Dose: Infused Documented By: LMP Co-signed By: DAH Titration: 03/30/25 01:12 Dose: 10 mg/hr, 10 mls/hr Documented By: LEONORA Co-signed By: CLEMENTINA Titration: 03/29/25 19:55 Dose: 15 mg/hr, 15 mls/hr Documented By: SIRENA Co-signed By: JUAN Titration: 03/29/25 18:48 Dose: 10 mg/hr, 10 mls/hr Documented By: KR Co-signed By: SIRENA Admin: 03/29/25 17:43 Dose: 5 mg/hr, 5 mls/hr Documented By: SIRENA Co-signed By: LAW Insulin Aspart (Insulin Aspart Per Unit Charge) 0 units SC ACHS DONTE Stop: 04/29/25 11:44 Last Admin: 03/31/25 08:19 Dose: 4 units Documented By: KAYLEY Co-signed By: OPAL Admin: 03/30/25 20:45 Dose: Not Given Documented By: Admin: 03/30/25 17:06 Dose: 2 units Documented By: Co-signed By: FEDERICO Admin: 03/30/25 12:15 Dose: 3 units Documented By: Co-signed By: MARIVEL Isosorbide Mononitrate (Isosorbide [place] Extended Rel 30 Mg Tabcr) 30 mg PO QAM DONTE Stop: 04/29/25 08:59 Last Admin: 03/31/25 08:10 Dose: 30 mg Documented By: Admin: 03/30/25 09:14 Dose: 30 mg Documented By: Levothyroxine Sodium (Levothyroxine Sodium 50 Mcg Tablet) 50 mcg PO DAILYBB [facility] Stop: 04/29/25 06:29 Last Admin: 03/31/25 05:42 Dose: 50 mcg Documented By: Admin: 03/30/25 05:28 Dose: 50 mcg Documented By: LEONORA Loratadine (Loratadine 10 Mg Tab) 10 mg PO QAM DONTE Stop: 04/29/25 08:59 Last Admin: 03/31/25 08:10 Dose: 10 mg Documented By: Admin: 03/30/25 09:14 Dose: 10 mg Documented By: Losartan Potassium (Losartan Potassium 50 Mg Tab) 50 mg PO DAILY DONTE Stop: 04/29/25 08:59 Last Admin: 03/31/25 08:11 Dose: 50 mg Documented By: Admin: 03/30/25 09:14 Dose: 50 mg Documented By: Magnesium Oxide (Magnesium Oxide 400 Mg Tab) 400 mg PO DAILY DONTE Stop: 04/29/25 08:59 Last Admin: 03/31/25 08:20 Dose: 400 mg Documented By: Admin: 03/30/25 09:13 Dose: 400 mg Documented By: Metoprolol Succinate (Metoprolol Succ 50mg Ext Rel Tab) 100 mg PO BID DONTE Stop: 04/28/25 20:59 Last Admin: 03/31/25 08:11 Dose: 100 mg Documented By: Admin: 03/30/25 19:52 Dose: 100 mg Documented By: Admin: 03/30/25 09:14 Dose: 100 mg Documented By: Admin: 03/29/25 22:31 Dose: 100 mg Documented By: LEONORA Miscellaneous (Ibandronate 150 Mg Tablet--Order Awaiting Action) 1 each N/A QS [facility] Stop: 04/29/25 00:00 Last Admin: 03/31/25 08:12 Dose: Not Given Documented By: Admin: 03/31/25 00:00 Dose: Not Given Documented By: Admin: 03/30/25 16:59 Dose: Not Given Documented By: Admin: 03/30/25 09:19 Dose: Not Given Documented By: Admin: 03/30/25 01:11 Dose: Not Given Documented By: LEONORA Montelukast Sodium (Montelukast Sodium 10 Mg Tablet) 10 mg PO QPM DONTE Stop: 04/28/25 20:59 Last Admin: 03/30/25 19:53 Dose: 10 mg Documented By: Admin: 03/29/25 22:30 Dose: 10 mg Documented By: LMP Pantoprazole Sodium (Pantoprazole 40 Mg Tab) 40 mg PO QAM DONTE Stop: 04/29/25 08:59 Last Admin: 03/31/25 08:10 Dose: 40 mg Documented By: Admin: 03/30/25 09:14 Dose: 40 mg Documented By: MS Pramipexole Dihydrochloride (Pramipexole Dihydrochlo 0.25 Mg Tab) 0.25 mg PO QPM DONTE Stop: 04/28/25 20:59 Last Admin: 03/30/25 19:52 Dose: 0.25 mg Documented By: Admin: 03/29/25 22:30 Dose: 0.25 mg Documented By: LMP Rosuvastatin Calcium (Rosuvastatin Calcium 20 Mg Tab) 40 mg PO DAILY DONTE Stop: 04/29/25 08:59 Last Admin: 03/31/25 08:10 Dose: 40 mg Documented By: Admin: 03/30/25 09:14 Dose: 40 mg Documented By: MS Umeclidinium/Vilanterol (Umeclidinium/Vilanterol 62.5/25mcg 7 Puffs/Inhaler) 1 puffs INH DAILY DONTE Stop: 04/29/25 08:59 Last Admin: 03/31/25 08:12 Dose: 1 puffs Documented By: Admin: 03/30/25 09:15 Dose: 1 puffs Documented By: MS Venlafaxine HCl (Venlafaxine Hcl Xr 150 Mg Capxr) 150 mg PO HS DONTE Stop: 04/28/25 20:59 Last Admin: 03/30/25 19:52 Dose: 150 mg Documented By: Admin: 03/29/25 22:30 Dose: 150 mg Documented By: LMP Vibegron (Vibegron 75 Mg Tab) 75 mg PO DAILY DONTE Stop: 04/29/25 08:59 Last Admin: 03/31/25 08:10 Dose: 75 mg Documented By: Admin: 03/30/25 09:14 Dose: 75 mg Documented By: MS Vitamin B Complex (Vitamin B Complex Tab) 1 tab PO QAM DONTE Stop: 04/29/25 08:59 Last Admin: 03/31/25 08:10 Dose: 1 tab Documented By: Admin: 03/30/25 09:14 Dose: 1 tab Documented By: Discontinued Medications Diltiazem HCl (Diltiazem Hcl 5 Mg/Ml 5 Ml Vial) 10 mg IV NOW STA Stop: 03/29/25 15:18 Last Admin: 03/29/25 15:32 Dose: 10 mg Documented By: LAW Co-signed By: SIRENA Furosemide (Furosemide 40 Mg/4 Ml Vial) 60 mg IV ONE ONE Stop: 03/30/25 11:27 Last Admin: 03/30/25 12:08 Dose: 60 mg Documented By: Sodium Chloride (Nss) 500 mls @ 999 mls/hr IV .Q31M ONE Stop: 03/29/25 13:40 Last Infusion: 03/29/25 13:56 Dose: Infused Documented By: Admin: 03/29/25 13:19 Dose: 999 mls/hr Documented By: FUENTES Acetaminophen (Ofirmev) 1,000 mg in 100 mls @ 400 mls/hr IV NOW STA Stop: 03/29/25 13:24 Last Admin: 03/29/25 13:19 Dose: Not Given Documented By: FUENTES Sodium Chloride (Nss) 500 mls @ 999 mls/hr IV .Q31M ONE Stop: 03/29/25 15:44 Last Infusion: 03/29/25 16:52 Dose: Infused Documented By: Admin: 03/29/25 15:32 Dose: 999 mls/hr Documented By: LAW Magnesium Sulfate/Dextrose (Magnesium Sulfate / D5w) 1 gm in 100 mls @ 100 mls/hr IV Q1H DONTE Stop: 03/29/25 17:13 Last Infusion: 03/29/25 17:46 Dose: Infused Documented By: Admin: 03/29/25 16:40 Dose: 100 mls/hr Documented By: Infusion: 03/29/25 16:36 Dose: Infused Documented By: Admin: 03/29/25 15:36 Dose: 100 mls/hr Documented By: LAW Ioversol (Optiray 320 125ml) 115 ml IV ONCE ONE Stop: 03/29/25 19:09 Last Admin: 03/29/25 19:08 Dose: 115 ml Documented By: GUILLERMO Potassium Chloride (Potassium Chloride Crtab 20 Meq Tabcr) 20 meq PO NOW ONE Stop: 03/30/25 11:28 Last Admin: 03/30/25 12:08 Dose: 20 meq Documented By: PG Care Time/CCT Total # of Minutes Spent Total Time Spent with Patient: Total time spent is greater than 50% in coordination of care (as documented) at patient's floor/unit and/or counseling patient:38 Coding [place] [address] SUB INP/OBS CARE 3/50MIN Patient Type Established History Detailed Exam Detailed Medical Decision Making High Complexity Diagnoses Infection due to parainfluenza virus 3 B34.8 Atrial fibrillation with rapid ventricular response I48.91 Acute heart failure with preserved ejection fraction I50.31 Heart failure chronicity: acute Time Spent (min) 52 (3) (HFpEF) heart failure with preserved ejection fraction Heart failure chronicity: acute Qualified Code(s): I50.31 - Acute diastolic (congestive) heart failure
[2025-03-31] MEDS: ACETAMINOPHEN 325 MG TAB PO PRN (12:52)
[2025-03-31] MEDS: guaiFENesin 600 MG TABCR PO SCH (20:38)
--- NOTE | 2025-04-01 10:33 | Cardiology Progress Note ---
Date of Service April 01, 2025 Assessment & Plan (1) Infection due to parainfluenza virus 3: (2) Atrial fibrillation with rapid ventricular response: (3) (HFpEF) heart failure with preserved ejection fraction: Plan Mrs. James is a 79-year-old female with a history of CAD s/p RCA PCI, Permanent Atrial Fibrillation, Atrial Flutter, Hypertension, Dyslipidemia, Type 2 Diabetes Mellitus, Asthma, and Tachy-Doyle Syndrome s/p Dual Chamber Pacemaker who presented to [facility] ER on 03/29/25 complaining of sinus congestion, cough, generalized weakness and malaise/disorientation over the preceding 24-48 hours. She tested positive for Parainfluenza Virus 3, she was atrial fibrillation with rates in the 110's 120's, and her CXR was consistent with mild pulmonary edema. Patient admitted to the PCU. Supportive treatment for parainfluenza virus, and she was placed on a Cardizem drip in addition to her Diltiazem CD 240 mg daily and Metoprolol Succinate ER 100 mg b.i.d.. Her heart rate was very well controlled on that regimen. Patient is being seen in , she is ambulating in her room and no supplemental O2 is necessary as her O2 saturations are staying up. Cardizem drip discontinued yesterday, now her ventricular response rate is up. She doesn't have any symptoms attributable to her A-Fib. Echocardiogram showed normal LV systolic function with an LVEF of 55% to 60%. Recommend the followin. Increase Metoprolol Succinate ER to 150 mg b.i.d.. 2. Continue Diltiazem CD 240 mg daily. 3. Continue Eliquis 5 mg b.i.d.. 4. Continue Imdur ER 30 mg daily. 5. Continue Losartan 50 mg daily. 6. Continue Rosuvastatin 40 mg. 7. Continue Plavix 75 mg daily. 8. Monitor I&O's. 9. Monitor daily body weights. 10. Low sodium diet. 11. Continue inhalers/nebulizers as directed. 12. Continue incentive spirometer with flutter valve. We will continue to follow her while hospitalized and following discharge. Admission and Anticipated Discharge Date Admission Date: March 29, 2025 Subjective Mrs. James is being seen in , she is ambulating in her room and no supplemental O2 is necessary as her O2 saturations are staying up. Cardizem drip discontinued yesterday, now her ventricular response rate is up. She doesn't have any symptoms attributable to her A-Fib. Review of Systems Review of Systems: -- As per HPI. Physical Exam Physical Exam: Blood pressure is 111/86, pulse 112 bpm, irregularly irregular. GENERAL: Patient in no acute distress. HEENT: Head is atraumatic, normocephalic. EOM's intact. Facies symmetric. No perioral cyanosis. NECK: No JVD. JVP is not elevated. Carotid upstrokes are + 2 bilaterally. CHEST/LUNGS: Scattered wheezes. CVS: S1 and S2 are irregularly irregular and tachycardic with a grade 1/6 basal systolic murmur. No diastolic murmurs. No gallops, or rubs. PMI is nondisplaced. No lifts, heaves, or thrills. No abdominal aortic or renal bruits. ABDOMINAL EXAM: Bowel sounds are present. EXTREMITIES: No clubbing or cyanosis. No edema. NEUROLOGIC EXAM: Patient is awake, alert, and interactive. Pleasant and cooperative. Answers questions appropriately. Speech is clear. Results & Data Vital Signs (Past 12 Hours) Vital Signs Temp Pulse Pulse Resp BP Pulse Ox O2 Del Method 04/01/25 08:15 36.4 C L 123 H 20 111/86 93 Room Air 04/01/25 03:17 36.5 C 92 H 21 110/78 96 Nasal Cannula 03/31/25 23:21 Nasal Cannula 03/31/25 23:13 95 H 03/31/25 23:08 36.9 C 74 21 101/74 95 Nasal Cannula O2 Flow Rate 04/01/25 08:15 04/01/25 03:17 03/31/25 23:21 5 03/31/25 23:13 03/31/25 23:08 Laboratory Results Laboratory Results - last 24 hr 03/31/25 03/31/25 03/31/25 11:20 16:25 20:42 POC Glucose 154 H 154 H 161 H 04/01/25 07:17 POC Glucose 129 H Medications Administered Medication List Acetaminophen (Acetaminophen 325 Mg Tab) 650 mg PO Q4H PRN PRN Reason: pain/fever Stop: 04/28/25 16:37 Last Admin: 03/31/25 20:37 Dose: 650 mg Documented By: Admin: 03/31/25 16:51 Dose: 650 mg Documented By: Admin: 03/31/25 12:52 Dose: 650 mg Documented By: KAYLEY Apixaban (Apixaban 5 Mg Tablet) 5 mg PO BID DONTE Stop: 04/28/25 20:59 Last Admin: 04/01/25 08:50 Dose: 5 mg Documented By: Admin: 03/31/25 20:38 Dose: 5 mg Documented By: Admin: 03/31/25 08:11 Dose: 5 mg Documented By: Admin: 03/30/25 19:52 Dose: 5 mg Documented By: Admin: 03/30/25 09:13 Dose: 5 mg Documented By: Admin: 03/29/25 22:31 Dose: 5 mg Documented By: LEONORA Ascorbic Acid (Ascorbic Acid 500 Mg Tab) 500 mg PO DAILY DONTE Stop: 04/29/25 08:59 Last Admin: 04/01/25 08:51 Dose: 500 mg Documented By: Admin: 03/31/25 08:10 Dose: 500 mg Documented By: Admin: 03/30/25 09:14 Dose: 500 mg Documented By: Bupropion HCl (Bupropion Xl 300 Mg Tabcr) 300 mg PO QAM DONTE Stop: 04/29/25 08:59 Last Admin: 04/01/25 08:51 Dose: 300 mg Documented By: Admin: 03/31/25 08:11 Dose: 300 mg Documented By: Admin: 03/30/25 09:14 Dose: 300 mg Documented By: Clopidogrel Bisulfate (Clopidogrel Bisulfate 75 Mg Tab) 75 mg PO DAILY DONTE Stop: 04/29/25 08:59 Last Admin: 04/01/25 08:51 Dose: 75 mg Documented By: Admin: 03/31/25 08:10 Dose: 75 mg Documented By: Admin: 03/30/25 09:14 Dose: 75 mg Documented By: Diltiazem HCl (Diltiazem Hcl 240 Mg Capcr) 240 mg PO DAILY DONTE Stop: 04/29/25 08:59 Last Admin: 04/01/25 08:52 Dose: 240 mg Documented By: Admin: 03/31/25 08:11 Dose: 240 mg Documented By: Admin: 03/30/25 09:14 Dose: 240 mg Documented By: Donepezil HCl (Donepezil Hcl 5 Mg Tab) 5 mg PO DAILY DONTE Stop: 04/29/25 08:59 Last Admin: 04/01/25 08:52 Dose: 5 mg Documented By: Admin: 03/31/25 08:10 Dose: 5 mg Documented By: Admin: 03/30/25 09:14 Dose: 5 mg Documented By: MS Fenofibrate (Fenofibrate Nanocrystallized 48 Mg Tablet) 48 mg PO QAM DONTE Stop: 04/29/25 08:59 Last Admin: 04/01/25 08:53 Dose: 48 mg Documented By: Admin: 03/31/25 08:12 Dose: 48 mg Documented By: Admin: 03/30/25 09:14 Dose: 48 mg Documented By: MS Ferrous Sulfate (Ferrous Sulfate 325 Mg Tab) 325 mg PO DAILY DONTE Stop: 04/29/25 08:59 Last Admin: 04/01/25 08:52 Dose: 325 mg Documented By: Admin: 03/31/25 08:10 Dose: 325 mg Documented By: Admin: 03/30/25 09:14 Dose: 325 mg Documented By: MS Fluticasone Furoate (Fluticasone Furoate 100mcg 14 Puffs/Inhaler) 1 puffs INH DAILY DONTE Stop: 04/29/25 08:59 Last Admin: 04/01/25 08:53 Dose: 1 puffs Documented By: Admin: 03/31/25 08:12 Dose: 1 puffs Documented By: Admin: 03/30/25 09:16 Dose: 1 puffs Documented By: Guaifenesin (Guaifenesin 600 Mg Tabcr) 600 mg PO Q12 DONTE Stop: 04/30/25 20:59 Last Admin: 04/01/25 08:53 Dose: 600 mg Documented By: Admin: 03/31/25 20:38 Dose: 600 mg Documented By: DEBORAH Diltiazem HCl 125 mg/ Dextrose 125 mls @ 0 mls/hr IV .Q0M DONTE; Protocol Stop: 04/28/25 17:14 Last Admin: 03/31/25 13:10 Dose: Not Given Documented By: Titration: 03/31/25 11:30 Dose: Infused Documented By: GG Co-signed By: CRW Titration: 03/31/25 09:42 Dose: 0 mg/hr, 0 mls/hr Documented By: GG Co-signed By: MP Titration: 03/31/25 07:16 Dose: 5 mg/hr, 5 mls/hr Documented By: LMP Co-signed By: KAYLEY Admin: 03/30/25 23:34 Dose: 5 mg/hr, 5 mls/hr Documented By: LMP Co-signed By: MILLER Titration: 03/30/25 21:38 Dose: Infused Documented By: LMP Co-signed By: MILLER Titration: 03/30/25 20:15 Dose: 5 mg/hr, 5 mls/hr Documented By: LMP Co-signed By: MILLER Titration: 03/30/25 20:04 Dose: 10 mg/hr, 10 mls/hr Documented By: LMP Co-signed By: PRECIOUS Titration: 03/30/25 15:36 Dose: 0 mg/hr, 0 mls/hr Documented By: MS Co-signed By: KEG Titration: 03/30/25 12:56 Dose: 5 mg/hr, 5 mls/hr Documented By: MS Co-signed By: KEG Titration: 03/30/25 08:41 Dose: 10 mg/hr, 10 mls/hr Documented By: MS Co-signed By: KEG Titration: 03/30/25 07:00 Dose: 10 mg/hr, 10 mls/hr Documented By: LMP Co-signed By: MS Admin: 03/30/25 02:38 Dose: 10 mg/hr, 10 mls/hr Documented By: LMP Co-signed By: DAH Titration: 03/30/25 02:38 Dose: Infused Documented By: LMP Co-signed By: DAH Titration: 03/30/25 01:12 Dose: 10 mg/hr, 10 mls/hr Documented By: LMP Co-signed By: JMS Titration: 03/29/25 19:55 Dose: 15 mg/hr, 15 mls/hr Documented By: JVIELKA Co-signed By: PJP Titration: 03/29/25 18:48 Dose: 10 mg/hr, 10 mls/hr Documented By: KR Co-signed By: SIRENA Admin: 03/29/25 17:43 Dose: 5 mg/hr, 5 mls/hr Documented By: SIRENA Co-signed By: LAW Insulin Aspart (Insulin Aspart Per Unit Charge) 0 units SC ACHS [facility] Stop: 04/29/25 11:44 Last Admin: 04/01/25 08:48 Dose: 3 units Documented By: VITA Co-signed By: OPAL Admin: 03/31/25 21:26 Dose: 1 units Documented By: DEBORAH Co-signed By: JEM Admin: 03/31/25 16:51 Dose: 2 units Documented By: KAYLEY Co-signed By: CHARITY Admin: 03/31/25 11:39 Dose: 5 units Documented By: KAYLEY Co-signed By: MADDI Admin: 03/31/25 08:19 Dose: 4 units Documented By: KAYLEY Co-signed By: OPAL Admin: 03/30/25 20:45 Dose: Not Given Documented By: Admin: 03/30/25 17:06 Dose: 2 units Documented By: Co-signed By: FEDERICO Admin: 03/30/25 12:15 Dose: 3 units Documented By: Co-signed By: MARIVEL Isosorbide Mononitrate (Isosorbide [place] Extended Rel 30 Mg Tabcr) 30 mg PO QAM [facility] Stop: 04/29/25 08:59 Last Admin: 04/01/25 08:54 Dose: 30 mg Documented By: Admin: 03/31/25 08:10 Dose: 30 mg Documented By: Admin: 03/30/25 09:14 Dose: 30 mg Documented By: Levothyroxine Sodium (Levothyroxine Sodium 50 Mcg Tablet) 50 mcg PO DAILYBB DONTE Stop: 04/29/25 06:29 Last Admin: 04/01/25 05:56 Dose: 50 mcg Documented By: Admin: 03/31/25 05:42 Dose: 50 mcg Documented By: Admin: 03/30/25 05:28 Dose: 50 mcg Documented By: LEONORA Loratadine (Loratadine 10 Mg Tab) 10 mg PO QAM [facility] Stop: 04/29/25 08:59 Last Admin: 04/01/25 08:54 Dose: 10 mg Documented By: Admin: 03/31/25 08:10 Dose: 10 mg Documented By: Admin: 03/30/25 09:14 Dose: 10 mg Documented By: Losartan Potassium (Losartan Potassium 50 Mg Tab) 50 mg PO DAILY DONTE Stop: 04/29/25 08:59 Last Admin: 04/01/25 08:55 Dose: 50 mg Documented By: Admin: 03/31/25 08:11 Dose: 50 mg Documented By: Admin: 03/30/25 09:14 Dose: 50 mg Documented By: Magnesium Oxide (Magnesium Oxide 400 Mg Tab) 400 mg PO DAILY DONTE Stop: 04/29/25 08:59 Last Admin: 04/01/25 09:02 Dose: 400 mg Documented By: Admin: 03/31/25 08:20 Dose: 400 mg Documented By: Admin: 03/30/25 09:13 Dose: 400 mg Documented By: Miscellaneous (Ibandronate 150 Mg Tablet--Order Awaiting Action) 1 each N/A QS DONTE Stop: 04/29/25 00:00 Last Admin: 04/01/25 08:49 Dose: Not Given Documented By: Admin: 03/31/25 23:29 Dose: Not Given Documented By: Admin: 03/31/25 16:45 Dose: Not Given Documented By: Admin: 03/31/25 08:12 Dose: Not Given Documented By: Admin: 03/31/25 00:00 Dose: Not Given Documented By: Admin: 03/30/25 16:59 Dose: Not Given Documented By: Admin: 03/30/25 09:19 Dose: Not Given Documented By: Admin: 03/30/25 01:11 Dose: Not Given Documented By: LEONORA Montelukast Sodium (Montelukast Sodium 10 Mg Tablet) 10 mg PO QPM DONTE Stop: 04/28/25 20:59 Last Admin: 03/31/25 20:38 Dose: 10 mg Documented By: Admin: 03/30/25 19:53 Dose: 10 mg Documented By: Admin: 03/29/25 22:30 Dose: 10 mg Documented By: LEONORA Pantoprazole Sodium (Pantoprazole 40 Mg Tab) 40 mg PO QAM DONTE Stop: 04/29/25 08:59 Last Admin: 04/01/25 08:55 Dose: 40 mg Documented By: Admin: 03/31/25 08:10 Dose: 40 mg Documented By: Admin: 03/30/25 09:14 Dose: 40 mg Documented By: MS Pramipexole Dihydrochloride (Pramipexole Dihydrochlo 0.25 Mg Tab) 0.25 mg PO QPM DONTE Stop: 04/28/25 20:59 Last Admin: 03/31/25 20:37 Dose: 0.25 mg Documented By: Admin: 03/30/25 19:52 Dose: 0.25 mg Documented By: Admin: 03/29/25 22:30 Dose: 0.25 mg Documented By: LMP Rosuvastatin Calcium (Rosuvastatin Calcium 20 Mg Tab) 40 mg PO DAILY DONTE Stop: 04/29/25 08:59 Last Admin: 04/01/25 08:55 Dose: 40 mg Documented By: Admin: 03/31/25 08:10 Dose: 40 mg Documented By: Admin: 03/30/25 09:14 Dose: 40 mg Documented By: MS Umeclidinium/Vilanterol (Umeclidinium/Vilanterol 62.5/25mcg 7 Puffs/Inhaler) 1 puffs INH DAILY DONTE Stop: 04/29/25 08:59 Last Admin: 04/01/25 08:55 Dose: 1 puffs Documented By: Admin: 03/31/25 08:12 Dose: 1 puffs Documented By: Admin: 03/30/25 09:15 Dose: 1 puffs Documented By: MS Venlafaxine HCl (Venlafaxine Hcl Xr 150 Mg Capxr) 150 mg PO HS DONTE Stop: 04/28/25 20:59 Last Admin: 03/31/25 20:37 Dose: 150 mg Documented By: Admin: 03/30/25 19:52 Dose: 150 mg Documented By: Admin: 03/29/25 22:30 Dose: 150 mg Documented By: LMP Vibegron (Vibegron 75 Mg Tab) 75 mg PO DAILY DONTE Stop: 04/29/25 08:59 Last Admin: 04/01/25 08:56 Dose: 75 mg Documented By: Admin: 03/31/25 08:10 Dose: 75 mg Documented By: Admin: 03/30/25 09:14 Dose: 75 mg Documented By: MS Vitamin B Complex (Vitamin B Complex Tab) 1 tab PO QAM DONTE Stop: 04/29/25 08:59 Last Admin: 04/01/25 08:56 Dose: 1 tab Documented By: Admin: 03/31/25 08:10 Dose: 1 tab Documented By: Admin: 03/30/25 09:14 Dose: 1 tab Documented By: Discontinued Medications Diltiazem HCl (Diltiazem Hcl 5 Mg/Ml 5 Ml Vial) 10 mg IV NOW STA Stop: 03/29/25 15:18 Last Admin: 03/29/25 15:32 Dose: 10 mg Documented By: LAW Co-signed By: SIRENA Furosemide (Furosemide 40 Mg/4 Ml Vial) 60 mg IV ONE ONE Stop: 03/30/25 11:27 Last Admin: 03/30/25 12:08 Dose: 60 mg Documented By: Sodium Chloride (Nss) 500 mls @ 999 mls/hr IV .Q31M ONE Stop: 03/29/25 13:40 Last Infusion: 03/29/25 13:56 Dose: Infused Documented By: Admin: 03/29/25 13:19 Dose: 999 mls/hr Documented By: FUENTES Acetaminophen (Ofirmev) 1,000 mg in 100 mls @ 400 mls/hr IV NOW STA Stop: 03/29/25 13:24 Last Admin: 03/29/25 13:19 Dose: Not Given Documented By: FUENTES Sodium Chloride (Nss) 500 mls @ 999 mls/hr IV .Q31M ONE Stop: 03/29/25 15:44 Last Infusion: 03/29/25 16:52 Dose: Infused Documented By: Admin: 03/29/25 15:32 Dose: 999 mls/hr Documented By: LAW Magnesium Sulfate/Dextrose (Magnesium Sulfate / D5w) 1 gm in 100 mls @ 100 mls/hr IV Q1H DONTE Stop: 03/29/25 17:13 Last Infusion: 03/29/25 17:46 Dose: Infused Documented By: Admin: 03/29/25 16:40 Dose: 100 mls/hr Documented By: Infusion: 03/29/25 16:36 Dose: Infused Documented By: Admin: 03/29/25 15:36 Dose: 100 mls/hr Documented By: LAW Ioversol (Optiray 320 125ml) 115 ml IV ONCE ONE Stop: 03/29/25 19:09 Last Admin: 03/29/25 19:08 Dose: 115 ml Documented By: GUILLERMO Metoprolol Succinate (Metoprolol Succ 50mg Ext Rel Tab) 100 mg PO BID DONTE Stop: 04/28/25 20:59 Last Admin: 04/01/25 08:54 Dose: 100 mg Documented By: Admin: 03/31/25 20:38 Dose: 100 mg Documented By: Admin: 03/31/25 08:11 Dose: 100 mg Documented By: Admin: 03/30/25 19:52 Dose: 100 mg Documented By: Admin: 03/30/25 09:14 Dose: 100 mg Documented By: Admin: 03/29/25 22:31 Dose: 100 mg Documented By: LEONORA Potassium Chloride (Potassium Chloride Crtab 20 Meq Tabcr) 20 meq PO NOW ONE Stop: 03/30/25 11:28 Last Admin: 03/30/25 12:08 Dose: 20 meq Documented By: PG Care Time/CCT Total # of Minutes Spent Total Time Spent with Patient: Total time spent is greater than 50% in coordination of care (as documented) at patient's floor/unit and/or counseling patient:26 [place] [address] SUB INP/OBS CARE 3/50MIN Patient Type Established History Detailed Exam Detailed Medical Decision Making High Complexity Diagnoses Infection due to parainfluenza virus 3 B34.8 Atrial fibrillation with rapid ventricular response I48.91 Acute heart failure with preserved ejection fraction I50.31 Heart failure chronicity: acute Time Spent (min) 52 (3) (HFpEF) heart failure with preserved ejection fraction Heart failure chronicity: acute Qualified Code(s): I50.31 - Acute diastolic (congestive) heart failure
--- NOTE | 2025-04-01 11:04 | Discharge Summary ---
Discharge Summary Date of Service April 01, 2025 Principal Dx & Hospital Course #1 = Principal Diagnosis (1) Atrial fibrillation with rapid ventricular response: -given 10mg cardizem bolus in ER -cardizem drip -pt on cardizem 240mg PO -metoprolol 100mg Qdaily -eliquis -echo -cardiology consult appreciated -titrate off drip as tolerated -Pt doing well off drip, metoprolol increased to 150mg BID as per cardiology (2) Parainfluenza infection: -supportive care -supplemental 02 -Tessalon -mucinex (3) Type 2 diabetes mellitus: -Glycemic control as per pharmacy -metformin (4) GERD (gastroesophageal reflux disease): -protonix (5) Anxiety: -lorazepam (6) Depression: -venlafaxine (7) Hyperlipidemia: -crestor Admission HPI Per Admitting Provider Pt is a 79 y/o female with pmh of DM, afib on eliquis, depression, anxiety, HLD, GERD, who presents with 3 days of progressive SOB, productive cough of yellow phelm, and generalized weakness. Pt denies any fevers or chest pain. Pt's labs show mg+ 1.3. Her HR was afib with RVR and she was given 10mg IV cardizem bolus with HR still in the low 120s. Pt was found to be parainfluenza +. Her CXR showed cardiomegaly with mild interstitial pulmonary edema, no infiltrates. Pt was hypoxic requiring 2LNC to maintain stats >92. She is being admitted for further treatment of afib with RVR and parainfluenza virus infection with hypoxia. Discharge Exam GENERAL APPEARANCE NAD, activity normal for age, well developed/ well nourished, no cyanosis, pallor, or diaphoresis. EYES lids/conjunctiva normal. EARS/NOSE/THROAT Mucous membranes moist, nares normal, lips/teeth normal uvula midline without oral pharyngeal erythema, exudate or swelling TMs normal bilaterally. No lymphangitis/lymphedema. HEAD/NECK normocephalic atraumatic, no facial trauma, neck is supple. RESPIRATORY respiratory effort normal, speaks in full sentences, no tripod position, no accessory muscle use. Lungs clear to auscultation without rhonchi, wheezes, rales CARDIAC Regular rate and rhythm, no edema. ABDOMINAL Soft, ND/NT. No evidence of fluid wave. No pulsatile masses on exam, rebound tenderness, Norwood sign or pain over Mcburney's point. MUSCLES/EXTREMITIES No abnormal range of motion, no swelling. SKIN Warm, pink and dry. No rashes, dermatoses, petechiae or lesions. NEUROLOGICAL Speech is clear and appropriate. Normal level of consciousness. Gait and coordination are normal. 5/5 strength in all extremities. PSYCH Normal mood and affect. Judgement/competence is appropriate Discharge Plan Discharge Items Patient Disposition: Home - Self-Care Reason For Visit: AFIB WITH RVR PARAINFLUENZA VIRUS Discharge Diagnosis: Afib with RVR, parainfluenza virus Condition on Discharge: Fair Activity: Resume your previous activity Non-emergency contact: Primary Care Provider Call non-emergency contact if: you have any medication questions Follow-up/Referrals: Rico Arevalo MD [Primary Care Provider] - Diet: Carb Consistent or DM2 Addtl Attending Provider Instructions: Follow up with PMD in 2 weeks Pending Studies at Discharge: No Stand-Alone Forms: My [facility] [employer], Smoking Cessation Medications and DC Order Prescriptions: New metoprolol succinate 50 mg Tablet Extended Release 24 Hr 150 mg PO BID Qty: 60 0RF benzonatate 100 mg Capsule 100 mg PO Q6 PRN (Reason: cough) Qty: 30 0RF guaifenesin [Mucinex] 600 mg Tablet Extended Release 12hr 600 mg PO Q12 Qty: 12 0RF Continued albuterol sulfate [Ventolin HFA] 90 mcg/actuation HFA aerosol inhaler 2 puff INH QID PRN (Reason: shortness of breath or wheezing) Qty: 18 5RF Rx Instructions: Please substitute least expensive albuterol inhaler. Myrbetriq 50 mg tablet extended release 24 hr 50 mg PO QAM Qty: 90 3RF rosuvastatin [Crestor] 40 mg tablet 40 mg PO DAILY Qty: 90 3RF bupropion HCl 300 mg tablet extended release 24 hr 300 mg PO QAM Qty: 90 3RF metformin 500 mg tablet 500 mg PO BID Qty: 200 3RF Trelegy Ellipta 200-62.5-25 mcg blister with device 1 inh inhalation DAILY Qty: 180 3RF Rx Instructions: rinse mouth and gargle after usage losartan 50 mg tablet 50 mg PO DAILY Qty: 90 3RF ibandronate 150 mg tablet 150 mg PO MONTHLY Qty: 3 3RF Rx Instructions: as directed. montelukast [Singulair] 10 mg tablet 10 mg PO QPM Qty: 90 3RF (DME) Accu-Chek Sandy Plus test strp Strip See Rx Instructions .Route Qty: 100 3RF Rx Instructions: check once daily As directed DX:E11.9 (DME) OneTouch Ultra Test Strip See Rx Instructions .Route Qty: 100 4RF Rx Instructions: onetouch ultra in vitro strip; check sugars once a day; DX E11.9 Eliquis 5 mg tablet 5 mg PO BID Qty: 180 3RF lorazepam 0.5 mg tablet 0.5 mg PO TID PRN (Reason: anxiety or restless legs) Qty: 90 0RF Patient Comments: Per daughter she takes every night at bedtime donepezil 5 mg tablet 5 mg PO DAILY Qty: 30 11RF Rx Instructions: take with breakfast fenofibrate 54 mg tablet 54 mg PO QAM Qty: 90 3RF pantoprazole [Protonix] 40 mg tablet,delayed release (DR/EC) 40 mg PO QAM Qty: 90 3RF nitroglycerin 0.4 mg tablet, sublingual 0.4 mg sublingual Q5M PRN (Reason: chest pain) Qty: 25 0RF Rx Instructions: do not exceed 3 doses per episode clopidogrel 75 mg tablet 75 mg PO DAILY (DME) Auto Titrating CPAP Misc See Rx Instructions .Route Qty: 1 0RF Rx Instructions: 4- 15 pressure diltiazem HCl 240 mg capsule,extended release 24hr 240 mg PO DAILY Qty: 30 11RF ascorbic acid (vitamin C) 500 mg capsule 500 mg PO DAILY pramipexole 0.25 mg tablet 0.25 mg PO QPM Qty: 60 5RF Rx Instructions: administer 1 hour before leg restlessness starts ferrous sulfate 325 mg (65 mg iron) tablet 325 mg PO DAILY Qty: 90 1RF loratadine [Allergy Relief (loratadine)] 10 mg tablet 10 mg PO QAM venlafaxine 150 mg capsule,extended release 24hr 150 mg PO HS levothyroxine 50 mcg tablet 50 mcg PO DAILYBB Rx Instructions: Take first thing in the morning about 30 minutes prior to other medications and food. mupirocin 2 % ointment 1 applic topical BID PRN (Reason: SKIN IRRITATIONS) vitamin B complex Tablet 1 tab PO QAM isosorbide mononitrate 30 mg tablet extended release 24 hr 30 mg PO QAM magnesium oxide 400 mg magnesium Tablet 400 mg PO DAILY Discontinued metoprolol succinate 100 mg tablet extended release 24 hr 100 mg PO BID Qty: 60 5RF Discharge Orders: Discharge Order (Routine); Ordered 04/01/25 Ordered By: Dayron Cortez Admission Data Admit Date/Time: 03/29/25 18:27 Attending Provider: Dayron Cortez Admit Provider: Dayron Cortez Primary Care Provider: Rico Arevalo Other Providers: Rm Vaughan Alexander W.; [facility] Hospital Stay Data Consultations 03/29/25 15:46 ED Decision to Admit Stat 03/29/25 17:12 Consult Cardiology Stat Diagnostic Imagining Performed 03/29/25 18:38 CT head/brain wo con Stat 03/29/25 18:46 CTA head w con [CT angio head w con] Stat CTA neck with con [CT angio neck with con] Stat Pending Results Patient Have Any Pending Studies at Discharge: No Discharge Instructions Given to Patient (Per Discharging Provider) Follow up with PMD in 2 weeks Total Time Total Time Spent Total Time Spent (In Minutes): 50 Coding Level of Care Code 52209 INP/OBS DISCH >30 MIN Diagnoses Atrial fibrillation with rapid ventricular response I48.91 Parainfluenza infection B34.8 Type 2 diabetes mellitus E11.9 GERD (gastroesophageal reflux disease) K21.9 Anxiety F41.9 Depression F32.9 Hyperlipidemia E78.5
[2025-04-01 11:12] VITALS: RESP 20
[2025-04-01 12:06] VITALS: BP 120/87; PULSE 116; TEMP 98.6; O2SAT 90
--- NOTE | 2025-04-01 12:32 | Pharmacy Report ---
Pharmacy Glycemic Sign Off Nt - Date of Service April 01, 2025 - Assessment & Plan ASSESSMENT: * Pharmacy was consulted by Dr. Cortez on 03/29/25 for glycemic control and to write orders per [facility] inpatient glycemic control protocol. * Major changes made by pharmacy to antidiabetic regimen include: * Holding Metformin home medication * Starting bolus insulin regimen * Patient has been receiving/requiring ~8 units of insulin per day for adequate glycemic control (all bolus) * BSGs ranging 129-209 mg/dL * Regimen has only required minor adjustments over the past 48hrs to achieve this level of control * Do not anticipate further changes in patient status that would quickly deteriorate glycemic control (i.e. patient to be NPO for upcoming procedure, steroids tapering, starting tube feedings, etc). * Please see recommendations for outpatient antidiabetic regimen below. PLAN FOR INPATIENT GLYCEMIC CONTROL: * Discontinue all insulin * Resume home Metformin 500 mg PO BID this evening * Pharmacy is signing off of glycemic consult and will no longer be making adjustments to inpatient regimen. Please feel free to re-consult if needed. Thank you.
[2025-04-01] MEDS ORDERED: metFORMIN HCL 500 MG TAB PO SCH (17:00)
[2025-04-01] MEDS ORDERED: METOPROLOL SUCC 50MG EXT REL TAB PO SCH (21:00)
== END 2025-04-01 13:33 | disposition home or self-care (01) | DRG 309 ==
LOC: ED 12:19 → EDINP 16:38 → 2E 20:31
DX: Z79.899 Other long term (current) drug therapy; F41.9 Anxiety disorder, unspecified; Z79.02 Long term (current) use of antithrombotics/antiplatelets; I25.10 Atherosclerotic heart disease of native coronary artery without angina pectoris; Z86.73 Personal history of transient ischemic attack (TIA), and cerebral infarction without residual deficits; Z88.5 Allergy status to narcotic agent; I10 Essential (primary) hypertension; Z66 Do not resuscitate; Z95.5 Presence of coronary angioplasty implant and graft; E11.51 Type 2 diabetes mellitus with diabetic peripheral angiopathy without gangrene; I48.91 Unspecified atrial fibrillation; Z79.890 Hormone replacement therapy; Z95.0 Presence of cardiac pacemaker; I49.5 Sick sinus syndrome; Z87.891 Personal history of nicotine dependence; J45.909 Unspecified asthma, uncomplicated; R47.01 Aphasia; D50.9 Iron deficiency anemia, unspecified; E78.5 Hyperlipidemia, unspecified; Z88.8 Allergy status to other drugs, medicaments and biological substances; Z88.2 Allergy status to sulfonamides; K21.9 Gastro-esophageal reflux disease without esophagitis; B34.8 Other viral infections of unspecified site; G25.81 Restless legs syndrome

== ENCOUNTER 2025-04-03 12:15 | Inpatient (IN) ==
--- NOTE | 2025-04-03 12:55 | Emergency Department Note ---
Impression & Plan Pneumonia, Hypoxia, Hypomagnesemia, ASTUDILLO (dyspnea on exertion), Fall, Head injury ED Provider Note NAME: PRANAY HYMAN AGE: 79 SEX: F : 1945 ARRIVES VIA: Walk-In INFORMANT: Patient, the patient's family members ED PROVIDER(S): Lisandro Glez DO CHIEF COMPLAINT: Weakness HPI: The patient is a 79-year-old female who was recently discharged to our facility with a diagnosis of parainfluenza infection as well as atrial fibrillation. The patient presented to the emergency department today because of generalized weakness. The patient's had continued coughing as well as shortness of breath. She did have a fall recently where she struck her head. The patient's family members got called by the patient's significant other and they were told that she was not feeling well. The patient presented to the emergency department for further evaluation. The patient denies having any chest pain but does complain of some shortness of breath with exertion. She denies having any back pain or leg pain. She denies having any leg swelling. ROS: See above HPI for pertinent positives & negatives. A total of 10 systems reviewed and were otherwise negative. PAST MEDICAL HISTORY: See Below PAST SURGICAL HISTORY: See Below FAMILY HISTORY: See Below SOCIAL HISTORY: See Below HOME MEDICATIONS: See Below ALLERGIES: See Below VITALS: See Below PHYSICAL EXAMINATION: GENERAL: The patient is awake and alert. The patient is not anxious appearing. EYES: The conjunctivae are clear. The pupils are round and reactive. EARS, NOSE, MOUTH AND THROAT: The nose is without any evidence of any deformity. NECK: The neck is nontender and supple. RESPIRATORY: Diminished breath sounds are noted throughout with scattered rhonchi. There is mild conversational dyspnea. CARDIOVASCULAR: Irregular heart sounds were noted auscultation. No definite murmur was noted. GASTROINTESTINAL: The abdomen is soft. Abdomen is nontender. MUSCULOSKELETAL/EXTREMITIES: There is no evidence of gross deformity full range of motion is noted in the hips and shoulders. SKIN: There is no obvious evidence of any rash. There are no petechiae, pallor or cyanosis noted. NEUROLOGIC: Patient is awake alert and oriented x3. Strength is symmetric. There is no facial droop. MEDICAL DECISION MAKING: The patient is a 79-year-old female who presented to the emergency department for evaluation of difficulty breathing. The patient was recently admitted to our facility for parainfluenza infection. She does have significant comorbidities. I discussed the patient's laboratory and radiographic studies with her. Her family brought her to the emergency department because she was not feeling well. She was not sent home on oxygen. The patient was placed on supplemental oxygen. On reevaluation she was feeling much better. She was treated with IV fluids IV antibiotics as well as a DuoNeb. I discussed the patient's condition with her. [facility] Given her recent admission and her vital signs at this time I do feel that she would be best served with inpatient treatment. They will evaluate the patient in the emergency department. Triage Nursing notes reviewed. Prior medical records reviewed Vital Signs: reviewed and remarkable for hypotension and tachypnea. Differential diagnosis: Infection, dehydration, metabolic abnormality, hypo/hyperglycemia, electrolyte disturbance, anemia, hypoxia, cardiac sources, intracerebral event, toxicologic, neurologic, as well as other pathologies. ER treatment provided: See below Diagnostics interpreted by me: ECG: EKG was obtained in the emergency department. My interpretation is atrial fibrillation at 94 bpm. There were fusion beats noted. Nonspecific ST segment abnormalities are noted. This was compared to a tracing from March 29, 2025. No changes were noted. Cardiac Monitoring: An order was placed for continuous cardiac monitoring. The monitor shows a rate of 98 bpm with sinus rhythm. Laboratory studies: As stated above and show below. Imaging studies: See below. Radiographic imaging was reviewed by myself Consultation(s): I discussed this case with Dr. Gordillo who [facility] ED COURSE: Procedures: none Critical Care: I have personally spent greater than 40 minutes of critical care time in the direct management of this patient. This includes bedside care, interpretation of diagnostic studies, and testing, discussion with consultants, patient, and family members, and other required patient management activities. This 40 minutes is in excess of all separately billable procedures. Past Med/Surg History Problem List (Updated 04/03/25 @ 15:54 by Lisandro Glez DO) Head injury (Acute) Fall (Acute) ASTUDILLO (dyspnea on exertion) (Acute) Hypomagnesemia (Acute) Hypoxia (Acute) Pneumonia (Acute) (HFpEF) heart failure with preserved ejection fraction Parainfluenza infection Opacity of lung on imaging study Recurrent UTI Carotid stenosis, right Chronic cerebral ischemia Confusion TIA (transient ischemic attack) Urinary frequency Anticoagulant long-term use Atrial fibrillation with rapid ventricular response SSS (sick sinus syndrome) Mitral regurgitation Constipation Hypoxia (Acute) Hematoma of scalp (Acute) Recurrent falls (Acute) Sinus bradycardia Asymptomatic bacteriuria Fracture of proximal phalanx of digit of left hand Paroxysmal atrial fibrillation with RVR Iron deficiency anemia Lung nodules S/P coronary artery stent placement Memory loss Paroxysmal atrial fibrillation Osteoporosis Vitamin D deficiency (Acute) Back pain, chronic (Acute) Allergic rhinitis (Acute) Osteoarthritis of right knee Microalbuminuria Multinodular goiter Graves disease (Acute) Euthyroid per 01/31/21 thyroid studies -- no medications/issues currently, under surveillance by PCP Moderate obstructive sleep apnea (Acute) CPAP Pulmonary nodules (Acute) Restless legs syndrome (Acute) Medical History Hypomagnesemia Infection due to parainfluenza virus 3 Atrial flutter with rapid ventricular response Anxiety Depression Type 2 diabetes mellitus NIDDM GERD (gastroesophageal reflux disease) Hyperlipidemia Hypomagnesemia Ambulatory dysfunction Elevated brain natriuretic peptide (BNP) level Enterovirus infection Rhinovirus infection Cough Shortness of breath Recurrent falls Mild cognitive disorder CAD (coronary atherosclerotic disease) Hypertension Asthma Pericardial effusion PAD (peripheral artery disease) Hypomagnesemia CR (acute kidney injury) Meningioma Pseudoaneurysm of left femoral artery Left groin mass Abdominal distension Diaphoresis Chest discomfort Dyspnea on exertion Abnormal thyroid blood test Cough Close exposure to 2019-nCoV Conjunctivitis Close exposure to 2019-nCoV Cough productive of purulent sputum History of COVID-19 Dx 05/2020 (treated inpatient at [facility]) Asthma Well controlled Closed fracture of right distal fibula Thyroid nodule Osteoporosis Surgical History Status post placement of cardiac pacemaker Hx of cardiac cath 06/05/2023 H/O laminectomy (~1991) cervical laminectomy. full rom S/P right knee arthroscopy History of esophagogastroduodenoscopy (EGD) History of colonoscopy History of cholecystectomy History of corneal transplant R/L Family History Father , age 82 of heart disease. Diabetes Heart disease Hemangioma Glaucoma Asthma Hypertension Mother , age 78 of a "massive" stroke Stroke Other No family history of adverse response to anesthesia Social History Smoking Status: Former smoker Tobacco Type: Cigarettes Age Started Using Tobacco: 14; Age Quit Using Tobacco: 41; packs per day: 0.5; Second Hand Exposure: No; Do You Dip or Chew Tobacco: No; Hx Alcohol Use: No Hx Substance Use: No Preferred Language: Syriac Communication Ability: Impaired Visual Impairment: No Limitations Hearing Ability: Normal Script Artist Required: No Beliefs That Will Affect Care: None marital status: Current Living Situation: Spouse current occupational status: retired 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 Feels Safe at Home: Yes Dental Care, Regularly: Yes Seatbelt Use: always Assistive Devices: Cane, CPAP, Nebulizer and Walker Allergies Allergies Allergy/AdvReac Type Severity Reaction Status Date / Time sulfamethoxazole Allergy Intermediate Rash Verified 03/29/25 16:09 [From Bactrim] trimethoprim [From Bactrim] Allergy Intermediate Rash Verified 03/29/25 16:09 codeine AdvReac Intermediate Vomiting & Verified 03/29/25 16:09 hallucinations Home Meds Home Medications Medication Instructions Recorded Confirmed loratadine 10 mg tablet (Allergy 10 mg PO QAM 06/29/20 03/29/25 Relief (loratadine)) clopidogrel 75 mg tablet 75 mg PO DAILY 06/09/23 03/29/25 isosorbide mononitrate 30 mg 30 mg PO QAM 01/07/25 03/29/25 tablet,extended release 24 hr vitamin B complex 1 tab PO QAM 01/07/25 03/29/25 ascorbic acid (vitamin C) 500 mg 500 mg PO DAILY 01/14/25 03/29/25 capsule magnesium oxide 400 mg PO DAILY 01/20/25 03/29/25 levothyroxine 50 mcg tablet 50 mcg PO DAILYBB 03/29/25 03/29/25 mupirocin 2 % topical ointment 1 applic topical BID PRN SKIN 03/29/25 03/29/25 IRRITATIONS venlafaxine 150 mg 150 mg PO HS 03/29/25 03/29/25 capsule,extended release 24 hr Previous Rx's Medication Instructions Recorded nitroglycerin 0.4 mg sublingual 0.4 mg sublingual Q5M PRN chest 04/29/23 tablet pain #25 tabs albuterol sulfate 90 mcg/actuation 2 puff inhalation QID PRN 01/27/24 aerosol inhaler (Ventolin HFA) shortness of breath or wheezing #18 grams mirabegron 50 mg tablet,extended 50 mg PO QAM #90 tabs 05/28/24 release 24 hr (Myrbetriq) rosuvastatin 40 mg tablet (Crestor) 40 mg PO DAILY #90 tabs 07/13/24 bupropion HCl 300 mg 24 hr tablet, 300 mg PO QAM #90 tabs 07/19/24 extended release metformin 500 mg tablet 500 mg PO BID #200 tabs 08/04/24 fluticasone fur. 200 mcg-umeclid 1 inh inhalation DAILY #180 ea 08/31/24 62.5 mcg-vilant 25 mcg inhalat.powder (Trelegy Ellipta) losartan 50 mg tablet 50 mg PO DAILY #90 tabs 09/14/24 ibandronate 150 mg tablet 150 mg PO MONTHLY #3 tabs 09/24/24 montelukast 10 mg tablet 10 mg PO QPM #90 tabs 10/27/24 (Singulair) Auto Titrating CPAP #1 ea 11/15/24 blood sugar diagnostic (Accu-Chek #100 ea 12/04/24 Sandy Plus test strips) blood sugar diagnostic (OneTouch #100 ea 12/28/24 Ultra Test strips) ferrous sulfate 325 mg (65 mg 325 mg PO DAILY #90 tabs 01/14/25 iron) tablet pramipexole 0.25 mg tablet 0.25 mg PO QPM #60 tabs 01/14/25 apixaban 5 mg tablet (Eliquis) 5 mg PO BID #180 tabs 02/25/25 lorazepam 0.5 mg tablet 0.5 mg PO TID PRN anxiety or 03/01/25 restless legs #90 tabs donepezil 5 mg tablet 5 mg PO DAILY #30 tabs 03/04/25 fenofibrate 54 mg tablet 54 mg PO QAM #90 tabs 03/18/25 pantoprazole 40 mg tablet,delayed 40 mg PO QAM #90 tabs 03/18/25 release (Protonix) diltiazem HCl 240 mg capsule,24 240 mg PO DAILY #30 caps 03/21/25 hr,extended release benzonatate 100 mg capsule 100 mg PO Q6 PRN cough #30 caps 04/01/25 guaifenesin 600 mg tablet, 600 mg PO Q12 #12 tabs 04/01/25 extended release 12 hr (Mucinex) metoprolol succinate 50 mg 150 mg (3 x 50 mg) PO BID #60 tabs 04/01/25 tablet,extended release 24 hr Results & Data (ED) Vital Signs Vital Signs - 24 hr 04/03/25 12:20 04/03/25 12:25 04/03/25 12:54 Temperature 36.6 C Temperature Source Temporal Artery Scan Pulse Rate 98 H Pulse Rate [Right Finger] 124 H Pulse Rhythm [Right Finger] Irregular Respiratory Rate 20 22 Respiratory Effort / Characteristics Non-Labored Spontaneous Spontaneous Respiratory Depth Normal Respiratory Pattern Regular Regular Blood Pressure 97/65 L Blood Pressure [Right Arm] 117/83 Blood Pressure Mean 75 Blood Pressure Mean [Right Arm] 94 Pulse Oximetry 90 90 92 Oxygen Delivery Method Room Air Room Air Nasal Cannula Oxygen Flow Rate 2 Sepsis Recent Fever Within 48 Hours No Sepsis New/Unexplained Change in Mental Status N/A Sepsis Action Taken by Nursing No Action Required Oxygen Flow Rate - Titration 2 04/03/25 12:56 04/03/25 12:57 04/03/25 13:10 Temperature Temperature Source Pulse Rate 112 H Pulse Rate [Right Finger] Pulse Rhythm [Right Finger] Respiratory Rate Respiratory Effort / Characteristics Non-Labored Spontaneous Respiratory Depth Respiratory Pattern Blood Pressure Blood Pressure [Right Arm] Blood Pressure Mean Blood Pressure Mean [Right Arm] Pulse Oximetry 93 Oxygen Delivery Method Nasal Cannula Oxygen Flow Rate 2 Sepsis Recent Fever Within 48 Hours Sepsis New/Unexplained Change in Mental Status Sepsis Action Taken by Nursing Oxygen Flow Rate - Titration 04/03/25 14:20 Temperature Temperature Source Pulse Rate Pulse Rate [Right Finger] 106 H Pulse Rhythm [Right Finger] Respiratory Rate 26 H Respiratory Effort / Characteristics Respiratory Depth Normal Respiratory Pattern Blood Pressure Blood Pressure [Right Arm] 92/67 L Blood Pressure Mean Blood Pressure Mean [Right Arm] 75 Pulse Oximetry 92 Oxygen Delivery Method Nasal Cannula Oxygen Flow Rate 2 Sepsis Recent Fever Within 48 Hours Sepsis New/Unexplained Change in Mental Status Sepsis Action Taken by Nursing Oxygen Flow Rate - Titration Home Medications Current Medication List: was personally reviewed by me Laboratory Data Attestation: I reviewed the patient's lab results. 04/03/25 13:07 04/03/25 14:24 Lab Results 04/03/25 04/03/25 Range/Units 13:07 14:24 WBC 12.45 H (4.8-10.8) K/ul RBC 3.64 L (4.20-5.40) M/uL Hgb 11.1 L (12.0-16.0) g/dl Hct 34.1 L (37.0-47.0) % MCV 93.7 (80.0-100.0) fL MCH 30.5 (25.0-34.0) pg MCHC 32.6 (32.0-36.0) g/dL RDW Std Deviation 52.2 H (36.4-46.3) fL RDW Coeff of Ambreen 15.2 H (11.5-14.5) % Plt Count 426 H (130-400) K/uL MPV 9.5 (9.4-12.4) fL Immature Gran % (Auto) 0.4 % Neut % (Auto) 84.1 % Lymph % (Auto) 8.4 % [place] % (Auto) 5.9 % Eos % (Auto) 0.8 % Baso % (Auto) 0.4 % Neut # (Auto) 10.47 H (1.40-6.50) K/uL Lymph # (Auto) 1.05 L (1.20-3.40) K/uL [place] # (Auto) 0.73 H (0.11-0.59) K/uL Eos # (Auto) 0.10 (0.00-0.50) K/uL Baso # (Auto) 0.05 (0.00-0.20) K/uL Immature Gran # (Auto) 0.05 (0.01-0.20) K/uL PT 13.2 H (9.0-12.0) Seconds INR 1.2 H (0.9-1.1) APTT 35 H (21-31) Seconds PTT Ratio 1.3 VBG pH 7.41 (7.36-7.41) VBG pCO2 44 (38-50) mmHg VBG pO2 30 mmHg VBG HCO3 28 mmol/L VBG O2 Saturation < 60.0 % VBG Base Excess 2.7 mEq/L Sodium 137 (136-145) mmol/L Potassium 3.8 (3.5-5.1) mmol/L Chloride 106 (98-107) mmol/L Carbon Dioxide 27 (21-32) mmol/L Anion Gap 4 (3-11) BUN 18 (6-23) mg/dl Creatinine 0.77 (0.6-1.2) mg/dl Est Cr Clr Drug Dosing 52.0 ml/min eGFR 78.91 BUN/Creatinine Ratio 23.4 H (10-20) Glucose 93 (70-99(Fasting)) mg/dl Lactate 0.9 (0.4-2.0) mmol/L Calcium 8.4 L (8.6-10.3) mg/dl Magnesium 1.6 L (1.7-2.4) mg/dl Total Bilirubin 0.4 (0.2-1.0) mg/dl Direct Bilirubin 0.1 (0-0.2) mg/dl AST 25 (13-39) U/L ALT 22 (7-52) U/L Alkaline Phosphatase 58 (34-104) U/L Troponin I High Sens 12.5 (0-14) pg/ml Total Protein 7.3 (6.0-8.3) gm/dl Albumin 3.5 (3.4-5.0) gm/dl Procalcitonin 0.13 (0-0.5) ng/ml Administered Medications Discontinued Medications Albuterol (Albut/Ipratrop 3mg/0.5mg Neb 3 Ml Vial) 3 ml NEB NOW STA; Protocol Stop: 04/03/25 12:51 Last Admin: 04/03/25 12:59 Dose: 3 ml Documented By: ANNMARIE Sodium Chloride (Nss) 500 mls @ 999 mls/hr IV .Q31M ONE Stop: 04/03/25 13:20 Last Infusion: 04/03/25 13:54 Dose: Infused Documented By: Admin: 04/03/25 13:23 Dose: 999 mls/hr Documented By: ANNMARIE Imaging Data Attestation: I personally reviewed and interpreted this imaging study as follows: My Impression: 1 view chest x-ray was obtained in the emergency department. My interpretation is no free air, possible right sided infiltrate noted, final report below. CT of the head was obtained in the emergency department. Interpretation is no intracranial hemorrhage or mass effect, final report below. Radiologist's Impression: Chest X-Ray 04/03/25 12:41 EXAM: XR chest 1V portable CLINICAL HISTORY: Sepsis TECHNIQUE: An X-ray image of the chest is obtained in AP projection. COMPARISON: 03/29/2025. FINDINGS: Pulmonary Parenchyma: Redemonstration of the bilateral increased bronchovascular markings as well as interstitial thickening in keeping with mild intersitial pulmonary edema. Right basilar densities favor atelectasis. No evidence of pleural effusion or pleural thickening. Heart and Mediastinum: Cardiomegaly.Stable. No mediastinal widening or masses. No hilar or mediastinal lymphadenopathy. Pacemaker is noted. unchanged. Bony Thorax: Multiple old right-sided rib fractures are incidentally noted. Stable. Soft Tissues: Soft tissues overlying the chest wall are unremarkable. IMPRESSION: 1. Cardiomegaly with picture of mild interstitial pulmonary edema.stable. 2. Right basilar densities favor atelectasis. Stable. Electronically signed by Jesus Worthington 04-03-2025 2:[address] 04/03/25 12:50 EXAM: CT cervical spine without CLINICAL HISTORY: Respiratory virus, feeling worse, generalized weakness TECHNIQUE: Contiguous axial images were obtained through the cervical spine without the use of intravenous contrast. Sagittal and coronal reformations are supplied. PRIORS: 03/10/2025 FINDINGS: Moderate osseous demineralization noted. Lordotic straightening present, unchanged. Mild anterolisthesis of C2 on C3 present, unchanged. Mastoid air cells are well-pneumatized. No acute fracture or dislocation. Moderate facet hypertrophic changes present at C3-C4. Moderate loss of intervertebral disc height with uncovertebral hypertrophic changes and anterior bridging osteophytes present at C3-C4 through C6-C7. Mild bilateral osteophytic neural foraminal stenosis noted diffusely. Lung apices are unremarkable. IMPRESSION: 1. No CT evidence of an acute osseous abnormality. 2. Moderate osseous demineralization with lordotic straightening and degenerative changes noted above. Electronically signed by Yasemin Nevarez 04-03-2025 2:[address] 04/03/25 12:50 EXAMINATION: Head CT without CLINICAL HISTORY: Upper respiratory infection, feeling worse, generalized weakness PRIORS: 29 March 2025 TECHNIQUE: Contiguous axial images were obtained through the head without the use of intravenous contrast. Sagittal and coronal reformations are supplied. FINDINGS: Motion artifact degrades image quality. Age appropriate parenchymal volume is noted. Davidson-white differentiation is preserved. No edema or midline shift. Nonaggressive appearing calcification again noted in the left frontal lobe measuring approximately 10 mm, possibly calcified meningioma. No intra-axial or extra-axial hemorrhage. Ventricles are normal in size and configuration. Brainstem and cerebellum have a normal appearance. Calvarium unremarkable. Total opacification of the left maxillary sinus, appearing in the interval mild mucosal thickening of the left ethmoid and frontal sinuses. Mastoid air cells are well-pneumatized. Globes are intact. No retrobulbar abnormality. IMPRESSION: 1. No CT evidence of an acute intracranial abnormality. 2. Acute left maxillary sinusitis, appearing in the interval. ACT 112: Positive. There are findings on this examination that require communication between the performing entity and the patient following Patient Test Result Information Act ([place] ACT 112) guidelines. Electronically signed by Yasemin Nevarez 04-03-2025 2:03 PM Discharge Plan Visit Data Chief Complaint: Flu Like Symptoms Stated Complaint: INFLUENZA, COUGH, FEVER, LOW OX ED Provider: Lisandro Glez Discharge Problem: Pneumonia, Hypoxia, Hypomagnesemia, ASTUDILLO (dyspnea on exertion), Fall, Head injury Patient Disposition: Being Evaluated by Hospitalist Condition: Good Forms Stand Alone Forms: My [facility] Prescriptions Prescriptions: No Action albuterol sulfate [Ventolin HFA] 90 mcg/actuation HFA aerosol inhaler 2 puff INH QID PRN (Reason: shortness of breath or wheezing) Qty: 18 5RF Rx Instructions: Please substitute least expensive albuterol inhaler. Myrbetriq 50 mg tablet extended release 24 hr 50 mg PO QAM Qty: 90 3RF rosuvastatin [Crestor] 40 mg tablet 40 mg PO DAILY Qty: 90 3RF bupropion HCl 300 mg tablet extended release 24 hr 300 mg PO QAM Qty: 90 3RF metformin 500 mg tablet 500 mg PO BID Qty: 200 3RF Trelegy Ellipta 200-62.5-25 mcg blister with device 1 inh inhalation DAILY Qty: 180 3RF Rx Instructions: rinse mouth and gargle after usage losartan 50 mg tablet 50 mg PO DAILY Qty: 90 3RF ibandronate 150 mg tablet 150 mg PO MONTHLY Qty: 3 3RF Rx Instructions: as directed. montelukast [Singulair] 10 mg tablet 10 mg PO QPM Qty: 90 3RF (DME) Accu-Chek Sandy Plus test strp Strip See Rx Instructions .Route Qty: 100 3RF Rx Instructions: check once daily As directed DX:E11.9 (DME) OneTouch Ultra Test Strip See Rx Instructions .Route Qty: 100 4RF Rx Instructions: onetouch ultra in vitro strip; check sugars once a day; DX E11.9 Eliquis 5 mg tablet 5 mg PO BID Qty: 180 3RF lorazepam 0.5 mg tablet 0.5 mg PO TID PRN (Reason: anxiety or restless legs) Qty: 90 0RF Patient Comments: Per daughter she takes every night at bedtime donepezil 5 mg tablet 5 mg PO DAILY Qty: 30 11RF Rx Instructions: take with breakfast fenofibrate 54 mg tablet 54 mg PO QAM Qty: 90 3RF pantoprazole [Protonix] 40 mg tablet,delayed release (DR/EC) 40 mg PO QAM Qty: 90 3RF nitroglycerin 0.4 mg tablet, sublingual 0.4 mg sublingual Q5M PRN (Reason: chest pain) Qty: 25 0RF Rx Instructions: do not exceed 3 doses per episode clopidogrel 75 mg tablet 75 mg PO DAILY (DME) Auto Titrating CPAP Misc See Rx Instructions .Route Qty: 1 0RF Rx Instructions: 4- 15 pressure diltiazem HCl 240 mg capsule,extended release 24hr 240 mg PO DAILY Qty: 30 11RF ascorbic acid (vitamin C) 500 mg capsule 500 mg PO DAILY pramipexole 0.25 mg tablet 0.25 mg PO QPM Qty: 60 5RF Rx Instructions: administer 1 hour before leg restlessness starts ferrous sulfate 325 mg (65 mg iron) tablet 325 mg PO DAILY Qty: 90 1RF loratadine [Allergy Relief (loratadine)] 10 mg tablet 10 mg PO QAM venlafaxine 150 mg capsule,extended release 24hr 150 mg PO HS levothyroxine 50 mcg tablet 50 mcg PO DAILYBB Rx Instructions: Take first thing in the morning about 30 minutes prior to other medications and food. mupirocin 2 % ointment 1 applic topical BID PRN (Reason: SKIN IRRITATIONS) metoprolol succinate 50 mg Tablet Extended Release 24 Hr 150 mg PO BID Qty: 60 0RF benzonatate 100 mg Capsule 100 mg PO Q6 PRN (Reason: cough) Qty: 30 0RF guaifenesin [Mucinex] 600 mg Tablet Extended Release 12hr 600 mg PO Q12 Qty: 12 0RF vitamin B complex Tablet 1 tab PO QAM isosorbide mononitrate 30 mg tablet extended release 24 hr 30 mg PO QAM magnesium oxide 400 mg magnesium Tablet 400 mg PO DAILY Referrals Referrals: Rico Arevalo MD [Primary Care Provider] -
[2025-04-03] MEDS: ALBUT/IPRATROP 3MG/0.5MG NEB 3 ML VIAL NEB STA (12:59)
[2025-04-03 13:23] LABS: Base Excess VBG 2.7 mEq/L; HCO3 VBG 28 mmol/L; Oxygen Saturation VBG < 60.0 %; PCO2 VBG 44 mmHg (38-50); PO2 VBG 30 mmHg; pH VBG 7.41 (7.36-7.41)
[2025-04-03] MEDS: SODIUM CHLORIDE 0.9% 500 ML IV ONE (13:23)
[2025-04-03 13:28] LABS: Basophils # (auto) 0.05 K/uL (0.00-0.20); Basophils % (auto) 0.4 %; Eosinophils % (auto) 0.8 %; Hematocrit (blood only) 34.1 % (37.0-47.0); Hemoglobin 11.1 g/dl (12.0-16.0); Immature Granulocytes # (auto) 0.05 K/uL (0.01-0.20); Immature Granulocytes % (auto) 0.4 %; Lymphocytes # (auto) 1.05 K/uL (1.20-3.40); Lymphocytes % (auto) 8.4 %; Mean Corpuscular Hemoglobin 30.5 pg (25.0-34.0); Mean Corpuscular Hgb Conc 32.6 g/dL (32.0-36.0); Mean Corpuscular Volume 93.7 fL (80.0-100.0); Mean Platelet Volume 9.5 fL (9.4-12.4); Monocytes # (auto) 0.73 K/uL (0.11-0.59); Monocytes % (auto) 5.9 %; Neutrophils # (auto) 10.47 K/uL (1.40-6.50); Neutrophils % (auto) 84.1 %; Platelet Count 426 K/uL (130-400); RDW Coefficient of Variation 15.2 % (11.5-14.5); RDW Standard Deviation 52.2 fL (36.4-46.3); Red Blood Count 3.64 M/uL (4.20-5.40); White Blood Count 12.45 K/ul (4.8-10.8)
[2025-04-03 13:46] LABS: Albumin Level 3.5 gm/dl (3.4-5.0); Bilirubin Direct 0.1 mg/dl (0-0.2); Bilirubin,Total 0.4 mg/dl (0.2-1.0); Magnesium 1.6 mg/dl (1.7-2.4); Total Protein 7.3 gm/dl (6.0-8.3)
[2025-04-03 13:55] LABS: INR 1.2 (0.9-1.1); Partial Thromboplastin Ratio 1.3; Partial Thromboplastin Time 35 Seconds (21-31); Prothrombin Time 13.2 Seconds (9.0-12.0)
--- NOTE | 2025-04-03 14:03 | CT Scan Report ---
EXAMINATION: Head CT without CLINICAL HISTORY: Upper respiratory infection, feeling worse, generalized weakness PRIORS: 29 March 2025 TECHNIQUE: Contiguous axial images were obtained through the head without the use of intravenous contrast. Sagittal and coronal reformations are supplied. FINDINGS: Motion artifact degrades image quality. Age appropriate parenchymal volume is noted. Davidson-white differentiation is preserved. No edema or midline shift. Nonaggressive appearing calcification again noted in the left frontal lobe measuring approximately 10 mm, possibly calcified meningioma. No intra-axial or extra-axial hemorrhage. Ventricles are normal in size and configuration. Brainstem and cerebellum have a normal appearance. Calvarium unremarkable. Total opacification of the left maxillary sinus, appearing in the interval mild mucosal thickening of the left ethmoid and frontal sinuses. Mastoid air cells are well-pneumatized. Globes are intact. No retrobulbar abnormality. IMPRESSION: 1. No CT evidence of an acute intracranial abnormality. 2. Acute left maxillary sinusitis, appearing in the interval. ACT 112: Positive. There are findings on this examination that require communication between the performing entity and the patient following Patient Test Result Information Act ([place] ACT 112) guidelines. Electronically signed by Yasemin Nevarez 04-03-2025 2:03 PM
--- NOTE | 2025-04-03 14:07 | CT Scan Report ---
EXAM: CT cervical spine without CLINICAL HISTORY: Respiratory virus, feeling worse, generalized weakness TECHNIQUE: Contiguous axial images were obtained through the cervical spine without the use of intravenous contrast. Sagittal and coronal reformations are supplied. PRIORS: 03/10/2025 FINDINGS: Moderate osseous demineralization noted. Lordotic straightening present, unchanged. Mild anterolisthesis of C2 on C3 present, unchanged. Mastoid air cells are well-pneumatized. No acute fracture or dislocation. Moderate facet hypertrophic changes present at C3-C4. Moderate loss of intervertebral disc height with uncovertebral hypertrophic changes and anterior bridging osteophytes present at C3-C4 through C6-C7. Mild bilateral osteophytic neural foraminal stenosis noted diffusely. Lung apices are unremarkable. IMPRESSION: 1. No CT evidence of an acute osseous abnormality. 2. Moderate osseous demineralization with lordotic straightening and degenerative changes noted above. Electronically signed by Yasemin Nevarez 04-03-2025 2:07 PM
--- NOTE | 2025-04-03 14:44 | XRay Report ---
EXAM: XR chest 1V portable CLINICAL HISTORY: Sepsis TECHNIQUE: An X-ray image of the chest is obtained in AP projection. COMPARISON: 03/29/2025. FINDINGS: Pulmonary Parenchyma: Redemonstration of the bilateral increased bronchovascular markings as well as interstitial thickening in keeping with mild intersitial pulmonary edema. Right basilar densities favor atelectasis. No evidence of pleural effusion or pleural thickening. Heart and Mediastinum: Cardiomegaly.Stable. No mediastinal widening or masses. No hilar or mediastinal lymphadenopathy. Pacemaker is noted. unchanged. Bony Thorax: Multiple old right-sided rib fractures are incidentally noted. Stable. Soft Tissues: Soft tissues overlying the chest wall are unremarkable. IMPRESSION: 1. Cardiomegaly with picture of mild interstitial pulmonary edema.stable. 2. Right basilar densities favor atelectasis. Stable. Electronically signed by Jesus Worthington 04-03-2025 2:44 PM
[2025-04-03 15:06] LABS: BUN Creatinine Ratio 23.4 (10-20); Calcium 8.4 mg/dl (8.6-10.3); Potassium 3.8 mmol/L (3.5-5.1)
--- NOTE | 2025-04-03 15:13 | Electrocardiogram Report ---
Test Reason : Blood Pressure : */* mmHG Vent. Rate : 94 BPM Atrial Rate : * BPM P-R Int : * ms QRS Dur : 88 ms QT Int : 358 ms P-R-T Axes : * -47 38 degrees QTcB Int : 447 ms Atrial fibrillation -flutter Left axis deviation Left anterior fascicular block Nonspecific T wave abnormality Abnormal ECG When compared with ECG of 29-Mar-2025 13:04, No significant change was found Confirmed by Nicole Carranza ([id number]) on 04/03/2025 3:12:49 PM Referred By: REFERRED SELF Confirmed By: Nicole Carranza
[2025-04-03] MEDS: SODIUM CHLORIDE 0.9% 1,000 ML IV ONE (15:46)
[2025-04-03] MEDS: cefTRIAXone SODIUM 2,000 MG/50 ML BAG IV STA (15:46)
--- NOTE | 2025-04-03 16:26 | History & Physical Report ---
Date of Service April 03, 2025 Assessment & Plan (1) Pneumonia: (2) Atrial fibrillation with rapid ventricular response: (3) Moderate obstructive sleep apnea: (4) Type 2 diabetes mellitus: Admission and Anticipated Discharge Date Admission Date: 79-year-old female with recent discharge from our facility who presented after a fall at home and found to be hypoxic which is a new diagnosis for her. Patient likely has right lower lobe pneumonia although she has a history of atrial fibrillation and heart failure preserved ejection fraction. She has a history of coronary artery disease with 1 cardiac stent no recent chest pain, she has a history of lung disease which has been diagnosed as asthma before she takes chronic daily inhalers. She has sleep apnea wearing a CPAP machine at night significant restless leg syndrome hypothyroidism as a subsequent to Graves' disease and depression. #Acute respiratory failure with hypoxia. Likely influenced by multiple factors but treating for healthcare associated pneumonia with cefepime and doxycycline. With regard to her history of chronic lung disease perhaps asthma continuing Singulair having the patient on DuoNebs. She will be on Mucinex for mucolytic therapy for obstructive sleep apnea and the patient will have a CPAP supplied by the hospital. Difficult to undertake how much or little is impacted by her cardiac rhythm and heart failure preserved ejection fraction, will attempt 1 dose of Lasix 40 mg watching her magnesium which need to be repleted in the emergency department #A-fib / A flutter. Patient is rate controlled with diltiazem and metoprolol. She had been on flecainide in the past and had failed. She locally sees Dr. Singh and does see Aditya MIDDLETON in [place]. She is maintained on apixaban and takes Plavix due to her history of coronary disease with 1 cardiac stent. She has not had any recent angina and does also take isosorbide for this. #Diabetes the patient typically only takes metformin does not follow a very strict diet will have her on insulin sliding scale holding metformin at this time #Depression continue Wellbutrin and Effexor., The patient also does take donepezil 5. Patient confirms to me she is a DNR/DNI History of Present Illness Primary Care Provider: Rico Arevalo MD 71-year-old female was readmitted to our facility after being discharged April 01. At that time she was in the hospital with parainfluenza infection and atrial fibrillation rapid ventricular response. Up titration of metoprolol. Patient however had a fall today while walking through her home she did not sustain any significant injuries but she is found to be newly diagnosed hypoxemic. There is a suggestion of possible right lower lobe infiltrate on chest x-ray with patient is being admitted for healthcare associated pneumonia. Patient states she has never formally seen a business solution analyst but has a history of long standing asthma she has been a distant smoker. She chronically takes Singulair and Trelegy inhaler and has as needed albuterol managed by her primary care physician. She states that her mucus production is changes now with green and yellow she is been coughing up mucus more often when with her previous parainfluenza she had not. She denies any dysphagia or coughing when eating. She says she has been compliant with her home CPAP. With regard to cardiovascular status she has had no recent chest pain gain of body weight or lower extremity swelling. She has no orthopnea. Allergies Allergy/AdvReac Type Severity Reaction Status Date / Time sulfamethoxazole Allergy Intermediate Rash Verified 03/29/25 16:09 [From Bactrim] trimethoprim [From Bactrim] Allergy Intermediate Rash Verified 03/29/25 16:09 codeine AdvReac Intermediate Vomiting & Verified 03/29/25 16:09 hallucinations Home Medications Medication Instructions Recorded Confirmed Type loratadine 10 mg tablet (Allergy 10 mg PO QAM 06/29/20 04/03/25 History Relief (loratadine)) nitroglycerin 0.4 mg sublingual 0.4 mg sublingual Q5M PRN chest 04/29/23 04/03/25 Rx tablet pain #25 tabs clopidogrel 75 mg tablet 75 mg PO DAILY 06/09/23 04/03/25 History albuterol sulfate 90 mcg/actuation 2 puff inhalation QID PRN 01/27/24 04/03/25 Rx aerosol inhaler (Ventolin HFA) shortness of breath or wheezing #18 grams mirabegron 50 mg tablet,extended 50 mg PO QAM #90 tabs 05/28/24 04/03/25 Rx release 24 hr (Myrbetriq) rosuvastatin 40 mg tablet (Crestor) 40 mg PO DAILY #90 tabs 07/13/24 04/03/25 Rx bupropion HCl 300 mg 24 hr tablet, 300 mg PO QAM #90 tabs 07/19/24 04/03/25 Rx extended release metformin 500 mg tablet 500 mg PO BID #200 tabs 08/04/24 04/03/25 Rx fluticasone fur. 200 mcg-umeclid 1 inh inhalation DAILY #180 ea 08/31/24 04/03/25 Rx 62.5 mcg-vilant 25 mcg inhalat.powder (Trelegy Ellipta) losartan 50 mg tablet 50 mg PO DAILY #90 tabs 09/14/24 04/03/25 Rx ibandronate 150 mg tablet 150 mg PO MONTHLY #3 tabs 09/24/24 04/03/25 Rx montelukast 10 mg tablet 10 mg PO QPM #90 tabs 10/27/24 04/03/25 Rx (Singulair) Auto Titrating CPAP #1 ea 11/15/24 03/21/25 Rx blood sugar diagnostic (Accu-Chek #100 ea 12/04/24 03/21/25 Rx Sandy Plus test strips) blood sugar diagnostic (OneTouch #100 ea 12/28/24 03/21/25 Rx Ultra Test strips) isosorbide mononitrate 30 mg 30 mg PO QAM 01/07/25 04/03/25 History tablet,extended release 24 hr vitamin B complex 1 tab PO QAM 01/07/25 04/03/25 History ascorbic acid (vitamin C) 500 mg 500 mg PO DAILY 01/14/25 04/03/25 History capsule ferrous sulfate 325 mg (65 mg 325 mg PO DAILY #90 tabs 01/14/25 04/03/25 Rx iron) tablet pramipexole 0.25 mg tablet 0.25 mg PO QPM #60 tabs 01/14/25 04/03/25 Rx magnesium oxide 400 mg PO DAILY 01/20/25 04/03/25 History apixaban 5 mg tablet (Eliquis) 5 mg PO BID #180 tabs 02/25/25 04/03/25 Rx lorazepam 0.5 mg tablet 0.5 mg PO TID PRN anxiety or 03/01/25 04/03/25 Rx restless legs #90 tabs donepezil 5 mg tablet 5 mg PO DAILY #30 tabs 03/04/25 04/03/25 Rx fenofibrate 54 mg tablet 54 mg PO QAM #90 tabs 03/18/25 04/03/25 Rx pantoprazole 40 mg tablet,delayed 40 mg PO QAM #90 tabs 03/18/25 04/03/25 Rx release (Protonix) diltiazem HCl 240 mg capsule,24 240 mg PO DAILY #30 caps 03/21/25 04/03/25 Rx hr,extended release levothyroxine 50 mcg tablet 50 mcg PO DAILYBB 03/29/25 04/03/25 History mupirocin 2 % topical ointment 1 applic topical BID PRN SKIN 03/29/25 04/03/25 History IRRITATIONS venlafaxine 150 mg 150 mg PO HS 03/29/25 04/03/25 History capsule,extended release 24 hr benzonatate 100 mg capsule 100 mg PO Q6 PRN cough #30 caps 04/01/25 04/03/25 Rx guaifenesin 600 mg tablet, 600 mg PO Q12 #12 tabs 04/01/25 04/03/25 Rx extended release 12 hr (Mucinex) metoprolol succinate 50 mg 150 mg (3 x 50 mg) PO BID #60 tabs 04/01/25 04/03/25 Rx tablet,extended release 24 hr Past Med/Surg History Problem List (Updated 04/03/25 @ 15:54 by Lisandro Glez DO) Head injury (Acute) Fall (Acute) ASTUDILLO (dyspnea on exertion) (Acute) Hypomagnesemia (Acute) Hypoxia (Acute) Pneumonia (Acute) (HFpEF) heart failure with preserved ejection fraction Parainfluenza infection Opacity of lung on imaging study Recurrent UTI Carotid stenosis, right Chronic cerebral ischemia Confusion TIA (transient ischemic attack) Urinary frequency Anticoagulant long-term use Atrial fibrillation with rapid ventricular response SSS (sick sinus syndrome) Mitral regurgitation Constipation Hypoxia (Acute) Hematoma of scalp (Acute) Recurrent falls (Acute) Sinus bradycardia Asymptomatic bacteriuria Fracture of proximal phalanx of digit of left hand Paroxysmal atrial fibrillation with RVR Iron deficiency anemia Lung nodules S/P coronary artery stent placement Memory loss Paroxysmal atrial fibrillation Osteoporosis Vitamin D deficiency (Acute) Back pain, chronic (Acute) Allergic rhinitis (Acute) Osteoarthritis of right knee Microalbuminuria Multinodular goiter Graves disease (Acute) Euthyroid per 01/31/21 thyroid studies -- no medications/issues currently, under surveillance by PCP Moderate obstructive sleep apnea (Acute) CPAP Pulmonary nodules (Acute) Restless legs syndrome (Acute) Medical History Hypomagnesemia Infection due to parainfluenza virus 3 Atrial flutter with rapid ventricular response Anxiety Depression Type 2 diabetes mellitus NIDDM GERD (gastroesophageal reflux disease) Hyperlipidemia Hypomagnesemia Ambulatory dysfunction Elevated brain natriuretic peptide (BNP) level Enterovirus infection Rhinovirus infection Cough Shortness of breath Recurrent falls Mild cognitive disorder CAD (coronary atherosclerotic disease) Hypertension Asthma Pericardial effusion PAD (peripheral artery disease) Hypomagnesemia CR (acute kidney injury) Meningioma Pseudoaneurysm of left femoral artery Left groin mass Abdominal distension Diaphoresis Chest discomfort Dyspnea on exertion Abnormal thyroid blood test Cough Close exposure to 2019-nCoV Conjunctivitis Close exposure to 2019-nCoV Cough productive of purulent sputum History of COVID-19 Dx 05/2020 (treated inpatient at [facility]) Asthma Well controlled Closed fracture of right distal fibula Thyroid nodule Osteoporosis Surgical History Status post placement of cardiac pacemaker Hx of cardiac cath 06/05/2023 H/O laminectomy (~1991) cervical laminectomy. full rom S/P right knee arthroscopy History of esophagogastroduodenoscopy (EGD) History of colonoscopy History of cholecystectomy History of corneal transplant R/L Family History Father , age 82 of heart disease. Diabetes Heart disease Hemangioma Glaucoma Asthma Hypertension Mother , age 78 of a "massive" stroke Stroke Other No family history of adverse response to anesthesia Social History Smoking Status: Former smoker Tobacco Type: Cigarettes Age Started Using Tobacco: 14; Age Quit Using Tobacco: 41; packs per day: 0.5; Second Hand Exposure: No; Do You Dip or Chew Tobacco: No; Hx Alcohol Use: No Hx Substance Use: No Preferred Language: Czech Communication Ability: Impaired Visual Impairment: No Limitations Hearing Ability: Normal Tile Presser Required: No Beliefs That Will Affect Care: None marital status: Current Living Situation: Spouse current occupational status: retired 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 Feels Safe at Home: Yes Dental Care, Regularly: Yes Seatbelt Use: always Assistive Devices: Cane, CPAP, Nebulizer and Walker Review of Systems Review of Systems: Moderate distress and fatigue no headache, no visual changes no speech or swallowing issues no chest pain, pressure or palpitations Increased shortness of breath productive cough no abdominal pain, nausea or vomiting, diarrhea or constipation no dysuria, hematuria or frequency no focal joint pain or swelling no back pain, CVA tenderness or radicular pain no bruising, bleeding or rashes no focal signs of weakness or numbness or altered sensation no complaints of anxiety or depression.. Physical Exam Physical Exam: The patient appeared well nourished and normally developed. Vital signs as documented. She is hypoxic with speaking and exertion Head exam is normocephalic atraumatic Neck is without JVD, thyromegaly, or carotid bruits. Lungs are bibasilar rales worse on the right loose cough during exam Cardiac exam, irregular rates in the 100s to 120s Abdominal exam reveals normal bowel sounds, soft non tender, no masses Extremities are nonedematous and both pedal pulses are present Neurologic exam is alert and oriented, no focal loss of strength or sensation Skin is without bruises or rashes Psychologically is without concerns for anxiety or depression.. Results & Data Results & Data Vital Signs (Past 12 Hours) Vital Signs Temp Pulse Pulse Resp BP BP Pulse Ox 04/03/25 14:20 106 H 26 H 92/67 L 92 04/03/25 13:10 112 H 04/03/25 12:56 93 04/03/25 12:54 124 H 22 117/83 92 04/03/25 12:25 90 04/03/25 12:20 97.9 F 98 H 20 97/65 L 90 O2 Del Method O2 Flow Rate 04/03/25 14:20 Nasal Cannula 2 04/03/25 13:10 04/03/25 12:56 Nasal Cannula 2 04/03/25 12:54 Nasal Cannula 2 04/03/25 12:25 Room Air 04/03/25 12:20 Room Air Laboratory Results Reviewed CBC reviewed chemistry Code Status & VTE Plan VTE Prophylaxis Plan VTE Prophylaxis will be ordered: Yes PG Care Time/CCT Total # of Minutes Spent Total Time Spent with Patient: Total time spent is greater than 50% in coordination of care (as documented) at patient's floor/unit and/or counseling patient: Coding Level of Care Code 68331 INT INP/OBS CARE MIN Diagnoses Pneumonia J18.9 Atrial fibrillation with rapid ventricular response I48.91 Moderate obstructive sleep apnea G47.33 Type 2 diabetes mellitus E11.9
[2025-04-03] MEDS: MAGNESIUM SULFATE / D5W 1 GM/100 ML BAG IV STA (17:05)
[2025-04-03] MEDS ORDERED: ONDANSETRON INJ 2 MG/ML 2 ML VIAL IV PRN (18:09)
[2025-04-03] MEDS ORDERED: GLUCOSE 10 TAB/TUBE PO PRN (18:09)
[2025-04-03] MEDS ORDERED: NITROGLYCERIN SL 0.4 MG/TAB TAB SL PRN (18:09)
[2025-04-03] MEDS ORDERED: DEXTROSE 50% 50 ML SYRINGE IV PRN (18:09)
[2025-04-03] MEDS ORDERED: GLUCOSE 40% GEL 15 GM TUBE PO PRN (18:09)
[2025-04-03] MEDS ORDERED: GLUCAGON FOR INJ 1 MG VIAL SQ PRN (18:09)
[2025-04-03] MEDS ORDERED: CARBOHYDRATES FOR HYPOGLYCEMIA PO PRN (18:09)
[2025-04-03] MEDS ORDERED: LORazepam 0.5 MG TAB PO PRN (18:09)
[2025-04-03] MEDS: FUROSEMIDE INJ 20 MG/2 ML VIAL IV ONE (18:32)
[2025-04-03] MEDS: INSULIN ASPART PER UNIT CHARGE SC SCH (18:40)
[2025-04-03] MEDS: CEFEPIME 2000MG 2,000 MG/20 ML SYR IV SCH (19:20)
[2025-04-03] MEDS: DOXYCYCLINE HYCLATE 100 MG in DEXTROSE 5% MINI-B 100 ML IV SCH (19:25)
[2025-04-03] MEDS: METOPROLOL SUCC 50MG EXT REL TAB PO SCH (19:43)
[2025-04-03] MEDS: ACETAMINOPHEN 325 MG TAB PO PRN (19:44)
[2025-04-03] MEDS: LEVALBUTEROL 1.25 MG/3 ML NEB NEB SCH (20:11)
[2025-04-03] MEDS: PRAMIPEXOLE DIHYDROCHLO 0.25 MG TAB PO SCH (20:12)
[2025-04-03] MEDS: APIXABAN 5 MG TABLET PO SCH (20:12)
[2025-04-03] MEDS: guaiFENesin 600 MG TABCR PO SCH (20:12)
[2025-04-03] MEDS: VENLAFAXINE HCL XR 150 MG CAPXR PO SCH (20:12)
[2025-04-03 20:13] LABS: Appearance Urine Clear (Clear); Bacteria Urine Automated 4+ (None Seen); Bilirubin Urine Negative (Negative); Blood Urine Negative (Negative); Cast Urine Automated 0-2 /lpf (0-2); Color Urine Yellow; Epithelial Cell Urine Auto 0-2 /hpf (0-2); Glucose Urine UA Negative (Negative); Ketones Urine Negative (Negative); Leukocyte Esterase Urine 2+ (Negative); Nitrite Urine Positive (Negative); Protein Urine Negative (Negative); RBC Urine Automated 0-2 /hpf (0-2); Urobilinogen Urine Negative (Negative); pH Urine 5.5 (4.5-7.5)
[2025-04-03] MEDS: MONTELUKAST SODIUM 10 MG TABLET PO SCH (20:13)
[2025-04-03] MEDS: ALBUT/IPRATROP 3MG/0.5MG NEB 3 ML VIAL NEB SCH (20:19)
[2025-04-03] MEDS: METOPROLOL TARTRATE 1 MG/ML VIAL IV STA (21:14)
[2025-04-04] MEDS: LEVALBUTEROL 1.25 MG/3 ML NEB NEB SCH (01:13)
[2025-04-04] MEDS: LEVOTHYROXINE SODIUM 50 MCG TABLET PO SCH (06:17)
[2025-04-04] MEDS: buPROPion XL 300 MG TABCR PO SCH (08:21)
[2025-04-04] MEDS: CLOPIDOGREL BISULFATE 75 MG TAB PO SCH (08:21)
[2025-04-04] MEDS: dilTIAZem HCL 240 MG CAPCR PO SCH (08:21)
[2025-04-04] MEDS: MAGNESIUM OXIDE 400 MG TAB PO SCH (08:22)
[2025-04-04] MEDS: ISOSORBIDE MONO EXTENDED REL 30 MG TABCR PO SCH (08:22)
[2025-04-04] MEDS: PANTOprazole 40 MG TAB PO SCH (08:22)
[2025-04-04] MEDS: ROSUVASTATIN CALCIUM 20 MG TAB PO SCH (08:22)
[2025-04-04] MEDS: DONEPEZIL HCL 5 MG TAB PO SCH (08:22)
[2025-04-04 08:58] LABS: Estimated Average Glucose 154 mg/dl
[2025-04-04 09:03] LABS: Hematocrit (blood only) 36.3 % (37.0-47.0); Hemoglobin 11.5 g/dl (12.0-16.0); Mean Corpuscular Hemoglobin 30.2 pg (25.0-34.0); Mean Corpuscular Hgb Conc 31.7 g/dL (32.0-36.0); Mean Corpuscular Volume 95.3 fL (80.0-100.0); Mean Platelet Volume 9.7 fL (9.4-12.4); Platelet Count 431 K/uL (130-400); RDW Coefficient of Variation 15.6 % (11.5-14.5); RDW Standard Deviation 54.4 fL (36.4-46.3); Red Blood Count 3.81 M/uL (4.20-5.40); White Blood Count 11.56 K/ul (4.8-10.8)
[2025-04-04 09:22] LABS: BUN Creatinine Ratio 21.1 (10-20); Calcium 9.3 mg/dl (8.6-10.3); Creatinine Clr Calc Pharmacy 56.4 ml/min; Magnesium 1.6 mg/dl (1.7-2.4)
--- NOTE | 2025-04-04 09:46 | Hospitalist Progress Note ---
Date of Service April 04, 2025 Assessment & Plan (1) Pneumonia: Plan: -recent hospitalization for parainfluenza virus -on cefepime/doxycycline day #2 -dunoebs (2) Atrial fibrillation with rapid ventricular response: Plan: -on metoprolol and diltiazem -apixaban (3) Moderate obstructive sleep apnea: Plan: -CPA QHS (4) Type 2 diabetes mellitus: Plan: -RISS Admission and Anticipated Discharge Date Admission Date: April 03, 2025 Subjective No events overnight. Pt resting comfortably in bed. Review of Systems Review of Systems: CONST: Negative for fever, body aches and chills. HENT: Negative for neck pain/stiffness, headache, congestion, sore throat, swelling. EYES: Negative for discharge/pain or vision changes. RESP: Negative for cough/hemoptysis and shortness of breath. CV: Negative chest pain, difficulty breathing, palpitations. ABD: Negative pain, nausea, vomiting. : Negative increase frequency, dysuria, blood in urine or stool. MUSC: Negative for muscle aches, edema. SKIN: Negative rash, lesions/sores. NEURO: Negative headache, dizziness, weakness. Physical Exam Physical Exam: GENERAL APPEARANCE NAD, activity normal for age, well developed/ well nourished, no cyanosis, pallor, or diaphoresis. EYES lids/conjunctiva normal. EARS/NOSE/THROAT Mucous membranes moist, nares normal, lips/teeth normal uvula midline without oral pharyngeal erythema, exudate or swelling TMs normal bilaterally. No lymphangitis/lymphedema. HEAD/NECK normocephalic atraumatic, no facial trauma, neck is supple. RESPIRATORY respiratory effort normal, speaks in full sentences, no tripod position, no accessory muscle use. Lungs clear to auscultation without rhonchi, wheezes, rales CARDIAC Regular rate and rhythm, no edema. ABDOMINAL Soft, ND/NT. No evidence of fluid wave. No pulsatile masses on exam, rebound tenderness, Norwood sign or pain over Mcburney's point. MUSCLES/EXTREMITIES No abnormal range of motion, no swelling. SKIN Warm, pink and dry. No rashes, dermatoses, petechiae or lesions. NEUROLOGICAL Speech is clear and appropriate. Normal level of consciousness. Gait and coordination are normal. 5/5 strength in all extremities. PSYCH Normal mood and affect. Judgement/competence is appropriate Results & Data Results & Data Vital Signs (Past 12 Hours) Vital Signs Temp Pulse Pulse Resp BP BP Pulse Ox 04/04/25 07:30 36.8 C 120 H 18 133/92 94 04/04/25 07:01 104 H 18 95 04/04/25 02:42 36.9 C 89 18 132/77 94 04/04/25 01:14 103 H 18 94 04/03/25 22:57 116 H 25 H 94 04/03/25 22:16 36.9 C 110 H 18 130/70 93 04/03/25 22:13 108 H 130/70 04/03/25 21:59 107 H O2 Del Method O2 Flow Rate 04/04/25 07:30 Nebulizer 04/04/25 07:01 Nasal Cannula 4 04/04/25 02:42 Nasal Cannula 04/04/25 01:14 Nasal Cannula 4 04/03/25 22:57 4 04/03/25 22:16 Nasal Cannula 4 04/03/25 22:13 04/03/25 21:59 PG Care Time/CCT Total # of Minutes Spent Total Time Spent with Patient: Total time spent is greater than 50% in coordination of care (as documented) at patient's floor/unit and/or counseling patient: Coding Level of Care Code 59555 SUB INP/OBS CARE 2/35MIN Diagnoses Pneumonia J18.9 Atrial fibrillation with rapid ventricular response I48.91 Moderate obstructive sleep apnea G47.33 Type 2 diabetes mellitus E11.9
[2025-04-04] MEDS: METOPROLOL TARTRATE 1 MG/ML VIAL IV PRN (11:56)
[2025-04-05] MEDS: MAGNESIUM SULFATE / D5W 1 GM/100 ML BAG IV SCH (01:29)
[2025-04-05] MEDS: LEVALBUTEROL 1.25 MG/3 ML NEB NEB STA (04:25)
[2025-04-05 08:00] LABS: Hematocrit (blood only) 33.4 % (37.0-47.0); Hemoglobin 10.7 g/dl (12.0-16.0); Mean Corpuscular Hemoglobin 29.6 pg (25.0-34.0); Mean Corpuscular Volume 92.3 fL (80.0-100.0); Mean Platelet Volume 9.4 fL (9.4-12.4); Platelet Count 430 K/uL (130-400); RDW Coefficient of Variation 15.2 % (11.5-14.5); RDW Standard Deviation 51.7 fL (36.4-46.3); Red Blood Count 3.62 M/uL (4.20-5.40); White Blood Count 10.52 K/ul (4.8-10.8)
[2025-04-05 08:13] LABS: BUN Creatinine Ratio 21.5 (10-20); Calcium 9.4 mg/dl (8.6-10.3); Creatinine Clr Calc Pharmacy 61.6 ml/min; Magnesium 1.9 mg/dl (1.7-2.4); Potassium 3.6 mmol/L (3.5-5.1)
--- NOTE | 2025-04-05 10:57 | Hospitalist Progress Note ---
Date of Service April 05, 2025 Assessment & Plan (1) Pneumonia: Plan: -recent hospitalization for parainfluenza virus -on cefepime/doxycycline day #3 -duonebs -Pt is a 1 day bounce back, would likely benefit from a complete course of inpatient IV abx for HCAP to assure resolution of PNA. (2) Atrial fibrillation with rapid ventricular response: Plan: -on metoprolol and diltiazem -apixaban (3) Moderate obstructive sleep apnea: Plan: -CPA QHS (4) Type 2 diabetes mellitus: Plan: -RISS Plan Plan to d/c after complete course of abx for HCAP, pt is clinically improving. Admission and Anticipated Discharge Date Admission Date: April 03, 2025 Subjective No events overnight. Pt resting comfortably in bed. Review of Systems Review of Systems: CONST: Negative for fever, body aches and chills. HENT: Negative for neck pain/stiffness, headache, congestion, sore throat, swelling. EYES: Negative for discharge/pain or vision changes. RESP: Negative for cough/hemoptysis and shortness of breath. CV: Negative chest pain, difficulty breathing, palpitations. ABD: Negative pain, nausea, vomiting. : Negative increase frequency, dysuria, blood in urine or stool. MUSC: Negative for muscle aches, edema. SKIN: Negative rash, lesions/sores. NEURO: Negative headache, dizziness, weakness. Physical Exam Physical Exam: GENERAL APPEARANCE NAD, activity normal for age, well developed/ well nourished, no cyanosis, pallor, or diaphoresis. EYES lids/conjunctiva normal. EARS/NOSE/THROAT Mucous membranes moist, nares normal, lips/teeth normal uvula midline without oral pharyngeal erythema, exudate or swelling TMs normal bilaterally. No lymphangitis/lymphedema. HEAD/NECK normocephalic atraumatic, no facial trauma, neck is supple. RESPIRATORY respiratory effort normal, speaks in full sentences, no tripod position, no accessory muscle use. Lungs clear to auscultation without rhonchi, wheezes, rales CARDIAC Regular rate and rhythm, no edema. ABDOMINAL Soft, ND/NT. No evidence of fluid wave. No pulsatile masses on exam, rebound tenderness, Norwood sign or pain over Mcburney's point. MUSCLES/EXTREMITIES No abnormal range of motion, no swelling. SKIN Warm, pink and dry. No rashes, dermatoses, petechiae or lesions. NEUROLOGICAL Speech is clear and appropriate. Normal level of consciousness. Gait and coordination are normal. 5/5 strength in all extremities. PSYCH Normal mood and affect. Judgement/competence is appropriate Results & Data Results & Data Vital Signs (Past 12 Hours) Vital Signs Temp Pulse Pulse Resp BP BP Pulse Ox 04/05/25 09:03 04/05/25 07:22 36.4 C L 109 H 22 124/73 92 04/05/25 07:05 104 H 18 96 04/05/25 04:23 118 H 22 92 04/05/25 03:10 36.8 C 118 H 18 123/88 93 04/05/25 00:49 113 H 04/05/25 00:34 132 H 123/80 04/05/25 00:33 134 H 123/80 04/05/25 00:13 120 H 18 91 O2 Del Method O2 Flow Rate 04/05/25 09:03 Nasal Cannula 2 04/05/25 07:22 Nasal Cannula 2 04/05/25 07:05 Nasal Cannula 3 04/05/25 04:23 Nasal Cannula 3 04/05/25 03:10 Nasal Cannula 04/05/25 00:49 04/05/25 00:34 04/05/25 00:33 04/05/25 00:13 Nasal Cannula 2 PG Care Time/CCT Total # of Minutes Spent Total Time Spent with Patient: Total time spent is greater than 50% in coordination of care (as documented) at patient's floor/unit and/or counseling patient: Coding Level of Care Code 11923 SUB INP/OBS CARE 2/35MIN Diagnoses Pneumonia J18.9 Atrial fibrillation with rapid ventricular response I48.91 Moderate obstructive sleep apnea G47.33 Type 2 diabetes mellitus E11.9
[2025-04-06 07:10] LABS: Hematocrit (blood only) 33.5 % (37.0-47.0); Hemoglobin 10.8 g/dl (12.0-16.0); Mean Corpuscular Hemoglobin 30.3 pg (25.0-34.0); Mean Corpuscular Hgb Conc 32.2 g/dL (32.0-36.0); Mean Corpuscular Volume 93.8 fL (80.0-100.0); Mean Platelet Volume 9.4 fL (9.4-12.4); Platelet Count 468 K/uL (130-400); RDW Standard Deviation 52.1 fL (36.4-46.3); Red Blood Count 3.57 M/uL (4.20-5.40); White Blood Count 9.78 K/ul (4.8-10.8)
[2025-04-06 07:46] LABS: Calcium 9.4 mg/dl (8.6-10.3); Creatinine Clr Calc Pharmacy 61.6 ml/min; Magnesium 1.5 mg/dl (1.7-2.4); Potassium 3.8 mmol/L (3.5-5.1)
--- NOTE | 2025-04-06 16:35 | Hospitalist Progress Note ---
Date of Service April 06, 2025 Assessment & Plan (1) Pneumonia: Plan: -recent hospitalization for parainfluenza virus -on cefepime/doxycycline day #3 -robert De-escalate cefepime to ceftriaxone today (2) Atrial fibrillation with rapid ventricular response: Plan: -on metoprolol and diltiazem -apixaban (3) Moderate obstructive sleep apnea: Plan: -CPA QHS (4) Type 2 diabetes mellitus: Plan: -RISS Plan CODE STATUS: DNR/DNI Admission and Anticipated Discharge Date Admission Date: April 03, 2025 Subjective Patient says she feels better overall. Denies chest pain or shortness of breath. She says, "I do not want to get out of the hospital too soon this time". Review of Systems Review of Systems: All systems reviewed & are unremarkable except as noted in Subjective Physical Exam Physical Exam: General: Awake, conversant Heart: S1, S2/regular rate and rhythm, no murmur rubs or gallops Lungs: Clear to auscultation bilaterally. Normal effort Abdomen: Soft/nontender/nondistended. No hepatosplenomegaly Extremities: No clubbing/cyanosis. No edema Behavior: Appropriate, cooperative Results & Data Results & Data Vital Signs (Past 12 Hours) Vital Signs Temp Pulse Pulse Resp BP Pulse Ox O2 Del Method 04/06/25 14:53 73 04/06/25 13:37 82 18 93 Nasal Cannula 04/06/25 11:39 36.7 C 102 H 17 127/86 92 Nasal Cannula 04/06/25 09:49 Nasal Cannula 04/06/25 07:39 108 H 04/06/25 07:26 37.2 C 112 H 18 119/89 92 Nasal Cannula 04/06/25 07:18 112 H 18 92 Nasal Cannula O2 Flow Rate 04/06/25 14:53 04/06/25 13:37 2 04/06/25 11:39 2 04/06/25 09:49 2 04/06/25 07:39 04/06/25 07:26 2.0 04/06/25 07:18 2 Laboratory Results Abnormal lab results 04/05/25 04/06/25 04/06/25 Range/Units 20:06 06:53 07:28 RBC 3.57 L (4.20-5.40) M/uL Hgb 10.8 L (12.0-16.0) g/dl Hct 33.5 L (37.0-47.0) % RDW Std Deviation 52.1 H (36.4-46.3) fL RDW Coeff of Ambreen 15.0 H (11.5-14.5) % Plt Count 468 H (130-400) K/uL Glucose 153 H (70-99(Fasting)) mg/dl POC Glucose 153 H 175 H (70-99) mg/dl Magnesium 1.5 L (1.7-2.4) mg/dl 04/06/25 04/06/25 Range/Units 11:25 16:19 RBC (4.20-5.40) M/uL Hgb (12.0-16.0) g/dl Hct (37.0-47.0) % RDW Std Deviation (36.4-46.3) fL RDW Coeff of Ambreen (11.5-14.5) % Plt Count (130-400) K/uL Glucose (70-99(Fasting)) mg/dl POC Glucose 166 H 137 H (70-99) mg/dl Magnesium (1.7-2.4) mg/dl PG Care Time/CCT Total # of Minutes Spent Total Time Spent with Patient: Total time spent is greater than 50% in coordination of care (as documented) at patient's floor/unit and/or counseling patient: Coding Level of Care Code 19017 SUB INP/OBS CARE 2/35MIN Diagnoses Pneumonia J18.9 Atrial fibrillation with rapid ventricular response I48.91 Moderate obstructive sleep apnea G47.33 Type 2 diabetes mellitus E11.9
[2025-04-06] MEDS: cefTRIAXone SODIUM 1,000 MG/50 ML BAG IV SCH (17:19)
[2025-04-07 08:14] LABS: Hematocrit (blood only) 33.9 % (37.0-47.0); Hemoglobin 10.9 g/dl (12.0-16.0); Mean Corpuscular Hemoglobin 29.9 pg (25.0-34.0); Mean Corpuscular Hgb Conc 32.2 g/dL (32.0-36.0); Mean Corpuscular Volume 93.1 fL (80.0-100.0); Mean Platelet Volume 9.3 fL (9.4-12.4); Platelet Count 521 K/uL (130-400); RDW Coefficient of Variation 14.8 % (11.5-14.5); RDW Standard Deviation 51.1 fL (36.4-46.3); Red Blood Count 3.64 M/uL (4.20-5.40); White Blood Count 9.61 K/ul (4.8-10.8)
[2025-04-07 08:33] LABS: BUN Creatinine Ratio 17.9 (10-20); Calcium 9.5 mg/dl (8.6-10.3); Creatinine Clr Calc Pharmacy 59.8 ml/min; Potassium 3.8 mmol/L (3.5-5.1)
[2025-04-07] MEDS: DOXYCYCLINE HYCLATE 100 MG CAP PO SCH (08:47)
--- NOTE | 2025-04-07 14:50 | Hospitalist Progress Note ---
Date of Service April 07, 2025 Assessment & Plan (1) Pneumonia: Plan: -recent hospitalization for parainfluenza virus -on cefepime/doxycycline -robert De-escalated cefepime to ceftriaxone Switch to p.o. Augmentin and p.o. doxycycline Interestingly, noted that the chest x-ray on admission showed pulmonary congestion and not an opacity. Also noted the patient was given a dose of Lasix with significant improvement. Today patient appears euvolemic. Will hold off on further diuretics (2) Atrial fibrillation with rapid ventricular response: Plan: -on metoprolol and diltiazem Noted that the heart rate has been uncontrolled Consult cardiology -apixaban (3) Moderate obstructive sleep apnea: Plan: -CPA QHS (4) Type 2 diabetes mellitus: Plan: -RISS Plan CODE STATUS: DNR/DNI Admission and Anticipated Discharge Date Admission Date: April 03, 2025 Subjective Patient says she is is feeling better overall. But noted that she is still using oxygen Review of Systems Review of Systems: All systems reviewed & are unremarkable except as noted in Subjective Physical Exam Physical Exam: General: Awake, conversant Heart: S1, S2/regular rate and rhythm, no murmur rubs or gallops Lungs: Clear to auscultation bilaterally. Normal effort Abdomen: Soft/nontender/nondistended. No hepatosplenomegaly Extremities: No clubbing/cyanosis. No edema Behavior: Appropriate, cooperative Results & Data Results & Data Vital Signs (Past 12 Hours) Vital Signs Temp Pulse Pulse Pulse Pulse Pulse Resp 04/07/25 14:23 75 04/07/25 13:25 118 H 18 04/07/25 11:53 36.9 C 105 H 18 04/07/25 11:18 125 H 119 H 118 H 04/07/25 07:58 36.5 C 116 H 17 04/07/25 07:45 04/07/25 07:33 81 16 04/07/25 07:30 117 H 04/07/25 04:24 36.6 C 103 H 18 Resp Resp Resp BP Pulse Ox Pulse Ox Pulse Ox 04/07/25 14:23 04/07/25 13:25 93 04/07/25 11:53 133/78 92 04/07/25 11:18 22 24 18 94 87 L 04/07/25 07:58 135/96 93 04/07/25 07:45 04/07/25 07:33 93 04/07/25 07:30 04/07/25 04:24 132/88 91 Pulse Ox O2 Del Method O2 Flow Rate O2 Flow Rate 04/07/25 14:23 04/07/25 13:25 Nasal Cannula 2 04/07/25 11:53 Nasal Cannula 2 04/07/25 11:18 87 L 2 04/07/25 07:58 Nasal Cannula 2 04/07/25 07:45 Nasal Cannula 2 04/07/25 07:33 Nasal Cannula 2 04/07/25 07:30 04/07/25 04:24 Nasal Cannula 2 Laboratory Results Abnormal lab results 04/06/25 04/06/25 04/07/25 Range/Units 16:19 19:54 07:22 RBC (4.20-5.40) M/uL Hgb (12.0-16.0) g/dl Hct (37.0-47.0) % RDW Std Deviation (36.4-46.3) fL RDW Coeff of Ambreen (11.5-14.5) % Plt Count (130-400) K/uL MPV (9.4-12.4) fL Glucose (70-99(Fasting)) mg/dl POC Glucose 137 H 125 H 149 H (70-99) mg/dl B-Natriuretic Peptide (0-100) pg/ml 04/07/25 04/07/25 Range/Units 07:34 11:30 RBC 3.64 L (4.20-5.40) M/uL Hgb 10.9 L (12.0-16.0) g/dl Hct 33.9 L (37.0-47.0) % RDW Std Deviation 51.1 H (36.4-46.3) fL RDW Coeff of Ambreen 14.8 H (11.5-14.5) % Plt Count 521 H (130-400) K/uL MPV 9.3 L (9.4-12.4) fL Glucose 145 H (70-99(Fasting)) mg/dl POC Glucose 189 H (70-99) mg/dl B-Natriuretic Peptide 1158 H (0-100) pg/ml PG Care Time/CCT Total # of Minutes Spent Total Time Spent with Patient: Total time spent is greater than 50% in coordination of care (as documented) at patient's floor/unit and/or counseling patient: Coding Level of Care Code 40188 SUB INP/OBS CARE 2MIN Diagnoses Pneumonia J18.9 Atrial fibrillation with rapid ventricular response I48.91 Moderate obstructive sleep apnea G47.33 Type 2 diabetes mellitus E11.9
--- NOTE | 2025-04-07 16:24 | Cardiology Consultation ---
Date of Consultation April 07, 2025 Assessment & Plan (1) Atrial fibrillation with rapid ventricular response: (2) Anticoagulant long-term use: (3) S/P coronary artery stent placement: (4) CAD (coronary atherosclerotic disease): (5) Hypertension: Plan ASSESSMENT/PLAN: 1. Atrial fibrillation with rapid ventricular response: Likely permanent A-fib. Reports feeling worn out/fatigued with elevated heart rates but otherwise seems asymptomatic. Can increase diltiazem to 360 mg daily. Continue metoprolol 150 mg twice daily. Discussed possible AV martha ablation with patient, daughter, and EP. EP has felt that maintaining sinus rhythm is unlikely. A-fib was not controlled with amiodarone. If heart rates are uncontrollable with further titration of diltiazem, consider AV martha ablation. Patient agreeable. Continue anticoagulation for stroke risk reduction. Monitor for bleeding. 2. CAD s/p RCA PCI x 2 (and atherectomy): Continue Plavix 75 mg daily while on Eliquis 5 mg twice daily. Has had GI intolerance to aspirin in the past and feels much better with Plavix. If Plavix needs to be held for procedure, would use aspirin 81 mg once daily in its place throughout the perioperative period. Recommend antiplatelet therapy without interruption indefinitely. Continue high intensity statin therapy, nitrate therapy, calcium channel hanna. 911 for angina that does not resolve within 5 minutes of nitroglycerin. 3. Dyslipidemia: LDL well-controlled. Continue rosuvastatin 40 mg daily. LDL was not at goal with atorvastatin. Mediterranean diet. Regular cardiovascular exercise. 4. Hypertension: Blood pressure mostly reasonable. Adjusting diltiazem as above. Otherwise, continue current regimen. 5. Pneumonia: Recently hospitalized for parainfluenza virus per hospitalist service. Plan per hospitalist. 6. Disposition: Follow-up with electrophysiology in the outpatient setting. Patient care communicated with primary hospitalist service. Her daughter, Margret, was updated via telephone. Highly complex medical issues, for which AV martha ablation was considered and discussed. Thank you for allowing me to participate in the care of your patient. Please call for any other questions or concerns. Sincerely, Chance Singh M.D. History of Present Illness Reason for Consultation: A-fib with RVR Requesting Physician: Leila Higgins MD Attending Physician: Leila Higgins MD History of Present Illness Patient is a 79-year-old woman with a history of CAD s/p RCA PCI, atrial fibrillation, atrial flutter, tachybradycardia syndrome s/p dual-chamber pacemaker, hypertension, dyslipidemia, type 2 diabetes, and asthma. She has experienced dyspnea on exertion, limiting daily activities in 2022. She underwent cardiac catheterization demonstrating RCA CAD. Attempts for further investigation at [facility] were unsuccessful. She was referred to [facility] given high calcium burden and possibility of atherectomy. Dr. Abdalla performed RCA atherectomy and PCI x2 on 06/05/2023. Left femoral artery developed pseud oaneurysm, requiring thrombin injection at [facility] on 06/20/2023. She was hospitalized on 01/07/2025 after a mechanical fall. She was noted to be in atrial flutter. She spontaneously converted to sinus rhythm at times during her hospital stay but continued to have paroxysmal atrial flutter with rapid ventricular response. She was asymptomatic. Given that she was not adequately rate controlled despite escalating doses of beta-hanna, and exhibited mild sinus bradycardia while in sinus rhythm, the decision was made to initiate rhythm control with amiodarone. Despite amiodarone, she was readmitted in January 2025 with a fall and was noted again to be in atrial fibrillation with rapid ventricular response. Amiodarone was discontinued by electrophysiology and recommended pacemaker for tachybradycardia syndrome which was placed on 01/25/2025. She has been rehospitalized multiple times and noted to have elevated heart rates and metoprolol and diltiazem have been titrated. She has had the following studies/procedures: 1. Stress echo 10/15/2022: Nondiagnostic due to failure to achieve target heart rate. Normal LV size, wall thickness, and systolic function. EF 58%. No significant valvular abnormality. 2. Pharmacologic nuclear stress 11/19/2022: Negative for ischemia. Very mild and small fixed defect likely artifact given normal wall motion. LVEF 79%. 3. Cardiac cath 05/15/2023 [facility] (Dr. Baig): Left main luminal irregularities. LAD 30%. RCA proximal 70%. Catheters were unable to be passed through the right subclavian artery. Left heart catheterization performed via the left radial artery. LVEDP 4. PA 29/8/17. PCWP 6. RV 29/0. Mean RA 3. 4. Cardiac cath 05/16/2023 [facility] (Dr. Ugalde): Attempted FFR of RCA. Performed via the right femoral artery. Difficulty advancing J-tip wire. Fluoroscopy suggested iliac and distal aortic atherosclerosis. Eventually, wires were able to be sufficiently advanced however cannulation of the RCA was difficult. Once engaged, guidewire could not be sufficiently advanced beyond RCA lesion. 5. Cardiac cath 06/05/2023 [facility] (Dr. Abdalla): Performed via left femoral artery. Proximal RCA 90%. Rotational atherectomy performed and then PCI with 2 overlapping 3 x 16 mm and 3 x 32 mm Synergy BERNARDO. Mid to proximal segment postdilated with 3.25 mm NC. Complicated by left femoral artery pseudoaneurysm. 6. CT abdomen/pelvis 06/19/2023 [facility]: Proximal left femoral artery pseudoaneurysm. Severe atherosclerosis with severe stenosis of the proximal right femoral artery and near occlusion of the mid right femoral artery and proximal right internal iliac artery. 7. Left femoral arterial duplex 06/19/2023 [facility]: 4.7 cm x 3.9 cm pseudoaneurysm arising from left femoral artery. 8. Pseudoaneurysm thrombin injection 06/20/2023 [facility]: Successful. 9. Echo 07/29/2023 [facility]: Normal LV size. EF > 70%. Normal wall motion. Moderate LVH. Moderate left atrial dilation. Sclerotic aortic valve without significant stenosis. RVSP 38. Small pericardial effusion. No significant change from 10/15/2022. 10. Echo 01/08/2025 [facility]: Normal LV size, wall motion, systolic function. EF 60-65%. Moderate LVH. Severe left atrial dilation. Moderate MAC. Mild MR. RVSP 39. Small pericardial effusion without echocardiographic evidence of tamponade physiology. 11. Dual-chamber pacemaker implantation 01/25/2025 (Dr. Kline): Left bundle. [employer]. 12. Event monitor 01/18/2025 to 02/16/2025: Predominantly A-fib (77% burden) typically with elevated heart rates although average heart rate 80 bpm. Intermittent sinus bradycardia with heart rate often in the 40s while in sinus. 13. Echo 03/30/2025: LV EF 55-60%. Normal wall motion. Moderate LVH. Severe left atrial dilation. Mild MR. Normal RVSP. She was hospitalized again on 04/03/2025 with right lower lobe pneumonia after being discharged on 04/01/2025 when she presented with progressive shortness of breath and productive cough with yellow sputum and generalized weakness. Since being here, she has been treated with antibiotic therapy and nebulizer treatments. She feels much better. Coughing has improved. Shortness of breath has improved. She denies edema, syncope, near syncope, chest pain, edema, melena, hematochezia, or hematuria. She admits that her balance has been "horrible" and she now uses a walker for ambulation at home. She states that she has not fallen with her walker. Her daughter had expressed that her mother's heart rate continues to be elevated despite escalating doses of metoprolol and the addition of diltiazem over the past few months. Patient and her daughter state that when her heart rates are elevated, she does not typically feel as well and feels quite fatigued. Review of systems: As above. Family history: Father had CAD diagnosed in his 60s. Social history: She quit smoking approximately 51 years of age after approximately 30 pack years. Occasional alcohol. No drugs. She is and lives at home with her , You. She has 2 children (Kanidce Quiros - nurse; son Javy). Her ksrgihet-ls-owe, Kasey (ER nurse at [employer] [facility] [place]). She was unaccompanied. Allergies Allergy/AdvReac Type Severity Reaction Status Date / Time sulfamethoxazole Allergy Intermediate Rash Verified 03/29/25 16:09 [From Bactrim] trimethoprim [From Bactrim] Allergy Intermediate Rash Verified 03/29/25 16:09 codeine AdvReac Intermediate Vomiting & Verified 03/29/25 16:09 hallucinations Home Medications Medication Instructions Recorded Confirmed Type loratadine 10 mg tablet (Allergy 10 mg PO QAM 06/29/20 04/03/25 History Relief (loratadine)) nitroglycerin 0.4 mg sublingual 0.4 mg sublingual Q5M PRN chest 04/29/23 04/03/25 Rx tablet pain #25 tabs clopidogrel 75 mg tablet 75 mg PO DAILY 06/09/23 04/03/25 History albuterol sulfate 90 mcg/actuation 2 puff inhalation QID PRN 01/27/24 04/03/25 Rx aerosol inhaler (Ventolin HFA) shortness of breath or wheezing #18 grams mirabegron 50 mg tablet,extended 50 mg PO QAM #90 tabs 05/28/24 04/03/25 Rx release 24 hr (Myrbetriq) rosuvastatin 40 mg tablet (Crestor) 40 mg PO DAILY #90 tabs 07/13/24 04/03/25 Rx bupropion HCl 300 mg 24 hr tablet, 300 mg PO QAM #90 tabs 07/19/24 04/03/25 Rx extended release metformin 500 mg tablet 500 mg PO BID #200 tabs 08/04/24 04/03/25 Rx fluticasone fur. 200 mcg-umeclid 1 inh inhalation DAILY #180 ea 08/31/24 04/03/25 Rx 62.5 mcg-vilant 25 mcg inhalat.powder (Trelegy Ellipta) losartan 50 mg tablet 50 mg PO DAILY #90 tabs 09/14/24 04/03/25 Rx ibandronate 150 mg tablet 150 mg PO MONTHLY #3 tabs 09/24/24 04/03/25 Rx montelukast 10 mg tablet 10 mg PO QPM #90 tabs 10/27/24 04/03/25 Rx (Singulair) Auto Titrating CPAP #1 ea 11/15/24 03/21/25 Rx blood sugar diagnostic (Accu-Chek #100 ea 12/04/24 03/21/25 Rx Sandy Plus test strips) blood sugar diagnostic (OneTouch #100 ea 12/28/24 03/21/25 Rx Ultra Test strips) isosorbide mononitrate 30 mg 30 mg PO QAM 01/07/25 04/03/25 History tablet,extended release 24 hr vitamin B complex 1 tab PO QAM 01/07/25 04/03/25 History ascorbic acid (vitamin C) 500 mg 500 mg PO DAILY 01/14/25 04/03/25 History capsule ferrous sulfate 325 mg (65 mg 325 mg PO DAILY #90 tabs 01/14/25 04/03/25 Rx iron) tablet pramipexole 0.25 mg tablet 0.25 mg PO QPM #60 tabs 01/14/25 04/03/25 Rx magnesium oxide 400 mg PO DAILY 01/20/25 04/03/25 History apixaban 5 mg tablet (Eliquis) 5 mg PO BID #180 tabs 02/25/25 04/03/25 Rx lorazepam 0.5 mg tablet 0.5 mg PO TID PRN anxiety or 03/01/25 04/03/25 Rx restless legs #90 tabs donepezil 5 mg tablet 5 mg PO DAILY #30 tabs 03/04/25 04/03/25 Rx fenofibrate 54 mg tablet 54 mg PO QAM #90 tabs 03/18/25 04/03/25 Rx pantoprazole 40 mg tablet,delayed 40 mg PO QAM #90 tabs 03/18/25 04/03/25 Rx release (Protonix) diltiazem HCl 240 mg capsule,24 240 mg PO DAILY #30 caps 03/21/25 04/03/25 Rx hr,extended release levothyroxine 50 mcg tablet 50 mcg PO DAILYBB 03/29/25 04/03/25 History mupirocin 2 % topical ointment 1 applic topical BID PRN SKIN 03/29/25 04/03/25 History IRRITATIONS venlafaxine 150 mg 150 mg PO HS 03/29/25 04/03/25 History capsule,extended release 24 hr benzonatate 100 mg capsule 100 mg PO Q6 PRN cough #30 caps 04/01/25 04/03/25 Rx guaifenesin 600 mg tablet, 600 mg PO Q12 #12 tabs 04/01/25 04/03/25 Rx extended release 12 hr (Mucinex) metoprolol succinate 50 mg 150 mg (3 x 50 mg) PO BID #60 tabs 04/01/25 04/03/25 Rx tablet,extended release 24 hr Problem List Head injury (Acute) Fall (Acute) ASTUDILLO (dyspnea on exertion) (Acute) Hypomagnesemia (Acute) Hypoxia (Acute) Pneumonia (Acute) (HFpEF) heart failure with preserved ejection fraction Parainfluenza infection Opacity of lung on imaging study Recurrent UTI Carotid stenosis, right Chronic cerebral ischemia Confusion TIA (transient ischemic attack) Urinary frequency Anticoagulant long-term use Atrial fibrillation with rapid ventricular response SSS (sick sinus syndrome) Mitral regurgitation Constipation Hypoxia (Acute) Hematoma of scalp (Acute) Recurrent falls (Acute) Sinus bradycardia Asymptomatic bacteriuria Fracture of proximal phalanx of digit of left hand Paroxysmal atrial fibrillation with RVR Iron deficiency anemia Lung nodules S/P coronary artery stent placement Memory loss Paroxysmal atrial fibrillation Osteoporosis Vitamin D deficiency (Acute) Back pain, chronic (Acute) Allergic rhinitis (Acute) Osteoarthritis of right knee Microalbuminuria Multinodular goiter Graves disease (Acute) Euthyroid per 01/31/21 thyroid studies -- no medications/issues currently, under surveillance by PCP Moderate obstructive sleep apnea (Acute) CPAP Pulmonary nodules (Acute) Restless legs syndrome (Acute) Patient History Medical History Hypomagnesemia Infection due to parainfluenza virus 3 Atrial flutter with rapid ventricular response Anxiety Depression Type 2 diabetes mellitus NIDDM GERD (gastroesophageal reflux disease) Hyperlipidemia Hypomagnesemia Ambulatory dysfunction Elevated brain natriuretic peptide (BNP) level Enterovirus infection Rhinovirus infection Cough Shortness of breath Recurrent falls Mild cognitive disorder CAD (coronary atherosclerotic disease) Hypertension Asthma Pericardial effusion PAD (peripheral artery disease) Hypomagnesemia CR (acute kidney injury) Meningioma Pseudoaneurysm of left femoral artery Left groin mass Abdominal distension Diaphoresis Chest discomfort Dyspnea on exertion Abnormal thyroid blood test Cough Close exposure to 2019-nCoV Conjunctivitis Close exposure to 2019-nCoV Cough productive of purulent sputum History of COVID-19 Dx 05/2020 (treated inpatient at [facility]) Asthma Well controlled Closed fracture of right distal fibula Thyroid nodule Osteoporosis Surgical History Status post placement of cardiac pacemaker Hx of cardiac cath 06/05/2023 H/O laminectomy (~1991) cervical laminectomy. full rom S/P right knee arthroscopy History of esophagogastroduodenoscopy (EGD) History of colonoscopy History of cholecystectomy History of corneal transplant R/L Family History Father , age 82 of heart disease. Diabetes Heart disease Hemangioma Glaucoma Asthma Hypertension Mother , age 78 of a "massive" stroke Stroke Other No family history of adverse response to anesthesia Social History Smoking Status: Former smoker Tobacco Type: Cigarettes Age Started Using Tobacco: 14; Age Quit Using Tobacco: 41; packs per day: 0.5; Second Hand Exposure: No; Do You Dip or Chew Tobacco: No; Hx Alcohol Use: No Hx Substance Use: No Preferred Language: Rwandan Communication Ability: Effective Visual Impairment: No Limitations Hearing Ability: Normal Precision Lens Generator Required: No Beliefs That Will Affect Care: None marital status: Current Living Situation: Spouse current occupational status: retired 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 Alert. HEENT: Anicteric sclera. Neck: No JVD. Cardiac: Irregularly irregular. Normal S1-S2. 1/6 systolic ejection murmur. No rubs or gallops. Pulmonary: Clear to auscultation bilaterally without wheezes, rales, or rhonchi. Abdomen: Soft, nontender, nondistended, with normoactive bowel sounds. No bruits noted. Extremities: 2+ radial pulses bilaterally. No edema or cyanosis. Results & Data Vital Signs (Past 12 Hours) Vital Signs Temp Pulse Pulse Pulse Pulse Pulse Resp 04/07/25 16:09 37.2 C 102 H 18 04/07/25 14:23 75 04/07/25 13:25 118 H 18 04/07/25 11:53 36.9 C 105 H 18 04/07/25 11:18 125 H 119 H 118 H 04/07/25 07:58 36.5 C 116 H 17 04/07/25 07:45 04/07/25 07:33 81 16 04/07/25 07:30 117 H 04/07/25 04:24 36.6 C 103 H 18 Resp Resp Resp BP Pulse Ox Pulse Ox Pulse Ox 04/07/25 16:09 118/74 92 04/07/25 14:23 04/07/25 13:25 93 04/07/25 11:53 133/78 92 04/07/25 11:18 22 24 18 94 87 L 04/07/25 07:58 135/96 93 04/07/25 07:45 04/07/25 07:33 93 04/07/25 07:30 04/07/25 04:24 132/88 91 Pulse Ox O2 Del Method O2 Flow Rate O2 Flow Rate 04/07/25 16:09 Nasal Cannula 2 04/07/25 14:23 04/07/25 13:25 Nasal Cannula 2 04/07/25 11:53 Nasal Cannula 2 04/07/25 11:18 87 L 2 04/07/25 07:58 Nasal Cannula 2 04/07/25 07:45 Nasal Cannula 2 04/07/25 07:33 Nasal Cannula 2 04/07/25 07:30 04/07/25 04:24 Nasal Cannula 2 Laboratory Results Laboratory Results - last 24 hr 04/06/25 04/07/25 04/07/25 19:54 07:22 07:34 WBC 9.61 RBC 3.64 L Hgb 10.9 L Hct 33.9 L MCV 93.1 MCH 29.9 MCHC 32.2 RDW Std Deviation 51.1 H RDW Coeff of Ambreen 14.8 H Plt Count 521 H MPV 9.3 L Sodium 136 Potassium 3.8 Chloride 101 Carbon Dioxide 29 Anion Gap 6 BUN 12 Creatinine 0.67 Est Cr Clr Drug Dosing 59.8 eGFR 89.41 BUN/Creatinine Ratio 17.9 Glucose 145 H POC Glucose 125 H 149 H Calcium 9.5 B-Natriuretic Peptide 04/07/25 04/07/25 11:30 16:07 WBC RBC Hgb Hct MCV MCH MCHC RDW Std Deviation RDW Coeff of Ambreen Plt Count MPV Sodium Potassium Chloride Carbon Dioxide Anion Gap BUN Creatinine Est Cr Clr Drug Dosing eGFR BUN/Creatinine Ratio Glucose POC Glucose 189 H 107 H Calcium B-Natriuretic Peptide 1158 H Diagnostic Findings Labs reviewed and notable for: Normal potassium, stable renal function, mild anemia normal TSH, normal transaminase levels. Elevated BNP. History and physical report reviewed. Event monitor, echo, and pacemaker implantation report reviewed. CT head report 04/03/2025: No acute intracranial abnormality. Chest x-ray 04/03/2025: Right basilar densities favor atelectasis per radiology. Bilateral increased bronchovascular markings and interstitial thickening per radiology. Telemetry personally reviewed: Atrial fibrillation throughout mostly tachycardic however heart rates seem improved today. Medications Administered Current Inpatient Medications Acetaminophen (Acetaminophen 325 Mg Tab) 650 mg PO Q4H PRN PRN Reason: Pain or Fever Stop: 05/03/25 18:08 Last Admin: 04/05/25 04:07 Dose: 650 mg Amoxicillin/Clavulanate Potassium (Amoxicillin/Clavulanate 875 Mg Tab) 1 tab PO BIDM [facility]; Protocol Stop: 04/12/25 16:59 Apixaban (Apixaban 5 Mg Tablet) 5 mg PO BID [facility] Stop: 05/03/25 20:59 Last Admin: 04/07/25 08:43 Dose: 5 mg Bupropion HCl (Bupropion Xl 300 Mg Tabcr) 300 mg PO QAM [facility] Stop: 05/04/25 08:59 Last Admin: 04/07/25 08:43 Dose: 300 mg Clopidogrel Bisulfate (Clopidogrel Bisulfate 75 Mg Tab) 75 mg PO DAILY [facility] Stop: 05/04/25 08:59 Last Admin: 04/07/25 08:43 Dose: 75 mg Dextrose (Dextrose 50% 50 Ml Syringe) 25 - 50 ml IV UD PRN; Protocol PRN Reason: Hypoglycemia Protocol Stop: 05/03/25 18:08 Diltiazem HCl (Diltiazem Hcl 240 Mg Capcr) 240 mg PO DAILY [facility] Stop: 05/04/25 08:59 Last Admin: 04/07/25 08:43 Dose: 240 mg Donepezil HCl (Donepezil Hcl 5 Mg Tab) 5 mg PO DAILY [facility] Stop: 05/04/25 08:59 Last Admin: 04/07/25 08:43 Dose: 5 mg Doxycycline Hyclate (Doxycycline Hyclate 100 Mg Cap) 100 mg PO Q12H [facility] Stop: 04/10/25 18:59 Last Admin: 04/07/25 08:47 Dose: 100 mg Glucagon (Glucagon For Inj 1 Mg Vial) 1 mg SQ UD PRN; Protocol PRN Reason: Hypoglycemia Protocol Stop: 05/03/25 18:08 Glucose (Glucose 40% Gel 15 Gm Tube) 15 - 30 gm PO UD PRN; Protocol PRN Reason: Hypoglycemia Protocol Stop: 05/03/25 18:08 Glucose (Glucose 10 Tab/Tube) 4 - 8 tab PO UD PRN; Protocol PRN Reason: Hypoglycemia Protocol Stop: 05/03/25 18:08 Guaifenesin (Guaifenesin 600 Mg Tabcr) 1,200 mg PO Q12 [facility] Stop: 05/03/25 20:59 Last Admin: 04/07/25 08:42 Dose: 1,200 mg Insulin Aspart (Insulin Aspart Per Unit Charge) 0 units SC ACHS [facility] Stop: 05/03/25 18:08 Last Admin: 04/07/25 12:08 Dose: 2 units Isosorbide Mononitrate (Isosorbide [place] Extended Rel 30 Mg Tabcr) 30 mg PO QAM [facility] Stop: 05/04/25 08:59 Last Admin: 04/07/25 08:42 Dose: 30 mg Levalbuterol HCl (Levalbuterol 1.25 Mg/3 Ml Neb) 1.25 mg NEB Q6R [facility] Stop: 05/03/25 20:14 Last Admin: 04/07/25 13:25 Dose: 1.25 mg Levothyroxine Sodium (Levothyroxine Sodium 50 Mcg Tablet) 50 mcg PO DAILYBB [facility] Stop: 05/04/25 06:29 Last Admin: 04/07/25 06:11 Dose: 50 mcg Lorazepam (Lorazepam 0.5 Mg Tab) 0.5 mg PO TID PRN PRN Reason: anxiety or restless legs Stop: 05/03/25 18:08 Magnesium Oxide (Magnesium Oxide 400 Mg Tab) 400 mg PO DAILY [facility] Stop: 05/04/25 08:59 Last Admin: 04/07/25 08:43 Dose: 400 mg Metoprolol Succinate (Metoprolol Succ 50mg Ext Rel Tab) 150 mg PO BID [facility] Stop: 05/03/25 20:59 Last Admin: 04/07/25 08:43 Dose: 150 mg Metoprolol Tartrate (Metoprolol Tartrate 1 Mg/Ml Vial) 2.5 mg IV Q4H PRN PRN Reason: sustained HR>120 Stop: 05/04/25 03:14 Last Admin: 04/05/25 00:34 Dose: 2.5 mg Miscellaneous (Carbohydrates For Hypoglycemia ) 15 - 30 gm PO UD PRN PRN Reason: Hypoglycemia Protocol Stop: 05/03/25 18:08 Montelukast Sodium (Montelukast Sodium 10 Mg Tablet) 10 mg PO QPM [facility] Stop: 05/03/25 20:59 Last Admin: 04/06/25 20:01 Dose: 10 mg Nitroglycerin (Nitroglycerin Sl 0.4 Mg/Tab Tab) 0.4 mg SL Q5M PRN PRN Reason: Chest Pain Stop: 05/03/25 18:08 Ondansetron HCl (Ondansetron Inj 2 Mg/Ml 2 Ml Vial) 4 mg IV Q6H PRN PRN Reason: Nausea Stop: 05/03/25 18:08 Pantoprazole Sodium (Pantoprazole 40 Mg Tab) 40 mg PO QAM [facility] Stop: 05/04/25 08:59 Last Admin: 04/07/25 08:43 Dose: 40 mg Pramipexole Dihydrochloride (Pramipexole Dihydrochlo 0.25 Mg Tab) 0.25 mg PO QPM [facility] Stop: 05/03/25 20:59 Last Admin: 04/06/25 20:02 Dose: 0.25 mg Rosuvastatin Calcium (Rosuvastatin Calcium 20 Mg Tab) 40 mg PO DAILY [facility] Stop: 05/04/25 08:59 Last Admin: 04/07/25 08:43 Dose: 40 mg Venlafaxine HCl (Venlafaxine Hcl Xr 150 Mg Capxr) 150 mg PO HS [facility] Stop: 05/03/25 20:59 Last Admin: 04/06/25 20:02 Dose: 150 mg PG Care Time/CCT Total # of Minutes Spent Total Time Spent with Patient: Total time spent is greater than 50% in coordination of care (as documented) at patient's floor/unit and/or counseling patient: Coding Level of Care Code 05896 INT INP/OBS CARE 3/75MIN Diagnoses Atrial fibrillation with rapid ventricular response I48.91 Anticoagulant long-term use Z79.01 S/P coronary artery stent placement Z95.5 CAD (coronary atherosclerotic disease) I25.10 Hypertension I10
[2025-04-07] MEDS: AMOXICILLIN/CLAVULANATE 875 MG TAB PO SCH (16:52)
[2025-04-07] MEDS ORDERED: AMOXICILLIN/CLAVULANATE 500 MG TAB PO SCH (17:00)
[2025-04-08] MEDS: guaiFENesin/DEXTROM SYRUP 200MG/20MG 10ML UDC PO PRN (03:58)
[2025-04-08] MEDS: dilTIAZem HCL 180 MG CAPCR PO SCH (10:59)
--- NOTE | 2025-04-08 13:52 | Cardiology Progress Note ---
Date of Service April 08, 2025 Assessment & Plan (1) Atrial fibrillation with rapid ventricular response: (2) Anticoagulant long-term use: (3) S/P coronary artery stent placement: (4) CAD (coronary atherosclerotic disease): (5) Hypertension: Plan ASSESSMENT/PLAN: 1. Atrial fibrillation with rapid ventricular response: Likely permanent A-fib. Reports feeling worn out/fatigued with elevated heart rates but otherwise seems asymptomatic. First dose of increased diltiazem to 360 mg daily was 04/08/2025. Continue metoprolol 150 mg twice daily. Discussed possible AV martha ablation with patient, daughter, and EP on 04/07/2025. In the past, EP has felt that maintaining sinus rhythm is unlikely. A-fib was not controlled with amiodarone. If heart rates are uncontrollable with further titration of diltiazem, consider AV martha ablation. Patient agreeable. Continue anticoagulation for stroke risk reduction. Monitor for bleeding. 2. CAD s/p RCA PCI x 2 (and atherectomy): Continue Plavix 75 mg daily while on Eliquis 5 mg twice daily. Has had GI intolerance to aspirin in the past and feels much better with Plavix. If Plavix needs to be held for procedure, would use aspirin 81 mg once daily in its place throughout the perioperative period. Recommend antiplatelet therapy without interruption indefinitely. Continue high intensity statin therapy, nitrate therapy, calcium channel hanna. 911 for angina that does not resolve within 5 minutes of nitroglycerin. 3. Dyslipidemia: LDL well-controlled. Continue rosuvastatin 40 mg daily. LDL was not at goal with atorvastatin. Mediterranean diet. Regular cardiovascular exercise. 4. Hypertension: Blood pressure well-controlled. No changes made today. 5. Pneumonia: Recently hospitalized for parainfluenza virus per hospitalist service. Plan per hospitalist. 6. Disposition: Follow-up with electrophysiology in the outpatient setting. Patient care communicated with primary hospitalist service. Dr. Baig plans to arrange for AV martha ablation in the outpatient setting if she is discharged soon. I will be away from the hospital after 5 PM today. Please call on-call facialist with questions or concerns. Cardiology will otherwise sign off for now. Admission and Anticipated Discharge Date Admission Date: April 03, 2025 Subjective Patient was seen this morning. Her breathing has improved. She denies chest pain, syncope, near syncope, palpitations, or edema. Her increased dose of diltiazem was first given this morning shortly before her visit. She was unaccompanied. Physical Exam Physical Exam: Gen.: No acute distress. Alert. HEENT: Anicteric sclera. Neck: No JVD. Cardiac: Irregularly irregular. Normal S1-S2. 1/6 systolic ejection murmur. No rubs or gallops. Pulmonary: Clear to auscultation bilaterally without wheezes, rales, or rhonchi. Abdomen: Soft, nontender, nondistended, with normoactive bowel sounds. No bruits noted. Extremities: 2+ radial pulses bilaterally. No edema. No cyanosis. Results & Data Vital Signs (Past 12 Hours) Vital Signs Temp Pulse Resp BP Pulse Ox O2 Del Method O2 Flow Rate 04/08/25 12:47 82 18 94 Nasal Cannula 2 04/08/25 10:16 36.8 C 95 H 17 113/76 93 Nasal Cannula 2 04/08/25 07:16 36.6 C 105 H 18 134/90 92 Nasal Cannula 2 04/08/25 07:05 65 16 93 Nasal Cannula 2 04/08/25 03:48 36.7 C 110 H 15 129/87 90 Nasal Cannula 2 Laboratory Results Laboratory Results - last 24 hr 04/07/25 04/07/25 04/08/25 16:07 20:21 07:14 POC Glucose 107 H 193 H 156 H 04/08/25 11:24 POC Glucose 141 H Diagnostic Findings Telemetry personally reviewed: Atrial fibrillation with mostly rapid ventricular response. Medications Administered Current Inpatient Medications Acetaminophen (Acetaminophen 325 Mg Tab) 650 mg PO Q4H PRN PRN Reason: Pain or Fever Stop: 05/03/25 18:08 Last Admin: 04/05/25 04:07 Dose: 650 mg Amoxicillin/Clavulanate Potassium (Amoxicillin/Clavulanate 875 Mg Tab) 1 tab PO BIDM [facility]; Protocol Stop: 04/12/25 16:59 Last Admin: 04/08/25 11:00 Dose: 1 tab Apixaban (Apixaban 5 Mg Tablet) 5 mg PO BID [facility] Stop: 05/03/25 20:59 Last Admin: 04/08/25 09:08 Dose: 5 mg Bupropion HCl (Bupropion Xl 300 Mg Tabcr) 300 mg PO QAM DONTE Stop: 05/04/25 08:59 Last Admin: 04/08/25 09:07 Dose: 300 mg Clopidogrel Bisulfate (Clopidogrel Bisulfate 75 Mg Tab) 75 mg PO DAILY DONTE Stop: 05/04/25 08:59 Last Admin: 04/08/25 09:09 Dose: 75 mg Dextrose (Dextrose 50% 50 Ml Syringe) 25 - 50 ml IV UD PRN; Protocol PRN Reason: Hypoglycemia Protocol Stop: 05/03/25 18:08 Diltiazem HCl (Diltiazem Hcl 180 Mg Capcr) 360 mg PO DAILY DONTE Stop: 05/08/25 08:59 Last Admin: 04/08/25 10:59 Dose: 360 mg Donepezil HCl (Donepezil Hcl 5 Mg Tab) 5 mg PO DAILY DONTE Stop: 05/04/25 08:59 Last Admin: 04/08/25 09:09 Dose: 5 mg Doxycycline Hyclate (Doxycycline Hyclate 100 Mg Cap) 100 mg PO Q12H DONTE Stop: 04/10/25 18:59 Last Admin: 04/08/25 09:08 Dose: 100 mg Glucagon (Glucagon For Inj 1 Mg Vial) 1 mg SQ UD PRN; Protocol PRN Reason: Hypoglycemia Protocol Stop: 05/03/25 18:08 Glucose (Glucose 40% Gel 15 Gm Tube) 15 - 30 gm PO UD PRN; Protocol PRN Reason: Hypoglycemia Protocol Stop: 05/03/25 18:08 Glucose (Glucose 10 Tab/Tube) 4 - 8 tab PO UD PRN; Protocol PRN Reason: Hypoglycemia Protocol Stop: 05/03/25 18:08 Guaifenesin (Guaifenesin 600 Mg Tabcr) 1,200 mg PO Q12 DONTE Stop: 05/03/25 20:59 Last Admin: 04/08/25 09:08 Dose: 1,200 mg Guaifenesin/Dextromethorphan (Guaifenesin/Dextrom Syrup 200mg/20mg 10ml Udc) 10 ml PO Q6H PRN PRN Reason: Cough Stop: 05/08/25 03:13 Last Admin: 04/08/25 09:07 Dose: 10 ml Insulin Aspart (Insulin Aspart Per Unit Charge) 0 units SC ACHS DONTE Stop: 05/03/25 18:08 Last Admin: 04/08/25 11:57 Dose: Not Given Isosorbide Mononitrate (Isosorbide [place] Extended Rel 30 Mg Tabcr) 30 mg PO QAM [facility] Stop: 05/04/25 08:59 Last Admin: 04/08/25 09:09 Dose: 30 mg Levalbuterol HCl (Levalbuterol 1.25 Mg/3 Ml Neb) 1.25 mg NEB Q6R [facility] Stop: 05/03/25 20:14 Last Admin: 04/08/25 12:47 Dose: 1.25 mg Levothyroxine Sodium (Levothyroxine Sodium 50 Mcg Tablet) 50 mcg PO DAILYBB [facility] Stop: 05/04/25 06:29 Last Admin: 04/08/25 06:13 Dose: 50 mcg Lorazepam (Lorazepam 0.5 Mg Tab) 0.5 mg PO TID PRN PRN Reason: anxiety or restless legs Stop: 05/03/25 18:08 Magnesium Oxide (Magnesium Oxide 400 Mg Tab) 400 mg PO DAILY [facility] Stop: 05/04/25 08:59 Last Admin: 04/08/25 09:09 Dose: 400 mg Metoprolol Succinate (Metoprolol Succ 50mg Ext Rel Tab) 150 mg PO BID [facility] Stop: 05/03/25 20:59 Last Admin: 04/08/25 09:08 Dose: 150 mg Metoprolol Tartrate (Metoprolol Tartrate 1 Mg/Ml Vial) 2.5 mg IV Q4H PRN PRN Reason: sustained HR>120 Stop: 05/04/25 03:14 Last Admin: 04/05/25 00:34 Dose: 2.5 mg Miscellaneous (Carbohydrates For Hypoglycemia ) 15 - 30 gm PO UD PRN PRN Reason: Hypoglycemia Protocol Stop: 05/03/25 18:08 Montelukast Sodium (Montelukast Sodium 10 Mg Tablet) 10 mg PO QPM [facility] Stop: 05/03/25 20:59 Last Admin: 04/07/25 20:18 Dose: 10 mg Nitroglycerin (Nitroglycerin Sl 0.4 Mg/Tab Tab) 0.4 mg SL Q5M PRN PRN Reason: Chest Pain Stop: 05/03/25 18:08 Ondansetron HCl (Ondansetron Inj 2 Mg/Ml 2 Ml Vial) 4 mg IV Q6H PRN PRN Reason: Nausea Stop: 05/03/25 18:08 Pantoprazole Sodium (Pantoprazole 40 Mg Tab) 40 mg PO QAM DONTE Stop: 05/04/25 08:59 Last Admin: 04/08/25 09:10 Dose: 40 mg Pramipexole Dihydrochloride (Pramipexole Dihydrochlo 0.25 Mg Tab) 0.25 mg PO QPM DONTE Stop: 05/03/25 20:59 Last Admin: 04/07/25 20:18 Dose: 0.25 mg Rosuvastatin Calcium (Rosuvastatin Calcium 20 Mg Tab) 40 mg PO DAILY DONTE Stop: 05/04/25 08:59 Last Admin: 04/08/25 09:07 Dose: 40 mg Venlafaxine HCl (Venlafaxine Hcl Xr 150 Mg Capxr) 150 mg PO HS DONTE Stop: 05/03/25 20:59 Last Admin: 04/07/25 20:18 Dose: 150 mg PG Care Time/CCT Total # of Minutes Spent Total Time Spent with Patient: Total time spent is greater than 50% in coordination of care (as documented) at patient's floor/unit and/or counseling patient: Coding Level of Care Code 68154 SUB INP/OBS CARE 3/50MIN Diagnoses Atrial fibrillation with rapid ventricular response I48.91 Anticoagulant long-term use Z79.01 S/P coronary artery stent placement Z95.5 CAD (coronary atherosclerotic disease) I25.10 Hypertension I10
--- NOTE | 2025-04-08 14:02 | Hospitalist Progress Note ---
Date of Service April 08, 2025 Assessment & Plan (1) Pneumonia: Plan: -recent hospitalization for parainfluenza virus -on cefepime/doxycycline -robert De-escalated cefepime to ceftriaxone Switched to p.o. Augmentin and p.o. doxycycline Two-step test completed. Patient will need 2 L of oxygen upon discharge Interestingly, noted that the chest x-ray on admission showed pulmonary congestion and not an opacity. Also noted the patient was given a dose of Lasix with significant improvement. Today patient appears euvolemic. Will hold off on further diuretics (2) Atrial fibrillation with rapid ventricular response: Plan: -on metoprolol and diltiazem Noted that the heart rate has been uncontrolled Cardiology consulted. Increased her dose of diltiazem to 360 mg. Patient got her first dose of the higher dose this morning. Asked the patient to walk to see if the heart rate goes up with ambulation. Plan to discharge tomorrow -apixaban (3) Moderate obstructive sleep apnea: Plan: -CPA Q (4) Type 2 diabetes mellitus: Plan: -RISS Plan CODE STATUS: DNR/DNI Disposition: Likely discharge 04/09 Admission and Anticipated Discharge Date Admission Date: April 03, 2025 Subjective Patient feels well overall. Denies chest pain or shortness of breath. Denies ever having urinary symptoms Review of Systems Review of Systems: All systems reviewed & are unremarkable except as noted in Subjective Physical Exam Physical Exam: General: Awake, conversant Heart: S1, S2/regular rate and rhythm, no murmur rubs or gallops Lungs: Clear to auscultation bilaterally. Normal effort Abdomen: Soft/nontender/nondistended. No hepatosplenomegaly Extremities: No clubbing/cyanosis. No edema Behavior: Appropriate, cooperative Results & Data Results & Data Vital Signs (Past 12 Hours) Vital Signs Temp Pulse Resp BP Pulse Ox O2 Del Method O2 Flow Rate 04/08/25 12:47 82 18 94 Nasal Cannula 2 04/08/25 10:16 36.8 C 95 H 17 113/76 93 Nasal Cannula 2 04/08/25 07:16 36.6 C 105 H 18 134/90 92 Nasal Cannula 2 04/08/25 07:05 65 16 93 Nasal Cannula 2 04/08/25 03:48 36.7 C 110 H 15 129/87 90 Nasal Cannula 2 Laboratory Results Abnormal lab results 04/07/25 04/07/25 04/08/25 Range/Units 16:07 20:21 07:14 POC Glucose 107 H 193 H 156 H (70-99) mg/dl 04/08/25 Range/Units 11:24 POC Glucose 141 H (70-99) mg/dl PG Care Time/CCT Total # of Minutes Spent Total Time Spent with Patient: Total time spent is greater than 50% in coordination of care (as documented) at patient's floor/unit and/or counseling patient: Coding Level of Care Code 41994 SUB INP/OBS CARE 2/35MIN Diagnoses Pneumonia J18.9 Atrial fibrillation with rapid ventricular response I48.91 Moderate obstructive sleep apnea G47.33 Type 2 diabetes mellitus E11.9
[2025-04-08 20:02] VITALS: RESP 18
[2025-04-09 08:07] VITALS: TEMP 98.1; O2SAT 91
[2025-04-09 08:40] VITALS: BP 134/73; PULSE 94
--- NOTE | 2025-04-09 10:07 | Discharge Summary ---
Date of Service April 09, 2025 Admission HPI Per Admitting Provider 71-year-old female was readmitted to our facility after being discharged April 01. At that time she was in the hospital with parainfluenza infection and atrial fibrillation rapid ventricular response. Up titration of metoprolol. Patient however had a fall today while walking through her home she did not sustain any significant injuries but she is found to be newly diagnosed hypoxemic. There is a suggestion of possible right lower lobe infiltrate on chest x-ray with patient is being admitted for healthcare associated pneumonia. Patient states she has never formally seen a repairer evaporator but has a history of long standing asthma she has been a distant smoker. She chronically takes Singulair and Trelegy inhaler and has as needed albuterol managed by her primary care physician. She states that her mucus production is changes now with green and yellow she is been coughing up mucus more often when with her previous parainfluenza she had not. She denies any dysphagia or coughing when eating. She says she has been compliant with her home CPAP. With regard to cardiovascular status she has had no recent chest pain gain of body weight or lower extremity swelling. She has no orthopnea. Principal Diagnosis Pneumonia versus pulmonary congestion from acute diastolic congestive heart failure Acute maxillary sinusitis Atrial fibrillation with rapid ventricular response Discharge Exam General: Awake, conversant Heart: S1, S2/regular rate and rhythm, no murmur rubs or gallops Lungs: Clear to auscultation bilaterally. Normal effort Abdomen: Soft/nontender/nondistended. No hepatosplenomegaly Extremities: No clubbing/cyanosis. No edema Behavior: Appropriate, cooperative Discharge Data Allergies Allergy/AdvReac Type Severity Reaction Status Date / Time sulfamethoxazole Allergy Intermediate Rash Verified 03/29/25 16:09 [From Bactrim] trimethoprim [From Bactrim] Allergy Intermediate Rash Verified 03/29/25 16:09 codeine AdvReac Intermediate Vomiting & Verified 03/29/25 16:09 hallucinations Consultations 04/03/25 15:44 ED Decision to Admit Stat 04/07/25 14:41 Consult Cardiology Routine Ordered Studies Chest X-Ray 04/03/25 12:41 EXAM: XR chest 1V portable CLINICAL HISTORY: Sepsis TECHNIQUE: An X-ray image of the chest is obtained in AP projection. COMPARISON: 03/29/2025. FINDINGS: Pulmonary Parenchyma: Redemonstration of the bilateral increased bronchovascular markings as well as interstitial thickening in keeping with mild intersitial pulmonary edema. Right basilar densities favor atelectasis. No evidence of pleural effusion or pleural thickening. Heart and Mediastinum: Cardiomegaly.Stable. No mediastinal widening or masses. No hilar or mediastinal lymphadenopathy. Pacemaker is noted. unchanged. Bony Thorax: Multiple old right-sided rib fractures are incidentally noted. Stable. Soft Tissues: Soft tissues overlying the chest wall are unremarkable. IMPRESSION: 1. Cardiomegaly with picture of mild interstitial pulmonary edema.stable. 2. Right basilar densities favor atelectasis. Stable. Electronically signed by Jesus Worthington 04-03-2025 2:[address] 04/03/25 12:50 EXAM: CT cervical spine without CLINICAL HISTORY: Respiratory virus, feeling worse, generalized weakness TECHNIQUE: Contiguous axial images were obtained through the cervical spine without the use of intravenous contrast. Sagittal and coronal reformations are supplied. PRIORS: 03/10/2025 FINDINGS: Moderate osseous demineralization noted. Lordotic straightening present, unchanged. Mild anterolisthesis of C2 on C3 present, unchanged. Mastoid air cells are well-pneumatized. No acute fracture or dislocation. Moderate facet hypertrophic changes present at C3-C4. Moderate loss of intervertebral disc height with uncovertebral hypertrophic changes and anterior bridging osteophytes present at C3-C4 through C6-C7. Mild bilateral osteophytic neural foraminal stenosis noted diffusely. Lung apices are unremarkable. IMPRESSION: 1. No CT evidence of an acute osseous abnormality. 2. Moderate osseous demineralization with lordotic straightening and degenerative changes noted above. Electronically signed by Yasemin Nevarez 04-03-2025 2:[address] 04/03/25 12:50 EXAMINATION: Head CT without CLINICAL HISTORY: Upper respiratory infection, feeling worse, generalized weakness PRIORS: 29 March 2025 TECHNIQUE: Contiguous axial images were obtained through the head without the use of intravenous contrast. Sagittal and coronal reformations are supplied. FINDINGS: Motion artifact degrades image quality. Age appropriate parenchymal volume is noted. Davidson-white differentiation is preserved. No edema or midline shift. Nonaggressive appearing calcification again noted in the left frontal lobe measuring approximately 10 mm, possibly calcified meningioma. No intra-axial or extra-axial hemorrhage. Ventricles are normal in size and configuration. Brainstem and cerebellum have a normal appearance. Calvarium unremarkable. Total opacification of the left maxillary sinus, appearing in the interval mild mucosal thickening of the left ethmoid and frontal sinuses. Mastoid air cells are well-pneumatized. Globes are intact. No retrobulbar abnormality. IMPRESSION: 1. No CT evidence of an acute intracranial abnormality. 2. Acute left maxillary sinusitis, appearing in the interval. ACT 112: Positive. There are findings on this examination that require communication between the performing entity and the patient following Patient Test Result Information Act ([place] ACT 112) guidelines. Electronically signed by Yasemin Nevarez 04-03-2025 2:03 PM 04/03/25 12:50 CT cervical spine wo con Stat CT head/brain wo con Stat Hospital Course (1) Pneumonia: -recent hospitalization for parainfluenza virus -on cefepime/doxycycline -robert De-escalated cefepime to ceftriaxone Switched to p.o. Augmentin and p.o. doxycycline Two-step test completed. Patient is needing 2 L of oxygen upon discharge Interestingly, noted that the chest x-ray on admission showed pulmonary congestion and not an opacity. Also noted the patient was given a dose of Lasix with significant improvement. Today patient appears euvolemic. Will hold off on further diuretics (2) Atrial fibrillation with rapid ventricular response: -on metoprolol and diltiazem Noted that the heart rate has been uncontrolled Cardiology consulted. Increased her dose of diltiazem to 360 mg. Heart rate better controlled today -apixaban (3) Moderate obstructive sleep apnea: -CPA QHS (4) Type 2 diabetes mellitus: -RISS Plan Discharge to home today Total Time Total Time Spent Total Time Spent (In Minutes): 35 Discharge Plan Discharge Items Patient Disposition: Home - Self-Care Reason For Visit: ACUTE RESPIRATORY FAILURE WITH HYPOXIA,PNEUMONIA Discharge Diagnosis: Pneumonia versus pulmonary congestion from acute diastolic congestive heart failure Acute maxillary sinusitis Atrial fibrillation with rapid ventricular response Condition on Discharge: Good Activity: Resume your previous activity Non-emergency contact: Primary Care Provider Call non-emergency contact if: you have any medication questions and your symptoms worsen Follow-up/Referrals: Rico Arevalo MD [Primary Care Provider] - 04/15/25 2:00 pm Greg Baig MD [Physician] - Diet: Heart Healthy Addtl Attending Provider Instructions: Advised to follow-up with PCP in 1 week - Advised to follow-up with EP cardiology in 1 week Pending Studies at Discharge: No Stand-Alone Forms: My [facility] Medications and DC Order Prescriptions: New amoxicillin-pot clavulanate 875-125 mg tablet 1 tab PO BID 1 Days Qty: 2 0RF doxycycline monohydrate 100 mg capsule 100 mg PO BID 1 Days Qty: 2 0RF diltiazem HCl 360 mg capsule,extended release 24hr 360 mg PO DAILY 30 Days Qty: 30 0RF Continued albuterol sulfate [Ventolin HFA] 90 mcg/actuation HFA aerosol inhaler 2 puff INH QID PRN (Reason: shortness of breath or wheezing) Qty: 18 5RF Rx Instructions: Please substitute least expensive albuterol inhaler. Myrbetriq 50 mg tablet extended release 24 hr 50 mg PO QAM Qty: 90 3RF rosuvastatin [Crestor] 40 mg tablet 40 mg PO DAILY Qty: 90 3RF bupropion HCl 300 mg tablet extended release 24 hr 300 mg PO QAM Qty: 90 3RF metformin 500 mg tablet 500 mg PO BID Qty: 200 3RF Trelegy Ellipta 200-62.5-25 mcg blister with device 1 inh inhalation DAILY Qty: 180 3RF Rx Instructions: rinse mouth and gargle after usage losartan 50 mg tablet 50 mg PO DAILY Qty: 90 3RF ibandronate 150 mg tablet 150 mg PO MONTHLY Qty: 3 3RF Rx Instructions: as directed. montelukast [Singulair] 10 mg tablet 10 mg PO QPM Qty: 90 3RF (DME) Accu-Chek Sandy Plus test strp Strip See Rx Instructions .Route Qty: 100 3RF Rx Instructions: check once daily As directed DX:E11.9 (DME) OneTouch Ultra Test Strip See Rx Instructions .Route Qty: 100 4RF Rx Instructions: onetouch ultra in vitro strip; check sugars once a day; DX E11.9 Eliquis 5 mg tablet 5 mg PO BID Qty: 180 3RF lorazepam 0.5 mg tablet 0.5 mg PO TID PRN (Reason: anxiety or restless legs) Qty: 90 0RF Patient Comments: Per daughter she takes every night at bedtime donepezil 5 mg tablet 5 mg PO DAILY Qty: 30 11RF Rx Instructions: take with breakfast fenofibrate 54 mg tablet 54 mg PO QAM Qty: 90 3RF pantoprazole [Protonix] 40 mg tablet,delayed release (DR/EC) 40 mg PO QAM Qty: 90 3RF nitroglycerin 0.4 mg tablet, sublingual 0.4 mg sublingual Q5M PRN (Reason: chest pain) Qty: 25 0RF Rx Instructions: do not exceed 3 doses per episode clopidogrel 75 mg tablet 75 mg PO DAILY (DME) Auto Titrating CPAP Misc See Rx Instructions .Route Qty: 1 0RF Rx Instructions: 4- 15 pressure ascorbic acid (vitamin C) 500 mg capsule 500 mg PO DAILY pramipexole 0.25 mg tablet 0.25 mg PO QPM Qty: 60 5RF Rx Instructions: administer 1 hour before leg restlessness starts ferrous sulfate 325 mg (65 mg iron) tablet 325 mg PO DAILY Qty: 90 1RF loratadine [Allergy Relief (loratadine)] 10 mg tablet 10 mg PO QAM venlafaxine 150 mg capsule,extended release 24hr 150 mg PO HS levothyroxine 50 mcg tablet 50 mcg PO DAILYBB Rx Instructions: Take first thing in the morning about 30 minutes prior to other medications and food. mupirocin 2 % ointment 1 applic topical BID PRN (Reason: SKIN IRRITATIONS) metoprolol succinate 50 mg Tablet Extended Release 24 Hr 150 mg PO BID Qty: 60 0RF benzonatate 100 mg Capsule 100 mg PO Q6 PRN (Reason: cough) Qty: 30 0RF guaifenesin [Mucinex] 600 mg Tablet Extended Release 12hr 600 mg PO Q12 Qty: 12 0RF vitamin B complex Tablet 1 tab PO QAM isosorbide mononitrate 30 mg tablet extended release 24 hr 30 mg PO QAM magnesium oxide 400 mg magnesium Tablet 400 mg PO DAILY Discontinued diltiazem HCl 240 mg capsule,extended release 24hr 240 mg PO DAILY Qty: 30 11RF Discharge Orders: Discharge Order (Routine); Ordered 04/09/25 Ordered By: Leila Wilhelm/Other Patient Handouts: Managing Type 2 Diabetes Admission Data Admit Date/Time: 04/03/25 16:16 Attending Provider: Leila Higgins Admit Provider: Covaleski,Brodie E. Primary Care Provider: Rico Arevalo Other Providers: Brodie Gordillo; Alejandro,Home Health; Zohaib Singh Other Interventions: Discharge Summary Assessment (RN) Last Done: 04/09/25 08:39
== END 2025-04-09 10:35 | disposition home health service (06) | DRG 193 ==
LOC: ED 12:15 → SUATTDRO 16:16 → 2S 16:16

== ENCOUNTER 2025-06-29 12:02 | Observation (INO) ==
[2025-06-29 12:45] LABS: Hematocrit (blood only) 34.6 % (37.0-47.0); Hemoglobin 11.1 g/dl (12.0-16.0); Immature Granulocytes # (auto) 0.04 K/uL (0.01-0.20); Immature Granulocytes % (auto) 0.5 %; Mean Corpuscular Hemoglobin 31.4 pg (25.0-34.0); Mean Corpuscular Volume 98.0 fL (80.0-100.0); Platelet Count 373 K/uL (130-400); RDW Standard Deviation 53.3 fL (36.4-46.3); Red Blood Count 3.53 M/uL (4.20-5.40); White Blood Count 8.16 K/ul (4.8-10.8)
--- NOTE | 2025-06-29 12:48 | XRay Report ---
XR chest 1V portable CLINICAL HISTORY: SOB COMPARISON STUDY: 05/04/2025 FINDINGS: Stable pacemaker. Stable cardiomegaly with pulmonary vascular congestion. Stable pulmonary interstitial prominence. No consolidation or pleural effusion. No pneumothorax. IMPRESSION: CHF. ACT 112: Negative or not required by law. Electronically signed by: Pranav Stephenson M.D. 06/29/2025 12:47 PM
[2025-06-29 13:09] LABS: Alanine Aminotransferase 7.0 U/L (7-52); Albumin Globulin Ratio 1.2 (0.9-2); Alkaline Phosphatase 36.0 U/L (34-104); Anion Gap 6.0 (3-11); Bilirubin,Total 0.4 mg/dl (0.2-1.0); Blood Urea Nitrogen 21.0 mg/dl (6-23); Calcium 10.1 mg/dl (8.6-10.3); Carbon Dioxide 30.0 mmol/L (21-32); Chloride 104.0 mmol/L (98-107); Creatinine Clr Calc Pharmacy 41.4 ml/min; Globulin 3.4 gm/dl (2.5-4.0); Glucose 136.0 mg/dl (70-99(Fasting)); Potassium 3.8 mmol/L (3.5-5.1); Sodium 140.0 mmol/L (136-145); Total Protein 7.6 gm/dl (6.0-8.3)
--- NOTE | 2025-06-29 13:29 | CT Scan Report ---
CT SCAN OF THE BRAIN WITHOUT IV CONTRAST CLINICAL HISTORY: Fall with head injury. COMPARISON STUDY: MRI of the brain March 11, 2025. Head CT April 03, 2025. TECHNIQUE: Unenhanced axial CT scan of the brain was performed from the vertex to the skull base. A dose lowering technique was utilized adhering to the principles of ALARA. CT DOSE: 625.8 mGy.cm FINDINGS: Brain parenchyma: No acute intracranial hemorrhage, midline shift or mass effect is present. Davidson-whi te matter differentiation is preserved. There are no extra-axial fluid collections. There are no find ings to suggest acute dural sinus thrombosis or acute territorial infarct. A 1.3 cm densely calcified lesion overlying the left frontal lobe is unchanged. This is benign. Mild white matter hypodensities are unchanged and favor small vessel disease. Ventricles, sulci, cisterns: There is no hydrocephalus. The basal cisterns are patent. Calvarium: There are no calvarial fractures. Sinuses and mastoids: The visualized paranasal sinuses are clear. The mastoid air cells are well pneu matized. Orbits: The bony orbits are grossly intact. IMPRESSION: 1. No acute intracranial findings. 2. No calvarial fractures. ACT 112: Negative or not required by law. Electronically signed by: Gorge Penny M.D. 06/29/2025 1:28 PM
--- NOTE | 2025-06-29 13:54 | Emergency Department Note ---
Impression & Plan Acute confusion, Fall, Closed head injury ED Provider Note NAME: PRANAY HYMAN AGE: 79 SEX: F : 1945 ARRIVES VIA: Ambulance INFORMANT: Patient, ED PROVIDER(S): Dafne Ferrer MD CHIEF COMPLAINT: Fall, confusion HPI: This is a 79-year-old female presenting after a fall. Patient says she has felt somewhat weak and unwell for the past few days. She notes that yesterday she had a ground-level fall. She reports seeing her head. Since then having a headache. Patient notes that earlier this morning she began having difficulty forming words very transiently. She had no facial droop or slurred speech. She reports transient left arm pain that is since resolved. Currently she reports just headache. ROS: See above HPI for pertinent positives & negatives. A total of 10 systems reviewed and were otherwise negative. PAST MEDICAL HISTORY: See Below PAST SURGICAL HISTORY: See Below FAMILY HISTORY: See Below SOCIAL HISTORY: See Below HOME MEDICATIONS: See Below ALLERGIES: See Below VITALS: See Below PHYSICAL EXAMINATION: General: resting comfortably in no acute distress Head: Normocephalic and atraumatic Eyes: Normal inspection, extraocular muscles intact Ear, nose, throat: Normal external exam Neck: Normal range of motion Respiratory: lungs clear to auscultation bilaterally Cardiovascular: Regular rate/rhythm, no murmur GI: soft, nontender, no guarding or rebound Extremities: nontender, moves all extremities Neuro: The patient awake and alert, appropriately conversive, no focal deficits, symmetric faces, NIH 0, symmetric motor function, no drift Skin: Warm, dry, and intact MEDICAL DECISION MAKING: This is a 79-year-old female presenting after a fall for headache. Patient episode of confusion/dizziness after this fall as well. Consider intracranial hemorrhage, stroke, concussion. Clinically patient has no neurologic deficits at this time. Will do screening EKG, troponin, head CT, chest x-ray. - ECG independently interpreted by me with ventricularly paced rhythm at a rate of 87, QTc [address] segment elevations consistent with STEMI criteria - Chest x-ray reveals signs of cardiomegaly with CHF. - Bloodwork is reviewed showing no significant leukocytosis, anemia, electrolyte or creatinine abnormality. Negative troponin - Pacemaker interrogated, device rep calls with no new acute events noted per patient permanent atrial fibrillation. No tachydysrhythmia events noted. - Patient is with her family member and friend. They state that she is still fairly confused and not her usual baseline. They concerned about sending her home as she does live alone. -Patient herself states she feels somewhat confused. - Will admit the patient for inpatient hospitalization due to confusion, fall Differential diagnosis: Intracranial hemorrhage, stroke, concussion, UTI Independent History obtained from: Family member/friend Diagnostics interpreted by me: ECG: See above Cardiac Monitoring: An order was placed for continuous cardiac monitoring. The monitor shows a rate of 88 with ventricular paced rhythm. Past Med/Surg History Problem List (Updated 06/30/25 @ 14:17 by Dafne Ferrer MD) Closed head injury (Acute) Fall (Acute) Acute confusion (Acute) Recurrent falls Concussion UTI (urinary tract infection) Rib pain on right side Right shoulder pain Hypothyroidism Hypomagnesemia (Acute) Cerebral atrophy Essential tremor Diabetic peripheral neuropathy Hypomagnesemia (Acute) (HFpEF) heart failure with preserved ejection fraction Carotid stenosis, right Chronic cerebral ischemia TIA (transient ischemic attack) Anticoagulant long-term use SSS (sick sinus syndrome) Mitral regurgitation Sinus bradycardia Paroxysmal atrial fibrillation with RVR Iron deficiency anemia Lung nodules S/P coronary artery stent placement Memory loss Paroxysmal atrial fibrillation Osteoporosis Vitamin D deficiency (Acute) Back pain, chronic (Acute) Allergic rhinitis (Acute) Osteoarthritis of right knee Microalbuminuria Multinodular goiter Graves disease (Acute) Euthyroid per 01/31/21 thyroid studies -- no medications/issues currently, under surveillance by PCP Moderate obstructive sleep apnea (Acute) CPAP Pulmonary nodules (Acute) Restless legs syndrome (Acute) Medical History (Updated 06/30/25 @ 14:17 by Dafne Ferrer MD) Fracture of proximal phalanx of digit of left hand Hypomagnesemia Infection due to parainfluenza virus 3 Atrial flutter with rapid ventricular response Anxiety Depression Type 2 diabetes mellitus NIDDM GERD (gastroesophageal reflux disease) Hyperlipidemia Hypomagnesemia Ambulatory dysfunction Elevated brain natriuretic peptide (BNP) level Enterovirus infection Rhinovirus infection Cough Shortness of breath Mild cognitive disorder CAD (coronary atherosclerotic disease) Hypertension Asthma Pericardial effusion PAD (peripheral artery disease) Hypomagnesemia CR (acute kidney injury) Meningioma Pseudoaneurysm of left femoral artery Left groin mass Abdominal distension Diaphoresis Chest discomfort Dyspnea on exertion Abnormal thyroid blood test Cough Close exposure to 2018-nCoV Conjunctivitis Close exposure to 2019-nCoV Cough productive of purulent sputum History of COVID-19 Dx 05/2020 (treated inpatient at [facility]) Asthma Well controlled Closed fracture of right distal fibula Thyroid nodule Osteoporosis Surgical History Status post placement of cardiac pacemaker Hx of cardiac cath 06/05/2023 H/O laminectomy (~1991) cervical laminectomy. full rom S/P right knee arthroscopy History of esophagogastroduodenoscopy (EGD) History of colonoscopy History of cholecystectomy History of corneal transplant R/L Family History Father Diabetes Heart disease Hemangioma Glaucoma Asthma Hypertension Mother Stroke Other No family history of adverse response to anesthesia Social History Smoking Status: Never smoker Tobacco Type: Cigarettes Age Started Using Tobacco: 14; Age Quit Using Tobacco: 41; packs per day: 0.5; Second Hand Exposure: No; Do You Dip or Chew Tobacco: No; Hx Alcohol Use: No Hx Substance Use: No Preferred Language: Welsh Communication Ability: Effective Visual Impairment: No Limitations Hearing Ability: Normal Director Of [employer]work Services Required: No Beliefs That Will Affect Care: None marital status: Current Living Situation: Spouse current occupational status: retired 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 Feels Safe at Home: Yes Dental Care, Regularly: Yes Seatbelt Use: always Assistive Devices: Cane and Walker Allergies Allergies Allergy/AdvReac Type Severity Reaction Status Date / Time sulfamethoxazole Allergy Intermediate Rash Verified 06/29/25 16:02 [From Bactrim] trimethoprim [From Bactrim] Allergy Intermediate Rash Verified 06/29/25 16:02 codeine AdvReac Intermediate Vomiting & Verified 06/29/25 16:02 hallucinations Home Meds Home Medications Medication Instructions Recorded Confirmed loratadine 10 mg tablet (Allergy 10 mg PO QAM 06/29/20 06/29/25 Relief (loratadine)) clopidogrel 75 mg tablet 75 mg PO DAILY 06/09/23 06/29/25 isosorbide mononitrate 30 mg 30 mg PO QAM 01/07/25 06/29/25 tablet,extended release 24 hr vitamin B complex 1 tab PO QAM 01/07/25 06/29/25 ascorbic acid (vitamin C) 500 mg 500 mg PO DAILY 01/14/25 06/29/25 capsule mupirocin 2 % topical ointment 1 applic topical BID PRN SKIN 03/29/25 06/29/25 IRRITATIONS venlafaxine 150 mg 150 mg PO HS 03/29/25 06/29/25 capsule,extended release 24 hr donepezil 5 mg tablet 5 mg PO DAILY 05/04/25 06/29/25 Previous Rx's Medication Instructions Recorded nitroglycerin 0.4 mg sublingual 0.4 mg sublingual Q5M PRN chest 04/29/23 tablet pain #25 tabs albuterol sulfate 90 mcg/actuation 2 puff inhalation QID PRN 01/27/24 aerosol inhaler (Ventolin HFA) shortness of breath or wheezing #18 grams rosuvastatin 40 mg tablet (Crestor) 40 mg PO DAILY #90 tabs 07/13/24 bupropion HCl 300 mg 24 hr tablet, 300 mg PO QAM #90 tabs 07/19/24 extended release metformin 500 mg tablet 500 mg PO BID #200 tabs 08/04/24 fluticasone fur. 200 mcg-umeclid 1 inh inhalation DAILY #180 ea 08/31/24 62.5 mcg-vilant 25 mcg inhalat.powder (Trelegy Ellipta) losartan 50 mg tablet 50 mg PO DAILY #90 tabs 09/14/24 ibandronate 150 mg tablet 150 mg PO MONTHLY #3 tabs 09/24/24 montelukast 10 mg tablet 10 mg PO QPM #90 tabs 10/27/24 (Singulair) Auto Titrating CPAP #1 ea 11/15/24 blood sugar diagnostic (Accu-Chek #100 ea 12/04/24 Sandy Plus test strips) blood sugar diagnostic (OneTouch #100 ea 12/28/24 Ultra Test strips) ferrous sulfate 325 mg (65 mg 325 mg PO DAILY #90 tabs 01/14/25 iron) tablet pramipexole 0.25 mg tablet 0.25 mg PO QPM #60 tabs 01/14/25 apixaban 5 mg tablet (Eliquis) 5 mg PO BID #180 tabs 02/25/25 fenofibrate 54 mg tablet 54 mg PO QAM #90 tabs 03/18/25 pantoprazole 40 mg tablet,delayed 40 mg PO QAM #90 tabs 03/18/25 release (Protonix) guaifenesin 600 mg tablet, 600 mg PO Q12 #12 tabs 04/01/25 extended release 12 hr (Mucinex) furosemide 20 mg tablet 20 mg PO QAM PRN weight gain #30 04/15/25 tabs Portable Oxygen #1 ea 05/11/25 diltiazem HCl 360 mg 360 mg PO DAILY 3 months #90 caps 05/16/25 capsule,extended release 24 hr metoprolol succinate 50 mg 150 mg (3 x 50 mg) PO BID #180 tabs 05/16/25 tablet,extended release 24 hr mirabegron 50 mg tablet,extended 50 mg PO QAM #90 tabs 05/19/25 release 24 hr (Myrbetriq) magnesium oxide 400 mg PO TID #90 tabs 05/21/25 levothyroxine 50 mcg tablet 50 mcg PO DAILYBB #90 tabs 06/02/25 lorazepam 0.5 mg tablet 0.5 mg PO TID PRN anxiety or 06/20/25 restless legs #90 tabs Results & Data (ED) Vital Signs Vital Signs - 24 hr 06/29/25 15:00 Pulse Rate [Apical] 86 Respiratory Rate 18 Blood Pressure [Right Arm] 120/78 Blood Pressure Mean [Right Arm] 92 Pulse Oximetry 90 Oxygen Delivery Method Room Air Laboratory Data 06/29/25 12:14 06/29/25 12:14 Lab Results 06/29/25 Range/Units 12:14 WBC 8.16 (4.8-10.8) K/ul RBC 3.53 L (4.20-5.40) M/uL Hgb 11.1 L (12.0-16.0) g/dl Hct 34.6 L (37.0-47.0) % MCV 98.0 (80.0-100.0) fL MCH 31.4 (25.0-34.0) pg MCHC 32.1 (32.0-36.0) g/dL RDW Std Deviation 53.3 H (36.4-46.3) fL RDW Coeff of Ambreen 14.9 H (11.5-14.5) % Plt Count 373 (130-400) K/uL MPV 9.3 L (9.4-12.4) fL Immature Gran % (Auto) 0.5 % Neut % (Auto) 78.4 % Lymph % (Auto) 12.4 % Yell % (Auto) 6.1 % Eos % (Auto) 2.1 % Baso % (Auto) 0.5 % Neut # (Auto) 6.40 (1.40-6.50) K/uL Lymph # (Auto) 1.01 L (1.20-3.40) K/uL Yell # (Auto) 0.50 (0.11-0.59) K/uL Eos # (Auto) 0.17 (0.00-0.50) K/uL Baso # (Auto) 0.04 (0.00-0.20) K/uL Immature Gran # (Auto) 0.04 (0.01-0.20) K/uL Sodium 140 (136-145) mmol/L Potassium 3.8 (3.5-5.1) mmol/L Chloride 104 (98-107) mmol/L Carbon Dioxide 30 (21-32) mmol/L Anion Gap 6 (3-11) BUN 21 (6-23) mg/dl Creatinine 1.01 (0.6-1.2) mg/dl Est Cr Clr Drug Dosing 41.4 ml/min eGFR 56.98 BUN/Creatinine Ratio 20.8 H (10-20) Glucose 136 H (70-99(Fasting)) mg/dl Calcium 10.1 (8.6-10.3) mg/dl Total Bilirubin 0.4 (0.2-1.0) mg/dl AST 14 (13-39) U/L ALT 7 (7-52) U/L Alkaline Phosphatase 36 (34-104) U/L Troponin I High Sens 7.7 (0-14) pg/ml Total Protein 7.6 (6.0-8.3) gm/dl Albumin 4.2 (3.4-5.0) gm/dl Globulin 3.4 (2.5-4.0) gm/dl Albumin/Globulin Ratio 1.2 (0.9-2) Administered Medications Apixaban (Apixaban 5 Mg Tablet) 5 mg PO BID DONTE Stop: 07/29/25 20:59 Last Admin: 06/30/25 07:43 Dose: 5 mg Documented By: Admin: 06/29/25 21:34 Dose: 5 mg Documented By: MACI Bupropion HCl (Bupropion Xl 300 Mg Tabcr) 300 mg PO QAM [facility] Stop: 07/30/25 08:59 Last Admin: 06/30/25 07:41 Dose: 300 mg Documented By: NICOLE Clopidogrel Bisulfate (Clopidogrel Bisulfate 75 Mg Tab) 75 mg PO DAILY [facility] Stop: 07/30/25 08:59 Last Admin: 06/30/25 07:42 Dose: 75 mg Documented By: NICOLE Diltiazem HCl (Diltiazem Hcl 180 Mg Capcr) 360 mg PO QAM [facility] Stop: 07/30/25 08:59 Last Admin: 06/30/25 08:45 Dose: 360 mg Documented By: NICOLE Donepezil HCl (Donepezil Hcl 5 Mg Tab) 5 mg PO DAILY [facility] Stop: 07/30/25 08:59 Last Admin: 06/30/25 07:41 Dose: 5 mg Documented By: NICOLE Fluticasone Furoate (Fluticasone Furoate 200mcg 14 Puffs/Inhaler) 1 puffs INH DAILY [facility] Stop: 07/30/25 08:59 Last Admin: 06/30/25 07:40 Dose: 1 puffs Documented By: NICOLE Isosorbide Mononitrate (Isosorbide Yell Extended Rel 30 Mg Tabcr) [facility]: 07/30/25 08:59 Last Admin: 06/30/25 07:43 Dose: 30 mg Documented By: NICOLE Levothyroxine Sodium (Levothyroxine Sodium 50 Mcg Tablet) [facility]: 07/30/25 06:29 Last Admin: 06/30/25 04:18 Dose: 50 mcg Documented By: TOMMY Loratadine (Loratadine 10 Mg Tab) 10 mg PO QAM [facility] Stop: 07/30/25 08:59 Last Admin: 06/30/25 07:42 Dose: 10 mg Documented By: NICOLE Losartan Potassium (Losartan Potassium 50 Mg Tab) 50 mg PO DAILY [facility] Stop: 07/30/25 08:59 Last Admin: 06/30/25 07:42 Dose: 50 mg Documented By: NICOLE Magnesium Oxide (Magnesium Oxide 400 Mg Tab) 400 mg PO TID DONTE Stop: 07/29/25 20:59 Last Admin: 06/30/25 13:59 Dose: 400 mg Documented By: Admin: 06/30/25 07:41 Dose: 400 mg Documented By: Admin: 06/29/25 21:35 Dose: 400 mg Documented By: MACI Metoprolol Succinate (Metoprolol Succ 50mg Ext Rel Tab) 150 mg PO BID DONTE Stop: 07/29/25 20:59 Last Admin: 06/30/25 07:42 Dose: 150 mg Documented By: Admin: 06/29/25 21:34 Dose: 150 mg Documented By: MACI Miscellaneous (Fenofibrate 54 Mg Tablet - Order Awaiting Action) 1 each N/A QS [facility] Stop: 07/29/25 19:59 Last Admin: 06/30/25 14:07 Dose: Not Given Documented By: Admin: 06/30/25 07:39 Dose: Not Given Documented By: Admin: 06/30/25 00:16 Dose: Not Given Documented By: Admin: 06/29/25 21:46 Dose: Not Given Documented By: TOMMY Montelukast Sodium (Montelukast Sodium 10 Mg Tablet) 10 mg PO QPM [facility]TE Stop: 07/29/25 20:59 Last Admin: 06/29/25 21:35 Dose: 10 mg Documented By: MACI Pantoprazole Sodium (Pantoprazole 40 Mg Tab) 40 mg PO QAM [facility] Stop: 07/30/25 08:59 Last Admin: 06/30/25 07:41 Dose: 40 mg Documented By: NICOLE Pramipexole Dihydrochloride (Pramipexole Dihydrochlo 0.25 Mg Tab) 0.25 mg PO QPM [facility]TE Stop: 07/29/25 20:59 Last Admin: 06/29/25 21:37 Dose: 0.25 mg Documented By: MACI Rosuvastatin Calcium (Rosuvastatin Calcium 20 Mg Tab) 40 mg PO DAILY [facility]TE Stop: 07/30/25 08:59 Last Admin: 06/30/25 07:41 Dose: 40 mg Documented By: NICOLE Umeclidinium/Vilanterol (Umeclidinium/Vilanterol 62.5/25mcg 7 Puffs/Inhaler) 1 puffs INH DAILY [facility]TE Stop: 07/30/25 08:59 Last Admin: 06/30/25 07:40 Dose: 1 puffs Documented By: NICOLE Venlafaxine HCl (Venlafaxine Hcl Xr 75 Mg Capxr) 75 mg PO HS DONTE Stop: 07/29/25 20:59 Last Admin: 06/29/25 21:36 Dose: 75 mg Documented By: MACI Vibegron (Vibegron 75 Mg Tab) 75 mg PO QAM [facility] Stop: 07/30/25 08:59 Last Admin: 06/30/25 07:41 Dose: 75 mg Documented By: NICOLE Vitamin B Complex (Vitamin B Complex Tab) 1 tab PO QAM [facility] Stop: 07/30/25 08:59 Last Admin: 06/30/25 07:42 Dose: 1 tab Documented By: NICOLE Discontinued Medications Fluticasone Furoate (Fluticasone Furoate 200mcg 14 Puffs/Inhaler) 1 puffs INH NOW ONE Stop: 06/29/25 19:46 Last Admin: 06/29/25 21:32 Dose: 1 puffs Documented By: MACI Ceftriaxone Sodium (Rocephin) 1,000 mg in 50 mls @ 100 mls/hr IV Q24H DONTE Stop: 06/29/25 17:44 Last Infusion: 06/29/25 18:00 Dose: Infused Documented By: Admin: 06/29/25 17:30 Dose: 100 mls/hr Documented By: MACI Ioversol (Optiray 320 125ml) 115 ml IV ONCE ONE Stop: 06/29/25 16:09 Last Admin: 06/29/25 16:09 Dose: 115 ml Documented By: GUILLERMO Umeclidinium/Vilanterol (Umeclidinium/Vilanterol 62.5/25mcg 7 Puffs/Inhaler) 1 puffs INH NOW ONE Stop: 06/29/25 20:01 Last Admin: 06/29/25 21:33 Dose: 1 puffs Documented By: MACI Imaging Data Radiologist's Impression: Chest X-Ray 06/29/25 12:30 XR chest 1V portable CLINICAL HISTORY: SOB COMPARISON STUDY: 05/04/2025 FINDINGS: Stable pacemaker. Stable cardiomegaly with pulmonary vascular congestion. Stable pulmonary interstitial prominence. No consolidation or pleural effusion. No pneumothorax. IMPRESSION: CHF. ACT 112: Negative or not required by law. Electronically signed by: Pranav Stephenson M.D. 06/29/2025 12:[address] 06/29/25 12:30 CT SCAN OF THE BRAIN WITHOUT IV CONTRAST CLINICAL HISTORY: Fall with head injury. COMPARISON STUDY: MRI of the brain March 11, 2025. Head CT April 03, 2025. TECHNIQUE: Unenhanced axial CT scan of the brain was performed from the vertex to the skull base. A dose lowering technique was utilized adhering to the principles of ALARA. CT DOSE: 625.8 mGy.cm FINDINGS: Brain parenchyma: No acute intracranial hemorrhage, midline shift or mass effect is present. Davidson-white matter differentiation is preserved. There are no extra- axial fluid collections. There are no findings to suggest acute dural sinus thrombosis or acute territorial infarct. A 1.3 cm densely calcified lesion overlying the left frontal lobe is unchanged. This is benign. Mild white matter hypodensities are unchanged and favor small vessel disease. Ventricles, sulci, cisterns: There is no hydrocephalus. The basal cisterns are patent. Calvarium: There are no calvarial fractures. Sinuses and mastoids: The visualized paranasal sinuses are clear. The mastoid air cells are well pneumatized. Orbits: The bony orbits are grossly intact. IMPRESSION: 1. No acute intracranial findings. 2. No calvarial fractures. ACT 112: Negative or not required by law. Electronically signed by: Gorge Penny M.D. 06/29/2025 1:28 PM Discharge Plan Visit Data Chief Complaint: Fall ED Provider: Dafne Ferrer Discharge Problem: Acute confusion, Fall, Closed head injury Patient Disposition: Admitted As Inpatient Condition: Fair Discharge Instructions Interventions: ED Discharge Assessment Last Done: 06/29/25 22:06 Discharge Problem: Fall Qualifiers: Encounter type: initial encounter Qualified Code(s): W19.XXXA - Unspecified fall, initial encounter Closed head injury Qualifiers: Encounter type: initial encounter Qualified Code(s): S09.90XA - Unspecified injury of head, initial encounter
[2025-06-29] MEDS ORDERED: ACETAMINOPHEN 325 MG TAB PO PRN (15:54)
[2025-06-29] MEDS: OPTIRAY 320 125ml IV ONE (16:09)
--- NOTE | 2025-06-29 16:24 | History & Physical Report ---
Date of Service June 29, 2025 Assessment & Plan (1) UTI (urinary tract infection): (2) Concussion: (3) Recurrent falls: Plan Heidi James is a 79 yo woman with PMH Of A-fib, diabetes, CAD s/p stent to RRCA on May 2023, carotid stenosis, cervical laminectomy, CHF. recurrent UTI she's been having falling episode for past 4-5 months, she's was advised to use a roller walker, but unable to use it when she's get out from the shower. on 06/29, came to ED with fall, AMS, CT head negative and admitted for UTI, septic encephalopathy; pending CTA to r/o carotid stenosis and CT neck to r/o spine fracture recurrent fall UTI, septic encephalopathy volume overload on CXR hx of A-fib s/p ablation, CAD hx of carotid stenosis diabetes with neuropathy PMH of hypomagnesemia hx of PVD with left femoral artery pseudoaneursym hypothyroidism goiter recurrent fall started 3-4 months ago PT and OT, orthostatic blood pressure may need to cut down her anticholingeric. noted she's on effexor XL qHS noted she's on lorazepam 0.5mg TID UTI, septic encephalopathy c/w ceftriaxone, f/u urine culture volume overload on CXR hold off on lasix today given she's been NPO chronically medical problem hx of A-fib s/pablation , CAD s/p stent to RCA in may 2023 plavix and eliquis, noted she's on protonix metoprolol XL 50mg daily, she's cardizem 360mg daily isosorbide mononitrate 30mg ER crestor 40mg daily PVD with pseudoaneurysm, s/p thrombin injection at [facility] [place] on 06/20/2023 asthma-on singular and trelegy elliptia mood disorder, she's on lorazepam 0.5mg TID PRN for anxiety effexor 150mg ER hypomagnesemia--magnesium oxide 400mg TID hypothyroidism-50mcg daily Admission and Anticipated Discharge Date Admission Date: June 29, 2025 History of Present Illness Chief Complaint: fall episode concussion UTI, septic encephalopathy volume overload on CXR Primary Care Provider: Rico Arevalo MD Heidi James is a 79 yo woman with PMH of diabetes, neuropathy, A-fib s/p ablation, right side carotid stenosis, CAD s/p stent, pulmonary nodules. she's has cervical laminectomy in 1991, and also has right knee surgery since 4-5 months ago, she's been having recurrent falls, and was advised to used a walker on 06/29/2025, she's has a fall episode, head strike the ground, and been having confusion she presented to our ED for evaluation, ED head negative, but her friend mentioned ongoing confusion and disoriented she was admitted for UTI, septic encephalopathy she's denied any dizziness, knee giving out. no palpitation, no chest pain she was suppose to f/u with cardiology but was admitted to the hospital in the ED, her CXR concern for volume overload. she will be admitted for recurrent fall, concussion and UTI with encephalopathy Allergies Allergy/AdvReac Type Severity Reaction Status Date / Time sulfamethoxazole Allergy Intermediate Rash Verified 06/29/25 16:02 [From Bactrim] trimethoprim [From Bactrim] Allergy Intermediate Rash Verified 06/29/25 16:02 codeine AdvReac Intermediate Vomiting & Verified 06/29/25 16:02 hallucinations Home Medications Medication Instructions Recorded Confirmed Type loratadine 10 mg tablet (Allergy 10 mg PO QAM 06/29/20 06/29/25 History Relief (loratadine)) nitroglycerin 0.4 mg sublingual 0.4 mg sublingual Q5M PRN chest 04/29/23 06/29/25 Rx tablet pain #25 tabs clopidogrel 75 mg tablet 75 mg PO DAILY 06/09/23 06/29/25 History albuterol sulfate 90 mcg/actuation 2 puff inhalation QID PRN 01/27/24 06/29/25 Rx aerosol inhaler (Ventolin HFA) shortness of breath or wheezing #18 grams rosuvastatin 40 mg tablet (Crestor) 40 mg PO DAILY #90 tabs 07/13/24 06/29/25 Rx bupropion HCl 300 mg 24 hr tablet, 300 mg PO QAM #90 tabs 07/19/24 06/29/25 Rx extended release metformin 500 mg tablet 500 mg PO BID #200 tabs 08/04/24 06/29/25 Rx fluticasone fur. 200 mcg-umeclid 1 inh inhalation DAILY #180 ea 10/01/24 07/30/25 Rx 62.5 mcg-vilant 25 mcg inhalat.powder (Trelegy Ellipta) losartan 50 mg tablet 50 mg PO DAILY #90 tabs 09/14/24 06/29/25 Rx ibandronate 150 mg tablet 150 mg PO MONTHLY #3 tabs 09/24/24 06/29/25 Rx montelukast 10 mg tablet 10 mg PO QPM #90 tabs 10/27/24 06/29/25 Rx (Singulair) Auto Titrating CPAP #1 ea 11/15/24 06/07/25 Rx blood sugar diagnostic (Accu-Chek #100 ea 12/04/24 06/07/25 Rx Sandy Plus test strips) blood sugar diagnostic (OneTouch #100 ea 12/28/24 06/07/25 Rx Ultra Test strips) isosorbide mononitrate 30 mg 30 mg PO QAM 01/07/25 06/29/25 History tablet,extended release 24 hr vitamin B complex 1 tab PO QAM 01/07/25 06/29/25 History ascorbic acid (vitamin C) 500 mg 500 mg PO DAILY 01/14/25 06/29/25 History capsule ferrous sulfate 325 mg (65 mg 325 mg PO DAILY #90 tabs 01/14/25 06/29/25 Rx iron) tablet pramipexole 0.25 mg tablet 0.25 mg PO QPM #60 tabs 01/14/25 06/29/25 Rx apixaban 5 mg tablet (Eliquis) 5 mg PO BID #180 tabs 02/25/25 06/29/25 Rx fenofibrate 54 mg tablet 54 mg PO QAM #90 tabs 03/18/25 06/29/25 Rx pantoprazole 40 mg tablet,delayed 40 mg PO QAM #90 tabs 03/18/25 06/29/25 Rx release (Protonix) mupirocin 2 % topical ointment 1 applic topical BID PRN SKIN 03/29/25 06/29/25 History IRRITATIONS venlafaxine 150 mg 150 mg PO HS 03/29/25 06/29/25 History capsule,extended release 24 hr guaifenesin 600 mg tablet, 600 mg PO Q12 #12 tabs 04/01/25 06/29/25 Rx extended release 12 hr (Mucinex) furosemide 20 mg tablet 20 mg PO QAM PRN weight gain #30 04/15/25 06/29/25 Rx tabs donepezil 5 mg tablet 5 mg PO DAILY 05/04/25 06/29/25 History Portable Oxygen #1 ea 05/11/25 06/07/25 Rx diltiazem HCl 360 mg 360 mg PO DAILY 3 months #90 caps 05/16/25 06/29/25 Rx capsule,extended release 24 hr metoprolol succinate 50 mg 150 mg (3 x 50 mg) PO BID #180 tabs 05/16/25 06/29/25 Rx tablet,extended release 24 hr mirabegron 50 mg tablet,extended 50 mg PO QAM #90 tabs 05/19/25 06/29/25 Rx release 24 hr (Myrbetriq) magnesium oxide 400 mg PO TID #90 tabs 05/21/25 06/29/25 Rx levothyroxine 50 mcg tablet 50 mcg PO DAILYBB #90 tabs 06/02/25 06/29/25 Rx lorazepam 0.5 mg tablet 0.5 mg PO TID PRN anxiety or 06/20/25 06/29/25 Rx restless legs #90 tabs Past Med/Surg History Problem List (Updated 06/29/25 @ 16:23 by Rupa Fry DO) Recurrent falls Concussion UTI (urinary tract infection) Rib pain on right side Right shoulder pain Hypothyroidism Hypomagnesemia (Acute) Cerebral atrophy Essential tremor Diabetic peripheral neuropathy Hypomagnesemia (Acute) (HFpEF) heart failure with preserved ejection fraction Carotid stenosis, right Chronic cerebral ischemia TIA (transient ischemic attack) Anticoagulant long-term use SSS (sick sinus syndrome) Mitral regurgitation Sinus bradycardia Paroxysmal atrial fibrillation with RVR Iron deficiency anemia Lung nodules S/P coronary artery stent placement Memory loss Paroxysmal atrial fibrillation Osteoporosis Vitamin D deficiency (Acute) Back pain, chronic (Acute) Allergic rhinitis (Acute) Osteoarthritis of right knee Microalbuminuria Multinodular goiter Graves disease (Acute) Euthyroid per 01/31/21 thyroid studies -- no medications/issues currently, under surveillance by PCP Moderate obstructive sleep apnea (Acute) CPAP Pulmonary nodules (Acute) Restless legs syndrome (Acute) Medical History (Updated 06/29/25 @ 16:23 by Rupa Fry DO) Fracture of proximal phalanx of digit of left hand Hypomagnesemia Infection due to parainfluenza virus 3 Atrial flutter with rapid ventricular response Anxiety Depression Type 2 diabetes mellitus NIDDM GERD (gastroesophageal reflux disease) Hyperlipidemia Hypomagnesemia Ambulatory dysfunction Elevated brain natriuretic peptide (BNP) level Enterovirus infection Rhinovirus infection Cough Shortness of breath Mild cognitive disorder CAD (coronary atherosclerotic disease) Hypertension Asthma Pericardial effusion PAD (peripheral artery disease) Hypomagnesemia CR (acute kidney injury) Meningioma Pseudoaneurysm of left femoral artery Left groin mass Abdominal distension Diaphoresis Chest discomfort Dyspnea on exertion Abnormal thyroid blood test Cough Close exposure to 2019-nCoV Conjunctivitis Close exposure to 2019-nCoV Cough productive of purulent sputum History of COVID-19 Dx 05/2020 (treated inpatient at [facility]) Asthma Well controlled Closed fracture of right distal fibula Thyroid nodule Osteoporosis Surgical History Status post placement of cardiac pacemaker Hx of cardiac cath 06/05/2023 H/O laminectomy (~1991) cervical laminectomy. full rom S/P right knee arthroscopy History of esophagogastroduodenoscopy (EGD) History of colonoscopy History of cholecystectomy History of corneal transplant R/L Family History Father Diabetes Heart disease Hemangioma Glaucoma Asthma Hypertension Mother Stroke Other No family history of adverse response to anesthesia Social History Smoking Status: Never smoker Tobacco Type: Cigarettes Age Started Using Tobacco: 14; Age Quit Using Tobacco: 41; packs per day: 0.5; Second Hand Exposure: No; Do You Dip or Chew Tobacco: No; Hx Alcohol Use: No Hx Substance Use: No Preferred Language: Georgian Communication Ability: Effective Visual Impairment: No Limitations Hearing Ability: Normal Sales Department Supervisor Required: No Beliefs That Will Affect Care: None marital status: Current Living Situation: Spouse current occupational status: retired 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 Feels Safe at Home: Yes Dental Care, Regularly: Yes Seatbelt Use: always Assistive Devices: Cane, Glasses and Oxygen - Continuous Review of Systems Review of Systems: Constitutional: + for weight loss of 20--25 lbs Cardiovascular: No Chest Pain, No SOB, No PND, No Dyspnea on Exertion, No Orthopnea, No Claudication, No Edema, No Palpitations Respiratory: No Cough, No Sputum, No Wheezing, No Smoke Exposure, No Dyspnea no hemoptysis Gastrointestinal: No Nausea, No Vomiting, No Diarrhea, No Constipation, No Pain, No Heartburn, No Anorexia, No Dysphagia, No Hematochezia, No Melena Musculoskeletal: No Arthralgias, No Myalgias, No Joint Swelling, No Joint Stiffness, No Back Pain, No Neck Pain, No Injury History Neuro: + for recurrent fall; + for tremor; no numbness, no weakness; denied dizziness, no lightheadness Psych: No Anxiety/Panic, No Depression, No Insomnia, No Personality Changes, No Delusions, No Rumination, No SI/HI/AH/VH, No Social Issues, No Memory Changes, No Violence/Abuse Hx., No Eating Concerns Endocrine: No Polyuria, No Polydipsia, No Temperature Intolerance Physical Exam Physical Exam: VITALS: Reviewed. WEIGHT/BMI reviewed. GEN: Healthy appearing, well-developed, NAD. PSYCH: Good Judgment. AOx3. Normal memory, mood, and affect. HEENT -Head: NC/AT; -Eyes: PERRL, EOMI. No discharge or redn ess; -Ears: External ears are normal. Normal TMs. NECK: no carotid bruit CV: RRR, no m/r/g. + for pacemaker LUNGS: CTAB, no w/r/c. ABD: Soft, NT/ND, NBS, no masses or organomegaly. : N/A MSK: No deformities, Normal gait. EXT: No clubbing, cyanosis, or edema. NEURO: no pronator drift; + for tremor; AAOx3; slow mentation; 5/5 strength in upper and lower extremity Results & Data Results & Data Vital Signs (Past 12 Hours) Vital Signs Temp Pulse Pulse Resp BP BP Pulse Ox 06/29/25 14:00 36.8 C 89 18 109/79 92 06/29/25 13:00 36.9 C 85 18 118/82 95 06/29/25 12:29 86 06/29/25 12:25 94 06/29/25 12:24 37.4 C 87 18 98/72 L 89 L O2 Del Method O2 Flow Rate 06/29/25 14:00 Room Air 06/29/25 13:00 Nasal Cannula 06/29/25 12:29 06/29/25 12:25 Nasal Cannula 2 06/29/25 12:24 Room Air Laboratory Results Laboratory Results - last 72 hr 06/29/25 12:14 WBC 8.16 RBC 3.53 L Hgb 11.1 L Hct 34.6 L MCV 98.0 MCH 31.4 MCHC 32.1 RDW Std Deviation 53.3 H RDW Coeff of Ambreen 14.9 H Plt Count 373 MPV 9.3 L Immature Gran % (Auto) 0.5 Neut % (Auto) 78.4 Lymph % (Auto) 12.4 Loup % (Auto) 6.1 Eos % (Auto) 2.1 Baso % (Auto) 0.5 Neut # (Auto) 6.40 Lymph # (Auto) 1.01 L Loup # (Auto) 0.50 Eos # (Auto) 0.17 Baso # (Auto) 0.04 Immature Gran # (Auto) 0.04 Sodium 140 Potassium 3.8 Chloride 104 Carbon Dioxide 30 Anion Gap 6 BUN 21 Creatinine 1.01 Est Cr Clr Drug Dosing 41.4 eGFR 56.98 BUN/Creatinine Ratio 20.8 H Glucose 136 H Calcium 10.1 Total Bilirubin 0.4 AST 14 ALT 7 Alkaline Phosphatase 36 Troponin I High Sens 7.7 Total Protein 7.6 Albumin 4.2 Globulin 3.4 Albumin/Globulin Ratio 1.2 Diagnostic Findings Chest X-Ray 06/29/25 12:30 XR chest 1V portable CLINICAL HISTORY: SOB COMPARISON STUDY: 05/04/2025 FINDINGS: Stable pacemaker. Stable cardiomegaly with pulmonary vascular congestion. Stable pulmonary interstitial prominence. No consolidation or pleural effusion. No pneumothorax. IMPRESSION: CHF. ACT 112: Negative or not required by law. Electronically signed by: Pranav Stephenson M.D. 06/29/2025 12:[address] 06/29/25 12:30 CT SCAN OF THE BRAIN WITHOUT IV CONTRAST CLINICAL HISTORY: Fall with head injury. COMPARISON STUDY: MRI of the brain March 11, 2025. Head CT April 03, 2025. TECHNIQUE: Unenhanced axial CT scan of the brain was performed from the vertex to the skull base. A dose lowering technique was utilized adhering to the principles of ALARA. CT DOSE: 625.8 mGy.cm FINDINGS: Brain parenchyma: No acute intracranial hemorrhage, midline shift or mass effect is present. Davidson-white matter differentiation is preserved. There are no extra- axial fluid collections. There are no findings to suggest acute dural sinus thrombosis or acute territorial infarct. A 1.3 cm densely calcified lesion overlying the left frontal lobe is unchanged. This is benign. Mild white matter hypodensities are unchanged and favor small vessel disease. Ventricles, sulci, cisterns: There is no hydrocephalus. The basal cisterns are patent. Calvarium: There are no calvarial fractures. Sinuses and mastoids: The visualized paranasal sinuses are clear. The mastoid air cells are well pneumatized. Orbits: The bony orbits are grossly intact. IMPRESSION: 1. No acute intracranial findings. 2. No calvarial fractures. ACT 112: Negative or not required by law. Electronically signed by: Gorge Penny M.D. 06/29/2025 1:28 PM PG Care Time/CCT Total # of Minutes Spent Total Time Spent with Patient: Total time spent is greater than 50% in coordination of care (as documented) at patient's floor/unit and/or counseling patient: Coding Level of Care Code 91142 INT INP/OBS CARE 2/55MIN Diagnoses UTI (urinary tract infection) N39.0 Concussion S06.0XAA Recurrent falls R29.6
--- NOTE | 2025-06-29 16:57 | CT Scan Report ---
Clinical history: Confusion Technique: Axial computed tomography images were obtained of the brain after the administration of intravenous contrast according to the CT angiogram protocol Comparison is made to the prior CTA dated 03/29/2025 Findings: There is calcified plaque within the cavernous and supraclinoid segments of the internal carotid arteries bilaterally A calcified structure is again seen adjacent to the left frontal lobe that could represent a meningioma No definite stenosis or aneurysm is seen of the anterior, middle, or posterior cerebral artery circulations. The visualized vertebral arteries and the basilar artery appear unremarkable There is some sphenoid sinus fluid Impression: 1. No definite stenosis or aneurysm of the intracranial arteries 2. Sphenoid sinusitis Electronically signed by Urban Thompson 06-29-2025 4:57 PM
--- NOTE | 2025-06-29 17:07 | CT Scan Report ---
Clinical history: Confusion Technique: Axial computed tomography images were obtained of the neck after the administration of intravenous contrast according to the CT angiogram protocol Comparison is made to the prior CT dated 03/29/2025 Findings: No stenosis is seen of the common carotid arteries bilaterally. Again seen is an approximately 60% diameter stenosis of the right carotid bulb. There is a mild approximately 30% stenosis of the left carotid bulb. The remainder of the internal carotid arteries appear patent bilaterally. There is a severe stenosis of the origin of the right external carotid artery The vertebral arteries are patent bilaterally with no significant stenosis seen. The visualized thoracic aorta appears unremarkable There is multilevel degenerative disc disease and osteoarthritis of the cervical spine. Impression: 1. Unchanged 60% stenosis of the right carotid bulb 2. Mild, 30% stenosis of the left carotid bulb 3. Severe stenosis of the proximal right ECA Electronically signed by Urban Thompson 06-29-2025 5:06 PM
[2025-06-29] MEDS: cefTRIAXone SODIUM 1,000 MG/50 ML BAG IV SCH (17:30)
[2025-06-29] MEDS ORDERED: MUPIROCIN 2% OINT 22 GM TUBE TOP PRN (19:17)
[2025-06-29] MEDS ORDERED: LORazepam 0.5 MG TAB PO PRN (19:17)
[2025-06-29] MEDS ORDERED: NON-FORMULARY MEDICATION (Fluticasone-Umeclidin-Vilanter [Trelegy Ellipta] 200-62.5-25 mcg INH SCH (19:17)
[2025-06-29] MEDS ORDERED: ALBUTEROL HFA 8 GM INHALER INH PRN (19:17)
[2025-06-29 20:50] LABS: Appearance Urine Cloudy (Clear); Bacteria Urine Automated None Seen (None Seen); Epithelial Cell Urine Auto 0-2 /hpf (0-2); Glucose Urine UA Negative (Negative); WBC Urine Automated 0-5 /hpf (0-5)
[2025-06-29] MEDS ORDERED: NON-FORMULARY MEDICATION (Auto Titrating Cpap misc) SCH (21:00)
[2025-06-29] MEDS: FLUTICASONE FUROATE 200MCG 14 PUFFS/INHALER INH ONE (21:32)
[2025-06-29] MEDS: UMECLIDINIUM/VILANTEROL 62.5/25MCG 7 PUFFS/INHALER INH ONE (21:33)
[2025-06-29] MEDS: APIXABAN 5 MG TABLET PO SCH (21:34)
[2025-06-29] MEDS: METOPROLOL SUCC 50MG EXT REL TAB PO SCH (21:34)
[2025-06-29] MEDS: MAGNESIUM OXIDE 400 MG TAB PO SCH (21:35)
[2025-06-29] MEDS: MONTELUKAST SODIUM 10 MG TABLET PO SCH (21:35)
[2025-06-29] MEDS: VENLAFAXINE HCL XR 75 MG CAPXR PO SCH (21:36)
[2025-06-29] MEDS: PRAMIPEXOLE DIHYDROCHLO 0.25 MG TAB PO SCH (21:37)
[2025-06-30] MEDS: LEVOTHYROXINE SODIUM 50 MCG TABLET PO SCH (04:18)
[2025-06-30] MEDS: FLUTICASONE FUROATE 200MCG 14 PUFFS/INHALER INH SCH (07:40)
[2025-06-30] MEDS: UMECLIDINIUM/VILANTEROL 62.5/25MCG 7 PUFFS/INHALER INH SCH (07:40)
[2025-06-30] MEDS: DONEPEZIL HCL 5 MG TAB PO SCH (07:41)
[2025-06-30] MEDS: ROSUVASTATIN CALCIUM 20 MG TAB PO SCH (07:41)
[2025-06-30] MEDS: VIBEGRON 75 MG TAB PO SCH (07:41)
[2025-06-30] MEDS: VITAMIN B COMPLEX TAB PO SCH (07:42)
[2025-06-30] MEDS: CLOPIDOGREL BISULFATE 75 MG TAB PO SCH (07:42)
[2025-06-30] MEDS: LORATADINE 10 MG TAB PO SCH (07:42)
[2025-06-30] MEDS: LOSARTAN POTASSIUM 50 MG TAB PO SCH (07:42)
[2025-06-30] MEDS: ISOSORBIDE MONO EXTENDED REL 30 MG TABCR PO SCH (07:43)
[2025-06-30] MEDS ORDERED: cefTRIAXone SODIUM 1,000 MG/50 ML BAG IV SCH (09:00)
--- NOTE | 2025-06-30 13:10 | Hospitalist Progress Note ---
Date of Service June 30, 2025 Assessment & Plan (1) UTI (urinary tract infection): (2) Concussion: (3) Recurrent falls: Plan Heidi James is a 79 yo woman with PMH Of A-fib, diabetes, CAD s/p stent to RRCA on May 2023, carotid stenosis, cervical laminectomy, CHF. recurrent UTI she's been having falling episode for past 4-5 months, she's was advised to use a roller walker, but unable to use it when she's get out from the shower. on 06/29, came to ED with fall, AMS, CT head negative and admitted for UTI, septic encephalopathy; pending CTA to r/o carotid stenosis and CT neck to r/o spine fracture recurrent fall UTI, septic encephalopathy volume overload on CXR hx of A-fib s/p ablation, CAD hx of carotid stenosis (60% stenosis of carotid bulbs, severe stenosis of proximal right ECA) diabetes with neuropathy PMH of hypomagnesemia hx of PVD with left femoral artery pseudoaneursym hypothyroidism goiter rstles leg syndrome recurrent fall started 3-4 months ago OT recommended reacute rehab PT and OT, orthostatic blood pressure spoke with son, Javy, plan for switching her effexor back to lexapro noted she's on lorazepam 0.5mg TID deposition STR UTI, septic encephalopathy c/w ceftriaxone, f/u urine culture severe stenosis of proximal right ECA need f/u with vascular surgery memory impairment started since jan 2025. no alcohol use f/u on b12, iron panel avoid anticholingeric volume overload on CXR hold off on lasix today given she's been NPO chronically medical problem hx of A-fib s/pablation , CAD s/p stent to RCA in may 2023 plavix and eliquis, noted she's on protonix metoprolol XL 50mg daily, she's cardizem 360mg daily isosorbide mononitrate 30mg ER crestor 40mg daily PVD with pseudoaneurysm, s/p thrombin injection at [facility] on 06/20/2023 asthma-on singular and trelegy elliptia mood disorder, she's on lorazepam 0.5mg TID PRN for anxiety effexor 150mg ER hypomagnesemia--magnesium oxide 400mg TID hypothyroidism-50mcg daily Admission and Anticipated Discharge Date Admission Date: June 29, 2025 Subjective she still have dizziness, even with lying down OT recommended acute rehab her CTA severe stenosis of proximal right ECA spoke with her son, Javy at bedside ([phone]) agreeable for placement to rehab per son and daughter, been having memory change since jan 2025 talya f/u on b12, iron level discussed cutting down benzo and effexor dosage they will work with her PCP about switching her back from effector to lexapro Review of Systems Review of Systems: Constitutional: No Weight Change, No Fever, No Chills, No Night Sweats, No Fatigue, No Malaise Neuro: + for forgetfullness; + for dizziness; no slurred speech; no numbness + for restless leg syndrome + for recurrent fall; + for head strike Cardiovascular: No Chest Pain, No SOB, No PND, No Dyspnea on Exertion, No Orthopnea, No Claudication, No Edema, No Palpitations Respiratory: No Cough, No Sputum, No Wheezing, No Smoke Exposure, No Dyspnea Gastrointestinal: No Nausea, No Vomiting, No Diarrhea, No Constipation, No Pain, No Heartburn, No Anorexia, No Dysphagia, No Hematochezia, No Melena, No Flatulence, No Jaundice Musculoskeletal: + for hx of cervical spine disorder Psych: for anxiety disorder; + for sleep apnea Heme/Lymph: No Bruising, No Bleeding, No Transfusions History, No Lymphadenopathy Endocrine: No Polyuria, No Polydipsia, No Temperature Intolerance Physical Exam Physical Exam: VITALS: Reviewed. WEIGHT/BMI reviewed. GEN: Healthy appearing, well-developed, NAD. -Head: NC/AT; -Eyes: PERRL, EOMI. No discharge or redn ess; Neuro: AAOx3; normal finger to nose; 5/5 strength test; no slurred speech NECK: Supple, with no masses. CV: RRR, no m/r/g. LUNGS: CTAB, no w/r/c. ABD: Soft, NT/ND, NBS, no masses or organomegaly. MSK: No deformities, Normal gait. EXT: No clubbing, cyanosis, or edema. Results & Data Results & Data Vital Signs (Past 12 Hours) Vital Signs Temp Pulse Resp BP Pulse Ox Pulse Ox Pulse Ox 06/30/25 11:57 93 95 06/30/25 08:56 06/30/25 07:47 06/30/25 07:28 36.7 C 88 20 144/82 H 94 Pulse Ox O2 Del Method O2 Flow Rate O2 Flow Rate O2 Flow Rate O2 Flow Rate 06/30/25 11:57 85 L 0 2 0 06/30/25 08:56 Nasal Cannula 2 06/30/25 07:47 Nasal Cannula 2 06/30/25 07:28 Nasal Cannula [address] 06/29/25 12:30 CT SCAN OF THE BRAIN WITHOUT IV CONTRAST CLINICAL HISTORY: Fall with head injury. COMPARISON STUDY: MRI of the brain March 11, 2025. Head CT April 03, 2025. TECHNIQUE: Unenhanced axial CT scan of the brain was performed from the vertex to the skull base. A dose lowering technique was utilized adhering to the principles of ALARA. CT DOSE: 625.8 mGy.cm FINDINGS: Brain parenchyma: No acute intracranial hemorrhage, midline shift or mass effect is present. Davidson-white matter differentiation is preserved. There are no extra- axial fluid collections. There are no findings to suggest acute dural sinus thrombosis or acute territorial infarct. A 1.3 cm densely calcified lesion overlying the left frontal lobe is unchanged. This is benign. Mild white matter hypodensities are unchanged and favor small vessel disease. Ventricles, sulci, cisterns: There is no hydrocephalus. The basal cisterns are patent. Calvarium: There are no calvarial fractures. Sinuses and mastoids: The visualized paranasal sinuses are clear. The mastoid air cells are well pneumatized. Orbits: The bony orbits are grossly intact. IMPRESSION: 1. No acute intracranial findings. 2. No calvarial fractures. ACT 112: Negative or not required by law. Electronically signed by: Gorge Penny M.D. 06/29/2025 1:28 PM Head CTA 06/29/25 14:54 Clinical history: Confusion Technique: Axial computed tomography images were obtained of the brain after the administration of intravenous contrast according to the CT angiogram protocol Comparison is made to the prior CTA dated 03/29/2025 Findings: There is calcified plaque within the cavernous and supraclinoid segments of the internal carotid arteries bilaterally A calcified structure is again seen adjacent to the left frontal lobe that could represent a meningioma No definite stenosis or aneurysm is seen of the anterior, middle, or posterior cerebral artery circulations. The visualized vertebral arteries and the basilar artery appear unremarkable There is some sphenoid sinus fluid Impression: 1. No definite stenosis or aneurysm of the intracranial arteries 2. Sphenoid sinusitis Electronically signed by Urban Thompson 06-29-2025 4:57 PM Neck CTA 06/29/25 14:54 Clinical history: Confusion Technique: Axial computed tomography images were obtained of the neck after the administration of intravenous contrast according to the CT angiogram protocol Comparison is made to the prior CT dated 03/29/2025 Findings: No stenosis is seen of the common carotid arteries bilaterally. Again seen is an approximately 60% diameter stenosis of the right carotid bulb. There is a mild approximately 30% stenosis of the left carotid bulb. The remainder of the internal carotid arteries appear patent bilaterally. There is a severe stenosis of the origin of the right external carotid artery The vertebral arteries are patent bilaterally with no significant stenosis seen. The visualized thoracic aorta appears unremarkable There is multilevel degenerative disc disease and osteoarthritis of the cervical spine. Impression: 1. Unchanged 60% stenosis of the right carotid bulb 2. Mild, 30% stenosis of the left carotid bulb 3. Severe stenosis of the proximal right ECA Electronically signed by Urban Thompson 06-29-2025 5:06 PM Diagnostic Findings Laboratory Results - last 72 hr 06/29/25 06/29/25 12:14 20:23 WBC 8.16 RBC 3.53 L Hgb 11.1 L Hct 34.6 L MCV 98.0 MCH 31.4 MCHC 32.1 RDW Std Deviation 53.3 H RDW Coeff of Ambreen 14.9 H Plt Count 373 MPV 9.3 L Immature Gran % (Auto) 0.5 Neut % (Auto) 78.4 Lymph % (Auto) 12.4 [place] % (Auto) 6.1 Eos % (Auto) 2.1 Baso % (Auto) 0.5 Neut # (Auto) 6.40 Lymph # (Auto) 1.01 L [place] # (Auto) 0.50 Eos # (Auto) 0.17 Baso # (Auto) 0.04 Immature Gran # (Auto) 0.04 Sodium 140 Potassium 3.8 Chloride 104 Carbon Dioxide 30 Anion Gap 6 BUN 21 Creatinine 1.01 Est Cr Clr Drug Dosing 41.4 eGFR 56.98 BUN/Creatinine Ratio 20.8 H Glucose 136 H Calcium 10.1 Total Bilirubin 0.4 AST 14 ALT 7 Alkaline Phosphatase 36 Troponin I High Sens 7.7 Total Protein 7.6 Albumin 4.2 Globulin 3.4 Albumin/Globulin Ratio 1.2 Urine Color Yellow Urine Appearance Cloudy A Urine pH 7.5 Ur Specific [place] > 1.045 H Urine Protein Negative Urine Glucose (UA) Negative Urine Ketones Negative Urine Blood Negative Urine Nitrite Negative Urine Bilirubin Negative Urine Urobilinogen Negative Ur Leukocyte Esterase 1+ H Urine WBC (Auto) 0-5 Urine RBC (Auto) 3-5 H U Hyaline Cast (Auto) 3-5 H U Epithel Cells (Auto) 0-2 Urine Bacteria (Auto) None Seen Urine Comment Medications Administered Current Inpatient Medications Acetaminophen (Acetaminophen 325 Mg Tab) 650 mg PO Q4H PRN PRN Reason: pain/fever Stop: 07/29/25 15:53 Albuterol (Albuterol Hfa 8 Gm Inhaler) 2 puffs INH QID PRN PRN Reason: shortness of breath or wheezing Stop: 07/29/25 19:16 Apixaban (Apixaban 5 Mg Tablet) 5 mg PO BID [facility] Stop: 07/29/25 20:59 Last Admin: 06/30/25 07:43 Dose: 5 mg Bupropion HCl (Bupropion Xl 300 Mg Tabcr) 300 mg PO QAM [facility] Stop: 07/30/25 08:59 Last Admin: 06/30/25 07:41 Dose: 300 mg Clopidogrel Bisulfate (Clopidogrel Bisulfate 75 Mg Tab) 75 mg PO DAILY [facility] Stop: 07/30/25 08:59 Last Admin: 06/30/25 07:42 Dose: 75 mg Diltiazem HCl (Diltiazem Hcl 180 Mg Capcr) 360 mg PO QAM [facility] Stop: 07/30/25 08:59 Last Admin: 06/30/25 08:45 Dose: 360 mg Donepezil HCl (Donepezil Hcl 5 Mg Tab) 5 mg PO DAILY [facility] Stop: 07/30/25 08:59 Last Admin: 06/30/25 07:41 Dose: 5 mg Fluticasone Furoate (Fluticasone Furoate 200mcg 14 Puffs/Inhaler) 1 puffs INH DAILY [facility] Stop: 07/30/25 08:59 Last Admin: 06/30/25 07:40 Dose: 1 puffs Ceftriaxone Sodium (Rocephin) 1,000 mg in 50 mls @ 100 mls/hr IV Q24H [facility] Stop: 07/06/25 17:14 Isosorbide Mononitrate (Isosorbide [place] Extended Rel 30 Mg Tabcr) 30 mg PO QAM [facility] Stop: 07/30/25 08:59 Last Admin: 06/30/25 07:43 Dose: 30 mg Levothyroxine Sodium (Levothyroxine Sodium 50 Mcg Tablet) 50 mcg PO DAILYBB [facility] Stop: 07/30/25 06:29 Last Admin: 06/30/25 04:18 Dose: 50 mcg Loratadine (Loratadine 10 Mg Tab) 10 mg PO QAM [facility] Stop: 07/30/25 08:59 Last Admin: 06/30/25 07:42 Dose: 10 mg Lorazepam (Lorazepam 0.5 Mg Tab) 0.5 mg PO TID PRN PRN Reason: anxiety or restless legs Stop: 07/29/25 19:16 Losartan Potassium (Losartan Potassium 50 Mg Tab) 50 mg PO DAILY [facility] Stop: 07/30/25 08:59 Last Admin: 06/30/25 07:42 Dose: 50 mg Magnesium Oxide (Magnesium Oxide 400 Mg Tab) 400 mg PO TID [facility] Stop: 07/29/25 20:59 Last Admin: 06/30/25 07:41 Dose: 400 mg Metoprolol Succinate (Metoprolol Succ 50mg Ext Rel Tab) 150 mg PO BID [facility] Stop: 07/29/25 20:59 Last Admin: 06/30/25 07:42 Dose: 150 mg Miscellaneous (Fenofibrate 54 Mg Tablet - Order Awaiting Action) 1 each N/A QS [facility] Stop: 07/29/25 19:59 Last Admin: 06/30/25 07:39 Dose: Not Given Montelukast Sodium (Montelukast Sodium 10 Mg Tablet) 10 mg PO QPM [facility] Stop: 07/29/25 20:59 Last Admin: 06/29/25 21:35 Dose: 10 mg Mupirocin (Mupirocin 2% Oint 22 Gm Tube) 1 appln TOP BID PRN PRN Reason: SKIN IRRITATIONS Stop: 07/29/25 19:16 Pantoprazole Sodium (Pantoprazole 40 Mg Tab) 40 mg PO QAM [facility] Stop: 07/30/25 08:59 Last Admin: 06/30/25 07:41 Dose: 40 mg Pramipexole Dihydrochloride (Pramipexole Dihydrochlo 0.25 Mg Tab) 0.25 mg PO QPM [facility] Stop: 07/29/25 20:59 Last Admin: 06/29/25 21:37 Dose: 0.25 mg Rosuvastatin Calcium (Rosuvastatin Calcium 20 Mg Tab) 40 mg PO DAILY [facility] Stop: 07/30/25 08:59 Last Admin: 06/30/25 07:41 Dose: 40 mg Umeclidinium/Vilanterol (Umeclidinium/Vilanterol 62.5/25mcg 7 Puffs/Inhaler) 1 puffs INH DAILY [facility] Stop: 07/30/25 08:59 Last Admin: 06/30/25 07:40 Dose: 1 puffs Venlafaxine HCl (Venlafaxine Hcl Xr 75 Mg Capxr) 75 mg PO HS [facility] Stop: 07/29/25 20:59 Last Admin: 06/29/25 21:36 Dose: 75 mg Vibegron (Vibegron 75 Mg Tab) 75 mg PO QAM [facility] Stop: 07/30/25 08:59 Last Admin: 06/30/25 07:41 Dose: 75 mg Vitamin B Complex (Vitamin B Complex Tab) 1 tab PO QAM [facility] Stop: 07/30/25 08:59 Last Admin: 06/30/25 07:42 Dose: 1 tab PG Care Time/CCT Total # of Minutes Spent Total Time Spent with Patient: Total time spent is greater than 50% in coordination of care (as documented) at patient's floor/unit and/or counseling patient: Coding Level of Care Code 14965 SUB INP/OBS CARE 2/35MIN Diagnoses UTI (urinary tract infection) N39.0 Concussion S06.0XAA Recurrent falls R29.6 Time Spent (min) 35
[2025-06-30 13:52] LABS: Iron 52 mcg/dl (35-150); Total Iron Binding Cap Calc 388 mcg/dl (250-450); Transferrin 277 mg/dl (200-360); Transferrin (FE) Percent Satur 13 % (15-50)
[2025-06-30] MEDS: cefTRIAXone SODIUM 1,000 MG/50 ML BAG IV SCH (17:25)
--- NOTE | 2025-07-01 10:33 | Neurology Consultation ---
Date of Consultation July 01, 2025 Assessment & Plan (1) Orthostatic intolerance: History of Present Illness Attending Physician: Rupa Fry DO History of Present Illness S: pt this morning feeling well. per pt and her son, she always falls when she is trying stand and walk. no symptoms when sitting or laying. she is completely awake and never LOC. she denies her leg giving out due to weakness. she just feels little lightheaded and not feeling right and she feels like she is going to faint but no LOC. no vertigo or spinning. she usually falls side or backwards. she has ongoing issues with recurrent UTI and she gets confusion from it and she does admit she does not drink enough water. had cardiac ablation recently for her atrial fib. chart reviewed. CTA with rt ICA 60% narrowing that is unchanged and CTA head negative. CT head negative. this morning no new deficits. ED admission HPI: This is a 79-year-old female presenting after a fall. Patient says she has felt somewhat weak and unwell for the past few days. She notes that yesterday she had a ground-level fall. She reports seeing her head. Since then having a headache. Patient notes that earlier this morning she began having difficulty forming words very transiently. She had no facial droop or slurred speech. She reports transient left arm pain that is since resolved. Currently she reports just headache. Allergies Allergy/AdvReac Type Severity Reaction Status Date / Time sulfamethoxazole Allergy Intermediate Rash Verified 06/29/25 16:02 [From Bactrim] trimethoprim [From Bactrim] Allergy Intermediate Rash Verified 06/29/25 16:02 codeine AdvReac Intermediate Vomiting & Verified 06/29/25 16:02 hallucinations Home Medications Medication Instructions Recorded Confirmed Type loratadine 10 mg tablet (Allergy 10 mg PO QAM 06/29/20 06/29/25 History Relief (loratadine)) nitroglycerin 0.4 mg sublingual 0.4 mg sublingual Q5M PRN chest 04/29/23 06/29/25 Rx tablet pain #25 tabs clopidogrel 75 mg tablet 75 mg PO DAILY 06/09/23 06/29/25 History albuterol sulfate 90 mcg/actuation 2 puff inhalation QID PRN 01/27/24 06/29/25 Rx aerosol inhaler (Ventolin HFA) shortness of breath or wheezing #18 grams rosuvastatin 40 mg tablet (Crestor) 40 mg PO DAILY #90 tabs 07/13/24 06/29/25 Rx bupropion HCl 300 mg 24 hr tablet, 300 mg PO QAM #90 tabs 07/19/24 06/29/25 Rx extended release metformin 500 mg tablet 500 mg PO BID #200 tabs 08/04/24 06/29/25 Rx fluticasone fur. 200 mcg-umeclid 1 inh inhalation DAILY #180 ea 08/31/24 06/29/25 Rx 62.5 mcg-vilant 25 mcg inhalat.powder (Trelegy Ellipta) losartan 50 mg tablet 50 mg PO DAILY #90 tabs 09/14/24 06/29/25 Rx ibandronate 150 mg tablet 150 mg PO MONTHLY #3 tabs 09/24/24 06/29/25 Rx montelukast 10 mg tablet 10 mg PO QPM #90 tabs 10/27/24 06/29/25 Rx (Singulair) Auto Titrating CPAP #1 ea 11/15/24 06/07/25 Rx blood sugar diagnostic (Accu-Chek #100 ea 12/04/24 06/07/25 Rx Sandy Plus test strips) blood sugar diagnostic (OneTouch #100 ea 12/28/24 06/07/25 Rx Ultra Test strips) isosorbide mononitrate 30 mg 30 mg PO QAM 01/07/25 06/29/25 History tablet,extended release 24 hr vitamin B complex 1 tab PO QAM 01/07/25 06/29/25 History ascorbic acid (vitamin C) 500 mg 500 mg PO DAILY 01/14/25 06/29/25 History capsule ferrous sulfate 325 mg (65 mg 325 mg PO DAILY #90 tabs 01/14/25 06/29/25 Rx iron) tablet pramipexole 0.25 mg tablet 0.25 mg PO QPM #60 tabs 01/14/25 06/29/25 Rx apixaban 5 mg tablet (Eliquis) 5 mg PO BID #180 tabs 02/25/25 06/29/25 Rx fenofibrate 54 mg tablet 54 mg PO QAM #90 tabs 03/18/25 06/29/25 Rx pantoprazole 40 mg tablet,delayed 40 mg PO QAM #90 tabs 03/18/25 06/29/25 Rx release (Protonix) mupirocin 2 % topical ointment 1 applic topical BID PRN SKIN 03/29/25 06/29/25 History IRRITATIONS venlafaxine 150 mg 150 mg PO HS 03/29/25 06/29/25 History capsule,extended release 24 hr guaifenesin 600 mg tablet, 600 mg PO Q12 #12 tabs 04/01/25 06/29/25 Rx extended release 12 hr (Mucinex) furosemide 20 mg tablet 20 mg PO QAM PRN weight gain #30 04/15/25 06/29/25 Rx tabs donepezil 5 mg tablet 5 mg PO DAILY 05/04/25 06/29/25 History Portable Oxygen #1 ea 05/11/25 06/07/25 Rx diltiazem HCl 360 mg 360 mg PO DAILY 3 months #90 caps 05/16/25 06/29/25 Rx capsule,extended release 24 hr metoprolol succinate 50 mg 150 mg (3 x 50 mg) PO BID #180 tabs 05/16/25 06/29/25 Rx tablet,extended release 24 hr mirabegron 50 mg tablet,extended 50 mg PO QAM #90 tabs 05/19/25 06/29/25 Rx release 24 hr (Myrbetriq) magnesium oxide 400 mg PO TID #90 tabs 05/21/25 06/29/25 Rx levothyroxine 50 mcg tablet 50 mcg PO DAILYBB #90 tabs 06/02/25 06/29/25 Rx lorazepam 0.5 mg tablet 0.5 mg PO TID PRN anxiety or 06/20/25 06/29/25 Rx restless legs #90 tabs Patient History Medical History (Updated 07/01/25 @ 10:33 by Ramone Shelby MD) Fracture of proximal phalanx of digit of left hand Hypomagnesemia Infection due to parainfluenza virus 3 Atrial flutter with rapid ventricular response Anxiety Depression Type 2 diabetes mellitus NIDDM GERD (gastroesophageal reflux disease) Hyperlipidemia Hypomagnesemia Ambulatory dysfunction Elevated brain natriuretic peptide (BNP) level Enterovirus infection Rhinovirus infection Cough Shortness of breath Mild cognitive disorder CAD (coronary atherosclerotic disease) Hypertension Asthma Pericardial effusion PAD (peripheral artery disease) Hypomagnesemia CR (acute kidney injury) Meningioma Pseudoaneurysm of left femoral artery Left groin mass Abdominal distension Diaphoresis Chest discomfort Dyspnea on exertion Abnormal thyroid blood test Cough Close exposure to 2019-nCoV Conjunctivitis Close exposure to 2019-nCoV Cough productive of purulent sputum History of COVID-19 Dx 05/2020 (treated inpatient at [facility]) Asthma Well controlled Closed fracture of right distal fibula Thyroid nodule Osteoporosis Surgical History Status post placement of cardiac pacemaker Hx of cardiac cath 06/05/2023 H/O laminectomy (~1991) cervical laminectomy. full rom S/P right knee arthroscopy History of esophagogastroduodenoscopy (EGD) History of colonoscopy History of cholecystectomy History of corneal transplant R/L Family History Father Diabetes Heart disease Hemangioma Glaucoma Asthma Hypertension Mother Stroke Other No family history of adverse response to anesthesia Social History Smoking Status: Never smoker Tobacco Type: Cigarettes Age Started Using Tobacco: 14; Age Quit Using Tobacco: 41; packs per day: 0.5; Second Hand Exposure: No; Do You Dip or Chew Tobacco: No; Hx Alcohol Use: No Hx Substance Use: No Preferred Language: Lao Communication Ability: Effective Visual Impairment: No Limitations Hearing Ability: Normal Channel Marketing Manager Required: No Beliefs That Will Affect Care: None marital status: Current Living Situation: Spouse current occupational status: retired 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 Feels Safe at Home: Yes Dental Care, Regularly: Yes Seatbelt Use: always Assistive Devices: Cane and Walker Exam (Neuro) Physical Exam: HEENT: normocephalic grossly Neuro: Mental: AOx4, fluent speech, normal comprehension, no apraxia, no L/R confusion, no neglect CN: PERRL, Full EOM, symmetric face, Motor: No abnormal movements, normal tone, 5/5 t/o bilaterally Sens: intact to touch b/l grossly lower legs Coord: intact FNT b/l DTR: 1+ sym b/l Impression: 79 yo female with recurrent falls appears to be due to orthostatic intolerance in setting of dehydration, recurrent UTI contributing to her confusion and dehydration. does not appears to be vascular event or seizure. Recommendations: educated pt and her son in details. pt to stand up slowing and wait 10 seconds prior to movement. avoid sudden movement/position changes. strict UTI control/management hydration with avoid dehydration not much else to offer from neurology will sign off. Chart reviewed I have spent more than 50% educating patient about potential diagnosis and neurological evaluation and coordinating care with patient's treatment team. Total time spent (including chart review and coordination of care): 55 min (this includes chart review). Results & Data Vital Signs (Past 12 Hours) Vital Signs Temp Pulse Resp BP Pulse Ox O2 Del Method O2 Flow Rate 07/01/25 08:48 Nasal Cannula 2 07/01/25 07:55 36.8 C 87 16 137/90 95 Nasal Cannula 2 07/01/25 07:20 36.9 C 84 19 135/88 90 Room Air PG Care Time/CCT Total # of Minutes Spent Total Time Spent with Patient: Total time spent is greater than 50% in coordination of care (as documented) at patient's floor/unit and/or counseling patient: Coding Level of Care Code 91533 IN/OBS CONSULT LVL 3,45M Diagnoses Orthostatic intolerance I95.1
--- NOTE | 2025-07-01 13:23 | Magnetic Resonance Report ---
MRI OF THE BRAIN WITHOUT IV CONTRAST CLINICAL HISTORY: Recurrent falls. Altered mental status. Dizziness. COMPARISON STUDY: MRI of the brain March 11, 2025. Head CT and CTA of the head June 29, 2025. TECHNIQUE: MRI of the brain was performed utilizing various T1 and T2-weighted sequences in the axial , sagittal, and coronal planes. IV contrast was not administered for this examination. FINDINGS: There are no foci of restricted diffusion to suggest acute infarct. No acute intracranial h emorrhage, midline shift or mass effect is present. Basal cisterns are patent. Flow-voids for the anushka or intracranial vessels are present. Mild ventricular dilatation is unchanged from earlier exams and related to atrophy. White matter T2 hyperintense foci suggest moderate small vessel disease. A 1 cm e xtra-axial T2 hypointense, T1 hypointense lesion overlying the left frontal lobe on axial image 12 of corresponds to a densely calcified lesion by CT. This is benign and unchanged. Minimal secretions within the left sphenoid sinus. IMPRESSION: 1. No acute intracranial findings. 2. No change in appearance of the brain since MRI of March 11, 2025. ACT 112: Negative or not required by law. Electronically signed by: Gorge Penny M.D. 07/01/2025 1:21 PM
--- NOTE | 2025-07-01 13:37 | Hospitalist Progress Note ---
Date of Service July 01, 2025 Assessment & Plan (1) UTI (urinary tract infection): (2) Concussion: (3) Recurrent falls: Plan Heidi James is a 79 yo woman with PMH Of A-fib, diabetes, CAD s/p stent to RRCA on May 2023, carotid stenosis, cervical laminectomy, CHF. recurrent UTI she's been having falling episode for past 4-5 months, she's was advised to use a roller walker, but unable to use it when she's get out from the shower. on 06/29, came to ED with fall, AMS, CT head negative and admitted for UTI, septic encephalopathy; pending CTA to r/o carotid stenosis and CT neck to r/o spine fracture recurrent fall UTI, septic encephalopathy volume overload on CXR hx of A-fib s/p ablation, CAD hx of carotid stenosis (60% stenosis of carotid bulbs, severe stenosis of proximal right ECA) diabetes with neuropathy PMH of hypomagnesemia hx of PVD with left femoral artery pseudoaneursym hypothyroidism goiter rstles leg syndrome recurrent fall started 3-4 months ago await PT/OT recommendation PT and OT, orthostatic blood pressure spoke with son, Javy, plan for switching her effexor back to lexapro noted she's on lorazepam 0.5mg TID carotid stenosis-f/u with vascular surgery Dr. Birmingham outpatient vascular surgery reviewed the CTA. no role for acute inpatient intervention UTI, septic encephalopathy c/w ceftriaxone, f/u urine culture plan to dc home with macrobid hx of hypomagnesemia. severe stenosis of proximal right ECA need f/u with vascular surgery memory impairment started since jan 2025. ?? concussion versus med side effect f/u with neurology for monitoring may benefit from aricept volume overload on CXR hold off on lasix today given she's been NPO chronically medical problem hx of A-fib s/pablation , CAD s/p stent to RCA in may 2023 plavix and eliquis, noted she's on protonix metoprolol XL 50mg daily, she's cardizem 360mg daily isosorbide mononitrate 30mg ER crestor 40mg daily PVD with pseudoaneurysm, s/p thrombin injection [place] [facility] [place]/2023 asthma-on singular and trelegy elliptia mood disorder, she's on lorazepam 0.5mg TID PRN for anxiety effexor 150mg ER hypomagnesemia--magnesium oxide 400mg TID hypothyroidism-50mcg daily Admission and Anticipated Discharge Date Admission Date: June 29, 2025 Subjective spoke with vascular surgeon Dr. Birmingham, no role of urgent intervention plan for f/u in Dr. Birmingham office repeat PT/OT session treatment for UTI, potential discharge today/tomorrow if PT determine safe for discharge she's can work with her PCP about switching from effexor back to SSRI Physical Exam Physical Exam: VITALS: Reviewed. WEIGHT/BMI reviewed. GEN: Healthy appearing, well-developed, NAD. -Head: NC/AT; -Eyes: PERRL, EOMI. No discharge or redn ess; -Ears: External ears are normal. Normal TMs. -Nose: Normal nares. -Mouth and throat: MMM. Normal gums, muc shawn, palate,. Good dentition. NECK: Supple, with no masses. CV: RRR, no m/r/g. LUNGS: CTAB, no w/r/c. no wheezing; no rales ABD: Soft, NT/ND, NBS, no masses or organomegaly. : N/A SKIN: Warm, well perfused. No skin rashes or abnormal lesions. MSK: No deformities, Normal gait. Results & Data Results & Data Vital Signs (Past 12 Hours) Vital Signs Temp Pulse Resp BP Pulse Ox O2 Del Method O2 Flow Rate 07/01/25 11:46 36.5 C 87 16 130/67 97 Nasal Cannula 07/01/25 08:48 Nasal Cannula 2 07/01/25 07:55 36.8 C 87 16 137/90 95 Nasal Cannula 2 07/01/25 07:20 36.9 C 84 19 135/88 90 Room Air Laboratory Results Laboratory Results - last 72 hr 06/29/25 06/29/25 06/30/25 12:14 20:23 13:11 WBC 8.16 RBC 3.53 L Hgb 11.1 L Hct 34.6 L MCV 98.0 MCH 31.4 MCHC 32.1 RDW Std Deviation 53.3 H RDW Coeff of Ambreen 14.9 H Plt Count 373 MPV 9.3 L Immature Gran % (Auto) 0.5 Neut % (Auto) 78.4 Lymph % (Auto) 12.4 Gregg % (Auto) 6.1 Eos % (Auto) 2.1 Baso % (Auto) 0.5 Neut # (Auto) 6.40 Lymph # (Auto) 1.01 L Gregg # (Auto) 0.50 Eos # (Auto) 0.17 Baso # (Auto) 0.04 Immature Gran # (Auto) 0.04 Sodium 140 Potassium 3.8 Chloride 104 Carbon Dioxide 30 Anion Gap 6 BUN 21 Creatinine 1.01 Est Cr Clr Drug Dosing 41.4 eGFR 56.98 BUN/Creatinine Ratio 20.8 H Glucose 136 H Calcium 10.1 Ionized Calcium Iron 52 TIBC 388 Transferrin 277 Transferrin % Sat 13 L Total Bilirubin 0.4 AST 14 ALT 7 Alkaline Phosphatase 36 Troponin I High Sens 7.7 Total Protein 7.6 Albumin 4.2 Globulin 3.4 Albumin/Globulin Ratio 1.2 Urine Color Yellow Urine Appearance Cloudy A Urine pH 7.5 Ur Specific [place] > 1.045 H Urine Protein Negative Urine Glucose (UA) Negative Urine Ketones Negative Urine Blood Negative Urine Nitrite Negative Urine Bilirubin Negative Urine Urobilinogen Negative Ur Leukocyte Esterase 1+ H Urine WBC (Auto) 0-5 Urine RBC (Auto) 3-5 H U Hyaline Cast (Auto) 3-5 H U Epithel Cells (Auto) 0-2 Urine Bacteria (Auto) None Seen Urine Comment 07/01/25 13:09 WBC RBC Hgb Hct MCV MCH MCHC RDW Std Deviation RDW Coeff of Ambreen Plt Count MPV Immature Gran % (Auto) Neut % (Auto) Lymph % (Auto) Gregg % (Auto) Eos % (Auto) Baso % (Auto) Neut # (Auto) Lymph # (Auto) Gregg # (Auto) Eos # (Auto) Baso # (Auto) Immature Gran # (Auto) Sodium Potassium Chloride Carbon Dioxide Anion Gap BUN Creatinine Est Cr Clr Drug Dosing eGFR BUN/Creatinine Ratio Glucose Calcium Ionized Calcium 1.31 Iron TIBC Transferrin Transferrin % Sat Total Bilirubin AST ALT Alkaline Phosphatase Troponin I High Sens Total Protein Albumin Globulin Albumin/Globulin Ratio Urine Color Urine Appearance Urine pH Ur Specific [place] Urine Protein Urine Glucose (UA) Urine Ketones Urine Blood Urine Nitrite Urine Bilirubin Urine Urobilinogen Ur Leukocyte Esterase Urine WBC (Auto) Urine RBC (Auto) U Hyaline Cast (Auto) U Epithel Cells (Auto) Urine Bacteria (Auto) Urine Comment PG Care Time/CCT Total # of Minutes Spent Total Time Spent with Patient: Total time spent is greater than 50% in coordination of care (as documented) at patient's floor/unit and/or counseling patient: Coding Level of Care Code 34161 SUB INP/OBS CARE 2/35MIN Diagnoses UTI (urinary tract infection) N39.0 Concussion S06.0XAA Recurrent falls R29.6 Time Spent (min) 35
[2025-07-01 13:47] LABS: Alanine Aminotransferase 8.0 U/L (7-52); Albumin Globulin Ratio 1.1 (0.9-2); Alkaline Phosphatase 39.0 U/L (34-104); Anion Gap 5.0 (3-11); Bilirubin,Total 0.4 mg/dl (0.2-1.0); Blood Urea Nitrogen 18.0 mg/dl (6-23); Calcium 9.8 mg/dl (8.6-10.3); Carbon Dioxide 30.0 mmol/L (21-32); Chloride 102.0 mmol/L (98-107); Creatinine Clr Calc Pharmacy 39.5 ml/min; Globulin 3.5 gm/dl (2.5-4.0); Glucose 154.0 mg/dl (70-99(Fasting)); Magnesium 1.9 mg/dl (1.7-2.4); Potassium 4.0 mmol/L (3.5-5.1); Sodium 137.0 mmol/L (136-145); Total Protein 7.4 gm/dl (6.0-8.3)
--- NOTE | 2025-07-01 14:15 | Magnetic Resonance Report ---
MRI OF THE CERVICAL SPINE WITHOUT IV CONTRAST CLINICAL HISTORY: Recurrent falls. Spinal stenosis. COMPARISON STUDY: Cervical spine CT dated 04/03/2025. TECHNIQUE: MRI of the cervical spine is performed utilizing various T1 and T2-weighted sequences in t he axial and sagittal planes. IV contrast was not administered for this examination. The examination is significantly degraded by motion artifact. FINDINGS: Cervical spine: Marrow signal intensity is heterogeneous. Vertebral body height and alignment are fela ntained throughout the cervical spine. There is straightening of the cervical lordosis. Anterior oste ophytes are seen throughout. There are mild chronic superior endplate compression deformities of T2 a nd T3. There is no evidence of acute fracture. The atlantodental articulation is maintained noting pr oductive degenerative change. The spinous processes appear intact. No destructive bony lesion is seen . There is chronic degenerative endplate changes at several levels with minimal endplate edema at C5- C6. Intervertebral discs: Disc desiccation loss of height is seen to the cervical spine. Loss of the supe rior C3-C4 and [id number] at the remaining levels. Spinal cord: The cervical cord is normal in morphology and signal intensity. C2-C3: Unremarkable. C3-C4: A posterior disc osteophyte complex abuts the ventral cord. The minimum AP canal diameter dylan ures 6 mm. Lateral disc bulge is seen bilaterally. In conjunction with facet arthropathy there is sev ere bilateral neural foraminal stenosis, with probable impingement of the exiting bilateral C4 nerve roots. C4-C5: A posterior disc osteophyte complex abuts the ventral cord. The minimum AP canal diameter at t his level measures 7 mm. There is a large right lateral disc bulge, with a smaller lateral disc bulge seen on the left. In conjunction with facet arthropathy there is severe bilateral neural foraminal s tenosis, with probable impingement on the exiting bilateral C5 nerve roots. C5-C6: A posterior disc ossified complex eccentric to the left effaces the ventral subarachnoid space . There are left larger than right lateral disc bulges. In conjunction with facet arthropathy there i s moderate to severe right and moderate left neural foraminal stenosis. C6-C7: A posterior disc osteophyte complex effaces the ventral subarachnoid space. There is a right l ateral disc bulge. In conjunction with facet arthropathy there is moderate to severe right and modera te left neural foraminal stenosis. C7-T1: The central canal is clear. There is a small right lateral disc bulge which contribute to mild right neural foraminal stenosis. The left neural foramen appears patent. Soft tissues: The prevertebral and paraspinous soft tissues are normal as imaged. Brain parenchyma: The visualized brain parenchyma and skull base is within normal limits. Mucosal thi ckening is noted within the left maxillary sinus and the sphenoid sinuses. IMPRESSION: 1. Advanced multilevel cervical spondylosis as above. See discussion for detailed level by level anal ysis. 2. The cervical cord is normal in morphology and signal intensity. 3. There are mild chronic superior endplate compression deformities at T2 and T3. 4. No acute bony abnormality or destructive bony process is seen. Electronically signed by: Rico Sharp M.D. 07/01/2025 2:14 PM
--- NOTE | 2025-07-02 | Electrocardiogram Report ---
Test Reason : Blood Pressure : */* mmHG Vent. Rate : 87 BPM Atrial Rate : 261 BPM P-R Int : * ms QRS Dur : 120 ms QT Int : 416 ms P-R-T Axes : * 233 3 degrees QTcB Int : 500 ms Ventricular-paced rhythm Atrial flutter Abnormal ECG When compared with ECG of 16-Jun-2025 12:58, No significant change was found Confirmed by Zohaib Singh ([id number]) on 07/01/2025 11:59:43 PM Referred By: Confirmed By: Zohaib Singh
[2025-07-02 07:37] VITALS: BP 148/93; RESP 16; TEMP 98.1
[2025-07-02 08:03] LABS: Creatinine Clr Calc Pharmacy 39.5 ml/min
--- NOTE | 2025-07-02 08:30 | XRay Report ---
SINGLE VIEW CHEST CLINICAL HISTORY: Dyspnea. Volume overload. FINDINGS: An AP, portable, upright chest radiograph is compared to study dated 06/29/2025 and correlat ed with chest CT dated 01/07/2025. A 2-lead cardiac pacemaker is unchanged in position. The heart is en larged and noting atherosclerotic calcification of the thoracic aorta. The pulmonary vasculature is n oncongested. Chronic interstitial thickening is similar to previous. There is bibasilar scarring/atel ectasis. No airspace consolidation or large pleural effusion is identified. No pneumothorax is seen. The skeletal structures are osteopenic. There are chronic/healed right-sided rib fractures. Cholecyst ectomy clips are noted in the right upper quadrant. IMPRESSION: 1. Cardiomegaly and cardiac pacemaker without radiographic evidence of congestive failure. 2. No airspace consolidation or pleural effusion is identified. ACT 112: Negative or not required by law. Electronically signed by: Rico Sharp M.D. 07/02/2025 8:29 AM
[2025-07-02] MEDS: ALBUT/IPRATROP 3MG/0.5MG NEB 3 ML VIAL NEB SCH (10:07)
[2025-07-02 10:09] VITALS: O2SAT 91
[2025-07-02] MEDS: predniSONE 20 MG TAB PO STA (10:52)
[2025-07-02] MEDS: MAGNESIUM SULFATE / D5W 1 GM/100 ML BAG IV ONE (10:52)
[2025-07-02] MEDS: CYANOCOBALAMIN 1000 MCG/ML VIAL IM SCH (13:14)
[2025-07-02 13:32] VITALS: PULSE 87
--- NOTE | 2025-07-02 15:07 | Discharge Summary ---
Discharge Summary Date of Service July 02, 2025 Principal Dx & Hospital Course #1 = Principal Diagnosis (1) UTI (urinary tract infection): Hospital course she's has hx of A-fib, diabetes, CAD s/p stent to RCA in May 2023. carotid stenosis, CHF she's has falling epsode for past 4-5 months, and was told to use rolling walker but unable to do so consistently on day of admission, came in with fall episode, concusion, disoriented. CT head negative. brain MRI negative her CTA found severe stenosis of right ECA and 60% stenosis of right carotid bulb she was initially on oxygen and has shallow breathing. spoke with vascular surgeon, Dr. Osman, he reviewed the imaging and decide for outpatient f/u for carotid stenosis. for her recurrent falls; seen by PT and recommended home with home PT. after some discussion, patient and her son agreeable for home PT for her forgetfulness, found to has B12 deficiency with B12 below 300, s/p IM injection on 07/02/2025 discussed working with PCP about monthly injection. discussed about working with PCP to switch from effexor to SSRI for her anxiety for her hypoxia episode, found to has copd exacerbation, low dose prednisone for 6 days she's state use 2 liter oxygen with ambulation and room air at rest. provided with duoneb she was dc home on 07/02/2025 with home PT, and prednisone for copd exacerbation she may need f/u with concussion clinics given her memory impairment (2) Concussion: (3) Recurrent falls: Plan Heidi James is a 79 yo woman with PMH Of A-fib, diabetes, CAD s/p stent to RRCA on May 2023, carotid stenosis, cervical laminectomy, CHF. recurrent UTI she's been having falling episode for past 4-5 months, she's was advised to use a roller walker, but unable to use it when she's get out from the shower. on 06/29, came to ED with fall, AMS, CT head negative and admitted for UTI, septic encephalopathy; pending CTA to r/o carotid stenosis and CT neck to r/o spine fracture recurrent fall UTI, septic encephalopathy volume overload on CXR hx of A-fib s/p ablation, CAD hx of carotid stenosis (60% stenosis of carotid bulbs, severe stenosis of proximal right ECA) diabetes with neuropathy PMH of hypomagnesemia hx of PVD with left femoral artery pseudoaneursym hypothyroidism goiter rstles leg syndrome recurrent fall started 3-4 months ago await PT/OT recommendation PT and OT, orthostatic blood pressure spoke with son, Javy, plan for switching her effexor back to lexapro noted she's on lorazepam 0.5mg TID carotid stenosis-f/u with vascular surgery Dr. Birmingham outpatient vascular surgery reviewed the CTA. no role for acute inpatient intervention UTI, septic encephalopathy c/w ceftriaxone, f/u urine culture plan to dc home with macrobid hx of hypomagnesemia. severe stenosis of proximal right ECA need f/u with vascular surgery memory impairment started since jan 2025. ?? concussion versus med side effect f/u with neurology for monitoring may benefit from aricept volume overload on CXR hold off on lasix today given she's been NPO chronically medical problem hx of A-fib s/pablation , CAD s/p stent to RCA in may 2023 plavix and eliquis, noted she's on protonix metoprolol XL 50mg daily, she's cardizem 360mg daily isosorbide mononitrate 30mg ER crestor 40mg daily PVD with pseudoaneurysm, [place] [facility] [place] asthma-on singular and trelegy elliptia mood disorder, she's on lorazepam 0.5mg TID PRN for anxiety effexor 150mg ER hypomagnesemia--magnesium oxide 400mg TID hypothyroidism-50mcg daily Notes For Next Care Provider b12 repletion f/u with vascular surgery recheck urine analysis on follow up visit consider switching effexor to SSRI given memory impairment consider mini-mental status exam in 3-4 weeks Admission HPI Per Admitting Provider Heidi James is a 79 yo woman with PMH of diabetes, neuropathy, A-fib s/p ablation, right side carotid stenosis, CAD s/p stent, pulmonary nodules. she's has cervical laminectomy in 1991, and also has right knee surgery since 4-5 months ago, she's been having recurrent falls, and was advised to used a walker on 06/29/2025, she's has a fall episode, head strike the ground, and been having confusion she presented to our ED for evaluation, ED head negative, but her friend mentioned ongoing confusion and disoriented she was admitted for UTI, septic encephalopathy she's denied any dizziness, knee giving out. no palpitation, no chest pain she was suppose to f/u with cardiology but was admitted to the hospital in the ED, her CXR concern for volume overload. she will be admitted for recurrent fall, concussion and UTI with encephalopathy Discharge Exam VITALS: Reviewed. WEIGHT/BMI reviewed. GEN: Healthy appearing, well-developed, NAD. -Head: NC/AT; -Eyes: PERRL, EOMI. No discharge or redness; -Ears: External ears are normal. Normal TMs. -Nose: Normal nares. -Mouth and throat: MMM. Normal gums, mucosa, palate,. Good dentition. NECK: Supple, with no masses. CV: RRR, no m/r/g. LUNGS: CTAB, no w/r/c. no wheezing; no rales ABD: Soft, NT/ND, NBS, no masses or organomegaly. : N/A SKIN: Warm, well perfused. No skin rashes or abnormal lesions. MSK: No deformities, Normal gait. Discharge Plan Discharge Items Patient Disposition: Home - Home Health Services Reason For Visit: UTI, FALL, SEPTIC ENCEPHALOPATHY, CONCUSSION Discharge Diagnosis: recurrent fall; UTI b12 deficiency cartoid stenosis Condition on Discharge: Fair Activity: Per Instructions section Lifting: Gradually increase as tolerated Non-emergency contact: Primary Care Provider and Smeller Call non-emergency contact if: you have any medication questions and you have a fever Follow-up/Referrals: Rico Arevalo MD [Primary Care Provider] - Joey Birmingham MD [Physician] - Diet: Heart Healthy Addtl Attending Provider Instructions: you will follow up with Dr. 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 Stand-Alone Forms: My [employer], Smoking Cessation Medications and DC Order Prescriptions: New ipratropium-albuterol 0.5 mg-3 mg(2.5 mg base)/3 mL Solution For Nebulization 3 ml NEB Q6R 14 Days Qty: 150 0RF prednisone 20 mg tablet 20 mg PO DAILY 6 Days Qty: 6 0RF Rx Instructions: days 11-21 of therapy Continued albuterol sulfate [Ventolin HFA] 90 mcg/actuation HFA aerosol inhaler 2 puff INH QID PRN (Reason: shortness of breath or wheezing) Qty: 18 5RF Rx Instructions: Please substitute least expensive albuterol inhaler. rosuvastatin [Crestor] 40 mg tablet 40 mg PO DAILY Qty: 90 3RF bupropion HCl 300 mg tablet extended release 24 hr 300 mg PO QAM Qty: 90 3RF metformin 500 mg tablet 500 mg PO BID Qty: 200 3RF Trelegy Ellipta 200-62.5-25 mcg blister with device 1 inh inhalation DAILY Qty: 180 3RF Rx Instructions: rinse mouth and gargle after usage losartan 50 mg tablet 50 mg PO DAILY Qty: 90 3RF ibandronate 150 mg tablet 150 mg PO MONTHLY Qty: 3 3RF Rx Instructions: as directed. montelukast [Singulair] 10 mg tablet 10 mg PO QPM Qty: 90 3RF (DME) Accu-Chek Sandy Plus test strp Strip See Rx Instructions .Route Qty: 100 3RF Rx Instructions: check once daily As directed DX:E11.9 (DME) OneTouch Ultra Test Strip See Rx Instructions .Route Qty: 100 4RF Rx Instructions: onetouch ultra in vitro strip; check sugars once a day; DX E11.9 Eliquis 5 mg tablet 5 mg PO BID Qty: 180 3RF fenofibrate 54 mg tablet 54 mg PO QAM Qty: 90 3RF pantoprazole [Protonix] 40 mg tablet,delayed release (DR/EC) 40 mg PO QAM Qty: 90 3RF Hold Instructions: Provider's Order diltiazem HCl 360 mg capsule,extended release 24hr 360 mg PO DAILY 90 Days Qty: 90 3RF metoprolol succinate 50 mg tablet extended release 24 hr 150 mg PO BID Qty: 180 3RF Myrbetriq 50 mg tablet extended release 24 hr 50 mg PO QAM Qty: 90 3RF magnesium oxide 400 mg magnesium tablet 400 mg PO TID Qty: 90 5RF levothyroxine 50 mcg tablet 50 mcg PO DAILYBB Qty: 90 3RF Rx Instructions: Take first thing in the morning about 30 minutes prior to other medications and food. lorazepam 0.5 mg tablet 0.5 mg PO TID PRN (Reason: anxiety or restless legs) Qty: 90 0RF Patient Comments: Per daughter she takes every night at bedtime nitroglycerin 0.4 mg tablet, sublingual 0.4 mg sublingual Q5M PRN (Reason: chest pain) Qty: 25 0RF Rx Instructions: do not exceed 3 doses per episode clopidogrel 75 mg tablet 75 mg PO DAILY (DME) Auto Titrating CPAP Misc See Rx Instructions .Route Qty: 1 0RF Rx Instructions: 4- 15 pressure furosemide 20 mg tablet 20 mg PO QAM PRN (Reason: weight gain) Qty: 30 5RF ascorbic acid (vitamin C) 500 mg capsule 500 mg PO DAILY pramipexole 0.25 mg tablet 0.25 mg PO QPM Qty: 60 5RF Rx Instructions: administer 1 hour before leg restlessness starts ferrous sulfate 325 mg (65 mg iron) tablet 325 mg PO DAILY Qty: 90 1RF (DME) Portable Oxygen Misc See Rx Instructions .ROUTE .MEDSUPPLY Qty: 1 0RF Rx Instructions: by portable concentrator, loratadine [Allergy Relief (loratadine)] 10 mg tablet 10 mg PO QAM venlafaxine 150 mg capsule,extended release 24hr 150 mg PO HS mupirocin 2 % ointment 1 applic topical BID PRN (Reason: SKIN IRRITATIONS) guaifenesin [Mucinex] 600 mg Tablet Extended Release 12hr 600 mg PO Q12 Qty: 12 0RF vitamin B complex Tablet 1 tab PO QAM isosorbide mononitrate 30 mg tablet extended release 24 hr 30 mg PO QAM donepezil 5 mg tablet 5 mg PO DAILY Discharge Orders: Discharge Order (Routine); Ordered 07/02/25 Ordered By: Rupa Wilhelm/Other Patient Handouts: Vitamin B12 (cyanocobalamin) Injectable Solution, Falls Prevent Adjust Living Space, Falls Prevent Use Cane Walker, Exercises to Prevent Falls, ED Fall Prevention, Carotid Artery Disease Admission Data Admit Date/Time: 06/29/25 15:54 Attending Provider: Rupa Fry Admit Provider: Rupa Fry Primary Care Provider: Rico Arevalo Other Providers: Rupa Fry; [facility],Home Healthcare; [facility],Referral Center; Joey Birmingham Other Interventions: Discharge Summary Assessment (RN) Last Done: 07/02/25 13:30 Hospital Stay Data Consultations 06/29/25 14:53 ED Decision to Admit Stat 07/01/25 10:17 Consult Vascular Surgery Routine Diagnostic Imagining Performed 06/29/25 12:30 CT head/brain wo con Stat 06/29/25 14:54 CTA head w con [CT angio head w con] Stat CTA neck with con [CT angio neck with con] Stat 07/01/25 10:19 MRI Brain [MR brain wo con] Urgent MRI Cervical [MR cervical spine wo con] Stat Pending Results Patient Have Any Pending Studies at Discharge: Yes Discharge Instructions Given to Patient (Per Discharging Provider) you will follow up with Dr. 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
== END 2025-07-02 14:45 | disposition home health service (06) | DRG 689 ==
LOC: ED 12:02 → EDINP 15:54 → INTOOBSV 15:54 → 3W 22:00